=== PATIENT | female | born 1935 | race African-American/Black ===

== ENCOUNTER 2016-04-20 09:36 | Inpatient (IN) | payer OTHER ==
[2016-04-20] MEDS ORDERED: SODIUM CHLORIDE 500 ML IV STA (09:55)
--- NOTE | 2016-04-20 09:55 | PDOC ---
History of Present Illness - General History Source: Patient - History of Present Illness Timing/Duration: other Associated Symptoms: reports: cough, headaches, malaise, weakness. denies: chest pain, fever/chills, nausea/vomiting, shortness of breath <Brandy BarnettEitan - Last Filed: 04/20/16 17:18> <EctorToi - Last Filed: 04/24/16 09:29> - General Chief Complaint: Weakness Stated Complaint: WEAK Time Seen by Provider: 04/20/16 09:39 Past History - Past Medical History Anemia: No Asthma: No Cancer: No Cardiac Disorders: No CVA: No COPD: No CHF: No Dementia: No Diabetes: Yes GI Disorders: No Disorders: No HTN: Yes Hypercholesterolemia: Yes Liver Disease: No Seizures: No Thyroid Disease: No - Surgical History Appendectomy: No Cardiac Surgery: No Cholecystectomy: No Lung Surgery: No Neurologic Surgery: Yes (SURGERY FOR HERNIATED RISK) Orthopedic Surgery: No - Immunization History Immunization Up to Date: No - Psycho/Social/Smoking Cessation Hx Anxiety: No Suicidal Ideation: No Smoking History: Never smoked Have you smoked in the past 12 months: Yes Number of Cigarettes Smoked Daily: 10 Information on smoking cessation initiated: No 'Breaking Loose' booklet given: 03/23/14 Hx Alcohol Use: No Drug/Substance Use Hx: No Substance Use Type: None Hx Substance Use Treatment: No <[place],BrandyDian - Last Filed: 04/20/16 17:18> <Ector,Toi - Last Filed: 04/24/16 09:29> - Past Medical History Allergies/Adverse Reactions: Allergies Allergy/AdvReac Type Severity Reaction Status Date / Time No Known Allergies Allergy Verified 04/20/16 09:50 Home Medications: Ambulatory Orders Amlodipine Besylate [Norvasc -] 10 mg PO DAILY 03/22/14 Losartan Potassium 100 mg PO DAILY 03/23/14 Acetaminophen W/ Codeine #3 [Tylenol # 3 -] 1 tab PO TID 04/20/16 Brimonidine Tartrate/Timolol [Combigan Eye Drops] 1 drop OU DAILY 04/20/16 Dorzolamide HCl [Trusopt 2%] 1 drop OU BID 04/20/16 Insulin (Novolog 70/30) [Novolog Mix 70/30 Flexpen -] 15 units SQ DAILY Latanoprost 0.005% Eye Drops [Xalatan 0.005% Eye Drops -] 1 drop OU HS 04/20/16 Review of Systems - Review of Systems Constitutional: Yes: Malaise, Weakness. No: Chills, Fever Respiratory: Yes: Cough. No: Shortness of Breath Cardiac (ROS): No: Chest Pain ABD/GI: No: Diarrhea, Nausea, Vomiting, Abdominal cramping : No: Hematuria <Garrett Barnett - Last Filed: 04/20/16 17:18> *Physical Exam - Vital Signs Last Vital Signs Temp Pulse Resp BP Pulse Ox 98.5 F 123 H 18 164/70 94 L 04/20/16 09:50 04/20/16 09:50 04/20/16 09:50 04/20/16 09:50 04/20/16 09:50 - Physical Exam General Appearance: Yes: Appropriately Dressed. No: Apparent Distress HEENT: positive: Normal Voice. negative: Scleral Icterus (R), Scleral Icterus ( L) Neck: positive: Supple. negative: Lymphadenopathy (R), Lymphadenopathy (L) Respiratory/Chest: positive: Lungs Clear, Normal Breath Sounds. negative: Respiratory Distress Cardiovascular: positive: S1, S2, Tachycardia Gastrointestinal/Abdominal: positive: Soft. negative: Tender Integumentary: positive: Dry, Warm Neurologic: positive: Fully Oriented, Alert, Normal Mood/Affect <Garrett Barnett - Last Filed: 04/20/16 17:18> - Vital Signs Last Vital Signs Temp Pulse Resp BP Pulse Ox 97.4 F L 74 20 137/64 99 04/24/16 08:56 04/24/16 08:56 04/24/16 08:56 04/24/16 08:56 04/24/16 08:58 <Toi Barney - Last Filed: 04/24/16 09:29> Heart Score/ECG Review - ECG Intrepretation Comment:: 04/20/16 11:16 Sinus tachycardia to 118 bpm <Garrett Barnett - Last Filed: 04/20/16 17:18> ED Treatment Course - LABORATORY CBC & Chemistry Diagram: 04/20/16 09:55 04/20/16 11:18 <Garrett Barnett Last Filed: 04/20/16 17:18> - LABORATORY CBC & Chemistry Diagram: 04/20/16 09:55 04/20/16 11:18 - ADDITIONAL ORDERS Additional order review: 04/20/16 12:40 Respiratory Virus Panel - Preliminary Nasopharyngeal Swab 04/20/16 12:40 Influenza Types A,B Antigen (MARI) - Final Nasopharyngeal Swab - Final 04/20/16 09:55 RBC 4.60 MCV 93.0 MCHC 32.6 RDW 12.8 MPV 9.7 Neutrophils % 86.3 H D Lymphocytes % 4.8 L D Monocytes % 7.7 Eosinophils % 0.0 D Basophils % 1.2 - Medications Given in the ED: ED Medications Discontinued Medications Generic Name Dose Route Start Last Admin Trade Name Freq PRN Reason Stop Dose Admin Acetaminophen 650 mg 04/20/16 11:25 04/20/16 11:39 Tylenol - PO 04/20/16 11:26 650 mg ONCE ONE Administration Acetaminophen 650 mg 04/20/16 12:44 04/20/16 13:19 Tylenol - PO 04/20/16 12:45 Not Given ONCE ONE Acetaminophen/Codeine Phosphate 1 tab 04/20/16 19:43 04/23/16 03:30 Tylenol # 3 - PO 1 tab Q8H PRN Administration FEVER OR PAIN Ceftriaxone Sodium 1 mg 04/20/16 16:01 04/20/16 17:35 Rocephin - IVPUSH 04/20/16 16:02 1 mg ONCE ONE Administration Sodium Chloride 500 mls @ 1,000 mls/hr 04/20/16 09:55 04/20/16 10:00 Normal Saline - IV 04/20/16 10:24 1,000 mls/hr ASDIR STA Administration Azithromycin 500 mg/ Dextrose 250 mls @ 250 mls/hr 04/20/16 16:01 04/20/16 16: 21 IVPB 04/20/16 17:00 250 mls/hr ONCE ONE Administration Ceftriaxone Sodium 50 mls @ 100 mls/hr 04/20/16 20:15 04/20/16 21:36 Rocephin 1gm Ivpb (Pre-Docked) IVPB 04/20/16 20:44 100 mls/hr ONCE ONE Administration Dipyridamole 32.9 mg/ Dextrose 32.9 mls @ 493.5 mls/hr 04/23/16 10:00 04/23/16 10:50 IVPB 04/23/16 10:03 493.5 mls/hr ONCE ONE Administration Methylprednisolone Sodium Succinate 80 mg 04/20/16 22:00 04/22/16 09:51 Solu-Medrol - IVPB 80 mg BID ERASTO Administration Methylprednisolone Sodium Succinate 40 mg 04/22/16 18:00 04/23/16 02:05 Solu-Medrol - IVPB 40 mg Q8H-IV ERASTO Administration <EctorToi - Last Filed: 04/24/16 09:29> Medical Decision Making - Medical Decision Making 04/20/16 09:54 Initial Comments: 04/05/15 18:22 79 yo F, hx of IDDM, HTN, anxiety, chronic lower back pain, here w/ malaise, weakness, headache and cough x several days. Denies body aches, fever, chills, nausea, vomiting, abdominal pain, change in bowel movements, dysuria, chest pain or shortness of breath. See exam Cough w/ malaise Pt tachy and hypoxic in ED w/ clear chest/lungs and unremarkable exam otherwise R/o PNA vs CHF vs ACS vs PE, r/o influenza -CXR -ekg -labs -NC and IVF -reassess 04/20/16 11:26 04/20/16 16:32 Influenza neg. No PNA on CXR but given cough w/ fever and mild elevation in wbc , will give dose of abx for CAP. Dimer sent and elevated >1000, w/ no PE on CTA. Chronic lung dze seen however on imaging and pt does admit to >40 pack year hx, though no official dx of COPD/emphysema. No wheezing on exam and moving air well. BNP also elevated >1K but given no e/o fluid overload clinically, will hold off on lasix at this time. 04/20/16 16:[address] Manzo since 12 noon with no answer. Was initially told by answering staff that Thad will be in a prayer service until 3:30, but that he would return call after that. At this point, now 4:30, there has been no callback from [facility] and when contacted by ED scribe and ED ledger clerk, number busy on multiple attempts. Will contact hospitalist at this time 04/20/16 16:39 As per hospitalist, was able to contact Dr Manzo who is ok admitting pt to his service. States he would like for ED to call him back 04/20/16 16:41 04/20/16 16:43 04/20/16 17:[address] Manzo who recs giving nebs in ED. Pt vitals since improved. Currently has ready bed 04/20/16 17:19 <Garrett Barnett - Last Filed: 04/20/16 17:18> - Medical Decision Making 04/24/16 09:29 The patient was seen and evaluated in conjunction with DAV Munoz under my direct supervision, ancillary studies were reviewed. I independently interviewed and evaluated the patient and I agree with the plan as outlined by DAV Barnett . <Toi Barney - Last Filed: 04/24/16 09:29> *DC/Admit/Observation/Transfer - Discharge Dispostion Admit: Yes <Garrett Barnett - Last Filed: 04/20/16 17:18> <Toi Barney - Last Filed: 04/24/16 09:29> Diagnosis at time of Disposition: Weakness, SOB (shortness of breath) - Discharge Dispostion Condition at time of disposition: Fair - Referrals
[2016-04-20 10:52] LABS: TROPONIN I 0.02 ng/ml (0.00-0.05)
[2016-04-20 10:55] LABS: BASOPHIL 1.2 % (0-2.0); MCH 30.3 pg (25.7-33.7); MCHC 32.6 g/dl (32.0-36.0); MEAN PLT VOLUME 9.7 fl (7.5-11.1); NEUTROPHILS 86.3 % (42.8-82.8); PLATELET COUNT 213 K/MM3 (134-434); RDW 12.8 % (11.6-15.6); WHITE BLOOD COUNT 12.7 K/mm3 (4.0-10.0)
[2016-04-20] MEDS ORDERED: ACETAMINOPHEN 325 MG TABLET (FP) PO ONE ×2 (11:25→12:44)
[2016-04-20] MEDS ORDERED: ACETAMINOPHEN 325 MG TABLET (FP) ONE (11:26)
[2016-04-20 12:03] LABS: ALBUMIN 3.8 g/dl (3.4-5.0); BILIRUBIN,TOTAL 0.4 mg/dL (0.2-1.0); CALCIUM 9.1 mg/dL (8.5-10.1); CREATININE 1.1 mg/dL (0.55-1.02); TOT PROT 7.7 g/dl (6.4-8.2)
[2016-04-20] MEDS ORDERED: AZITHROMYCIN IVPB 500 MG in DEXTROSE 5%-WATER - 250 ML IVPB ONE (16:01)
[2016-04-20] MEDS ORDERED: CEFTRIAXONE 50 ML ONE (16:43)
[2016-04-20 16:57] LABS: URINE APPEARANCE CLOUDY; URINE BILIRUBIN NEGATIVE (NEGATIVE); URINE BLOOD NEGATIVE (NEGATIVE); URINE COLOR LTYELLOW; URINE GLUCOSE (UA) NEGATIVE (NEGATIVE); URINE KETONE 1+ (NEGATIVE); URINE NITRITE NEGATIVE (NEGATIVE); URINE UROBILINOGEN NEGATIVE E.U./dl (0.2-1.0)
[2016-04-20 17:07] LABS: URINE LEUK ESTERASE 3+ (NEGATIVE); URINE PROTEIN 1+ (NEGATIVE)
[2016-04-20 17:30] LABS: URINE MUCUS RARE; URINE RBC 30 /hpf (0-3); URINE WBC 301 /hpf (3-5)
[2016-04-20 17:49] VITALS: BMI 24.7
[2016-04-20] MEDS ORDERED: CEFTRIAXONE 50 ML IVPB ONE (20:15)
[2016-04-20] MEDS: methylPREDNISolone NA SUCC 125 MG/2 ML VIAL IVPB SCH (21:36)
[2016-04-20] MEDS: ALPRAZolam 0.25 MG TABLET PO SCH (21:37)
[2016-04-21] MEDS: glipiZIDE 5 MG TABLET (FP) PO SCH (06:28)
[2016-04-21] MEDS: INSULIN (NOVOLOG) ASPART 100 UNITS/ML 10ML VIAL SQ SCH ×2 (07:00→17:00)
--- NOTE | 2016-04-21 07:22 | HP ---
DATE OF ADMISSION: 04/20/2016 HISTORY OF PRESENT ILLNESS: This is an 80-year-old female known to me for many years diagnosed to have COPD, hypertension, ASHD, and diabetes. Now, she came to the emergency room with components of weakness no appetite, not eating, losing weight, also complains of shortness of breath. In the ER, she was told that patient was in exacerbation of COPD, so she got admitted. PHYSICAL EXAMINATION: Vital signs: At present, BP 130/80, pulse 72, respirations 20, temperature 98. HEENT: Unremarkable. Neck: supple. Lungs: Bilateral crepitations. Air entry poor. Heart: S1, S2 normal. No S3, S4. Abdomen: Soft. Extremities: Legs no edema. Neurologic: Grossly normal. LABORATORY REPORTS: CT of the chest done to rule out PE was negative. Chronic lung disease was reported in the CT scan. Chest x-ray showed no pneumonia. IMPRESSION: Exacerbation of chronic obstructive pulmonary disease, failure to thrive, hypertension, and diabetes. PLAN: Continue IV steroids and present medication. Pulmonary consult to Dr. Farley. Continue present medications, IV antibiotics, IV steroids. Will follow. ALICJA FARAH M.D. [id number]
[2016-04-21] MEDS ORDERED: PT OWN MED DRAWER 7, Y5N ONE (07:41)
--- NOTE | 2016-04-21 09:11 | CON.CARD ---
Consult - History of Present Illness History of Present Illness: 79 yo F, hx of IDDM, HTN, anxiety, chronic lower back pain, here w/ malaise, weakness, headache and cough x several days. Denies body aches, fever, chills, nausea, vomiting, abdominal pain, change in bowel movements, dysuria, chest pain or shortness of breath. - History Source History Provided By: Patient, Medical Record - Past Medical History Cardio/Vascular: Yes: HTN ...: No Endocrine: Yes: Diabetes Mellitus - Alcohol/Substance Use Hx Alcohol Use: No - Smoking History Smoking history: Current some day smoker Have you smoked in the past 12 months: Yes Aproximately how many cigarettes per day: 3 Home Medications - Allergies Allergies/Adverse Reactions: Allergies Allergy/AdvReac Type Severity Reaction Status Date / Time No Known Allergies Allergy Verified 04/20/16 09:50 - Home Medications Home Medications: Ambulatory Orders Amlodipine Besylate [Norvasc -] 10 mg PO DAILY 03/22/14 Losartan Potassium 100 mg PO DAILY 03/23/14 Acetaminophen W/ Codeine #3 [Tylenol # 3 -] 1 tab PO TID 04/20/16 Brimonidine Tartrate/Timolol [Combigan Eye Drops] 1 drop OU DAILY 04/20/16 Dorzolamide HCl [Trusopt 2%] 1 drop OU BID 04/20/16 Insulin (Novolog 70/30) [Novolog Mix 70/30 Flexpen -] 15 units SQ DAILY Latanoprost 0.005% Eye Drops [Xalatan 0.005% Eye Drops -] 1 drop OU HS 04/20/16 Review of Systems - Review of Systems Constitutional: reports: No Symptoms Eyes: reports: No Symptoms HENT: reports: No Symptoms Neck: reports: No Symptoms Cardiovascular: reports: No Symptoms Respiratory: reports: Cough, SOB, SOB on Exertion Gastrointestinal: reports: No Symptoms Genitourinary: reports: No Symptoms Breasts: reports: No Symptoms Reported Musculoskeletal: reports: No Symptoms Integumentary: reports: No Symptoms Neurological: reports: No Symptoms Endocrine: reports: No Symptoms Hematology/Lymphatic: reports: No Symptoms Psychiatric: reports: No Symptoms Vital Signs: Vital Signs Temperature 99.0 F 04/21/16 06:00 Pulse Rate 88 04/21/16 06:00 Respiratory Rate 18 04/21/16 06:00 Blood Pressure 142/66 04/21/16 06:00 O2 Sat by Pulse Oximetry (%) 96 04/20/16 21:00 Constitutional: Yes: Well Nourished, No Distress, Calm Eyes: Yes: WNL, Conjunctiva Clear, EOM Intact HENT: Yes: WNL, Atraumatic, Normocephalic Neck: Yes: WNL, Supple, Trachea Midline Respiratory: Yes: WNL, Regular, CTA Bilaterally Gastrointestinal: Yes: WNL, Normal Bowel Sounds Renal/: Yes: WNL Cardiovascular: Yes: WNL, Regular Rate and Rhythm Musculoskeletal: Yes: WNL Extremities: Yes: WNL Integumentary: Yes: WNL Neurological: Yes: WNL, Alert, Oriented ...Motor Strength: WNL Psychiatric: Yes: WNL, Alert, Oriented - Other Data Labs, Other Data: Laboratory Tests 04/20/16 04/20/16 04/20/16 09:55 10:08 10:20 WBC 12.7 H RBC 4.60 Hgb 13.9 Hct 42.8 MCV 93.0 MCHC 32.6 RDW 12.8 Plt Count 213 MPV 9.7 Neutrophils % 86.3 H D Lymphocytes % 4.8 L D Monocytes % 7.7 Eosinophils % 0.0 D Basophils % 1.2 D-Dimer Sodium Potassium Chloride Carbon Dioxide Anion Gap BUN Creatinine Creat Clearance w eGFR POC Glucometer Random Glucose Calcium Total Bilirubin AST ALT Alkaline Phosphatase Creatine Kinase 177 D CK-MB (CK-2) 2.293 Troponin I 0.02 B-Natriuretic Peptide 1254.18 H Total Protein Albumin Urine Color Ltyellow Urine Appearance Cloudy Urine pH 5.0 D Ur Specific [place] 1.033 Urine Protein 1+ H Urine Glucose (UA) Negative Urine Ketones 1+ H Urine Blood Negative Urine Nitrite Negative Urine Bilirubin Negative Urine Urobilinogen Negative Ur Leukocyte Esterase 3+ H Urine RBC 30 Urine WBC 301 Ur Epithelial Cells Rare Urine Mucus Rare 04/20/16 04/20/16 04/21/16 11:18 11:18 06:27 WBC RBC Hgb Hct MCV MCHC RDW Plt Count MPV Neutrophils % Lymphocytes % Monocytes % Eosinophils % Basophils % D-Dimer 1009 H Sodium 138 Potassium 4.0 Chloride 98 Carbon Dioxide 29 Anion Gap 11 BUN 16 D Creatinine 1.1 H Creat Clearance w eGFR 47.67 POC Glucometer 109 Random Glucose 108 H D Calcium 9.1 Total Bilirubin 0.4 AST 47 H D ALT 32 D Alkaline Phosphatase 113 Creatine Kinase CK-MB (CK-2) Troponin I B-Natriuretic Peptide Total Protein 7.7 Albumin 3.8 Urine Color Urine Appearance Urine pH Ur Specific [place] Urine Protein Urine Glucose (UA) Urine Ketones Urine Blood Urine Nitrite Urine Bilirubin Urine Urobilinogen Ur Leukocyte Esterase Urine RBC Urine WBC Ur Epithelial Cells Urine Mucus Imaging - Results Chest X-ray: Image Reviewed (no i/e) Cat Scan: Report Reviewed (no pe) EKG: Image Reviewed (sr st changes r/o ischemia) Problem List - Problems (1) SOB (shortness of breath) Code(s): R06.02 - SHORTNESS OF BREATH (2) Weakness Code(s): R53.1 - WEAKNESS (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 ischemia plan; echo mibi stress test asa 325 qd lasix po check lipid profile cont telemetry
[2016-04-21] MEDS: ACETAMINOPHEN WITH CODEINE 300MG/30MG TABLET PO PRN (09:27)
[2016-04-21] MEDS: methylPREDNISolone NA SUCC 125 MG/2 ML VIAL IVPB SCH ×2 (09:28→22:36)
[2016-04-21] MEDS: ALPRAZolam 0.25 MG TABLET PO SCH ×2 (09:28→22:36)
[2016-04-21] MEDS: ASPIRIN 325 MG TABLET PO SCH (09:29)
[2016-04-21] MEDS: LOSARTAN POTASSIUM 50 MG TABLET (FP) PO SCH (09:29)
[2016-04-21] MEDS: FUROSEMIDE 20 MG TABLET (FP) PO SCH (09:29)
[2016-04-21] MEDS: AZITHROMYCIN IVPB 250 MG in DEXTROSE 5%-WATER - 250 ML IVPB SCH (11:31)
--- NOTE | 2016-04-21 12:32 | CON.PULM ---
Consult Consult Specialty:: PULM/CCM Referred by:: E[facility] Reason for Consultation:: SOB - History of Present Illness Chief Complaint: SOB History of Present Illness: 79 F, former smoker, IDDM, HTN, anxiety, and chronic lower back pain. Admitted via the ER due to malaise, weakness, headache and cough x 4 to 5 days. No travel history or sick contacts. Denies fever, chills, nausea, vomiting, abdominal pain, chest pain or shortness of breath. No night sweats or hemoptysis. - History Source History Provided By: Patient Limitations to Obtaining History: Poor Historian - Past Medical History Cardio/Vascular: Yes: HTN ...: No Endocrine: Yes: Diabetes Mellitus - Alcohol/Substance Use Hx Alcohol Use: No - Smoking History Smoking history: Current some day smoker Have you smoked in the past 12 months: Yes Aproximately how many cigarettes per day: 3 Home Medications - Allergies Allergies/Adverse Reactions: Allergies Allergy/AdvReac Type Severity Reaction Status Date / Time No Known Allergies Allergy Verified 04/20/16 09:50 - Home Medications Home Medications: Ambulatory Orders Amlodipine Besylate [Norvasc -] 10 mg PO DAILY 03/22/14 Losartan Potassium 100 mg PO DAILY 03/23/14 Acetaminophen W/ Codeine #3 [Tylenol # 3 -] 1 tab PO TID 04/20/16 Brimonidine Tartrate/Timolol [Combigan Eye Drops] 1 drop OU DAILY 04/20/16 Dorzolamide HCl [Trusopt 2%] 1 drop OU BID 04/20/16 Insulin (Novolog 70/30) [Novolog Mix 70/30 Flexpen -] 15 units SQ DAILY Latanoprost 0.005% Eye Drops [Xalatan 0.005% Eye Drops -] 1 drop OU HS 04/20/16 Review of Systems - Review of Systems Constitutional: reports: Loss of Appetite, Malaise, Weakness. denies: Chills, Fever, Night Sweats, Unintentional Wgt. Loss Eyes: reports: No Symptoms HENT: reports: No Symptoms Neck: reports: No Symptoms Cardiovascular: denies: Chest Pain, Edema, Palpitations, Shortness of Breath Respiratory: reports: Cough. denies: Hemoptysis, SOB, SOB on Exertion, Wheezing Gastrointestinal: reports: No Symptoms Genitourinary: reports: No Symptoms Breasts: reports: No Symptoms Reported Musculoskeletal: reports: No Symptoms Integumentary: reports: No Symptoms Neurological: reports: No Symptoms Endocrine: reports: No Symptoms Hematology/Lymphatic: reports: No Symptoms Psychiatric: reports: No Symptoms Physical Exam Vital Sings: Vital Signs Temperature 99.0 F 04/21/16 06:00 Pulse Rate 88 04/21/16 06:00 Respiratory Rate 18 04/21/16 06:00 Blood Pressure 142/66 04/21/16 06:00 O2 Sat by Pulse Oximetry (%) 96 04/20/16 21:00 Constitutional: Yes: No Distress, Calm Eyes: Yes: Conjunctiva Clear, EOM Intact HENT: Yes: Atraumatic, Normocephalic Neck: Yes: Supple, Trachea Midline Cardiovascular: Yes: Regular Rate and Rhythm Respiratory: Yes: Cough, On Nasal O2, Rhonchi, Tachypnea, Wheezes. No: Accessory Muscle Use, Rales, SOB, SOB on Exertion, Stridor ...Inspection: Yes: WNL ...Clubbing: No Gastrointestinal: Yes: Normal Bowel Sounds, Soft Musculoskeletal: Yes: WNL Extremities: Yes: WNL Edema: No Peripheral Pulses WNL: Yes Integumentary: Yes: WNL Neurological: Yes: WNL, Alert, Oriented ...Motor Strength: WNL Psychiatric: Yes: WNL, Alert, Oriented Imaging - Results Chest X-ray: Report Reviewed, Image Reviewed Cat Scan: Report Reviewed, Image Reviewed Problem List - Problems (1) SOB (shortness of breath) Code(s): R06.02 - SHORTNESS OF BREATH (2) Weakness Code(s): R53.1 - WEAKNESS (3) Atelectasis of right lung Code(s): J98.11 - ATELECTASIS (4) URI (upper respiratory infection) Code(s): J06.9 - ACUTE UPPER RESPIRATORY INFECTION, UNSPECIFIED Assessment/Plan PLAN: Agree with Medrol BD TX added Short course of Zithromax Ambulate as tolerated PFTs once stable as an outpatient No smoking Check urine Check sputum Will follow Thank you. Dr Maloney
[2016-04-21] MEDS: ALBUTEROL SO4 0.083% IH SOL 2.5 MG/3 ML VIAL.NEB. NEB SCH ×2 (14:10→22:10)
[2016-04-22] MEDS: glipiZIDE 5 MG TABLET (FP) PO SCH (06:03)
[2016-04-22] MEDS: INSULIN (NOVOLOG) ASPART 100 UNITS/ML 10ML VIAL SQ SCH ×2 (06:05→17:35)
[2016-04-22] MEDS: ALBUTEROL SO4 0.083% IH SOL 2.5 MG/3 ML VIAL.NEB. NEB SCH ×3 (06:20→23:10)
[2016-04-22] MEDS: ALPRAZolam 0.25 MG TABLET PO SCH ×2 (09:51→21:08)
[2016-04-22] MEDS: methylPREDNISolone NA SUCC 125 MG/2 ML VIAL IVPB SCH (09:51)
[2016-04-22] MEDS: LOSARTAN POTASSIUM 50 MG TABLET (FP) PO SCH (09:51)
[2016-04-22] MEDS: FUROSEMIDE 20 MG TABLET (FP) PO SCH (09:51)
[2016-04-22] MEDS: ASPIRIN 325 MG TABLET PO SCH (09:51)
--- NOTE | 2016-04-22 09:53 | PN ---
Progress Note, Physician History of Present Illness: 79 yo F, hx of IDDM, HTN, anxiety, chronic lower back pain, here w/ malaise, weakness, headache and cough x several days. Denies body aches, fever, chills, nausea, vomiting, abdominal pain, change in bowel movements, dysuria, chest pain or shortness of breath. - Current Medication List Current Medications: Active Medications Acetaminophen/Codeine Phosphate (Tylenol # 3 -) 1 tab PO Q8H PRN PRN Reason: FEVER OR PAIN Last Admin: 04/21/16 09:27 Dose: 1 tab Albuterol Sulfate (Ventolin 0.083% Nebulizer Soln -) 1 amp NEB TIDR [facility] Last Admin: 04/22/16 06:20 Dose: 1 amp Alprazolam (Xanax -) 0.5 mg PO BID [facility] Last Admin: 04/21/16 22:36 Dose: 0.5 mg Aspirin (Asa -) 325 mg PO DAILY [facility] Last Admin: 04/21/16 09:29 Dose: 325 mg Furosemide (Lasix -) 20 mg PO DAILY [facility] Last Admin: 04/21/16 09:29 Dose: 20 mg Glipizide (Glucotrol -) 5 mg PO DAILY@0700 [facility] Last Admin: 04/22/16 06:03 Dose: 5 mg Azithromycin 250 mg/ Dextrose 250 mls @ 250 mls/hr IVPB DAILY [facility] Last Admin: 04/21/16 11:31 Dose: 250 mls/hr Insulin Aspart (Novolog Vial) 8 units SQ BID@0700,1630 [facility] Last Admin: 04/22/16 06:05 Dose: 8 units Losartan Potassium (Cozaar -) 50 mg PO DAILY [facility] Last Admin: 04/21/16 09:29 Dose: 50 mg Methylprednisolone Sodium Succinate (Solu-Medrol -) 80 mg IVPB BID [facility] Last Admin: 04/21/16 22:36 Dose: 80 mg - Objective Vital Signs: Vital Signs Temperature 98 F 04/22/16 05:00 Pulse Rate 59 L 04/22/16 05:00 Respiratory Rate 18 04/22/16 05:00 Blood Pressure 120/57 04/22/16 05:00 O2 Sat by Pulse Oximetry (%) 96 04/22/16 05:00 Eyes: Yes: WNL, Conjunctiva Clear, EOM Intact HENT: Yes: WNL, Atraumatic, Normocephalic Neck: Yes: WNL, Supple, Trachea Midline Cardiovascular: Yes: WNL, Regular Rate and Rhythm Respiratory: Yes: WNL, Regular, CTA Bilaterally Gastrointestinal: Yes: WNL, Normal Bowel Sounds Genitourinary: Yes: WNL Musculoskeletal: Yes: WNL Extremities: Yes: WNL Edema: No Integumentary: Yes: WNL Neurological: Yes: WNL, Alert, Oriented ...Motor Strength: WNL Psychiatric: Yes: WNL Problem List - Problems (1) SOB (shortness of breath) Code(s): R06.02 - SHORTNESS OF BREATH (2) Weakness Code(s): R53.1 - WEAKNESS (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 ischemia plan; echo mibi stress test asa 325 qd lasix po check lipid profile cont telemetry
[2016-04-22] MEDS ORDERED: PT OWN MED DRAWER 7, Y5N ONE (09:55)
[2016-04-22] MEDS: AZITHROMYCIN IVPB 250 MG in DEXTROSE 5%-WATER - 250 ML IVPB SCH (10:51)
--- NOTE | 2016-04-22 12:37 | PN ---
Progress Note, Physician Chief Complaint: Cough persists History of Present Illness: Admitted with COPD exacerbation - Current Medication List Current Medications: Active Medications Acetaminophen/Codeine Phosphate (Tylenol # 3 -) 1 tab PO Q8H PRN PRN Reason: FEVER OR PAIN Last Admin: 04/21/16 09:27 Dose: 1 tab Albuterol Sulfate (Ventolin 0.083% Nebulizer Soln -) 1 amp NEB TIDR [facility] Last Admin: 04/22/16 06:20 Dose: 1 amp Alprazolam (Xanax -) 0.5 mg PO BID [facility] Last Admin: 04/22/16 09:51 Dose: 0.5 mg Aspirin (Asa -) 325 mg PO DAILY [facility] Last Admin: 04/22/16 09:51 Dose: 325 mg Furosemide (Lasix -) 20 mg PO DAILY [facility] Last Admin: 04/22/16 09:51 Dose: 20 mg Glipizide (Glucotrol -) 5 mg PO DAILY@0700 [facility] Last Admin: 04/22/16 06:03 Dose: 5 mg Azithromycin 250 mg/ Dextrose 250 mls @ 250 mls/hr IVPB DAILY [facility] Last Admin: 04/22/16 10:51 Dose: 250 mls/hr Insulin Aspart (Novolog Vial) 8 units SQ BID@0700,1630 [facility] Last Admin: 04/22/16 06:05 Dose: 8 units Losartan Potassium (Cozaar -) 50 mg PO DAILY [facility] Last Admin: 04/22/16 09:51 Dose: 50 mg Methylprednisolone Sodium Succinate (Solu-Medrol -) 80 mg IVPB BID [facility] Last Admin: 04/22/16 09:51 Dose: 80 mg - Objective Vital Signs: Vital Signs Temperature 98 F 04/22/16 05:00 Pulse Rate 76 04/22/16 10:00 Respiratory Rate 20 04/22/16 10:00 Blood Pressure 140/58 04/22/16 10:00 O2 Sat by Pulse Oximetry (%) 98 04/22/16 10:00 Constitutional: Yes: Calm Eyes: Yes: WNL HENT: Yes: WNL Neck: Yes: WNL Cardiovascular: Yes: Regular Rate and Rhythm Respiratory: Yes: Poor Air Entry ...Rectal Exam: Yes: Deferred Genitourinary: Yes: WNL Assessment/Plan Blood sugar high probably due to IV steroids
--- NOTE | 2016-04-22 14:09 | PN ---
Progress Note (short form) - Note Progress Note: OOB to chair. Breathing feels a little better. Congested cough. No CP. Intake & Output 04/19/16 04/20/16 04/21/16 04/22/16 23:59 23:59 23:59 23:59 Intake Total 220 540 540 Output Total 400 400 Balance -180 140 540 Weight 127 lb Last Vital Signs Temp Pulse Resp BP Pulse Ox 98 F 76 20 140/58 98 04/22/16 05:00 04/22/16 10:00 04/22/16 10:00 04/22/16 10:00 04/22/16 10:00 Active Medications Generic Name Dose Route Start Last Admin Trade Name Freq PRN Reason Stop Dose Admin Acetaminophen/Codeine Phosphate 1 tab 04/20/16 19:43 04/21/16 09:27 Tylenol # 3 - PO 1 tab Q8H PRN Administration FEVER OR PAIN Albuterol Sulfate 1 amp 04/21/16 14:00 04/22/16 06:20 Ventolin 0.083% Nebulizer Soln - NEB 1 amp TIDR [facility] Administration Alprazolam 0.5 mg 04/20/16 22:00 04/22/16 09:51 Xanax - PO 0.5 mg BID [facility] Administration Aspirin 325 mg 04/21/16 10:00 04/22/16 09:51 Asa - PO 325 mg DAILY [facility] Administration Furosemide 20 mg 04/21/16 10:00 04/22/16 09:51 Lasix - PO 20 mg DAILY [facility] Administration Glipizide 5 mg 04/21/16 07:00 04/22/16 06:03 Glucotrol - PO 5 mg DAILY@0700 [facility] Administration Azithromycin 250 mg/ Dextrose 250 mls @ 250 mls/hr 04/21/16 10:00 04/22/16 10: 51 IVPB 250 mls/hr DAILY [facility] Administration Insulin Aspart 8 units 04/21/16 07:00 04/22/16 06:05 Novolog Vial SQ 8 units BID@0700,1630 [facility] Administration Losartan Potassium 50 mg 04/21/16 10:00 04/22/16 09:51 Cozaar - PO 50 mg DAILY [facility] Administration Methylprednisolone Sodium Succinate 40 mg 04/22/16 18:00 Solu-Medrol - IVPB Q8H-IV [facility] Constitutional: Yes: Mildly tachypneic at rest Eyes: Yes: Conjunctiva Clear, EOM Intact HENT: Yes: Atraumatic, Normocephalic Neck: Yes: Supple, Trachea Midline Cardiovascular: Yes: Regular Rate and Rhythm Respiratory: Yes: Cough, On Nasal O2, Rhonchi, Tachypnea, Wheezes. No: Accessory Muscle Use, Rales, SOB, SOB on Exertion, Stridor ...Inspection: Yes: WNL ...Clubbing: No Gastrointestinal: Yes: Normal Bowel Sounds, Soft Musculoskeletal: Yes: WNL Extremities: Yes: WNL Edema: No Peripheral Pulses WNL: Yes Integumentary: Yes: WNL Neurological: Yes: WNL, Alert, Oriented ...Motor Strength: WNL Psychiatric: Yes: WNL, Alert, Oriented Laboratory Results - last 24 hr 04/22/16 04/22/16 04/22/16 05:47 05:50 12:04 POC Glucometer 278 300 Triglycerides 110 Cholesterol 162 Total LDL Cholesterol 83 HDL Cholesterol 75 H Problem List - Problems (1) SOB (shortness of breath) Code(s): R06.02 - SHORTNESS OF BREATH (2) Weakness Code(s): R53.1 - WEAKNESS (3) Atelectasis of right lung Code(s): J98.11 - ATELECTASIS (4) URI (upper respiratory infection) Code(s): J06.9 - ACUTE UPPER RESPIRATORY INFECTION, UNSPECIFIED Assessment/Plan Medrol at current dose BD TX Short course of Zithromax Ambulate as tolerated PFTs once stable as an outpatient No smoking Check sputum Add Mucinex Dr Maloney Problem List - Problems (1) SOB (shortness of breath) Code(s): R06.02 - SHORTNESS OF BREATH (2) Weakness Code(s): R53.1 - WEAKNESS (3) Atelectasis of right lung Code(s): J98.11 - ATELECTASIS (4) URI (upper respiratory infection) Code(s): J06.9 - ACUTE UPPER RESPIRATORY INFECTION, UNSPECIFIED
[2016-04-22] MEDS: methylPREDNISolone NA SUCC 40 MG/1 ML VIAL IVPB SCH (17:35)
[2016-04-22] MEDS: guaiFENesin 600 MG TABLET.ER (FP) PO SCH (21:07)
[2016-04-23] MEDS: methylPREDNISolone NA SUCC 40 MG/1 ML VIAL IVPB SCH (02:05)
[2016-04-23] MEDS: ACETAMINOPHEN WITH CODEINE 300MG/30MG TABLET PO PRN (03:30)
[2016-04-23] MEDS: glipiZIDE 5 MG TABLET (FP) PO SCH (06:20)
[2016-04-23] MEDS: INSULIN (NOVOLOG) ASPART 100 UNITS/ML 10ML VIAL SQ SCH ×2 (06:21→16:57)
--- NOTE | 2016-04-23 09:46 | PN ---
Progress Note, Physician History of Present Illness: Nuclear stress to day - Current Medication List Current Medications: Active Medications Acetaminophen/Codeine Phosphate (Tylenol # 3 -) 1 tab PO Q8H PRN PRN Reason: FEVER OR PAIN Last Admin: 04/23/16 03:30 Dose: 1 tab Albuterol Sulfate (Ventolin 0.083% Nebulizer Soln -) 1 amp NEB TIDR [facility] Last Admin: 04/22/16 23:10 Dose: 1 amp Alprazolam (Xanax -) 0.5 mg PO BID [facility] Last Admin: 04/22/16 21:08 Dose: 0.5 mg Aspirin (Asa -) 325 mg PO DAILY [facility] Last Admin: 04/22/16 09:51 Dose: 325 mg Furosemide (Lasix -) 20 mg PO DAILY [facility] Last Admin: 04/22/16 09:51 Dose: 20 mg Glipizide (Glucotrol -) 5 mg PO DAILY@0700 [facility] Last Admin: 04/23/16 06:20 Dose: Not Given Guaifenesin (Mucinex -) 600 mg PO BID [facility] Last Admin: 04/22/16 21:07 Dose: 600 mg Azithromycin 250 mg/ Dextrose 250 mls @ 250 mls/hr IVPB DAILY [facility] Last Admin: 04/22/16 10:51 Dose: 250 mls/hr Dipyridamole 32.9 mg/ Dextrose 32.9 mls @ 493.5 mls/hr IVPB ONCE ONE Stop: 04/23/16 10:03 Insulin Aspart (Novolog Vial) 8 units SQ BID@0700,1630 [facility] Last Admin: 04/23/16 06:21 Dose: 8 units Losartan Potassium (Cozaar -) 50 mg PO DAILY [facility] Last Admin: 04/22/16 09:51 Dose: 50 mg Methylprednisolone Sodium Succinate (Solu-Medrol -) 40 mg IVPB Q8H-IV [facility] Last Admin: 04/23/16 02:05 Dose: 40 mg - Objective Vital Signs: Vital Signs Temperature 97.9 F 04/23/16 06:00 Pulse Rate 68 04/23/16 06:00 Respiratory Rate 19 04/23/16 06:00 Blood Pressure 123/79 04/23/16 06:00 O2 Sat by Pulse Oximetry (%) 99 04/22/16 21:00 Constitutional: Yes: No Distress Eyes: Yes: WNL HENT: Yes: WNL Neck: Yes: WNL Cardiovascular: Yes: WNL Respiratory: Yes: WNL, Diminished, On Nasal O2 Gastrointestinal: Yes: WNL ...Rectal Exam: Yes: Deferred Musculoskeletal: Yes: Back Pain Neurological: Yes: Alert Assessment/Plan Change solumedrol to PO prednisone
[2016-04-23] MEDS ORDERED: DIPYRIDAMOLE STRESS TEST 32.9 MG in DEXTROSE 5%-WATER - 26.32 ML IVPB ONE (10:00)
[2016-04-23] MEDS: guaiFENesin 600 MG TABLET.ER (FP) PO SCH ×2 (11:44→21:40)
[2016-04-23] MEDS: ALPRAZolam 0.25 MG TABLET PO SCH ×2 (11:45→21:41)
[2016-04-23] MEDS: FUROSEMIDE 20 MG TABLET (FP) PO SCH (11:45)
[2016-04-23] MEDS: ASPIRIN 325 MG TABLET PO SCH (11:45)
[2016-04-23] MEDS: predniSONE 20 MG TABLET (UD) PO SCH ×2 (11:45→21:40)
[2016-04-23] MEDS: LOSARTAN POTASSIUM 50 MG TABLET (FP) PO SCH (11:45)
[2016-04-23] MEDS: AZITHROMYCIN IVPB 250 MG in DEXTROSE 5%-WATER - 250 ML IVPB SCH (11:46)
--- NOTE | 2016-04-23 12:34 | PN ---
Progress Note, Physician History of Present Illness: 79 yo F, hx of IDDM, HTN, anxiety, chronic lower back pain, here w/ malaise, weakness, headache and cough x several days. Denies body aches, fever, chills, nausea, vomiting, abdominal pain, change in bowel movements, dysuria, chest pain or shortness of breath. - Current Medication List Current Medications: Active Medications Acetaminophen/Codeine Phosphate (Tylenol # 3 -) 1 tab PO Q8H PRN PRN Reason: FEVER OR PAIN Last Admin: 04/23/16 03:30 Dose: 1 tab Albuterol Sulfate (Ventolin 0.083% Nebulizer Soln -) 1 amp NEB TIDR [facility] Last Admin: 04/22/16 23:10 Dose: 1 amp Alprazolam (Xanax -) 0.5 mg PO BID [facility] Last Admin: 04/23/16 11:45 Dose: 0.5 mg Aspirin (Asa -) 325 mg PO DAILY [facility] Last Admin: 04/23/16 11:45 Dose: 325 mg Furosemide (Lasix -) 20 mg PO DAILY [facility] Last Admin: 04/23/16 11:45 Dose: 20 mg Glipizide (Glucotrol -) 5 mg PO DAILY@0700 [facility] Last Admin: 04/23/16 06:20 Dose: Not Given Guaifenesin (Mucinex -) 600 mg PO BID [facility] Last Admin: 04/23/16 11:44 Dose: 600 mg Azithromycin 250 mg/ Dextrose 250 mls @ 250 mls/hr IVPB DAILY [facility] Last Admin: 04/23/16 11:46 Dose: 250 mls/hr Insulin Aspart (Novolog Vial) 8 units SQ BID@0700,1630 [facility] Last Admin: 04/23/16 06:21 Dose: 8 units Losartan Potassium (Cozaar -) 50 mg PO DAILY [facility] Last Admin: 04/23/16 11:45 Dose: 50 mg Prednisone (Deltasone -) 20 mg PO BID [facility] Last Admin: 04/23/16 11:45 Dose: 20 mg - Objective Vital Signs: Vital Signs Temperature 98 F 04/23/16 10:00 Pulse Rate 70 04/23/16 10:00 Respiratory Rate 18 04/23/16 10:00 Blood Pressure 156/86 04/23/16 10:00 O2 Sat by Pulse Oximetry (%) 98 04/23/16 09:00 Eyes: Yes: WNL, Conjunctiva Clear, EOM Intact HENT: Yes: WNL, Atraumatic, Normocephalic Neck: Yes: WNL, Supple, Trachea Midline Cardiovascular: Yes: WNL, Regular Rate and Rhythm Respiratory: Yes: WNL, Regular, CTA Bilaterally Gastrointestinal: Yes: WNL, Normal Bowel Sounds Genitourinary: Yes: WNL Musculoskeletal: Yes: WNL Extremities: Yes: WNL Edema: No Integumentary: Yes: WNL Neurological: Yes: WNL, Alert, Oriented ...Motor Strength: WNL Psychiatric: Yes: WNL Problem List - Problems (1) SOB (shortness of breath) Code(s): R06.02 - SHORTNESS OF BREATH (2) Weakness Code(s): R53.1 - WEAKNESS (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 ischemia plan; echo awaiting mibi stress test results asa 325 qd lasix po check lipid profile cont telemetry
[2016-04-23] MEDS: ALBUTEROL SO4 0.083% IH SOL 2.5 MG/3 ML VIAL.NEB. NEB SCH (14:00)
[2016-04-24] MEDS: glipiZIDE 5 MG TABLET (FP) PO SCH (06:34)
[2016-04-24] MEDS: INSULIN (NOVOLOG) ASPART 100 UNITS/ML 10ML VIAL SQ SCH ×2 (06:34→17:06)
[2016-04-24] MEDS: ALBUTEROL SO4 0.083% IH SOL 2.5 MG/3 ML VIAL.NEB. NEB SCH (06:57)
--- NOTE | 2016-04-24 09:16 | PN ---
Progress Note, Physician History of Present Illness: nuclear stress test neg - Current Medication List Current Medications: Active Medications Albuterol Sulfate (Ventolin 0.083% Nebulizer Soln -) 1 amp NEB TIDR [facility] Last Admin: 04/24/16 06:57 Dose: 1 amp Alprazolam (Xanax -) 0.5 mg PO BID [facility] Last Admin: 04/23/16 21:41 Dose: 0.5 mg Aspirin (Asa -) 325 mg PO DAILY [facility] Last Admin: 04/23/16 11:45 Dose: 325 mg Furosemide (Lasix -) 20 mg PO DAILY [facility] Last Admin: 04/23/16 11:45 Dose: 20 mg Glipizide (Glucotrol -) 5 mg PO DAILY@0700 [facility] Last Admin: 04/24/16 06:34 Dose: 5 mg Guaifenesin (Mucinex -) 600 mg PO BID [facility] Last Admin: 04/23/16 21:40 Dose: 600 mg Azithromycin 250 mg/ Dextrose 250 mls @ 250 mls/hr IVPB DAILY [facility] Last Admin: 04/23/16 11:46 Dose: 250 mls/hr Insulin Aspart (Novolog Vial) 8 units SQ BID@0700,1630 [facility] Last Admin: 04/24/16 06:34 Dose: 8 units Losartan Potassium (Cozaar -) 50 mg PO DAILY [facility] Last Admin: 04/23/16 11:45 Dose: 50 mg Prednisone (Deltasone -) 20 mg PO BID [facility] Last Admin: 04/23/16 21:40 Dose: 20 mg - Objective Vital Signs: Vital Signs Temperature 97.4 F L 04/24/16 08:56 Pulse Rate 74 04/24/16 08:56 Respiratory Rate 20 04/24/16 08:56 Blood Pressure 137/64 04/24/16 08:56 O2 Sat by Pulse Oximetry (%) 99 04/24/16 08:58 Constitutional: Yes: Calm Eyes: Yes: WNL HENT: Yes: WNL Neck: Yes: WNL Respiratory: Yes: Wheezes Gastrointestinal: Yes: WNL ...Rectal Exam: Yes: Deferred Genitourinary: Yes: WNL Breast(s): Yes: WNL Musculoskeletal: Yes: Back Pain Assessment/Plan Continue IV steroids
[2016-04-24] MEDS: ALPRAZolam 0.25 MG TABLET PO SCH ×2 (10:18→21:47)
[2016-04-24] MEDS: LOSARTAN POTASSIUM 50 MG TABLET (FP) PO SCH (10:18)
[2016-04-24] MEDS: predniSONE 20 MG TABLET (UD) PO SCH ×2 (10:18→21:47)
[2016-04-24] MEDS: AZITHROMYCIN IVPB 250 MG in DEXTROSE 5%-WATER - 250 ML IVPB SCH (10:18)
[2016-04-24] MEDS: FUROSEMIDE 20 MG TABLET (FP) PO SCH (10:18)
[2016-04-24] MEDS: guaiFENesin 600 MG TABLET.ER (FP) PO SCH ×2 (10:18→21:47)
--- NOTE | 2016-04-24 10:33 | PN ---
Progress Note (short form) - Note Progress Note: PULMONARY Breathing about the same as yesterday but improved since admission. + nonproductive cough and wheezing. No fevers or chills. Last Vital Signs Temp Pulse Resp BP Pulse Ox 97.4 F L 74 20 137/64 99 04/24/16 08:56 04/24/16 08:56 04/24/16 08:56 04/24/16 08:56 04/24/16 08:58 Gen: NAD at rest Heart: RRR Lung: bilateral wheezes, scattered rhonchi, poor air movement Abd: soft, nontender Ext: no edema CBC, BMP 04/20/16 09:55 04/20/16 11:18 Active Medications Albuterol Sulfate (Ventolin 0.083% Nebulizer Soln -) 1 amp NEB TIDR [facility] Last Admin: 04/24/16 06:57 Dose: 1 amp Alprazolam (Xanax -) 0.5 mg PO BID [facility] Last Admin: 04/23/16 21:41 Dose: 0.5 mg Aspirin (Asa -) 325 mg PO DAILY [facility] Last Admin: 04/23/16 11:45 Dose: 325 mg Furosemide (Lasix -) 20 mg PO DAILY [facility] Last Admin: 04/23/16 11:45 Dose: 20 mg Glipizide (Glucotrol -) 5 mg PO DAILY@0700 [facility] Last Admin: 04/24/16 06:34 Dose: 5 mg Guaifenesin (Mucinex -) 600 mg PO BID [facility] Last Admin: 04/23/16 21:40 Dose: 600 mg Azithromycin 250 mg/ Dextrose 250 mls @ 250 mls/hr IVPB DAILY [facility] Last Admin: 04/23/16 11:46 Dose: 250 mls/hr Insulin Aspart (Novolog Vial) 8 units SQ BID@0700,1630 [facility] Last Admin: 04/24/16 06:34 Dose: 8 units Losartan Potassium (Cozaar -) 50 mg PO DAILY [facility] Last Admin: 04/23/16 11:45 Dose: 50 mg Prednisone (Deltasone -) 20 mg PO BID [facility] Last Admin: 04/23/16 21:40 Dose: 20 mg A/P Acute COPD Exacerbation HTN DM LV Diastolic Dysfunction Atelectasis - prednisone taper - inhaled bronchodilators, will change to duonebs - O2 as needed - complete antibiotics - outpt PFTs - DVT prophylaxis
[2016-04-24] MEDS ORDERED: ALBUTEROL SO4 0.083% IH SOL 2.5 MG/3 ML VIAL.NEB. NEB PRN (10:34)
[2016-04-24] MEDS: ASPIRIN 325 MG TABLET PO SCH (10:40)
--- NOTE | 2016-04-24 11:38 | PN ---
Progress Note, Physician Chief Complaint: Pt denies chest pain; +shortness of breath on minimal exertion; c/o chronic lower back pain. History of Present Illness: 79 yo black woman with PMhx of IDDM, HTN, anxiety, chronic lower back pain, here w/ malaise, weakness, headache and cough x several days. Denies body aches , fever, chills, nausea, vomiting, abdominal pain, change in bowel movements, dysuria, chest pain or shortness of breath. - Current Medication List Current Medications: Active Medications Albuterol Sulfate (Ventolin 0.083% Nebulizer Soln -) 1 amp NEB Q4H PRN PRN Reason: SHORT OF BREATH/WHEEZING Albuterol/Ipratropium (Duoneb -) 1 amp NEB QIDR [facility] Alprazolam (Xanax -) 0.5 mg PO BID [facility] Last Admin: 04/24/16 10:18 Dose: 0.5 mg Aspirin (Asa -) 325 mg PO DAILY [facility] Last Admin: 04/23/16 11:45 Dose: 325 mg Furosemide (Lasix -) 20 mg PO DAILY [facility] Last Admin: 04/24/16 10:18 Dose: 20 mg Glipizide (Glucotrol -) 5 mg PO DAILY@0700 [facility] Last Admin: 04/24/16 06:34 Dose: 5 mg Guaifenesin (Mucinex -) 600 mg PO BID [facility] Last Admin: 04/24/16 10:18 Dose: 600 mg Azithromycin 250 mg/ Dextrose 250 mls @ 250 mls/hr IVPB DAILY [facility] Last Admin: 04/24/16 10:18 Dose: 250 mls/hr Insulin Aspart (Novolog Vial) 8 units SQ BID@0700,1630 [facility] Last Admin: 04/24/16 06:34 Dose: 8 units Losartan Potassium (Cozaar -) 50 mg PO DAILY [facility] Last Admin: 04/24/16 10:18 Dose: 50 mg Prednisone (Deltasone -) 20 mg PO BID [facility] Last Admin: 04/24/16 10:18 Dose: 20 mg - Objective Vital Signs: Vital Signs Temperature 97.4 F L 04/24/16 08:56 Pulse Rate 74 04/24/16 08:56 Respiratory Rate 20 04/24/16 08:56 Blood Pressure 137/64 04/24/16 08:56 O2 Sat by Pulse Oximetry (%) 99 04/24/16 08:58 Constitutional: Yes: Calm, Thin Eyes: Yes: WNL HENT: Yes: WNL Neck: Yes: WNL Cardiovascular: Yes: S1, S2 Respiratory: Yes: Diminished Gastrointestinal: Yes: Soft ...Rectal Exam: Yes: Deferred Genitourinary: No: Anuria Breast(s): Yes: WNL Musculoskeletal: Yes: Back Pain, Muscle Weakness Extremities: Yes: Cool Edema: No Peripheral Pulses WNL: Yes Integumentary: Yes: WNL Neurological: Yes: Alert, Oriented, Weakness Psychiatric: Yes: Alert, Oriented - ....Imaging Cat Scan: Image Reviewed (mild IS changes (chronic lung disease); no acute process; no DVT) Ultrasound: Image Reviewed EKG: Report Reviewed (report: sinus tachycardia; ?lateral ischemia) Problem List - Problems (1) Atelectasis of right lung Assessment/Plan: O2, bronchodilators, antibiotics per ID, pulmonary Code(s): J98.11 - ATELECTASIS (2) SOB (shortness of breath) Assessment/Plan: CT chest: chronic lung disease (mild increased interstitial markings); no acute long disease. ECHO: normal LVEF; +diastolic dysfunction; mild-moderate pulmonary valve regurgitation; mild MR.. Stress MIBI (Persantine): no myocardial ischemia. Rec: If aspirin is considered necessary, would lower dose to 81 mg/day, unless 325 mg is for neurologic or other reasons. Code(s): R06.02 - SHORTNESS OF BREATH (3) URI (upper respiratory infection) Assessment/Plan: +Influenza Ag ON antibiotics; f/u c/s. Code(s): J06.9 - ACUTE UPPER RESPIRATORY INFECTION, UNSPECIFIED (4) Weakness Code(s): R53.1 - WEAKNESS (5) Epigastric discomfort Code(s): R10.13 - EPIGASTRIC PAIN (6) Chronic lower back pain Assessment/Plan: s/p ?lower back surgery years ago; on "Tylenol" since; says she brought her own medication from home. She was told not to take any home meds unless cleared by nursing staff (her RN was informed). Code(s): M54.5 - LOW BACK PAIN G89.29 - OTHER CHRONIC PAIN (7) Sinus tachycardia Assessment/Plan: Rapid HR initially; afebrile; no PE by CT. F/u repeat EKG. TFTs. Maintain hydration (ECHO: normal LVEF; abnormal diastolic compliance). Code(s): R00.0 - TACHYCARDIA, UNSPECIFIED (8) Leukocytosis Assessment/Plan: f/u CBC. Code(s): D72.829 - ELEVATED WHITE BLOOD CELL COUNT, UNSPECIFIED (9) COPD (chronic obstructive pulmonary disease) Assessment/Plan: see under "SOB". Code(s): J44.9 - CHRONIC OBSTRUCTIVE PULMONARY DISEASE, UNSPECIFIED
[2016-04-24] MEDS: ALBUTEROL SO4 2.5/IPRATROPIUM 0.5 INH SOL 3 ML VIAL.NEB. NEB SCH ×3 (11:45→23:20)
[2016-04-24 14:41] LABS: THYROID STIMULATING HORMONE 0.05 uIU/ml (0.358-3.74)
[2016-04-24] MEDS: ACETAMINOPHEN WITH CODEINE 300MG/30MG TABLET PO PRN (21:46)
[2016-04-25] MEDS: ALBUTEROL SO4 2.5/IPRATROPIUM 0.5 INH SOL 3 ML VIAL.NEB. NEB SCH ×3 (06:40→17:25)
[2016-04-25] MEDS: glipiZIDE 5 MG TABLET (FP) PO SCH (06:44)
[2016-04-25] MEDS: INSULIN (NOVOLOG) ASPART 100 UNITS/ML 10ML VIAL SQ SCH ×2 (06:44→17:13)
--- NOTE | 2016-04-25 09:04 | DS ---
Physical Examination Vital Signs: Vital Signs Temperature 97.7 F 04/25/16 05:42 Pulse Rate 70 04/25/16 05:42 Respiratory Rate 20 04/25/16 05:42 Blood Pressure 154/73 04/25/16 05:42 O2 Sat by Pulse Oximetry (%) 100 04/24/16 20:10 Findings/Remarks: Admitted with SOB and cough Nuclear stress neg ,EF 65% Treated with IV steroids and IV antibiotics, got better Constitutional: Yes: Anxious Eyes: Yes: WNL HENT: Yes: WNL Neck: Yes: WNL Cardiovascular: Yes: Regular Rate and Rhythm Respiratory: Yes: Regular Gastrointestinal: Yes: WNL Musculoskeletal: Yes: WNL, Muscle Weakness Neurological: Yes: Alert Psychiatric: Yes: WNL Discharge Summary Reason For Visit: SOB,WEAKNESS Current Active Problems Atelectasis of right lung (Acute) COPD (chronic obstructive pulmonary disease) (Acute) Chronic lower back pain (Acute) Leukocytosis (Acute) SOB (shortness of breath) (Acute) Sinus tachycardia (Acute) URI (upper respiratory infection) (Acute) Weakness (Acute) Condition: Fair - Instructions Referrals: Margareth Manzo MD [Primary Care Provider] - - Home Medications Comprehensive Discharge Medication List: Ambulatory Orders Amlodipine Besylate [Norvasc -] 10 mg PO DAILY 03/22/14 Losartan Potassium 100 mg PO DAILY 03/23/14 Acetaminophen W/ Codeine #3 [Tylenol # 3 -] 1 tab PO TID 04/20/16 Brimonidine Tartrate/Timolol [Combigan Eye Drops] 1 drop OU DAILY 04/20/16 Dorzolamide HCl [Trusopt 2%] 1 drop OU BID 04/20/16 Insulin (Novolog 70/30) [Novolog Mix 70/30 Flexpen -] 15 units SQ DAILY Latanoprost 0.005% Eye Drops [Xalatan 0.005% Eye Drops -] 1 drop OU HS 04/20/16
[2016-04-25] MEDS: LOSARTAN POTASSIUM 50 MG TABLET (FP) PO SCH (09:55)
[2016-04-25] MEDS: AZITHROMYCIN IVPB 250 MG in DEXTROSE 5%-WATER - 250 ML IVPB SCH (09:55)
[2016-04-25] MEDS: ALPRAZolam 0.25 MG TABLET PO SCH ×2 (09:55→21:40)
[2016-04-25] MEDS: FUROSEMIDE 20 MG TABLET (FP) PO SCH (09:55)
[2016-04-25] MEDS: ASPIRIN 325 MG TABLET PO SCH (09:55)
[2016-04-25] MEDS: guaiFENesin 600 MG TABLET.ER (FP) PO SCH ×2 (09:56→21:39)
[2016-04-25] MEDS: predniSONE 20 MG TABLET (UD) PO SCH (09:56)
--- NOTE | 2016-04-25 11:27 | PN ---
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
--- NOTE | 2016-04-25 13:17 | PN ---
Progress Note, Physician History of Present Illness: 79 yo F, hx of IDDM, HTN, anxiety, chronic lower back pain, here w/ malaise, weakness, headache and cough x several days. Denies body aches, fever, chills, nausea, vomiting, abdominal pain, change in bowel movements, dysuria, chest pain or shortness of breath. - Current Medication List Current Medications: Active Medications Acetaminophen/Codeine Phosphate (Tylenol # 3 -) 1 tab PO Q8H PRN PRN Reason: PAIN Last Admin: 04/24/16 21:46 Dose: 1 tab Albuterol Sulfate (Ventolin 0.083% Nebulizer Soln -) 1 amp NEB Q4H PRN PRN Reason: SHORT OF BREATH/WHEEZING Albuterol/Ipratropium (Duoneb -) 1 amp NEB QIDR [facility] Last Admin: 04/25/16 11:40 Dose: 1 amp Alprazolam (Xanax -) 0.5 mg PO BID [facility] Last Admin: 04/25/16 09:55 Dose: 0.5 mg Aspirin (Asa -) 325 mg PO DAILY [facility] Last Admin: 04/25/16 09:55 Dose: 325 mg Furosemide (Lasix -) 20 mg PO DAILY [facility] Last Admin: 04/25/16 09:55 Dose: 20 mg Glipizide (Glucotrol -) 5 mg PO DAILY@0700 [facility] Last Admin: 04/25/16 06:44 Dose: 5 mg Guaifenesin (Mucinex -) 600 mg PO BID [facility] Last Admin: 04/25/16 09:56 Dose: 600 mg Azithromycin 250 mg/ Dextrose 250 mls @ 250 mls/hr IVPB DAILY [facility] Last Admin: 04/25/16 09:55 Dose: 250 mls/hr Insulin Aspart (Novolog Vial) 8 units SQ BID@0700,1630 [facility] Last Admin: 04/25/16 06:44 Dose: 8 units Losartan Potassium (Cozaar -) 50 mg PO DAILY [facility] Last Admin: 04/25/16 09:55 Dose: 50 mg Methylprednisolone Sodium Succinate (Solu-Medrol -) 40 mg IVPB Q8H-IV [facility] - Objective Vital Signs: Vital Signs Temperature 97.7 F 04/25/16 05:42 Pulse Rate 71 04/25/16 11:40 Respiratory Rate 20 04/25/16 05:42 Blood Pressure 154/73 02/08/17 05:42 O2 Sat by Pulse Oximetry (%) 97 04/25/16 11:40 Eyes: Yes: WNL, Conjunctiva Clear, EOM Intact HENT: Yes: WNL, Atraumatic, Normocephalic Neck: Yes: WNL, Supple, Trachea Midline Cardiovascular: Yes: WNL, Regular Rate and Rhythm Respiratory: Yes: WNL, Regular, CTA Bilaterally Gastrointestinal: Yes: WNL, Normal Bowel Sounds Genitourinary: Yes: WNL Musculoskeletal: Yes: WNL Extremities: Yes: WNL Edema: No Integumentary: Yes: WNL Neurological: Yes: WNL, Alert, Oriented ...Motor Strength: WNL Psychiatric: Yes: WNL Problem List - Problems (1) SOB (shortness of breath) Code(s): R06.02 - SHORTNESS OF BREATH (2) Weakness Code(s): R53.1 - WEAKNESS (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 ECHO: normal LVEF; +diastolic dysfunction; mild-moderate pulmonary valve regurgitation; mild MR.. Stress MIBI (Persantine): no myocardial ischemia. Rec: If aspirin is considered necessary, would lower dose to 81 mg/day, unless 325 mg is for neurologic or other reasons. Code(s): R06.02 - SHORTNESS OF BREATH (3) URI (upper respiratory infection) Assessment/Plan: +Influenza Ag ON antibiotics; f/u c/s. Code(s): J06.9 - ACUTE UPPER RESPIRATORY INFECTION, UNSPECIFIED (4) Weakness Code(s): R53.1 - WEAKNESS (5) Epigastric discomfort Code(s): R10.13 - EPIGASTRIC PAIN (6) Chronic lower back pain Assessment/Plan: s/p ?lower back surgery years ago; on "Tylenol" since; says she brought her own medication from home. She was told not to take any home meds unless cleared by nursing staff (her RN was informed). Code(s): M54.5 - LOW BACK PAIN G89.29 - OTHER CHRONIC PAIN (7) Sinus tachycardia Assessment/Plan: Rapid HR initially; afebrile; no PE by CT. F/u repeat EKG. TFTs. Maintain hydration (ECHO: normal LVEF; abnormal diastolic compliance). Code(s): R00.0 - TACHYCARDIA, UNSPECIFIED (8) Leukocytosis Assessment/Plan: f/u CBC. Code(s): D72.829 - ELEVATED WHITE BLOOD CELL COUNT, UNSPECIFIED (9) COPD (chronic obstructive pulmonary disease) Assessment/Plan: see under "SOB". Code(s): J44.9 - CHRONIC OBSTRUCTIVE PULMONARY DISEASE, UNSPECIFIED
[2016-04-25] MEDS: methylPREDNISolone NA SUCC 40 MG/1 ML VIAL IVPB SCH ×2 (13:31→18:45)
--- NOTE | 2016-04-25 13:53 | EKG ---
Test Reason : Blood Pressure : / mmHG Vent. Rate : 083 BPM Atrial Rate : 083 BPM P-R Int : 138 ms QRS Dur : 072 ms QT Int : 342 ms P-R-T Axes : 065 036 102 degrees QTc Int : 401 ms POOR DATA QUALITY, INTERPRETATION MAY BE ADVERSELY AFFECTED SINUS RHYTHM WITH FREQUENT and consecutive PREMATURE VENTRICULAR COMPLEXES NONSPECIFIC T WAVE ABNORMALITY ABNORMAL ECG WHEN COMPARED WITH ECG OF 20-APR-2016 09:59, PREMATURE VENTRICULAR COMPLEXES ARE NOW PRESENT NONSPECIFIC T WAVE ABNORMALITY HAS REPLACED INVERTED T WAVES IN LATERAL LEADS Confirmed by CLEMENTE MUSE, ITZEL ([id number]) on 04/25/2016 1:52:44 PM Referred By: Arin MALLOY Confirmed By:ITZEL CORNEJO MD
--- NOTE | 2016-04-25 14:00 | EKG ---
Test Reason : Blood Pressure : / mmHG Vent. Rate : 118 BPM Atrial Rate : 118 BPM P-R Int : 158 ms QRS Dur : 066 ms QT Int : 306 ms P-R-T Axes : 064 068 108 degrees QTc Int : 428 ms POOR DATA QUALITY, INTERPRETATION MAY BE ADVERSELY AFFECTED SINUS TACHYCARDIA ABNORMAL ECG WHEN COMPARED WITH ECG OF 22-MAR-2014 23:37, NO SIGNIFICANT CHANGE WAS FOUND Confirmed by CLEMENTE MUSE, ITZEL ([id number]) on 04/25/2016 1:59:30 PM Referred By: Confirmed By:ITZEL CORNEOJ MD
[2016-04-25] MEDS: ACETAMINOPHEN WITH CODEINE 300MG/30MG TABLET PO PRN (18:43)
[2016-04-26] MEDS: ALBUTEROL SO4 2.5/IPRATROPIUM 0.5 INH SOL 3 ML VIAL.NEB. NEB SCH ×5 (00:04→23:03)
[2016-04-26] MEDS: methylPREDNISolone NA SUCC 40 MG/1 ML VIAL IVPB SCH ×3 (01:48→17:44)
[2016-04-26] MEDS: glipiZIDE 5 MG TABLET (FP) PO SCH (06:31)
[2016-04-26] MEDS: INSULIN (NOVOLOG) ASPART 100 UNITS/ML 10ML VIAL SQ SCH ×2 (06:31→17:43)
[2016-04-26] MEDS: ALPRAZolam 0.25 MG TABLET PO SCH ×2 (10:33→21:54)
[2016-04-26] MEDS: guaiFENesin 600 MG TABLET.ER (FP) PO SCH ×2 (10:33→21:54)
[2016-04-26] MEDS: ASPIRIN 325 MG TABLET PO SCH (10:33)
[2016-04-26] MEDS: LOSARTAN POTASSIUM 50 MG TABLET (FP) PO SCH (10:34)
[2016-04-26] MEDS: FUROSEMIDE 20 MG TABLET (FP) PO SCH (10:34)
[2016-04-26] MEDS: AZITHROMYCIN IVPB 250 MG in DEXTROSE 5%-WATER - 250 ML IVPB SCH (10:42)
--- NOTE | 2016-04-26 12:23 | PN ---
Progress Note (short form) - Note Progress Note: PULMONARY APPEARS WEAK AND SOB CONGESTED NONPRODUCTIVE COUGH VSS/AFEBRILE ANICTERIC RHONCHI/EXP WHEEZE S1S2 BS+ SOFT NONTENDER NO EDEMA LABS/MEDS/NOTES/IMAGING/MICRO REVIEWED A/P Acute COPD Exacerbation HTN DM LV Diastolic Dysfunction Atelectasis CONTINUE BRONCHODILATORS W CHEST PT O2/ANTIBIOTICS/DVT PROPHYLAXSIS/STEROIDS WILL NEED PT/OUT PATIENT PFT'S HAVE DISCUSSED W PMD Cricket CARROLL MD
[2016-04-27] MEDS: methylPREDNISolone NA SUCC 40 MG/1 ML VIAL IVPB SCH (01:17)
[2016-04-27] MEDS: ALBUTEROL SO4 2.5/IPRATROPIUM 0.5 INH SOL 3 ML VIAL.NEB. NEB SCH ×3 (06:01→18:06)
[2016-04-27] MEDS: glipiZIDE 5 MG TABLET (FP) PO SCH (06:02)
[2016-04-27] MEDS: INSULIN (NOVOLOG) ASPART 100 UNITS/ML 10ML VIAL SQ SCH ×2 (06:02→17:46)
--- NOTE | 2016-04-27 08:37 | PN ---
Progress Note, Physician Chief Complaint: Feels better History of Present Illness: Admitted with exacerbation of COPD On IV steroids and antibiotics - Current Medication List Current Medications: Active Medications Acetaminophen/Codeine Phosphate (Tylenol # 3 -) 1 tab PO Q8H PRN PRN Reason: PAIN Last Admin: 04/25/16 18:43 Dose: 1 tab Albuterol Sulfate (Ventolin 0.083% Nebulizer Soln -) 1 amp NEB Q4H PRN PRN Reason: SHORT OF BREATH/WHEEZING Albuterol/Ipratropium (Duoneb -) 1 amp NEB QIDR [facility] Last Admin: 04/27/16 06:01 Dose: 1 amp Alprazolam (Xanax -) 0.5 mg PO BID [facility] Last Admin: 04/26/16 21:54 Dose: 0.5 mg Aspirin (Asa -) 325 mg PO DAILY [facility] Last Admin: 04/26/16 10:33 Dose: 325 mg Furosemide (Lasix -) 20 mg PO DAILY [facility] Last Admin: 04/26/16 10:34 Dose: 20 mg Glipizide (Glucotrol -) 5 mg PO DAILY@0700 [facility] Last Admin: 04/27/16 06:02 Dose: 5 mg Guaifenesin (Mucinex -) 600 mg PO BID [facility] Last Admin: 04/26/16 21:54 Dose: 600 mg Azithromycin 250 mg/ Dextrose 250 mls @ 250 mls/hr IVPB DAILY [facility] Last Admin: 04/26/16 10:42 Dose: 250 mls/hr Insulin Aspart (Novolog Vial) 8 units SQ BID@0700,1630 [facility] Last Admin: 04/27/16 06:02 Dose: 8 units Losartan Potassium (Cozaar -) 50 mg PO DAILY [facility] Last Admin: 04/26/16 10:34 Dose: 50 mg Methylprednisolone Sodium Succinate (Solu-Medrol -) 40 mg IVPB Q8H-IV [facility] Last Admin: 04/27/16 01:17 Dose: 40 mg - Objective Vital Signs: Vital Signs Temperature 97.9 F 04/27/16 06:00 Pulse Rate 87 04/27/16 06:00 Respiratory Rate 18 04/27/16 06:00 Blood Pressure 161/78 04/27/16 06:00 O2 Sat by Pulse Oximetry (%) 100 04/26/16 20:08 Constitutional: Yes: No Distress Eyes: Yes: WNL HENT: Yes: WNL Neck: Yes: WNL Cardiovascular: Yes: WNL Respiratory: Yes: On Nasal O2 Gastrointestinal: Yes: WNL ...Rectal Exam: Yes: Deferred Genitourinary: Yes: WNL Musculoskeletal: Yes: Muscle Weakness Extremities: Yes: WNL Peripheral Pulses WNL: Yes Neurological: Yes: Alert ...Motor Strength: WNL Assessment/Plan Continue same trt
[2016-04-27] MEDS: ALPRAZolam 0.25 MG TABLET PO SCH ×2 (10:16→21:15)
[2016-04-27] MEDS: LOSARTAN POTASSIUM 50 MG TABLET (FP) PO SCH (10:16)
[2016-04-27] MEDS: ASPIRIN 325 MG TABLET PO SCH (10:16)
[2016-04-27] MEDS: guaiFENesin 600 MG TABLET.ER (FP) PO SCH ×2 (10:16→21:14)
[2016-04-27] MEDS: FUROSEMIDE 20 MG TABLET (FP) PO SCH (10:16)
[2016-04-27] MEDS: AZITHROMYCIN IVPB 250 MG in DEXTROSE 5%-WATER - 250 ML IVPB SCH (10:16)
--- NOTE | 2016-04-27 15:33 | PN ---
Progress Note, Physician History of Present Illness: PULMONARY ALERT,OOB-CHAIR DYSPNEIC,+COUGH - Current Medication List Current Medications: Active Medications Acetaminophen/Codeine Phosphate (Tylenol # 3 -) 1 tab PO Q8H PRN PRN Reason: PAIN Last Admin: 04/25/16 18:43 Dose: 1 tab Albuterol Sulfate (Ventolin 0.083% Nebulizer Soln -) 1 amp NEB Q4H PRN PRN Reason: SHORT OF BREATH/WHEEZING Albuterol/Ipratropium (Duoneb -) 1 amp NEB QIDR [facility] Last Admin: 04/27/16 11:30 Dose: 1 amp Alprazolam (Xanax -) 0.5 mg PO BID [facility] Last Admin: 04/27/16 10:16 Dose: 0.5 mg Aspirin (Asa -) 325 mg PO DAILY [facility] Last Admin: 04/27/16 10:16 Dose: 325 mg Furosemide (Lasix -) 20 mg PO DAILY [facility] Last Admin: 04/27/16 10:16 Dose: 20 mg Glipizide (Glucotrol -) 5 mg PO DAILY@0700 [facility] Last Admin: 04/27/16 06:02 Dose: 5 mg Guaifenesin (Mucinex -) 600 mg PO BID [facility] Last Admin: 04/27/16 10:16 Dose: 600 mg Azithromycin 250 mg/ Dextrose 250 mls @ 250 mls/hr IVPB DAILY [facility] Last Admin: 04/27/16 10:16 Dose: 250 mls/hr Insulin Aspart (Novolog Vial) 8 units SQ BID@0700,1630 [facility] Last Admin: 04/27/16 06:02 Dose: 8 units Losartan Potassium (Cozaar -) 50 mg PO DAILY [facility] Last Admin: 04/27/16 10:16 Dose: 50 mg - Objective Vital Signs: Vital Signs Temperature 98.8 F 04/27/16 14:35 Pulse Rate 89 04/27/16 14:35 Respiratory Rate 20 04/27/16 14:35 Blood Pressure 134/61 04/27/16 14:35 O2 Sat by Pulse Oximetry (%) 92 L 04/27/16 11:30 Constitutional: Yes: Well Nourished, Calm Eyes: Yes: WNL HENT: Yes: WNL Neck: Yes: WNL Cardiovascular: Yes: Regular Rate and Rhythm, S1, S2 Respiratory: Yes: Rales (BIBASILAR CRACKLES L>R), Rhonchi (SCATTERED RHONCHI) Gastrointestinal: Yes: Normal Bowel Sounds, Soft Extremities: Yes: WNL Edema: No Assessment/Plan A/P Acute COPD Exacerbation HTN DM LV Diastolic Dysfunction Atelectasis - inhaled bronchodilators, will change to duonebs - O2 as needed - complete antibiotics - outpt PFTs - DVT prophylaxis - chest x-ray DR DEVRIES
--- NOTE | 2016-04-27 17:12 | PN ---
Progress Note, Physician Chief Complaint: Pt alert; ambulated slowly in the gan with assistance. History of Present Illness: 79 yo black woman with PMhx of IDDM, HTN, anxiety, chronic lower back pain, here w/ malaise, weakness, headache and cough x several days. Denies body aches , fever, chills, nausea, vomiting, abdominal pain, change in bowel movements, dysuria, chest pain or shortness of breath. - Current Medication List Current Medications: Active Medications Acetaminophen/Codeine Phosphate (Tylenol # 3 -) 1 tab PO Q8H PRN PRN Reason: PAIN Last Admin: 04/25/16 18:43 Dose: 1 tab Albuterol Sulfate (Ventolin 0.083% Nebulizer Soln -) 1 amp NEB Q4H PRN PRN Reason: SHORT OF BREATH/WHEEZING Albuterol/Ipratropium (Duoneb -) 1 amp NEB QIDR [facility] Last Admin: 04/27/16 11:30 Dose: 1 amp Alprazolam (Xanax -) 0.5 mg PO BID [facility] Last Admin: 04/27/16 10:16 Dose: 0.5 mg Aspirin (Asa -) 325 mg PO DAILY [facility] Last Admin: 04/27/16 10:16 Dose: 325 mg Furosemide (Lasix -) 20 mg PO DAILY [facility] Last Admin: 04/27/16 10:16 Dose: 20 mg Glipizide (Glucotrol -) 5 mg PO DAILY@0700 [facility] Last Admin: 04/27/16 06:02 Dose: 5 mg Guaifenesin (Mucinex -) 600 mg PO BID [facility] Last Admin: 04/27/16 10:16 Dose: 600 mg Azithromycin 250 mg/ Dextrose 250 mls @ 250 mls/hr IVPB DAILY [facility] Last Admin: 04/27/16 10:16 Dose: 250 mls/hr Insulin Aspart (Novolog Vial) 8 units SQ BID@0700,1630 [facility] Last Admin: 04/27/16 06:02 Dose: 8 units Losartan Potassium (Cozaar -) 50 mg PO DAILY [facility] Last Admin: 04/27/16 10:16 Dose: 50 mg Ranitidine HCl (Zantac -) 150 mg PO BID [facility] - Objective Vital Signs: Vital Signs Temperature 98.8 F 04/27/16 14:35 Pulse Rate 89 04/27/16 14:35 Respiratory Rate 20 04/27/16 14:35 Blood Pressure 134/61 04/27/16 14:35 O2 Sat by Pulse Oximetry (%) 92 L 04/27/16 11:30 Constitutional: Yes: Calm Eyes: Yes: WNL HENT: Yes: WNL Neck: Yes: WNL Cardiovascular: Yes: Regular Rate and Rhythm Respiratory: Yes: Diminished Gastrointestinal: Yes: Soft ...Rectal Exam: Yes: Deferred Genitourinary: No: Anuria Breast(s): Yes: WNL Musculoskeletal: Yes: Muscle Weakness Extremities: Yes: Cool Edema: No Peripheral Pulses WNL: No Peripheral Pulses: Left Doralis Pedis: 1+, Right Dorsalis Pedis: 1+ Integumentary: Yes: WNL Neurological: Yes: Alert, Oriented, Weakness Psychiatric: Yes: Other (anxiety) Problem List - Problems (1) Atelectasis of right lung Assessment/Plan: O2, bronchodilators, antibiotics per ID, pulmonary Code(s): J98.11 - ATELECTASIS (2) SOB (shortness of breath) Assessment/Plan: CT chest: chronic lung disease (mild increased interstitial markings); no acute long disease. ECHO: normal LVEF; +diastolic dysfunction; mild-moderate pulmonary valve regurgitation; mild MR.. Stress MIBI (Persantine): no myocardial ischemia. Rec: If aspirin is considered necessary, would lower dose to 81 mg/day, unless 325 mg is for neurologic or other reasons. Code(s): R06.02 - SHORTNESS OF BREATH (3) URI (upper respiratory infection) Assessment/Plan: +Influenza Ag ON antibiotics; f/u c/s. Code(s): J06.9 - ACUTE UPPER RESPIRATORY INFECTION, UNSPECIFIED (4) Weakness Code(s): R53.1 - WEAKNESS (5) Epigastric discomfort Code(s): R10.13 - EPIGASTRIC PAIN (6) Chronic lower back pain Assessment/Plan: s/p ?lower back surgery years ago; on "Tylenol" since; says she brought her own medication from home. She was told not to take any home meds unless cleared by nursing staff (her RN was informed). Code(s): M54.5 - LOW BACK PAIN G89.29 - OTHER CHRONIC PAIN (7) Sinus tachycardia Assessment/Plan: Rapid HR initially; afebrile; no PE by CT. F/u repeat EKG. TFTs (TSH low; f/u free T4). Maintain hydration (ECHO: normal LVEF; abnormal diastolic compliance). Code(s): R00.0 - TACHYCARDIA, UNSPECIFIED (8) Leukocytosis Assessment/Plan: f/u CBC. Code(s): D72.829 - ELEVATED WHITE BLOOD CELL COUNT, UNSPECIFIED (9) COPD (chronic obstructive pulmonary disease) Assessment/Plan: see under "SOB". Code(s): J44.9 - CHRONIC OBSTRUCTIVE PULMONARY DISEASE, UNSPECIFIED
--- NOTE | 2016-04-27 17:16 | PN ---
Progress Note, Physician Chief Complaint: Pt alert; feels nauseous. History of Present Illness: 79 yo black woman with PMhx of IDDM, HTN, anxiety, chronic lower back pain, here w/ malaise, weakness, headache and cough x several days. Denies body aches , fever, chills, nausea, vomiting, abdominal pain, change in bowel movements, dysuria, chest pain or shortness of breath. - Current Medication List Current Medications: Active Medications Acetaminophen/Codeine Phosphate (Tylenol # 3 -) 1 tab PO Q8H PRN PRN Reason: PAIN Last Admin: 04/25/16 18:43 Dose: 1 tab Albuterol Sulfate (Ventolin 0.083% Nebulizer Soln -) 1 amp NEB Q4H PRN PRN Reason: SHORT OF BREATH/WHEEZING Albuterol/Ipratropium (Duoneb -) 1 amp NEB QIDR [facility] Last Admin: 04/27/16 11:30 Dose: 1 amp Alprazolam (Xanax -) 0.5 mg PO BID [facility] Last Admin: 04/27/16 10:16 Dose: 0.5 mg Aspirin (Asa -) 325 mg PO DAILY [facility] Last Admin: 04/27/16 10:16 Dose: 325 mg Furosemide (Lasix -) 20 mg PO DAILY [facility] Last Admin: 04/27/16 10:16 Dose: 20 mg Glipizide (Glucotrol -) 5 mg PO DAILY@0700 [facility] Last Admin: 04/27/16 06:02 Dose: 5 mg Guaifenesin (Mucinex -) 600 mg PO BID [facility] Last Admin: 04/27/16 10:16 Dose: 600 mg Azithromycin 250 mg/ Dextrose 250 mls @ 250 mls/hr IVPB DAILY [facility] Last Admin: 04/27/16 10:16 Dose: 250 mls/hr Insulin Aspart (Novolog Vial) 8 units SQ BID@0700,1630 [facility] Last Admin: 04/27/16 06:02 Dose: 8 units Losartan Potassium (Cozaar -) 50 mg PO DAILY [facility] Last Admin: 04/27/16 10:16 Dose: 50 mg Ranitidine HCl (Zantac -) 150 mg PO BID [facility] - Objective Vital Signs: Vital Signs Temperature 98.8 F 04/27/16 14:35 Pulse Rate 89 04/27/16 14:35 Respiratory Rate 20 04/27/16 14:35 Blood Pressure 134/61 04/27/16 14:35 O2 Sat by Pulse Oximetry (%) 92 L 04/27/16 11:30 Constitutional: Yes: Anxious Eyes: Yes: WNL HENT: Yes: WNL Neck: Yes: Supple Cardiovascular: Yes: Regular Rate and Rhythm, S1, S2 Respiratory: Yes: Regular Gastrointestinal: Yes: Soft, Hyperactive Bowel Sounds ...Rectal Exam: Yes: Deferred Genitourinary: No: Anuria Breast(s): Yes: WNL Musculoskeletal: Yes: Muscle Weakness Extremities: Yes: Cool Edema: No Peripheral Pulses WNL: Yes Integumentary: Yes: WNL Neurological: Yes: Alert, Oriented, Weakness Psychiatric: Yes: Alert, Oriented - ....Imaging Chest X-ray: Image Reviewed (no acute pathology) Problem List - Problems (1) Atelectasis of right lung Assessment/Plan: O2, bronchodilators, antibiotics per ID, pulmonary Code(s): J98.11 - ATELECTASIS (2) SOB (shortness of breath) Assessment/Plan: CT chest: chronic lung disease (mild increased interstitial markings); no acute long disease. ECHO: normal LVEF; +diastolic dysfunction; mild-moderate pulmonary valve regurgitation; mild MR.. Stress MIBI (Persantine): no myocardial ischemia. Rec: If aspirin is considered necessary, would lower dose to 81 mg/day, unless 325 mg is for neurologic or other reasons. Nausea: for ranitidine; f/u clinically. Code(s): R06.02 - SHORTNESS OF BREATH (3) URI (upper respiratory infection) Assessment/Plan: +Influenza Ag ON antibiotics; f/u c/s. Code(s): J06.9 - ACUTE UPPER RESPIRATORY INFECTION, UNSPECIFIED (4) Weakness Code(s): R53.1 - WEAKNESS (5) Epigastric discomfort Code(s): R10.13 - EPIGASTRIC PAIN (6) Chronic lower back pain Assessment/Plan: s/p ?lower back surgery years ago; on "Tylenol" since; says she brought her own medication from home. She was told not to take any home meds unless cleared by nursing staff (her RN was informed). Code(s): M54.5 - LOW BACK PAIN G89.29 - OTHER CHRONIC PAIN (7) Sinus tachycardia Assessment/Plan: Rapid HR initially; afebrile; no PE by CT. Repeat EKG: resolved. Maintain hydration (ECHO: normal LVEF; abnormal diastolic compliance). Mildly elevated free T4; f/u w/u. Code(s): R00.0 - TACHYCARDIA, UNSPECIFIED (8) Leukocytosis Assessment/Plan: f/u CBC. Code(s): D72.829 - ELEVATED WHITE BLOOD CELL COUNT, UNSPECIFIED (9) COPD (chronic obstructive pulmonary disease) Assessment/Plan: see under "SOB". Code(s): J44.9 - CHRONIC OBSTRUCTIVE PULMONARY DISEASE, UNSPECIFIED
[2016-04-27] MEDS ORDERED: RANITIDINE HCL 150 MG TABLET (FP) PO ONE (17:45)
[2016-04-27] MEDS: RANITIDINE HCL 150 MG TABLET (FP) PO SCH (17:46)
[2016-04-27] MEDS ORDERED: AZITHROMYCIN 250 MG TABLET (FP) PO ONE ×2 (19:15→21:45)
[2016-04-27] MEDS: NYSTATIN 500,000 UNITS/5 ML SUSPENSION PO SCH (21:15)
[2016-04-27] MEDS ORDERED: RANITIDINE HCL 150 MG TABLET (FP) PO SCH (22:00)
[2016-04-28] MEDS: ALBUTEROL SO4 2.5/IPRATROPIUM 0.5 INH SOL 3 ML VIAL.NEB. NEB SCH ×5 (00:14→23:15)
[2016-04-28] MEDS: NYSTATIN 500,000 UNITS/5 ML SUSPENSION PO SCH ×3 (06:27→22:45)
[2016-04-28] MEDS: INSULIN (NOVOLOG) ASPART 100 UNITS/ML 10ML VIAL SQ SCH ×2 (06:29→17:27)
[2016-04-28] MEDS: glipiZIDE 5 MG TABLET (FP) PO SCH (06:29)
[2016-04-28] MEDS: ALPRAZolam 0.25 MG TABLET PO SCH ×2 (09:58→22:44)
[2016-04-28] MEDS: guaiFENesin 600 MG TABLET.ER (FP) PO SCH ×2 (09:59→22:45)
[2016-04-28] MEDS: ASPIRIN 325 MG TABLET PO SCH (09:59)
[2016-04-28] MEDS: LOSARTAN POTASSIUM 50 MG TABLET (FP) PO SCH (09:59)
[2016-04-28] MEDS: FUROSEMIDE 20 MG TABLET (FP) PO SCH (09:59)
[2016-04-28] MEDS: RANITIDINE HCL 150 MG TABLET (FP) PO SCH ×2 (10:00→22:45)
[2016-04-28] MEDS ORDERED: AZITHROMYCIN 250 MG TABLET (FP) PO ONE (10:00)
--- NOTE | 2016-04-28 11:28 | PN ---
Progress Note, Physician History of Present Illness: Still c/o SOB - Current Medication List Current Medications: Active Medications Al Hydroxide/Mg Hydroxide (Mylanta Oral Suspension -) 30 ml PO BID PRN PRN Reason: INDIGESTION Albuterol Sulfate (Ventolin 0.083% Nebulizer Soln -) 1 amp NEB Q4H PRN PRN Reason: SHORT OF BREATH/WHEEZING Albuterol/Ipratropium (Duoneb -) 1 amp NEB QIDR [facility] Last Admin: 04/28/16 07:06 Dose: 1 amp Alprazolam (Xanax -) 0.5 mg PO BID [facility] Last Admin: 04/28/16 09:58 Dose: 0.5 mg Aspirin (Asa -) 325 mg PO DAILY [facility] Last Admin: 04/28/16 09:59 Dose: 325 mg Furosemide (Lasix -) 20 mg PO DAILY [facility] Last Admin: 04/28/16 09:59 Dose: 20 mg Glipizide (Glucotrol -) 5 mg PO DAILY@0700 [facility] Last Admin: 04/28/16 06:29 Dose: 5 mg Guaifenesin (Mucinex -) 600 mg PO BID [facility] Last Admin: 04/28/16 09:59 Dose: 600 mg Insulin Aspart (Novolog Vial) 8 units SQ BID@0700,1630 [facility] Last Admin: 04/28/16 06:29 Dose: 8 units Losartan Potassium (Cozaar -) 50 mg PO DAILY [facility] Last Admin: 04/28/16 09:59 Dose: 50 mg Nystatin (Nystatin Oral Suspension -) 500,000 units PO TID [facility] Last Admin: 04/28/16 06:27 Dose: 500,000 units Prednisone (Deltasone -) 20 mg PO BID [facility] Ranitidine HCl (Zantac -) 150 mg PO BID [facility] Last Admin: 04/28/16 10:00 Dose: 150 mg - Objective Vital Signs: Vital Signs Temperature 98 F 04/28/16 05:40 Pulse Rate 121 H 04/28/16 05:40 Respiratory Rate 22 04/28/16 05:40 Blood Pressure 161/85 04/28/16 05:40 O2 Sat by Pulse Oximetry (%) 96 04/27/16 20:51 Constitutional: Yes: Anxious Eyes: Yes: WNL HENT: Yes: WNL Neck: Yes: WNL Cardiovascular: Yes: WNL Respiratory: Yes: On Nasal O2 Assessment/Plan Continue PO prenisone
[2016-04-28] MEDS ORDERED: predniSONE 20 MG TABLET (UD) PO ONE (12:15)
--- NOTE | 2016-04-28 13:24 | PN ---
Progress Note, Physician History of Present Illness: pulmonary alert,weak,mild congestion - Current Medication List Current Medications: Active Medications Al Hydroxide/Mg Hydroxide (Mylanta Oral Suspension -) 30 ml PO BID PRN PRN Reason: INDIGESTION Albuterol Sulfate (Ventolin 0.083% Nebulizer Soln -) 1 amp NEB Q4H PRN PRN Reason: SHORT OF BREATH/WHEEZING Albuterol/Ipratropium (Duoneb -) 1 amp NEB QIDR [facility] Last Admin: 04/28/16 11:27 Dose: 1 amp Alprazolam (Xanax -) 0.5 mg PO BID [facility] Last Admin: 04/28/16 09:58 Dose: 0.5 mg Aspirin (Asa -) 325 mg PO DAILY [facility] Last Admin: 04/28/16 09:59 Dose: 325 mg Furosemide (Lasix -) 20 mg PO DAILY [facility] Last Admin: 04/28/16 09:59 Dose: 20 mg Glipizide (Glucotrol -) 5 mg PO DAILY@0700 [facility] Last Admin: 04/28/16 06:29 Dose: 5 mg Guaifenesin (Mucinex -) 600 mg PO BID [facility] Last Admin: 04/28/16 09:59 Dose: 600 mg Insulin Aspart (Novolog Vial) 8 units SQ BID@0700,1630 [facility] Last Admin: 04/28/16 06:29 Dose: 8 units Losartan Potassium (Cozaar -) 50 mg PO DAILY [facility] Last Admin: 04/28/16 09:59 Dose: 50 mg Nystatin (Nystatin Oral Suspension -) 500,000 units PO TID [facility] Last Admin: 04/28/16 06:27 Dose: 500,000 units Prednisone (Deltasone -) 20 mg PO BID [facility] Ranitidine HCl (Zantac -) 150 mg PO BID [facility] Last Admin: 04/28/16 10:00 Dose: 150 mg - Objective Vital Signs: Vital Signs Temperature 99.1 F 04/28/16 10:00 Pulse Rate 62 04/28/16 11:00 Respiratory Rate 24 04/28/16 10:00 Blood Pressure 122/71 04/28/16 10:00 O2 Sat by Pulse Oximetry (%) 92 L 04/28/16 11:00 Constitutional: Yes: Calm, Thin Eyes: Yes: WNL HENT: Yes: WNL Neck: Yes: WNL Cardiovascular: Yes: Regular Rate and Rhythm, S1, S2 Respiratory: Yes: Rales (bilateral rales 1/3 up with few scattered nilda rhonchi) Gastrointestinal: Yes: Normal Bowel Sounds, Soft Extremities: Yes: WNL Edema: No Assessment/Plan A/P Acute COPD Exacerbation HTN DM LV Diastolic Dysfunction Atelectasis - duonebs - O2 as needed - outpt PFTs - DVT prophylaxis DR DEVRIES
[2016-04-28] MEDS: ONDANSETRON *ODT* 4 MG TABLET SL PRN (17:23)
[2016-04-28] MEDS: MAG HYDROX/AL HYDROX/SIMETH 30 ML UNIT-DOSE CUP PO PRN (19:55)
[2016-04-28] MEDS: predniSONE 20 MG TABLET (UD) PO SCH (22:45)
[2016-04-28] MEDS: INSULIN SLIDING SCALE (NOVOLOG) 1 VIAL SQ SCH (22:45)
[2016-04-29] MEDS: NYSTATIN 500,000 UNITS/5 ML SUSPENSION PO SCH ×3 (06:27→22:56)
[2016-04-29] MEDS: glipiZIDE 5 MG TABLET (FP) PO SCH (06:27)
[2016-04-29] MEDS: INSULIN SLIDING SCALE (NOVOLOG) 1 VIAL SQ SCH ×4 (06:30→22:31)
[2016-04-29] MEDS: ONDANSETRON *ODT* 4 MG TABLET SL PRN (06:35)
[2016-04-29] MEDS: ALBUTEROL SO4 2.5/IPRATROPIUM 0.5 INH SOL 3 ML VIAL.NEB. NEB SCH ×3 (06:52→18:07)
[2016-04-29] MEDS ORDERED: INSULIN (NOVOLOG) ASPART 100 UNITS/ML 10ML VIAL ONE ×3 (07:02→21:40)
[2016-04-29] MEDS: guaiFENesin 600 MG TABLET.ER (FP) PO SCH ×2 (10:14→22:31)
[2016-04-29] MEDS: ASPIRIN 325 MG TABLET PO SCH (10:14)
[2016-04-29] MEDS: predniSONE 20 MG TABLET (UD) PO SCH ×2 (10:14→22:30)
[2016-04-29] MEDS: MAG HYDROX/AL HYDROX/SIMETH 30 ML UNIT-DOSE CUP PO PRN (10:14)
[2016-04-29] MEDS: LOSARTAN POTASSIUM 50 MG TABLET (FP) PO SCH (10:14)
[2016-04-29] MEDS: ALPRAZolam 0.25 MG TABLET PO SCH ×2 (10:14→22:30)
[2016-04-29] MEDS: RANITIDINE HCL 150 MG TABLET (FP) PO SCH ×2 (10:14→22:30)
[2016-04-29] MEDS: FUROSEMIDE 20 MG TABLET (FP) PO SCH (10:14)
[2016-04-29] MEDS: ACETAMINOPHEN WITH CODEINE 300MG/30MG TABLET PO PRN (11:04)
--- NOTE | 2016-04-29 13:41 | PN ---
Progress Note, Physician History of Present Illness: PULMONARY NO CHANGE,WEAK,+OCC COUGH - Current Medication List Current Medications: Active Medications Acetaminophen/Codeine Phosphate (Tylenol # 3 -) 1 tab PO Q8H PRN Last Admin: 04/29/16 11:04 Dose: 1 tab Al Hydroxide/Mg Hydroxide (Mylanta Oral Suspension -) 30 ml PO BID PRN PRN Reason: INDIGESTION Last Admin: 04/29/16 10:14 Dose: 30 ml Albuterol/Ipratropium (Duoneb -) 1 amp NEB QIDR [facility] Last Admin: 04/29/16 06:52 Dose: 1 amp Alprazolam (Xanax -) 0.5 mg PO BID [facility] Last Admin: 04/29/16 10:14 Dose: 0.5 mg Aspirin (Asa -) 325 mg PO DAILY [facility] Last Admin: 04/29/16 10:14 Dose: 325 mg Furosemide (Lasix -) 20 mg PO DAILY [facility] Last Admin: 04/29/16 10:14 Dose: 20 mg Glipizide (Glucotrol -) 5 mg PO DAILY@0700 [facility] Last Admin: 04/29/16 06:27 Dose: 5 mg Guaifenesin (Mucinex -) 600 mg PO BID [facility] Last Admin: 04/29/16 10:14 Dose: 600 mg Insulin Aspart (Novolog Vial Sliding Scale -) 1 vial SQ ACHS [facility] PRN Reason: Protocol Last Admin: 04/29/16 11:15 Dose: 2 unit Losartan Potassium (Cozaar -) 50 mg PO DAILY [facility] Last Admin: 04/29/16 10:14 Dose: 50 mg Nystatin (Nystatin Oral Suspension -) 500,000 units PO TID [facility] Last Admin: 04/29/16 06:27 Dose: 500,000 units Ondansetron HCl (Zofran Odt -) 4 mg SL Q8H PRN PRN Reason: NAUSEA AND/OR VOMITING Last Admin: 04/29/16 06:35 Dose: 4 mg Prednisone (Deltasone -) 20 mg PO BID [facility] Last Admin: 04/29/16 10:14 Dose: 20 mg Ranitidine HCl (Zantac -) 150 mg PO BID [facility] Last Admin: 04/29/16 10:14 Dose: 150 mg - Objective Vital Signs: Vital Signs Temperature 98.2 F 04/29/16 09:00 Pulse Rate 111 H 02/12/17 09:00 Respiratory Rate 18 04/29/16 09:00 Blood Pressure 145/66 04/29/16 09:00 O2 Sat by Pulse Oximetry (%) 96 04/29/16 10:20 Constitutional: Yes: Calm, Thin Eyes: Yes: WNL HENT: Yes: WNL Neck: Yes: WNL Cardiovascular: Yes: Regular Rate and Rhythm, S1, S2 Respiratory: Yes: Rales (BILATERAL CRACKLES 1/3 UP) Gastrointestinal: Yes: Normal Bowel Sounds, Soft Extremities: Yes: WNL Edema: No Assessment/Plan A/P Acute COPD Exacerbation HTN DM LV Diastolic Dysfunction Atelectasis - duonebs - O2 as needed - outpt PFTs - DVT prophylaxis DR DEVRIES
--- NOTE | 2016-04-29 14:13 | PN ---
Progress Note, Physician Chief Complaint: Stll c/o cough and SOB History of Present Illness: kg Katz follow up note noted - Current Medication List Current Medications: Active Medications Acetaminophen/Codeine Phosphate (Tylenol # 3 -) 1 tab PO Q8H PRN Last Admin: 04/29/16 11:04 Dose: 1 tab Al Hydroxide/Mg Hydroxide (Mylanta Oral Suspension -) 30 ml PO BID PRN PRN Reason: INDIGESTION Last Admin: 04/29/16 10:14 Dose: 30 ml Albuterol/Ipratropium (Duoneb -) 1 amp NEB QIDR [facility] Last Admin: 04/29/16 06:52 Dose: 1 amp Alprazolam (Xanax -) 0.5 mg PO BID [facility] Last Admin: 04/29/16 10:14 Dose: 0.5 mg Aspirin (Asa -) 325 mg PO DAILY [facility] Last Admin: 04/29/16 10:14 Dose: 325 mg Furosemide (Lasix -) 20 mg PO DAILY [facility] Last Admin: 04/29/16 10:14 Dose: 20 mg Glipizide (Glucotrol -) 5 mg PO DAILY@0700 [facility] Last Admin: 04/29/16 06:27 Dose: 5 mg Guaifenesin (Mucinex -) 600 mg PO BID [facility] Last Admin: 04/29/16 10:14 Dose: 600 mg Insulin Aspart (Novolog Vial Sliding Scale -) 1 vial SQ ACHS [facility] PRN Reason: Protocol Last Admin: 04/29/16 11:15 Dose: 2 unit Losartan Potassium (Cozaar -) 50 mg PO DAILY [facility] Last Admin: 04/29/16 10:14 Dose: 50 mg Nystatin (Nystatin Oral Suspension -) 500,000 units PO TID [facility] Last Admin: 04/29/16 06:27 Dose: 500,000 units Ondansetron HCl (Zofran Odt -) 4 mg SL Q8H PRN PRN Reason: NAUSEA AND/OR VOMITING Last Admin: 04/29/16 06:35 Dose: 4 mg Prednisone (Deltasone -) 20 mg PO BID [facility] Last Admin: 04/29/16 10:14 Dose: 20 mg Ranitidine HCl (Zantac -) 150 mg PO BID [facility] Last Admin: 04/29/16 10:14 Dose: 150 mg - Objective Vital Signs: Vital Signs Temperature 97.7 F 0212/17 13:58 Pulse Rate 96 H 04/29/16 13:58 Respiratory Rate 20 04/29/16 13:58 Blood Pressure 135/64 04/29/16 13:58 O2 Sat by Pulse Oximetry (%) 96 04/29/16 10:20 Constitutional: Yes: Mild Distress Eyes: Yes: WNL HENT: Yes: WNL Neck: Yes: WNL Cardiovascular: Yes: WNL Respiratory: Yes: On Nasal O2 Gastrointestinal: Yes: WNL ...Rectal Exam: Yes: Deferred Genitourinary: Yes: WNL Breast(s): Yes: WNL Integumentary: Yes: WNL Neurological: Yes: Alert Assessment/Plan COPD exacerebation Continue same trt
[2016-04-29] MEDS: AMINO ACIDS 4.25%/D5W 1,000 ML IV SCH (17:24)
[2016-04-30] MEDS: ALBUTEROL SO4 2.5/IPRATROPIUM 0.5 INH SOL 3 ML VIAL.NEB. NEB SCH ×4 (00:14→17:15)
[2016-04-30] MEDS: AMINO ACIDS 4.25%/D5W 1,000 ML IV SCH ×2 (04:03→15:25)
[2016-04-30] MEDS: NYSTATIN 500,000 UNITS/5 ML SUSPENSION PO SCH ×3 (06:27→21:51)
[2016-04-30] MEDS: INSULIN SLIDING SCALE (NOVOLOG) 1 VIAL SQ SCH ×4 (06:27→21:56)
[2016-04-30] MEDS: ACETAMINOPHEN WITH CODEINE 300MG/30MG TABLET PO PRN ×2 (06:27→18:32)
[2016-04-30] MEDS: glipiZIDE 5 MG TABLET (FP) PO SCH (06:27)
[2016-04-30] MEDS ORDERED: INSULIN (NOVOLOG) ASPART 100 UNITS/ML 10ML VIAL ONE ×3 (06:40→20:26)
[2016-04-30] MEDS ORDERED: INSULIN DETEMIR 100 UNITS/ML MDV SQ ONE (06:40)
--- NOTE | 2016-04-30 08:52 | PN ---
Progress Note, Physician Chief Complaint: Feels weak,cough persists History of Present Illness: Exacerbation of COPD May restart IV zethromax - Current Medication List Current Medications: Active Medications Acetaminophen/Codeine Phosphate (Tylenol # 3 -) 1 tab PO Q8H PRN Last Admin: 04/30/16 06:27 Dose: 1 tab Al Hydroxide/Mg Hydroxide (Mylanta Oral Suspension -) 30 ml PO BID PRN PRN Reason: INDIGESTION Last Admin: 04/29/16 10:14 Dose: 30 ml Albuterol/Ipratropium (Duoneb -) 1 amp NEB QIDR [facility] Last Admin: 04/30/16 06:30 Dose: Not Given Alprazolam (Xanax -) 0.5 mg PO BID [facility] Last Admin: 04/29/16 22:30 Dose: 0.5 mg Aspirin (Asa -) 325 mg PO DAILY [facility] Last Admin: 04/29/16 10:14 Dose: 325 mg Furosemide (Lasix -) 20 mg PO DAILY [facility] Last Admin: 04/29/16 10:14 Dose: 20 mg Glipizide (Glucotrol -) 5 mg PO DAILY@0700 [facility] Last Admin: 04/30/16 06:27 Dose: 5 mg Guaifenesin (Mucinex -) 600 mg PO BID [facility] Last Admin: 04/29/16 22:31 Dose: 600 mg Amino Acids (Clinimix -) 1,000 mls @ 84 mls/hr IV Q12H [facility] Last Admin: 04/30/16 04:03 Dose: 84 mls/hr Insulin Aspart (Novolog Vial Sliding Scale -) 1 vial SQ ACHS [facility] PRN Reason: Protocol Last Admin: 04/30/16 06:27 Dose: 10 unit Losartan Potassium (Cozaar -) 50 mg PO DAILY [facility] Last Admin: 04/29/16 10:14 Dose: 50 mg Nystatin (Nystatin Oral Suspension -) 500,000 units PO TID [facility] Last Admin: 04/30/16 06:27 Dose: 500,000 units Ondansetron HCl (Zofran Odt -) 4 mg SL Q8H PRN PRN Reason: NAUSEA AND/OR VOMITING Last Admin: 04/29/16 06:35 Dose: 4 mg Prednisone (Deltasone -) 20 mg PO BID [facility] Last Admin: 02/12/17 22:30 Dose: 20 mg Ranitidine HCl (Zantac -) 150 mg PO BID [facility] Last Admin: 04/29/16 22:30 Dose: 150 mg - Objective Vital Signs: Vital Signs Temperature 99 F 04/29/16 22:00 Pulse Rate 98 H 04/29/16 22:00 Respiratory Rate 20 04/29/16 22:00 Blood Pressure 140/72 04/29/16 22:00 O2 Sat by Pulse Oximetry (%) 97 04/29/16 20:34 Constitutional: Yes: Cachectic Eyes: Yes: WNL HENT: Yes: WNL Neck: Yes: WNL Cardiovascular: Yes: WNL Respiratory: Yes: On Nasal O2, SOB Gastrointestinal: Yes: WNL Genitourinary: Yes: WNL Musculoskeletal: Yes: Muscle Weakness Assessment/Plan Start back on zethromax IV
--- NOTE | 2016-04-30 10:37 | PN ---
Progress Note (short form) - Note Progress Note: Appears weak. Still with SOB and NAIR. Poor PO intake. Intake & Output 04/27/16 04/28/16 04/29/16 04/30/16 23:59 23:59 23:59 23:59 Intake Total 1600 675 354 7098 Balance 1600 174 733 0766 Last Vital Signs Temp Pulse Resp BP Pulse Ox 99 F 98 H 20 140/72 97 04/29/16 22:00 04/29/16 22:00 04/29/16 22:00 04/29/16 22:00 04/29/16 20:34 Active Medications Acetaminophen/Codeine Phosphate (Tylenol # 3 -) 1 tab PO Q8H PRN Last Admin: 04/30/16 06:27 Dose: 1 tab Al Hydroxide/Mg Hydroxide (Mylanta Oral Suspension -) 30 ml PO BID PRN PRN Reason: INDIGESTION Last Admin: 04/29/16 10:14 Dose: 30 ml Albuterol/Ipratropium (Duoneb -) 1 amp NEB QIDR [facility] Last Admin: 04/30/16 06:30 Dose: Not Given Alprazolam (Xanax -) 0.5 mg PO BID [facility] Last Admin: 04/29/16 22:30 Dose: 0.5 mg Aspirin (Asa -) 325 mg PO DAILY [facility] Last Admin: 04/29/16 10:14 Dose: 325 mg Furosemide (Lasix -) 20 mg PO DAILY [facility] Last Admin: 04/29/16 10:14 Dose: 20 mg Glipizide (Glucotrol -) 5 mg PO DAILY@0700 [facility] Last Admin: 04/30/16 06:27 Dose: 5 mg Guaifenesin (Mucinex -) 600 mg PO BID [facility] Last Admin: 04/29/16 22:31 Dose: 600 mg Amino Acids (Clinimix -) 1,000 mls @ 84 mls/hr IV Q12H [facility] Last Admin: 04/30/16 04:03 Dose: 84 mls/hr Azithromycin 250 mg/ Dextrose 250 mls @ 250 mls/hr IVPB DAILY [facility] Insulin Aspart (Novolog Vial Sliding Scale -) 1 vial SQ ACHS [facility] PRN Reason: Protocol Last Admin: 04/30/16 06:27 Dose: 10 unit Losartan Potassium (Cozaar -) 50 mg PO DAILY [facility] Last Admin: 04/29/16 10:14 Dose: 50 mg Nystatin (Nystatin Oral Suspension -) 500,000 units PO TID [facility] Last Admin: 04/30/16 06:27 Dose: 500,000 units Ondansetron HCl (Zofran Odt -) 4 mg SL Q8H PRN PRN Reason: NAUSEA AND/OR VOMITING Last Admin: 04/29/16 06:35 Dose: 4 mg Prednisone (Deltasone -) 20 mg PO BID [facility] Last Admin: 04/29/16 22:30 Dose: 20 mg Ranitidine HCl (Zantac -) 150 mg PO BID [facility] Last Admin: 04/29/16 22:30 Dose: 150 mg Constitutional: Yes: Appears weak, Mildly tachypneic at rest Eyes: Yes: WNL HENT: Yes: WNL Neck: Yes: WNL Cardiovascular: Yes: Regular Rate and Rhythm, S1, S2 Respiratory: Yes: No wheeze, Scattered rhonchi Gastrointestinal: Yes: Normal Bowel Sounds, Soft Extremities: Yes: WNL Edema: No Laboratory Results - last 24 hr 04/29/16 04/29/16 04/29/16 11:07 17:25 21:29 POC Glucometer 168 239 331 04/30/16 06:26 POC Glucometer 359 Assessment/Plan Acute COPD Exacerbation HTN DM LV Diastolic Dysfunction Atelectasis Duonebs O2 as needed Outpt PFTs DVT prophylaxis Prednisone BID Noted patient was re-started on Zmax Nutrition consult Dr Maloney Problem List - Problems (1) SOB (shortness of breath) Code(s): R06.02 - SHORTNESS OF BREATH (2) Weakness Code(s): R53.1 - WEAKNESS (3) Atelectasis of right lung Code(s): J98.11 - ATELECTASIS (4) URI (upper respiratory infection) Code(s): J06.9 - ACUTE UPPER RESPIRATORY INFECTION, UNSPECIFIED
[2016-04-30] MEDS: ASPIRIN 325 MG TABLET PO SCH (11:26)
[2016-04-30] MEDS: guaiFENesin 600 MG TABLET.ER (FP) PO SCH ×2 (11:26→21:50)
[2016-04-30] MEDS: ALPRAZolam 0.25 MG TABLET PO SCH ×2 (11:26→21:51)
[2016-04-30] MEDS: LOSARTAN POTASSIUM 50 MG TABLET (FP) PO SCH (11:27)
[2016-04-30] MEDS: RANITIDINE HCL 150 MG TABLET (FP) PO SCH ×2 (11:27→21:51)
[2016-04-30] MEDS: AZITHROMYCIN IVPB 250 MG in DEXTROSE 5%-WATER - 250 ML IVPB SCH (11:27)
[2016-04-30] MEDS: predniSONE 20 MG TABLET (UD) PO SCH ×2 (11:27→21:50)
[2016-04-30] MEDS: FUROSEMIDE 20 MG TABLET (FP) PO SCH (11:27)
--- NOTE | 2016-04-30 15:01 | PN ---
Progress Note, Physician History of Present Illness: 79 yo F, hx of IDDM, HTN, anxiety, chronic lower back pain, here w/ malaise, weakness, headache and cough x several days. Denies body aches, fever, chills, nausea, vomiting, abdominal pain, change in bowel movements, dysuria, chest pain or shortness of breath. - Current Medication List Current Medications: Active Medications Acetaminophen/Codeine Phosphate (Tylenol # 3 -) 1 tab PO Q8H PRN Last Admin: 04/30/16 06:27 Dose: 1 tab Al Hydroxide/Mg Hydroxide (Mylanta Oral Suspension -) 30 ml PO BID PRN PRN Reason: INDIGESTION Last Admin: 04/29/16 10:14 Dose: 30 ml Albuterol/Ipratropium (Duoneb -) 1 amp NEB QIDR [facility] Last Admin: 04/30/16 11:34 Dose: 1 amp Alprazolam (Xanax -) 0.5 mg PO BID [facility] Last Admin: 04/30/16 11:26 Dose: 0.5 mg Aspirin (Asa -) 325 mg PO DAILY [facility] Last Admin: 04/30/16 11:26 Dose: 325 mg Furosemide (Lasix -) 20 mg PO DAILY [facility] Last Admin: 04/30/16 11:27 Dose: 20 mg Glipizide (Glucotrol -) 5 mg PO DAILY@0700 [facility] Last Admin: 04/30/16 06:27 Dose: 5 mg Guaifenesin (Mucinex -) 600 mg PO BID [facility] Last Admin: 04/30/16 11:26 Dose: 600 mg Amino Acids (Clinimix -) 1,000 mls @ 84 mls/hr IV Q12H [facility] Last Admin: 04/30/16 04:03 Dose: 84 mls/hr Azithromycin 250 mg/ Dextrose 250 mls @ 250 mls/hr IVPB DAILY [facility] Last Admin: 04/30/16 11:27 Dose: 250 mls/hr Insulin Aspart (Novolog Vial Sliding Scale -) 1 vial SQ ACHS [facility] PRN Reason: Protocol Last Admin: 04/30/16 12:39 Dose: 8 unit Losartan Potassium (Cozaar -) 50 mg PO DAILY [facility] Last Admin: 04/30/16 11:27 Dose: 50 mg Nystatin (Nystatin Oral Suspension -) 500,000 units PO TID [facility] Last Admin: 04/30/16 14:51 Dose: 500,000 units Ondansetron HCl (Zofran Odt -) 4 mg SL Q8H PRN PRN Reason: NAUSEA AND/OR VOMITING Last Admin: 04/29/16 06:35 Dose: 4 mg Prednisone (Deltasone -) 20 mg PO BID [facility] Last Admin: 04/30/16 11:27 Dose: 20 mg Ranitidine HCl (Zantac -) 150 mg PO BID [facility] Last Admin: 04/30/16 11:27 Dose: 150 mg - Objective Vital Signs: Vital Signs Temperature 98.9 F 04/30/16 14:31 Pulse Rate 96 H 04/30/16 14:31 Respiratory Rate 20 04/30/16 14:31 Blood Pressure 154/87 04/30/16 14:31 O2 Sat by Pulse Oximetry (%) 94 L 04/30/16 13:30 Eyes: Yes: WNL, Conjunctiva Clear, EOM Intact HENT: Yes: WNL, Atraumatic, Normocephalic Neck: Yes: WNL, Supple, Trachea Midline Cardiovascular: Yes: WNL, Regular Rate and Rhythm Respiratory: Yes: WNL, Regular, CTA Bilaterally Gastrointestinal: Yes: WNL, Normal Bowel Sounds Genitourinary: Yes: WNL Musculoskeletal: Yes: WNL Extremities: Yes: WNL Edema: No Integumentary: Yes: WNL Neurological: Yes: WNL, Alert, Oriented ...Motor Strength: WNL Psychiatric: Yes: WNL Problem List - Problems (1) SOB (shortness of breath) Code(s): R06.02 - SHORTNESS OF BREATH (2) Weakness Code(s): R53.1 - WEAKNESS (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 ECHO: normal LVEF; +diastolic dysfunction; mild-moderate pulmonary valve regurgitation; mild MR.. Stress MIBI (Persantine): no myocardial ischemia. Rec: If aspirin is considered necessary, would lower dose to 81 mg/day, unless 325 mg is for neurologic or other reasons. Code(s): R06.02 - SHORTNESS OF BREATH (3) URI (upper respiratory infection) Assessment/Plan: +Influenza Ag ON antibiotics; f/u c/s. Code(s): J06.9 - ACUTE UPPER RESPIRATORY INFECTION, UNSPECIFIED (4) Weakness Code(s): R53.1 - WEAKNESS (5) Epigastric discomfort Code(s): R10.13 - EPIGASTRIC PAIN (6) Chronic lower back pain Assessment/Plan: s/p ?lower back surgery years ago; on "Tylenol" since; says she brought her own medication from home. She was told not to take any home meds unless cleared by nursing staff (her RN was informed). Code(s): M54.5 - LOW BACK PAIN G89.29 - OTHER CHRONIC PAIN (7) Sinus tachycardia Assessment/Plan: Rapid HR initially; afebrile; no PE by CT. F/u repeat EKG. TFTs (TSH low; f/u free T4). Maintain hydration (ECHO: normal LVEF; abnormal diastolic compliance). Code(s): R00.0 - TACHYCARDIA, UNSPECIFIED (8) Leukocytosis Assessment/Plan: f/u CBC. Code(s): D72.829 - ELEVATED WHITE BLOOD CELL COUNT, UNSPECIFIED (9) COPD (chronic obstructive pulmonary disease) Assessment/Plan: see under "SOB". Code(s): J44.9 - CHRONIC OBSTRUCTIVE PULMONARY DISEASE, UNSPECIFIED
[2016-04-30] MEDS: MAG HYDROX/AL HYDROX/SIMETH 30 ML UNIT-DOSE CUP PO PRN (16:50)
[2016-05-01] MEDS: AMINO ACIDS 4.25%/D5W 1,000 ML IV SCH (02:22)
[2016-05-01] MEDS: ACETAMINOPHEN WITH CODEINE 300MG/30MG TABLET PO PRN ×2 (02:29→10:44)
[2016-05-01] MEDS: NYSTATIN 500,000 UNITS/5 ML SUSPENSION PO SCH (06:32)
[2016-05-01] MEDS: glipiZIDE 5 MG TABLET (FP) PO SCH (06:32)
[2016-05-01] MEDS: INSULIN SLIDING SCALE (NOVOLOG) 1 VIAL SQ SCH (06:32)
[2016-05-01] MEDS: ALBUTEROL SO4 2.5/IPRATROPIUM 0.5 INH SOL 3 ML VIAL.NEB. NEB SCH ×3 (06:35→10:35)
--- NOTE | 2016-05-01 09:02 | DS ---
Physical Examination Vital Signs: Vital Signs Temperature 98.4 F 05/01/16 06:00 Pulse Rate 107 H 05/01/16 06:00 Respiratory Rate 20 05/01/16 06:00 Blood Pressure 139/79 05/01/16 06:00 O2 Sat by Pulse Oximetry (%) 99 04/30/16 21:00 Findings/Remarks: Admitted with COPD exacerbation ,improved not well enough to go home Constitutional: Yes: Cachectic Eyes: Yes: WNL HENT: Yes: WNL Neck: Yes: WNL Cardiovascular: Yes: WNL Respiratory: Yes: On Nasal O2, Poor Air Entry Gastrointestinal: Yes: WNL ...Rectal Exam: Yes: Deferred Renal/: Yes: WNL Edema: No Neurological: Yes: Alert, Unsteady Gait Psychiatric: Yes: Alert Discharge Summary Reason For Visit: SOB,WEAKNESS Current Active Problems Atelectasis of right lung (Acute) COPD (chronic obstructive pulmonary disease) (Acute) Chronic lower back pain (Acute) Leukocytosis (Acute) SOB (shortness of breath) (Acute) Sinus tachycardia (Acute) URI (upper respiratory infection) (Acute) Weakness (Acute) Condition: Improved - Instructions Referrals: Margareth Manzo MD [Primary Care Provider] - Disposition: HOME - Home Medications Comprehensive Discharge Medication List: Ambulatory Orders Amlodipine Besylate [Norvasc -] 10 mg PO DAILY 03/22/14 Losartan Potassium 100 mg PO DAILY 03/23/14 Acetaminophen W/ Codeine #3 [Tylenol # 3 -] 1 tab PO TID 04/20/16 Brimonidine Tartrate/Timolol [Combigan Eye Drops] 1 drop OU DAILY 04/20/16 Dorzolamide HCl [Trusopt 2%] 1 drop OU BID 04/20/16 Insulin (Novolog 70/30) [Novolog Mix 70/30 Flexpen -] 15 units SQ DAILY Latanoprost 0.005% Eye Drops [Xalatan 0.005% Eye Drops -] 1 drop OU HS 04/20/16
--- NOTE | 2016-05-01 10:31 | PN ---
Progress Note (short form) - Note Progress Note: Appears weak. Still with SOB and NAIR, but reports being better than on admission. Slightly better PO intake yesterday, but overall still with poor intake. Intake & Output 04/28/16 04/29/16 04/30/16 05/01/16 23:59 23:59 23:59 23:59 Intake Total 537 129 0901 1000 Balance 569 387 3413 1000 Last Vital Signs Temp Pulse Resp BP Pulse Ox 98.4 F 92 H 20 139/79 96 05/01/16 06:00 05/01/16 09:16 05/01/16 06:00 05/01/16 06:00 05/01/16 09:16 Active Medications Acetaminophen/Codeine Phosphate (Tylenol # 3 -) 1 tab PO Q8H PRN Last Admin: 05/01/16 02:29 Dose: 1 tab Al Hydroxide/Mg Hydroxide (Mylanta Oral Suspension -) 30 ml PO BID PRN PRN Reason: INDIGESTION Last Admin: 04/30/16 16:50 Dose: 30 ml Albuterol/Ipratropium (Duoneb -) 1 amp NEB QIDR [facility] Last Admin: 05/01/16 06:35 Dose: 1 amp Alprazolam (Xanax -) 0.5 mg PO BID [facility] Last Admin: 04/30/16 21:51 Dose: 0.5 mg Aspirin (Asa -) 325 mg PO DAILY [facility] Last Admin: 04/30/16 11:26 Dose: 325 mg Furosemide (Lasix -) 20 mg PO DAILY [facility] Last Admin: 04/30/16 11:27 Dose: 20 mg Glipizide (Glucotrol -) 5 mg PO DAILY@0700 [facility] Last Admin: 05/01/16 06:32 Dose: 5 mg Guaifenesin (Mucinex -) 600 mg PO BID [facility] Last Admin: 04/30/16 21:50 Dose: 600 mg Amino Acids (Clinimix -) 1,000 mls @ 84 mls/hr IV Q12H [facility] Last Admin: 05/01/16 02:22 Dose: 84 mls/hr Azithromycin 250 mg/ Dextrose 250 mls @ 250 mls/hr IVPB DAILY [facility] Last Admin: 04/30/16 11:27 Dose: 250 mls/hr Insulin Aspart (Novolog Vial Sliding Scale -) 1 vial SQ ACHS [facility] PRN Reason: Protocol Last Admin: 05/01/16 06:32 Dose: 10 unit Losartan Potassium (Cozaar -) 50 mg PO DAILY [facility] Last Admin: 04/30/16 11:27 Dose: 50 mg Nystatin (Nystatin Oral Suspension -) 500,000 units PO TID [facility] Last Admin: 05/01/16 06:32 Dose: 500,000 units Ondansetron HCl (Zofran Odt -) 4 mg SL Q8H PRN PRN Reason: NAUSEA AND/OR VOMITING Last Admin: 04/29/16 06:35 Dose: 4 mg Prednisone (Deltasone -) 20 mg PO BID [facility] Last Admin: 04/30/16 21:50 Dose: 20 mg Ranitidine HCl (Zantac -) 150 mg PO BID [facility] Last Admin: 04/30/16 21:51 Dose: 150 mg Constitutional: Yes: Appears weak, Mildly tachypneic at rest Eyes: Yes: WNL HENT: Yes: WNL Neck: Yes: WNL Cardiovascular: Yes: Regular Rate and Rhythm, S1, S2 Respiratory: Yes: No wheeze, Scattered rhonchi Gastrointestinal: Yes: Normal Bowel Sounds, Soft Extremities: Yes: WNL Edema: No Laboratory Results - last 24 hr 04/30/16 04/30/16 04/30/16 12:03 16:52 21:55 POC Glucometer 325 384 179 Assessment/Plan Acute COPD Exacerbation HTN DM LV Diastolic Dysfunction Atelectasis Duonebs O2 as needed Outpt PFTs once stable DVT prophylaxis Prednisone BID Not aware of patient's baseline, but she is for transfer to rehab today / would benefit from Pulmonary Rehab Dr Maloney Problem List - Problems (1) SOB (shortness of breath) Code(s): R06.02 - SHORTNESS OF BREATH (2) Weakness Code(s): R53.1 - WEAKNESS (3) Atelectasis of right lung Code(s): J98.11 - ATELECTASIS (4) URI (upper respiratory infection) Code(s): J06.9 - ACUTE UPPER RESPIRATORY INFECTION, UNSPECIFIED
[2016-05-01] MEDS: RANITIDINE HCL 150 MG TABLET (FP) PO SCH (10:43)
[2016-05-01] MEDS: AZITHROMYCIN IVPB 250 MG in DEXTROSE 5%-WATER - 250 ML IVPB SCH (10:43)
[2016-05-01] MEDS: ALPRAZolam 0.25 MG TABLET PO SCH (10:43)
[2016-05-01] MEDS: FUROSEMIDE 20 MG TABLET (FP) PO SCH (10:43)
[2016-05-01] MEDS: LOSARTAN POTASSIUM 50 MG TABLET (FP) PO SCH (10:45)
[2016-05-01] MEDS: guaiFENesin 600 MG TABLET.ER (FP) PO SCH (10:45)
[2016-05-01] MEDS: ASPIRIN 325 MG TABLET PO SCH (10:45)
[2016-05-01] MEDS: predniSONE 20 MG TABLET (UD) PO SCH (10:45)
[2016-05-01 11:03] VITALS: BP 147/76; PULSE 106; TEMP 97.5
--- NOTE | 2016-05-01 14:37 | PN ---
Progress Note, Physician Chief Complaint: Pt alert; denies dyspnea or chest pain. History of Present Illness: 79 yo black woman with PMhx of IDDM, HTN, anxiety, chronic lower back pain, here w/ malaise, weakness, headache and cough x several days. Denies body aches , fever, chills, nausea, vomiting, abdominal pain, change in bowel movements, dysuria, chest pain or shortness of breath. - Objective Vital Signs: Vital Signs Temperature 97.5 F L 05/01/16 11:02 Pulse Rate 106 H 05/01/16 11:02 Respiratory Rate 20 05/01/16 11:02 Blood Pressure 147/76 05/01/16 11:02 O2 Sat by Pulse Oximetry (%) 96 05/01/16 09:16 Constitutional: Yes: Thin Eyes: Yes: WNL HENT: Yes: WNL Neck: Yes: WNL Cardiovascular: Yes: Regular Rate and Rhythm Respiratory: Yes: Regular Gastrointestinal: Yes: Soft ...Rectal Exam: Yes: Deferred Genitourinary: No: Anuria Breast(s): Yes: WNL Musculoskeletal: Yes: Muscle Weakness Extremities: Yes: Cool Edema: No Peripheral Pulses WNL: No Peripheral Pulses: Left Doralis Pedis: 1+, Right Dorsalis Pedis: 1+ Neurological: Yes: Alert, Oriented, Weakness Psychiatric: Yes: Alert, Oriented Problem List - Problems (1) Atelectasis of right lung Assessment/Plan: O2, bronchodilators, antibiotics per ID, pulmonary Code(s): J98.11 - ATELECTASIS (2) SOB (shortness of breath) Assessment/Plan: CT chest: chronic lung disease (mild increased interstitial markings); no acute long disease. ECHO: normal LVEF; +diastolic dysfunction; mild-moderate pulmonary valve regurgitation; mild MR.. Stress MIBI (Persantine): no myocardial ischemia. Rec: If aspirin is considered necessary, would lower dose to 81 mg/day, unless 325 mg is for neurologic or other reasons. Nausea: for ranitidine; f/u clinically. Code(s): R06.02 - SHORTNESS OF BREATH (3) URI (upper respiratory infection) Assessment/Plan: +Influenza Ag ON antibiotics; f/u c/s. Code(s): J06.9 - ACUTE UPPER RESPIRATORY INFECTION, UNSPECIFIED (4) Weakness Code(s): R53.1 - WEAKNESS (5) Epigastric discomfort Code(s): R10.13 - EPIGASTRIC PAIN (6) Chronic lower back pain Assessment/Plan: s/p ?lower back surgery years ago; on "Tylenol" since; says she brought her own medication from home. She was told not to take any home meds unless cleared by nursing staff (her RN was informed). Code(s): M54.5 - LOW BACK PAIN G89.29 - OTHER CHRONIC PAIN (7) Sinus tachycardia Assessment/Plan: Rapid HR initially; afebrile; no PE by CT. Repeat EKG: resolved. Maintain hydration (ECHO: normal LVEF; abnormal diastolic compliance). Mildly elevated free T4 (1.57); f/u with mental health therapist. Code(s): R00.0 - TACHYCARDIA, UNSPECIFIED (8) Leukocytosis Code(s): D72.829 - ELEVATED WHITE BLOOD CELL COUNT, UNSPECIFIED (9) COPD (chronic obstructive pulmonary disease) Code(s): J44.9 - CHRONIC OBSTRUCTIVE PULMONARY DISEASE, UNSPECIFIED
== END 2016-05-01 13:52 | DRG 191 ==
LOC: JER 09:36 → JERBED 16:40 → J4W 19:40 → J7W 04-23 18:07
PROVIDERS: ADMIT Internal Medicine; ATTEND Internal Medicine
DX: J44.1 Chronic obstructive pulmonary disease with (acute) exacerbation (principal); J98.11 Atelectasis; R64 Cachexia; I10 Essential (primary) hypertension; M54.5 Low back pain; E11.9 Type 2 diabetes mellitus without complications; F41.8 Other specified anxiety disorders; D72.829 Elevated white blood cell count, unspecified; J06.9 Acute upper respiratory infection, unspecified; R00.0 Tachycardia, unspecified; Z68.24 Body mass index [BMI] 24.0-24.9, adult; F17.210 Nicotine dependence, cigarettes, uncomplicated; R10.13 Epigastric pain; Z79.4 Long term (current) use of insulin
CPT/HCPCS: 36415; 71010-TC; 71275-TC; 78452-TC; 80053; 80061; 81003; 81015; 82550; 82553; 83721; 83880; 84439; 84443; 84484; 85025; 85379; 87254; 87804; 87899; 93005; 93010; 93017; 93306-TC; 94640; 97116-GP; 97161-GP; 99285-25; A9502

== ENCOUNTER 2016-07-21 04:09 | Inpatient (IN) | payer OTHER ==
[2016-07-21 04:37] LABS: EOSINOPHIL 1.7 % (0-4.5); MCH 29.7 pg (25.7-33.7); MCHC 32.2 g/dl (32.0-36.0); MEAN CELL VOLUME 92.3 fl (80-96); MEAN PLT VOLUME 8.7 fl (7.5-11.1); NEUTROPHILS 71.2 % (42.8-82.8); PLATELET COUNT 443 K/MM3 (134-434); RDW 12.9 % (11.6-15.6); WHITE BLOOD COUNT 13.2 K/mm3 (4.0-10.0)
--- NOTE | 2016-07-21 04:39 | PDOC ---
History of Present Illness - General History Source: Patient Exam Limitations: No Limitations - History of Present Illness Initial Comments: 07/21/16 05:20 The patient is a 80 year old female with significant past medical history of hypertension, diabetes, copd, anxiety and chronic lower back pain who presents to the ED BIBA from home for 1 day of persistent diarrhea. Patient reports epigastric pain and vomiting. States she is unable to tolerate and foods or liquids. Patient also has complaints of cough and SOB. The patient denies fever, chills, diaphoresis, chest pain, and palpitations. Allergies: NKDA Social History: Lives at home alone. No alcohol, tobacco, or drug use reported. Past Surgical History: None reported PCP: Dr. Margareth Manzo <Ally Vann - Last Filed: 07/21/16 06:28> <Marcelle Putnam - Last Filed: 07/21/16 06:39> - General Chief Complaint: Vomiting/Diarrhea Stated Complaint: CHEST PAIN Time Seen by Provider: 07/21/16 04:38 Past History <Ally Vann - Last Filed: 07/21/16 06:28> - Past Medical History Anemia: No Asthma: No Cancer: No Cardiac Disorders: No CVA: No COPD: No CHF: No Dementia: No Diabetes: Yes GI Disorders: No Disorders: No HTN: Yes Hypercholesterolemia: Yes Liver Disease: No Seizures: No Thyroid Disease: No - Surgical History Appendectomy: No Cardiac Surgery: No Cholecystectomy: No Lung Surgery: No Neurologic Surgery: Yes (SURGERY FOR HERNIATED RISK) Orthopedic Surgery: Yes (BACK SURGERY) - Immunization History Immunization Up to Date: No - Psycho/Social/Smoking Cessation Hx Anxiety: No Suicidal Ideation: No Smoking History: Never smoked Have you smoked in the past 12 months: No Number of Cigarettes Smoked Daily: 3 Information on smoking cessation initiated: No 'Breaking Loose' booklet given: 04/20/16 Hx Alcohol Use: No Drug/Substance Use Hx: No Substance Use Type: None Hx Substance Use Treatment: No <Marcelle Putnam - Last Filed: 07/21/16 06:39> - Past Medical History Allergies/Adverse Reactions: Allergies Allergy/AdvReac Type Severity Reaction Status Date / Time No Known Allergies Allergy Verified 07/21/16 04:16 Home Medications: Ambulatory Orders Amlodipine Besylate [Norvasc -] 10 mg PO DAILY 03/22/14 Losartan Potassium 100 mg PO DAILY 03/23/14 Acetaminophen W/ Codeine #3 [Tylenol # 3 -] 1 tab PO TID 04/20/16 Brimonidine Tartrate/Timolol [Combigan Eye Drops] 1 drop OU DAILY 04/20/16 Dorzolamide HCl [Trusopt 2%] 1 drop OU BID 04/20/16 Insulin (Novolog 70/30) [Novolog Mix 70/30 Flexpen -] 15 units SQ DAILY Latanoprost 0.005% Eye Drops [Xalatan 0.005% Eye Drops -] 1 drop OU HS 04/20/16 Unobtainable 07/21/16 Review of Systems - Review of Systems Able to Perform ROS?: Yes Comments:: 07/21/16 05:22 CONSTITUTIONAL: Absent: fever, chills, diaphoresis, generalized weakness, malaise, loss of appetite HEENT: Absent: rhinorrhea, nasal congestion, throat pain, throat swelling, difficulty swallowing, mouth swelling, ear pain, eye pain, visual Changes CARDIOVASCULAR: Absent: chest pain, syncope, palpitations, irregular heart rate, lightheadedness , peripheral edema RESPIRATORY: +cough, shortness of breath Absent: dyspnea with exertion, orthopnea, wheezing, stridor, hemoptysis GASTROINTESTINAL: +epigastric pain, vomiting, diarrhea Absent: abdominal distension, constipation , melena, hematochezia GENITOURINARY: Absent: dysuria, frequency, urgency, hesitancy, hematuria, flank pain, genital pain MUSCULOSKELETAL: Absent: myalgia, arthralgia, joint swelling SKIN: Absent: rash, itching, pallor NEUROLOGIC: Absent: headache, focal weakness or paresthesias, dizziness, unsteady gait, seizure, mental status changes, bladder or bowel incontinence PSYCHIATRIC: Absent: anxiety, depression, suicidal or homicidal ideation, hallucinations. <Ally Vann - Last Filed: 07/21/16 06:28> *Physical Exam - Vital Signs Last Vital Signs Temp Pulse Resp BP Pulse Ox 97.2 F L 99 H 20 155/76 100 07/21/16 04:16 07/21/16 04:16 07/21/16 04:16 07/21/16 04:16 07/21/16 04:45 - Physical Exam Comments: 07/21/16 05:33 GENERAL: Well developed, well nourished. Awake and alert. No acute distress. HEENT: Normocephalic, atraumatic. PERRLA, EOMI. No conjunctival pallor. Sclera are non- icteric. Moist mucous membranes. Oropharynx is clear. NECK: Supple. Full ROM. No JVD. Carotid pulses 2+ and symmetric, without bruits. No thyromegaly. No lymphadenopathy. CARDIOVASCULAR: Regular rate and rhythm. No murmurs, rubs, or gallops. Distal pulses are 2+ and symmetric. PULMONARY: No evidence of respiratory distress. Good airway exchange. Diffuse rhonchorous breath sounds. No wheezing or rales. ABDOMINAL: Soft. Non-tender. Non-distended. No rebound or guarding. No organomegaly. Normoactive bowel sounds. MUSCULOSKELETAL: Normal range of motion at all joints. No bony deformities or tenderness. Scoliosis. No CVA tenderness. EXTREMITIES: No cyanosis. No clubbing. No edema. No calf tenderness. SKIN: Warm and dry. Normal capillary refill. No rashes. No jaundice. NEUROLOGICAL: Alert, awake, appropriate. Cranial nerves 2-12 intact. Moving all extremities. No gross focal neurological deficits. PSYCHIATRIC: Cooperative. Good eye contact. Appropriate mood and affect. <Ally Vann - Last Filed: 07/21/16 06:28> - Vital Signs Last Vital Signs Temp Pulse Resp BP Pulse Ox 97.2 F L 99 H 20 155/76 100 07/21/16 04:16 07/21/16 04:16 07/21/16 04:16 07/21/16 04:16 07/21/16 04:16 <Marcelle Putnam - Last Filed: 07/21/16 06:39> Heart Score/ECG Review - ECG Impressions Comment:: 07/21/16 06:28 Poor baseline NSR @96bpm <Ally Vann - Last Filed: 07/21/16 06:28> ED Treatment Course - LABORATORY CBC & Chemistry Diagram: 07/21/16 04:15 07/21/16 04:15 - ADDITIONAL ORDERS Additional order review: Laboratory Results 07/21/16 07/21/16 07/21/16 04:15 04:15 04:15 INR 0.94 Sodium 139 Potassium 3.3 L Chloride 104 Carbon Dioxide 25 Anion Gap 10 BUN 10 D Creatinine 0.9 Creat Clearance w eGFR > 60 Random Glucose 162 H D Calcium 8.7 Total Bilirubin 0.3 D AST 17 D ALT 15 D Alkaline Phosphatase 117 Creatine Kinase 52 Troponin I < 0.02 Total Protein 7.2 Albumin 2.9 L D Lipase 57 L 07/21/16 04:15 RBC 4.24 MCV 92.3 MCHC 32.2 RDW 12.9 MPV 8.7 D Neutrophils % 71.2 Lymphocytes % 18.0 D Monocytes % 8.1 Eosinophils % 1.7 D Basophils % 1.0 <Ally Vann - Last Filed: 07/21/16 06:28> - LABORATORY CBC & Chemistry Diagram: 07/21/16 04:15 07/21/16 04:15 - RADIOLOGY Radiology Studies Ordered: Category Date Time Status CHEST X-RAY PORTABLE* [RAD] Stat Radiology 07/21/16 04:15 Ordered <Marcelle Putnam - Last Filed: 07/21/16 06:39> Medical Decision Making - Medical Decision Making 07/21/16 06:[address] Jessica Vu who is covering for Dr. Margareth Manzo (via answering service) at 6:24 and patient's case was discussed. <Ally Vann - Last Filed: 07/21/16 06:28> - Medical Decision Making 07/21/16 06:35 Patient is diabetic HTN. COPD, comes with diarrhea and vomiting and dehydration. She has normal labs, anion gap is normal. Potassium is low, we will treat with magnesium and potassium. Pt will be given pepcid and reglan and NSS; she will be admitted to her PMD Dr. Manzo. His partner Dr. Block is aware of the admission. Pt's EKH and CXR are normal. Pt's son, Wicho's contact # is . <Marcelle Putnam - Last Filed: 07/21/16 06:39> *DC/Admit/Observation/Transfer - Attestations Scribe Attestion: 07/21/16 05:22 Documentation prepared by Ally Vann, acting as medical administrator for Marcelle Putnam MD <Ally Vann - Last Filed: 07/21/16 06:28> - Discharge Dispostion Admit: Yes <Marcelle Putnam - Last Filed: 07/21/16 06:39> Diagnosis at time of Disposition: Sinus tachycardia, Vomiting, Diarrhea, Dehydration
[2016-07-21 04:49] LABS: INR 0.94 (0.82-1.09); PROTHROMBIN TIME (PATIENT) 10.3 SEC (9.98-11.88)
[2016-07-21 05:01] LABS: ALBUMIN 2.9 g/dl (3.4-5.0); ANION GAP 10 (8-16); BILIRUBIN,TOTAL 0.3 mg/dL (0.2-1.0); CALCIUM 8.7 mg/dL (8.5-10.1); CO2 25 mmol/L (21-32); CREATININE 0.9 mg/dL (0.55-1.02); GLUCOSE,RANDOM 162 mg/dL (74-106); SGOT/AST 17 U/L (15-37); SGPT/ALT 15 U/L (12-78); TOT PROT 7.2 g/dl (6.4-8.2)
[2016-07-21 05:03] LABS: ALK PHOS 117 U/L (45-117); TROPONIN I < 0.02 ng/ml (0.00-0.05)
[2016-07-21] MEDS ORDERED: FAMOTIDINE 20 MG/50 ML IVPB 50 ML IVPB ONE ×2 (05:14→05:35)
[2016-07-21] MEDS ORDERED: MAGNESIUM SULF 50% (8.12 MEQ/2 ML-1 GM VIAL) IVPB ONE (05:14)
[2016-07-21] MEDS ORDERED: SODIUM CHLORIDE 0.9% 500 ML INFUS.BAG IV ONE (05:15)
[2016-07-21] MEDS ORDERED: METOCLOPRAMIDE HCL INJECTION 10 MG/2 ML VIAL IVPB ONE (05:15)
[2016-07-21] MEDS ORDERED: MAGNESIUM SULF 50% (8.12 MEQ/2 ML-1 GM VIAL) ONE (05:35)
[2016-07-21] MEDS ORDERED: METOCLOPRAMIDE HCL INJECTION 10 MG/2 ML VIAL ONE (05:35)
[2016-07-21] MEDS ORDERED: LORAZEPAM CARPU-JECT 2 MG/ML DISP.SYRIN IVPUSH ONE (06:21)
[2016-07-21] MEDS ORDERED: LORAZEPAM CARPU-JECT 2 MG/ML DISP.SYRIN ONE (06:23)
[2016-07-21] MEDS ORDERED: ACETAMINOPHEN 1000 MG/100 ML VIAL (NON FORMULARY) IVPB ONE (06:34)
[2016-07-21] MEDS ORDERED: ACETAMINOPHEN INJECTION 100 ML IVPB ONE (07:13)
[2016-07-21] MEDS ORDERED: POTASSIUM CHLORIDE ORAL LIQUID 20 MEQ/15 ML ONE (08:37)
[2016-07-21] MEDS ORDERED: POTASSIUM CHLORIDE ORAL LIQUID 20 MEQ/15 ML PO ONE (08:39)
--- NOTE | 2016-07-21 09:16 | EKG ---
Test Reason : Blood Pressure : / mmHG Vent. Rate : 096 BPM Atrial Rate : 096 BPM P-R Int : 144 ms QRS Dur : 066 ms QT Int : 360 ms P-R-T Axes : 104 050 091 degrees QTc Int : 454 ms POOR DATA QUALITY, INTERPRETATION MAY BE ADVERSELY AFFECTED NORMAL SINUS RHYTHM ANTERIOR INFARCT , AGE UNDETERMINED ABNORMAL ECG WHEN COMPARED WITH ECG OF 25-APR-2016 08:58, PREMATURE VENTRICULAR COMPLEXES ARE NO LONGER PRESENT NONSPECIFIC T WAVE ABNORMALITY, IMPROVED IN LATERAL LEADS Confirmed by REYES GOMEZ MD ([id number]) on 07/21/2016 9:16:25 AM Referred By: Confirmed By:REYES GOMEZ MD
[2016-07-21] MEDS ORDERED: ONDANSETRON 4 MG/2 ML VIAL IVPB PRN (10:59)
[2016-07-21] MEDS ORDERED: SODIUM CHLORIDE 0.9%/KCL 1,000 ML IV SCH (11:00)
--- NOTE | 2016-07-21 11:07 | HP ---
Admitting History and Physical - Primary Care Physician PCP: Margareth Manzo - Admission Chief Complaint: Epigastric Pain with Dairrhea and Vomiting History of Present Illness: 80 yrs old F lives at home independent ADLS H/O HTN, T2DM on Insulin, Chronic Back pain, COPD ? present with 1 day H/O dull epigastria pain with nausea, vomiting and diarrhea, pain is localized to epigastria area 5/10, constant, non radiating with 2 episodes of non blood, non-billious vomiting and watery dairrhea 3-4 rtimes with mild cough and subjective fever, no recent travelling, sick contact or eating out denies any chest pain SOB, PND or Orthopnea. in the ED w/u shows elevated TWBC and Hypokalemia with dehydartion admitted for further management. History Source: Patient Limitations to Obtaining History: No Limitations - Past Medical History Cardiovascular: Yes: HTN Musculoskeletal: Yes: Chronic low back pain Endocrine: Yes: Diabetes Mellitus - Smoking History Smoking history: Never smoked Have you smoked in the past 12 months: No Aproximately how many cigarettes per day: 3 - Alcohol/Substance Use Hx Alcohol Use: No - Social History ADL: Independent History of Recent Travel: No Home Medications - Allergies Allergies/Adverse Reactions: Allergies Allergy/AdvReac Type Severity Reaction Status Date / Time No Known Allergies Allergy Verified 07/21/16 04:16 - Home Medications Home Medications: Ambulatory Orders Amlodipine Besylate [Norvasc -] 10 mg PO DAILY 03/22/14 Losartan Potassium 100 mg PO DAILY 03/23/14 Acetaminophen W/ Codeine #3 [Tylenol # 3 -] 1 tab PO TID 04/20/16 Brimonidine Tartrate/Timolol [Combigan Eye Drops] 1 drop OU DAILY 04/20/16 Dorzolamide HCl [Trusopt 2%] 1 drop OU BID 04/20/16 Insulin (Novolog 70/30) [Novolog Mix 70/30 Flexpen -] 15 units SQ DAILY Latanoprost 0.005% Eye Drops [Xalatan 0.005% Eye Drops -] 1 drop OU HS 04/20/16 Unobtainable 07/21/16 Family Disease History - Family Disease History Other Family History: Non Contributary Review of Systems - Review of Systems Constitutional: reports: Loss of Appetite, Malaise Eyes: reports: No Symptoms HENT: reports: No Symptoms Neck: reports: No Symptoms Cardiovascular: reports: No Symptoms Respiratory: reports: No Symptoms Gastrointestinal: reports: Abdominal Pain (Epigastric), Diarrhea Genitourinary: reports: No Symptoms Breasts: reports: No Symptoms Reported Musculoskeletal: reports: Back Pain Neurological: reports: No Symptoms Endocrine: reports: No Symptoms Hematology/Lymphatic: reports: No Symptoms Psychiatric: reports: No Symptoms Pain Intensity: 3 Physical Examination Vital Signs: Vital Signs Temperature 97.5 F L 07/21/16 09:00 Pulse Rate 100 H 07/21/16 09:00 Respiratory Rate 18 07/21/16 09:00 Blood Pressure 125/67 07/21/16 09:00 O2 Sat by Pulse Oximetry (%) 95 07/21/16 08:34 Constitutional: Yes: Well Nourished, No Distress Eyes: Yes: WNL, Conjunctiva Clear, EOM Intact HENT: Yes: WNL, Atraumatic. No: Nasal Congestion Neck: Yes: Supple, Trachea Midline. No: Decreased ROM Cardiovascular: Yes: WNL, Regular Rate and Rhythm, Tachycardia. No: JVD, Murmur , Rub Respiratory: Yes: WNL, Regular, CTA Bilaterally. No: Accessory Muscle Use Gastrointestinal: Yes: Hyperactive Bowel Sounds, Tenderness, Epigastrium. No: Tenderness, Rebound ...Rectal Exam: Yes: Deferred Renal/: No: Anuria, Bladder Distention, CVA Tenderness - Left Musculoskeletal: Yes: WNL, Back Pain. No: Joint Stiffness, Joint Swelling Extremities: Yes: WNL. No: Calf Tenderness, Deformity Edema: No Peripheral Pulses WNL: Yes Integumentary: Yes: WNL Neurological: Yes: WNL, Alert, Oriented ...Motor Strength: WNL Psychiatric: Yes: WNL Labs: CBC,CMP WBC 13.2 K/mm3 (4.0-10.0) H 07/21/16 04:15 RBC 4.24 M/mm3 (3.60-5.2) 07/21/16 04:15 Hgb 12.6 GM/dL (10.7-15.3) 07/21/16 04:15 Hct 39.1 % (32.4-45.2) 07/21/16 04:15 MCV 92.3 fl (80-96) 07/21/16 04:15 MCHC 32.2 g/dl (32.0-36.0) 07/21/16 04:15 RDW 12.9 % (11.6-15.6) 07/21/16 04:15 Plt Count 443 K/MM3 (134-434) H D 07/21/16 04:15 MPV 8.7 fl (7.5-11.1) D 07/21/16 04:15 Neutrophils % 71.2 % (42.8-82.8) 07/21/16 04:15 Lymphocytes % 18.0 % (8-40) D 07/21/16 04:15 Monocytes % 8.1 % (3.8-10.2) 07/21/16 04:15 Eosinophils % 1.7 % (0-4.5) D 07/21/16 04:15 Basophils % 1.0 % (0-2.0) 07/21/16 04:15 Sodium 139 mmol/L (136-145) 07/21/16 04:15 Potassium 3.3 mmol/L (3.5-5.1) L 07/21/16 04:15 Chloride 104 mmol/L (98-107) 07/21/16 04:15 Carbon Dioxide 25 mmol/L (21-32) 07/21/16 04:15 Anion Gap 10 (8-16) 07/21/16 04:15 BUN 10 mg/dL (7-18) D 07/21/16 04:15 Creatinine 0.9 mg/dL (0.55-1.02) 07/21/16 04:15 Creat Clearance w eGFR > 60 (>60) 07/21/16 04:15 Random Glucose 162 mg/dL (74-106) H D 07/21/16 04:15 Calcium 8.7 mg/dL (8.5-10.1) 07/21/16 04:15 Total Bilirubin 0.3 mg/dL (0.2-1.0) D 07/21/16 04:15 AST 17 U/L (15-37) D 07/21/16 04:15 ALT 15 U/L (12-78) D 07/21/16 04:15 Alkaline Phosphatase 117 U/L (45-117) 07/21/16 04:15 Creatine Kinase 52 IU/L (26-192) 07/21/16 04:15 Troponin I < 0.02 ng/ml (0.00-0.05) 07/21/16 04:15 Total Protein 7.2 g/dl (6.4-8.2) 07/21/16 04:15 Albumin 2.9 g/dl (3.4-5.0) L D 07/21/16 04:15 Lipase 57 U/L (73-393) L 07/21/16 04:15 Imaging - Results X-ray: Report Reviewed (Normal) EKG: Report Reviewed ([address] T chnages) Problem List - Problems (1) Diarrhea Assessment/Plan: Present with Diarrhea watery, 4-5 times with nausea, no recent abx use will F/U stool WBC, C Diff iof + add Falagyly 500 mg q 8 hrly. IV Hydration. Code(s): R19.7 - DIARRHEA, UNSPECIFIED (2) Dehydration Assessment/Plan: Due to diarrhea f/U BMP after Hydration Code(s): E86.0 - DEHYDRATION (3) Hypokalemia Assessment/Plan: Due to diarrhea repleted F/U BMP in am and Mag level. Code(s): E87.6 - HYPOKALEMIA (4) Epigastric discomfort Assessment/Plan: With Diarrhea, Lipase level is normal and LFTs are normal, cont Zofran and Famotidine Code(s): R10.13 - EPIGASTRIC PAIN (5) T2DM (type 2 diabetes mellitus) Assessment/Plan: H/O T2DM RPG 163 F/U HbA!C as out patient cont home dose insulin with correction dose humalog. Code(s): E11.9 - TYPE 2 DIABETES MELLITUS WITHOUT COMPLICATIONS (6) H/O: HTN (hypertension) Assessment/Plan: Cont Home Medications at present BP is well controlled. Code(s): Z86.79 - PERSONAL HISTORY OF OTHER DISEASES OF THE CIRCULATORY SYSTEM (7) Chronic back pain Assessment/Plan: Cont Home Medication, Tylenol No 3 Code(s): M54.9 - DORSALGIA, UNSPECIFIED G89.29 - OTHER CHRONIC PAIN (8) UTI (urinary tract infection) Code(s): N39.0 - URINARY TRACT INFECTION, SITE NOT SPECIFIED (9) Encounter for smoking cessation counseling Assessment/Plan: Counselled for smoking cessation, agreed will cont Nicotine patch. Code(s): Z71.6 - TOBACCO ABUSE COUNSELING Z72.0 - TOBACCO USE
[2016-07-21 11:27] LABS: URINE APPEARANCE CLOUDY; URINE BILIRUBIN NEGATIVE (NEGATIVE); URINE COLOR YELLOW; URINE GLUCOSE (UA) NEGATIVE (NEGATIVE); URINE KETONE TRACE (NEGATIVE); URINE NITRITE NEGATIVE (NEGATIVE); URINE PROTEIN NEGATIVE (NEGATIVE); URINE UROBILINOGEN NEGATIVE E.U./dl (0.2-1.0)
[2016-07-21 11:45] LABS: URINE BLOOD 2+ (NEGATIVE); URINE LEUK ESTERASE 3+ (NEGATIVE)
[2016-07-21 11:58] LABS: URINE RBC 8 /hpf (0-3); URINE WBC 32 /hpf (3-5)
[2016-07-21] MEDS: INSULIN SLIDING SCALE (NOVOLOG) 1 VIAL SQ SCH ×2 (12:27→16:49)
[2016-07-21] MEDS ORDERED: ALBUTEROL SO4 6.7 GM HFA INHALER IH PRN (12:38)
[2016-07-21] MEDS: ACETAMINOPHEN WITH CODEINE 300MG/30MG TABLET PO SCH ×2 (12:59→21:25)
[2016-07-21] MEDS: CEFTRIAXONE 50 ML IVPB SCH (13:05)
[2016-07-21 13:10] VITALS: BMI 17.7
[2016-07-21] MEDS: ALPRAZolam 0.25 MG TABLET PO PRN (16:48)
[2016-07-21] MEDS: DORZOLAMIDE 2% HCL OPHTHALMIC SOLUTION 10 ML BOTTLE OU SCH (21:24)
[2016-07-21] MEDS: LATANOPROST 0.005% OPHTH SOLN 2.5ML BOTTLE OU SCH (21:25)
[2016-07-21] MEDS ORDERED: FAMOTIDINE 20 MG/50 ML IVPB 50 ML IVPB SCH (22:00)
[2016-07-22] MEDS: ALPRAZolam 0.25 MG TABLET PO PRN ×3 (00:20→20:25)
[2016-07-22] MEDS: ACETAMINOPHEN WITH CODEINE 300MG/30MG TABLET PO SCH ×3 (05:50→22:34)
[2016-07-22] MEDS: INSULIN SLIDING SCALE (NOVOLOG) 1 VIAL SQ SCH ×3 (06:01→16:10)
[2016-07-22] MEDS ORDERED: PT OWN MED DRAWER 7, Y5N ONE ×2 (06:23→22:33)
[2016-07-22] MEDS ORDERED: INSULIN (NOVOLOG MIX 70/30) 100 UNITS/ML MDV SQ SCH (07:00)
[2016-07-22 07:47] LABS: BASOPHIL 0.9 % (0-2.0); EOSINOPHIL 1.7 % (0-4.5); MCH 30.9 pg (25.7-33.7); MCHC 32.8 g/dl (32.0-36.0); MEAN CELL VOLUME 94.2 fl (80-96); NEUTROPHILS 73.9 % (42.8-82.8); PLATELET COUNT 384 K/MM3 (134-434); RDW 13.5 % (11.6-15.6); WHITE BLOOD COUNT 13.3 K/mm3 (4.0-10.0)
[2016-07-22 08:26] LABS: ALBUMIN 2.5 g/dl (3.4-5.0); ANION GAP 10 (8-16); BILIRUBIN,TOTAL 0.4 mg/dL (0.2-1.0); CALCIUM 7.9 mg/dL (8.5-10.1); CO2 24 mmol/L (21-32); COCKROFT - GAULT 39.4995; CREATININE 0.8 mg/dL (0.55-1.02); GLUCOSE,RANDOM 83 mg/dL (74-106); SGPT/ALT 12 U/L (12-78); TOT PROT 6.2 g/dl (6.4-8.2)
[2016-07-22 08:27] LABS: ALK PHOS 102 U/L (45-117); SGOT/AST 14 U/L (15-37)
[2016-07-22] MEDS ORDERED: PNEUMOC 13-VAL CONJ-DIP CRM/PF 0.5 ML DISP.SYRIN IM ONE (08:50)
[2016-07-22] MEDS ORDERED: INFLUENZA VACCINE 60 MCG/0.5 ML (P/F DISP.SYRIN 16-17) IM ONE (08:51)
--- NOTE | 2016-07-22 09:28 | PN ---
Progress Note, Physician Chief Complaint: Feels improved , nausea and vomiting improved no diarrhea, appetite is improving.denies any supra pubic or CVA pain. - Current Medication List Current Medications: Active Medications Acetaminophen/Codeine Phosphate (Tylenol # 3 -) 1 tab PO TID [facility] Last Admin: 07/22/16 05:50 Dose: 1 tab Albuterol Sulfate (Ventolin Hfa Inhaler -) 2 puff IH Q6H PRN PRN Reason: SHORT OF BREATH/WHEEZING Alprazolam (Xanax -) 0.5 mg PO Q8H PRN PRN Reason: ANXIETY Last Admin: 07/22/16 00:20 Dose: 0.5 mg Amlodipine Besylate (Norvasc -) 10 mg PO DAILY [facility] Brimonidine Tartrate (Alphagan 0.2% -) 1 drop OU DAILY [facility] Dorzolamide HCl (Trusopt 2%) 1 drop OU BID [facility] Last Admin: 07/21/16 21:24 Dose: 1 drop Famotidine/Sodium Chloride (Pepcid 20 Mg Premixed Ivpb -) 50 mls @ 100 mls/hr IVPB BID [facility] Last Admin: 07/21/16 21:24 Dose: 100 mls/hr Potassium Chloride/Sodium Chloride (Ns+20 Meq Kcl -) 1,000 mls @ 83 mls/hr IV ASDIR [facility] Last Admin: 07/21/16 13:06 Dose: 83 mls/hr Ceftriaxone Sodium (Rocephin 1gm Ivpb (Pre-Docked)) 50 mls @ 100 mls/hr IVPB DAILY [facility] Last Admin: 07/21/16 13:05 Dose: 100 mls/hr Insulin Aspart (Novolog Vial Sliding Scale -) 1 vial SQ TIDAC [facility] PRN Reason: Protocol Last Admin: 07/22/16 06:01 Dose: Not Given Latanoprost (Xalatan 0.005% Eye Drops -) 1 drop OU HS [facility] Last Admin: 07/21/16 21:25 Dose: 1 drop Losartan Potassium (Cozaar -) 100 mg PO DAILY [facility] Ondansetron HCl (Zofran Injection) 4 mg IVPB Q6H PRN PRN Reason: NAUSEA Last Admin: 07/22/16 05:52 Dose: 4 mg Pneumococcal 13-Valent Conj Vacc (Prevnar 13 Syringe -) 0.5 ml IM .ONCE ONE Stop: 07/22/16 08:51 Timolol Maleate (Timoptic 0.5%) 1 drop OU DAILY [facility] - Objective Vital Signs: Vital Signs Temperature 97.6 F 07/21/16 18:00 Pulse Rate 93 H 07/21/16 18:00 Respiratory Rate 20 07/21/16 18:00 Blood Pressure 143/75 07/21/16 18:00 O2 Sat by Pulse Oximetry (%) 96 07/21/16 21:00 Constitutional: Yes: Well Nourished, No Distress Eyes: Yes: WNL, Conjunctiva Clear HENT: Yes: WNL, Atraumatic, Normocephalic Neck: Yes: WNL, Supple, Trachea Midline Cardiovascular: Yes: WNL, Regular Rate and Rhythm. No: JVD, Gallop, Murmur Respiratory: Yes: Regular, Rales Gastrointestinal: Yes: WNL, Normal Bowel Sounds, Soft Genitourinary: Yes: WNL. No: Anuria, Bladder Distention Musculoskeletal: Yes: WNL, Back Pain. No: Joint Stiffness, Joint Swelling Extremities: Yes: WNL. No: Calf Tenderness Edema: No Peripheral Pulses WNL: Yes Neurological: Yes: WNL, Alert, Oriented ...Motor Strength: WNL, LUE, RUE, RLE Labs: CBC, BMP 07/22/16 06:20 07/22/16 06:20 INR, PTT INR 0.94 (0.82-1.09) 07/21/16 04:15 Problem List - Problems (1) Diarrhea Assessment/Plan: Improved , patient Present with Diarrhea watery, 4-5 times with nausea and vomiting , no recent stool WBC, C Diff are ending. IV Hydration. Code(s): R19.7 - DIARRHEA, UNSPECIFIED (2) Dehydration Assessment/Plan: Improved was Due to diarrhea DC IV Hydration Code(s): E86.0 - DEHYDRATION (3) Hypokalemia Assessment/Plan: resolved Code(s): E87.6 - HYPOKALEMIA (4) Epigastric discomfort Assessment/Plan: Imprived switch to PO Ranitidine advance diet Lipase level is normal and LFTs are normal, cont Zofran and Ranitidine. Code(s): R10.13 - EPIGASTRIC PAIN (5) T2DM (type 2 diabetes mellitus) Assessment/Plan: Episode of Hypoglycemia, Dc mix 70/30 add Levimir 8 unit at bed time,n with correction dose humalog. Code(s): E11.9 - TYPE 2 DIABETES MELLITUS WITHOUT COMPLICATIONS (6) H/O: HTN (hypertension) Assessment/Plan: Cont Home Medications at present BP is well controlled. Code(s): Z86.79 - PERSONAL HISTORY OF OTHER DISEASES OF THE CIRCULATORY SYSTEM (7) Chronic back pain Code(s): M54.9 - DORSALGIA, UNSPECIFIED G89.29 - OTHER CHRONIC PAIN (8) UTI (urinary tract infection) Assessment/Plan: Urine Sghows WBC 32, LE abd pain on Ceftriaxone, U Culture blood culture are pending Code(s): N39.0 - URINARY TRACT INFECTION, SITE NOT SPECIFIED (9) Encounter for smoking cessation counseling Code(s): Z71.6 - TOBACCO ABUSE COUNSELING Z72.0 - TOBACCO USE
[2016-07-22] MEDS ORDERED: PATIENT'S OWN MEDICATION (NON-FORMULARY) (Brimonidine Tartrate/Timolol [Combigan 0.2%-0.5% OU SCH (10:00)
[2016-07-22] MEDS: CEFTRIAXONE 50 ML IVPB SCH ×2 (10:06→14:00)
[2016-07-22] MEDS: amLODIPine BESYLATE 10 MG TABLET (FP) PO SCH (10:13)
[2016-07-22] MEDS: LOSARTAN POTASSIUM 50 MG TABLET (FP) PO SCH (10:14)
[2016-07-22] MEDS ORDERED: guaiFENesin/D-M SUGAR-FREE/ACLHOL-FREE 118 ML BOTTLE PO PRN (10:16)
[2016-07-22] MEDS: TIMOLOL 0.5% OPHTHALMIC SOL 5 ML BOTTLE OU SCH (10:17)
[2016-07-22] MEDS: DORZOLAMIDE 2% HCL OPHTHALMIC SOLUTION 10 ML BOTTLE OU SCH ×2 (10:17→22:45)
[2016-07-22] MEDS: BRIMONIDINE TARTRATE 0.2% OPHTHALMIC 5 ML BOTTLE OU SCH (10:18)
[2016-07-22] MEDS ORDERED: INSULIN (NOVOLOG) ASPART 100 UNITS/ML 10ML VIAL ONE (11:22)
[2016-07-22] MEDS: NICOTINE 7 MG/24 HOURS TOPICAL PATCH TD SCH (11:35)
[2016-07-22] MEDS: RANITIDINE HCL 150 MG TABLET (FP) PO SCH (11:36)
[2016-07-22] MEDS: FLUTICASONE/SALMETEROL 100 MCG/50 MCG DISKUS IH SCH ×2 (12:50→22:35)
[2016-07-22] MEDS ORDERED: MAG HYDROX/AL HYDROX/SIMETH 30 ML UNIT-DOSE CUP PO PRN (20:13)
[2016-07-22] MEDS ORDERED: INSULIN DETEMIR 100 UNITS/ML MDV SQ SCH (22:00)
[2016-07-22] MEDS: LATANOPROST 0.005% OPHTH SOLN 2.5ML BOTTLE OU SCH (22:35)
[2016-07-23] MEDS: ALPRAZolam 0.25 MG TABLET PO PRN (04:01)
[2016-07-23] MEDS: ACETAMINOPHEN WITH CODEINE 300MG/30MG TABLET PO SCH ×2 (06:00→13:17)
[2016-07-23] MEDS: INSULIN SLIDING SCALE (NOVOLOG) 1 VIAL SQ SCH ×2 (06:02→11:59)
[2016-07-23 07:43] LABS: BASOPHIL 1.7 % (0-2.0); EOSINOPHIL 3.1 % (0-4.5); MCH 30.8 pg (25.7-33.7); MCHC 33.4 g/dl (32.0-36.0); MEAN CELL VOLUME 92.5 fl (80-96); MEAN PLT VOLUME 8.8 fl (7.5-11.1); NEUTROPHILS 64.1 % (42.8-82.8); PLATELET COUNT 367 K/MM3 (134-434); RDW 13.4 % (11.6-15.6); WHITE BLOOD COUNT 11.2 K/mm3 (4.0-10.0)
[2016-07-23 08:06] LABS: ALBUMIN 2.4 g/dl (3.4-5.0); CALCIUM 8.2 mg/dL (8.5-10.1)
[2016-07-23 08:11] LABS: ALK PHOS 95 U/L (45-117); ANION GAP 9 (8-16); BILIRUBIN,TOTAL 0.4 mg/dL (0.2-1.0); CO2 27 mmol/L (21-32); COCKROFT - GAULT 35.1135; CREATININE 0.9 mg/dL (0.55-1.02); GLUCOSE,RANDOM 126 mg/dL (74-106); SGOT/AST 13 U/L (15-37); SGPT/ALT 11 U/L (12-78)
--- NOTE | 2016-07-23 09:16 | DS ---
Physical Examination Vital Signs: Vital Signs Temperature 97.3 F L 07/23/16 06:38 Pulse Rate 70 07/23/16 06:38 Respiratory Rate 20 07/23/16 06:38 Blood Pressure 138/57 07/23/16 06:38 O2 Sat by Pulse Oximetry (%) 94 L 07/22/16 09:00 Findings/Remarks: Admitted with abdominal pain diarrhea and cough X ray chest neg ,urine no growth Constitutional: Yes: No Distress Eyes: Yes: WNL HENT: Yes: WNL Neck: Yes: WNL Cardiovascular: Yes: WNL Respiratory: Yes: WNL Gastrointestinal: Yes: WNL ...Rectal Exam: Yes: Deferred Renal/: Yes: WNL Musculoskeletal: Yes: Joint Stiffness Edema: No Peripheral Pulses WNL: Yes Neurological: Yes: Alert ...Motor Strength: WNL Psychiatric: Yes: Alert Labs: CBC, BMP 07/23/16 06:45 07/23/16 06:45 Discharge Summary Reason For Visit: SINUS TACHYCARDIA/VOMITING/DIARRHEA Current Active Problems Chronic back pain (Acute) Dehydration (Acute) Diarrhea (Acute) Encounter for smoking cessation counseling (Acute) H/O: HTN (hypertension) (Acute) Hypokalemia (Acute) Sinus tachycardia (Acute) T2DM (type 2 diabetes mellitus) (Acute) UTI (urinary tract infection) (Acute) Vomiting (Acute) - Home Medications Comprehensive Discharge Medication List: Ambulatory Orders Amlodipine Besylate [Norvasc -] 10 mg PO DAILY 03/22/14 Losartan Potassium 100 mg PO DAILY 03/23/14 Acetaminophen W/ Codeine #3 [Tylenol # 3 -] 1 tab PO TID 04/20/16 Brimonidine Tartrate/Timolol [Combigan Eye Drops] 1 drop OU DAILY 04/20/16 Dorzolamide HCl [Trusopt 2%] 1 drop OU BID 04/20/16 Insulin (Novolog 70/30) [Novolog Mix 70/30 Flexpen -] 15 units SQ DAILY Latanoprost 0.005% Eye Drops [Xalatan 0.005% Eye Drops -] 1 drop OU HS 04/20/16 Furosemide [Lasix] PO DAILY 07/22/16 Glipizide 5 mg PO DAILY 07/22/16
[2016-07-23] MEDS ORDERED: PT OWN MED DRAWER 7, Y5N ONE (09:32)
[2016-07-23] MEDS: FLUTICASONE/SALMETEROL 100 MCG/50 MCG DISKUS IH SCH (09:34)
[2016-07-23] MEDS: RANITIDINE HCL 150 MG TABLET (FP) PO SCH (09:35)
[2016-07-23] MEDS: LOSARTAN POTASSIUM 50 MG TABLET (FP) PO SCH (09:35)
[2016-07-23] MEDS: amLODIPine BESYLATE 10 MG TABLET (FP) PO SCH (09:35)
[2016-07-23] MEDS: NICOTINE 7 MG/24 HOURS TOPICAL PATCH TD SCH (09:35)
[2016-07-23] MEDS: BRIMONIDINE TARTRATE 0.2% OPHTHALMIC 5 ML BOTTLE OU SCH (09:36)
[2016-07-23] MEDS: CEFTRIAXONE 50 ML IVPB SCH (09:36)
[2016-07-23] MEDS: DORZOLAMIDE 2% HCL OPHTHALMIC SOLUTION 10 ML BOTTLE OU SCH (09:37)
[2016-07-23] MEDS: TIMOLOL 0.5% OPHTHALMIC SOL 5 ML BOTTLE OU SCH (09:37)
[2016-07-23] MEDS ORDERED: INSULIN (NOVOLOG) ASPART 100 UNITS/ML 10ML VIAL ONE (11:57)
[2016-07-23 15:09] VITALS: BP 126/63; PULSE 78; TEMP 98
== END 2016-07-23 15:21 | disposition home or self-care (01) | DRG 690 ==
LOC: JER 04:09 → JERBED 06:30 → J5S 08:47
PROVIDERS: ADMIT Internal Medicine; ATTEND Internal Medicine
DX: N39.0 Urinary tract infection, site not specified (principal); E86.0 Dehydration; E87.6 Hypokalemia; R10.13 Epigastric pain; E11.9 Type 2 diabetes mellitus without complications; M54.9 Dorsalgia, unspecified; G89.29 Other chronic pain; Z72.0 Tobacco use; J44.9 Chronic obstructive pulmonary disease, unspecified; F41.9 Anxiety disorder, unspecified; R00.0 Tachycardia, unspecified; R19.7 Diarrhea, unspecified
CPT/HCPCS: 36415; 71010-TC; 80053; 81003; 81015; 82550; 83690; 83735; 84484; 85025; 85610; 87040; 87086; 87186; 93005; 93010; 99284-25

== ENCOUNTER 2016-07-26 09:09 | Inpatient (IN) | payer OTHER ==
--- NOTE | 2016-07-26 09:25 | PDOC ---
History of Present Illness - History of Present Illness Initial Comments: 07/26/16 09:42 The patient is a 80 year old female, with a significant past medical history of hypertension, diabetes, COPD, anxiety, and chronic low back pain, who presents to the emergency department [facility] for revisit with persistent diarrhea, nausea, vomiting, and abdominal pain s/p discharge from the hospital on 07/23/16 for UTI with similar symptoms. She states she has been taking her antibiotics as prescribed to her at her discharge for her UTI. She reports her symptoms have been constant and increasingly worsening since her discharge. She states she is unable to drink water without having to move her bowels. She reports her stool is brown and loose. She denies noticing any blood in her stool. She denies black stools. She reports she has been nauseous today, causing her to gag and produce sputum, however, she denies any episodes of emesis today. She states she has been taking pepto bismol with no alleviation of her symptoms. She reports her abdominal pain as cramping localized to her periumbilical region and alleviated slightly after a bowel movement. She denies chest pain, shortness of breath, headache and dizziness. She denies fever, chills, diarrhea and constipation. She denies dysuria, frequency, urgency and hematuria. Allergies: NKDA Social history: Tobacco use (2-3 cigarettes daily). Pt denies alcohol and illicit drug use PCP - Dr. Margareth Manzo <Jammie Yarbrough - Last Filed: 07/26/16 10:03> <Mariana Escobar - Last Filed: 08/09/16 11:51> - General Chief Complaint: Vomiting/Diarrhea Stated Complaint: ABDOMINAL PAIN Time Seen by Provider: 07/26/16 09:19 Past History <Jammie Yarbrough - Last Filed: 07/26/16 10:03> - Past Medical History Anemia: No Asthma: No Cancer: No Cardiac Disorders: No CVA: No COPD: No CHF: No Dementia: No Diabetes: Yes GI Disorders: No Disorders: No HTN: Yes Hypercholesterolemia: Yes Liver Disease: No Seizures: No Thyroid Disease: No - Surgical History Appendectomy: No Cardiac Surgery: No Cholecystectomy: No Lung Surgery: No Neurologic Surgery: Yes (SURGERY FOR HERNIATED RISK) Orthopedic Surgery: Yes (BACK SURGERY) - Immunization History Immunization Up to Date: No - Psycho/Social/Smoking Cessation Hx Anxiety: No Suicidal Ideation: No Smoking History: Former smoker Have you smoked in the past 12 months: Yes Number of Cigarettes Smoked Daily: 3 Information on smoking cessation initiated: No 'Breaking Loose' booklet given: 04/20/16 Hx Alcohol Use: No Drug/Substance Use Hx: No Substance Use Type: None Hx Substance Use Treatment: No <Mariana Escobar - Last Filed: 08/09/16 11:51> - Past Medical History Allergies/Adverse Reactions: Allergies Allergy/AdvReac Type Severity Reaction Status Date / Time No Known Allergies Allergy Verified 07/26/16 09:23 Home Medications: Ambulatory Orders Amlodipine Besylate [Norvasc -] 10 mg PO DAILY 03/22/14 Losartan Potassium 100 mg PO DAILY 03/23/14 Acetaminophen W/ Codeine #3 [Tylenol # 3 -] 1 tab PO TID 04/20/16 Brimonidine Tartrate/Timolol [Combigan Eye Drops] 1 drop OU DAILY 04/20/16 Dorzolamide HCl [Trusopt 2%] 1 drop OU BID 04/20/16 Insulin (Novolog 70/30) [Novolog Mix 70/30 Flexpen -] 15 units SQ DAILY Latanoprost 0.005% Eye Drops [Xalatan 0.005% Eye Drops -] 1 drop OU HS 04/20/16 Furosemide [Lasix] 40 mg PO DAILY 07/22/16 Glipizide 5 mg PO DAILY 07/22/16 Alprazolam [Xanax] 0.5 mg PO DAILY 07/26/16 Review of Systems - Review of Systems Able to Perform ROS?: Yes Comments:: 07/26/16 09:42 GENERAL/CONSTITUTIONAL: (+) No chills and generalized weakness. No fever. HEAD, EYES, EARS, NOSE AND THROAT: No change in vision. No ear pain or discharge. No sore throat. CARDIOVASCULAR: No chest pain or shortness of breath. RESPIRATORY: No cough, wheezing, or hemoptysis. GASTROINTESTINAL: (+) nausea, vomiting, diarrhea, and abdominal cramping. No constipation. GENITOURINARY: No dysuria, frequency, or change in urination. MUSCULOSKELETAL: No joint or muscle swelling or pain. No neck or back pain. SKIN: No rash NEUROLOGIC: No headache, vertigo, loss of consciousness, or change in strength/ sensation. ENDOCRINE: No increased thirst. No abnormal weight change. HEMATOLOGIC/LYMPHATIC: No anemia, easy bleeding, or history of blood clots. ALLERGIC/IMMUNOLOGIC: No hives or skin allergy. <Jammie Yarbrough - Last Filed: 07/26/16 10:03> *Physical Exam - Vital Signs Last Vital Signs Temp Pulse Resp BP Pulse Ox 97.7 F 96 H 17 106/93 100 07/26/16 09:19 07/26/16 09:19 07/26/16 09:19 07/26/16 09:19 07/26/16 09:19 - Physical Exam Comments: 07/26/16 09:47 GENERAL: Awake, alert, and fully oriented, in no acute distress HEAD: No signs of trauma EYES: PERRLA, EOMI, sclera anicteric, conjunctiva clear ENT: Auricles normal inspection, hearing grossly normal, nares patent, oropharynx clear without exudates. Moist mucosa NECK: Normal ROM, supple, no lymphadenopathy, JVD, or masses LUNGS: Breath sounds equal, No wheezes, No crackles HEART: Regular rate and rhythm, normal S1 and S2, no murmurs, rubs or gallops ABDOMEN: (+) decreased bowel sounds. Soft, nontender. No guarding, no rebound. No masses EXTREMITIES: Normal range of motion, no edema. No clubbing or cyanosis. No cords, erythema, or tenderness NEUROLOGICAL: Cranial nerves II through XII grossly intact. Normal speech, normal gait SKIN: Warm, Dry, normal turgor, no rashes or lesions noted. <Jammie Yarbrough - Last Filed: 07/26/16 10:03> - Vital Signs Last Vital Signs Temp Pulse Resp BP Pulse Ox 97.7 F 96 H 17 106/93 100 07/26/16 09:19 07/26/16 09:19 07/26/16 09:19 07/26/16 09:19 07/26/16 09:19 <Mariana Escobar - Last Filed: 08/09/16 11:51> ED Treatment Course - LABORATORY CBC & Chemistry Diagram: 07/26/16 10:10 07/26/16 10:10 <Mariana Escobar - Last Filed: 08/09/16 11:51> *DC/Admit/Observation/Transfer - Attestations Scribe Attestion: 07/26/16 09:49 Documentation prepared by Jammie Yarbrough, acting as director biomedical engineering for Mariana Escobar MD <Jammie Yarbrough - Last Filed: 07/26/16 10:03> - Discharge Dispostion Admit: Yes <Mariana Escobar - Last Filed: 08/09/16 11:51> Diagnosis at time of Disposition: Nausea, vomiting and diarrhea - Discharge Dispostion Disposition: HOME Condition at time of disposition: Improved
[2016-07-26] MEDS ORDERED: ONDANSETRON 4 MG/2 ML VIAL IVPUSH ONE (09:53)
[2016-07-26] MEDS ORDERED: ONDANSETRON 4 MG/2 ML VIAL ONE (09:57)
[2016-07-26] MEDS ORDERED: SODIUM CHLORIDE 500 ML IV STA (10:02)
[2016-07-26 10:54] LABS: URINE APPEARANCE CLEAR; URINE BILIRUBIN NEGATIVE (NEGATIVE); URINE BLOOD NEGATIVE (NEGATIVE); URINE COLOR STRAW; URINE GLUCOSE (UA) 1+ (NEGATIVE); URINE KETONE NEGATIVE (NEGATIVE); URINE NITRITE NEGATIVE (NEGATIVE); URINE PROTEIN NEGATIVE (NEGATIVE); URINE UROBILINOGEN NEGATIVE E.U./dl (0.2-1.0)
[2016-07-26] MEDS ORDERED: LORAZEPAM CARPU-JECT 2 MG/ML DISP.SYRIN IVPUSH ONE (10:56)
[2016-07-26 10:57] LABS: BASOPHIL 1.2 % (0-2.0); EOSINOPHIL 4.4 % (0-4.5); MCH 30.6 pg (25.7-33.7); MCHC 33.2 g/dl (32.0-36.0); MEAN CELL VOLUME 92.1 fl (80-96); MEAN PLT VOLUME 9.2 fl (7.5-11.1); NEUTROPHILS 67.1 % (42.8-82.8); PLATELET COUNT 444 K/MM3 (134-434); RDW 13.9 % (11.6-15.6); WHITE BLOOD COUNT 11.6 K/mm3 (4.0-10.0)
[2016-07-26 10:58] LABS: ALBUMIN 3.2 g/dl (3.4-5.0); ANION GAP 12 (8-16); CALCIUM 9.2 mg/dL (8.5-10.1); CO2 27 mmol/L (21-32); COCKROFT - GAULT 47.3875; CREATININE 0.8 mg/dL (0.55-1.02); GLUCOSE,RANDOM 192 mg/dL (74-106); SGPT/ALT 19 U/L (12-78)
[2016-07-26 10:59] LABS: ALK PHOS 104 U/L (45-117); BILIRUBIN,TOTAL 0.5 mg/dL (0.2-1.0); TOT PROT 7.5 g/dl (6.4-8.2)
[2016-07-26 11:04] LABS: SGOT/AST 29 U/L (15-37)
[2016-07-26 11:16] LABS: URINE LEUK ESTERASE 2+ (NEGATIVE)
[2016-07-26] MEDS ORDERED: LORAZEPAM CARPU-JECT 2 MG/ML DISP.SYRIN ONE (11:26)
[2016-07-26 12:56] LABS: URINE MUCUS RARE; URINE RBC 2 /hpf (0-3); URINE WBC 2 /hpf (3-5)
[2016-07-26 13:52] VITALS: BMI 23.8
--- NOTE | 2016-07-26 16:44 | EKG ---
Test Reason : Blood Pressure : / mmHG Vent. Rate : 090 BPM Atrial Rate : 090 BPM P-R Int : 150 ms QRS Dur : 070 ms QT Int : 378 ms P-R-T Axes : 084 040 094 degrees QTc Int : 462 ms NORMAL SINUS RHYTHM CANNOT RULE OUT ANTERIOR INFARCT (CITED ON OR BEFORE 21-JUL-2016) ABNORMAL ECG WHEN COMPARED WITH ECG OF 21-JUL-2016 04:24, NO SIGNIFICANT CHANGE WAS FOUND Confirmed by WENDY RAYA MD ([id number]) on 07/26/2016 4:44:32 PM Referred By: Confirmed By:WENDY RAYA MD
[2016-07-26] MEDS: ACETAMINOPHEN WITH CODEINE 300MG/30MG TABLET PO SCH ×2 (18:44→22:54)
[2016-07-26] MEDS ORDERED: D5-1/2NS+20 MEQ KCL - 1,000 ML IV SCH (18:45)
[2016-07-26] MEDS ORDERED: ALPRAZolam 0.25 MG TABLET PO SCH (18:45)
[2016-07-26] MEDS ORDERED: INSULIN (NOVOLOG MIX 70/30) 100 UNITS/ML MDV SQ ONE (19:45)
[2016-07-26] MEDS ORDERED: BRIMONIDINE TARTRATE 0.15% OPHTHALMIC 5 ML BOTTLE OU SCH (22:00)
[2016-07-26] MEDS ORDERED: LATANOPROST 0.005% OPHTH SOLN 2.5ML BOTTLE OU SCH (22:00)
[2016-07-26] MEDS: ALBUTEROL SO4 6.7 GM HFA INHALER IH SCH (22:56)
[2016-07-26] MEDS: TIMOLOL 0.5% OPHTHALMIC SOL 5 ML BOTTLE OU SCH (22:57)
[2016-07-27] MEDS: ALPRAZolam 0.25 MG TABLET PO SCH ×2 (03:20→10:06)
[2016-07-27 06:01] VITALS: PULSE 78
[2016-07-27] MEDS: ACETAMINOPHEN WITH CODEINE 300MG/30MG TABLET PO SCH ×2 (06:24→14:59)
[2016-07-27] MEDS: INSULIN (NOVOLOG MIX 70/30) 100 UNITS/ML MDV SQ SCH ×2 (06:38→17:39)
[2016-07-27] MEDS ORDERED: glipiZIDE 5 MG TABLET (FP) PO SCH (07:00)
[2016-07-27] MEDS ORDERED: PT OWN MED DRAWER 7, Y5N ONE (10:00)
[2016-07-27] MEDS ORDERED: amLODIPine BESYLATE 5 MG TABLET (FP) PO SCH (10:00)
[2016-07-27] MEDS ORDERED: amLODIPine BESYLATE 10 MG TABLET (FP) PO SCH (10:00)
[2016-07-27] MEDS ORDERED: LOSARTAN POTASSIUM 50 MG TABLET (FP) PO SCH (10:00)
[2016-07-27] MEDS: ALBUTEROL SO4 6.7 GM HFA INHALER IH SCH (10:07)
[2016-07-27] MEDS: TIMOLOL 0.5% OPHTHALMIC SOL 5 ML BOTTLE OU SCH (10:08)
--- NOTE | 2016-07-27 13:52 | HP ---
She was admitted here recently with UTI, was sent home 2 days ago with p.o. antibiotic, Ceftin. Yesterday, she came back to the emergency room with diarrhea. She was feeling very weak, so was admitted. Today, she is doing okay. She is also known to have hypertension, diabetes, low back pain. PHYSICAL EXAMINATION: Vital signs: BP 130/80, pulse 78, temperature 98. HEENT: Unremarkable. Neck: Supple, no JVD. Lungs: Clear. Heart: S1, S2 normal. No S3 or S4. Abdomen: Soft. Labs noted. MEDICATIONS: Continue her home medications at home. No antibiotics were given. Medications were called to the pharmacy. Other home medications including Tylenol No. 3. FINAL DIAGNOSES: 1. Diarrhea, possibly secondary to p.o. antibiotics. 2. Hypertension. 3. Diabetes. 4. Back pain. PLAN: I will see her next week in the office. ALICJA FARAH M.D. [id number]
[2016-07-27 14:19] VITALS: BP 125/62; TEMP 97.7
== END 2016-07-27 19:00 | disposition home or self-care (01) | DRG 392 ==
LOC: JER 09:09 → JERBED 12:45 → J7W 14:25
PROVIDERS: ADMIT Internal Medicine; ATTEND Internal Medicine
DX: R10.9 Unspecified abdominal pain (principal); R11.2 Nausea with vomiting, unspecified; I10 Essential (primary) hypertension; J44.9 Chronic obstructive pulmonary disease, unspecified; E11.9 Type 2 diabetes mellitus without complications; Z79.4 Long term (current) use of insulin; M54.9 Dorsalgia, unspecified; Z72.0 Tobacco use; E78.00 Pure hypercholesterolemia, unspecified; R19.7 Diarrhea, unspecified
CPT/HCPCS: 36415; 80053; 81003; 81015; 83690; 85025; 93005; 93010; 99283-25

== ENCOUNTER 2017-01-25 10:40 | Inpatient (IN) | payer OTHER ==
[2017-01-25 10:49] VITALS: BMI 19.5
--- NOTE | 2017-01-25 11:11 | PDOC ---
History of Present Illness - General History Source: Patient Exam Limitations: No Limitations - History of Present Illness Initial Comments: 01/25/17 12:48 Patient is a 81 year old female with a significant past medical history of hypertension, diabetes, COPD, anxiety, Glaucoma and chronic low back pain who was brought by EMS to the ED s/p fall that occurred yesterday afternoon. Patient reports falling yesterday afternoon at 5:30pm, while at home while walking her aid to her front door. She reports tripping on her walker and falling on her left hip resulting in immediate pain her left side. Denies head strike or LOC. Patient states left sided hip pain is rated as an aching, 10/10 pain. Patient reports left hip pain radiates to her groin. She states that she was unable to bear any weight on her left leg immediately after her fall and has been barely able to bear weight on it. She reports using a heat pad and taking tylenol with codeine for pain with no relief. When pain continued overnight, she presented to the ED today. Denies other injuries. Denies swelling, bruising to injured area. Denies chest pain, SOB. Denies nausea, vomiting. Denies fever, chills. Denies any other symptoms. Allergies: Penicillin Social History: Tobacco use (4-5 cigarettes daily since 19yrs old). Pt denies alcohol and illicit drug use Surgical history: Back surgery, Surgery for herniated disk. PMD: Dr. Margareth Manzo. <Lalo Vaca - Last Filed: 01/25/17 12:48> <Leonid Rivers - Last Filed: 01/30/17 16:30> - General Chief Complaint: Injury Stated Complaint: FALL/HEAD PAIN Past History <Lalo Vaca - Last Filed: 01/25/17 12:48> - Past Medical History Anemia: No Asthma: No Cancer: No Cardiac Disorders: No CVA: No COPD: No CHF: No Dementia: No Diabetes: Yes GI Disorders: No Disorders: No HTN: Yes Hypercholesterolemia: Yes Liver Disease: No Seizures: No Thyroid Disease: No - Surgical History Appendectomy: No Cardiac Surgery: No Cholecystectomy: No Lung Surgery: No Neurologic Surgery: Yes (SURGERY FOR HERNIATED DISC.) Orthopedic Surgery: Yes (BACK SURGERY) - Immunization History Immunization Up to Date: No - Suicide/Smoking/Psychosocial Hx Smoking History: Never smoked Have you smoked in the past 12 months: Yes Number of Cigarettes Smoked Daily: 3 'Breaking Loose' booklet given: 04/20/16 Hx Alcohol Use: No Drug/Substance Use Hx: No Substance Use Type: None Hx Substance Use Treatment: No <Leonid Rivers - Last Filed: 01/30/17 16:30> - Past Medical History Allergies/Adverse Reactions: Allergies Allergy/AdvReac Type Severity Reaction Status Date / Time No Known Allergies Allergy Verified 01/25/17 10:43 Home Medications: Ambulatory Orders Amlodipine Besylate [Norvasc -] 10 mg PO DAILY 03/22/14 Losartan Potassium 100 mg PO DAILY 03/23/14 Acetaminophen W/ Codeine #3 [Tylenol # 3 -] 1 tab PO TID 04/20/16 Brimonidine Tartrate/Timolol [Combigan 0.2%-0.5% Eye Drops] 1 drop OU DAILY 06/01 Dorzolamide HCl [Trusopt 2%] 1 drop OU BID 04/20/16 Insulin (Novolog 70/30) [Novolog Mix 70/30 Flexpen -] 8 units SQ DAILY 04/20/16 Latanoprost 0.005% Eye Drops [Xalatan 0.005% Eye Drops -] 1 drop OU HS 04/20/16 Furosemide [Lasix] 40 mg PO DAILY 07/22/16 Alprazolam [Xanax] 0.5 mg PO DAILY 07/26/16 Albuterol Sulfate Inhaler - [Ventolin Hfa Inhaler -] 2 puff IH BID PRN 01/26/17 Glipizide 5 mg PO DAILY 01/26/17 Omeprazole 20 mg PO DAILY 01/26/17 Acetaminophen W/ Codeine #3 [Tylenol # 3 -] 2 tab PO Q6H PRN tab.sl MDD 8 01/28 Albuterol Sulfate Inhaler - [Ventolin HFA Inhaler -] 2 puff IH BID PRN inhaler 01/28/17 Alprazolam [Xanax] 0.5 mg PO BID PRN tablet MDD 1mg 01/28/17 Amlodipine Besylate [Norvasc -] 10 mg PO DAILY tablet 01/28/17 Dorzolamide HCl [Trusopt 2% -] 1 drop OU BID drops 01/28/17 Furosemide [Lasix -] 40 mg PO DAILY tablet 01/28/17 Heparin - 5,000 unit SQ BID vial 01/28/17 Insulin (Novolog 70/30) [Novolog Mix 70/30 Vial -] 8 units SQ ACBK vial Latanoprost 0.005% Eye Drops [Xalatan 0.005% Eye Drops -] 1 drop OU HS drops Losartan Potassium [Cozaar -] 100 mg PO DAILY tablet 01/28/17 Mag Hydrox/Al Hydrox/Simeth [Mylanta Oral Suspension -] 30 ml PO Q6HPO PRN cup 01/28/17 Pantoprazole Sodium [Protonix -] 20 mg PO DAILY tablet.ec 01/28/17 Review of Systems - Review of Systems Able to Perform ROS?: Yes Comments:: 01/25/17 12:49 GENERAL/CONSTITUTIONAL: No fever or chills. No weakness. HEAD, EYES, EARS, NOSE AND THROAT: No change in vision. No ear pain or discharge. No sore throat. GASTROINTESTINAL: No nausea, vomiting, diarrhea or constipation. GENITOURINARY: No dysuria, frequency, or change in urination. CARDIOVASCULAR: No chest pain or shortness of breath. RESPIRATORY: No cough, wheezing, or hemoptysis. MUSCULOSKELETAL: +Left sided hip pain. No joint or muscle swelling. No neck SKIN: No rash NEUROLOGIC: No headache, vertigo, loss of consciousness, or change in strength/ sensation. ENDOCRINE: No increased thirst. No abnormal weight change. HEMATOLOGIC/LYMPHATIC: No anemia, easy bleeding, or history of blood clots. ALLERGIC/IMMUNOLOGIC: No hives or skin allergy. All Other Systems: Reviewed and Negative <Lalo Vaca - Last Filed: 01/25/17 12:48> *Physical Exam - Vital Signs Last Vital Signs Temp Pulse Resp BP Pulse Ox 98.7 F 71 18 116/56 98 01/25/17 10:43 01/25/17 10:43 01/25/17 10:43 01/25/17 10:43 01/25/17 10:43 - Physical Exam Comments: 01/25/17 12:49 GENERAL: Awake, alert, and fully oriented, in no acute distress HEAD: No signs of trauma EYES: PERRLA, EOMI, sclera anicteric, conjunctiva clear ENT: Auricles normal inspection, hearing grossly normal, nares patent, oropharynx clear without exudates. Moist mucosa NECK: Normal ROM, supple, no lymphadenopathy, JVD, or masses LUNGS: Breath sounds equal, clear to auscultation bilaterally. No wheezes, and no crackles HEART: Regular rate and rhythm, normal S1 and S2, no murmurs, rubs or gallops ABDOMEN: Soft, nontender, normoactive bowel sounds. No guarding, no rebound. No masses EXTREMITIES: +Significant tenderness to palpation when palpating left hip. + Left lower extremity short and internally rotated. 2+ DP pulse on doppler. Remainder of extremities with full ROM, no edema. No clubbing or cyanosis. No cords, erythema NEUROLOGICAL: Normal speech, cranial nerves intact, negative pronator drift, normal sensation to light touch in all 4 extremities, normal cerebellar exam, normal reflexes and tone SKIN: Warm, Dry, normal turgor, no rashes or lesions noted <Lalo Vaca - Last Filed: 01/25/17 12:48> - Vital Signs Last Vital Signs Temp Pulse Resp BP Pulse Ox 98.7 F 71 18 116/56 98 01/25/17 10:43 01/25/17 10:43 01/25/17 10:43 01/25/17 10:43 01/25/17 10:43 <Leonid Rivers - Last Filed: 01/30/17 16:30> ED Treatment Course - LABORATORY CBC & Chemistry Diagram: 01/25/17 12:10 01/25/17 12:10 - ADDITIONAL ORDERS Additional order review: 01/25/17 12:10 RBC 4.31 MCV 90.1 MCHC 32.4 RDW 12.8 MPV 9.5 Neutrophils % 71.3 Lymphocytes % 16.4 Monocytes % 7.5 Eosinophils % 3.5 Basophils % 1.3 - Medications Given in the ED: ED Medications Discontinued Medications Generic Name Dose Route Start Last Admin Trade Name Freq PRN Reason Stop Dose Admin Morphine Sulfate 2 mg 01/25/17 11:56 01/25/17 12:31 Morphine Injection - IVPUSH 01/25/17 11:57 2 mg ONCE ONE Administration <Lalo Vaca - Last Filed: 01/25/17 12:48> - LABORATORY CBC & Chemistry Diagram: 01/28/17 06:20 01/28/17 06:20 <Leonid Rivers - Last Filed: 01/30/17 16:30> Medical Decision Making - Medical Decision Making 01/25/17 17:05 81-year-old female with multiple medical problems presents with left hip pain after a fall yesterday. Patient reports that she was able to bear weight on the leg yesterday but is having difficulty today. Vitals are unremarkable. On exam patient able to range lower extremity at the hip but with significant pain in the groin area. Lower extremity also appears slightly short and internally rotated. Differential includes left hip dislocation versus hip/pelvis fracture. X-ray of pelvis, hip, and femur are negative however patient continues to complain of significant pain. CTs are pending for further evaluation. -f/u CT -pain control -pt signed out to evening attending for further eval and management. <Leonid Rivers - Last Filed: 01/30/17 16:30> *DC/Admit/Observation/Transfer - Attestations Scribe Attestion: 01/25/17 12:49 Documentation prepared by Lalo Vaca, acting as manager medical affairs for Leonid Rivers MD. <Lalo Vaca - Last Filed: 01/25/17 12:48> - Attestations Physician Attestion: 01/30/17 16:30 I, Dr. Leonid Rivers MD, attest that this document has been prepared under my direction and personally reviewed by me in its entirety. I further attest, that it accurately reflects all work, treatment, procedures and medical decision -making performed by me. <Leonid Rivers - Last Filed: 01/30/17 16:30> Diagnosis at time of Disposition: Closed fracture of pubic ramus Qualifiers: Encounter type: initial encounter Laterality: left Qualified Code(s): S32.592A - Other specified fracture of left pubis, initial encounter for closed fracture - Discharge Dispostion Disposition: [facility] FAC[facility] Condition at time of disposition: Fair
[2017-01-25] MEDS ORDERED: morphine CARPU-JECT 2 MG/1 ML DISP.SYRIN IVPUSH ONE (11:56)
[2017-01-25] MEDS ORDERED: morphine SULFATE 4 MG/ML VIAL ONE (12:25)
[2017-01-25 12:35] LABS: BASOPHIL 1.3 % (0-2.0); EOSINOPHIL 3.5 % (0-4.5); MCH 29.1 pg (25.7-33.7); MCHC 32.4 g/dl (32.0-36.0); MEAN CELL VOLUME 90.1 fl (80-96); MEAN PLT VOLUME 9.5 fl (7.5-11.1); NEUTROPHILS 71.3 % (42.8-82.8); PLATELET COUNT 233 K/MM3 (134-434); RDW 12.8 % (11.6-15.6); WHITE BLOOD COUNT 11.3 K/mm3 (4.0-10.0)
[2017-01-25 12:46] LABS: INR 0.91 (0.82-1.09); PROTHROMBIN TIME (PATIENT) 10.3 SEC (9.98-11.88)
[2017-01-25 12:49] LABS: ACTIVATED PTT 37.4 SECONDS (26.9-34.4)
[2017-01-25 13:00] LABS: ALBUMIN 3.5 g/dl (3.4-5.0); ALK PHOS 110 U/L (45-117); ANION GAP 6 (8-16); BILIRUBIN,TOTAL 0.4 mg/dL (0.2-1.0); CALCIUM 8.8 mg/dL (8.5-10.1); CO2 31 mmol/L (21-32); CREATININE 1.1 mg/dL (0.55-1.02); GLUCOSE,RANDOM 125 mg/dL (74-106); SGOT/AST 14 U/L (15-37); SGPT/ALT 19 U/L (12-78); TOT PROT 7.1 g/dl (6.4-8.2)
[2017-01-25 14:02] LABS: URINE APPEARANCE CLEAR; URINE BILIRUBIN NEGATIVE (NEGATIVE); URINE BLOOD NEGATIVE (NEGATIVE); URINE COLOR STRAW; URINE GLUCOSE (UA) NEGATIVE (NEGATIVE); URINE KETONE NEGATIVE (NEGATIVE); URINE NITRITE NEGATIVE (NEGATIVE); URINE PROTEIN NEGATIVE (NEGATIVE); URINE UROBILINOGEN NEGATIVE mg/dL (0.2-1.0)
[2017-01-25] MEDS ORDERED: ACETAMINOPHEN INJECTION 100 ML IVPB ONE (17:33)
[2017-01-25] MEDS ORDERED: ACETAMINOPHEN 1000 MG/100 ML VIAL (NON FORMULARY) IVPB ONE (17:34)
[2017-01-25 18:01] LABS: URINE LEUK ESTERASE 2+ (NEGATIVE)
--- NOTE | 2017-01-25 19:13 | PDOC ---
*Physical Exam - Vital Signs Last Vital Signs Temp Pulse Resp BP Pulse Ox 98.2 F 84 19 127/63 98 01/25/17 18:28 01/25/17 18:31 01/25/17 18:31 01/25/17 18:31 01/25/17 18:31 - Physical Exam Comments: 01/25/17 19:12 Patient endorsed to me by . Patient is an 81-year-old female who presented with atraumatic injury to the left hip and pelvis. CT of pelvis reveals a minimally displaced fracture of the superior pubic ramus. Patient will require admission for pain control, orthopedic consultation and the placement and rehabilitation. Dr. Leija informed. ED Treatment Course - LABORATORY CBC & Chemistry Diagram: 01/25/17 12:10 01/25/17 12:10 - ADDITIONAL ORDERS Additional order review: Laboratory Results 01/25/17 01/25/17 01/25/17 13:53 12:10 12:10 PT with INR 10.30 INR 0.91 PTT (Actin FS) 37.4 H Sodium 140 Potassium 3.9 Chloride 103 Carbon Dioxide 31 Anion Gap 6 L BUN 22 H D Creatinine 1.1 H D Creat Clearance w eGFR 47.55 Random Glucose 125 H D Calcium 8.8 Total Bilirubin 0.4 AST 14 L D ALT 19 Alkaline Phosphatase 110 Total Protein 7.1 Albumin 3.5 Urine Color Straw Urine Appearance Clear Urine pH 6.0 Ur Specific [place] 1.006 Urine Protein Negative Urine Glucose (UA) Negative Urine Ketones Negative Urine Blood Negative Urine Nitrite Negative Urine Bilirubin Negative Urine Urobilinogen Negative Ur Leukocyte Esterase 2+ H Blood Type Antibody Screen 01/25/17 12:10 PT with INR INR PTT (Actin FS) Sodium Potassium Chloride Carbon Dioxide Anion Gap BUN Creatinine Creat Clearance w eGFR Random Glucose Calcium Total Bilirubin AST ALT Alkaline Phosphatase Total Protein Albumin Urine Color Urine Appearance Urine pH Ur Specific [place] Urine Protein Urine Glucose (UA) Urine Ketones Urine Blood Urine Nitrite Urine Bilirubin Urine Urobilinogen Ur Leukocyte Esterase Blood Type O POSITIVE Antibody Screen Negative 01/25/17 12:10 RBC 4.31 MCV 90.1 MCHC 32.4 RDW 12.8 MPV 9.5 Neutrophils % 71.3 Lymphocytes % 16.4 Monocytes % 7.5 Eosinophils % 3.5 Basophils % 1.3 - Medications Given in the ED: ED Medications Discontinued Medications Generic Name Dose Route Start Last Admin Trade Name Freq PRN Reason Stop Dose Admin Acetaminophen 1,000 mg 01/25/17 17:34 01/25/17 17:45 Ofirmev Injection - IVPB 01/25/17 17:35 1,000 mg ONCE ONE Administration Morphine Sulfate 2 mg 01/25/17 11:56 01/25/17 12:31 Morphine Injection - IVPUSH 01/25/17 11:57 2 mg ONCE ONE Administration *DC/Admit/Observation/Transfer Diagnosis at time of Disposition: Closed fracture of pubic ramus Qualifiers: Encounter type: initial encounter Laterality: left Qualified Code(s): S32.592A - Other specified fracture of left pubis, initial encounter for closed fracture - Discharge Dispostion Condition at time of disposition: Fair Admit: Yes - Referrals - Patient Instructions - Post Discharge Activity
[2017-01-25] MEDS ORDERED: DEXTROSE 5%-0.45% SALINE 1,000 ML IV SCH (19:15)
[2017-01-25 19:16] LABS: URINE RBC 0-2 /hpf (0-3)
[2017-01-25 19:19] LABS: URINE BACTERIA FEW /hpf (NEGATIVE)
[2017-01-25] MEDS: DORZOLAMIDE 2% HCL OPHTHALMIC SOLUTION 10 ML BOTTLE OU SCH (21:05)
[2017-01-25] MEDS: LATANOPROST 0.005% OPHTH SOLN 2.5ML BOTTLE OU SCH (21:06)
[2017-01-25] MEDS: ALPRAZolam 0.25 MG TABLET PO SCH (21:06)
[2017-01-25] MEDS: ACETAMINOPHEN WITH CODEINE 300MG/30MG TABLET PO PRN (21:47)
[2017-01-26] MEDS: ACETAMINOPHEN WITH CODEINE 300MG/30MG TABLET PO PRN ×4 (03:37→22:15)
[2017-01-26] MEDS: INSULIN (NOVOLOG MIX 70/30) 100 UNITS/ML MDV SQ SCH ×3 (06:34→06:52)
[2017-01-26] MEDS ORDERED: ALBUTEROL SO4 18 GM HFA INHALER IH PRN (06:45)
--- NOTE | 2017-01-26 09:35 | HP ---
DATE OF ADMISSION: HISTORY: This is an 81-year-old female known to me for many years diagnosed to have hypertension, diabetes, osteoarthritis. She walks at home with a walker. Fell by tripping on the walker and was having pain in the hip area and was brought to the emergency room. The patient had x-ray and CAT scan of the pelvis, which showed a pubic ramus fracture anterior and posterior so has difficulty but admitted. Other than that, she does not have any complaints. PHYSICAL EXAMINATION: General: Today she is awake, alert, and oriented not in distress. Vital Signs: BP 140/80, pulse 72, respirations 20, temperature 98. HEENT: Unremarkable. Neck: Supple. No JVD. Lungs: Clear. Heart: S1, S2 normal. No S3 or S4. Abdomen: Soft. Extremities: Range of motion of the hip is restricted because of pain. Legs, no edema. Neurologic: Normal. LABORATORIES: WBC 11.3, hemoglobin 12.6, hematocrit 38, platelets 233. Electrolytes: Sodium 140, potassium 3.9, chloride 103, CO2 is 31, BUN 22, creatinine 1.1, and blood sugar 125. FINAL DIAGNOSES: 1. Pelvic fracture. 2. Hypertension. 3. Diabetes. 4. Osteoarthritis. PLAN: Orthopaedic consult, Dr. Mcfarlane. Continue her present medications and insulin. Keep increasing her pain medication, Tylenol No. 3 two tablets q.4 hours p.r.n. We will follow. ALICJA FARAH M.D. [id number]
[2017-01-26] MEDS ORDERED: PT OWN MED DRAWER 7, Y5N ONE ×2 (09:45→21:10)
[2017-01-26] MEDS: HEPARIN NA (PORCINE) 5,000 UNITS/ML 1ML VIAL SQ SCH ×3 (09:46→21:13)
[2017-01-26] MEDS: FUROSEMIDE 40 MG TABLET (FP) PO SCH (09:47)
[2017-01-26] MEDS: ALPRAZolam 0.25 MG TABLET PO SCH (09:47)
[2017-01-26] MEDS: DORZOLAMIDE 2% HCL OPHTHALMIC SOLUTION 10 ML BOTTLE OU SCH ×2 (09:47→21:13)
[2017-01-26] MEDS: amLODIPine BESYLATE 10 MG TABLET (FP) PO SCH (09:47)
[2017-01-26] MEDS: LOSARTAN POTASSIUM 50 MG TABLET (FP) PO SCH (09:47)
[2017-01-26] MEDS: PANTOPRAZOLE 20 MG TABLET (FP) PO SCH (09:47)
[2017-01-26] MEDS: MAG HYDROX/AL HYDROX/SIMETH 30 ML UNIT-DOSE CUP PO PRN ×2 (10:31→21:13)
--- NOTE | 2017-01-26 18:26 | CONSULT ---
Consult - text type - Consultation Consultation Note: FULL CONSULT DICTATED IMP: LEFT SUP PUBIC RAMUS FX PLAN: ANALGESICS, PT-WBAT, SNF PLACEMENT
[2017-01-26] MEDS: LATANOPROST 0.005% OPHTH SOLN 2.5ML BOTTLE OU SCH (21:13)
[2017-01-26] MEDS ORDERED: ALPRAZolam 0.25 MG TABLET PO ONE (22:00)
[2017-01-27] MEDS: ACETAMINOPHEN WITH CODEINE 300MG/30MG TABLET PO PRN ×4 (03:38→21:28)
[2017-01-27] MEDS ORDERED: PT OWN MED DRAWER 7, Y5N ONE ×2 (03:43→21:18)
[2017-01-27] MEDS: INSULIN (NOVOLOG MIX 70/30) 100 UNITS/ML MDV SQ SCH (06:52)
[2017-01-27] MEDS: DORZOLAMIDE 2% HCL OPHTHALMIC SOLUTION 10 ML BOTTLE OU SCH ×2 (10:39→21:28)
[2017-01-27] MEDS: ALPRAZolam 0.25 MG TABLET PO SCH (10:40)
[2017-01-27] MEDS: amLODIPine BESYLATE 10 MG TABLET (FP) PO SCH (10:40)
[2017-01-27] MEDS: LOSARTAN POTASSIUM 50 MG TABLET (FP) PO SCH (10:40)
[2017-01-27] MEDS: PANTOPRAZOLE 20 MG TABLET (FP) PO SCH (10:40)
[2017-01-27] MEDS: FUROSEMIDE 40 MG TABLET (FP) PO SCH (10:40)
[2017-01-27] MEDS: HEPARIN NA (PORCINE) 5,000 UNITS/ML 1ML VIAL SQ SCH ×2 (10:41→21:28)
[2017-01-27] MEDS: MAG HYDROX/AL HYDROX/SIMETH 30 ML UNIT-DOSE CUP PO PRN ×2 (11:50→17:58)
--- NOTE | 2017-01-27 12:07 | CONS ---
DATE OF CONSULTATION: 01/26/2017 Patient is an 81-year-old female status post fall, complaining of pain in her left hip and difficulty walking. Negative LOC. Negative lightheadedness, blurry vision, dizziness. Negative slurred speech. PHYSICAL EXAMINATION: She has equal limb lengths. She has significant tenderness over the pubic rami. No tenderness over the ilium, SI joints, sacrum, greater trochanter. Able to straight-leg raise, but with pain. No increased pain with internal or external rotation. Full range of motion of the ankle and toes. Neurovascularly intact. X-rays and CT scan were reviewed, which show a buckle fracture of the left superior pubic ramus. IMPRESSION: Left superior pubic ramus fracture. PLAN: Analgesics, physical therapy with weightbearing a tolerated. Patient lives alone and is 89 years old; will need placement in a short-term nursing facility and we will follow her while she is in the hospital. Chetan [id number]
--- NOTE | 2017-01-27 12:41 | PN ---
Progress Note, Physician Chief Complaint: Still c/o pelvic Pain History of Present Illness: 81 yrs old F with H/O HTn,T@DM, admitted with mechanical fall developed Left Pubic Ramus fracture - Current Medication List Current Medications: Active Medications Acetaminophen/Codeine Phosphate (Tylenol # 3 -) 2 tab PO Q4H PRN PRN Reason: PAIN Last Admin: 01/27/17 08:47 Dose: 2 tab Al Hydroxide/Mg Hydroxide (Mylanta Oral Suspension -) 30 ml PO Q6HPO PRN PRN Reason: INDIGESTION Last Admin: 01/27/17 11:50 Dose: 30 ml Albuterol Sulfate (Ventolin Hfa Inhaler -) 2 puff IH BID PRN PRN Reason: SHORTNESS OF BREATH Last Admin: 01/27/17 03:42 Dose: 2 puff Alprazolam (Xanax -) 0.5 mg PO DAILY [facility] Last Admin: 01/27/17 10:40 Dose: 0.5 mg Amlodipine Besylate (Norvasc -) 10 mg PO DAILY [facility] Last Admin: 01/27/17 10:40 Dose: 10 mg Dorzolamide HCl (Trusopt 2%) 1 drop OU BID [facility] Last Admin: 01/27/17 10:39 Dose: 1 drop Furosemide (Lasix -) 40 mg PO DAILY [facility] Last Admin: 01/27/17 10:40 Dose: 40 mg Heparin Sodium (Porcine) (Heparin -) 5,000 unit SQ BID [facility] Last Admin: 01/27/17 10:41 Dose: 5,000 unit Insulin Aspart (Novolog Mix 70/30 Vial) 8 units SQ ACBK [facility] Last Admin: 01/27/17 06:52 Dose: 8 units Latanoprost (Xalatan 0.005% Eye Drops -) 1 drop OU HS [facility] Last Admin: 01/26/17 21:13 Dose: 1 drop Losartan Potassium (Cozaar -) 100 mg PO DAILY [facility] Last Admin: 01/27/17 10:40 Dose: 100 mg Pantoprazole Sodium (Protonix -) 20 mg PO DAILY [facility] Last Admin: 01/27/17 10:40 Dose: 20 mg - Objective Vital Signs: Vital Signs Temperature 97.6 F 01/27/17 05:41 Pulse Rate 78 01/27/17 05:41 Respiratory Rate 20 01/27/17 05:41 Blood Pressure 140/62 01/27/17 05:41 O2 Sat by Pulse Oximetry (%) 98 01/26/17 21:00 Constitutional: Yes: Well Nourished, No Distress Eyes: Yes: WNL, Conjunctiva Clear HENT: Yes: WNL, Atraumatic, Normocephalic Neck: Yes: WNL, Supple, Trachea Midline Cardiovascular: Yes: WNL, Regular Rate and Rhythm. No: JVD, Gallop, Murmur Respiratory: Yes: Regular, Rales Gastrointestinal: Yes: WNL, Normal Bowel Sounds, Soft Genitourinary: Yes: WNL. No: Anuria, Bladder Distention Musculoskeletal: tenderness Left side of the pelvis Extremities: Yes: WNL. No: Calf Tenderness Edema: No Peripheral Pulses WNL: Yes Neurological: Yes: WNL, Alert, Oriented Motor Strength: WNL, LUE, RUE, RLE Labs: CBC, BMP 01/25/17 12:10 01/25/17 12:10 INR, PTT INR 0.91 (0.82-1.09) 01/25/17 12:10 Problem List - Problems (1) Closed fracture of pubic ramus Assessment/Plan: Bed rest, pain cotrol, ortho and PT evaluation, non weightbearing till cleared by orthopaedics. Code(s): S32.599A - OTH FRACTURE OF UNSP PUBIS, INIT ENCNTR FOR CLOSED FRACTURE Qualifiers: Encounter type: initial encounter Laterality: left Qualified Code(s): S32.592A - Other specified fracture of left pubis, initial encounter for closed fracture (2) H/O: HTN (hypertension) Assessment/Plan: Well controlled cont home meds Code(s): Z86.79 - PERSONAL HISTORY OF OTHER DISEASES OF THE CIRCULATORY SYSTEM (3) T2DM (type 2 diabetes mellitus) Assessment/Plan: Cont current management. Code(s): E11.9 - TYPE 2 DIABETES MELLITUS WITHOUT COMPLICATIONS (4) Fall Assessment/Plan: Mechanical fall F/U PT evaluation. Code(s): W19.XXXA - UNSPECIFIED FALL, INITIAL ENCOUNTER (5) COPD (chronic obstructive pulmonary disease) Assessment/Plan: Stable cont home meds, incentive spirometry. Code(s): J44.9 - CHRONIC OBSTRUCTIVE PULMONARY DISEASE, UNSPECIFIED
[2017-01-27] MEDS: LATANOPROST 0.005% OPHTH SOLN 2.5ML BOTTLE OU SCH (21:28)
[2017-01-28] MEDS: ACETAMINOPHEN WITH CODEINE 300MG/30MG TABLET PO PRN ×3 (01:50→14:56)
[2017-01-28] MEDS: INSULIN (NOVOLOG MIX 70/30) 100 UNITS/ML MDV SQ SCH (06:40)
[2017-01-28 07:47] LABS: BASOPHIL 1.1 % (0-2.0); MCH 29.5 pg (25.7-33.7); MCHC 32.3 g/dl (32.0-36.0); MEAN CELL VOLUME 91.4 fl (80-96); MEAN PLT VOLUME 9.8 fl (7.5-11.1); NEUTROPHILS 50.2 % (42.8-82.8); PLATELET COUNT 242 K/MM3 (134-434); RDW 13.1 % (11.6-15.6); WHITE BLOOD COUNT 10.7 K/mm3 (4.0-10.0)
--- NOTE | 2017-01-28 08:06 | PN ---
Progress Note (short form) - Note Progress Note: Ortho Pt seen and examined s/p left pelvic fx + ttp, decr rom, secondary to pain nvi a/p PT wbat dvt ppx pain control will need snf placement d/w Dr. Bergman
--- NOTE | 2017-01-28 08:54 | DS ---
Physical Examination Vital Signs: Vital Signs Temperature 97.6 F 01/28/17 08:17 Pulse Rate 90 01/28/17 08:17 Respiratory Rate 16 01/28/17 08:17 Blood Pressure 119/62 01/28/17 08:17 O2 Sat by Pulse Oximetry (%) 100 01/28/17 08:25 Findings/Remarks: Admitted with pelvic fracture ,evaluated by ortho advised bed rest 3-4 weeks Will transfer to [facility] Constitutional: Yes: No Distress Eyes: Yes: WNL HENT: Yes: WNL Neck: Yes: WNL Cardiovascular: Yes: WNL Respiratory: Yes: WNL Gastrointestinal: Yes: WNL ...Rectal Exam: Yes: Deferred Renal/: Yes: WNL Musculoskeletal: Yes: Muscle Weakness Extremities: Yes: WNL Edema: No Integumentary: Yes: WNL Neurological: Yes: Alert Psychiatric: Yes: Alert Labs: CBC, BMP 01/28/17 06:20 Discharge Summary Reason For Visit: FALL INJURY Current Active Problems Closed fracture of pubic ramus (Acute) Fall (Acute) Condition: Fair - Instructions Referrals: Margareth Manzo MD [Primary Care Provider] - - Home Medications Comprehensive Discharge Medication List: Ambulatory Orders Amlodipine Besylate [Norvasc -] 10 mg PO DAILY 03/22/14 Losartan Potassium 100 mg PO DAILY 03/23/14 Acetaminophen W/ Codeine #3 [Tylenol # 3 -] 1 tab PO TID 04/20/16 Brimonidine Tartrate/Timolol [Combigan Eye Drops] 1 drop OU DAILY 04/20/16 Dorzolamide HCl [Trusopt 2%] 1 drop OU BID 04/20/16 Insulin (Novolog 70/30) [Novolog Mix 70/30 Flexpen -] 8 units SQ DAILY 04/20/16 Latanoprost 0.005% Eye Drops [Xalatan 0.005% Eye Drops -] 1 drop OU HS 04/20/16 Furosemide [Lasix] 40 mg PO DAILY 07/22/16 Alprazolam [Xanax] 0.5 mg PO DAILY 07/26/16 Albuterol Sulfate Inhaler - [Ventolin Hfa Inhaler -] 2 puff IH BID PRN 01/26/17 Glipizide 5 mg PO DAILY 01/26/17 Omeprazole 20 mg PO DAILY 01/26/17
[2017-01-28 09:21] LABS: ANION GAP 7 (8-16); CALCIUM 8.4 mg/dL (8.5-10.1); CO2 29 mmol/L (21-32); GLUCOSE,RANDOM 119 mg/dL (74-106)
[2017-01-28 09:26] LABS: ALK PHOS 98 U/L (45-117); BILIRUBIN,TOTAL 0.3 mg/dL (0.2-1.0); CREATININE 1.1 mg/dL (0.55-1.02); SGOT/AST 14 U/L (15-37); SGPT/ALT 15 U/L (12-78); TOT PROT 6.3 g/dl (6.4-8.2)
[2017-01-28] MEDS ORDERED: PT OWN MED DRAWER 7, Y5N ONE (09:29)
[2017-01-28] MEDS: HEPARIN NA (PORCINE) 5,000 UNITS/ML 1ML VIAL SQ SCH (09:31)
[2017-01-28] MEDS: PANTOPRAZOLE 20 MG TABLET (FP) PO SCH (09:40)
[2017-01-28] MEDS: DORZOLAMIDE 2% HCL OPHTHALMIC SOLUTION 10 ML BOTTLE OU SCH (09:40)
[2017-01-28] MEDS: amLODIPine BESYLATE 10 MG TABLET (FP) PO SCH (09:41)
[2017-01-28] MEDS: ALPRAZolam 0.25 MG TABLET PO SCH (10:56)
[2017-01-28] MEDS: FUROSEMIDE 40 MG TABLET (FP) PO SCH (10:57)
[2017-01-28] MEDS: LOSARTAN POTASSIUM 50 MG TABLET (FP) PO SCH (10:57)
--- NOTE | 2017-01-28 13:30 | CONSULT ---
Admitting History and Physical - Primary Care Physician PCP: Margareth Manzo - Admission History of Present Illness: Selected Entries 01/27/17 01/27/17 01/27/17 05:41 09:00 10:39 Breakfast 75% Lunch Supper Temperature 97.6 F 98 F 01/27/17 01/27/17 01/27/17 15:00 18:04 20:36 Breakfast Lunch 75% Supper 75% Temperature 97.5 F L 98.3 F 01/28/17 01/28/17 06:00 08:17 Breakfast Lunch Supper Temperature 97.9 F 97.6 F Laboratory Tests 01/25/17 01/28/17 12:10 06:20 WBC 11.3 H 10.7 H Pt reports solids and pills sticking intermittently. She has upper GI "indigestion" with pressure/needing to belc with po intake intermittently. Sghe reports h/o reflux and was scoped by Dr. Restrepo about a year ago.She is on Protonix. She is pending transfer to [facility]. History Source: Patient Limitations to Obtaining History: No Limitations - Past Medical History Cardiovascular: Yes: HTN Musculoskeletal: Yes: Chronic low back pain Endocrine: Yes: Diabetes Mellitus - Smoking History Smoking history: Former smoker Have you smoked in the past 12 months: Yes Aproximately how many cigarettes per day: 3 - Alcohol/Substance Use Hx Alcohol Use: No - Social History ADL: Independent History of Recent Travel: No History - Admission Reason For Visit: FALL INJURY - Diagnostics X-ray: Report Reviewed Other: Report Reviewed (03/2014- soft tissue neck-dilated esophagus with debris chest CT (-)) - General Mental Status: Alert and Oriented, Awake and Alert, Able to Follow Commands Attention: Intact Ability to Follow Directions: Excellent Head/Neck Control: WFL - Hearing Hearing: Normal Hearing Aide: No With Patient: No Speech Evaluation - Communication Primary Language: M[place] Communication: Yes: Within Normal Limits Oral Expression Ability: Yes: No Impairment - Speech Production Able to Make Needs Known: Yes: WNL Intelligibility: Yes: WNL - Speech Characteristics Voice Loudness: Normal Voice Pitch: Yes: Normal Voice Phonatory-based Quality: Yes: Normal Speech Pattern: Normal Speech Clarity: < 100% Nasal Resonance: Normal Rate of Speech: Intact - Language/Auditory Comprehension Follows: Yes: 2 Stage Simple Commands - Language/Verbal Expression Able to Respond to Simple Queries: Yes: WNL Able to Communicate Wants and Needs: Yes: WNL Functional Communication Status: Yes: WNL - Memory/Perception jail Memory: Yes: WNL Short Term Memory: Yes: WNL - Swallow Evaluation/Bedside Assessment Current Nutritional Intake: Regular, Thin Liquids Oral Secretions: Yes: WFL Dentition: Yes: Dental Appliance Upper, Dental Appliance Lower Facial Symmetry at Rest: Symmetrical Facial Symmetry on Retraction: Symmetrical Facial Movement: Controlled Sensation: Normal Against Resistance Opening: Normal Against Resistance Closing: Normal Pucker Lips: Normal Smile: Normal Lingual Movement: Normal, Symmetric Lingual Speed of Movement: Normal Lingual Movement Strgth Against Opposition: Normal Lingual Movement Characteristics: Normal Velopharyngeal Movement: Normal Laryngeal Elevation: WFL Laryngeal Movement: Able to Palpate Rate of Intake: WFL Bolus Size: WFL Chewing: WFL Oral Prep Time: WFL A-P Transit: WFL Pocketing: None Timing of Swallow: WFL Coughing/Throat Clear: No Change in Voice: No Recommendations - Speech Evaluation, Impression/Plan Impression: r/o GERD/Esophageal dysphagia - Disposition Discharge to: [facility] - Dysphagia Impressions/Plan Dysphagia Treatment Plan: Elevate HOB during feed, OOB for meals, OOB for 1 h. after meals, Other (GERD precautions.) Recommendations: GI Consult (f/u can be done as out pt.) - Recommendations Diet Consistency: Regular Medication Administration: Crushed with applesauce Liquids: Thin Liquids
[2017-01-28 14:56] VITALS: BP 126/54; PULSE 83; TEMP 98.3
== END 2017-01-28 18:03 | DRG 536 ==
LOC: JER 10:40 → JERBED 16:17 → OBSVTOIN 19:13 → J6S 19:35
PROVIDERS: ADMIT Internal Medicine; ATTEND Internal Medicine
DX: S32.502A Unspecified fracture of left pubis, initial encounter for closed fracture (principal); E11.9 Type 2 diabetes mellitus without complications; J44.9 Chronic obstructive pulmonary disease, unspecified; F41.9 Anxiety disorder, unspecified; H40.9 Unspecified glaucoma; I10 Essential (primary) hypertension; M54.5 Low back pain; Z87.891 Personal history of nicotine dependence; Z88.0 Allergy status to penicillin; W01.0XXA Fall on same level from slipping, tripping and stumbling without subsequent striking against object, initial encounter; Y93.89 Activity, other specified; Y92.098 Other place in other non-institutional residence as the place of occurrence of the external cause; Y99.8 Other external cause status; Z79.4 Long term (current) use of insulin
CPT/HCPCS: 36415; 71020-TC; 72192-TC; 73523-TC; 73552-TC-LT; 73700-TC-RT; 80053; 81003; 81015; 83036; 85025; 85610; 85730; 86850; 86900; 86901; 87086; 94010; 97116-GP; 97162-GP; 99282-25; G0378; J1644

== ENCOUNTER 2017-02-23 17:19 | Observation (INO) | payer OTHER ==
--- NOTE | 2017-02-23 17:21 | PDOC ---
History of Present Illness - General Chief Complaint: Blood Sugar Problem Stated Complaint: HYPOGLYCEMIC Time Seen by Provider: 02/23/17 17:21 - History of Present Illness Initial Comments: 81 year old female with a PMH of hypertension, diabetes, COPD, anxiety (on Xanax), Glaucoma and chronic low back pain (on Tylenol #3) who was brought by EMS after hitting her life alert and being found altered on her couch. Per the patient, her last known normal was at 13:00 when she called her PCP Dr. Manzo regarding her medications. She states that she took her insulin this AM as directed but hasn't been eating too much and started feeling weaker and more sluggish after her phone call with Dr. Manzo. She states she felt her "blood sugar dropping" so started to eat a bunch of food a few hours later then pressed her life alert for assistance. EMS found her by the couch, drooling, with food around her. They measured a finger stick glucose of 66 and gave her glucose in the field with a repeat finger stick at 190 and some resolution of her symptoms. She presented to us AOx4 but with slightly delayed speech so julio césar wray was called despite NIHSS of 0. Denies any recent fevers, chills, nausea, vomiting, constipation, or other sick symptoms. Past History - Past Medical History Allergies/Adverse Reactions: Allergies Allergy/AdvReac Type Severity Reaction Status Date / Time No Known Allergies Allergy Verified 02/23/17 17:27 Home Medications: Ambulatory Orders Amlodipine Besylate [Norvasc -] 10 mg PO DAILY 03/22/14 Losartan Potassium 100 mg PO DAILY 03/23/14 Acetaminophen W/ Codeine #3 [Tylenol # 3 -] 1 tab PO TID 04/20/16 Brimonidine Tartrate/Timolol [Combigan 0.2%-0.5% Eye Drops] 1 drop OU DAILY 06/01 Dorzolamide HCl [Trusopt 2%] 1 drop OU BID 04/20/16 Insulin (Novolog 70/30) [Novolog Mix 70/30 Flexpen -] 8 units SQ DAILY 04/20/16 Latanoprost 0.005% Eye Drops [Xalatan 0.005% Eye Drops -] 1 drop OU HS 04/20/16 Alprazolam [Xanax] 0.5 mg PO DAILY 07/26/16 Albuterol Sulfate Inhaler - [Ventolin Hfa Inhaler -] 2 puff IH BID PRN 01/26/17 Glipizide 5 mg PO DAILY 01/26/17 Omeprazole 20 mg PO DAILY 01/26/17 Furosemide [Lasix -] 40 mg PO DAILY tablet 01/28/17 Heparin - 5,000 unit SQ BID vial 01/28/17 Mag Hydrox/Al Hydrox/Simeth [Mylanta Oral Suspension -] 30 ml PO Q6HPO PRN cup 01/28/17 Anemia: No Asthma: No Cancer: No Cardiac Disorders: No CVA: No COPD: No CHF: No Dementia: No Diabetes: Yes GI Disorders: No Disorders: No HTN: Yes Hypercholesterolemia: Yes Liver Disease: No Seizures: No Thyroid Disease: No - Surgical History Appendectomy: No Cardiac Surgery: No Cholecystectomy: No Lung Surgery: No Neurologic Surgery: Yes (SURGERY FOR HERNIATED DISC.) Orthopedic Surgery: Yes (BACK SURGERY) - Immunization History Immunization Up to Date: No - Suicide/Smoking/Psychosocial Hx Smoking History: Never smoked Have you smoked in the past 12 months: Yes Number of Cigarettes Smoked Daily: 3 'Breaking Loose' booklet given: 04/20/16 Hx Alcohol Use: No Drug/Substance Use Hx: No Substance Use Type: None Hx Substance Use Treatment: No Review of Systems - Review of Systems Constitutional: Yes: Weakness. No: Chills, Diaphoresis, Fever HEENTM: No: Blurred Vision Respiratory: No: Cough, Shortness of Breath Cardiac (ROS): No: Chest Pain, Edema ABD/GI: Yes: Nausea, Vomiting. No: Constipated, Diarrhea : No: Burning, Dysuria, Discharge Musculoskeletal: Yes: Muscle Pain, Joint Stiffness Integumentary: No: Bruising, Erythema Neurological: Yes: Weakness. No: Seizure, Tremors *Physical Exam - Physical Exam General Appearance: Yes: Nourished, Appropriately Dressed. No: Apparent Distress HEENT: positive: EOMI, CIERRA (slightly constricted but equal round and reactive) , Normal ENT Inspection. negative: Normal Voice (slightly delayed speech) Neck: positive: Trachea midline, Normal Thyroid, Supple. negative: Tender, Rigid Respiratory/Chest: positive: Lungs Clear, Normal Breath Sounds. negative: Chest Tender, Respiratory Distress, Accessory Muscle Use Cardiovascular: positive: Regular Rhythm, Regular Rate, S1, S2. negative: Murmur Gastrointestinal/Abdominal: positive: Normal Bowel Sounds, Flat, Soft. negative : Tender Musculoskeletal: negative: Normal Inspection (5/5 strength in UE and RLE with limitation of LLE because of recent fracture) Extremity: positive: Normal Capillary Refill. negative: Normal Inspection, Normal Range of Motion Integumentary: positive: Normal Color, Dry, Warm, Swelling (Left lower extremity pitting edema, 1+) Neurologic: positive: Fully Oriented, Alert, Normal Mood/Affect, Normal Response. negative: Motor Strength 5/5 (Per above) ED Treatment Course - LABORATORY CBC & Chemistry Diagram: 02/23/17 17:45 02/23/17 17:45 Medical Decision Making - Medical Decision Making 81 year old female with acutely altered mental status and low blood sugars. Etiologies could be due to stroke, hypoglycemia, intoxication (takes Xanax and Tylenol #3), or cardiac pathology (given age). Heads CT negative, sugars normalizing, WBC slightly elevated, UA pending, troponin negative, BNP elevated but lower than previous, and patient otherwise normal. Given 500ml D5-1/2NS and eating a regular diet. Duplex and CXR pending. 02/23/17 18:49 Patient signed otu to Dr. Andrew in stable condition. 02/23/17 18:58 *DC/Admit/Observation/Transfer Diagnosis at time of Disposition: Altered awareness, transient - Referrals - Patient Instructions - Post Discharge Activity
--- NOTE | 2017-02-23 17:45 | PDOC ---
Attending Attestation - Resident Resident Name: Marcos Mays - ED Attending Attestation I have performed the following: I have examined & evaluated the patient, The case was reviewed & discussed with the resident, I agree w/resident's findings & plan, Exceptions are as noted - HPI HPI: 02/23/17 17:50 81y F dm, htn, on insulin and glipizide presents with AMS. The pt states she had some insulin this morning, and states she does not think she ate enough as this afternoon she started feeling alittle weak/shaky - similar to her constellation of hypoglycemia in the past - she went ot get some food but isnt able to recall what happened after that. She had hit her lifealert. the call was around 4:09pm, but EMS had difficulty getinginto the premesis and the son gualberto to get through the window. Upon arrival of EMS, her blood sugar was 66, they give D10 with some improvement of her syotoms over about 15 min. Pt has a recent hx of pelvic fx and was just d/c from the [facility]. Per EMS the pts bp was also a bit low at 90/40s. - Physicial Exam PE: 02/23/17 19:27 GENERAL: The patient is awake, alert, and fully oriented x 4, Nontoxic - in no acute distress. HEAD: Normocephalic, atraumatic. EYES: extraocular movements intact, sclera anicteric, conjunctiva clear, pupils 2mm and symmetrically reactive to light ENT: Normal voice, Moist mucous membranes. NECK: Normal range of motion, supple LUNGS: Breath sounds equal, clear to auscultation bilaterally. No wheezes, no rhonchi, no rales. HEART: Regular rate and rhythm, normal S1 and S2 without murmur, rub or gallop. ABDOMEN: Soft, nontender, normoactive bowel sounds. No guarding, no rebound. . No CVA tenderness EXTREMITIES: Normal range of motion, pitting edmea of the LLE, no calf tenderness or pain. NEUROLOGICAL: No facial assymetry, normal speech pattern, but slow , moving all 4 extremities spontaneously and symmetrically PSYCH: Normal mood, normal affect. SKIN: Warm, Dry, normal turgor, - Medical Decision Making differential for the pts symptoms includes hypoglycemia, metabolci dernagement, occult infection, will ck cbc, cmp, trop, ekg, ua will ck CT code kamala was called US of LLE to r/o DVT 02/23/17 17:[address] hgihtower agree with management 02/23/17 18:10 dw radiology - CT head neg for pathology will give the pt asa 02/23/17 19:24 pts son is jazmin - states her speech is still alittle slow - not exactly slurred though Not TPA cndidate due to possible hypoglycemia, and mild severity of sypmtoms 02/23/17 19:27 likely observation awaiting ua to r/o UTI will dw dr. coleman await US 02/23/17 20:[address] manzo agree with observation in tele A portion of this note was documented by scribe services under my direction. I have reviewed the details of the note, within reason, and agree with the documentation with the following case summary and management plan written by me <Toi Barney - Last Filed: 02/23/17 20:00> - Medical Decision Making 02/24/17 08:43pm Call was placed to Dr. Manzo, case was discussed. <Sally Song - Last Filed: 02/24/17 08:52> Heart Score/ECG Review - ECG Impressions Comment:: 02/23/17 19:27 Twelve-lead EKG was performed and reviewed by me. There is normal sinus rhythm with a normal rate. TWI in lateral leads <Toi Barney - Last Filed: 02/23/17 20:00> NIH Stroke Scale - Last Known Well Date/Time & Onset Date Last Known Well: 02/23/17 Time Last Known Well: 14:00 - Initial Evaluation Level of consciousness: Alert Ask patient the month and their age: Answers both correctly Ask patient to open & close eyes; make fist and let go: Obeys both correctly Best gaze (horizontal eye movement): Normal Visual field testing: No visual field loss Facial paresis (Show teeth/raise eyebrows/close eyes tight): Normal symmetrical movement Motor Function: Left Arm: Normal Motor Function: Right Arm: Normal (extends arm 90 (or 45) degrees for 10 seconds without drift Motor Function: Left Leg: Normal (extends leg 30 degrees for 5 seconds without drift) Motor Function: Right Leg: Normal (extends leg 30 degrees for 5 seconds without drift) Limb Ataxia: No ataxia Sensory(Use pinprick test arms,legs,trunk,face/side to side): Normal Best language (Describe picture, name items, read sentences): No Aphasia Dysarthria (read several words): Normal articulation Extinction and Inattention: No abnormality - Total Score NIH Stroke Scale Score: 0 <Toi Barney - Last Filed: 02/23/17 20:00>
[2017-02-23 17:52] LABS: EOSINOPHIL 3.8 % (0-4.5); MCH 30.2 pg (25.7-33.7); MCHC 32.7 g/dl (32.0-36.0); MEAN CELL VOLUME 92.4 fl (80-96); MEAN PLT VOLUME 9.3 fl (7.5-11.1); NEUTROPHILS 77.1 % (42.8-82.8); PLATELET COUNT 333 K/MM3 (134-434); RDW 13.2 % (11.6-15.6); WHITE BLOOD COUNT 13.5 K/mm3 (4.0-10.0)
[2017-02-23 18:05] LABS: INR 0.91 (0.82-1.09); PROTHROMBIN TIME (PATIENT) 10.3 SEC (9.98-11.88)
[2017-02-23 18:07] VITALS: TEMP 98.3
[2017-02-23 18:09] LABS: CALCIUM 8.6 mg/dL (8.5-10.1)
[2017-02-23 18:12] LABS: ALBUMIN 3.1 g/dl (3.4-5.0); ANION GAP 7 (8-16); CO2 28 mmol/L (21-32); GLUCOSE,RANDOM 62 mg/dL (74-106)
[2017-02-23 18:15] LABS: BILIRUBIN,TOTAL 0.2 mg/dL (0.2-1.0); CREATININE 1.2 mg/dL (0.55-1.02); SGOT/AST 18 U/L (15-37); SGPT/ALT 19 U/L (12-78); TOT PROT 6.7 g/dl (6.4-8.2)
[2017-02-23 18:16] LABS: ALK PHOS 137 U/L (45-117); CPK 86 IU/L (26-192)
[2017-02-23 18:20] LABS: TROPONIN I < 0.02 ng/ml (0.00-0.05)
[2017-02-23 18:23] LABS: THYROID STIMULATING HORMONE 0.85 uIU/ml (0.358-3.74)
[2017-02-23] MEDS ORDERED: ASPIRIN 81 MG CHEWABLE TABLETS PO ONE (19:20)
[2017-02-23] MEDS ORDERED: ASPIRIN 325 MG TABLET ONE (19:33)
--- NOTE | 2017-02-23 19:43 | PDOC ---
*Physical Exam - Vital Signs Last Vital Signs Temp Pulse Resp BP Pulse Ox 98.3 F 62 20 105/60 100 02/23/17 18:06 02/23/17 18:06 02/23/17 18:06 02/23/17 18:06 02/23/17 18:06 <KamranNga aguilae - Last Filed: 02/23/17 19:44> - Vital Signs Last Vital Signs Temp Pulse Resp BP Pulse Ox 98.3 F 62 20 105/60 100 02/23/17 18:06 02/23/17 18:06 02/23/17 18:06 02/23/17 18:06 02/23/17 18:06 <Toi Barney - Last Filed: 02/23/17 19:59> ED Treatment Course - LABORATORY CBC & Chemistry Diagram: 02/23/17 17:45 02/23/17 17:45 - ADDITIONAL ORDERS Additional order review: Laboratory Results 02/23/17 02/23/17 02/23/17 17:45 17:45 17:45 PT with INR 10.30 INR 0.91 Sodium 140 Potassium 4.0 Chloride 105 Carbon Dioxide 28 Anion Gap 7 L BUN 25 H Creatinine 1.2 H Creat Clearance w eGFR 43.01 Random Glucose 62 L D Calcium 8.6 Total Bilirubin 0.2 D AST 18 D ALT 19 D Alkaline Phosphatase 137 H D Creatine Kinase Cancelled 86 Troponin I Cancelled < 0.02 B-Natriuretic Peptide Cancelled 781.31 H Total Protein 6.7 Albumin 3.1 L TSH 0.85 D 02/23/17 17:45 RBC 3.94 MCV 92.4 MCHC 32.7 RDW 13.2 MPV 9.3 Neutrophils % 77.1 D Lymphocytes % 10.2 D Monocytes % 7.9 Eosinophils % 3.8 Basophils % 1.0 <KamranIfrah - Last Filed: 02/23/17 19:44> - LABORATORY CBC & Chemistry Diagram: 02/23/17 17:45 02/23/17 17:45 - ADDITIONAL ORDERS Additional order review: Laboratory Results 02/23/17 02/23/17 02/23/17 17:45 17:45 17:45 PT with INR 10.30 INR 0.91 Sodium 140 Potassium 4.0 Chloride 105 Carbon Dioxide 28 Anion Gap 7 L BUN 25 H Creatinine 1.2 H Creat Clearance w eGFR 43.01 Random Glucose 62 L D Calcium 8.6 Total Bilirubin 0.2 D AST 18 D ALT 19 D Alkaline Phosphatase 137 H D Creatine Kinase Cancelled 86 Troponin I Cancelled < 0.02 B-Natriuretic Peptide Cancelled 781.31 H Total Protein 6.7 Albumin 3.1 L TSH 0.85 D 02/23/17 17:45 RBC 3.94 MCV 92.4 MCHC 32.7 RDW 13.2 MPV 9.3 Neutrophils % 77.1 D Lymphocytes % 10.2 D Monocytes % 7.9 Eosinophils % 3.8 Basophils % 1.0 - RADIOLOGY Radiology Studies Ordered: Category Date Time Status DUPLEX VASCUL US-1 LEG [US] Stat Ultrasound 02/23/17 18:40 Taken - Medications Given in the ED: ED Medications Discontinued Medications Generic Name Dose Route Start Last Admin Trade Name Freq PRN Reason Stop Dose Admin Aspirin 324 mg 02/23/17 19:20 02/23/17 19:49 Asa - PO 02/23/17 19:21 324 mg ONCE ONE Administration <Toi Barney - Last Filed: 02/23/17 19:59> Medical Decision Making - Medical Decision Making 02/23/17 19:44 Received sign-out from resident Tabatha. CBC, BMP 02/23/17 17:45 02/23/17 17:45 Hepatic Panel Total Bilirubin 0.2 mg/dL (0.2-1.0) D 02/23/17 17:45 AST 18 U/L (15-37) D 02/23/17 17:45 ALT 19 U/L (12-78) D 02/23/17 17:45 Alkaline Phosphatase 137 U/L (45-117) H D 02/23/17 17:45 Albumin 3.1 g/dl (3.4-5.0) L 02/23/17 17:45 <Ifrah Andrew - Last Filed: 02/23/17 19:44> *DC/Admit/Observation/Transfer <Ifrah Andrew - Last Filed: 02/23/17 19:44> - Discharge Dispostion Admit: Yes <Toi Barney - Last Filed: 02/23/17 19:59> Diagnosis at time of Disposition: Altered awareness, transient Syncope Qualifiers: Syncope type: unspecified Qualified Code(s): R55 - Syncope and collapse - Discharge Dispostion Condition at time of disposition: Stable
[2017-02-23 20:38] LABS: URINE APPEARANCE CLEAR; URINE BILIRUBIN NEGATIVE (NEGATIVE); URINE BLOOD NEGATIVE (NEGATIVE); URINE COLOR STRAW; URINE GLUCOSE (UA) NEGATIVE (NEGATIVE); URINE KETONE NEGATIVE (NEGATIVE); URINE NITRITE NEGATIVE (NEGATIVE); URINE PROTEIN NEGATIVE (NEGATIVE); URINE UROBILINOGEN NEGATIVE mg/dL (0.2-1.0)
[2017-02-23 20:41] LABS: URINE LEUK ESTERASE 1+ (NEGATIVE)
[2017-02-23 20:42] LABS: URINE BACTERIA RARE /hpf (NONE SEEN); URINE HYALINE CAST 1 /lpf; URINE RBC <1 /hpf (0-3); URINE WBC 5 /hpf (3-5)
[2017-02-23 23:18] LABS: URINE LEUK ESTERASE 1+ (NEGATIVE)
[2017-02-24] MEDS ORDERED: ALBUTEROL SO4 0.083% IH SOL 2.5 MG/3 ML VIAL.NEB. NEB ONE (02:07)
[2017-02-24] MEDS ORDERED: morphine CARPU-JECT 2 MG/1 ML DISP.SYRIN IVPUSH ONE (04:21)
[2017-02-24] MEDS ORDERED: morphine SULFATE 4 MG/ML VIAL ONE (04:24)
[2017-02-24] MEDS ORDERED: INSULIN REGULAR HUMAN 100 UNITS/ML *VIAL SQ ONE (06:32)
[2017-02-24] MEDS ORDERED: INSULIN REGULAR HUMAN 100 UNITS/ML *VIAL ONE ×2 (06:40→07:51)
[2017-02-24] MEDS ORDERED: ACETAMINOPHEN WITH CODEINE 300MG/30MG TABLET PO ONE (08:48)
[2017-02-24] MEDS ORDERED: ACETAMINOPHEN WITH CODEINE 300MG/30MG TABLET ONE (08:51)
[2017-02-24 09:29] LABS: BASOPHIL 1.1 % (0-2.0); EOSINOPHIL 2.4 % (0-4.5); MCH 30.1 pg (25.7-33.7); MCHC 32.3 g/dl (32.0-36.0); MEAN CELL VOLUME 93.2 fl (80-96); MEAN PLT VOLUME 9.5 fl (7.5-11.1); NEUTROPHILS 70.5 % (42.8-82.8); PLATELET COUNT 321 K/MM3 (134-434); RDW 13.4 % (11.6-15.6); WHITE BLOOD COUNT 9.7 K/mm3 (4.0-10.0)
[2017-02-24 09:53] LABS: ANION GAP 6 (8-16); CALCIUM 9.1 mg/dL (8.5-10.1); CO2 29 mmol/L (21-32); CREATININE 0.9 mg/dL (0.55-1.02); GLUCOSE,RANDOM 266 mg/dL (74-106)
[2017-02-24 10:51] VITALS: BMI 21.2
[2017-02-24 12:17] VITALS: BP 166/70; PULSE 92
--- NOTE | 2017-02-24 12:51 | DS ---
Physical Examination Vital Signs: Vital Signs Temperature 98.3 F 02/23/17 18:06 Pulse Rate 92 H 02/24/17 12:16 Respiratory Rate 18 02/24/17 12:16 Blood Pressure 166/70 02/24/17 12:16 O2 Sat by Pulse Oximetry (%) 100 02/24/17 12:16 Findings/Remarks: Admitted with hypogycemia and near syncope Constitutional: Yes: No Distress Eyes: Yes: WNL HENT: Yes: WNL Neck: Yes: WNL Cardiovascular: Yes: Regular Rate and Rhythm Respiratory: Yes: WNL Gastrointestinal: Yes: WNL ...Rectal Exam: Yes: Deferred Renal/: Yes: WNL Breast(s): Yes: WNL Musculoskeletal: Yes: Back Pain Neurological: Yes: Alert Psychiatric: Yes: Alert Labs: CBC, BMP 02/24/17 09:05 02/24/17 09:05 Discharge Summary Reason For Visit: SYNCOPE TRANSIENT ALTERATION OF AWARENES. Current Active Problems Altered awareness, transient (Acute) Syncope (Acute) Condition: Stable - Instructions - Home Medications Comprehensive Discharge Medication List: Ambulatory Orders Amlodipine Besylate [Norvasc -] 10 mg PO DAILY 03/22/14 Losartan Potassium 100 mg PO DAILY 03/23/14 Acetaminophen W/ Codeine #3 [Tylenol # 3 -] 1 tab PO TID 04/20/16 Brimonidine Tartrate/Timolol [Combigan 0.2%-0.5% Eye Drops] 1 drop OU DAILY 06/01 Dorzolamide HCl [Trusopt 2%] 1 drop OU BID 04/20/16 Insulin (Novolog 70/30) [Novolog Mix 70/30 Flexpen -] 8 units SQ DAILY 04/20/16 Latanoprost 0.005% Eye Drops [Xalatan 0.005% Eye Drops -] 1 drop OU HS 04/20/16 Alprazolam [Xanax] 0.5 mg PO BID PRN 07/26/16 Albuterol Sulfate Inhaler - [Ventolin Hfa Inhaler -] 2 puff IH BID PRN 01/26/17 Glipizide 5 mg PO DAILY 01/26/17 Omeprazole 20 mg PO DAILY 01/26/17 Furosemide [Lasix -] 40 mg PO DAILY tablet 01/28/17 Heparin - 5,000 unit SQ BID vial 01/28/17 Mag Hydrox/Al Hydrox/Simeth [Mylanta Oral Suspension -] 30 ml PO Q6HPO PRN cup 01/28/17
[2017-02-24] MEDS ORDERED: PATIENT'S OWN MEDICATION (NON-FORMULARY) (Alprazolam [Xanax] 0.5 MG) PO PRN (12:53)
[2017-02-24] MEDS ORDERED: ALPRAZolam 0.25 MG TABLET ONE (13:08)
[2017-02-24] MEDS ORDERED: CODEINE PO SCH (14:00)
[2017-02-24] MEDS ORDERED: ACETAMINOPHEN PO SCH (14:00)
[2017-02-24] MEDS ORDERED: [UNRECOGNIZED DRUG - OTHER] PO SCH (14:00)
--- NOTE | 2017-02-24 14:00 | HP ---
DATE OF ADMISSION: 02/23/2017 This is an 81-year-old female, known to me for several years. Last month she was admitted here with pelvic fracture. After that, she was sent to [facility], and then 2 days ago she went home. Last night, at home, she had near syncope and was brought to the emergency room. In the emergency room, her blood sugar was 62, so it was thought that patient may have a hypoglycemic episode. She is on insulin 6 units a day. This morning, patient is feeling better, no complaints. Her blood sugar is 266. Her pain is better. She was kept under observation and I am discharging her home. I spoke to her son. FINAL DIAGNOSES: Syncope, probably hypoglycemic; pelvic fracture; pelvic pain; . The patient is admitted for observation. ALICJA FARAH M.D. [id number]
[2017-02-25] MEDS ORDERED: PATIENT'S OWN MEDICATION (NON-FORMULARY) (Amlodipine Besylate [Norvasc -] 10 MG) PO SCH (10:00)
--- NOTE | 2017-02-25 15:09 | EKG ---
Test Reason : Blood Pressure : / mmHG Vent. Rate : 059 BPM Atrial Rate : 059 BPM P-R Int : 184 ms QRS Dur : 072 ms QT Int : 454 ms P-R-T Axes : 066 037 110 degrees QTc Int : 449 ms SINUS BRADYCARDIA CANNOT RULE OUT INFERIOR INFARCT , AGE UNDETERMINED T WAVE ABNORMALITY, CONSIDER LATERAL ISCHEMIA ABNORMAL ECG WHEN COMPARED WITH ECG OF 26-JUL-2016 13:59, VENT. RATE HAS DECREASED BY 31 BPM T WAVE VARIATION Confirmed by VIET HUFF MD ([id number]) on 02/25/2017 3:09:30 PM Referred By: Confirmed By:VIET HUFF MD
== END 2017-02-24 13:00 | disposition home or self-care (01) ==
LOC: JER 17:19 → JERBED 19:59
PROVIDERS: ADMIT Internal Medicine; ATTEND Internal Medicine
PROC: 3E033NZ Introduction of Analgesics, Hypnotics, Sedatives into Peripheral Vein, Percutaneous Approach (ICD-10-PCS; principal; 2017-02-23)
PROC: 3E013VG Introduction of Insulin into Subcutaneous Tissue, Percutaneous Approach (ICD-10-PCS; 2017-02-23)
DX: E11.641 Type 2 diabetes mellitus with hypoglycemia with coma (principal); Z79.4 Long term (current) use of insulin; I10 Essential (primary) hypertension; J44.9 Chronic obstructive pulmonary disease, unspecified; F41.9 Anxiety disorder, unspecified; M54.5 Low back pain; G89.29 Other chronic pain; H40.9 Unspecified glaucoma
CPT/HCPCS: 36415; 70450-TC; 71020-TC; 80048; 80053; 81003; 81015; 82550; 83880; 84443; 84484; 85025; 85610; 93005; 93010; 93971-TC; 96372; 96374; 99285-25; G0378

== ENCOUNTER 2018-10-03 13:53 | Emergency (ER) | payer OTHER ==
--- NOTE | 2018-10-03 13:56 | PDOC ---
Rapid Medical Evaluation Time Seen by Provider: 10/03/18 13:55 Medical Evaluation: Allergies Allergy/AdvReac Type Severity Reaction Status Date / Time No Known Allergies Allergy Verified 09/19/17 15:00 10/03/18 13:55 I have performed a brief in-person evaluation of this patient The patient presents with a chief complaint of: CP and abd pain w/ diarrhea. H/ o HTN, IIDM, glaucoma, COPD, anxiety Pertinent physical exam findings:Stable and well magi I have ordered the following:labs The patient will proceed to the ED for further evaluation. Discharge Disposition - Diagnosis Chest pain Qualifiers: Chest pain type: unspecified Qualified Code(s): R07.9 - Chest pain, unspecified - Referrals - Patient Instructions - Post Discharge Activity
[2018-10-03 14:04] VITALS: BP 152/78; PULSE 87; TEMP 97.8; BMI 20.6
--- NOTE | 2018-10-03 16:24 | PDOC ---
History of Present Illness - General Chief Complaint: Chest Pain Stated Complaint: DIFFICULTY BREATHING/ DIARRHIA Time Seen by Provider: 10/03/18 13:55 History Source: Patient Exam Limitations: No Limitations - History of Present Illness Initial Comments: 10/03/18 16:29 82 year old female with a PMH of IDDM, HTN, COPD, Glaucoma and chronic back pain Past History - Past Medical History Allergies/Adverse Reactions: Allergies Allergy/AdvReac Type Severity Reaction Status Date / Time No Known Allergies Allergy Verified 09/19/17 15:00 Home Medications: Ambulatory Orders Amlodipine Besylate [Norvasc -] 10 mg PO DAILY 03/22/14 Losartan Potassium 100 mg PO DAILY 03/23/14 Acetaminophen W/ Codeine #3 [Tylenol # 3 -] 1 tab PO TID 04/20/16 Brimonidine Tartrate/Timolol [Combigan 0.2%-0.5% Eye Drops] 1 drop OU DAILY 06/01 Dorzolamide HCl [Trusopt 2%] 1 drop OU BID 04/20/16 Insulin (Novolog 70/30) [Novolog Mix 70/30 Flexpen -] 8 units SQ DAILY 04/20/16 Latanoprost 0.005% Eye Drops [Xalatan 0.005% Eye Drops -] 1 drop OU HS 04/20/16 Alprazolam [Xanax] 0.5 mg PO BID PRN 07/26/16 Albuterol Sulfate Inhaler - [Ventolin Hfa Inhaler -] 2 puff IH BID PRN 01/26/17 Glipizide 5 mg PO DAILY 01/26/17 Omeprazole 20 mg PO DAILY 01/26/17 Furosemide [Lasix -] 40 mg PO DAILY tablet 01/28/17 Mag Hydrox/Al Hydrox/Simeth [Mylanta Oral Suspension -] 30 ml PO Q6HPO PRN cup 01/28/17 Ondansetron HCl [Zofran] 4 mg PO BID PRN 3 Days #6 tablet 09/19/17 Anemia: No Asthma: No Cancer: No Cardiac Disorders: No CVA: No COPD: Yes CHF: No Dementia: No Diabetes: Yes GI Disorders: No Disorders: No HTN: Yes Hypercholesterolemia: Yes Liver Disease: No Seizures: No Thyroid Disease: No - Surgical History Appendectomy: No Cardiac Surgery: No Cholecystectomy: No Lung Surgery: No Neurologic Surgery: Yes (SURGERY FOR HERNIATED DISC.) Orthopedic Surgery: Yes (BACK SURGERY) - Immunization History Immunization Up to Date: No - Suicide/Smoking/Psychosocial Hx Smoking History: Never smoked Have you smoked in the past 12 months: Yes Number of Cigarettes Smoked Daily: 3 'Breaking Loose' booklet given: 04/20/16 Hx Alcohol Use: No Drug/Substance Use Hx: No Substance Use Type: None Hx Substance Use Treatment: No *Physical Exam - Vital Signs Last Vital Signs Temp Pulse Resp BP Pulse Ox 97.8 F 87 20 152/78 100 10/03/18 13:58 10/03/18 13:58 10/03/18 13:58 10/03/18 13:58 10/03/18 13:58 *DC/Admit/Observation/Transfer Diagnosis at time of Disposition: Chest pain Qualifiers: Chest pain type: unspecified Qualified Code(s): R07.9 - Chest pain, unspecified - Referrals Referrals: Margareth Manzo MD [Primary Care Provider] - - Patient Instructions - Post Discharge Activity
[2018-10-03] MEDS ORDERED: ACETAMINOPHEN 1000 MG/100 ML VIAL (NON FORMULARY) IVPB ONE (16:39)
[2018-10-03] MEDS ORDERED: SODIUM CHLORIDE 0.9% 500 ML INFUS.BAG IV ONE (16:39)
[2018-10-03 17:40] LABS: BASO % 1.5 % (0-2.0); EOS % 6.4 % (0-4.5); HEMATOCRIT 44.4 % (32.4-45.2); HEMOGLOBIN 14.5 GM/dL (10.7-15.3); LYMPH % 27.8 % (8-40); MCH 30.1 pg (25.7-33.7); MCHC 32.7 g/dl (32.0-36.0); MEAN PLT VOLUME 10.4 fl (7.5-11.1); MONO % 7.5 % (3.8-10.2); NEUT % 56.8 % (42.8-82.8); PLATELET COUNT 292 K/MM3 (134-434); RBC 4.83 M/mm3 (3.60-5.2); RDW 13.3 % (11.6-15.6); WHITE BLOOD COUNT 10.7 K/mm3 (4.0-10.0)
--- NOTE | 2018-10-03 17:48 | PDOC ---
Documentation entered by Ema Diaz SCRIBE, acting as scribe for Mariana Escobar MD. Mariana Escobar MD: This documentation has been prepared by the Emily humphries Brenda, SCRIBE, under my direction and personally reviewed by me in its entirety. I confirm that the documentation accurately reflects all work, treatment, procedures, and medical decision making performed by me. Attending Attestation - Resident Resident Name: Hua Montero - ED Attending Attestation I have performed the following: I have examined & evaluated the patient, The case was reviewed & discussed with the resident, I agree w/resident's findings & plan, Exceptions are as noted - HPI HPI: 10/03/18 16:50 The patient is an 83 year old female, with a significant PMH of hypertension, hyperlipidemia, i diabetes, COPD, anxiety (on Xanax), Glaucoma and chronic low back pain (on Tylenol #3), who presents to the emergency department with 2 weeks of flank left lower quadrant abdominal pain, radiating to the left back and endorses nausea.. The patient reports that at baseline, she feels lower abdominal discomfort for the psat 2 years, due to a hip replacement surgery. As per roberto, on the bedside, the patient has had intermittent bouts of constipation and watery diarrhea for the past 2 days. As per aide, the patient also experienced a 30 minute episode of chest pain around 12:30pm today, that felt like pressure. The patient denies shortness of breath, headache and dizziness. Denies fever, chills, vomiting. Denies dysuria, frequency, urgency and hematuria. Denies any other symptoms. Allergies: NKA Past surgical history: Neuro: Surgery for herniated disc. Ortho: back surgery Social history: Currently denies cigarettes, denies alcohol, denies recreational drugs PCP: Dr. Manzo - Physicial Exam PE: GENERAL: Awake, alert, and fully oriented, in no acute distress HEAD: No signs of trauma EYES: PERRLA, EOMI, sclera anicteric, conjunctiva clear ENT: Auricles normal inspection, hearing grossly normal, nares patent, oropharynx clear without exudates. Moist mucosa NECK: Normal ROM, supple, no lymphadenopathy, JVD, or masses LUNGS: Breath sounds equal, clear to auscultation bilaterally. No wheezes, and no crackles HEART: Regular rate and rhythm, normal S1 and S2, no murmurs, rubs or gallops ABDOMEN: Soft, mildly distended, diffuse mild tenderness, +hyperactive bowel sounds. No guarding, no rebound. No masses EXTREMITIES: Normal range of motion, no edema. No clubbing or cyanosis. No cords, erythema, or tenderness NEUROLOGICAL: Cranial nerves II through XII grossly intact. Normal speech, normal gait. Motor and sensation intact SKIN: Warm, dry, normal turgor, no rashes or lesions noted. - Medical Decision Making Pt presents with intermittent constipation and diarrhea. She has history of stool impaction in the past, as she is on chronic opioids for pain. Exam shows hyperactive bowel sounds, which would indicate poss SBO rather than opioid- induced hypomotility. She may also have diverticulitis or colitis. There is also likely large amount of retained stool as well based on her history and medications. Will check labs, give oral contrast, and plan for CT.
[2018-10-03] MEDS ORDERED: ACETAMINOPHEN INJECTION 100 ML IVPB ONE (18:06)
[2018-10-03 18:12] LABS: EPI CELLS 8.2 /HPF (0-5/HPF); HYALINE CASTS 7 /lpf (0-8); PH,URINE 8.5 (5.0-8.0); URINE APPEARANCE CLOUDY; URINE BACTERIA 201.9 /hpf (NEGATIVE); URINE BILIRUBIN NEGATIVE (NEGATIVE); URINE COLOR YELLOW; URINE GLUCOSE (UA) NEGATIVE (NEGATIVE); URINE KETONE NEGATIVE (NEGATIVE); URINE LEUK ESTERASE 2+ (NEGATIVE); URINE NITRITE NEGATIVE (NEGATIVE); URINE PROTEIN NEGATIVE (NEGATIVE); URINE UROBILINOGEN 0.2 mg/dL (0.2-1.0); URINE WBC 35 /hpf (0-5)
[2018-10-03 18:31] LABS: ALBUMIN 3.8 g/dl (3.4-5.0); ALK PHOS 123 U/L (45-117); ANION GAP 5 MMOL/L (8-16); BILIRUBIN,TOTAL 0.3 mg/dL (0.2-1); BLOOD UREA NITROGEN 20.4 mg/dL (7-18); CALCIUM 9.2 mg/dL (8.5-10.1); CHLORIDE 108 mmol/L (98-107); CO2 30 mmol/L (21-32); GLUCOSE,RANDOM 100 mg/dL (74-106); POTASSIUM 3.7 mmol/L (3.5-5.1); SGOT/AST 22 U/L (15-37); SGPT/ALT 23 U/L (13-61); SODIUM 143 mmol/L (136-145); TOT PROT 7.8 g/dl (6.4-8.2)
[2018-10-03 18:33] LABS: URINE RBC 9.6 /hpf (0-4)
--- NOTE | 2018-10-03 19:15 | PDOC ---
*Physical Exam - Vital Signs Last Vital Signs Temp Pulse Resp BP Pulse Ox 97.8 F 87 20 152/78 98 10/03/18 13:58 10/03/18 13:58 10/03/18 13:58 10/03/18 13:58 10/03/18 17:35 ED Treatment Course - LABORATORY CBC & Chemistry Diagram: 10/03/18 17:00 10/03/18 17:00 - ADDITIONAL ORDERS Additional order review: Laboratory Results 10/03/18 10/03/18 10/03/18 17:30 17:00 17:00 Sodium Potassium Chloride Carbon Dioxide Anion Gap BUN Creatinine Est GFR (CKD-EPI)AfAm Est GFR (CKD-EPI)NonAf Random Glucose Lactic Acid 0.8 Calcium Total Bilirubin AST ALT Alkaline Phosphatase Creatine Kinase Troponin I Total Protein Albumin Lipase 36 L Urine Color Yellow Urine Appearance Cloudy Urine pH 8.5 H D Ur Specific [place] 1.018 Urine Protein Negative Urine Glucose (UA) Negative Urine Ketones Negative Urine Blood Negative Urine Nitrite Negative Urine Bilirubin Negative Urine Urobilinogen 0.2 Ur Leukocyte Esterase 2+ H Urine WBC (Auto) 35 Urine RBC (Auto) 9.6 Urine Casts (Auto) 7 U Epithel Cells (Auto) 8.2 Urine Bacteria (Auto) 201.9 10/03/18 17:00 Sodium 143 Potassium 3.7 Chloride 108 H Carbon Dioxide 30 Anion Gap 5 L BUN 20.4 H Creatinine 1.0 Est GFR (CKD-EPI)AfAm 59.91 Est GFR (CKD-EPI)NonAf 51.69 Random Glucose 100 Lactic Acid Calcium 9.2 Total Bilirubin 0.3 AST 22 ALT 23 Alkaline Phosphatase 123 H Creatine Kinase 66 Troponin I < 0.02 Total Protein 7.8 Albumin 3.8 Lipase Urine Color Urine Appearance Urine pH Ur Specific [place] Urine Protein Urine Glucose (UA) Urine Ketones Urine Blood Urine Nitrite Urine Bilirubin Urine Urobilinogen Ur Leukocyte Esterase Urine WBC (Auto) Urine RBC (Auto) Urine Casts (Auto) U Epithel Cells (Auto) Urine Bacteria (Auto) 10/03/18 17:00 RBC 4.83 MCV 92.0 MCHC 32.7 RDW 13.3 MPV 10.4 D Neutrophils % 56.8 Lymphocytes % 27.8 Monocytes % 7.5 Eosinophils % 6.4 H Basophils % 1.5 D - Medications Given in the ED: ED Medications Discontinued Medications Generic Name Dose Route Start Last Admin Trade Name Freq PRN Reason Stop Dose Admin Acetaminophen 1,000 mg 10/03/18 16:39 10/03/18 18:05 Ofirmev Injection - IVPB 10/03/18 16:40 1,000 mg ONCE ONE Administration Sodium Chloride 1,000 ml 10/03/18 16:39 10/03/18 17:45 Normal Saline - IV 10/03/18 16:40 1,000 ml ONCE ONE Administration Medical Decision Making - Medical Decision Making Patient signed out by Dr. Montero 83yo F with PMH of HTN, DM, COPD, chronic back pain, fecal impaction presenting with LLQ pain x 2 weeks and chest pain. Pending CTAP UA with UTI, will treat with levaquin 10/03/18 19:15 CTAP without acute pathology, per radiology: "Clinical information: left lower quadrant pain multiplanar imaging was performed utilizing intravenous as well as oral contrast. No evidence of pneumoperitoneum, free intraperitoneal fluid or bowel obstruction. In comparison to a prior CT exam of 09/19/2017 interval development of nonspecific fluid accumulation is seen within the length of the vaginal canal. The mildly expanded vaginal canal measures 5 x 3.7 x 1.3 cm. Interval resolution of diffuse colonic fecal retention is noted. The remainder of the exam demonstrates no definite interval change. Small umbilical hernia containing of the ventral wall of a nondilated mid abdominal small bowel loop. No CT evidence of acute diverticulitis. There is no gross small bowel pathology. Possible partial visualization of the appendix is noted. No obvious indirect CT signs of acute appendicitis are seen. Evaluation is somewhat limited due to a relative paucity of intraperitoneal fat. The common bile duct is mildly dilated with a 0.8 cm diameter. No gross intraductal calculus is noted within the limitations of CT. Moderate diffuse pancreatic atrophy. Apparent incidental note is again made of bilateral extrarenal pelves. There is no definite hydronephrosis. 3 mm nonobstructing left renal calculus. The liver, spleen, adrenal glands and right kidney demonstrate no discrete abnormality. There is no aortic aneurysm. No obvious lymphadenopathy is identified. Fibroid uterus. The current urinary bladder volume is approximately 350 mL Chronic bilateral pubic rami fractures. Minimal to mild focal opacity is seen within the right posterior basilar region probably representing mild scarring. Prominent multilevel lumbar degenerative disc and facet joint changes are noted. Moderate lumbar dextroscoliosis. IMPRESSION: In comparison to a prior exam of 09/19/2017 interval development of nonspecific fluid accumulation is seen within the vaginal canal. Interval resolution of diffuse colonic fecal retention is noted. Mild urinary bladder overdistention which appears improved since the previous exam. If clinically indicated correlate with pre- and post- void sonography. The remainder of the exam demonstrates no obvious interval change. Mild common bile duct dilatation. 3 mm nonobstructing left renal calculus. Fibroid uterus. Chronic bilateral pubic rami fractures. " Patient discharged with prescription for levaquin *DC/Admit/Observation/Transfer Diagnosis at time of Disposition: Abdominal pain Qualifiers: Abdominal location: left lower quadrant Qualified Code(s): R10.32 - Left lower quadrant pain - Discharge Dispostion Disposition: HOME Condition at time of disposition: Stable - Prescriptions Prescriptions: Levofloxacin [Levaquin] 500 mg PO DAILY #7 tablet - Referrals Referrals: Margareth Manzo MD [Primary Care Provider] - - Patient Instructions Printed Discharge Instructions: DI for Abdominal Pain-Adult Additional Instructions: You came to the ED for abdominal pain. We did a CT scan which did not show acute pathology. It did show some non-acute findings. A copy of the report was given to you. Follow-up with your primary care provider regarding this. Urinalysis showed you have a urinary tract infection. Antibiotics prescription sent to your pharmacy. Take as instructed. You can take [id number] motrin or tylenol for pain. Follow the instructions on the medication bottle. Follow-up with your primary care provider within 72 hours to discuss this ED visit and to further evaluate your symptoms. Call and make an appointment tomorrow morning. Your workup is not complete until you do so. Immediate medical attention is required if you develop: worsening pain, high fevers, persistent nausea, vomiting, or any new or concerning symptoms. If you think you are having an emergency, call for emergency medical services or present to the emergency department right away. - Post Discharge Activity
[2018-10-03] MEDS ORDERED: KETOROLAC TROMETHAMINE 15 MG/ML VIAL IM ONE (21:11)
--- NOTE | 2018-10-03 21:15 | PDOC ---
*Physical Exam - Vital Signs Last Vital Signs Temp Pulse Resp BP Pulse Ox 97.8 F 87 20 152/78 98 10/03/18 13:58 10/03/18 13:58 10/03/18 13:58 10/03/18 13:58 10/03/18 17:35 ED Treatment Course - LABORATORY CBC & Chemistry Diagram: 10/03/18 17:00 10/03/18 17:00 - ADDITIONAL ORDERS Additional order review: Laboratory Results 10/03/18 10/03/18 10/03/18 17:30 17:00 17:00 Sodium Potassium Chloride Carbon Dioxide Anion Gap BUN Creatinine Est GFR (CKD-EPI)AfAm Est GFR (CKD-EPI)NonAf Random Glucose Lactic Acid 0.8 Calcium Total Bilirubin AST ALT Alkaline Phosphatase Creatine Kinase Troponin I Total Protein Albumin Lipase 36 L Urine Color Yellow Urine Appearance Cloudy Urine pH 8.5 H D Ur Specific [place] 1.018 Urine Protein Negative Urine Glucose (UA) Negative Urine Ketones Negative Urine Blood Negative Urine Nitrite Negative Urine Bilirubin Negative Urine Urobilinogen 0.2 Ur Leukocyte Esterase 2+ H Urine WBC (Auto) 35 Urine RBC (Auto) 9.6 Urine Casts (Auto) 7 U Epithel Cells (Auto) 8.2 Urine Bacteria (Auto) 201.9 10/03/18 17:00 Sodium 143 Potassium 3.7 Chloride 108 H Carbon Dioxide 30 Anion Gap 5 L BUN 20.4 H Creatinine 1.0 Est GFR (CKD-EPI)AfAm 59.91 Est GFR (CKD-EPI)NonAf 51.69 Random Glucose 100 Lactic Acid Calcium 9.2 Total Bilirubin 0.3 AST 22 ALT 23 Alkaline Phosphatase 123 H Creatine Kinase 66 Troponin I < 0.02 Total Protein 7.8 Albumin 3.8 Lipase Urine Color Urine Appearance Urine pH Ur Specific [place] Urine Protein Urine Glucose (UA) Urine Ketones Urine Blood Urine Nitrite Urine Bilirubin Urine Urobilinogen Ur Leukocyte Esterase Urine WBC (Auto) Urine RBC (Auto) Urine Casts (Auto) U Epithel Cells (Auto) Urine Bacteria (Auto) 10/03/18 17:00 RBC 4.83 MCV 92.0 MCHC 32.7 RDW 13.3 MPV 10.4 D Neutrophils % 56.8 Lymphocytes % 27.8 Monocytes % 7.5 Eosinophils % 6.4 H Basophils % 1.5 D - Medications Given in the ED: ED Medications Discontinued Medications Generic Name Dose Route Start Last Admin Trade Name Freq PRN Reason Stop Dose Admin Acetaminophen 1,000 mg 10/03/18 16:39 10/03/18 18:05 Ofirmev Injection - IVPB 10/03/18 16:40 1,000 mg ONCE ONE Administration Sodium Chloride 1,000 ml 10/03/18 16:39 10/03/18 17:45 Normal Saline - IV 10/03/18 16:40 1,000 ml ONCE ONE Administration Medical Decision Making - Medical Decision Making 10/03/18 21:13 Pt received on signout. She has a normal CT scan. Small nonobstructing renal stone. However, she has a UTI; she will be given a dose of levaquin here and she can go home with a 1 week supply of levaquin 500mg QD. Follow with PMD; he is in agreement that if pt is stable, she can go home and follow outpatient. Pt will be discharged in the care of her son. *DC/Admit/Observation/Transfer Diagnosis at time of Disposition: Abdominal pain Qualifiers: Abdominal location: left lower quadrant Qualified Code(s): R10.32 - Left lower quadrant pain - Discharge Dispostion Disposition: HOME Condition at time of disposition: Stable - Prescriptions Prescriptions: Levofloxacin [Levaquin] 500 mg PO DAILY #7 tablet - Referrals Referrals: Margareth Manzo MD [Primary Care Provider] - - Patient Instructions Printed Discharge Instructions: DI for Abdominal Pain-Adult Additional Instructions: You came to the ED for abdominal pain. We did a CT scan which did not show acute pathology. It did show some non-acute findings. A copy of the report was given to you. Follow-up with your primary care provider regarding this. Urinalysis showed you have a urinary tract infection. Antibiotics prescription sent to your pharmacy. Take as instructed. You can take [id number] motrin or tylenol for pain. Follow the instructions on the medication bottle. Follow-up with your primary care provider within 72 hours to discuss this ED visit and to further evaluate your symptoms. Call and make an appointment tomorrow morning. Your workup is not complete until you do so. Immediate medical attention is required if you develop: worsening pain, high fevers, persistent nausea, vomiting, or any new or concerning symptoms. If you think you are having an emergency, call for emergency medical services or present to the emergency department right away. - Post Discharge Activity
[2018-10-03] MEDS ORDERED: KETOROLAC TROMETHAMINE 15 MG/ML VIAL ONE (21:24)
--- NOTE | 2018-10-05 00:12 | EKG ---
Test Reason : Blood Pressure : / mmHG Vent. Rate : 080 BPM Atrial Rate : 080 BPM P-R Int : 164 ms QRS Dur : 072 ms QT Int : 376 ms P-R-T Axes : 071 043 111 degrees QTc Int : 433 ms NORMAL SINUS RHYTHM CANNOT RULE OUT ANTERIOR INFARCT (CITED ON OR BEFORE 21-JUL-2016) T WAVE ABNORMALITY, CONSIDER LATERAL ISCHEMIA ABNORMAL ECG WHEN COMPARED WITH ECG OF 19-SEP-2017 15:53, NO SIGNIFICANT CHANGE WAS FOUND Confirmed by REYES GOMEZ MD ([id number]) on 10/05/2018 12:12:01 AM Referred By: Confirmed By:REYES GOMEZ MD
== END 2018-10-03 21:53 | disposition home or self-care (01) ==
LOC: JER 13:53
PROC: 3E0233Z Introduction of Anti-inflammatory into Muscle, Percutaneous Approach (ICD-10-PCS; principal; 2018-10-03)
PROC: 3E03329 Introduction of Other Anti-infective into Peripheral Vein, Percutaneous Approach (ICD-10-PCS; 2018-10-03)
PROC: 3E033NZ Introduction of Analgesics, Hypnotics, Sedatives into Peripheral Vein, Percutaneous Approach (ICD-10-PCS; 2018-10-03)
PROC: 3E0337Z Introduction of Electrolytic and Water Balance Substance into Peripheral Vein, Percutaneous Approach (ICD-10-PCS; 2018-10-03)
DX: N39.0 Urinary tract infection, site not specified (principal); R07.9 Chest pain, unspecified; I10 Essential (primary) hypertension; E78.5 Hyperlipidemia, unspecified; E11.9 Type 2 diabetes mellitus without complications; Z79.4 Long term (current) use of insulin; F41.9 Anxiety disorder, unspecified; M54.5 Low back pain; G89.29 Other chronic pain; H40.9 Unspecified glaucoma; J44.9 Chronic obstructive pulmonary disease, unspecified
CPT/HCPCS: 36415; 74177-TC; 80053; 81003; 82550; 83605; 83690; 84484; 85025; 87086; 93005; 93010; 96365; 96372; 96375; 99284-25; J0131; Q9967

== ENCOUNTER 2018-10-08 08:04 | Emergency (ER) | payer OTHER ==
[2018-10-08 08:46] VITALS: BMI 20.6
[2018-10-08] MEDS ORDERED: FAMOTIDINE 20 MG/50 ML IVPB 20 MG/50 ML MG IVPB ONE ×2 (08:49→08:55)
[2018-10-08] MEDS ORDERED: SODIUM CHLORIDE 250 ML IV STA (08:49)
[2018-10-08 09:25] LABS: BASO % 1.4 % (0-2.0); EOS % 3.4 % (0-4.5); HEMATOCRIT 42.3 % (32.4-45.2); HEMOGLOBIN 14.1 GM/dL (10.7-15.3); LYMPH % 16.1 % (8-40); MCH 30.5 pg (25.7-33.7); MCHC 33.4 g/dl (32.0-36.0); MEAN CELL VOLUME 91.2 fl (80-96); MEAN PLT VOLUME 10.1 fl (7.5-11.1); NEUT % 73.1 % (42.8-82.8); PLATELET COUNT 281 K/MM3 (134-434); RBC 4.64 M/mm3 (3.60-5.2); RDW 12.9 % (11.6-15.6); WHITE BLOOD COUNT 10.4 K/mm3 (4.0-10.0)
[2018-10-08 09:55] LABS: ALBUMIN 3.9 g/dl (3.4-5.0); ALK PHOS 114 U/L (45-117); ANION GAP 5 MMOL/L (8-16); BILIRUBIN,TOTAL 0.5 mg/dL (0.2-1); BLOOD UREA NITROGEN 15.3 mg/dL (7-18); CALCIUM 9.9 mg/dL (8.5-10.1); CHLORIDE 102 mmol/L (98-107); CO2 34 mmol/L (21-32); CREATININE 1.2 mg/dL (0.55-1.3); GLUCOSE,RANDOM 185 mg/dL (74-106); LIPASE 43 U/L (73-393); POTASSIUM 3.5 mmol/L (3.5-5.1); SGOT/AST 16 U/L (15-37); SGPT/ALT 17 U/L (13-61); SODIUM 141 mmol/L (136-145); TOT PROT 7.6 g/dl (6.4-8.2)
[2018-10-08] MEDS ORDERED: ALPRAZolam 0.25 MG TABLET PO ONE (13:49)
[2018-10-08] MEDS ORDERED: ALPRAZolam 0.25 MG TABLET ONE (14:10)
--- NOTE | 2018-10-08 14:48 | PDOC ---
Documentation entered by Jeff Childs SCRIBE, acting as scribe for Yonathan Gaytan MD. Yonathan Gaytan MD: This documentation has been prepared by the Naz humphries Elijah, SCRIBE, under my direction and personally reviewed by me in its entirety. I confirm that the documentation accurately reflects all work, treatment, procedures, and medical decision making performed by me. History of Present Illness - General Chief Complaint: Pain, Acute Stated Complaint: ABD PAIN Time Seen by Provider: 10/08/18 08:19 History Source: Patient Exam Limitations: No Limitations - History of Present Illness Initial Comments: 10/08/18 08:54 Patient is an 83 year old female who presents to the ED with a significant past medical history of HTN, HLD, Diabetes, COPD, anxiety (on Xanax), Glaucoma and chronic low back pain who presents to the ED with intermittent upper abdominal pain beginning this morning. Patient associates nausea and 3-4 episodes of NBNB diarrhea. Patient reports that she has been on antibiotics for a kidney infection and at this time reports being asymptomatic. Denies Vomiting, fevers, chills, and painful urination. Allergies: NKA Social History: Tobacco Use (x7 cigarettes a day) Surgical History: Repair of Pelvic Fracture PCP: Dr. Manzo Past History - Past Medical History Allergies/Adverse Reactions: Allergies Allergy/AdvReac Type Severity Reaction Status Date / Time No Known Allergies Allergy Verified 09/19/17 15:00 Home Medications: Ambulatory Orders Amlodipine Besylate [Norvasc -] 10 mg PO DAILY 03/22/14 Losartan Potassium 100 mg PO DAILY 03/23/14 Acetaminophen W/ Codeine #3 [Tylenol # 3 -] 1 tab PO TID 04/20/16 Brimonidine Tartrate/Timolol [Combigan 0.2%-0.5% Eye Drops] 1 drop OU DAILY 06/01 Dorzolamide HCl [Trusopt 2%] 1 drop OU BID 04/20/16 Insulin (Novolog 70/30) [Novolog Mix 70/30 Flexpen -] 8 units SQ DAILY 04/20/16 Latanoprost 0.005% Eye Drops [Xalatan 0.005% Eye Drops -] 1 drop OU HS 04/20/16 Alprazolam [Xanax] 0.5 mg PO TID PRN 07/26/16 Albuterol Sulfate Inhaler - [Ventolin Hfa Inhaler -] 2 puff IH BID PRN 01/26/17 Glipizide 5 mg PO DAILY 01/26/17 Levofloxacin [Levaquin] 500 mg PO DAILY #7 tablet 10/03/18 Pilocarpine 2% [Pilostat 2% -] 1 drop OP BID 10/03/18 acetaZOLAMIDE [Diamox -] 250 mg PO BID 10/03/18 Famotidine [Pepcid -] 20 mg PO BID #60 tablet 10/08/18 Anemia: No Asthma: No Cancer: No Cardiac Disorders: No CVA: No COPD: Yes CHF: No Dementia: No Diabetes: Yes GI Disorders: No Disorders: No HTN: Yes Hypercholesterolemia: Yes Liver Disease: No Seizures: No Thyroid Disease: No - Surgical History Appendectomy: No Cardiac Surgery: No Cholecystectomy: No Lung Surgery: No Neurologic Surgery: Yes (SURGERY FOR HERNIATED DISC.) Orthopedic Surgery: Yes (BACK SURGERY) - Immunization History Immunization Up to Date: No - Suicide/Smoking/Psychosocial Hx Smoking History: Unknown if ever smoked Have you smoked in the past 12 months: No Number of Cigarettes Smoked Daily: 3 Information on smoking cessation initiated: No 'Breaking Loose' booklet given: 04/20/16 Hx Alcohol Use: No Drug/Substance Use Hx: No Substance Use Type: None Hx Substance Use Treatment: No Review of Systems - Review of Systems Comments:: 10/08/18 09:01 CONSTITUTIONAL: No fever, no chills, no fatigue EYES: No visual changes ENT: No ear pain, no sore throat CARDIOVASCULAR: No chest pain, no palpitations RESPIRATORY: No cough, no SOB GI: +abdominal pain +nausea, +diarrhea no vomiting, no constipation, GENITOURINARY: No dysuria, no frequency, no hematuria MUSKULOSKELETAL: No backpain, no joint pain, no myalgias SKIN: No rash NEURO: No headache *Physical Exam - Vital Signs Last Vital Signs Temp Pulse Resp BP Pulse Ox 98.2 F 96 H 16 142/76 96 10/08/18 08:07 10/08/18 08:07 10/08/18 08:07 10/08/18 08:07 10/08/18 08:07 - Physical Exam Comments: 10/08/18 09:01 CONSTITUTIONAL: Well-appearing; well-nourished; in no apparent distress HEAD: Normocephalic; atraumatic EYES: PERRL; EOM intact ENMT: +Slightly Dry mucosa. External appears normal; normal oropharynx NECK: Supple; non-tender; no cervical lymphadenopathy CARD: Normal S1, S2; no murmurs, rubs, or gallops RESP: Normal chest excursion with respiration; breath sounds clear and equal bilaterally; no wheezes, rhonchi, or rales ABD: +LLQ pain on deep palpation. No palpable organomegaly, no palpable hernias EXT: Normal ROM in all four extremities; non-tender to palpation; distal pulses intact SKIN: Warm, dry, no rash NEURO: No focal neurological deficiencies. ED Treatment Course - LABORATORY CBC & Chemistry Diagram: 10/08/18 08:53 10/08/18 08:53 - ADDITIONAL ORDERS Additional order review: Laboratory Results 10/08/18 08:53 Sodium 141 Potassium 3.5 Chloride 102 Carbon Dioxide 34 H Anion Gap 5 L BUN 15.3 Creatinine 1.2 Est GFR (CKD-EPI)AfAm 48.06 Est GFR (CKD-EPI)NonAf 41.47 Random Glucose 185 H Calcium 9.9 Total Bilirubin 0.5 AST 16 ALT 17 Alkaline Phosphatase 114 Creatine Kinase 75 Troponin I < 0.02 Total Protein 7.6 Albumin 3.9 Lipase 43 L 10/08/18 08:53 RBC 4.64 MCV 91.2 MCHC 33.4 RDW 12.9 MPV 10.1 Neutrophils % 73.1 D Lymphocytes % 16.1 D Monocytes % 6.0 Eosinophils % 3.4 Basophils % 1.4 - RADIOLOGY Radiology Studies Ordered: Category Date Time Status ABDOMEN & PELVIS CT W/O CONTR [CT] Stat CT Scan 10/08/18 08:48 Completed CHEST X-RAY PORTABLE* [RAD] Stat Radiology 10/08/18 08:47 Completed - Medications Given in the ED: ED Medications Discontinued Medications Generic Name Dose Route Start Last Admin Trade Name Freq PRN Reason Stop Dose Admin Alprazolam 0.25 mg 10/08/18 13:49 10/08/18 14:14 Xanax - PO 10/08/18 13:50 0.25 mg ONCE ONE Administration Famotidine/Sodium Chloride 20 mg in 50 mls @ 100 mls/hr 10/08/18 08:49 09:12 Pepcid 20 Mg Premixed Ivpb - IVPB 10/08/18 09:18 100 mls/hr ONCE ONE Administration Sodium Chloride 250 mls @ 250 mls/hr 10/08/18 08:49 10/08/18 09:12 Normal Saline - IV 10/08/18 09:48 250 mls/hr ASDIR STA Administration Medical Decision Making - Medical Decision Making 10/08/18 14:45 Patient is well-appearing 83-year-old female who presented with atraumatic left lower quadrant pain and several episodes of loose watery stools. In the ER, patient is awake and alert, on initial evaluation was noted to have left lower quadrant pain on deep palpation without evidence of guarding or rebound. CBC/ CMP within normal limit. CT of abdomen and pelvis reveals no evidence of acute intra-abdominal pathology. Patient's currently asymptomatic, ate a meal in the ER and has not had any more episodes of diarrhea since arriving in the emergency department. Patient seen by Dr. manzo who agrees with the plan of discharge with H2 blockers with outpatient follow-up. *DC/Admit/Observation/Transfer Diagnosis at time of Disposition: Abdominal pain Qualifiers: Abdominal location: left lower quadrant Qualified Code(s): R10.32 - Left lower quadrant pain Diarrhea Qualifiers: Diarrhea type: unspecified type Qualified Code(s): R19.7 - Diarrhea, unspecified - Discharge Dispostion Disposition: HOME Condition at time of disposition: Stable - Referrals Referrals: Margareth Manzo MD [Primary Care Provider] - - Patient Instructions Printed Discharge Instructions: DI for Abdominal Pain-Adult, DI for Diarrhea and Traveler's Diarrhea -- Adult - Post Discharge Activity - Attestations Physician Attestion: 10/08/18 14:44 The documentation was prepared by the scribe under my direct supervision. I have reviewed the documentation which correctly represents the findings, medical decision-making and critical action taken by me.
[2018-10-08 15:39] VITALS: BP 125/72; PULSE 95; TEMP 98.4
== END 2018-10-08 15:39 | disposition home or self-care (01) ==
LOC: JER 08:04
PROC: 3E033GC Introduction of Other Therapeutic Substance into Peripheral Vein, Percutaneous Approach (ICD-10-PCS; principal; 2018-10-08)
PROC: 3E0337Z Introduction of Electrolytic and Water Balance Substance into Peripheral Vein, Percutaneous Approach (ICD-10-PCS; 2018-10-08)
DX: R10.32 Left lower quadrant pain (principal); R19.7 Diarrhea, unspecified
CPT/HCPCS: 36415; 71045-TC-FY; 74176-TC; 80053; 82550; 83690; 84484; 85025; 96361; 96365; 99283-25; Q9967

== ENCOUNTER 2018-12-07 10:59 | Inpatient (IN) | payer OTHER ==
--- NOTE | 2018-12-07 11:34 | PDOC ---
History of Present Illness - General Chief Complaint: Shortness of Breath Stated Complaint: SHORTNESS OF BREATH Time Seen by Provider: 12/07/18 11:09 History Source: Patient Exam Limitations: No Limitations - History of Present Illness Initial Comments: 12/07/18 11:35 83 yo female PMH of IDDM, HTN, COPD (on nebs, does not know if she takes steroids, no home O2), Glaucoma and chronic back pain presents to the ED for 1 month of worsening productive cough and generalized weakness. Pt had antibiotics , took full course that ended Saturday and denies any improvement in symptoms and states they have worsened if anything. Pt admits to difficulty breathing with activity and worsening SOB over the past 1 month with a cough productive of yellow sputum. Denies f/c/n/v, CP, recent travel, sick contacts, all immunizations up to date Past History - Past Medical History Allergies/Adverse Reactions: Allergies Allergy/AdvReac Type Severity Reaction Status Date / Time No Known Allergies Allergy Verified 12/07/18 11:02 Home Medications: Ambulatory Orders Amlodipine Besylate [Norvasc -] 10 mg PO DAILY 03/22/14 Losartan Potassium 100 mg PO DAILY 03/23/14 Acetaminophen W/ Codeine #3 [Tylenol # 3 -] 1 tab PO TID 04/20/16 Brimonidine Tartrate/Timolol [Combigan 0.2%-0.5% Eye Drops] 1 drop OU DAILY 06/01 Dorzolamide HCl [Trusopt 2%] 1 drop OU BID 04/20/16 Insulin (Novolog 70/30) [Novolog Mix 70/30 Flexpen -] 8 units SQ DAILY 04/20/16 Latanoprost 0.005% Eye Drops [Xalatan 0.005% Eye Drops -] 1 drop OU HS 04/20/16 Alprazolam [Xanax] 0.5 mg PO TID PRN 07/26/16 Albuterol Sulfate Inhaler - [Ventolin Hfa Inhaler -] 2 puff IH BID PRN 01/26/17 Glipizide 5 mg PO DAILY 01/26/17 Levofloxacin [Levaquin] 500 mg PO DAILY #7 tablet 10/03/18 Pilocarpine 2% [Pilostat 2% -] 1 drop OP BID 10/03/18 acetaZOLAMIDE [Diamox -] 250 mg PO BID 10/03/18 Famotidine [Pepcid -] 20 mg PO BID #60 tablet 10/08/18 Anemia: No Asthma: No Cancer: No Cardiac Disorders: No CVA: No COPD: Yes CHF: No Dementia: No Diabetes: Yes GI Disorders: No Disorders: No HTN: Yes Hypercholesterolemia: Yes Liver Disease: No Seizures: No Thyroid Disease: No - Surgical History Appendectomy: No Cardiac Surgery: No Cholecystectomy: No Lung Surgery: No Neurologic Surgery: Yes (SURGERY FOR HERNIATED DISC.) Orthopedic Surgery: Yes (BACK SURGERY) - Immunization History Immunization Up to Date: No - Suicide/Smoking/Psychosocial Hx Smoking History: Current every day smoker Have you smoked in the past 12 months: No Number of Cigarettes Smoked Daily: 20 Information on smoking cessation initiated: No 'Breaking Loose' booklet given: 04/20/16 Hx Alcohol Use: No Drug/Substance Use Hx: No Substance Use Type: None Hx Substance Use Treatment: No Review of Systems - Review of Systems Constitutional: No: Chills, Fever Respiratory: Yes: Shortness of Breath, Wheezing, Productive cough Cardiac (ROS): No: Chest Pain, Edema ABD/GI: No: Constipated, Diarrhea, Nausea, Vomiting : No: Burning, Dysuria, Frequency, Flank Pain Musculoskeletal: No: Back Pain Integumentary: No: Change in Color, Rash Neurological: No: Headache, Numbness *Physical Exam - Vital Signs Last Vital Signs Temp Pulse Resp BP Pulse Ox 98.2 F 73 18 133/73 95 12/07/18 11:03 12/07/18 11:23 12/07/18 11:03 12/07/18 11:03 12/07/18 11:24 - Physical Exam General Appearance: Yes: Nourished, Appropriately Dressed. No: Apparent Distress HEENT: positive: EOMI, Normal ENT Inspection. negative: Tonsillar Erythema, Excessive drooling Neck: positive: Supple. negative: Carotid bruit Respiratory/Chest: positive: Wheezing (diffuse). negative: Accessory Muscle Use , Rapid RR Cardiovascular: positive: Regular Rhythm, Regular Rate, S1, S2. negative: Edema , JVD, Murmur Vascular Pulses: Dorsalis-Pedis (R): 4+, Doralis-Pedis (L): 4+ Gastrointestinal/Abdominal: positive: Flat, Soft. negative: Protuberent, Distended, Guarding, Rebound, Tenderness Musculoskeletal: negative: CVA Tenderness Extremity: positive: Normal Capillary Refill, Normal Inspection, Normal Range of Motion Integumentary: positive: Normal Color, Dry, Warm Neurologic: positive: maintenance tech II-XII NML intact, Fully Oriented, Alert, Normal Mood/ Affect, Normal Response, Motor Strength 07/20 ED Treatment Course - LABORATORY CBC & Chemistry Diagram: 12/07/18 12:30 12/07/18 15:14 Medical Decision Making - Medical Decision Making 12/07/18 11:57 83 yo female PMH of IDDM, HTN, COPD (on nebs, does not know if she takes steroids, no home O2), Glaucoma and chronic back pain presents to the ED for 1 month of worsening productive cough and generalized weakness. Pt had antibiotics , took full course that ended Saturday and denies any improvement in symptoms and states they have worsened if anything. Pt admits to difficulty breathing with activity and worsening SOB over the past 1 month with a cough productive of yellow sputum. Denies f/c/n/v, CP, recent travel, sick contacts, all immunizations up to date vitals WNL pt failed outpt Z pack (Called pharmacy to confirm, not on steroids) ordered duo nebs and steroids States her ADLs are very hard to complete at home due to worsening SOB Pt does not have stranner CXR pending and labs pending 12/07/18 13:14 Neg WBC Labs WNL No WBC elevation, CXR neg for acute process/infiltrate, no fevers. Pt does not currently require antibiotics EKG NSR no acute change from prior labs neg for elevated WBC 12/07/18 15:41 Case discussed with covering Dr. Pavon, agrees to have pt admitted for likely COPD exacerbation *DC/Admit/Observation/Transfer Diagnosis at time of Disposition: COPD exacerbation - Discharge Dispostion Condition at time of disposition: Stable Decision to Admit order: Yes - Referrals Referrals: Margareth Manzo MD [Primary Care Provider] - - Patient Instructions - Post Discharge Activity
[2018-12-07] MEDS ORDERED: ALBUTEROL SO4 2.5/IPRATROPIUM 0.5 INH SOL 3 ML VIAL.NEB. NEB ONE ×3 (11:41→12:01)
[2018-12-07] MEDS ORDERED: methylPREDNISolone NA SUCC 125 MG/2 ML VIAL IVPB ONE (11:58)
[2018-12-07] MEDS ORDERED: methylPREDNISolone NA SUCC 125 MG/2 ML VIAL ONE (12:01)
--- NOTE | 2018-12-07 12:21 | PDOC ---
Attending Attestation - Resident Resident Name: MarsChung - ED Attending Attestation I have performed the following: I have examined & evaluated the patient, The case was reviewed & discussed with the resident, I agree w/resident's findings & plan, Exceptions are as noted - HPI HPI: 83 yo F history DM, HTN, COPD, glaucoma, chronic back pain presents with 1 month history of productive cough, SOB, weakness. She took a course of azithromycin that ended 2 days ago, but continues to have SOB and cough with yellow sputum. Denies f/c, cp. She states she does not know if she has taken steroids recently (poor historian). - Physicial Exam PE: GENERAL: Awake, alert, and fully oriented, in no acute distress HEAD: No signs of trauma EYES: PERRLA, EOMI, sclera anicteric, conjunctiva clear ENT: Auricles normal inspection, hearing grossly normal, nares patent, oropharynx clear without exudates. Moist mucosa NECK: Normal ROM, supple, no lymphadenopathy, JVD, or masses LUNGS: Dec air entry B/L with scattered exp wheezes HEART: Regular rate and rhythm, normal S1 and S2, no murmurs, rubs or gallops ABDOMEN: Soft, nontender, normoactive bowel sounds. No guarding, no rebound. No masses EXTREMITIES: Normal range of motion, no edema. No clubbing or cyanosis. No cords, erythema, or tenderness NEUROLOGICAL: Cranial nerves II through XII grossly intact. Normal speech. Motor and sensation intact SKIN: Warm, dry, normal turgor, no rashes or lesions noted. - Medical Decision Making Pt with COPD exacerbation, recent outpatient abx, still having cough and SOB. Lung sounds decreased B/L with wheezes. Will give steroids, nebs, and contact her PMD.
[2018-12-07 12:40] LABS: BASO % 0.2 % (0-2.0); EOS % 5.9 % (0-4.5); HEMATOCRIT 39.3 % (32.4-45.2); HEMOGLOBIN 12.7 GM/dL (10.7-15.3); LYMPH % 18.8 % (8-40); MCH 29.7 pg (25.7-33.7); MCHC 32.3 g/dl (32.0-36.0); MEAN CELL VOLUME 91.9 fl (80-96); MEAN PLT VOLUME 10.1 fl (7.5-11.1); MONO % 6.3 % (3.8-10.2); NEUT % 68.8 % (42.8-82.8); PLATELET COUNT 258 K/MM3 (134-434); RBC 4.28 M/mm3 (3.60-5.2); RDW 12.8 % (11.6-15.6)
[2018-12-07 12:52] LABS: INR 0.89 (0.83-1.09); PROTHROMBIN TIME (PATIENT) 10.5 SEC (9.7-13.0)
[2018-12-07 13:41] LABS: ALBUMIN 3.2 g/dl (3.4-5.0); BILIRUBIN,TOTAL 0.3 mg/dL (0.2-1); BLOOD UREA NITROGEN 21.1 mg/dL (7-18); CREATININE 1.1 mg/dL (0.55-1.3); TOT PROT 6.9 g/dl (6.4-8.2)
[2018-12-07 13:44] LABS: POTASSIUM 6.9 mmol/L (3.5-5.1)
[2018-12-07 16:55] LABS: PH,URINE 8.5 (5.0-8.0); URINE APPEARANCE TURBID; URINE BILIRUBIN NEGATIVE (NEGATIVE); URINE COLOR YELLOW; URINE GLUCOSE (UA) TRACE (NEGATIVE); URINE KETONE TRACE (NEGATIVE); URINE LEUK ESTERASE NEGATIVE (NEGATIVE); URINE NITRITE NEGATIVE (NEGATIVE); URINE PROTEIN NEGATIVE (NEGATIVE); URINE UROBILINOGEN 0.2 mg/dL (0.2-1.0)
[2018-12-07] MEDS ORDERED: ACETAMINOPHEN 325 MG TABLET (FP) PO ONE (17:45)
[2018-12-07] MEDS ORDERED: ACETAMINOPHEN 325 MG TABLET (FP) ONE (17:47)
--- NOTE | 2018-12-08 18:23 | EKG ---
Test Reason : Blood Pressure : / mmHG Vent. Rate : 074 BPM Atrial Rate : 074 BPM P-R Int : 162 ms QRS Dur : 068 ms QT Int : 406 ms P-R-T Axes : 072 042 099 degrees QTc Int : 450 ms NORMAL SINUS RHYTHM T WAVE ABNORMALITY, CONSIDER LATERAL ISCHEMIA ABNORMAL ECG WHEN COMPARED WITH ECG OF 03-OCT-2018 14:05, NO SIGNIFICANT CHANGE WAS FOUND Confirmed by VIET HUFF MD ([id number]) on 12/08/2018 6:23:22 PM Referred By: Confirmed By:VIET HUFF MD
[2018-12-08] MEDS: ALPRAZolam 0.25 MG TABLET PO PRN (20:28)
[2018-12-08] MEDS ORDERED: CIPROFLOXACIN 200 MG/D5W 100 ML IVPB SCH (22:00)
[2018-12-08 22:11] VITALS: BMI 19.0
[2018-12-08] MEDS ORDERED: ALBUTEROL SO4 0.083% IH SOL 2.5 MG/3 ML VIAL.NEB. NEB PRN (22:21)
[2018-12-08] MEDS: guaiFENesin/D-METHORPHAN HB 10 ML UNIT-DOSE CUPS PO PRN (22:57)
[2018-12-08] MEDS: INSULIN SLIDING SCALE (NOVOLOG) 1 VIAL SQ SCH (22:57)
[2018-12-09] MEDS: methylPREDNISolone NA SUCC 40 MG/1 ML VIAL IVPUSH SCH ×3 (01:46→17:07)
[2018-12-09] MEDS: ALPRAZolam 0.25 MG TABLET PO PRN ×3 (04:41→20:46)
[2018-12-09] MEDS ORDERED: ONDANSETRON 4 MG/2 ML VIAL IVPUSH ONE (06:15)
[2018-12-09] MEDS: glipiZIDE 5 MG TABLET (FP) PO SCH (06:16)
[2018-12-09] MEDS: INSULIN SLIDING SCALE (NOVOLOG) 1 VIAL SQ SCH ×4 (06:16→21:00)
[2018-12-09] MEDS ORDERED: SIMETHICONE 80 MG TAB.CHEW (FP) PO ONE (07:00)
--- NOTE | 2018-12-09 08:46 | PN ---
Progress Note, Physician Chief Complaint: C/O nausea all night History of Present Illness: admitted with exacerbation of COPR - Current Medication List Current Medications: Active Medications Albuterol Sulfate (Ventolin 0.083% Nebulizer Soln -) 1 amp NEB Q4H PRN PRN Reason: SHORT OF BREATH/WHEEZING Alprazolam (Xanax -) 0.5 mg PO Q8H PRN PRN Reason: ANXIETY Last Admin: 12/09/18 04:41 Dose: 0.5 mg Codeine Sulfate (Codeine Sulfate -) 30 mg PO Q6H PRN PRN Reason: PAIN Glipizide (Glucotrol -) 5 mg PO DAILY@0700 [facility] Last Admin: 12/09/18 06:16 Dose: Not Given Guaifenesin (Robitussin Dm -) 10 ml PO Q4H PRN PRN Reason: COUGH Last Admin: 12/08/18 22:57 Dose: 10 ml Levofloxacin (Levaquin 250 Mg Premixed Ivpb -) 250 mg in 50 mls @ 50 mls/hr IVPB DAILY [facility] Last Admin: 12/08/18 20:27 Dose: 50 mls/hr Insulin Aspart (Novolog Vial Sliding Scale -) 1 vial SQ ACHS [facility]; Protocol Last Admin: 12/09/18 06:16 Dose: 4 units Losartan Potassium (Cozaar -) 100 mg PO DAILY [facility] Methylprednisolone Sodium Succinate (Solu-Medrol -) 40 mg IVPUSH Q8H-IV ERAST[facility] Last Admin: 12/09/18 01:46 Dose: 40 mg - Objective Vital Signs: Vital Signs Temperature 97.6 F 12/09/18 06:19 Pulse Rate 102 H 12/09/18 06:19 Respiratory Rate 18 12/09/18 06:19 Blood Pressure 162/78 12/09/18 06:19 O2 Sat by Pulse Oximetry (%) 97 12/08/18 21:00 Constitutional: Yes: Anxious, Cachectic Eyes: Yes: WNL HENT: Yes: WNL Neck: Yes: WNL Cardiovascular: Yes: Regular Rate and Rhythm Respiratory: Yes: On Nasal O2, Poor Air Entry Gastrointestinal: Yes: WNL ...Rectal Exam: Yes: Deferred Breast(s): Yes: WNL Musculoskeletal: Yes: Muscle Weakness Edema: No Neurological: Yes: Alert Labs: CBC, BMP 12/07/18 12:30 12/07/18 15:14 INR, PTT INR 0.89 (0.83-1.09) 12/07/18 12:30 - ....Imaging X-ray: Image Reviewed Assessment/Plan Pulmonary consult Dr Farley
[2018-12-09] MEDS: LOSARTAN POTASSIUM 50 MG TABLET (FP) PO SCH (09:10)
--- NOTE | 2018-12-09 10:33 | HP ---
DATE OF ADMISSION: 12/07/2018 DATE OF DICTATION: 12/08/2018 HISTORY: This is an 83-year-old female known to me for many years. Known to have hypertension, ASHD, COPD. Came to the emergency room last night with complaints of short of breath, cough. She was taking Z-Joon, no relief. In the ER she was found out to be exacerbation of COPD. Got admitted. This morning she is still complaining of short of breath. PHYSICAL EXAMINATION: Vital Signs: BP 150/70, temperature 98, pulse 95, respirations 24. HEENT: Unremarkable. Neck: Supple. No JVD. Lungs: Breath sounds produced on both sides. Heart: S1, S2 normal with no S3, S4. Abdomen: Soft, nontender. Extremities: Legs, no edema. Neurologic: Grossly normal. LABORATORY REPORTS: Chemistry: Sodium 139, potassium 4.1, chloride 103, CO2 is 32, BUN 21, creatinine 1.1. WBC 10, hemoglobin 12.7, platelets 258. Chest x-ray: No infiltrate. IMPRESSION: Acute exacerbation of chronic obstructive pulmonary disease, arteriosclerotic heart disease, hypertension. PLAN: Admit to regular floor. Pulmonary consult, Dr. Farley. Chetan [id number]
--- NOTE | 2018-12-09 10:43 | CON.PULM ---
Consult Consult Specialty:: PULMONARY Referred by:: Dr Manzo Reason for Consultation:: COPD - History of Present Illness Chief Complaint: shortness of breath History of Present Illness: 83yo female with h/o HTN, DM, COPD, smoker who was admitted with worsening shortness of breath and cough. Denies chest pain or palpitations. No fevers, chills or sweats. +cough productive of yellow sputum and wheezing. Was prescribed a z-pack with temporary improvement. She has been experiencing worsening symptoms for the past month. She is an active smoker, started at age 17, smokes about 1/2 PPD. 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 - History Source History Provided By: Patient, Medical Record Limitations to Obtaining History: No Limitations - Past Medical History Cardio/Vascular: Yes: HTN Musculoskeletal: Yes: Chronic low back pain Endocrine: Yes: Diabetes Mellitus - Alcohol/Substance Use Hx Alcohol Use: No - Smoking History Smoking history: Current every day smoker Have you smoked in the past 12 months: Yes Aproximately how many cigarettes per day: 7 - Social History ADL: Independent History of Recent Travel: No Home Medications - Allergies Allergies/Adverse Reactions: Allergies Allergy/AdvReac Type Severity Reaction Status Date / Time No Known Allergies Allergy Verified 12/07/18 11:02 - Home Medications Home Medications: Ambulatory Orders Amlodipine Besylate [Norvasc -] 10 mg PO DAILY 03/22/14 Losartan Potassium 100 mg PO DAILY 03/23/14 Acetaminophen W/ Codeine #3 [Tylenol # 3 -] 1 tab PO TID 04/20/16 Brimonidine Tartrate/Timolol [Combigan 0.2%-0.5% Eye Drops] 1 drop OU DAILY 06/01 Dorzolamide HCl [Trusopt 2%] 1 drop OU BID 04/20/16 Insulin (Novolog 70/30) [Novolog Mix 70/30 Flexpen -] 8 units SQ DAILY 04/20/16 Latanoprost 0.005% Eye Drops [Xalatan 0.005% Eye Drops -] 1 drop OU HS 04/20/16 Alprazolam [Xanax] 0.5 mg PO TID PRN 07/26/16 Albuterol Sulfate Inhaler - [Ventolin Hfa Inhaler -] 2 puff IH BID PRN 01/26/17 Glipizide 5 mg PO DAILY 01/26/17 Levofloxacin [Levaquin] 500 mg PO DAILY #7 tablet 10/03/18 Pilocarpine 2% [Pilostat 2% -] 1 drop OP BID 10/03/18 acetaZOLAMIDE [Diamox -] 250 mg PO BID 10/03/18 Famotidine [Pepcid -] 20 mg PO BID #60 tablet 10/08/18 Review of Systems - Review of Systems Constitutional: reports: Weakness. denies: Chills, Fever Eyes: denies: Recent Change in Vision HENT: denies: Nasal Congestion, Throat Pain Neck: denies: Stiffness, Tenderness Cardiovascular: reports: Shortness of Breath. denies: Chest Pain, Edema, Palpitations Respiratory: reports: Cough, SOB on Exertion, Wheezing Gastrointestinal: denies: Abdominal Pain, Nausea, Vomiting Genitourinary: denies: Dysuria, Hematuria Neurological: denies: Dizziness, Headache Endocrine: denies: Unexplained Weight Loss Physical Exam Vital Sings: Vital Signs Temperature 97.6 F 12/09/18 10:00 Pulse Rate 106 H 12/09/18 10:00 Respiratory Rate 22 H 12/09/18 10:00 Blood Pressure 150/74 12/09/18 10:00 O2 Sat by Pulse Oximetry (%) 96 12/09/18 09:00 Constitutional: Yes: Calm Eyes: Yes: Conjunctiva Clear, EOM Intact HENT: Yes: Atraumatic, Normocephalic Neck: Yes: Supple, Trachea Midline Cardiovascular: Yes: Regular Rate and Rhythm Respiratory: Yes: Poor Air Entry, Wheezes (scattered) ...Clubbing: No Gastrointestinal: Yes: Normal Bowel Sounds, Soft. No: Tenderness Edema: No Neurological: Yes: Alert, Oriented Labs: CBC, BMP 12/07/18 12:30 12/07/18 15:14 Imaging - Results Chest X-ray: Report Reviewed, Image Reviewed (no infiltrates) Problem List - Problems (1) COPD exacerbation Code(s): J44.1 - CHRONIC OBSTRUCTIVE PULMONARY DISEASE W (ACUTE) EXACERBATION Assessment/Plan Acute COPD Exacerbation Acute Bronchitis HTN DM Smoker - IV medrol - inhaled bronchodilators standing and PRN - on empiric antibiotics - O2 to keep SpO2 >90% - smoking cessation discussed - outpt PFTs - DVT prophylaxis Thank you for this consult Deon Fleming MD
[2018-12-09] MEDS: guaiFENesin/D-METHORPHAN HB 10 ML UNIT-DOSE CUPS PO PRN ×3 (10:57→20:45)
[2018-12-09] MEDS: SIMETHICONE 80 MG TAB.CHEW (FP) PO PRN ×2 (14:19→20:46)
[2018-12-09] MEDS: PANTOPRAZOLE 40 MG TABLET (FP) PO SCH ×2 (14:19→21:00)
[2018-12-10] MEDS: methylPREDNISolone NA SUCC 40 MG/1 ML VIAL IVPUSH SCH ×3 (01:21→17:16)
[2018-12-10] MEDS: SIMETHICONE 80 MG TAB.CHEW (FP) PO PRN ×2 (04:17→19:07)
[2018-12-10] MEDS: ALPRAZolam 0.25 MG TABLET PO PRN ×2 (04:22→16:46)
[2018-12-10] MEDS: INSULIN SLIDING SCALE (NOVOLOG) 1 VIAL SQ SCH ×4 (06:27→21:18)
[2018-12-10] MEDS: glipiZIDE 5 MG TABLET (FP) PO SCH (06:27)
--- NOTE | 2018-12-10 09:10 | PN ---
Progress Note, Physician Chief Complaint: Feels better History of Present Illness: Dr Flemings pulmonery consult appreciated - Current Medication List Current Medications: Active Medications Albuterol Sulfate (Ventolin 0.083% Nebulizer Soln -) 1 amp NEB Q4H PRN PRN Reason: SHORT OF BREATH/WHEEZING Alprazolam (Xanax -) 0.5 mg PO Q6H PRN PRN Reason: ANXIETY Last Admin: 12/10/18 04:22 Dose: 0.5 mg Codeine Sulfate (Codeine Sulfate -) 30 mg PO Q6H PRN PRN Reason: PAIN Glipizide (Glucotrol -) 5 mg PO DAILY@0700 [facility] Last Admin: 12/10/18 06:27 Dose: Not Given Guaifenesin (Robitussin Dm -) 10 ml PO Q4H PRN PRN Reason: COUGH Last Admin: 12/09/18 20:45 Dose: 10 ml Levofloxacin (Levaquin 250 Mg Premixed Ivpb -) 250 mg in 50 mls @ 50 mls/hr IVPB DAILY [facility] Last Admin: 12/09/18 09:10 Dose: 50 mls/hr Insulin Aspart (Novolog Vial Sliding Scale -) 1 vial SQ ACHS [facility]; Protocol Last Admin: 12/10/18 06:27 Dose: 6 units Losartan Potassium (Cozaar -) 100 mg PO DAILY [facility] Last Admin: 12/09/18 09:10 Dose: 100 mg Methylprednisolone Sodium Succinate (Solu-Medrol -) 40 mg IVPUSH Q8H-IV [facility] Last Admin: 12/10/18 01:21 Dose: 40 mg Pantoprazole Sodium (Protonix -) 40 mg PO BID [facility] Last Admin: 12/09/18 21:00 Dose: 40 mg Simethicone (Mylicon -) 80 mg PO Q6H PRN PRN Reason: GAS Last Admin: 12/10/18 04:17 Dose: 80 mg - Objective Vital Signs: Vital Signs Temperature 97.7 F 12/10/18 06:08 Pulse Rate 95 H 12/10/18 06:08 Respiratory Rate 20 12/10/18 06:08 Blood Pressure 155/72 12/10/18 06:08 O2 Sat by Pulse Oximetry (%) 96 12/09/18 21:00 Constitutional: Yes: No Distress Eyes: Yes: WNL HENT: Yes: WNL Neck: Yes: Supple Cardiovascular: Yes: WNL Respiratory: Yes: Poor Air Entry, SOB on Exertion Gastrointestinal: Yes: WNL ...Rectal Exam: Yes: WNL Genitourinary: Yes: WNL Breast(s): Yes: WNL Musculoskeletal: Yes: Muscle Weakness Additional Findings/Remarks: Urine grew group D strep Labs: CBC, BMP 12/07/18 12:30 12/07/18 15:14 INR, PTT INR 0.89 (0.83-1.09) 12/07/18 12:30 Assessment/Plan continue same trt
[2018-12-10] MEDS: LOSARTAN POTASSIUM 50 MG TABLET (FP) PO SCH (09:47)
[2018-12-10] MEDS: PANTOPRAZOLE 40 MG TABLET (FP) PO SCH ×2 (09:47→21:18)
[2018-12-10] MEDS: guaiFENesin/D-METHORPHAN HB 10 ML UNIT-DOSE CUPS PO PRN ×3 (09:47→22:13)
[2018-12-10] MEDS ORDERED: INSULIN (NOVOLOG) ASPART 100 UNITS/ML 10ML VIAL ONE ×2 (12:49→20:29)
--- NOTE | 2018-12-10 14:19 | PN ---
Progress Note (short form) - Note Progress Note: PULMONARY Feels better but still dyspneic with exertion. Less cough and wheezing. Vital Signs Period Temp Pulse Resp BP Sys/Elizalde Pulse Ox Last 24 Hr 97.7 F-98.5 F 91-98 20-20 133-155/72-77 96 Gen: NAD at rest Heart: RRR Lung: scattered rhonchi, wheezes Abd: soft, nontender Ext: no edema CBC, BMP 12/07/18 12:30 12/07/18 15:14 Active Medications Albuterol Sulfate (Ventolin 0.083% Nebulizer Soln -) 1 amp NEB Q4H PRN PRN Reason: SHORT OF BREATH/WHEEZING Alprazolam (Xanax -) 0.5 mg PO Q6H PRN PRN Reason: ANXIETY Last Admin: 12/10/18 04:22 Dose: 0.5 mg Codeine Sulfate (Codeine Sulfate -) 30 mg PO Q6H PRN PRN Reason: PAIN Glipizide (Glucotrol -) 5 mg PO DAILY@0700 [facility] Last Admin: 12/10/18 06:27 Dose: Not Given Guaifenesin (Robitussin Dm -) 10 ml PO Q4H PRN PRN Reason: COUGH Last Admin: 12/10/18 09:47 Dose: 10 ml Levofloxacin (Levaquin 250 Mg Premixed Ivpb -) 250 mg in 50 mls @ 50 mls/hr IVPB DAILY [facility] Last Admin: 12/10/18 09:47 Dose: 50 mls/hr Insulin Aspart (Novolog Vial Sliding Scale -) 1 vial SQ ACHS [facility]; Protocol Last Admin: 12/10/18 12:51 Dose: 4 units Losartan Potassium (Cozaar -) 100 mg PO DAILY [facility] Last Admin: 12/10/18 09:47 Dose: 100 mg Methylprednisolone Sodium Succinate (Solu-Medrol -) 40 mg IVPUSH Q8H-IV [facility] Last Admin: 12/10/18 09:47 Dose: 40 mg Pantoprazole Sodium (Protonix -) 40 mg PO BID [facility] Last Admin: 12/10/18 09:47 Dose: 40 mg Simethicone (Mylicon -) 80 mg PO Q6H PRN PRN Reason: GAS Last Admin: 12/10/18 04:17 Dose: 80 mg A/P Acute COPD Exacerbation Acute Bronchitis HTN DM Smoker - continue medrol at same dose - inhaled bronchodilators standing and PRN - on empiric antibiotics - O2 to keep SpO2 >90% - smoking cessation discussed - outpt PFTs - DVT prophylaxis Problem List - Problems (1) COPD exacerbation Code(s): J44.1 - CHRONIC OBSTRUCTIVE PULMONARY DISEASE W (ACUTE) EXACERBATION
[2018-12-10] MEDS: CODEINE SO4 30 MG TABLET PO PRN (22:13)
[2018-12-11] MEDS: SIMETHICONE 80 MG TAB.CHEW (FP) PO PRN ×3 (01:12→20:53)
[2018-12-11] MEDS: methylPREDNISolone NA SUCC 40 MG/1 ML VIAL IVPUSH SCH ×3 (02:38→17:11)
[2018-12-11] MEDS: ALPRAZolam 0.25 MG TABLET PO PRN ×4 (02:38→22:47)
[2018-12-11] MEDS: guaiFENesin/D-METHORPHAN HB 10 ML UNIT-DOSE CUPS PO PRN ×3 (06:09→20:53)
[2018-12-11] MEDS: glipiZIDE 5 MG TABLET (FP) PO SCH (06:34)
[2018-12-11] MEDS: CODEINE SO4 30 MG TABLET PO PRN ×2 (06:34→13:56)
[2018-12-11] MEDS: INSULIN SLIDING SCALE (NOVOLOG) 1 VIAL SQ SCH ×4 (06:35→21:01)
--- NOTE | 2018-12-11 09:18 | PN ---
Progress Note, Physician Chief Complaint: Feels better - Current Medication List Current Medications: Active Medications Albuterol Sulfate (Ventolin 0.083% Nebulizer Soln -) 1 amp NEB Q4H PRN PRN Reason: SHORT OF BREATH/WHEEZING Alprazolam (Xanax -) 0.5 mg PO Q6H PRN PRN Reason: ANXIETY Last Admin: 12/11/18 02:38 Dose: 0.5 mg Codeine Sulfate (Codeine Sulfate -) 30 mg PO Q6H PRN PRN Reason: PAIN Last Admin: 12/11/18 06:34 Dose: 30 mg Glipizide (Glucotrol -) 5 mg PO DAILY@0700 [facility] Last Admin: 12/11/18 06:34 Dose: 5 mg Guaifenesin (Robitussin Dm -) 10 ml PO Q4H PRN PRN Reason: COUGH Last Admin: 12/11/18 06:09 Dose: 10 ml Levofloxacin (Levaquin 250 Mg Premixed Ivpb -) 250 mg in 50 mls @ 50 mls/hr IVPB DAILY [facility] Last Admin: 12/10/18 09:47 Dose: 50 mls/hr Insulin Aspart (Novolog Vial Sliding Scale -) 1 vial SQ ACHS [facility]; Protocol Last Admin: 12/11/18 06:35 Dose: 4 units Losartan Potassium (Cozaar -) 100 mg PO DAILY [facility] Last Admin: 12/10/18 09:47 Dose: 100 mg Methylprednisolone Sodium Succinate (Solu-Medrol -) 40 mg IVPUSH Q8H-IV [facility] Last Admin: 12/11/18 02:38 Dose: 40 mg Pantoprazole Sodium (Protonix -) 40 mg PO BID [facility] Last Admin: 12/10/18 21:18 Dose: 40 mg Simethicone (Mylicon -) 80 mg PO Q6H PRN PRN Reason: GAS Last Admin: 12/11/18 01:12 Dose: 80 mg - Objective Vital Signs: Vital Signs Temperature 97.9 F 12/11/18 06:06 Pulse Rate 102 H 12/11/18 06:06 Respiratory Rate 20 12/11/18 06:06 Blood Pressure 157/69 12/11/18 06:06 O2 Sat by Pulse Oximetry (%) 96 12/10/18 21:00 Constitutional: Yes: No Distress Eyes: Yes: WNL HENT: Yes: WNL Neck: Yes: WNL Cardiovascular: Yes: WNL Respiratory: Yes: Poor Air Entry Gastrointestinal: Yes: WNL ...Rectal Exam: Yes: WNL Genitourinary: Yes: WNL Breast(s): Yes: WNL Musculoskeletal: Yes: Muscle Weakness Extremities: Yes: WNL Neurological: Yes: Alert Psychiatric: Yes: Alert Labs: CBC, BMP 12/07/18 12:30 12/07/18 15:14 INR, PTT INR 0.89 (0.83-1.09) 12/07/18 12:30 Assessment/Plan May need SNF
[2018-12-11] MEDS: LOSARTAN POTASSIUM 50 MG TABLET (FP) PO SCH (09:21)
[2018-12-11] MEDS: PANTOPRAZOLE 40 MG TABLET (FP) PO SCH ×2 (09:22→21:01)
[2018-12-11] MEDS: POLYETHYLENE GLYCOL 3350 119 GM BTL PO SCH ×2 (10:07→21:01)
--- NOTE | 2018-12-11 10:24 | PN ---
Progress Note (short form) - Note Progress Note: PULMONARY Feels better but still dyspneic with exertion. Vital Signs Period Temp Pulse Resp BP Sys/Elizalde Pulse Ox Last 24 Hr 97.9 F-98.5 F 81-104 18-201 132-160/69-96 96-96 Gen: NAD at rest Heart: RRR Lung: distant breath sounds, no wheezes appreciated Abd: soft, nontender Ext: no edema CBC, BMP 12/07/18 12:30 12/07/18 15:14 Active Medications Albuterol Sulfate (Ventolin 0.083% Nebulizer Soln -) 1 amp NEB Q4H PRN PRN Reason: SHORT OF BREATH/WHEEZING Alprazolam (Xanax -) 0.5 mg PO Q6H PRN PRN Reason: ANXIETY Last Admin: 12/11/18 02:38 Dose: 0.5 mg Codeine Sulfate (Codeine Sulfate -) 30 mg PO Q6H PRN PRN Reason: PAIN Last Admin: 12/11/18 06:34 Dose: 30 mg Glipizide (Glucotrol -) 5 mg PO DAILY@0700 [facility] Last Admin: 12/11/18 06:34 Dose: 5 mg Guaifenesin (Robitussin Dm -) 10 ml PO Q4H PRN PRN Reason: COUGH Last Admin: 12/11/18 06:09 Dose: 10 ml Levofloxacin (Levaquin 250 Mg Premixed Ivpb -) 250 mg in 50 mls @ 50 mls/hr IVPB DAILY [facility] Last Admin: 12/11/18 09:22 Dose: 50 mls/hr Insulin Aspart (Novolog Vial Sliding Scale -) 1 vial SQ ACHS [facility]; Protocol Last Admin: 12/11/18 06:35 Dose: 4 units Losartan Potassium (Cozaar -) 100 mg PO DAILY [facility] Last Admin: 12/11/18 09:21 Dose: 100 mg Methylprednisolone Sodium Succinate (Solu-Medrol -) 40 mg IVPUSH Q8H-IV [facility] Last Admin: 12/11/18 09:22 Dose: 40 mg Pantoprazole Sodium (Protonix -) 40 mg PO BID [facility] Last Admin: 12/11/18 09:22 Dose: 40 mg Polyethylene Glycol (Miralax (For Daily Use) -) 17 gm PO BID [facility] Last Admin: 12/11/18 10:07 Dose: 17 gm Simethicone (Mylicon -) 80 mg PO Q6H PRN PRN Reason: GAS Last Admin: 12/11/18 01:12 Dose: 80 mg A/P Acute COPD Exacerbation Acute Bronchitis HTN DM Smoker - continue medrol at same dose - can likely change steroids to PO prednisone 40mg daily in AM - inhaled bronchodilators standing and PRN - on empiric antibiotics - O2 to keep SpO2 >90% - smoking cessation discussed - outpt PFTs - DVT prophylaxis Problem List - Problems (1) COPD exacerbation Code(s): J44.1 - CHRONIC OBSTRUCTIVE PULMONARY DISEASE W (ACUTE) EXACERBATION
[2018-12-11] MEDS ORDERED: INSULIN (NOVOLOG) ASPART 100 UNITS/ML 10ML VIAL ONE (11:06)
[2018-12-12] MEDS: methylPREDNISolone NA SUCC 40 MG/1 ML VIAL IVPUSH SCH (01:05)
[2018-12-12] MEDS: SIMETHICONE 80 MG TAB.CHEW (FP) PO PRN (05:17)
[2018-12-12] MEDS: ALPRAZolam 0.25 MG TABLET PO PRN ×2 (05:17→11:36)
[2018-12-12] MEDS: INSULIN SLIDING SCALE (NOVOLOG) 1 VIAL SQ SCH ×3 (06:17→16:43)
[2018-12-12] MEDS: glipiZIDE 5 MG TABLET (FP) PO SCH (06:17)
[2018-12-12] MEDS: LOSARTAN POTASSIUM 50 MG TABLET (FP) PO SCH (09:37)
[2018-12-12] MEDS: PANTOPRAZOLE 40 MG TABLET (FP) PO SCH (09:37)
[2018-12-12] MEDS: guaiFENesin/D-METHORPHAN HB 10 ML UNIT-DOSE CUPS PO PRN (09:38)
[2018-12-12] MEDS: POLYETHYLENE GLYCOL 3350 119 GM BTL PO SCH (09:44)
[2018-12-12 09:48] VITALS: PULSE 94
[2018-12-12 17:14] VITALS: BP 149/82; TEMP 97.8
== END 2018-12-12 17:34 | DRG 191 ==
LOC: JER 10:59 → JERBED 15:44 → J7W 12-08 18:23
PROVIDERS: ADMIT Internal Medicine; ATTEND Internal Medicine
DX: J44.1 Chronic obstructive pulmonary disease with (acute) exacerbation (principal); E44.0 Moderate protein-calorie malnutrition; E11.9 Type 2 diabetes mellitus without complications; I10 Essential (primary) hypertension; J44.9 Chronic obstructive pulmonary disease, unspecified; H40.9 Unspecified glaucoma; E78.5 Hyperlipidemia, unspecified; M54.5 Low back pain; J20.9 Acute bronchitis, unspecified; J44.0 Chronic obstructive pulmonary disease with (acute) lower respiratory infection; F17.210 Nicotine dependence, cigarettes, uncomplicated
CPT/HCPCS: 36415; 71045-TC-FY; 80053; 81003; 82550; 82553; 82962; 84132; 84484; 85025; 85610; 87040; 87086; 87186; 93005; 93010; 97116-GP; 97161-GP; 99284-25

== ENCOUNTER 2019-04-24 14:18 | Inpatient (IN) | payer OTHER ==
--- NOTE | 2019-04-24 15:29 | PDOC ---
History of Present Illness - General Chief Complaint: Weakness Stated Complaint: GENERALIZED SICKNESS History Source: Patient Exam Limitations: No Limitations - History of Present Illness Initial Comments: 04/24/19 15:18 83 yo female DM, HTN, COPD presents to the ED for diffuse weakness and bilateral ankle swelling/pain. Pt placed on steroids 1 month ago for COPD and had progressively worsening fatigue/weakness and lower limb swelling. Pt recently treated in hospital and DC from rehab after COPD exacerbation. States over the last 2 weeks, pt unable to complete adls, very fatigued and becomes extremely SOB with minimal activity. Pt sits up to sleep and requires a fan to blow air on her Denies F/C/N/V Past History - Past Medical History Allergies/Adverse Reactions: Allergies Allergy/AdvReac Type Severity Reaction Status Date / Time No Known Allergies Allergy Verified 04/24/19 14:47 Home Medications: Ambulatory Orders Amlodipine Besylate [Norvasc -] 10 mg PO DAILY 03/22/14 Losartan Potassium 100 mg PO DAILY 03/23/14 Acetaminophen W/ Codeine #3 [Tylenol # 3 -] 1 tab PO TID 04/20/16 Brimonidine Tartrate/Timolol [Combigan 0.2%-0.5% Eye Drops] 1 drop OU DAILY 06/01 Dorzolamide HCl [Trusopt 2%] 1 drop OU BID 04/20/16 Insulin (Novolog 70/30) [Novolog Mix 70/30 Flexpen -] 8 units SQ DAILY 04/20/16 Latanoprost 0.005% Eye Drops [Xalatan 0.005% Eye Drops -] 1 drop OU HS 04/20/16 Alprazolam [Xanax] 0.5 mg PO TID PRN 07/26/16 Albuterol Sulfate Inhaler - [Ventolin Hfa Inhaler -] 2 puff IH BID PRN 01/26/17 Glipizide 5 mg PO DAILY 01/26/17 Levofloxacin [Levaquin] 500 mg PO DAILY #7 tablet 10/03/18 Pilocarpine 2% [Pilostat 2% -] 1 drop OP BID 10/03/18 acetaZOLAMIDE [Diamox -] 250 mg PO BID 10/03/18 Famotidine [Pepcid -] 20 mg PO BID #60 tablet 10/08/18 Anemia: No Asthma: No Cancer: No Cardiac Disorders: No CVA: No COPD: Yes CHF: Yes Dementia: No Diabetes: Yes GI Disorders: Yes (GERD) Disorders: No HTN: Yes Hypercholesterolemia: Yes Liver Disease: No Seizures: No Thyroid Disease: No - Surgical History Appendectomy: No Cardiac Surgery: No Cholecystectomy: No Lung Surgery: No Neurologic Surgery: Yes (SURGERY FOR HERNIATED DISC.) Orthopedic Surgery: Yes (BACK SURGERY) - Immunization History Immunization Up to Date: No - Psycho Social/Smoking Cessation Hx Smoking History: Current every day smoker Have you smoked in the past 12 months: Yes Number of Cigarettes Smoked Daily: 2 Information on smoking cessation initiated: Yes 'Breaking Loose' booklet given: 12/08/18 Hx Alcohol Use: No Drug/Substance Use Hx: No Substance Use Type: None Hx Substance Use Treatment: No Review of Systems - Review of Systems Constitutional: Yes: See HPI HEENTM: Yes: See HPI Respiratory: Yes: See HPI Cardiac (ROS): Yes: See HPI ABD/GI: Yes: See HPI : Yes: See HPI Musculoskeletal: Yes: See HPI Integumentary: Yes: See HPI Neurological: Yes: See HPI *Physical Exam - Vital Signs Last Vital Signs Temp Pulse Resp BP Pulse Ox 98.7 F 91 H 16 155/74 99 04/24/19 14:39 04/24/19 14:39 04/24/19 14:39 04/24/19 14:39 04/24/19 14:39 - Physical Exam General Appearance: Yes: Nourished, Appropriately Dressed. No: Apparent Distress HEENT: positive: EOMI Neck: positive: Supple. negative: Carotid bruit Respiratory/Chest: positive: Lungs Clear, Normal Breath Sounds. negative: Respiratory Distress, Accessory Muscle Use, Crackles, Rales, Rhonchi, Stridor, Wheezing Cardiovascular: positive: Regular Rhythm, Regular Rate, S1, S2, Edema ( bilateral pitting). negative: JVD, Murmur Vascular Pulses: Dorsalis-Pedis (R): 3+, Doralis-Pedis (L): 3+ Gastrointestinal/Abdominal: positive: Flat, Soft. negative: Pulsatile Mass, Protuberent, Distended, Guarding, Rebound, Tenderness Musculoskeletal: negative: CVA Tenderness Extremity: positive: Normal Capillary Refill, Normal Inspection, Normal Range of Motion Integumentary: positive: Normal Color, Dry, Warm Neurologic: positive: Fully Oriented, Alert, Normal Mood/Affect, Normal Response ED Treatment Course - LABORATORY CBC & Chemistry Diagram: 04/24/19 16:30 04/24/19 16:30 Medical Decision Making - Medical Decision Making 04/24/19 18:55 83 yo female DM, HTN, COPD presents to the ED for diffuse weakness and bilateral ankle swelling/pain. Pt placed on steroids 1 month ago for COPD and had progressively worsening fatigue/weakness and lower limb swelling. Pt recently treated in hospital and DC from rehab after COPD exacerbation. States over the last 2 weeks, pt unable to complete adls, very fatigued and becomes extremely SOB with minimal activity. Pt sits up to sleep and requires a fan to blow air on her Denies F/C/N/V vitals WNL DDX INLT: COPD, CHF Bedside sono shows B lines and BNP 2500 Given 40 mg lasix IV Discussed case with PCP Jovany agrees to admission Discharge - Discharge Information Problems reviewed: Yes Clinical Impression/Diagnosis: CHF (congestive heart failure) Condition: Stable - Admission Yes - Follow up/Referral Referrals: Margareth Manzo MD [Primary Care Provider] - - Patient Discharge Instructions - Post Discharge Activity
--- NOTE | 2019-04-24 16:09 | PDOC ---
Attending Attestation - Resident Resident Name: Chung Crews - ED Attending Attestation I have performed the following: I have examined & evaluated the patient, The case was reviewed & discussed with the resident, I agree w/resident's findings & plan, Exceptions are as noted
[2019-04-24 17:18] LABS: BASO % 0.4 % (0-2.0); EOS % 0.1 % (0-4.5); LYMPH % 8.8 % (8-40); MCH 30.8 pg (25.7-33.7); MCHC 32.5 g/dl (32.0-36.0); MEAN CELL VOLUME 94.9 fl (80-96); MEAN PLT VOLUME 10.9 fl (7.5-11.1); MONO % 3.7 % (3.8-10.2); PLATELET COUNT 254 K/MM3 (134-434); RBC 4.53 M/mm3 (3.60-5.2); WHITE BLOOD COUNT 14.8 K/mm3 (4.0-10.0)
[2019-04-24 17:29] LABS: INR 0.82 (0.83-1.09); PROTHROMBIN TIME (PATIENT) 9.7 SEC (9.7-13.0)
[2019-04-24 17:48] LABS: ALBUMIN 3.1 g/dl (3.4-5.0); BILIRUBIN,TOTAL 0.4 mg/dL (0.2-1); BLOOD UREA NITROGEN 13.1 mg/dL (7-18); CALCIUM 9.2 mg/dL (8.5-10.1); CREATININE 1.1 mg/dL (0.55-1.3); POTASSIUM 4.1 mmol/L (3.5-5.1); TOT PROT 6.8 g/dl (6.4-8.2)
[2019-04-24 17:50] LABS: N-TERMINAL BNP 2500.5 pg/ml (5-450)
[2019-04-24] MEDS ORDERED: FUROSEMIDE 40 MG/4 ML INJECTABLE VIAL IVPUSH ONE (18:18)
--- NOTE | 2019-04-24 18:18 | PDOC ---
Documentation entered by Sally Song SCRIBE, acting as scribe for Tio Barney MD. Toi Barney MD: This documentation has been prepared by the Nohemi humphries Nirvannie, SCRIBE, under my direction and personally reviewed by me in its entirety. I confirm that the documentation accurately reflects all work, treatment, procedures, and medical decision making performed by me. Attending Attestation - Resident Resident Name: Chung Crews - ED Attending Attestation I have performed the following: I have examined & evaluated the patient, The case was reviewed & discussed with the resident, I agree w/resident's findings & plan, Exceptions are as noted - HPI HPI: 04/24/19 16:23 The patient is an 83 year old female, with a significant past medical history of DM, HTN, COPD, who presents to the emergency department with bilateral ankle edema with pain and generalized weakness. Patient notes his symptoms to onset shortly after being placed on outpatient steroids. She denies recent fevers, chills, headache or dizziness. She denies recent nausea, vomit, diarrhea or constipation. She denies recent dysuria, frequency, urgency or hematuria. She denies recent chest pain. Allergies: NKDA - Physicial Exam PE: 04/24/19 18:13 GENERAL: The patient is awake, alert, and fully oriented, Nontoxic - in no acute distress. HEAD: Normocephalic, atraumatic. EYES: extraocular movements intact, sclera anicteric, conjunctiva clear. ENT: Normal voice, Moist mucous membranes. NECK: Normal range of motion, supple LUNGS: scant rales at chrissie bases HEART: Regular rate and rhythm, normal S1 and S2 without murmur, rub or gallop. ABDOMEN: Soft, nontender, No guarding, no rebound. No CVA tenderness EXTREMITIES: Normal range of motion, +bl pitting edema, L>R, neg homans sign NEUROLOGICAL: No facial assymetry, Normal speech, PSYCH: Normal mood, normal affect. SKIN: Warm, Dry, normal turgor, - Medical Decision Making 04/24/19 16:09 likely chf vs fluid retention labs noted for elevated bnp +b lines on bedside US will admit for CHF ecxacerbation Heart Score/ECG Review - ECG Impressions Comment:: 04/24/19 18:55 Twelve-lead EKG was performed and reviewed by me. There is normal sinus rhythm with a normal rate. Rate of 83 Occasional PVCs T wave inversion in V5 V6
[2019-04-24] MEDS ORDERED: FUROSEMIDE 40 MG/4 ML INJECTABLE VIAL ONE (18:50)
[2019-04-25 00:18] VITALS: BMI 19.6
[2019-04-25] MEDS ORDERED: ALBUTEROL SO4 HFA INHALER IH PRN (07:49)
[2019-04-25] MEDS ORDERED: PT OWN MED DRAWER 7, Y5N ONE (09:24)
[2019-04-25] MEDS: LOSARTAN POTASSIUM 50 MG TABLET (FP) PO SCH (09:26)
[2019-04-25] MEDS: INSULIN (NOVOLOG MIX 70/30) 100 UNITS/ML MDV SQ SCH (09:27)
[2019-04-25] MEDS: FAMOTIDINE 20 MG TABLET PO SCH ×2 (09:27→21:15)
[2019-04-25] MEDS: acetaZOLAMIDE 250 MG TABLET PO SCH ×2 (09:27→21:15)
[2019-04-25] MEDS: amLODIPine BESYLATE 10 MG TABLET (FP) PO SCH (09:27)
[2019-04-25] MEDS: DORZOLAMIDE 2% HCL OPHTHALMIC SOLUTION 10 ML BOTTLE OU SCH ×2 (09:36→21:16)
[2019-04-25] MEDS: PILOCARPINE 2% OPHTHALMIC SOLUTION 15 ML BOTTLE OU SCH ×2 (09:38→21:16)
[2019-04-25] MEDS ORDERED: MAG HYDROX/AL HYDROX/SIMETH 30 ML UNIT-DOSE CUP PO PRN (12:08)
--- NOTE | 2019-04-25 12:33 | HP ---
DATE OF ADMISSION: 04/24/2019 DATE OF DICTATION: 04/25/2019 This is an 83-year-old female known to have CHF, diabetes, osteoarthritis, came to the emergency room yesterday with complaints of short of breath and leg edema. In the ER it was thought that patient may be in CHF so got admitted. This morning patient is feeling better, short of breath improved. PHYSICAL EXAMINATION: Vital Signs: BP 130/80, pulse 72, respirations 20, temperature 98. HEENT: Unremarkable. Neck: Supple. Lungs: Clear. Few basilar rales present. Heart: S1, S2 normal. No S3, S4. Abdomen: Soft. Legs: No edema. Neurologic: Examination grossly normal. LABORATORY: WBC 14.8, hemoglobin 14, hematocrit 43, neutrophils 87. Chemistry: Sodium 137, potassium 4.1, chloride 102, CO2 of 28, BUN 13, creatinine 1.1. B peptide 2500. IMAGING: Chest x-ray grossly normal. No infiltrate, no CHF. IMPRESSION: 1. Congestive heart failure. 2. Diabetes. 3. Osteoarthritis. PLAN: Continue her present medication, IV Lasix. Cardiology consult with Dr. Aguilar. Will follow. ALICJA FARAH M.D. [id number]
[2019-04-25] MEDS: ACETAMINOPHEN WITH CODEINE 300MG/30MG TABLET PO SCH ×2 (13:34→21:15)
--- NOTE | 2019-04-25 14:33 | EKG ---
Test Reason : Blood Pressure : / mmHG Vent. Rate : 083 BPM Atrial Rate : 083 BPM P-R Int : 136 ms QRS Dur : 082 ms QT Int : 350 ms P-R-T Axes : 053 018 107 degrees QTc Int : 411 ms SINUS RHYTHM WITH OCCASIONAL PREMATURE VENTRICULAR COMPLEXES ABNORMAL ECG Confirmed by MD KENNETH, VENKATESH ([id number]) on 04/25/2019 2:32:43 PM Referred By: Confirmed By:VENKATESH COOPER MD
[2019-04-25] MEDS: LATANOPROST 0.005% OPHTH SOLN 2.5ML BOTTLE OU SCH (21:16)
[2019-04-26] MEDS: ALPRAZolam 0.25 MG TABLET PO PRN (00:40)
[2019-04-26] MEDS: ACETAMINOPHEN WITH CODEINE 300MG/30MG TABLET PO SCH ×3 (06:12→21:03)
[2019-04-26] MEDS: glipiZIDE-XL 5 MG TAB.ER.24 PO SCH (06:13)
[2019-04-26] MEDS: INSULIN (NOVOLOG MIX 70/30) 100 UNITS/ML MDV SQ SCH (09:43)
[2019-04-26] MEDS: amLODIPine BESYLATE 10 MG TABLET (FP) PO SCH (09:45)
[2019-04-26] MEDS: acetaZOLAMIDE 250 MG TABLET PO SCH ×2 (09:46→21:03)
[2019-04-26] MEDS: FAMOTIDINE 20 MG TABLET PO SCH ×2 (09:46→21:04)
[2019-04-26] MEDS: FUROSEMIDE 40 MG/4 ML INJECTABLE VIAL IVPUSH SCH (09:46)
[2019-04-26] MEDS: LOSARTAN POTASSIUM 50 MG TABLET (FP) PO SCH (09:46)
[2019-04-26] MEDS: DORZOLAMIDE 2% HCL OPHTHALMIC SOLUTION 10 ML BOTTLE OU SCH ×2 (09:51→21:02)
[2019-04-26] MEDS: PILOCARPINE 2% OPHTHALMIC SOLUTION 15 ML BOTTLE OU SCH ×2 (09:52→21:02)
--- NOTE | 2019-04-26 12:01 | PN ---
Progress Note, Physician Chief Complaint: Feels better - Current Medication List Current Medications: Active Medications Acetaminophen/Codeine Phosphate (Tylenol # 3 -) 1 tab PO TID [facility] Last Admin: 04/26/19 06:12 Dose: 1 tab Acetazolamide (Diamox -) 250 mg PO BID [facility] Last Admin: 04/26/19 09:46 Dose: 250 mg Al Hydroxide/Mg Hydroxide (Mylanta Oral Suspension -) 30 ml PO Q6H PRN PRN Reason: DYSPEPSIA Last Admin: 04/25/19 13:36 Dose: 30 ml Albuterol Sulfate (Ventolin Hfa Inhaler -) 2 puff IH BID PRN PRN Reason: SHORTNESS OF BREATH Alprazolam (Xanax -) 0.5 mg PO TID PRN PRN Reason: ANXIETY Last Admin: 04/26/19 00:40 Dose: 0.5 mg Amlodipine Besylate (Norvasc -) 10 mg PO DAILY [facility] Last Admin: 04/26/19 09:45 Dose: 10 mg Collagenase (Santyl -) 1 applic TP DAILY [facility]; Protocol Dorzolamide HCl (Trusopt 2%) 1 drop OU BID [facility] Last Admin: 04/26/19 09:51 Dose: 1 drop Famotidine (Pepcid -) 20 mg PO BID [facility] Last Admin: 04/26/19 09:46 Dose: 20 mg Furosemide (Lasix Injection -) 40 mg IVPUSH DAILY [facility] Last Admin: 04/26/19 09:46 Dose: 40 mg Glipizide (Glucotrol Xl -) 5 mg PO DAILY@0700 [facility] Last Admin: 04/26/19 06:13 Dose: 5 mg Insulin Aspart (Novolog Mix 70/30 Vial) 8 units SQ DAILY [facility] Last Admin: 04/26/19 09:43 Dose: 8 units Latanoprost (Xalatan 0.005% Eye Drops -) 1 drop OU HS [facility] Last Admin: 04/25/19 21:16 Dose: 1 drop Levofloxacin (Levaquin -) 500 mg PO DAILY@0600 [facility] Last Admin: 04/26/19 08:55 Dose: 500 mg Losartan Potassium (Cozaar -) 100 mg PO DAILY [facility] Last Admin: 04/26/19 09:46 Dose: 100 mg Pilocarpine HCl (Pilostat 2% -) 1 drop OU BID [facility] Last Admin: 04/26/19 09:52 Dose: 1 drop - Objective Vital Signs: Vital Signs Temperature 98.2 F 04/26/19 04:58 Pulse Rate 77 04/26/19 04:58 Respiratory Rate 18 04/26/19 04:58 Blood Pressure 128/60 04/26/19 04:58 O2 Sat by Pulse Oximetry (%) 98 04/25/19 09:00 Constitutional: Yes: No Distress Eyes: Yes: WNL HENT: Yes: WNL Neck: Yes: WNL Cardiovascular: Yes: WNL Respiratory: Yes: WNL Gastrointestinal: Yes: Normal Bowel Sounds ...Rectal Exam: Yes: Deferred Genitourinary: Yes: WNL Edema: No Neurological: Yes: Alert Psychiatric: Yes: Alert Labs: CBC, BMP 04/24/19 16:30 04/24/19 16:30 INR, PTT INR 0.82 (0.83-1.09) L 04/24/19 16:30 Assessment/Plan BGM monitering
[2019-04-26] MEDS: LATANOPROST 0.005% OPHTH SOLN 2.5ML BOTTLE OU SCH (21:02)
[2019-04-27] MEDS: ALPRAZolam 0.25 MG TABLET PO PRN (02:30)
[2019-04-27] MEDS: glipiZIDE-XL 5 MG TAB.ER.24 PO SCH (06:09)
[2019-04-27] MEDS: ACETAMINOPHEN WITH CODEINE 300MG/30MG TABLET PO SCH (06:09)
[2019-04-27] MEDS ORDERED: PATIENT'S OWN MEDICATION (NON-FORMULARY) (Alprazolam [Xanax] 0.5 MG) PO PRN (09:39)
--- NOTE | 2019-04-27 09:41 | DS ---
Physical Examination Vital Signs: Vital Signs Temperature 98.7 F 04/27/19 05:00 Pulse Rate 105 H 04/27/19 05:00 Respiratory Rate 16 04/27/19 05:00 Blood Pressure 140/58 L 04/27/19 05:00 O2 Sat by Pulse Oximetry (%) 97 04/26/19 09:00 Findings/Remarks: Admitted with CHF ,received IV lasix ,felt better CHF resolved Constitutional: Yes: No Distress Eyes: Yes: WNL HENT: Yes: WNL Neck: Yes: WNL Cardiovascular: Yes: WNL Respiratory: Yes: WNL Gastrointestinal: Yes: WNL ...Rectal Exam: Yes: Deferred Renal/: Yes: WNL Edema: No Labs: CBC, BMP 04/24/19 16:30 04/24/19 16:30 Discharge Summary Problems reviewed: Yes Reason For Visit: GENERALIZED SICKNESS Current Active Problems CHF (congestive heart failure) (Acute) Condition: Stable - Instructions Referrals: Margareth Manzo MD [Primary Care Provider] - - Home Medications Comprehensive Discharge Medication List: Ambulatory Orders Amlodipine Besylate [Norvasc -] 10 mg PO DAILY 03/22/14 Losartan Potassium 100 mg PO DAILY 03/23/14 Acetaminophen W/ Codeine #3 [Tylenol # 3 -] 1 tab PO TID 04/20/16 Brimonidine Tartrate/Timolol [Combigan 0.2%-0.5% Eye Drops] 1 drop OU DAILY 06/01 Dorzolamide HCl [Trusopt 2%] 1 drop OU BID 04/20/16 Insulin (Novolog 70/30) [Novolog Mix 70/30 Flexpen -] 8 units SQ DAILY 04/20/16 Latanoprost 0.005% Eye Drops [Xalatan 0.005% Eye Drops -] 1 drop OU HS 04/20/16 Alprazolam [Xanax] 0.5 mg PO TID PRN 07/26/16 Albuterol Sulfate Inhaler - [Ventolin Hfa Inhaler -] 2 puff IH BID PRN 01/26/17 Glipizide 5 mg PO DAILY 01/26/17 Levofloxacin [Levaquin] 500 mg PO DAILY #7 tablet 10/03/18 Pilocarpine 2% [Pilostat 2% -] 1 drop OP BID 10/03/18 acetaZOLAMIDE [Diamox -] 250 mg PO BID 10/03/18 Famotidine [Pepcid -] 20 mg PO BID #60 tablet 10/08/18
[2019-04-27] MEDS: FUROSEMIDE 40 MG/4 ML INJECTABLE VIAL IVPUSH SCH (09:56)
[2019-04-27] MEDS: INSULIN (NOVOLOG MIX 70/30) 100 UNITS/ML MDV SQ SCH (09:56)
[2019-04-27] MEDS: LOSARTAN POTASSIUM 50 MG TABLET (FP) PO SCH (09:56)
[2019-04-27] MEDS: acetaZOLAMIDE 250 MG TABLET PO SCH (09:56)
[2019-04-27] MEDS: amLODIPine BESYLATE 10 MG TABLET (FP) PO SCH (09:57)
[2019-04-27] MEDS: FAMOTIDINE 20 MG TABLET PO SCH (09:58)
[2019-04-27] MEDS ORDERED: PATIENT'S OWN MEDICATION (NON-FORMULARY) (Brimonidine Tartrate/Timolol [Combigan 0.2%-0.5% OU SCH (10:00)
[2019-04-27] MEDS ORDERED: PATIENT'S OWN MEDICATION (NON-FORMULARY) (Amlodipine Besylate [Norvasc -] 10 MG) PO SCH (10:00)
[2019-04-27] MEDS ORDERED: ACETAZOLAMIDE PO SCH (10:00)
[2019-04-27] MEDS ORDERED: PATIENT'S OWN MEDICATION (NON-FORMULARY) (Famotidine [Pepcid -] 20 MG) PO SCH (10:00)
[2019-04-27] MEDS ORDERED: predniSONE 10 MG TABLET (UD) PO SCH (10:00)
[2019-04-27] MEDS ORDERED: LEVOFLOXACIN 500 MG PO SCH (10:00)
[2019-04-27] MEDS ORDERED: PATIENT'S OWN MEDICATION (NON-FORMULARY) (Insulin (Novolog 70/30) [Novolog Mix 70/30 Flexp SQ SCH (10:00)
[2019-04-27] MEDS ORDERED: DORZOLAMIDE HCL OU SCH (10:00)
[2019-04-27] MEDS ORDERED: PILOCARPINE 2% OP SCH (10:00)
[2019-04-27] MEDS ORDERED: COLLAGENASE CLOSTRIDIUM HIST. 30 GRAMS TUBE TP SCH (10:00)
[2019-04-27] MEDS ORDERED: PATIENT'S OWN MEDICATION (NON-FORMULARY) (Losartan Potassium [Losartan Potassium] 100 MG) PO SCH (10:00)
[2019-04-27] MEDS ORDERED: GLIPIZIDE 5 MG PO SCH (10:00)
[2019-04-27] MEDS: DORZOLAMIDE 2% HCL OPHTHALMIC SOLUTION 10 ML BOTTLE OU SCH (10:10)
[2019-04-27] MEDS: PILOCARPINE 2% OPHTHALMIC SOLUTION 15 ML BOTTLE OU SCH (10:10)
[2019-04-27 12:03] VITALS: BP 138/58; PULSE 95; TEMP 97
[2019-04-27] MEDS ORDERED: ACETAMINOPHEN WITH CODEINE 300MG/30MG TABLET PO SCH (14:00)
[2019-04-27] MEDS ORDERED: PATIENT'S OWN MEDICATION (NON-FORMULARY) (Latanoprost 0.005% Eye Drops [Xalatan 0.005% Eye OU SCH (22:00)
== END 2019-04-27 12:42 | disposition home or self-care (01) | DRG 291 ==
LOC: JER 14:18 → JERBED 18:51 → J6S 23:13 → OBSVTOIN 04-25 12:06
PROVIDERS: ADMIT Internal Medicine; ATTEND Internal Medicine
DX: I11.0 Hypertensive heart disease with heart failure (principal); I50.31 Acute diastolic (congestive) heart failure; J44.9 Chronic obstructive pulmonary disease, unspecified; E11.9 Type 2 diabetes mellitus without complications
CPT/HCPCS: 36415; 71045-TC-FY; 80053; 82550; 82962; 83880; 84484; 85025; 85610; 93005; 93010; 97116-GP; 97161-GP; 99284-25; G0378

== ENCOUNTER 2019-05-05 16:28 | Inpatient (IN) | payer OTHER ==
[2019-05-05] MEDS ORDERED: methylPREDNISolone NA SUCC 125 MG/2 ML VIAL IVPUSH ONE (16:39)
[2019-05-05] MEDS ORDERED: ALBUTEROL SO4 2.5/IPRATROPIUM 0.5 INH SOL 3 ML VIAL.NEB. NEB ONE ×2 (16:40→16:57)
--- NOTE | 2019-05-05 16:44 | PDOC ---
History of Present Illness - General Stated Complaint: DIFFICULTY BREATHING Time Seen by Provider: 05/05/19 16:38 History Source: Patient Exam Limitations: No Limitations - History of Present Illness Initial Comments: 05/05/19 16:42 83yF w PMHx IDDM, HTN, COPD, CHF presenting w progressive worsening SOB (worse lying down) and nilda leg swelling (L>R) since last night. Took 1 inhaler today without relief. On arrival, pt O2sat low 60, started on nonrebreather, then switched to CPAP when desat to low 80s en route. Denies hx DVT/PE, not on anticoagulation. On room air at baseline. DC from hospital 8d ago for CHF exacerbation. Denies fever, nausea/vomiting, cough, chest pain. Past History - Past Medical History Allergies/Adverse Reactions: Allergies Allergy/AdvReac Type Severity Reaction Status Date / Time No Known Allergies Allergy Verified 04/24/19 14:47 Home Medications: Ambulatory Orders Amlodipine Besylate [Norvasc -] 10 mg PO DAILY 03/22/14 Losartan Potassium 100 mg PO DAILY 03/23/14 Acetaminophen W/ Codeine #3 [Tylenol # 3 -] 1 tab PO TID 04/20/16 Brimonidine Tartrate/Timolol [Combigan 0.2%-0.5% Eye Drops] 1 drop OU DAILY 06/01 Dorzolamide HCl [Trusopt 2%] 1 drop OU BID 04/20/16 Insulin (Novolog 70/30) [Novolog Mix 70/30 Flexpen -] 8 units SQ DAILY 04/20/16 Latanoprost 0.005% Eye Drops [Xalatan 0.005% Eye Drops -] 1 drop OU HS 04/20/16 Alprazolam [Xanax] 0.5 mg PO TID PRN 07/26/16 Albuterol Sulfate Inhaler - [Ventolin Hfa Inhaler -] 2 puff IH BID PRN 01/26/17 Glipizide 5 mg PO DAILY 01/26/17 Levofloxacin [Levaquin] 500 mg PO DAILY #7 tablet 10/03/18 Pilocarpine 2% [Pilostat 2% -] 1 drop OP BID 10/03/18 acetaZOLAMIDE [Diamox -] 250 mg PO BID 10/03/18 Famotidine [Pepcid -] 20 mg PO BID #60 tablet 10/08/18 Anemia: No Asthma: No Cancer: No Cardiac Disorders: No CVA: No COPD: Yes CHF: Yes Dementia: No Diabetes: Yes GI Disorders: Yes (GERD) Disorders: No HTN: Yes Hypercholesterolemia: Yes Liver Disease: No Seizures: No Thyroid Disease: No - Surgical History Appendectomy: No Cardiac Surgery: No Cholecystectomy: No Lung Surgery: No Neurologic Surgery: Yes (SURGERY FOR HERNIATED DISC.) Orthopedic Surgery: Yes (BACK SURGERY) - Immunization History Immunization Up to Date: No - Psycho Social/Smoking Cessation Hx Smoking History: Current every day smoker Have you smoked in the past 12 months: Yes Number of Cigarettes Smoked Daily: 2 'Breaking Loose' booklet given: 12/08/18 Hx Alcohol Use: No Drug/Substance Use Hx: No Substance Use Type: None Hx Substance Use Treatment: No Review of Systems - Review of Systems Constitutional: No: Chills, Fever HEENTM: No: Eye Pain, Nose Pain, Throat Pain Respiratory: Yes: Shortness of Breath. No: Cough Cardiac (ROS): No: Chest Pain, Palpitations ABD/GI: No: Abdominal Distended, Constipated, Diarrhea, Nausea, Vomiting : No: Burning, Dysuria Musculoskeletal: No: Back Pain, Joint Pain Integumentary: No: Bruising, Flushing Neurological: No: Headache, Seizure Psychiatric: No: Anxiety, Depression Endocrine: No: Intolerance to Cold, Intolerance to Heat Hematologic/Lymphatic: No: Anemia, Blood Clots *Physical Exam - Physical Exam General Appearance: Yes: Nourished, Appropriately Dressed, Moderate Distress HEENT: positive: EOMI, CIERRA, Normal Voice. negative: Scleral Icterus (R), Scleral Icterus (L) Respiratory/Chest: positive: Accessory Muscle Use, Crackles (nilda crackles), Wheezing (mild expiratory wheezing), Other (nilda coarse sounds). negative: Chest Tender, Rhonchi, Stridor Cardiovascular: positive: Regular Rhythm, Regular Rate, S1, S2. negative: Murmur Gastrointestinal/Abdominal: positive: Normal Bowel Sounds, Soft, Distended ( moderate). negative: Tender, Organomegaly Musculoskeletal: negative: CVA Tenderness (R), CVA Tenderness (L) Extremity: positive: Swelling (2+ pitting to knee L leg, 1+ edema to knee R leg) Integumentary: positive: Normal Color. negative: Dry, Warm Neurologic: positive: animal keeper head II-XII NML intact, Fully Oriented, Alert, Normal Response, Responsive. negative: Sensory Deficit, Confused, Disoriented ED Treatment Course - LABORATORY CBC & Chemistry Diagram: 05/05/19 17:20 - RADIOLOGY Radiology Studies Ordered: Category Date Time Status DUPLEX VASCUL US-1 LEG [US] Stat Ultrasound 05/05/19 16:40 Ordered Medical Decision Making - Medical Decision Making 05/05/19 16:48 EKG CXR - nilda pulm congestion, stable nodule MONICA duplex L leg WBC 12 w left shift --- 83yF w PMHx IDDM, HTN, COPD, CHF presenting w progressive worsening SOB and nilda leg swelling since last night. CHF exacerbation (pulm congestion, leg swelling) vs COPD exacerbation (wheezing ) vs PE/DVT (L leg swelling). Low concern for PNA (no consolidation) Given duonebx1, solumedrol, 40 lasix. Started BiPAP 12/[address] Manzo for CHF exacerbation acute respiratory pressure on supplemental O2 Signed out to night team - pending labs, US, EKG - if d-dimer elevated, order CTA r/o PE Discharge - Discharge Information Problems reviewed: Yes Clinical Impression/Diagnosis: Acute exacerbation of CHF (congestive heart failure) Qualifiers: Heart failure type: unspecified Qualified Code(s): I50.9 - Heart failure, unspecified Acute respiratory failure Qualifiers: Respiratory failure complication: hypoxia Qualified Code(s): J96.01 - Acute respiratory failure with hypoxia Condition: Improved - Follow up/Referral Referrals: Margareth Manzo MD [Primary Care Provider] - - Patient Discharge Instructions - Post Discharge Activity
[2019-05-05] MEDS ORDERED: methylPREDNISolone NA SUCC 125 MG/2 ML VIAL ONE (16:57)
--- NOTE | 2019-05-05 17:21 | PDOC ---
Documentation entered by Sally Song SCRIBE, acting as scribe for Mariana Escobar MD. Mariana Escobar MD: This documentation has been prepared by the Nohemi humphries Nirvannie, SCRIBE, under my direction and personally reviewed by me in its entirety. I confirm that the documentation accurately reflects all work, treatment, procedures, and medical decision making performed by me. Attending Attestation - Resident Resident Name: Rasheed Durand - ED Attending Attestation I have performed the following: I have examined & evaluated the patient, The case was reviewed & discussed with the resident, I agree w/resident's findings & plan, Exceptions are as noted - HPI HPI: 05/05/19 17:45 The patient is a 83 year old female, with a significant past medical history of IDDM, HTN, CHF (recent admission 04/24-04/27 for CHF exacerbation), and COPD, who presents to the emergency department with 1.5 days of progressively worsening shortness of breath, orthopnea, and left lower extremity edema. Patient used her rescue inhaler once today, without relief prompting her arrival to the ED. Allergies: NKDA Primary Care Physician: Dr. Manzo - Physicial Exam PE: GENERAL: Awake, alert, and fully oriented. Tachypneic. On BiPAP, able to speak 3 -4 word sentences. HEAD: No signs of trauma EYES: PERRLA, EOMI, sclera anicteric, conjunctiva clear ENT: Auricles normal inspection, hearing grossly normal, nares patent, oropharynx clear without exudates. Moist mucosa NECK: Normal ROM, supple, no lymphadenopathy, JVD, or masses LUNGS: Good air entry B/L, scattered wheezes HEART: Regular rate and rhythm, normal S1 and S2, no murmurs, rubs or gallops ABDOMEN: Soft, nontender, normoactive bowel sounds. No guarding, no rebound. No masses EXTREMITIES: Normal range of motion, 2+ pitting edema to BLE, worse on L. No clubbing or cyanosis. No cords, erythema, or tenderness NEUROLOGICAL: Cranial nerves II through XII grossly intact. Normal speech. Motor and sensation intact SKIN: Warm, dry, normal turgor, no rashes or lesions noted. - Medical Decision Making Pt presents with SOB, likely secondary to CHF exacerbation. Will obtain LLE DVT study in light of swelling, however, it appears it is chronic.
[2019-05-05 18:18] LABS: BASO % 0.1 % (0-2.0); EOS % 0.1 % (0-4.5); HEMATOCRIT 45.1 % (32.4-45.2); HEMOGLOBIN 14.6 GM/dL (10.7-15.3); MCH 30.7 pg (25.7-33.7); MCHC 32.4 g/dl (32.0-36.0); MEAN CELL VOLUME 94.9 fl (80-96); MONO % 4.2 % (3.8-10.2); NEUT % 85.6 % (42.8-82.8); RBC 4.76 M/mm3 (3.60-5.2); RDW 14.2 % (11.6-15.6); WHITE BLOOD COUNT 12.2 K/mm3 (4.0-10.0)
[2019-05-05] MEDS ORDERED: FUROSEMIDE 40 MG/4 ML INJECTABLE VIAL IVPUSH ONE (18:39)
[2019-05-05 19:07] LABS: VENOUS PH 7.28 (7.31-7.41)
[2019-05-05 19:08] LABS: VENOUS PO2 < 49 mmHg (28-48)
[2019-05-05 19:10] LABS: VENOUS PC02 73.2 mmHg (38-52)
[2019-05-05 19:39] LABS: ALBUMIN 3.3 g/dl (3.4-5.0); ALK PHOS 120 U/L (45-117); ANION GAP 6 MMOL/L (8-16); BILIRUBIN,TOTAL 0.4 mg/dL (0.2-1); CALCIUM 9.2 mg/dL (8.5-10.1); CHLORIDE 100 mmol/L (98-107); CO2 31 mmol/L (21-32); CREATININE 1.3 mg/dL (0.55-1.3); GLUCOSE,RANDOM 215 mg/dL (74-106); POTASSIUM 4.5 mmol/L (3.5-5.1); SGOT/AST 29 U/L (15-37); SGPT/ALT 21 U/L (13-61); SODIUM 137 mmol/L (136-145); TOT PROT 6.9 g/dl (6.4-8.2)
[2019-05-05 21:17] LABS: MEAN PLT VOLUME 9.6 fl (7.5-11.1); PLATELET COUNT 236 K/MM3 (134-434)
[2019-05-05 21:18] LABS: MACROCYTOSIS 1+; PLATELET ESTIMATE ADEQUATE
[2019-05-05 21:33] LABS: ARTERIAL BLD GAS O2 SATURATION 97.6 % (95-98); ARTERIAL BLOOD GAS BASE EXCESS 3.5 meq/l (-2-2); ARTERIAL BLOOD GAS PCO2 51.5 mmHg (35-45); ARTERIAL BLOOD GAS PO2 111 mmHg (80-100); ARTERIAL BLOOD GAS pH 7.37 (7.35-7.45); CARBOXYHEMOGLOBIN 0.9 % (0-2)
[2019-05-05] MEDS ORDERED: FUROSEMIDE 40 MG/4 ML INJECTABLE VIAL ONE (22:43)
[2019-05-06] MEDS ORDERED: ALPRAZolam 0.25 MG TABLET PO ONE (01:45)
[2019-05-06] MEDS ORDERED: ALPRAZolam 0.25 MG TABLET ONE (01:47)
--- NOTE | 2019-05-06 10:22 | HP ---
DATE OF ADMISSION: 05/05/2019 This is an 83-year-old female known to have CHF, COPD, had multiple admissions in the past, last admission was about 2 weeks ago, came to the emergency room with complaints of shortness of breath, her PO2 was low, so she got admitted. She was on rebreather. This morning, she is breathing a little better. She is on multiple medications at home. She is compliant with these medications. I think she is still smoking. PHYSICAL EXAMINATION: Vital Signs: BP 105/60, temperature 98, pulse 104, respiration 20, O2 saturation with BiPAP is 100. HEENT: Unremarkable. Neck: Supple. No JVD. Lungs: A few basilar rales. Heart: S1, S2 normal. No S3, S4. Abdomen: Soft. Extremities: Legs, minimal edema present. Neurologic: Examination grossly normal. LABORATORY REPORTS: WBC 12.2, hemoglobin 14.6, hematocrit 45. Chemistry: Sodium 127, potassium 4.5. BUN 23, creatinine 1.3. B Peptide 1825. D-dimer 4426. CHEST X-RAY: No acute changes. IMPRESSION: 1. Acute exacerbation of chronic obstructive pulmonary disease. 2. Congestive heart failure. 3. Hypertension. PLAN: Admit to telemetry. Cardiology consult with Dr. Aguilar. Continue her home medications. ALICJA FARAH M.D. [id number]
--- NOTE | 2019-05-06 11:16 | EKG ---
Test Reason : Blood Pressure : / mmHG Vent. Rate : 089 BPM Atrial Rate : 089 BPM P-R Int : 128 ms QRS Dur : 066 ms QT Int : 360 ms P-R-T Axes : 060 028 095 degrees QTc Int : 438 ms SINUS RHYTHM WITH OCCASIONAL PREMATURE VENTRICULAR COMPLEXES POSSIBLE ANTERIOR INFARCT , AGE UNDETERMINED ABNORMAL ECG Confirmed by MD FRANSISCO, TALIA ([id number]) on 05/06/2019 11:16:42 AM Referred By: Confirmed By:TALIA MOODY MD
[2019-05-06] MEDS: INSULIN SLIDING SCALE (NOVOLOG) 1 VIAL SQ SCH (22:05)
--- NOTE | 2019-05-07 00:11 | CONS ---
DATE OF CONSULTATION: DATE OF DICTATION: 05/06/2019 REQUESTING PHYSICIAN: Margareth Manzo MD. CARDIOLOGY CONSULTATION CHIEF COMPLAINT: Progressive shortness of breath for the past 1 week. Left lower extremity edema. HISTORY OF PRESENT ILLNESS: The patient is an 83-year-old -Italian female with a history of insulin dependent diabetes mellitus, hypertension, COPD, congestive heart failure, developed increasing dyspnea with minimal exertion, several pillow orthopnea accompanied by lower extremity edema, cough that was mostly nonproductive, denies having paroxysmal nocturnal dyspnea. Symptoms became progressively worse. She was brought to the emergency room. She was found to be severely hypoxic requiring BiPAP. No history of chest pain or discomfort either at rest or with discomfort. History of generalized weakness and exertional claudication especially involving the left lower extremity. No history of palpitations, lightheadedness, dizziness, presyncope or syncope reported. No history of chills or fever. No history of heart murmur or rheumatic fever. PAST HISTORY: As mentioned in the history of present illness. History of peripheral arterial disease. History of an ischemic ulcer involving the right foot. SURGICAL HISTORY: Status post spinal surgery. Status post surgery involving the right lower extremity for arterial occlusion. Status post tonsillectomy. Status post bilateral cataract extraction. SOCIAL HISTORY: She is , has a son and a daughter who apparently are healthy. She started smoking in her teenage years, used to smoke half a pack of cigarettes a day and continues to smoke at least 3 to 4 cigarettes. Used to socially drink but no alcohol at the present time. Denies excessive use of caffeine. FAMILY HISTORY: Father at age 65 related to chronic bronchitis, was a heavy smoker. Mother at age 85 related to heart disease and was known to be hypertensive. one brother who of complications of prostate carcinoma, he was also hypertensive. ALLERGIES: None reported. MEDICATION: As noted from the emergency room records. 1. Amlodipine 10 mg p.o. daily. 2. Losartan 100 mg p.o. daily. 3. Acetaminophen with codeine No. 3 one p.o. t.i.d. p.r.n. 4. Combigan 0.2%-0.5% one drop both eyes daily. 5. Dorzolamide (Trusopt) 1 drop both eyes b.i.d. 6. NovoLog insulin 70/30. 7. Latanoprost 0.005% one drop both eyes at bedtime. 8. Xanax 0.5 mg p.o. t.i.d. 9. Albuterol inhaler 2 inhalations b.i.d. p.r.n. 10. Glipizide 5 mg p.o. daily. 11. Levaquin 500 mg daily number 7 tablets on October 03, 2018. 12. Diamox 250 mg p.o. b.i.d. on October 03, 2018. 13. Pepcid 20 mg p.o. b.i.d. REVIEW OF SYSTEMS: Constitutional: No history of chills, fever, or night sweats. A history of unintentional weight loss of approximately 25 pounds over the last 4 to 6 months. HEENT: No history of headaches, diplopia, blurred vision. History of glaucoma. No history of epistaxis, hoarseness, tinnitus, or deafness. Respiratory: See history of present illness. Cardiovascular: No history of chest pain or discomfort. See history of present illness. Gastrointestinal: No history of nausea, vomiting, melena, or hematemesis. Apparently has history of gastroesophageal reflux disease. No history of abdominal pain or discomfort. No history of change in bowel habits. Denies having early satiety. Genitourinary: No history of dysuria, frequency, hematuria, or urgency. Musculoskeletal: No history of myalgias or arthralgias are noted. Endocrine: See history of present illness. Hematological/Lymphatics: No history of bleeding, ecchymosis, or anemia. PHYSICAL EXAMINATION: General: An 83-year-old underweight female was moderately dyspneic, no pallor, ? mild circumoral cyanosis, unable to appreciate jaundice. Neck: Supple. No jugulovenous distention, mildly positive hepatojugular reflex , carotids were 2+, upstrokes were normal, no bruits were appreciated, and no thyromegaly was palpable. Heart: PMI was in the 5th intercostal space, slight apical and left parasternal heave. S1 was normal, S2 was split, and slightly accentuated. ? grade 1/6 decrescendo systolic murmur was heard along the left sternal border. No diastolic murmur or gallops were heard. Lungs: Decreased bilaterally, there were scattered anterior left crepitations and expiratory wheezing. Chest: Increased AP diameter grossly. Expansion was slightly restricted. Abdomen: Soft, nontender, no hepatosplenomegaly or palpable masses were felt. There is a small reducible umbilical hernia. Bowel wounds were present. No bruits were heard. Extremities: No calf tenderness. There was 2+ left lower extremity edema. Trace right pretibial edema. Left leg was cool, right leg was warm, femoral pulses were 2+, left dorsalis pedis and posterior tibial pulses were not palpable, right dorsalis pedis pulse was palpable, posterior tibial pulses were absent. There was a healed right lower extremity surgical scar. LABORATORY DATA: CBC on May 05, 2019: WBC count 12,200, hemoglobin 14.6 g /dL, cell indices were normal, platelet count was 236,000, differential neutrophils 85.6% elevated, bands were 3%, lymphocytes were 10%, monocytes were 4.2%, eosinophils were 0.1%. Arterial blood gases on May 05, 2019: pH 7.37, pCO2 of 51.5, pO2 of 111, bicarbonate 29.2, oxygen saturation 97.6, base excess was 3.5. Chemistry on May 05, 2019: Sodium 137, potassium 4.5, chloride 100, CO2 of 31, BUN 26.0, creatinine 1.3 mg/dL. Random glucose was 215 mg/dL, calcium 9.2, bilirubin 0.4, AST 29, ALT 21, alkaline phosphatase 120 (slightly elevated) units per liter. Troponins were less than 0.02. BNP May 05, 2019: 1825.5 pg/mL. X-ray chest, impression: No acute pathology. No sign of failure or infiltrate. No significant change since April 24, 2019. Stable nodular density left upper lobe. ECG May 05, 2019: Sinus rhythm with intraatrial conduction abnormality, occasional supraventricular premature beats at times aberrantly conducted, poor R wave progression with V1 to V3, possibility of an anteroseptal wall myocardial infarction of indeterminate age cannot be excluded, diffuse ST and T wave abnormalities. IMPRESSION: 1. Chronic obstructive pulmonary disease/chronic bronchitis with acute exacerbation. 2. Congestive heart failure, cor pulmonale needs exclusion. 3. Hypertension, hypertensive cardiovascular disease. 4. Insulin dependent diabetes mellitus. 5. History of peripheral arterial disease status post vascular surgery involving the right lower extremity. 6. Left lower extremity claudication and cold extremity is consistent with peripheral arterial disease. 7. Tobacco abuse. 8. Poor compliance. 9. Glaucoma. 10. History of unintentional weight loss, etiology to be determined. RECOMMENDATION: 1. Obtain all medications for reconciliation. 2. Continue all outpatient cardiac medications. 3. Lasix 40 mg p.o. daily. 4. Peripheral arterial Dopplers. 5. CT scan of the chest with contrast to exclude pulmonary thromboembolism. 6. Cessation of smoking. 7. Lipid profile. 8. Consider statins in view of longstanding history of peripheral arterial disease in the presence of diabetes mellitus. 9. Aspirin 81 mg p.o. daily provided there are no contraindications. 10. Daily weight. 11. Further suggestions as necessary. 12. Prognosis guarded. Thank you for your referral. ALVARO ELDER M.D. [id number] MTDD
[2019-05-07] MEDS: INSULIN SLIDING SCALE (NOVOLOG) 1 VIAL SQ SCH ×4 (06:02→21:08)
[2019-05-07] MEDS: INSULIN (NOVOLOG MIX 70/30) 100 UNITS/ML MDV SQ SCH (07:42)
--- NOTE | 2019-05-07 09:50 | PN ---
Progress Note, Physician Chief Complaint: Feels the same - Current Medication List Current Medications: Active Medications Insulin Aspart (Novolog Vial Sliding Scale -) 1 vial SQ [facility]; Protocol Last Admin: 05/07/19 06:02 Dose: Not Given Insulin Aspart (Novolog Mix 70/30 Vial) 8 units SQ DAILY@0700 [facility] Last Admin: 05/07/19 07:42 Dose: Not Given - Objective Vital Signs: Vital Signs Temperature 97.4 F L 05/07/19 05:22 Pulse Rate 87 05/07/19 05:22 Respiratory Rate 05/07/19 05:22 Blood Pressure 114/59 L 05/07/19 05:22 O2 Sat by Pulse Oximetry (%) 96 05/06/19 21:01 Constitutional: Yes: Anxious Eyes: Yes: WNL HENT: Yes: WNL Neck: Yes: WNL Cardiovascular: Yes: Tachycardia Respiratory: Yes: WNL, Poor Air Entry Gastrointestinal: Yes: WNL ...Rectal Exam: Yes: Deferred Genitourinary: Yes: WNL Edema: RUE: 1+, LLE: 1+ Neurological: Yes: Alert ...Motor Strength: WNL Labs: CBC, BMP 05/05/19 17:20 05/05/19 18:15 Assessment/Plan Dr Maya cadiology consult appreciated Plan continue same trt
[2019-05-07] MEDS ORDERED: ALBUTEROL SO4 HFA INHALER IH PRN (09:52)
[2019-05-07] MEDS: amLODIPine BESYLATE 10 MG TABLET (FP) PO SCH (09:55)
[2019-05-07] MEDS: LOSARTAN POTASSIUM 50 MG TABLET (FP) PO SCH (09:56)
[2019-05-07] MEDS: ACETAMINOPHEN WITH CODEINE 300MG/30MG TABLET PO PRN ×2 (12:02→21:07)
--- NOTE | 2019-05-07 19:44 | PN ---
Progress Note (short form) - Note Progress Note: 83-year-old female with long-standing history of COPD was admitted with progressive dyspnea severe orthopnea and dyspneaon minimal exertion.. Long- standing history of insulin-dependent diabetes mellitus, congestive heart failure, peripheral arterial disease, tobacco abuse. Since yesterday there is significant decrease in dyspnea,, no paroxysmal nocturnal dyspnea or orthopnea reported. No history of chest pain or discomfort. No palpitations. Active Medications Generic Name Dose Route Start Last Admin Trade Name Freq PRN Reason Stop Dose Admin Acetaminophen/Codeine Phosphate 1 tab 05/07/19 10:05 05/07/19 12:02 Tylenol # 3 - PO 1 tab Q8H PRN Administration PAIN LEVEL 6-10 Acetazolamide 250 mg 05/07/19 22:00 Diamox - PO BID ERASTO Albuterol Sulfate 2 puff 05/07/19 09:52 Ventolin Hfa Inhaler - IH BID PRN SHORTNESS OF BREATH Alprazolam 0.5 mg 05/07/19 09:50 Xanax - PO Q8H PRN ANXIETY Amlodipine Besylate 10 mg 05/07/19 10:00 05/07/19 09:55 Norvasc - PO 10 mg DAILY ERASTO Administration Dorzolamide HCl 1 drop 05/07/19 22:00 Trusopt 2% OU BID ERASTO Famotidine 20 mg 05/07/19 22:00 Pepcid - PO BID ERASTO Glipizide 5 mg 05/08/19 07:00 Glucotrol - PO ACBK ERASTO Insulin Aspart 1 vial 05/06/19 22:00 05/07/19 17:19 Novolog Vial Sliding Scale - SQ 2 units ACHS ERASTO Administration Protocol Insulin Aspart 8 units 05/07/19 07:00 05/07/19 07:42 Novolog Mix 70/30 Vial SQ Not Given DAILY@0700 [facility] Latanoprost 1 drop 05/07/19 22:00 Xalatan 0.005% Eye Drops - OU HS ERASTO Losartan Potassium 50 mg 05/07/19 10:00 05/07/19 09:56 Cozaar - PO 50 mg DAILY ERASTO Administration Pilocarpine HCl 1 drop 05/07/19 22:00 Pilostat 2% - OU BID ERASTO Timolol Maleate 1 drop 05/08/19 10:00 Timoptic 0.5% OU DAILY [facility] Last Vital Signs Temp Pulse Resp BP Pulse Ox 98.0 F 74 18 119/48 L 100 05/07/19 18:00 05/07/19 18:00 05/07/19 18:00 05/07/19 18:00 05/07/19 09:00 Neck:Supple, no jugular venous distention, slightly positive hepatojugular reflux, carotids 2+, unable to appreciate any bruits or thyromegaly. Heart: PMI in the fifth intercostal space, slight apical and left parasternal heave, heart sounds were distant, a grade 1/6 decrescendo systolic murmur heard along the left sternal border. No diastolic murmur or gallops were heard. Lungs: Bilateral scattered expiratory wheezing. No crepitations were heard, breath sounds at the bases were decreased. Abdomen; Soft, nontender, no hepatosplenomegaly or palpable masses were appreciated. Small reducible umbilical hernia Extremities: No calf tenderness, 1-2+ left lower extremity edema. left lower extremity was cool and dorsalis pedis pulses and posterior tibial pulses were absent. Right lower extremity dorsalis pedis pulse was palpable, posterior tibial could not be palpated. Bilateral femoral pulses were 2+. Laboratory Results - last 24 hr 05/06/19 05/06/19 05/07/19 21:34 23:51 05:52 POC Glucometer 404 266 104 05/07/19 05/07/19 12:00 17:13 POC Glucometer 179 152 CBC, BMP 05/05/19 17:20 05/05/19 18:15 Impression: 1. Acute exacerbation of COPD. 2. Acute congestive heart failure precipitated by #1. 3. Cor pulmonale needs exclusion. 4. Insulin-dependent diabetes mellitus. 5. Poor compliance. 6. Tobacco abuse. Recommendations: 1. As outlined in the consultation. 2. Follow-up ECG and troponin levels. 3. Continue current cardiac medications. Prognosis: guarded. Raul Aguilar MD; [facility]
[2019-05-07] MEDS ORDERED: PT OWN MED DRAWER 7, Y5N ONE (20:58)
[2019-05-07] MEDS: FAMOTIDINE 20 MG TABLET PO SCH (21:07)
[2019-05-07] MEDS: acetaZOLAMIDE 250 MG TABLET PO SCH (21:08)
[2019-05-07] MEDS: DORZOLAMIDE 2% HCL OPHTHALMIC SOLUTION 10 ML BOTTLE OU SCH (21:09)
[2019-05-07] MEDS: LATANOPROST 0.005% OPHTH SOLN 2.5ML BOTTLE OU SCH (21:09)
[2019-05-07] MEDS: PILOCARPINE 2% OPHTHALMIC SOLUTION 15 ML BOTTLE OU SCH (21:09)
[2019-05-08] MEDS: INSULIN (NOVOLOG MIX 70/30) 100 UNITS/ML MDV SQ SCH (06:39)
[2019-05-08] MEDS: INSULIN SLIDING SCALE (NOVOLOG) 1 VIAL SQ SCH ×4 (06:39→22:36)
[2019-05-08] MEDS: glipiZIDE 5 MG TABLET (FP) PO SCH (06:40)
[2019-05-08] MEDS: ACETAMINOPHEN WITH CODEINE 300MG/30MG TABLET PO PRN (06:40)
[2019-05-08] MEDS: LOSARTAN POTASSIUM 50 MG TABLET (FP) PO SCH (09:37)
[2019-05-08] MEDS: amLODIPine BESYLATE 10 MG TABLET (FP) PO SCH (09:37)
--- NOTE | 2019-05-08 09:57 | PN ---
Progress Note, Physician Chief Complaint: C/O sore throat Poor Po in take History of Present Illness: Case discussed with Dr Aguilar in detail - Current Medication List Current Medications: Active Medications Acetaminophen/Codeine Phosphate (Tylenol # 3 -) 1 tab PO Q8H PRN PRN Reason: PAIN LEVEL 6-10 Last Admin: 05/08/19 06:40 Dose: 1 tab Acetazolamide (Diamox -) 250 mg PO BID [facility] Last Admin: 05/07/19 21:08 Dose: 250 mg Albuterol Sulfate (Ventolin Hfa Inhaler -) 2 puff IH BID PRN PRN Reason: SHORTNESS OF BREATH Alprazolam (Xanax -) 0.5 mg PO Q8H PRN PRN Reason: ANXIETY Amlodipine Besylate (Norvasc -) 10 mg PO DAILY [facility] Last Admin: 05/08/19 09:37 Dose: Not Given Dorzolamide HCl (Trusopt 2%) 1 drop OU BID [facility] Last Admin: 05/07/19 21:09 Dose: 1 drop Famotidine (Pepcid -) 20 mg PO BID [facility] Last Admin: 05/07/19 21:07 Dose: 20 mg Glipizide (Glucotrol -) 5 mg PO ACBK [facility] Last Admin: 05/08/19 06:40 Dose: 5 mg Insulin Aspart (Novolog Vial Sliding Scale -) 1 vial SQ [facility]; Protocol Last Admin: 05/08/19 06:39 Dose: 2 units Insulin Aspart (Novolog Mix 70/30 Vial) 8 units SQ DAILY@0700 [facility] Last Admin: 05/08/19 06:39 Dose: 8 units Latanoprost (Xalatan 0.005% Eye Drops -) 1 drop OU HS [facility] Last Admin: 05/07/19 21:09 Dose: 1 drop Losartan Potassium (Cozaar -) 50 mg PO DAILY [facility] Last Admin: 05/08/19 09:37 Dose: Not Given Nystatin (Nystatin Oral Suspension -) 500,000 units PO Q6HPO [facility] Pilocarpine HCl (Pilostat 2% -) 1 drop OU BID [facility] Last Admin: 05/07/19 21:09 Dose: 1 drop Timolol Maleate (Timoptic 0.5%) 1 drop OU DAILY [facility] - Objective Vital Signs: Vital Signs Temperature 98.1 F 05/08/19 08:53 Pulse Rate 87 02/21/20 08:53 Respiratory Rate 18 05/08/19 08:53 Blood Pressure 107/46 L 05/08/19 08:53 O2 Sat by Pulse Oximetry (%) 94 L 05/08/19 08:30 Constitutional: Yes: Anxious Eyes: Yes: WNL HENT: Yes: Rhinnorhea, Thrush, Tonsillar Exudate, Other Neck: Yes: WNL Cardiovascular: Yes: WNL Respiratory: Yes: On Nasal O2 Gastrointestinal: Yes: Normal Bowel Sounds ...Rectal Exam: Yes: Deferred Genitourinary: Yes: WNL Musculoskeletal: Yes: WNL Edema: No Neurological: Yes: Alert Psychiatric: Yes: Alert Labs: CBC, BMP 05/05/19 17:20 05/05/19 18:15 Assessment/Plan Started on Nystatin and diflucan
--- NOTE | 2019-05-08 10:29 | PN ---
Progress Note (short form) - Note Progress Note: 83-year-old female with long-standing history of COPD was admitted with progressive dyspnea severe orthopnea and dyspneaon minimal exertion.. Long- standing history of insulin-dependent diabetes mellitus, congestive heart failure, peripheral arterial disease, tobacco abuse. C/o painful dysphagia and diagnosed to have thrush abd started on therapy by Dr. Manzo. No SOB reported, no paroxysmal nocturnal dyspnea or orthopnea. No history of chest pain or discomfort. No palpitations. weight increase. Active Medications Acetaminophen/Codeine Phosphate (Tylenol # 3 -) 1 tab PO Q8H PRN PRN Reason: PAIN LEVEL 6-10 Last Admin: 05/08/19 06:40 Dose: 1 tab Acetazolamide (Diamox -) 250 mg PO BID [facility] Last Admin: 05/07/19 21:08 Dose: 250 mg Albuterol Sulfate (Ventolin Hfa Inhaler -) 2 puff IH BID PRN PRN Reason: SHORTNESS OF BREATH Alprazolam (Xanax -) 0.5 mg PO Q8H PRN PRN Reason: ANXIETY Amlodipine Besylate (Norvasc -) 10 mg PO DAILY [facility] Last Admin: 05/08/19 09:37 Dose: Not Given Dorzolamide HCl (Trusopt 2%) 1 drop OU BID [facility] Last Admin: 05/07/19 21:09 Dose: 1 drop Famotidine (Pepcid -) 20 mg PO BID [facility] Last Admin: 05/07/19 21:07 Dose: 20 mg Fluconazole (Diflucan -) 100 mg PO DAILY [facility] Glipizide (Glucotrol -) 5 mg PO ACBK [facility] Last Admin: 05/08/19 06:40 Dose: 5 mg Insulin Aspart (Novolog Vial Sliding Scale -) 1 vial SQ ACHS [facility]; Protocol Last Admin: 05/08/19 06:39 Dose: 2 units Insulin Aspart (Novolog Mix 70/30 Vial) 8 units SQ DAILY@0700 [facility] Last Admin: 05/08/19 06:39 Dose: 8 units Latanoprost (Xalatan 0.005% Eye Drops -) 1 drop OU HS [facility] Last Admin: 05/07/19 21:09 Dose: 1 drop Losartan Potassium (Cozaar -) 50 mg PO DAILY [facility] Last Admin: 05/08/19 09:37 Dose: Not Given Nystatin (Nystatin Oral Suspension -) 500,000 units PO Q6HPO [facility] Pilocarpine HCl (Pilostat 2% -) 1 drop OU BID [facility] Last Admin: 05/07/19 21:09 Dose: 1 drop Timolol Maleate (Timoptic 0.5%) 1 drop OU DAILY [facility] Last Vital Signs Temp Pulse Resp BP Pulse Ox 98.1 F 87 18 107/46 L 94 L 05/08/19 08:53 05/08/19 08:53 05/08/19 08:53 05/08/19 08:53 05/08/19 08:30 Intake & Output 05/05/19 05/06/19 05/07/19 05/08/19 23:59 23:59 23:59 23:59 Intake Total 350 Balance 350 Weight 45.813 kg 45.132 kg 44.906 kg 46.176 kg Neck:Supple, no jugular venous distention, slightly positive hepatojugular reflux, carotids 2+, unable to appreciate any bruits or thyromegaly. Heart: PMI in the fifth intercostal space, slight apical and left parasternal heave, heart sounds were distant, a grade 1/6 decrescendo systolic murmur heard along the left sternal border. No diastolic murmur or gallops were heard. Lungs: Bilateral scattered expiratory wheezing. No crepitations were heard, breath sounds at the bases were decreased. Abdomen; Soft, nontender, no hepatosplenomegaly or palpable masses were appreciated. Small reducible umbilical hernia Extremities: No calf tenderness, 1-2+ left lower extremity edema. left lower extremity was cool and dorsalis pedis pulses and posterior tibial pulses were absent. Right lower extremity dorsalis pedis pulse was palpable, posterior tibial could not be palpated. Bilateral femoral pulses were 2+. Laboratory Results - last 24 hr 05/06/19 05/06/19 05/07/19 21:34 23:51 05:52 POC Glucometer 404 266 104 05/07/19 05/07/19 12:00 17:13 POC Glucometer 179 152 Impression: 1. Acute exacerbation of COPD. 2. Congestive heart failure precipitated by #1. 3. Cor pulmonale needs exclusion. 4. Insulin-dependent diabetes mellitus. 5. Poor compliance. 6. Tobacco abuse. 7. Oral thrush. Recommendations: 1. Lasix 40mg po daily. 2. Follow-up ECG and troponin levels. 3. Continue current cardiac medications. 4. Close f/u BMP. Prognosis: guarded. Raul Aguilar MD; [facility]ACC
[2019-05-08] MEDS ORDERED: FUROSEMIDE 40 MG TABLET (FP) PO ONE (11:00)
[2019-05-08] MEDS: NYSTATIN 500,000 UNITS/5 ML SUSPENSION PO SCH ×3 (11:15→23:07)
[2019-05-08] MEDS: FLUCONAZOLE 100 MG TABLET (UD) PO SCH (11:16)
[2019-05-08] MEDS: TIMOLOL 0.5% OPHTHALMIC SOL 5 ML BOTTLE OU SCH (11:17)
[2019-05-08] MEDS: FAMOTIDINE 20 MG TABLET PO SCH ×2 (11:17→22:36)
[2019-05-08] MEDS: PILOCARPINE 2% OPHTHALMIC SOLUTION 15 ML BOTTLE OU SCH ×2 (11:17→22:43)
[2019-05-08] MEDS: DORZOLAMIDE 2% HCL OPHTHALMIC SOLUTION 10 ML BOTTLE OU SCH ×2 (11:18→22:44)
[2019-05-08] MEDS ORDERED: PT OWN MED DRAWER 7, Y5N ONE ×3 (11:30→22:26)
[2019-05-08] MEDS: acetaZOLAMIDE 250 MG TABLET PO SCH ×2 (11:34→22:36)
[2019-05-08 12:24] LABS: BLOOD UREA NITROGEN 40.2 mg/dL (7-18); CALCIUM 8.5 mg/dL (8.5-10.1); CREATININE 1.1 mg/dL (0.55-1.3); POTASSIUM 3.5 mmol/L (3.5-5.1)
[2019-05-08] MEDS: LATANOPROST 0.005% OPHTH SOLN 2.5ML BOTTLE OU SCH (22:44)
[2019-05-09] MEDS: NYSTATIN 500,000 UNITS/5 ML SUSPENSION PO SCH ×4 (06:01→23:34)
[2019-05-09] MEDS: ACETAMINOPHEN WITH CODEINE 300MG/30MG TABLET PO PRN (06:01)
[2019-05-09] MEDS: glipiZIDE 5 MG TABLET (FP) PO SCH (06:02)
[2019-05-09] MEDS: INSULIN (NOVOLOG MIX 70/30) 100 UNITS/ML MDV SQ SCH (06:41)
[2019-05-09] MEDS: INSULIN SLIDING SCALE (NOVOLOG) 1 VIAL SQ SCH ×4 (06:42→21:51)
[2019-05-09 08:11] LABS: ANION GAP 5 MMOL/L (8-16); BLOOD UREA NITROGEN 33.5 mg/dL (7-18); CHLORIDE 105 mmol/L (98-107); CO2 29 mmol/L (21-32); CREATININE 1.1 mg/dL (0.55-1.3); GLUCOSE,RANDOM 120 mg/dL (74-106); SODIUM 139 mmol/L (136-145)
[2019-05-09] MEDS ORDERED: PT OWN MED DRAWER 7, Y5N ONE ×3 (10:31→21:43)
[2019-05-09] MEDS: FUROSEMIDE 20 MG TABLET (FP) PO SCH (10:37)
[2019-05-09] MEDS: amLODIPine BESYLATE 10 MG TABLET (FP) PO SCH (10:37)
[2019-05-09] MEDS: FLUCONAZOLE 100 MG TABLET (UD) PO SCH (10:37)
[2019-05-09] MEDS: FAMOTIDINE 20 MG TABLET PO SCH ×2 (10:37→21:51)
[2019-05-09] MEDS: acetaZOLAMIDE 250 MG TABLET PO SCH ×2 (10:37→21:51)
[2019-05-09] MEDS: LOSARTAN POTASSIUM 50 MG TABLET (FP) PO SCH (10:38)
[2019-05-09] MEDS: DORZOLAMIDE 2% HCL OPHTHALMIC SOLUTION 10 ML BOTTLE OU SCH ×2 (10:40→21:55)
[2019-05-09] MEDS: TIMOLOL 0.5% OPHTHALMIC SOL 5 ML BOTTLE OU SCH (10:40)
[2019-05-09] MEDS: PILOCARPINE 2% OPHTHALMIC SOLUTION 15 ML BOTTLE OU SCH ×2 (10:40→21:54)
--- NOTE | 2019-05-09 16:51 | PN ---
Progress Note (short form) - Note Progress Note: 83-year-old female with long-standing history of COPD was admitted with progressive dyspnea severe orthopnea and dyspneaon minimal exertion.. Long- standing history of insulin-dependent diabetes mellitus, congestive heart failure, peripheral arterial disease, tobacco abuse. Lethargic back on BiPAP, patient received Tylenol #3 for painand may be a contributing factor. Active Medications Acetaminophen/Codeine Phosphate (Tylenol # 3 -) 1 tab PO Q8H PRN PRN Reason: PAIN LEVEL 6-10 Last Admin: 05/09/19 06:01 Dose: 1 tab Acetazolamide (Diamox -) 250 mg PO BID [facility] Last Admin: 05/09/19 10:37 Dose: 250 mg Albuterol Sulfate (Ventolin Hfa Inhaler -) 2 puff IH BID PRN PRN Reason: SHORTNESS OF BREATH Alprazolam (Xanax -) 0.5 mg PO Q8H PRN PRN Reason: ANXIETY Amlodipine Besylate (Norvasc -) 10 mg PO DAILY [facility] Last Admin: 05/09/19 10:37 Dose: 10 mg Dorzolamide HCl (Trusopt 2%) 1 drop OU BID [facility] Last Admin: 05/09/19 10:40 Dose: 1 drp Famotidine (Pepcid -) 20 mg PO BID [facility] Last Admin: 05/09/19 10:37 Dose: 20 mg Fluconazole (Diflucan -) 100 mg PO DAILY [facility] Last Admin: 05/09/19 10:37 Dose: 100 mg Furosemide (Lasix -) 20 mg PO DAILY [facility] Last Admin: 05/09/19 10:37 Dose: 20 mg Glipizide (Glucotrol -) 5 mg PO ACBK [facility] Last Admin: 05/09/19 06:02 Dose: 5 mg Insulin Aspart (Novolog Vial Sliding Scale -) 1 vial SQ ACHS [facility]; Protocol Last Admin: 05/09/19 12:44 Dose: Not Given Insulin Aspart (Novolog Mix 70/30 Vial) 8 units SQ DAILY@0700 [facility] Last Admin: 05/09/19 06:41 Dose: 8 units Latanoprost (Xalatan 0.005% Eye Drops -) 1 drop OU HS [facility] Last Admin: 05/08/19 22:44 Dose: 1 drop Losartan Potassium (Cozaar -) 50 mg PO DAILY [facility] Last Admin: 05/09/19 10:38 Dose: 50 mg Nystatin (Nystatin Oral Suspension -) 500,000 units PO Q6HPO [facility] Last Admin: 05/09/19 12:44 Dose: 500,000 units Pilocarpine HCl (Pilostat 2% -) 1 drop OU BID [facility] Last Admin: 05/09/19 10:40 Dose: 1 drop Timolol Maleate (Timoptic 0.5%) 1 drop OU DAILY [facility] Last Admin: 05/09/19 10:40 Dose: 1 drop Last Vital Signs Temp Pulse Resp BP Pulse Ox 97.6 F 88 22 H 123/57 L 98 05/09/19 15:26 05/09/19 15:26 05/09/19 15:05/09/19 15:05/09/19 09:00 Neck:Supple, no jugular venous distention, slightly positive hepatojugular reflux, carotids 2+, unable to appreciate any bruits or thyromegaly. Heart: PMI in the fifth intercostal space, slight apical and left parasternal heave, heart sounds were distant, a grade 1/6 decrescendo systolic murmur heard along the left sternal border. No diastolic murmur or gallops were heard. Lungs: Bilateral scattered expiratory wheezing and crepitations. Abdomen: Soft, nontender, no hepatosplenomegaly or palpable masses were appreciated. Small reducible umbilical hernia Extremities: No calf tenderness, 1-2+ left lower extremity edema. left lower extremity was cool and dorsalis pedis pulses and posterior tibial pulses were absent. Right lower extremity dorsalis pedis pulse was palpable, posterior tibial could not be palpated. Bilateral femoral pulses were 2+. Laboratory Results - last 24 hr 05/08/19 05/08/19 05/09/19 17:26 22:35 05:50 Sodium 139 Potassium No Result Required. Chloride 105 Carbon Dioxide 29 Anion Gap 5 L BUN 33.5 H Creatinine 1.1 Est GFR (CKD-EPI)AfAm 53.39 Est GFR (CKD-EPI)NonAf 46.07 POC Glucometer 116 218 Random Glucose 120 H Calcium 9.0 05/09/19 05/09/19 05/09/19 06:00 11:52 16:45 Sodium Potassium Chloride Carbon Dioxide Anion Gap BUN Creatinine Est GFR (CKD-EPI)AfAm Est GFR (CKD-EPI)NonAf POC Glucometer 154 109 129 Random Glucose Calcium Impression: 1. Astmatic bronchitis with acute exacerbation.. 2. Recurrence of lethargy; a). Related to Tylenlo #3. b). Exacebation of COPD. 3. Congestive heart failure. 4. Insulin-dependent diabetes mellitus. 5. Poor compliance. 6. Tobacco abuse. 7. Oral thrush. Recommendations: 1. Avoid codiene. 2. Continue current cardiac medications. 3. ABG Prognosis: guarded. Raul Aguilar MD; [facility]
[2019-05-09] MEDS: ALPRAZolam 0.25 MG TABLET PO PRN (18:40)
--- NOTE | 2019-05-09 21:09 | PN ---
Progress Note, Physician Chief Complaint: c/o SOB - Current Medication List Current Medications: Active Medications Acetaminophen/Codeine Phosphate (Tylenol # 3 -) 1 tab PO Q8H PRN PRN Reason: PAIN LEVEL 6-10 Last Admin: 05/09/19 06:01 Dose: 1 tab Acetazolamide (Diamox -) 250 mg PO BID [facility] Last Admin: 05/09/19 10:37 Dose: 250 mg Albuterol Sulfate (Ventolin Hfa Inhaler -) 2 puff IH BID PRN PRN Reason: SHORTNESS OF BREATH Alprazolam (Xanax -) 0.5 mg PO Q8H PRN PRN Reason: ANXIETY Last Admin: 05/09/19 18:40 Dose: 0.5 mg Amlodipine Besylate (Norvasc -) 10 mg PO DAILY [facility] Last Admin: 05/09/19 10:37 Dose: 10 mg Dorzolamide HCl (Trusopt 2%) 1 drop OU BID [facility] Last Admin: 05/09/19 10:40 Dose: 1 drp Famotidine (Pepcid -) 20 mg PO BID [facility] Last Admin: 05/09/19 10:37 Dose: 20 mg Fluconazole (Diflucan -) 100 mg PO DAILY [facility] Last Admin: 05/09/19 10:37 Dose: 100 mg Furosemide (Lasix -) 20 mg PO DAILY [facility] Last Admin: 05/09/19 10:37 Dose: 20 mg Glipizide (Glucotrol -) 5 mg PO ACBK [facility] Last Admin: 05/09/19 06:02 Dose: 5 mg Insulin Aspart (Novolog Vial Sliding Scale -) 1 vial SQ [facility]; Protocol Last Admin: 05/09/19 16:47 Dose: Not Given Insulin Aspart (Novolog Mix 70/30 Vial) 8 units SQ DAILY@0700 [facility] Last Admin: 05/09/19 06:41 Dose: 8 units Latanoprost (Xalatan 0.005% Eye Drops -) 1 drop OU HS [facility] Last Admin: 05/08/19 22:44 Dose: 1 drop Losartan Potassium (Cozaar -) 50 mg PO DAILY [facility] Last Admin: 05/09/19 10:38 Dose: 50 mg Methylprednisolone Sodium Succinate (Solu-Medrol -) 40 mg IVPUSH Q8H-IV [facility] Nystatin (Nystatin Oral Suspension -) 500,000 units PO Q6HPO [facility] Last Admin: 05/09/19 17:56 Dose: 500,000 units Pilocarpine HCl (Pilostat 2% -) 1 drop OU BID [facility] Last Admin: 05/09/19 10:40 Dose: 1 drop Timolol Maleate (Timoptic 0.5%) 1 drop OU DAILY [facility] Last Admin: 05/09/19 10:40 Dose: 1 drop - Objective Vital Signs: Vital Signs Temperature 98.9 F 05/09/19 17:49 Pulse Rate 84 05/09/19 17:49 Respiratory Rate 05/09/19 17:49 Blood Pressure 129/57 L 05/09/19 17:49 O2 Sat by Pulse Oximetry (%) 98 05/09/19 20:05 Elderly frail F c/o SOB HEENT: Mm dry, no oral thrush NECK; No JVD No Bruit CHEST: wheezing + CVS: S1S2 R ABD: No distention, non tender Bs + EXT; trace edema feet 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 focal Labs: CBC, BMP 05/05/19 17:20 05/09/19 05:50 Problem List - Problems (1) Acute exacerbation of CHF (congestive heart failure) Assessment/Plan: Patient is in decompensated congestive heart failure continue Lasix, beta- mayo and lisinopril follow-up cardiac recommendations Problems reviewed: Yes Code(s): I50.9 - HEART FAILURE, UNSPECIFIED Qualifiers: Heart failure type: unspecified Qualified Code(s): I50.9 - Heart failure, unspecified (2) COPD (chronic obstructive pulmonary disease) Assessment/Plan: Patient has advanced COPD continue O2 inhalation, will add DuoNeb, IV Solu- Medrol and pulmonary consult. Problems reviewed: Yes Code(s): J44.9 - CHRONIC OBSTRUCTIVE PULMONARY DISEASE, UNSPECIFIED (3) SOB (shortness of breath) Assessment/Plan: Due to COPD/CHF exacerbation Problems reviewed: Yes Code(s): R06.02 - SHORTNESS OF BREATH (4) T2DM (type 2 diabetes mellitus) Assessment/Plan: Optimize glycemic control. Problems reviewed: Yes Code(s): E11.9 - TYPE 2 DIABETES MELLITUS WITHOUT COMPLICATIONS
[2019-05-09] MEDS: methylPREDNISolone NA SUCC 40 MG/1 ML VIAL IVPUSH SCH (21:51)
[2019-05-09] MEDS: LATANOPROST 0.005% OPHTH SOLN 2.5ML BOTTLE OU SCH (21:55)
[2019-05-10] MEDS: methylPREDNISolone NA SUCC 40 MG/1 ML VIAL IVPUSH SCH ×3 (01:50→17:13)
[2019-05-10] MEDS: NYSTATIN 500,000 UNITS/5 ML SUSPENSION PO SCH ×4 (06:01→23:15)
[2019-05-10] MEDS: glipiZIDE 5 MG TABLET (FP) PO SCH (06:01)
[2019-05-10] MEDS: INSULIN SLIDING SCALE (NOVOLOG) 1 VIAL SQ SCH ×4 (06:01→21:58)
[2019-05-10] MEDS: INSULIN (NOVOLOG MIX 70/30) 100 UNITS/ML MDV SQ SCH (06:01)
[2019-05-10] MEDS: ACETAMINOPHEN WITH CODEINE 300MG/30MG TABLET PO PRN ×2 (07:09→15:44)
[2019-05-10 07:16] LABS: BASO % 0.1 % (0-2.0); HEMATOCRIT 41.2 % (32.4-45.2); HEMOGLOBIN 13.3 GM/dL (10.7-15.3); LYMPH % 3.4 % (8-40); MCH 30.6 pg (25.7-33.7); MCHC 32.2 g/dl (32.0-36.0); MEAN CELL VOLUME 94.9 fl (80-96); MEAN PLT VOLUME 9.5 fl (7.5-11.1); MONO % 0.9 % (3.8-10.2); NEUT % 95.6 % (42.8-82.8); PLATELET COUNT 177 K/MM3 (134-434); RBC 4.34 M/mm3 (3.60-5.2); WHITE BLOOD COUNT 14.1 K/mm3 (4.0-10.0)
[2019-05-10 07:40] LABS: BLOOD UREA NITROGEN 26.6 mg/dL (7-18); CALCIUM 8.8 mg/dL (8.5-10.1); CREATININE 0.9 mg/dL (0.55-1.3); POTASSIUM 3.4 mmol/L (3.5-5.1)
[2019-05-10] MEDS ORDERED: PT OWN MED DRAWER 7, Y5N ONE ×3 (09:16→21:54)
[2019-05-10] MEDS ORDERED: POTASSIUM CHLORIDE ORAL LIQUID 20 MEQ/15 ML PO ONE (09:26)
[2019-05-10] MEDS: FAMOTIDINE 20 MG TABLET PO SCH ×2 (09:43→21:54)
[2019-05-10] MEDS: acetaZOLAMIDE 250 MG TABLET PO SCH ×2 (09:44→21:55)
[2019-05-10] MEDS: LOSARTAN POTASSIUM 50 MG TABLET (FP) PO SCH (09:44)
[2019-05-10] MEDS: FLUCONAZOLE 100 MG TABLET (UD) PO SCH (09:44)
[2019-05-10] MEDS: TIMOLOL 0.5% OPHTHALMIC SOL 5 ML BOTTLE OU SCH (09:45)
[2019-05-10] MEDS: DORZOLAMIDE 2% HCL OPHTHALMIC SOLUTION 10 ML BOTTLE OU SCH ×2 (09:46→22:31)
[2019-05-10] MEDS: PILOCARPINE 2% OPHTHALMIC SOLUTION 15 ML BOTTLE OU SCH ×2 (09:46→22:36)
[2019-05-10] MEDS: ALPRAZolam 0.25 MG TABLET PO PRN (11:22)
[2019-05-10] MEDS: FUROSEMIDE 20 MG TABLET (FP) PO SCH (11:59)
[2019-05-10] MEDS: amLODIPine BESYLATE 10 MG TABLET (FP) PO SCH (12:00)
--- NOTE | 2019-05-10 12:00 | PN ---
Progress Note (short form) - Note Progress Note: PULMONARY CONSULTATION DICTATED 04/30/19 IMP LIKELY ACUTE ON CHRONIC HYPOXEMIC/HYPERCAPNEIC RESPIRATORY FAILURE COPD EXACERBATION ACUTE ON CHRONIC CHF DM PVD TOBACCO ABUSE PLAN INHALED BRONCHODILATORS SUPPLEMENTAL O2 NIPPV NEEDED MEDROL LASIX ECHO DAILY WTS CHEST CT SMOKING CESSATION COUNSELED DR DEVRIES Problem List - Problems (1) Acute on chronic respiratory failure with hypoxia and hypercapnia Code(s): J96.21 - ACUTE AND CHRONIC RESPIRATORY FAILURE WITH HYPOXIA; J96.22 - ACUTE AND CHRONIC RESPIRATORY FAILURE WITH HYPERCAPNIA (2) Acute respiratory failure Code(s): J96.00 - ACUTE RESPIRATORY FAILURE, UNSP W HYPOXIA OR HYPERCAPNIA Qualifiers: Respiratory failure complication: hypoxia Qualified Code(s): J96.01 - Acute respiratory failure with hypoxia (3) T2DM (type 2 diabetes mellitus) Code(s): E11.9 - TYPE 2 DIABETES MELLITUS WITHOUT COMPLICATIONS (4) CHF (congestive heart failure) Code(s): I50.9 - HEART FAILURE, UNSPECIFIED (5) H/O: HTN (hypertension) Code(s): Z86.79 - PERSONAL HISTORY OF OTHER DISEASES OF THE CIRCULATORY SYSTEM (6) SOB (shortness of breath) Code(s): R06.02 - SHORTNESS OF BREATH (7) Acute on chronic systolic CHF (congestive heart failure) Code(s): I50.23 - ACUTE ON CHRONIC SYSTOLIC (CONGESTIVE) HEART FAILURE (8) Tobacco abuse Code(s): Z72.0 - TOBACCO USE (9) Encounter for smoking cessation counseling Code(s): Z71.6 - TOBACCO ABUSE COUNSELING; Z72.0 - TOBACCO USE
[2019-05-10 14:09] LABS: PLATELET ESTIMATE ADEQUATE
--- NOTE | 2019-05-10 14:59 | PN ---
Progress Note (short form) - Note Progress Note: 83-year-old female with long-standing history of COPD was admitted with progressive dyspnea severe orthopnea and dyspneaon minimal exertion.. Long- standing history of insulin-dependent diabetes mellitus, congestive heart failure, peripheral arterial disease, tobacco abuse. Lethargic but arousable, No SOB reported. no chest pain or discomfort. Active Medications Acetaminophen/Codeine Phosphate (Tylenol # 3 -) 1 tab PO Q8H PRN PRN Reason: PAIN LEVEL 6-10 Last Admin: 05/10/19 07:09 Dose: 1 tab Acetazolamide (Diamox -) 250 mg PO BID [facility] Last Admin: 05/10/19 09:44 Dose: 250 mg Albuterol Sulfate (Ventolin Hfa Inhaler -) 2 puff IH BID PRN PRN Reason: SHORTNESS OF BREATH Albuterol/Ipratropium (Duoneb -) 1 amp NEB Q6H PRN PRN Reason: SHORTNESS OF BREATH Alprazolam (Xanax -) 0.5 mg PO Q8H PRN PRN Reason: ANXIETY Last Admin: 05/10/19 11:22 Dose: 0.5 mg Amlodipine Besylate (Norvasc -) 10 mg PO DAILY [facility] Last Admin: 05/10/19 12:00 Dose: Not Given Dorzolamide HCl (Trusopt 2%) 1 drop OU BID [facility] Last Admin: 05/10/19 09:46 Dose: 1 drp Famotidine (Pepcid -) 20 mg PO BID [facility] Last Admin: 05/10/19 09:43 Dose: 20 mg Fluconazole (Diflucan -) 100 mg PO DAILY [facility] Last Admin: 05/10/19 09:44 Dose: 100 mg Furosemide (Lasix -) 20 mg PO DAILY [facility] Last Admin: 05/10/19 11:59 Dose: Not Given Glipizide (Glucotrol -) 5 mg PO ACBK [facility] Last Admin: 05/10/19 06:01 Dose: 5 mg Insulin Aspart (Novolog Vial Sliding Scale -) 1 vial SQ [facility]; Protocol Last Admin: 05/10/19 11:59 Dose: Not Given Insulin Aspart (Novolog Mix 70/30 Vial) 8 units SQ DAILY@0700 [facility] Last Admin: 05/10/19 06:01 Dose: 8 units Latanoprost (Xalatan 0.005% Eye Drops -) 1 drop OU HS [facility] Last Admin: 05/09/19 21:55 Dose: 1 drop Losartan Potassium (Cozaar -) 50 mg PO DAILY [facility] Last Admin: 05/10/19 09:44 Dose: 50 mg Methylprednisolone Sodium Succinate (Solu-Medrol -) 40 mg IVPUSH Q8H-IV [facility] Last Admin: 05/10/19 09:44 Dose: 40 mg Nystatin (Nystatin Oral Suspension -) 500,000 units PO Q6HPO [facility] Last Admin: 05/10/19 12:45 Dose: 500,000 units Pilocarpine HCl (Pilostat 2% -) 1 drop OU BID [facility] Last Admin: 05/10/19 09:46 Dose: 1 drop Timolol Maleate (Timoptic 0.5%) 1 drop OU DAILY [facility] Last Admin: 05/10/19 09:45 Dose: 1 drop Vital Signs: BP: 124/90mmHg. Pulse: 77/min. Temp: 98.1degree F. Resp: 18/ min. O2 sat: 98.1% Neck:Supple, no jugular venous distention, slightly positive hepatojugular reflux, carotids 2+, unable to appreciate any bruits or thyromegaly. Heart: PMI in the fifth intercostal space, slight apical and left parasternal heave, heart sounds were distant, a grade 1/6 decrescendo systolic murmur heard along the left sternal border. No diastolic murmur or gallops were heard. Lungs: Bilateral scattered expiratory wheezing and crepitations. Abdomen: Soft, nontender, no hepatosplenomegaly or palpable masses were appreciated. Small reducible umbilical hernia Extremities: No calf tenderness, 1-2+ left lower extremity edema. left lower extremity was cool and dorsalis pedis pulses and posterior tibial pulses were absent. Right lower extremity dorsalis pedis pulse was palpable, posterior tibial could not be palpated. Bilateral femoral pulses were 2+. CBC, BMP 05/10/19 06:40 05/10/19 06:40 Impression: 1. Asthmatic bronchitis with acute exacerbation. 2. COPD 3. Congestive heart failure. 4. Insulin-dependent diabetes m Recurrence of lethargy; 5. Tobacco abuse. 6. Oral thrush. Recommendations: 1. Continue current cardiac medications. 2. F/u X-Ray. Prognosis: guarded. Raul Aguilar MD; [facility]
--- NOTE | 2019-05-10 17:38 | PN ---
Progress Note, Physician Chief Complaint: c/o SOB - Current Medication List Current Medications: Active Medications Acetaminophen/Codeine Phosphate (Tylenol # 3 -) 1 tab PO Q8H PRN PRN Reason: PAIN LEVEL 6-10 Last Admin: 05/10/19 15:44 Dose: 1 tab Acetazolamide (Diamox -) 250 mg PO BID [facility] Last Admin: 05/10/19 09:44 Dose: 250 mg Albuterol Sulfate (Ventolin Hfa Inhaler -) 2 puff IH BID PRN PRN Reason: SHORTNESS OF BREATH Albuterol/Ipratropium (Duoneb -) 1 amp NEB Q6H PRN PRN Reason: SHORTNESS OF BREATH Alprazolam (Xanax -) 0.5 mg PO Q8H PRN PRN Reason: ANXIETY Last Admin: 05/10/19 11:22 Dose: 0.5 mg Amlodipine Besylate (Norvasc -) 10 mg PO DAILY [facility] Last Admin: 05/10/19 12:00 Dose: Not Given Dorzolamide HCl (Trusopt 2%) 1 drop OU BID [facility] Last Admin: 05/10/19 09:46 Dose: 1 drp Famotidine (Pepcid -) 20 mg PO BID [facility] Last Admin: 05/10/19 09:43 Dose: 20 mg Fluconazole (Diflucan -) 100 mg PO DAILY [facility] Last Admin: 05/10/19 09:44 Dose: 100 mg Furosemide (Lasix -) 20 mg PO DAILY [facility] Last Admin: 05/10/19 11:59 Dose: Not Given Glipizide (Glucotrol -) 5 mg PO ACBK [facility] Last Admin: 05/10/19 06:01 Dose: 5 mg Insulin Aspart (Novolog Vial Sliding Scale -) 1 vial SQ [facility]; Protocol Last Admin: 05/10/19 16:53 Dose: 2 units Insulin Aspart (Novolog Mix 70/30 Vial) 8 units SQ DAILY@0700 [facility] Last Admin: 05/10/19 06:01 Dose: 8 units Latanoprost (Xalatan 0.005% Eye Drops -) 1 drop OU HS [facility] Last Admin: 05/09/19 21:55 Dose: 1 drop Losartan Potassium (Cozaar -) 50 mg PO DAILY [facility] Last Admin: 05/10/19 09:44 Dose: 50 mg Methylprednisolone Sodium Succinate (Solu-Medrol -) 40 mg IVPUSH Q8H-IV [facility] Last Admin: 05/10/19 17:13 Dose: 40 mg Nystatin (Nystatin Oral Suspension -) 500,000 units PO Q6HPO [facility] Last Admin: 05/10/19 17:13 Dose: 500,000 units Pilocarpine HCl (Pilostat 2% -) 1 drop OU BID [facility] Last Admin: 05/10/19 09:46 Dose: 1 drop Timolol Maleate (Timoptic 0.5%) 1 drop OU DAILY [facility] Last Admin: 05/10/19 09:45 Dose: 1 drop - Objective Vital Signs: Vital Signs Temperature 98.3 F 05/10/19 17:19 Pulse Rate 83 05/10/19 17:19 Respiratory Rate 18 05/10/19 17:19 Blood Pressure 116/60 05/10/19 17:19 O2 Sat by Pulse Oximetry (%) 99 05/10/19 09:00 Elderly frail F c/o SOB HEENT: Mm dry, no oral thrush NECK; No JVD No Bruit CHEST: Poor air entry wheezing/rales + CVS: S1S2 R ABD: No distention, non tender Bs + EXT; + edema feet [employer] OPERATOR: AOX3 non focal Labs: CBC, BMP 05/10/19 06:40 05/10/19 06:40 Problem List - Problems (1) Acute exacerbation of CHF (congestive heart failure) Assessment/Plan: Patient is in decompensated congestive heart failure continue Lasix, beta- mayo and lisinopril follow-up cardiac recommendations Code(s): I50.9 - HEART FAILURE, UNSPECIFIED Qualifiers: Heart failure type: unspecified Qualified Code(s): I50.9 - Heart failure, unspecified (2) COPD (chronic obstructive pulmonary disease) Assessment/Plan: Patient has advanced COPD continue O2 inhalation, will add DuoNeb, IV Solu- Medrol and pulmonary consult. Code(s): J44.9 - CHRONIC OBSTRUCTIVE PULMONARY DISEASE, UNSPECIFIED (3) SOB (shortness of breath) Assessment/Plan: Due to COPD/CHF exacerbation Code(s): R06.02 - SHORTNESS OF BREATH (4) T2DM (type 2 diabetes mellitus) Assessment/Plan: Optimize glycemic control. Code(s): E11.9 - TYPE 2 DIABETES MELLITUS WITHOUT COMPLICATIONS (5) Hypokalemia Assessment/Plan: Repleted follow-up BMP and magnesium Problems reviewed: Yes Code(s): E87.6 - HYPOKALEMIA
--- NOTE | 2019-05-10 18:31 | CONS ---
DATE OF CONSULTATION: 05/10/2019 REFERRING PHYSICIAN: Margareth Manzo MD The patient is an 83-year-old female with past medical history of COPD, congestive heart failure, insulin-dependent diabetes mellitus, long-standing history of tobacco use, currently still smoking, recently hospitalized at [facility] approximately 2 weeks prior to this admission secondary to shortness of breath, and was felt to be in congestive heart failure, was discharged home in stable condition, was doing well until she started developing increasing shortness of breath with minimal exertion, orthopnea, and lower extremity edema. The patient also complained of a cough, nonproductive. In the emergency room, she was noted to be hypoxic, requiring BiPAP. She was transferred out to medical telemetry unit for management. In the ER, she was also treated with inhaled bronchodilators as well as Lasix, with clinical improvement. She was noted on ABG to have hypercapnic hypoxic respiratory failure. Patient denies any history of occupational exposure to chemicals or fumes. She states she has been on oxygen for the past couple of weeks. She does normally complain of shortness of breath with exertion. Denies any weight loss or night sweats. Past medical history, again, includes congestive heart failure; COPD, advanced; diabetes; hypertension; also peripheral vascular disease. REVIEW OF SYSTEMS: Positive orthopnea, positive dyspnea, positive nonproductive cough. No chest pain, no palpitation. No nausea or vomiting. Positive lower extremity edema. SOCIAL HISTORY: History of tobacco use since age 17. Current medications include Solu-Medrol 40 q.8, Cozaar, Diflucan, Xanax, albuterol, DuoNeb, Timoptic, Diamox, Trusopt, Norvasc, Novolin, Lasix, Tylenol, nystatin, and Glucotrol. PHYSICAL EXAMINATION: General: The patient is an elderly female, awake, alert, mildly dyspneic but in no acute distress. Vital Signs: She is currently afebrile. Blood pressure 103/57. Respiratory rate 18. O2 saturation is 98% on 3 L. HEENT: Normocephalic, atraumatic. Neck: Supple. Heart: Regular, S1, S2. Chest: Bibasilar bilateral crackles one-third up with a few scattered wheezes. Abdomen: Soft. Bowel sounds positive. Extremities: No cyanosis, edema. LABORATORY DATA: Initial blood gas: 7.28, pCO2 of 73, pO2 of less than 49, bicarbonate 33, saturation of 33, that was on initial VBG. Initial blood gas: 7.37, pCO2 of 51, pO2 of 111, bicarbonate of 29, saturation of 97 on unknown quantity of oxygen. Chest x-ray: No definitive infiltrates and/or effusions. WBC is 14.1, hemoglobin 13.3, hematocrit 41.2, with a platelet count of 177,000. Chemistries: BUN 26, creatinine 0.9. BNP 1825. IMPRESSION: Likely acute on chronic hypoxic hypercapnic respiratory failure secondary to: 1. Chronic obstructive pulmonary disease with acute exacerbation. 2. Acute on chronic congestive heart failure. 3. Diabetes. 4. Peripheral vascular disease. PLAN: Inhaled bronchodilators, supplemental O2, Medrol, BiPAP as needed, Lasix. Obtain echo, daily weights, CT scan of the chest. Smoking cessation counseled as well. Will get an ambulatory O2 saturation on room air prior to discharge to confirm if patient requires home oxygen therapy, also a PFT as outpatient. ROSE DEVRIES M.D. [id number]
[2019-05-10] MEDS: ALBUTEROL SO4 2.5/IPRATROPIUM 0.5 INH SOL 3 ML VIAL.NEB. NEB PRN (19:55)
[2019-05-10] MEDS: LATANOPROST 0.005% OPHTH SOLN 2.5ML BOTTLE OU SCH (22:34)
[2019-05-11] MEDS: methylPREDNISolone NA SUCC 40 MG/1 ML VIAL IVPUSH SCH ×3 (01:46→18:27)
[2019-05-11] MEDS: ACETAMINOPHEN WITH CODEINE 300MG/30MG TABLET PO PRN ×2 (03:38→15:17)
[2019-05-11] MEDS: INSULIN (NOVOLOG MIX 70/30) 100 UNITS/ML MDV SQ SCH (06:33)
[2019-05-11] MEDS: INSULIN SLIDING SCALE (NOVOLOG) 1 VIAL SQ SCH ×4 (06:33→21:30)
[2019-05-11] MEDS: NYSTATIN 500,000 UNITS/5 ML SUSPENSION PO SCH ×3 (06:33→18:27)
[2019-05-11] MEDS: glipiZIDE 5 MG TABLET (FP) PO SCH (06:34)
[2019-05-11 07:24] LABS: BLOOD UREA NITROGEN 38.6 mg/dL (7-18); CALCIUM 8.4 mg/dL (8.5-10.1); CREATININE 1.1 mg/dL (0.55-1.3); POTASSIUM 3.7 mmol/L (3.5-5.1)
--- NOTE | 2019-05-11 08:55 | PN ---
Progress Note (short form) - Note Progress Note: 83-year-old female with long-standing history of COPD was admitted with progressive dyspnea severe orthopnea and dyspneaon minimal exertion.. Long- standing history of insulin-dependent diabetes mellitus, congestive heart failure, peripheral arterial disease, tobacco abuse. Eating breakfast, no SOB reported, No chest pain. Active Medications Acetaminophen/Codeine Phosphate (Tylenol # 3 -) 1 tab PO Q8H PRN PRN Reason: PAIN LEVEL 6-10 Last Admin: 05/10/19 07:09 Dose: 1 tab Acetazolamide (Diamox -) 250 mg PO BID [facility] Last Admin: 05/10/19 09:44 Dose: 250 mg Albuterol Sulfate (Ventolin Hfa Inhaler -) 2 puff IH BID PRN PRN Reason: SHORTNESS OF BREATH Albuterol/Ipratropium (Duoneb -) 1 amp NEB Q6H PRN PRN Reason: SHORTNESS OF BREATH Alprazolam (Xanax -) 0.5 mg PO Q8H PRN PRN Reason: ANXIETY Last Admin: 05/10/19 11:22 Dose: 0.5 mg Amlodipine Besylate (Norvasc -) 10 mg PO DAILY [facility] Last Admin: 05/10/19 12:00 Dose: Not Given Dorzolamide HCl (Trusopt 2%) 1 drop OU BID [facility] Last Admin: 05/10/19 09:46 Dose: 1 drp Famotidine (Pepcid -) 20 mg PO BID [facility] Last Admin: 05/10/19 09:43 Dose: 20 mg Fluconazole (Diflucan -) 100 mg PO DAILY [facility] Last Admin: 05/10/19 09:44 Dose: 100 mg Furosemide (Lasix -) 20 mg PO DAILY [facility] Last Admin: 05/10/19 11:59 Dose: Not Given Glipizide (Glucotrol -) 5 mg PO ACBK [facility] Last Admin: 05/10/19 06:01 Dose: 5 mg Insulin Aspart (Novolog Vial Sliding Scale -) 1 vial SQ [facility]; Protocol Last Admin: 05/10/19 11:59 Dose: Not Given Insulin Aspart (Novolog Mix 70/30 Vial) 8 units SQ DAILY@0700 [facility] Last Admin: 05/10/19 06:01 Dose: 8 units Latanoprost (Xalatan 0.005% Eye Drops -) 1 drop OU HS [facility] Last Admin: 05/09/19 21:55 Dose: 1 drop Losartan Potassium (Cozaar -) 50 mg PO DAILY [facility] Last Admin: 05/10/19 09:44 Dose: 50 mg Methylprednisolone Sodium Succinate (Solu-Medrol -) 40 mg IVPUSH Q8H-IV [facility] Last Admin: 05/10/19 09:44 Dose: 40 mg Nystatin (Nystatin Oral Suspension -) 500,000 units PO Q6HPO [facility] Last Admin: 05/10/19 12:45 Dose: 500,000 units Pilocarpine HCl (Pilostat 2% -) 1 drop OU BID [facility] Last Admin: 05/10/19 09:46 Dose: 1 drop Timolol Maleate (Timoptic 0.5%) 1 drop OU DAILY [facility] Last Admin: 05/10/19 09:45 Dose: 1 drop Last Vital Signs Temp Pulse Resp BP Pulse Ox 98.0 F 72 18 93/50 L 99 05/11/19 06:00 05/11/19 06:00 05/11/19 06:00 05/11/19 06:00 05/11/19 04:15 Neck:Supple, no jugular venous distention, -ve HJR , carotids 2+, no bruits hesrd. No thyromegaly. Heart: PMI in the fifth intercostal space, slight apical and left parasternal heave, heart sounds were distant, a grade 1/6 decrescendo systolic murmur heard along the left sternal border. No diastolic murmur or gallops were heard. Lungs: Bilateral scattered expiratory wheezing and crepitations. Abdomen: Soft, nontender, no hepatosplenomegaly or palpable masses were appreciated. Small reducible umbilical hernia Extremities: No calf tenderness, 1-2+ left lower extremity edema. left lower extremity was cool and dorsalis pedis pulses and posterior tibial pulses were absent. Right lower extremity dorsalis pedis pulse was palpable, posterior tibial could not be palpated. Bilateral femoral pulses were 2+. CBC, BMP 05/10/19 06:40 05/11/19 06:10 Impression: 1. Asthmatic bronchitis, resolving. 2. COPD 3. Congestive heart failure. 4. Insulin-dependent diabetes m Recurrence of lethargy; 5. Tobacco abuse. 6. Oral thrush. Recommendations: 1. Continue current cardiac medications. 2. F/u X-Ray. 3. BMP and CBC. Prognosis: guarded. Raul Aguilar MD; FACC
[2019-05-11] MEDS: acetaZOLAMIDE 250 MG TABLET PO SCH ×2 (09:16→21:23)
[2019-05-11] MEDS: ALPRAZolam 0.25 MG TABLET PO PRN (09:17)
[2019-05-11] MEDS: FAMOTIDINE 20 MG TABLET PO SCH ×2 (09:17→21:30)
[2019-05-11] MEDS: FLUCONAZOLE 100 MG TABLET (UD) PO SCH (09:17)
[2019-05-11] MEDS: DORZOLAMIDE 2% HCL OPHTHALMIC SOLUTION 10 ML BOTTLE OU SCH ×2 (09:19→21:31)
[2019-05-11] MEDS: TIMOLOL 0.5% OPHTHALMIC SOL 5 ML BOTTLE OU SCH (09:19)
[2019-05-11] MEDS: PILOCARPINE 2% OPHTHALMIC SOLUTION 15 ML BOTTLE OU SCH ×2 (09:19→21:31)
[2019-05-11] MEDS: FUROSEMIDE 20 MG TABLET (FP) PO SCH (10:09)
[2019-05-11] MEDS: amLODIPine BESYLATE 10 MG TABLET (FP) PO SCH (10:09)
[2019-05-11] MEDS: LOSARTAN POTASSIUM 50 MG TABLET (FP) PO SCH (10:09)
[2019-05-11] MEDS: ALBUTEROL SO4 2.5/IPRATROPIUM 0.5 INH SOL 3 ML VIAL.NEB. NEB PRN (10:27)
--- NOTE | 2019-05-11 14:00 | PN ---
Progress Note (short form) - Note Progress Note: PULMONARY States breathing better today. Less cough. CT chest showing basilar infiltrates , MONICA 1cm nodule and other scattered nodules. Vital Signs Period Temp Pulse Resp BP Sys/Elizalde Pulse Ox Last 24 Hr 97.4 F-98.3 F 72-88 18-18 93-124/50-90 96-99 Gen: mildly tachypneic at rest Heart: RRR Lung: distant breath sounds Abd: soft, nontender Ext: no edema CBC, BMP 05/10/19 06:40 05/11/19 06:10 Active Medications Acetaminophen/Codeine Phosphate (Tylenol # 3 -) 1 tab PO Q8H PRN PRN Reason: PAIN LEVEL 6-10 Last Admin: 05/11/19 03:38 Dose: 1 tab Acetazolamide (Diamox -) 250 mg PO BID [facility] Last Admin: 05/11/19 09:16 Dose: 250 mg Albuterol Sulfate (Ventolin Hfa Inhaler -) 2 puff IH BID PRN PRN Reason: SHORTNESS OF BREATH Albuterol/Ipratropium (Duoneb -) 1 amp NEB Q6H PRN PRN Reason: SHORTNESS OF BREATH Last Admin: 05/11/19 10:27 Dose: 1 amp Alprazolam (Xanax -) 0.5 mg PO Q8H PRN PRN Reason: ANXIETY Last Admin: 05/11/19 09:17 Dose: 0.5 mg Amlodipine Besylate (Norvasc -) 10 mg PO DAILY [facility] Last Admin: 05/11/19 10:09 Dose: 10 mg Dorzolamide HCl (Trusopt 2%) 1 drop OU BID [facility] Last Admin: 05/11/19 09:19 Dose: 1 drp Famotidine (Pepcid -) 20 mg PO BID [facility] Last Admin: 05/11/19 09:17 Dose: 20 mg Fluconazole (Diflucan -) 100 mg PO DAILY [facility] Last Admin: 05/11/19 09:17 Dose: 100 mg Furosemide (Lasix -) 20 mg PO DAILY [facility] Last Admin: 05/11/19 10:09 Dose: 20 mg Glipizide (Glucotrol -) 5 mg PO ACBK [facility]PL[facility] Last Admin: 05/11/19 06:34 Dose: 5 mg Insulin Aspart (Novolog Vial Sliding Scale -) 1 vial SQ [facility] REPLACED BY [facility]; Protocol Last Admin: 05/11/19 13:53 Dose: 6 units Insulin Aspart (Novolog Mix 70/30 Vial) 8 units SQ DAILY@0700 [facility] Last Admin: 05/11/19 06:33 Dose: 8 units Latanoprost (Xalatan 0.005% Eye Drops -) 1 drop OU HS [facility] Last Admin: 05/10/19 22:34 Dose: 1 drop Losartan Potassium (Cozaar -) 50 mg PO DAILY [facility] Last Admin: 05/11/19 10:09 Dose: 50 mg Methylprednisolone Sodium Succinate (Solu-Medrol -) 40 mg IVPUSH Q8H-IV [facility] Last Admin: 05/11/19 09:17 Dose: 40 mg Nystatin (Nystatin Oral Suspension -) 500,000 units PO Q6HPO [facility] Last Admin: 05/11/19 13:53 Dose: 500,000 units Pilocarpine HCl (Pilostat 2% -) 1 drop OU BID [facility] Last Admin: 05/11/19 09:19 Dose: 1 drop Timolol Maleate (Timoptic 0.5%) 1 drop OU DAILY [facility] Last Admin: 05/11/19 09:19 Dose: 1 drop A/P Acute on Chronic Hypoxic and Hypercapneic Respiratory Failure Acute COPD Exacerbation Pneumonia LV Diastolic Dysfunction DM PAD Smoker Lung Nodule - continue medrol - would start antibiotics - inhaled bronchodilators - O2 to keep Spo2 >90% - MONICA nodule suspcious appearing, will need PET scan and close f/u
--- NOTE | 2019-05-11 14:26 | ECHO ---
Name: PETRA KANDIS Exam:Adult Echocardiogram Study Date: 05/11/2019 12:47 PM Age: 83 yrs Reason For Study: lv function Height: 60 in Weight: 147 lb BSA: 1.6 m2 MMode/2D Measurements & Calculations IVSd: 1.1 cm Ao root diam: 2.5 cm LVIDd: 3.1 cm LVIDs: 2.4 cm LVPWd: 1.2 cm LVPWs: 0.91 cm EDV(Teich): 38.8 ml ESV(Teich): 19.7 ml LVOT diam: 1.9 cm LVLd ap4: 6.0 cm EDV(MOD-sp4): 33.8 ml LVLs ap4: 5.3 cm ESV(MOD-sp4): 15.9 ml SV(MOD-sp4): 17.9 ml LAV (MOD-bp): 44.8 ml TAPSE: 2.6 cm RV S Bolivar: 11.5 cm/sec Doppler Measurements & Calculations MV V2 max: 165.9 cm/sec MV E max bolivar: 85.7 cm/sec MV max P.0 mmHg MV A max bolivar: 147.5 cm/sec MV V2 mean: 85.4 cm/sec MV E/A: 0.58 MV mean P.6 mmHg MV dec time: 0.22 sec MV V2 VTI: 40.5 cm Ao V2 max: 157.8 cm/sec LV V1 max P.7 mmHg Ao max P.0 mmHg LV V1 max: 108.3 cm/sec DUY(V,D): 2.0 cm2 TR max bolivar: 313.7 cm/sec PA V2 max: 95.5 cm/sec TR max P.4 mmHg PA max P.7 mmHg Med Peak E' Bolivar: 4.2 cm/sec Med E/e': 20.2 Lat Peak E' Bolivar: 3.8 cm/sec Lat E/e': 22.5 Left Ventricle The left ventricle is normal in size. There is mild concentric left ventricular hypertrophy. The left ventricular ejection fraction is normal. Ejection Fraction = 60-65%. The transmitral spectral Doppler flow pattern is suggestive of impaired LV relaxation. Right Ventricle The right ventricle is not well visualized. The right ventricular systolic function is normal. Atria Normal left and right atrial size and function. Mitral Valve The mitral valve is grossly normal. There is no mitral regurgitation noted. Tricuspid Valve The tricuspid valve is not well visualized, but is grossly normal. There is mild to moderate tricuspi d regurgitation. Right ventricular systolic pressure is elevated at 40-50mmHg. Aortic Valve The aortic valve is normal in structure and function. Pulmonic Valve The pulmonic valve is not well seen, but is grossly normal. Trace to mild pulmonic valvular regurgita tion. Great Vessels The aortic root is not well visualized. Interpretation Summary LV; Normal size,mild LVH,normal systolic function, EF 60-65%,impaired relaxation RV: Normal Mild to moderate TR, mild pulmonary hypertension. Mary Linn 05/11/2019 02:25 PM
[2019-05-11] MEDS ORDERED: PT OWN MED DRAWER 7, Y5N ONE (21:18)
[2019-05-11] MEDS: LATANOPROST 0.005% OPHTH SOLN 2.5ML BOTTLE OU SCH (21:31)
[2019-05-12] MEDS: NYSTATIN 500,000 UNITS/5 ML SUSPENSION PO SCH ×4 (00:53→17:12)
[2019-05-12] MEDS: methylPREDNISolone NA SUCC 40 MG/1 ML VIAL IVPUSH SCH ×3 (01:25→17:12)
[2019-05-12] MEDS: glipiZIDE 5 MG TABLET (FP) PO SCH (06:51)
[2019-05-12] MEDS: INSULIN (NOVOLOG MIX 70/30) 100 UNITS/ML MDV SQ SCH (06:52)
[2019-05-12] MEDS: INSULIN SLIDING SCALE (NOVOLOG) 1 VIAL SQ SCH ×4 (06:57→22:56)
[2019-05-12] MEDS: ACETAMINOPHEN WITH CODEINE 300MG/30MG TABLET PO PRN (08:02)
--- NOTE | 2019-05-12 09:23 | PN ---
Progress Note, Physician Chief Complaint: Still C/O SOB History of Present Illness: CT showed Lt upper lobe nodule 1 cm size which is new Also showed bi basal infiltrates Will srart on IV antibiotics - Current Medication List Current Medications: Active Medications Acetaminophen/Codeine Phosphate (Tylenol # 3 -) 1 tab PO Q8H PRN PRN Reason: PAIN LEVEL 6-10 Last Admin: 05/12/19 08:02 Dose: 1 tab Acetazolamide (Diamox -) 250 mg PO BID [facility] Last Admin: 05/11/19 21:23 Dose: 250 mg Albuterol Sulfate (Ventolin Hfa Inhaler -) 2 puff IH BID PRN PRN Reason: SHORTNESS OF BREATH Albuterol/Ipratropium (Duoneb -) 1 amp NEB Q6H PRN PRN Reason: SHORTNESS OF BREATH Last Admin: 05/11/19 10:27 Dose: 1 amp Alprazolam (Xanax -) 0.5 mg PO Q8H PRN PRN Reason: ANXIETY Last Admin: 05/11/19 09:17 Dose: 0.5 mg Amlodipine Besylate (Norvasc -) 10 mg PO DAILY [facility] Last Admin: 05/11/19 10:09 Dose: 10 mg Dorzolamide HCl (Trusopt 2%) 1 drop OU BID [facility] Last Admin: 05/11/19 21:31 Dose: 1 drp Famotidine (Pepcid -) 20 mg PO BID [facility] Last Admin: 05/11/19 21:30 Dose: 20 mg Fluconazole (Diflucan -) 100 mg PO DAILY [facility] Last Admin: 05/11/19 09:17 Dose: 100 mg Furosemide (Lasix -) 20 mg PO DAILY [facility] Last Admin: 05/11/19 10:09 Dose: 20 mg Glipizide (Glucotrol -) 5 mg PO ACBK [facility] Last Admin: 05/12/19 06:51 Dose: 5 mg Insulin Aspart (Novolog Vial Sliding Scale -) 1 vial SQ [facility]; Protocol Last Admin: 05/12/19 06:57 Dose: 6 units Insulin Aspart (Novolog Mix 70/30 Vial) 8 units SQ DAILY@0700 [facility] Last Admin: 05/12/19 06:52 Dose: 8 units Latanoprost (Xalatan 0.005% Eye Drops -) 1 drop OU HS [facility] Last Admin: 05/11/19 21:31 Dose: 1 drop Losartan Potassium (Cozaar -) 50 mg PO DAILY [facility] Last Admin: 05/11/19 10:09 Dose: 50 mg Methylprednisolone Sodium Succinate (Solu-Medrol -) 40 mg IVPUSH Q8H-IV [facility] Last Admin: 05/12/19 01:25 Dose: 40 mg Nystatin (Nystatin Oral Suspension -) 500,000 units PO Q6HPO [facility] Last Admin: 05/12/19 06:51 Dose: 500,000 units Pilocarpine HCl (Pilostat 2% -) 1 drop OU BID [facility] Last Admin: 05/11/19 21:31 Dose: 1 drop Timolol Maleate (Timoptic 0.5%) 1 drop OU DAILY [facility] Last Admin: 05/11/19 09:19 Dose: 1 drop - Objective Vital Signs: Vital Signs Temperature 97.5 F L 05/12/19 08:06 Pulse Rate 95 H 05/12/19 08:06 Respiratory Rate 18 05/12/19 08:06 Blood Pressure 117/60 05/12/19 08:06 O2 Sat by Pulse Oximetry (%) 98 05/12/19 00:17 Constitutional: Yes: Anxious Eyes: Yes: WNL HENT: Yes: WNL Neck: Yes: WNL Cardiovascular: Yes: WNL Respiratory: Yes: On Nasal O2 Gastrointestinal: Yes: WNL ...Rectal Exam: Yes: Deferred Genitourinary: Yes: WNL Breast(s): Yes: WNL Musculoskeletal: Yes: Muscle Weakness Edema: No Neurological: Yes: Alert Labs: CBC, BMP 05/10/19 06:40 05/11/19 06:10 - ....Imaging Cat Scan: Report Reviewed Assessment/Plan Start on Unasyn
[2019-05-12] MEDS ORDERED: AMPICILLIN NA/SULBACTAM NA 1.5 GM VIAL ONE ×3 (10:29→22:39)
[2019-05-12] MEDS ORDERED: SODIUM CHLORIDE 100 ML IVPB ONE ×3 (10:29→22:39)
[2019-05-12] MEDS ORDERED: AMPICILLIN NA/SULBACTAM NA 1.5 GM in SODIUM CHLORIDE 100 ML IVPB SCH (10:30)
[2019-05-12] MEDS: TIMOLOL 0.5% OPHTHALMIC SOL 5 ML BOTTLE OU SCH (10:50)
[2019-05-12] MEDS: amLODIPine BESYLATE 10 MG TABLET (FP) PO SCH (10:50)
[2019-05-12] MEDS: FLUCONAZOLE 100 MG TABLET (UD) PO SCH (10:50)
[2019-05-12] MEDS: FUROSEMIDE 20 MG TABLET (FP) PO SCH (10:50)
[2019-05-12] MEDS: DORZOLAMIDE 2% HCL OPHTHALMIC SOLUTION 10 ML BOTTLE OU SCH ×2 (10:50→22:56)
[2019-05-12] MEDS: PILOCARPINE 2% OPHTHALMIC SOLUTION 15 ML BOTTLE OU SCH ×2 (10:50→22:56)
[2019-05-12] MEDS: acetaZOLAMIDE 250 MG TABLET PO SCH (10:50)
[2019-05-12] MEDS: LOSARTAN POTASSIUM 50 MG TABLET (FP) PO SCH (10:50)
[2019-05-12] MEDS: FAMOTIDINE 20 MG TABLET PO SCH ×2 (10:50→22:56)
--- NOTE | 2019-05-12 11:05 | PN ---
Progress Note, Physician History of Present Illness: pulmonary alert,feeling better,less sob - Current Medication List Current Medications: Active Medications Acetaminophen/Codeine Phosphate (Tylenol # 3 -) 1 tab PO Q8H PRN PRN Reason: PAIN LEVEL 6-10 Last Admin: 05/12/19 08:02 Dose: 1 tab Acetazolamide (Diamox -) 250 mg PO BID [facility] Last Admin: 05/11/19 21:23 Dose: 250 mg Albuterol Sulfate (Ventolin Hfa Inhaler -) 2 puff IH BID PRN PRN Reason: SHORTNESS OF BREATH Albuterol/Ipratropium (Duoneb -) 1 amp NEB Q6H PRN PRN Reason: SHORTNESS OF BREATH Last Admin: 05/11/19 10:27 Dose: 1 amp Alprazolam (Xanax -) 0.5 mg PO Q8H PRN PRN Reason: ANXIETY Last Admin: 05/11/19 09:17 Dose: 0.5 mg Amlodipine Besylate (Norvasc -) 10 mg PO DAILY [facility] Last Admin: 05/11/19 10:09 Dose: 10 mg Dorzolamide HCl (Trusopt 2%) 1 drop OU BID [facility] Last Admin: 05/11/19 21:31 Dose: 1 drp Famotidine (Pepcid -) 20 mg PO BID [facility] Last Admin: 05/11/19 21:30 Dose: 20 mg Fluconazole (Diflucan -) 100 mg PO DAILY [facility] Last Admin: 05/11/19 09:17 Dose: 100 mg Furosemide (Lasix -) 20 mg PO DAILY [facility] Last Admin: 05/11/19 10:09 Dose: 20 mg Glipizide (Glucotrol -) 5 mg PO ACBK [facility] Last Admin: 05/12/19 06:51 Dose: 5 mg Ampicillin Sodium/Sulbactam (Sodium 1.5 gm/ Sodium Chloride) 100 mls @ 200 mls/ hr IVPB BID [facility] Insulin Aspart (Novolog Vial Sliding Scale -) 1 vial SQ [facility]; Protocol Last Admin: 05/12/19 06:57 Dose: 6 units Insulin Aspart (Novolog Mix 70/30 Vial) 8 units SQ DAILY@0700 [facility] Last Admin: 05/12/19 06:52 Dose: 8 units Latanoprost (Xalatan 0.005% Eye Drops -) 1 drop OU HS [facility] Last Admin: 05/11/19 21:31 Dose: 1 drop Losartan Potassium (Cozaar -) 50 mg PO DAILY [facility] Last Admin: 05/11/19 10:09 Dose: 50 mg Methylprednisolone Sodium Succinate (Solu-Medrol -) 40 mg IVPUSH Q8H-IV [facility] Last Admin: 05/12/19 01:25 Dose: 40 mg Nystatin (Nystatin Oral Suspension -) 500,000 units PO Q6HPO [facility] Last Admin: 05/12/19 06:51 Dose: 500,000 units Pilocarpine HCl (Pilostat 2% -) 1 drop OU BID [facility] Last Admin: 05/11/19 21:31 Dose: 1 drop Timolol Maleate (Timoptic 0.5%) 1 drop OU DAILY [facility] Last Admin: 05/11/19 09:19 Dose: 1 drop - Objective Vital Signs: Vital Signs Temperature 97.5 F L 05/12/19 08:06 Pulse Rate 95 H 05/12/19 08:06 Respiratory Rate 18 05/12/19 08:06 Blood Pressure 117/60 05/12/19 08:06 O2 Sat by Pulse Oximetry (%) 98 05/12/19 00:17 Constitutional: Yes: Calm, Thin Eyes: Yes: WNL HENT: Yes: WNL Neck: Yes: WNL Cardiovascular: Yes: Regular Rate and Rhythm, S1, S2 Respiratory: Yes: Rales (bibasailr rales) Gastrointestinal: Yes: Normal Bowel Sounds, Soft Extremities: Yes: WNL Edema: No Labs: CBC, BMP - ....Imaging Cat Scan: Report Reviewed, Image Reviewed Problem List - Problems (1) Acute on chronic respiratory failure with hypoxia and hypercapnia Code(s): J96.21 - ACUTE AND CHRONIC RESPIRATORY FAILURE WITH HYPOXIA; J96.22 - ACUTE AND CHRONIC RESPIRATORY FAILURE WITH HYPERCAPNIA (2) Acute respiratory failure Code(s): J96.00 - ACUTE RESPIRATORY FAILURE, UNSP W HYPOXIA OR HYPERCAPNIA Qualifiers: Respiratory failure complication: hypoxia Qualified Code(s): J96.01 - Acute respiratory failure with hypoxia (3) T2DM (type 2 diabetes mellitus) Code(s): E11.9 - TYPE 2 DIABETES MELLITUS WITHOUT COMPLICATIONS (4) CHF (congestive heart failure) Code(s): I50.9 - HEART FAILURE, UNSPECIFIED (5) H/O: HTN (hypertension) Code(s): Z86.79 - PERSONAL HISTORY OF OTHER DISEASES OF THE CIRCULATORY SYSTEM (6) SOB (shortness of breath) Code(s): R06.02 - SHORTNESS OF BREATH (7) Acute on chronic systolic CHF (congestive heart failure) Code(s): I50.23 - ACUTE ON CHRONIC SYSTOLIC (CONGESTIVE) HEART FAILURE (8) Tobacco abuse Code(s): Z72.0 - TOBACCO USE (9) Encounter for smoking cessation counseling Code(s): Z71.6 - TOBACCO ABUSE COUNSELING; Z72.0 - TOBACCO USE Assessment/Plan IMP LIKELY ACUTE ON CHRONIC HYPOXEMIC/HYPERCAPNEIC RESPIRATORY FAILURE COPD EXACERBATION IMPROVING ACUTE ON CHRONIC CHF DM PVD TOBACCO ABUSE MONICA NODULE SUSPICIOUS FOR MALIGNANCY PLAN INHALED BRONCHODILATORS SUPPLEMENTAL O2 ABX NIPPV NEEDED MEDROL LASIX PET SCAN OUTPATIENT DAILY WTS SMOKING CESSATION COUNSELED DR DEVRIES Problem List - Problems (1) Acute on chronic respiratory failure with hypoxia and hypercapnia Code(s): J96.21 - ACUTE AND CHRONIC RESPIRATORY FAILURE WITH HYPOXIA; J96.22 - ACUTE AND CHRONIC RESPIRATORY FAILURE WITH HYPERCAPNIA (2) Acute respiratory failure Code(s): J96.00 - ACUTE RESPIRATORY FAILURE, UNSP W HYPOXIA OR HYPERCAPNIA Qualifiers: Respiratory failure complication: hypoxia Qualified Code(s): J96.01 - Acute respiratory failure with hypoxia (3) T2DM (type 2 diabetes mellitus) Code(s): E11.9 - TYPE 2 DIABETES MELLITUS WITHOUT COMPLICATIONS (4) CHF (congestive heart failure) Code(s): I50.9 - HEART FAILURE, UNSPECIFIED (5) H/O: HTN (hypertension) Code(s): Z86.79 - PERSONAL HISTORY OF OTHER DISEASES OF THE CIRCULATORY SYSTEM (6) SOB (shortness of breath) Code(s): R06.02 - SHORTNESS OF BREATH (7) Acute on chronic systolic CHF (congestive heart failure) Code(s): I50.23 - ACUTE ON CHRONIC SYSTOLIC (CONGESTIVE) HEART FAILURE (8) Tobacco abuse Code(s): Z72.0 - TOBACCO USE (9) Encounter for smoking cessation counseling Code(s): Z71.6 - TOBACCO ABUSE COUNSELING; Z72.0 - TOBACCO USE
[2019-05-12] MEDS ORDERED: INSULIN SLIDING SCALE (NOVOLOG) 1 VIAL SQ ONE (11:28)
--- NOTE | 2019-05-12 11:41 | PN ---
Progress Note, Physician - Current Medication List Current Medications: Active Medications Acetaminophen/Codeine Phosphate (Tylenol # 3 -) 1 tab PO Q8H PRN PRN Reason: PAIN LEVEL 6-10 Last Admin: 05/12/19 08:02 Dose: 1 tab Acetazolamide (Diamox -) 250 mg PO BID [facility] Last Admin: 05/12/19 10:50 Dose: 250 mg Albuterol Sulfate (Ventolin Hfa Inhaler -) 2 puff IH BID PRN PRN Reason: SHORTNESS OF BREATH Albuterol/Ipratropium (Duoneb -) 1 amp NEB Q6H PRN PRN Reason: SHORTNESS OF BREATH Last Admin: 05/11/19 10:27 Dose: 1 amp Alprazolam (Xanax -) 0.5 mg PO Q8H PRN PRN Reason: ANXIETY Last Admin: 05/11/19 09:17 Dose: 0.5 mg Amlodipine Besylate (Norvasc -) 10 mg PO DAILY [facility] Last Admin: 05/12/19 10:50 Dose: 10 mg Dorzolamide HCl (Trusopt 2%) 1 drop OU BID [facility] Last Admin: 05/12/19 10:50 Dose: 1 drp Famotidine (Pepcid -) 20 mg PO BID [facility] Last Admin: 05/12/19 10:50 Dose: 20 mg Fluconazole (Diflucan -) 100 mg PO DAILY [facility] Last Admin: 05/12/19 10:50 Dose: 100 mg Furosemide (Lasix -) 20 mg PO DAILY [facility] Last Admin: 05/12/19 10:50 Dose: 20 mg Glipizide (Glucotrol -) 5 mg PO ACBK [facility] Last Admin: 05/12/19 06:51 Dose: 5 mg Ampicillin Sodium/Sulbactam (Sodium 1.5 gm/ Sodium Chloride) 100 mls @ 200 mls/ hr IVPB BID [facility] Insulin Aspart (Novolog Vial Sliding Scale -) 1 vial SQ ACHS [facility]; Protocol Last Admin: 05/12/19 06:57 Dose: 6 units Insulin Aspart (Novolog Mix 70/30 Vial) 8 units SQ DAILY@0700 [facility] Last Admin: 05/12/19 06:52 Dose: 8 units Latanoprost (Xalatan 0.005% Eye Drops -) 1 drop OU HS [facility] Last Admin: 05/11/19 21:31 Dose: 1 drop Losartan Potassium (Cozaar -) 50 mg PO DAILY [facility] Last Admin: 05/12/19 10:50 Dose: 50 mg Methylprednisolone Sodium Succinate (Solu-Medrol -) 40 mg IVPUSH Q8H-IV [facility] Last Admin: 05/12/19 10:50 Dose: 40 mg Nystatin (Nystatin Oral Suspension -) 500,000 units PO Q6HPO [facility] Last Admin: 05/12/19 06:51 Dose: 500,000 units Pilocarpine HCl (Pilostat 2% -) 1 drop OU BID [facility] Last Admin: 05/12/19 10:50 Dose: 1 drop Polyethylene Glycol (Miralax (For Daily Use) -) 17 gm PO BID [facility] Timolol Maleate (Timoptic 0.5%) 1 drop OU DAILY [facility] Last Admin: 05/12/19 10:50 Dose: 1 drop - Objective Vital Signs: Vital Signs Temperature 97.5 F L 05/12/19 08:06 Pulse Rate 95 H 05/12/19 08:06 Respiratory Rate 18 05/12/19 08:06 Blood Pressure 117/60 05/12/19 08:06 O2 Sat by Pulse Oximetry (%) 98 05/12/19 00:17 Labs: CBC, BMP 05/10/19 06:40 Problem List - Problems (1) Acute on chronic respiratory failure with hypoxia and hypercapnia Code(s): J96.21 - ACUTE AND CHRONIC RESPIRATORY FAILURE WITH HYPOXIA; J96.22 - ACUTE AND CHRONIC RESPIRATORY FAILURE WITH HYPERCAPNIA (2) Acute respiratory failure Code(s): J96.00 - ACUTE RESPIRATORY FAILURE, UNSP W HYPOXIA OR HYPERCAPNIA Qualifiers: Respiratory failure complication: hypoxia Qualified Code(s): J96.01 - Acute respiratory failure with hypoxia (3) T2DM (type 2 diabetes mellitus) Code(s): E11.9 - TYPE 2 DIABETES MELLITUS WITHOUT COMPLICATIONS (4) CHF (congestive heart failure) Code(s): I50.9 - HEART FAILURE, UNSPECIFIED (5) H/O: HTN (hypertension) Code(s): Z86.79 - PERSONAL HISTORY OF OTHER DISEASES OF THE CIRCULATORY SYSTEM (6) SOB (shortness of breath) Code(s): R06.02 - SHORTNESS OF BREATH (7) Acute on chronic systolic CHF (congestive heart failure) Code(s): I50.23 - ACUTE ON CHRONIC SYSTOLIC (CONGESTIVE) HEART FAILURE (8) Tobacco abuse Code(s): Z72.0 - TOBACCO USE (9) Encounter for smoking cessation counseling Code(s): Z71.6 - TOBACCO ABUSE COUNSELING; Z72.0 - TOBACCO USE Assessment/Plan IMP LIKELY ACUTE ON CHRONIC HYPOXEMIC/HYPERCAPNEIC RESPIRATORY FAILURE COPD EXACERBATION IMPROVING ACUTE ON CHRONIC CHF DM PVD TOBACCO ABUSE MONICA NODULE SUSPICIOUS FOR MALIGNANCY PLAN INHALED BRONCHODILATORS SUPPLEMENTAL O2 ABX NIPPV NEEDED MEDROL LASIX PET SCAN OUTPATIENT DAILY WTS SMOKING CESSATION COUNSELED DR DEVRIES Problem List - Problems (1) Acute on chronic respiratory failure with hypoxia and hypercapnia Code(s): J96.21 - ACUTE AND CHRONIC RESPIRATORY FAILURE WITH HYPOXIA; J96.22 - ACUTE AND CHRONIC RESPIRATORY FAILURE WITH HYPERCAPNIA (2) Acute respiratory failure Code(s): J96.00 - ACUTE RESPIRATORY FAILURE, UNSP W HYPOXIA OR HYPERCAPNIA Qualifiers: Respiratory failure complication: hypoxia Qualified Code(s): J96.01 - Acute respiratory failure with hypoxia (3) T2DM (type 2 diabetes mellitus) Code(s): E11.9 - TYPE 2 DIABETES MELLITUS WITHOUT COMPLICATIONS (4) CHF (congestive heart failure) Code(s): I50.9 - HEART FAILURE, UNSPECIFIED (5) H/O: HTN (hypertension) Code(s): Z86.79 - PERSONAL HISTORY OF OTHER DISEASES OF THE CIRCULATORY SYSTEM (6) SOB (shortness of breath) Code(s): R06.02 - SHORTNESS OF BREATH (7) Acute on chronic systolic CHF (congestive heart failure) Code(s): I50.23 - ACUTE ON CHRONIC SYSTOLIC (CONGESTIVE) HEART FAILURE (8) Tobacco abuse Code(s): Z72.0 - TOBACCO USE (9) Encounter for smoking cessation counseling Code(s): Z71.6 - TOBACCO ABUSE COUNSELING; Z72.0 - TOBACCO USE
--- NOTE | 2019-05-12 11:42 | PN ---
Progress Note (short form) - Note Progress Note: 83-year-old female with long-standing history of COPD was admitted with progressive dyspnea severe orthopnea and dyspneaon minimal exertion.. Long- standing history of insulin-dependent diabetes mellitus, congestive heart failure, peripheral arterial disease, tobacco abuse. patient is alert, no SOB reported or chest pain reported. breathing has improved Active Medications Acetaminophen/Codeine Phosphate (Tylenol # 3 -) 1 tab PO Q8H PRN PRN Reason: PAIN LEVEL 6-10 Last Admin: 05/12/19 08:02 Dose: 1 tab Acetazolamide (Diamox -) 250 mg PO BID [facility] Last Admin: 05/12/19 10:50 Dose: 250 mg Albuterol Sulfate (Ventolin Hfa Inhaler -) 2 puff IH BID PRN PRN Reason: SHORTNESS OF BREATH Albuterol/Ipratropium (Duoneb -) 1 amp NEB Q6H PRN PRN Reason: SHORTNESS OF BREATH Last Admin: 05/11/19 10:27 Dose: 1 amp Alprazolam (Xanax -) 0.5 mg PO Q8H PRN PRN Reason: ANXIETY Last Admin: 05/11/19 09:17 Dose: 0.5 mg Amlodipine Besylate (Norvasc -) 10 mg PO DAILY [facility] Last Admin: 05/12/19 10:50 Dose: 10 mg Dorzolamide HCl (Trusopt 2%) 1 drop OU BID [facility] Last Admin: 05/12/19 10:50 Dose: 1 drp Famotidine (Pepcid -) 20 mg PO BID [facility] Last Admin: 05/12/19 10:50 Dose: 20 mg Fluconazole (Diflucan -) 100 mg PO DAILY [facility] Last Admin: 05/12/19 10:50 Dose: 100 mg Furosemide (Lasix -) 20 mg PO DAILY [facility] Last Admin: 05/12/19 10:50 Dose: 20 mg Glipizide (Glucotrol -) 5 mg PO ACBK [facility] Last Admin: 05/12/19 06:51 Dose: 5 mg Ampicillin Sodium/Sulbactam (Sodium 1.5 gm/ Sodium Chloride) 100 mls @ 200 mls/ hr IVPB BID [facility] Insulin Aspart (Novolog Vial Sliding Scale -) 1 vial SQ ACHS [facility]; Protocol Last Admin: 05/12/19 06:57 Dose: 6 units Insulin Aspart (Novolog Mix 70/30 Vial) 8 units SQ DAILY@0700 [facility] Last Admin: 05/12/19 06:52 Dose: 8 units Latanoprost (Xalatan 0.005% Eye Drops -) 1 drop OU HS [facility] Last Admin: 05/11/19 21:31 Dose: 1 drop Losartan Potassium (Cozaar -) 50 mg PO DAILY [facility] Last Admin: 05/12/19 10:50 Dose: 50 mg Methylprednisolone Sodium Succinate (Solu-Medrol -) 40 mg IVPUSH Q8H-IV [facility] Last Admin: 05/12/19 10:50 Dose: 40 mg Nystatin (Nystatin Oral Suspension -) 500,000 units PO Q6HPO [facility] Last Admin: 05/12/19 06:51 Dose: 500,000 units Pilocarpine HCl (Pilostat 2% -) 1 drop OU BID [facility] Last Admin: 05/12/19 10:50 Dose: 1 drop Polyethylene Glycol (Miralax (For Daily Use) -) 17 gm PO BID [facility] Timolol Maleate (Timoptic 0.5%) 1 drop OU DAILY [facility] Last Admin: 05/12/19 10:50 Dose: 1 drop Last Vital Signs Temp Pulse Resp BP Pulse Ox 97.5 F L 95 H 18 117/60 98 05/12/19 08:06 05/12/19 08:06 05/12/19 08:06 05/12/19 08:06 05/12/19 00:17 Neck:Supple, no jugular venous distention, -ve HJR , carotids 2+, no bruits hesrd. No thyromegaly. Heart: PMI in the fifth intercostal space, slight apical and left parasternal heave, heart sounds were distant, a grade 1/6 decrescendo systolic murmur heard along the left sternal border. No diastolic murmur or gallops were heard. Lungs: Bibasilar creps more pronounced on the left base.scattered expiratory wheezing. Abdomen: Soft, nontender, no hepatosplenomegaly or palpable masses were appreciated. Small reducible umbilical hernia Extremities: No calf tenderness, 1-2+ left lower extremity edema. left lower extremity was cool and dorsalis pedis pulses and posterior tibial pulses were absent. Right lower extremity dorsalis pedis pulse was palpable, posterior tibial could not be palpated. Bilateral femoral pulses were 2+. CBC, BMP 05/10/19 06:40 Impression: 1. Asthmatic bronchitis, LLL pneumonia needs exclusion. 2. COPD 3. Congestive heart failure. 4. Insulin-dependent diabetes, 5. Tobacco abuse. 6. Oral thrush. Recommendations: 1. Continue current cardiac medications. 2. F/u X-Ray. 3. BMP and CBC. Prognosis: guarded. Raul Aguilar MD; FACC
[2019-05-12 11:44] LABS: BLOOD UREA NITROGEN 44.1 mg/dL (7-18); CALCIUM 9.2 mg/dL (8.5-10.1); CREATININE 1.2 mg/dL (0.55-1.3); POTASSIUM 3.3 mmol/L (3.5-5.1)
[2019-05-12] MEDS: AMPICILLIN NA/SULBACTAM NA 1.5 GM in SODIUM CHLORIDE 100 ML IVPB SCH ×2 (11:55→22:57)
[2019-05-12 14:33] VITALS: BMI 20.5
[2019-05-12] MEDS: ALPRAZolam 0.25 MG TABLET PO PRN (14:33)
[2019-05-12] MEDS ORDERED: ACETAMINOPHEN WITH CODEINE 300MG/30MG TABLET PO PRN (18:29)
[2019-05-12] MEDS ORDERED: ALPRAZolam 0.25 MG TABLET PO PRN (18:30)
[2019-05-12] MEDS ORDERED: PT OWN MED DRAWER 7, Y5N ONE (22:39)
[2019-05-12] MEDS: POLYETHYLENE GLYCOL 3350 119 GM BTL PO SCH (22:55)
[2019-05-12] MEDS: LATANOPROST 0.005% OPHTH SOLN 2.5ML BOTTLE OU SCH (22:57)
[2019-05-13] MEDS: acetaZOLAMIDE 250 MG TABLET PO SCH ×3 (00:07→21:17)
[2019-05-13] MEDS: NYSTATIN 500,000 UNITS/5 ML SUSPENSION PO SCH ×5 (00:08→23:25)
[2019-05-13] MEDS: methylPREDNISolone NA SUCC 40 MG/1 ML VIAL IVPUSH SCH ×3 (01:46→17:03)
[2019-05-13] MEDS: INSULIN (NOVOLOG MIX 70/30) 100 UNITS/ML MDV SQ SCH (06:34)
[2019-05-13] MEDS: glipiZIDE 5 MG TABLET (FP) PO SCH (06:34)
[2019-05-13] MEDS: INSULIN SLIDING SCALE (NOVOLOG) 1 VIAL SQ SCH ×4 (06:34→21:17)
[2019-05-13] MEDS ORDERED: AMPICILLIN NA/SULBACTAM NA 1.5 GM VIAL ONE ×2 (09:10→21:02)
[2019-05-13] MEDS ORDERED: SODIUM CHLORIDE 100 ML IVPB ONE ×2 (09:10→21:02)
[2019-05-13] MEDS: AMPICILLIN NA/SULBACTAM NA 1.5 GM in SODIUM CHLORIDE 100 ML IVPB SCH ×3 (09:35→21:19)
[2019-05-13] MEDS: amLODIPine BESYLATE 10 MG TABLET (FP) PO SCH (09:36)
--- NOTE | 2019-05-13 09:36 | PN ---
Progress Note, Physician Chief Complaint: Feels better History of Present Illness: Admitted with CHF and exacerbation of COPD - Current Medication List Current Medications: Active Medications Acetaminophen/Codeine Phosphate (Tylenol # 3 -) 1 tab PO Q8H PRN PRN Reason: PAIN LEVEL 6-10 Acetazolamide (Diamox -) 250 mg PO BID [facility] Last Admin: 05/13/19 00:07 Dose: 250 mg Albuterol Sulfate (Ventolin Hfa Inhaler -) 2 puff IH BID PRN PRN Reason: SHORTNESS OF BREATH Albuterol/Ipratropium (Duoneb -) 1 amp NEB Q6H PRN PRN Reason: SHORTNESS OF BREATH Last Admin: 05/11/19 10:27 Dose: 1 amp Alprazolam (Xanax -) 0.5 mg PO Q8H PRN PRN Reason: ANXIETY Amlodipine Besylate (Norvasc -) 10 mg PO DAILY [facility] Last Admin: 05/12/19 10:50 Dose: 10 mg Dorzolamide HCl (Trusopt 2%) 1 drop OU BID [facility] Last Admin: 05/12/19 22:56 Dose: 1 drp Famotidine (Pepcid -) 20 mg PO BID [facility] Last Admin: 05/12/19 22:56 Dose: 20 mg Furosemide (Lasix -) 20 mg PO DAILY [facility] Last Admin: 05/12/19 10:50 Dose: 20 mg Glipizide (Glucotrol -) 5 mg PO ACBK [facility] Last Admin: 05/13/19 06:34 Dose: 5 mg Ampicillin Sodium/Sulbactam (Sodium 1.5 gm/ Sodium Chloride) 100 mls @ 200 mls/ hr IVPB BID [facility] Last Admin: 05/12/19 22:57 Dose: 200 mls/hr Insulin Aspart (Novolog Vial Sliding Scale -) 1 vial SQ ACHS [facility]; Protocol Last Admin: 05/13/19 06:34 Dose: 4 units Insulin Aspart (Novolog Mix 70/30 Vial) 8 units SQ DAILY@0700 [facility] Last Admin: 05/13/19 06:34 Dose: 8 units Latanoprost (Xalatan 0.005% Eye Drops -) 1 drop OU HS [facility] Last Admin: 05/12/19 22:57 Dose: 1 drop Losartan Potassium (Cozaar -) 50 mg PO DAILY [facility] Last Admin: 05/12/19 10:50 Dose: 50 mg Methylprednisolone Sodium Succinate (Solu-Medrol -) 40 mg IVPUSH Q8H-IV [facility] Last Admin: 05/13/19 01:46 Dose: 40 mg Nystatin (Nystatin Oral Suspension -) 500,000 units PO Q6HPO [facility] Last Admin: 05/13/19 06:34 Dose: 500,000 units Pilocarpine HCl (Pilostat 2% -) 1 drop OU BID [facility] Last Admin: 05/12/19 22:56 Dose: 1 drop Polyethylene Glycol (Miralax (For Daily Use) -) 17 gm PO BID [facility] Last Admin: 05/12/19 22:55 Dose: 17 gm Timolol Maleate (Timoptic 0.5%) 1 drop OU DAILY [facility] Last Admin: 05/12/19 10:50 Dose: 1 drop - Objective Vital Signs: Vital Signs Temperature 98.8 F 05/13/19 08:38 Pulse Rate 99 H 05/13/19 08:38 Respiratory Rate 18 05/13/19 08:38 Blood Pressure 135/67 05/13/19 08:38 O2 Sat by Pulse Oximetry (%) 98 05/13/19 07:59 Constitutional: Yes: Calm Eyes: Yes: WNL HENT: Yes: WNL Neck: Yes: WNL Cardiovascular: Yes: Regular Rate and Rhythm Respiratory: Yes: On Nasal O2 Gastrointestinal: Yes: Normal Bowel Sounds ...Rectal Exam: Yes: Deferred Genitourinary: Yes: WNL Musculoskeletal: Yes: Muscle Weakness Neurological: Yes: Alert Labs: CBC, BMP 05/10/19 06:40 05/12/19 10:40 Assessment/Plan KCL supplements SNF placements
[2019-05-13] MEDS: LOSARTAN POTASSIUM 50 MG TABLET (FP) PO SCH (09:37)
[2019-05-13] MEDS: FAMOTIDINE 20 MG TABLET PO SCH ×2 (09:37→21:17)
[2019-05-13] MEDS: FUROSEMIDE 20 MG TABLET (FP) PO SCH (09:37)
[2019-05-13] MEDS: POLYETHYLENE GLYCOL 3350 119 GM BTL PO SCH ×2 (09:39→21:17)
[2019-05-13] MEDS: PILOCARPINE 2% OPHTHALMIC SOLUTION 15 ML BOTTLE OU SCH ×2 (09:40→21:18)
[2019-05-13] MEDS: DORZOLAMIDE 2% HCL OPHTHALMIC SOLUTION 10 ML BOTTLE OU SCH ×2 (09:41→21:18)
[2019-05-13] MEDS: TIMOLOL 0.5% OPHTHALMIC SOL 5 ML BOTTLE OU SCH (09:41)
--- NOTE | 2019-05-13 11:11 | PN ---
Progress Note, Physician History of Present Illness: pulmonary still dyspneic,more confused - Current Medication List Current Medications: Active Medications Acetaminophen/Codeine Phosphate (Tylenol # 3 -) 1 tab PO Q8H PRN PRN Reason: PAIN LEVEL 6-10 Acetazolamide (Diamox -) 250 mg PO BID [facility] Last Admin: 05/13/19 09:38 Dose: 250 mg Albuterol Sulfate (Ventolin Hfa Inhaler -) 2 puff IH BID PRN PRN Reason: SHORTNESS OF BREATH Albuterol/Ipratropium (Duoneb -) 1 amp NEB Q6H PRN PRN Reason: SHORTNESS OF BREATH Last Admin: 05/11/19 10:27 Dose: 1 amp Alprazolam (Xanax -) 0.5 mg PO Q8H PRN PRN Reason: ANXIETY Amlodipine Besylate (Norvasc -) 10 mg PO DAILY [facility] Last Admin: 05/13/19 09:36 Dose: 10 mg Dorzolamide HCl (Trusopt 2%) 1 drop OU BID [facility] Last Admin: 05/13/19 09:41 Dose: 1 drp Famotidine (Pepcid -) 20 mg PO BID [facility] Last Admin: 05/13/19 09:37 Dose: 20 mg Furosemide (Lasix -) 20 mg PO DAILY [facility] Last Admin: 05/13/19 09:37 Dose: 20 mg Glipizide (Glucotrol -) 5 mg PO ACBK [facility] Last Admin: 05/13/19 06:34 Dose: 5 mg Ampicillin Sodium/Sulbactam (Sodium 1.5 gm/ Sodium Chloride) 100 mls @ 200 mls/ hr IVPB BID [facility] Last Admin: 05/13/19 09:35 Dose: 200 mls/hr Insulin Aspart (Novolog Vial Sliding Scale -) 1 vial SQ ACHS [facility]; Protocol Last Admin: 05/13/19 06:34 Dose: 4 units Insulin Aspart (Novolog Mix 70/30 Vial) 8 units SQ DAILY@0700 [facility] Last Admin: 05/13/19 06:34 Dose: 8 units Latanoprost (Xalatan 0.005% Eye Drops -) 1 drop OU HS [facility] Last Admin: 05/12/19 22:57 Dose: 1 drop Losartan Potassium (Cozaar -) 50 mg PO DAILY [facility] Last Admin: 05/13/19 09:37 Dose: 50 mg Methylprednisolone Sodium Succinate (Solu-Medrol -) 40 mg IVPUSH Q8H-IV [facility] Last Admin: 05/13/19 09:36 Dose: 40 mg Nystatin (Nystatin Oral Suspension -) 500,000 units PO Q6HPO [facility] Last Admin: 05/13/19 06:34 Dose: 500,000 units Pilocarpine HCl (Pilostat 2% -) 1 drop OU BID [facility] Last Admin: 05/13/19 09:40 Dose: 1 drop Polyethylene Glycol (Miralax (For Daily Use) -) 17 gm PO BID [facility] Last Admin: 05/13/19 09:39 Dose: 17 gm Potassium Chloride (Potassium Chloride Oral Liquid) 20 meq PO BID [facility] Stop: 05/15/19 22:01 Timolol Maleate (Timoptic 0.5%) 1 drop OU DAILY [facility] Last Admin: 05/13/19 09:41 Dose: 1 drop - Objective Vital Signs: Vital Signs Temperature 98.8 F 05/13/19 08:38 Pulse Rate 99 H 05/13/19 08:38 Respiratory Rate 18 05/13/19 08:38 Blood Pressure 135/67 05/13/19 08:38 O2 Sat by Pulse Oximetry (%) 98 05/13/19 07:59 Constitutional: Yes: Calm, Thin, Other (confused) Eyes: Yes: WNL HENT: Yes: WNL Neck: Yes: WNL Cardiovascular: Yes: Regular Rate and Rhythm, S1, S2 Respiratory: Yes: Rales (bibasailr rales) Gastrointestinal: Yes: Normal Bowel Sounds, Soft Extremities: Yes: WNL Edema: No Labs: CBC, BMP Problem List - Problems (1) Acute on chronic respiratory failure with hypoxia and hypercapnia Code(s): J96.21 - ACUTE AND CHRONIC RESPIRATORY FAILURE WITH HYPOXIA; J96.22 - ACUTE AND CHRONIC RESPIRATORY FAILURE WITH HYPERCAPNIA (2) Acute respiratory failure Code(s): J96.00 - ACUTE RESPIRATORY FAILURE, UNSP W HYPOXIA OR HYPERCAPNIA Qualifiers: Respiratory failure complication: hypoxia Qualified Code(s): J96.01 - Acute respiratory failure with hypoxia (3) T2DM (type 2 diabetes mellitus) Code(s): E11.9 - TYPE 2 DIABETES MELLITUS WITHOUT COMPLICATIONS (4) CHF (congestive heart failure) Code(s): I50.9 - HEART FAILURE, UNSPECIFIED (5) H/O: HTN (hypertension) Code(s): Z86.79 - PERSONAL HISTORY OF OTHER DISEASES OF THE CIRCULATORY SYSTEM (6) SOB (shortness of breath) Code(s): R06.02 - SHORTNESS OF BREATH (7) Acute on chronic systolic CHF (congestive heart failure) Code(s): I50.23 - ACUTE ON CHRONIC SYSTOLIC (CONGESTIVE) HEART FAILURE (8) Tobacco abuse Code(s): Z72.0 - TOBACCO USE (9) Encounter for smoking cessation counseling Code(s): Z71.6 - TOBACCO ABUSE COUNSELING; Z72.0 - TOBACCO USE Assessment/Plan IMP LIKELY ACUTE ON CHRONIC HYPOXEMIC/HYPERCAPNEIC RESPIRATORY FAILURE COPD EXACERBATION IMPROVING ACUTE ON CHRONIC CHF DM PVD TOBACCO ABUSE MONICA NODULE SUSPICIOUS FOR MALIGNANCY PLAN INHALED BRONCHODILATORS SUPPLEMENTAL O2 ABX NIPPV NEEDED MEDROL LASIX PET SCAN OUTPATIENT DAILY WTS SMOKING CESSATION COUNSELED ABJesus DEVRIES Problem List - Problems (1) Acute on chronic respiratory failure with hypoxia and hypercapnia Code(s): J96.21 - ACUTE AND CHRONIC RESPIRATORY FAILURE WITH HYPOXIA; J96.22 - ACUTE AND CHRONIC RESPIRATORY FAILURE WITH HYPERCAPNIA (2) Acute respiratory failure Code(s): J96.00 - ACUTE RESPIRATORY FAILURE, UNSP W HYPOXIA OR HYPERCAPNIA Qualifiers: Respiratory failure complication: hypoxia Qualified Code(s): J96.01 - Acute respiratory failure with hypoxia (3) T2DM (type 2 diabetes mellitus) Code(s): E11.9 - TYPE 2 DIABETES MELLITUS WITHOUT COMPLICATIONS (4) CHF (congestive heart failure) Code(s): I50.9 - HEART FAILURE, UNSPECIFIED (5) H/O: HTN (hypertension) Code(s): Z86.79 - PERSONAL HISTORY OF OTHER DISEASES OF THE CIRCULATORY SYSTEM (6) SOB (shortness of breath) Code(s): R06.02 - SHORTNESS OF BREATH (7) Acute on chronic systolic CHF (congestive heart failure) Code(s): I50.23 - ACUTE ON CHRONIC SYSTOLIC (CONGESTIVE) HEART FAILURE (8) Tobacco abuse Code(s): Z72.0 - TOBACCO USE (9) Encounter for smoking cessation counseling Code(s): Z71.6 - TOBACCO ABUSE COUNSELING; Z72.0 - TOBACCO USE
[2019-05-13] MEDS: POTASSIUM CHLORIDE ORAL LIQUID 20 MEQ/15 ML PO SCH ×2 (11:19→21:17)
[2019-05-13 13:21] LABS: ARTERIAL BLD GAS O2 SATURATION 96.1 % (95-98); ARTERIAL BLOOD GAS BASE EXCESS -0.4 meq/l (-2-2); ARTERIAL BLOOD GAS PO2 115 mmHg (80-100); ARTERIAL BLOOD GAS pH 7.39 (7.35-7.45)
[2019-05-13 13:22] LABS: ALLENS TEST POSITIVE
--- NOTE | 2019-05-13 14:44 | PN ---
Progress Note (short form) - Note Progress Note: 83-year-old female with long-standing history of COPD was admitted with progressive dyspnea severe orthopnea and dyspneaon minimal exertion.. Long- standing history of insulin-dependent diabetes mellitus, congestive heart failure, peripheral arterial disease, tobacco abuse. Acute SOB of was off O2, improving O2 sat is normal. No chest pain Active Medications Acetaminophen/Codeine Phosphate (Tylenol # 3 -) 1 tab PO Q8H PRN PRN Reason: PAIN LEVEL 6-10 Acetazolamide (Diamox -) 250 mg PO BID [facility] Last Admin: 05/13/19 09:38 Dose: 250 mg Albuterol Sulfate (Ventolin Hfa Inhaler -) 2 puff IH BID PRN PRN Reason: SHORTNESS OF BREATH Albuterol/Ipratropium (Duoneb -) 1 amp NEB Q6H PRN PRN Reason: SHORTNESS OF BREATH Last Admin: 05/11/19 10:27 Dose: 1 amp Alprazolam (Xanax -) 0.5 mg PO Q8H PRN PRN Reason: ANXIETY Last Admin: 05/13/19 12:42 Dose: 0.5 mg Amlodipine Besylate (Norvasc -) 10 mg PO DAILY [facility] Last Admin: 05/13/19 09:36 Dose: 10 mg Dorzolamide HCl (Trusopt 2%) 1 drop OU BID [facility] Last Admin: 05/13/19 09:41 Dose: 1 drp Famotidine (Pepcid -) 20 mg PO BID [facility] Last Admin: 05/13/19 09:37 Dose: 20 mg Furosemide (Lasix -) 20 mg PO DAILY [facility] Last Admin: 05/13/19 09:37 Dose: 20 mg Glipizide (Glucotrol -) 5 mg PO ACBK [facility] Last Admin: 05/13/19 06:34 Dose: 5 mg Ampicillin Sodium/Sulbactam (Sodium 1.5 gm/ Sodium Chloride) 100 mls @ 200 mls/ hr IVPB BID [facility] Last Admin: 05/13/19 12:25 Dose: 200 mls/hr Insulin Aspart (Novolog Vial Sliding Scale -) 1 vial SQ ACHS [facility]; Protocol Last Admin: 05/13/19 11:58 Dose: 8 units Insulin Aspart (Novolog Mix 70/30 Vial) 8 units SQ DAILY@0700 [facility] Last Admin: 05/13/19 06:34 Dose: 8 units Latanoprost (Xalatan 0.005% Eye Drops -) 1 drop OU HS [facility] Last Admin: 05/12/19 22:57 Dose: 1 drop Losartan Potassium (Cozaar -) 50 mg PO DAILY [facility] Last Admin: 05/13/19 09:37 Dose: 50 mg Methylprednisolone Sodium Succinate (Solu-Medrol -) 40 mg IVPUSH Q8H-IV [facility] Last Admin: 05/13/19 09:36 Dose: 40 mg Nystatin (Nystatin Oral Suspension -) 500,000 units PO Q6HPO [facility] Last Admin: 05/13/19 11:58 Dose: 500,000 units Pilocarpine HCl (Pilostat 2% -) 1 drop OU BID [facility] Last Admin: 05/13/19 09:40 Dose: 1 drop Polyethylene Glycol (Miralax (For Daily Use) -) 17 gm PO BID [facility] Last Admin: 05/13/19 09:39 Dose: 17 gm Potassium Chloride (Potassium Chloride Oral Liquid) 20 meq PO BID [facility] Stop: 05/15/19 22:01 Last Admin: 05/13/19 11:19 Dose: 20 meq Timolol Maleate (Timoptic 0.5%) 1 drop OU DAILY [facility] Last Admin: 05/13/19 09:41 Dose: 1 drop Last Vital Signs Temp Pulse Resp BP Pulse Ox 98.6 F 88 16 123/58 L 98 05/13/19 14:00 05/13/19 14:00 05/13/19 14:00 05/13/19 14:00 05/13/19 07:59 Neck:Supple, no jugular venous distention, -ve HJR , carotids 2+, no bruits hesrd. No thyromegaly. Heart: PMI in the fifth intercostal space, slight apical and left parasternal heave, heart sounds were distant, a grade 1/6 decrescendo systolic murmur heard along the left sternal border. No diastolic murmur or gallops were heard. Lungs: Bibasilar creps more pronounced on the left base.scattered expiratory wheezing. Abdomen: Soft, nontender, no hepatosplenomegaly or palpable masses were appreciated. Small reducible umbilical hernia Extremities: No calf tenderness, 1-2+ left lower extremity edema. left lower extremity was cool and dorsalis pedis pulses and posterior tibial pulses were absent. Right lower extremity dorsalis pedis pulse was palpable, posterior tibial could not be palpated. Bilateral femoral pulses were 2+. CBC, BMP 05/10/19 06:40 05/12/19 10:40 Impression: 1. Asthmatic bronchitis' 2. COPD with acute exacerbation. 3. Congestive heart failure, resolving. 4. Insulin-dependent diabetes. 5. Tobacco abuse. 6. Oral thrushResolving Recommendations: 1. Continue current cardiac medications. 2. F/u X-Ray. 3. F/u BMP and CBC. Prognosis: guarded. Raul Aguilar MD; FACC
[2019-05-13] MEDS ORDERED: PT OWN MED DRAWER 7, Y5N ONE (21:01)
[2019-05-13] MEDS: LATANOPROST 0.005% OPHTH SOLN 2.5ML BOTTLE OU SCH (21:19)
[2019-05-14] MEDS: methylPREDNISolone NA SUCC 40 MG/1 ML VIAL IVPUSH SCH ×2 (02:16→10:36)
[2019-05-14] MEDS: NYSTATIN 500,000 UNITS/5 ML SUSPENSION PO SCH (06:40)
[2019-05-14] MEDS: INSULIN SLIDING SCALE (NOVOLOG) 1 VIAL SQ SCH ×2 (06:41→11:51)
[2019-05-14] MEDS: INSULIN (NOVOLOG MIX 70/30) 100 UNITS/ML MDV SQ SCH (06:41)
[2019-05-14] MEDS: glipiZIDE 5 MG TABLET (FP) PO SCH (06:42)
[2019-05-14 07:51] VITALS: BP 136/67; PULSE 104; TEMP 98.8
[2019-05-14] MEDS ORDERED: SODIUM CHLORIDE 100 ML IVPB ONE (09:57)
[2019-05-14] MEDS ORDERED: AMPICILLIN NA/SULBACTAM NA 1.5 GM VIAL ONE (09:57)
--- NOTE | 2019-05-14 10:14 | PN ---
Progress Note (short form) - Note Progress Note: 83-year-old female with long-standing history of COPD was admitted with progressive dyspnea severe orthopnea and dyspneaon minimal exertion.. Long- standing history of insulin-dependent diabetes mellitus, congestive heart failure, peripheral arterial disease, tobacco abuse. patient is alert resting comfortably. No SOB reported or chest pain reported. CT chest reported to have mild to moderate COPD, and 1cm left upper lobes nodules have devolped and additional smaller since 04/20/16 suspicious for malignancy. Patchy bilateral lower lobe consolidation, left greater than right, acute pneumonia cannot be excluded. Being followed by PCP. Active Medications Acetaminophen/Codeine Phosphate (Tylenol # 3 -) 1 tab PO Q8H PRN PRN Reason: PAIN LEVEL 6-10 Acetazolamide (Diamox -) 250 mg PO BID [facility] Last Admin: 05/13/19 21:17 Dose: 250 mg Albuterol Sulfate (Ventolin Hfa Inhaler -) 2 puff IH BID PRN PRN Reason: SHORTNESS OF BREATH Albuterol/Ipratropium (Duoneb -) 1 amp NEB Q6H PRN PRN Reason: SHORTNESS OF BREATH Last Admin: 05/11/19 10:27 Dose: 1 amp Alprazolam (Xanax -) 0.5 mg PO Q8H PRN PRN Reason: ANXIETY Last Admin: 05/13/19 12:42 Dose: 0.5 mg Amlodipine Besylate (Norvasc -) 10 mg PO DAILY [facility] Last Admin: 05/13/19 09:36 Dose: 10 mg Dorzolamide HCl (Trusopt 2%) 1 drop OU BID [facility] Last Admin: 05/13/19 21:18 Dose: 1 drp Famotidine (Pepcid -) 20 mg PO BID [facility] Last Admin: 05/13/19 21:17 Dose: 20 mg Furosemide (Lasix -) 20 mg PO DAILY [facility] Last Admin: 05/13/19 09:37 Dose: 20 mg Glipizide (Glucotrol -) 5 mg PO ACBK [facility] Last Admin: 05/14/19 06:42 Dose: 5 mg Ampicillin Sodium/Sulbactam (Sodium 1.5 gm/ Sodium Chloride) 100 mls @ 200 mls/ hr IVPB BID [facility] Last Admin: 05/14/19 10:33 Dose: 200 mls/hr Insulin Aspart (Novolog Vial Sliding Scale -) 1 vial SQ ACHS [facility]; Protocol Last Admin: 05/14/19 06:41 Dose: 8 units Insulin Aspart (Novolog Mix 70/30 Vial) 8 units SQ DAILY@0700 [facility] Last Admin: 05/14/19 06:41 Dose: 8 units Latanoprost (Xalatan 0.005% Eye Drops -) 1 drop OU HS [facility] Last Admin: 05/13/19 21:19 Dose: 1 drop Losartan Potassium (Cozaar -) 50 mg PO DAILY [facility] Last Admin: 05/13/19 09:37 Dose: 50 mg Methylprednisolone Sodium Succinate (Solu-Medrol -) 40 mg IVPUSH Q8H-IV [facility] Last Admin: 05/14/19 02:16 Dose: 40 mg Nystatin (Nystatin Oral Suspension -) 500,000 units PO Q6HPO [facility] Last Admin: 05/14/19 06:40 Dose: 500,000 units Pilocarpine HCl (Pilostat 2% -) 1 drop OU BID [facility] Last Admin: 05/13/19 21:18 Dose: 1 drop Polyethylene Glycol (Miralax (For Daily Use) -) 17 gm PO BID [facility] Last Admin: 05/13/19 21:17 Dose: 17 gm Potassium Chloride (Potassium Chloride Oral Liquid) 20 meq PO BID [facility] Stop: 05/15/19 22:01 Last Admin: 05/13/19 21:17 Dose: 20 meq Timolol Maleate (Timoptic 0.5%) 1 drop OU DAILY [facility] Last Admin: 05/13/19 09:41 Dose: 1 drop Last Vital Signs Temp Pulse Resp BP Pulse Ox 98.8 F 104 H 18 136/67 100 05/14/19 07:51 05/14/19 07:51 05/14/19 07:51 05/14/19 07:51 05/13/19 21:00 Neck:Supple, no jugular venous distention, -ve HJR , carotids 2+, no bruits hesrd. No thyromegaly. Heart: PMI in the fifth intercostal space, slight apical and left parasternal heave, heart sounds were distant, a grade 1/6 decrescendo systolic murmur heard along the left sternal border. No diastolic murmur or gallops were heard. Lungs: Bibasilar creps more pronounced on the left base.scattered expiratory wheezing. Abdomen: Soft, nontender, no hepatosplenomegaly or palpable masses were appreciated. Small reducible umbilical hernia Extremities: No calf tenderness, 1-2+ left lower extremity edema. left lower extremity was cool and dorsalis pedis pulses and posterior tibial pulses were absent. Right lower extremity dorsalis pedis pulse was palpable, posterior tibial could not be palpated. Bilateral femoral pulses were 2+. CBC, BMP 05/10/19 06:40 Impression: 1. Asthmatic bronchitis, LLL pneumonia needs exclusion. 2. COPD 3. Congestive heart failure. 4. Insulin-dependent diabetes, 5. Tobacco abuse. 6. CT chest suspicious for malignancy and pneumonia Recommendations: 1. Continue current cardiac medications. 2. Continue current cardiac therapy. 3. F/U of chest xray finding. 4. Cessation of smoking. Prognosis: guarded. Raul Aguilar MD; FACC
[2019-05-14] MEDS: AMPICILLIN NA/SULBACTAM NA 1.5 GM in SODIUM CHLORIDE 100 ML IVPB SCH (10:33)
[2019-05-14] MEDS: POTASSIUM CHLORIDE ORAL LIQUID 20 MEQ/15 ML PO SCH (10:36)
[2019-05-14] MEDS: FUROSEMIDE 20 MG TABLET (FP) PO SCH (10:36)
[2019-05-14] MEDS: FAMOTIDINE 20 MG TABLET PO SCH (10:36)
[2019-05-14] MEDS: amLODIPine BESYLATE 10 MG TABLET (FP) PO SCH (10:36)
[2019-05-14] MEDS: LOSARTAN POTASSIUM 50 MG TABLET (FP) PO SCH (10:37)
[2019-05-14] MEDS: acetaZOLAMIDE 250 MG TABLET PO SCH (10:38)
[2019-05-14] MEDS: POLYETHYLENE GLYCOL 3350 119 GM BTL PO SCH (10:38)
[2019-05-14] MEDS: DORZOLAMIDE 2% HCL OPHTHALMIC SOLUTION 10 ML BOTTLE OU SCH (10:39)
[2019-05-14] MEDS: TIMOLOL 0.5% OPHTHALMIC SOL 5 ML BOTTLE OU SCH (10:39)
[2019-05-14] MEDS: PILOCARPINE 2% OPHTHALMIC SOLUTION 15 ML BOTTLE OU SCH (10:39)
== END 2019-05-14 12:58 | DRG 291 ==
LOC: JER 16:28 → JERBED 18:43 → J4S 05-06 18:32
PROVIDERS: ADMIT Internal Medicine; ATTEND Internal Medicine
DX: I11.0 Hypertensive heart disease with heart failure (principal); J96.21 Acute and chronic respiratory failure with hypoxia; J96.22 Acute and chronic respiratory failure with hypercapnia; J18.9 Pneumonia, unspecified organism; J44.1 Chronic obstructive pulmonary disease with (acute) exacerbation; B37.0 Candidal stomatitis; I50.23 Acute on chronic systolic (congestive) heart failure; E11.9 Type 2 diabetes mellitus without complications; E11.51 Type 2 diabetes mellitus with diabetic peripheral angiopathy without gangrene; F17.210 Nicotine dependence, cigarettes, uncomplicated; R13.10 Dysphagia, unspecified; K42.9 Umbilical hernia without obstruction or gangrene; E87.6 Hypokalemia; F41.9 Anxiety disorder, unspecified; R00.0 Tachycardia, unspecified; R91.1 Solitary pulmonary nodule; Z91.14 Patient's other noncompliance with medication regimen
CPT/HCPCS: 36415; 36600; 71045-TC-FY; 71250-TC; 80048; 80053; 82375; 82550; 82803; 82962; 83050; 83880; 84484; 85025; 85379; 93005; 93010; 93306-TC; 93971-TC; 94640; 94660; 97116-GP; 97161-GP; 99285-25

== ENCOUNTER 2019-05-22 08:27 | Inpatient (IN) | payer OTHER ==
--- NOTE | 2019-05-22 08:30 | PDOC ---
History of Present Illness - General Chief Complaint: Nausea/Vomiting Stated Complaint: VOMITING Time Seen by Provider: 05/22/19 08:30 History Source: Patient, EMS Exam Limitations: No Limitations - History of Present Illness Initial Comments: 83 year old female with PMH HTN, HLD, DM, COPD on home O2 sent to ED from [facility] for coffee ground emesis last night. Pt reported she felt well until after dinner when she felt nauseous, had an episode of vomiting, she is unsure of the color as she did not look. She reported LLQ abdominal pain last night, resolved now. She reported she went two days without a BM, was given a medication last night, and then had a normal BM, she denied black/red stools. She reported she also has a cough, unsure of for how long, denied SOB, denied CP. ROS General: denied fever, chills, generalized weakness. HEENT: denied sore throat, rhinorrhea, ear pain. Cardiovascular: denied chest pain, palpitations, syncope, diaphoresis. Respiratory: admitted to cough. denied shortness of breath, sputum production, hemoptysis. Gastrointestinal: admitted to abdominal pain, nausea, vomiting, constipation. denied diarrhea, blood in stool. Genitourinary: denied dysuria, increased urinary frequency, hematuria, urinary incontinence, flank pain. Back: denied back pain. Musculoskeletal: denied joint pain, muscle pain, joint swelling. Neurological: denied headache, dizziness, numbness, tingling, weakness. Integumentary: denied rash, laceration, abrasion. Hematologic/Lymphatic: denied bruising or bleeding. PE Constitutional: Well-nourished, Well-developed, appearing stated age. actively coughing. HEENT: head is normocephalic, atraumatic. EOMI. PERRLA. Neck: supple. Full ROM. Cardiovascular: regular heart rhythm. Normal S1 and S2. no murmurs. no pericardial friction rub. Respiratory: right sided rhonchi. left sided decreased air movement. no stridor. speaking full sentences. Gastrointestinal: soft, flat. tender to LLQ, minimally diffusely tender. decreased bowel sounds. no rebound, guarding, or masses. Extremities: peripheral pulses intact and equal. no lower extremity edema noted. Neurological: CN 2-12 grossly intact. moves all four extremities. Psych: awake, alert, oriented to person and place. follows commands. answers questions appropriately. Skin: unstageable 4 cm ulcer to sacral area. 1 cm stage 1 ulcer to sacral area. 1 cm stage 1 ulcer to sacral area. Past History - Past Medical History Allergies/Adverse Reactions: Allergies Allergy/AdvReac Type Severity Reaction Status Date / Time No Known Allergies Allergy Verified 05/22/19 09:42 Home Medications: Ambulatory Orders Amlodipine Besylate [Norvasc -] 5 mg PO DAILY 03/22/14 Losartan Potassium 100 mg PO DAILY 03/23/14 Acetaminophen W/ Codeine #3 [Tylenol # 3 -] 1 tab PO TID PRN 04/20/16 Brimonidine Tartrate/Timolol [Combigan 0.2%-0.5% Eye Drops] 1 drop OU DAILY 04/20/16 Insulin (Novolog 70/30) [Novolog Mix 70/30 Flexpen -] 8 units SQ DAILY 04/20/16 Latanoprost 0.005% Eye Drops [Xalatan 0.005% Eye Drops -] 1 drop OU HS 04/20/16 Alprazolam [Xanax] 0.5 mg PO TID PRN 07/26/16 Glipizide 5 mg PO DAILY 01/26/17 Pilocarpine 2% [Pilostat 2% -] 1 drop OP BID 10/03/18 Famotidine [Pepcid -] 20 mg PO BID #60 tablet 10/08/18 Aa/Hydrolyzed Collagen, Whey [Lps 15-30 Liquid] 30 ml PO BID 05/22/19 Albuterol 2.5/Ipratropium 0.5 [Duoneb -] 1 amp NEB BID PRN 05/22/19 Ascorbic Acid [Vitamin C] 500 mg PO DAILY 05/22/19 Dorzolamide HCl/Pf [Dorzolamide 2% Eye Drop] 1 drop OP BID 05/22/19 Insulin Lispro [Admelog Solostar] 100 unit SQ ASDIR 05/22/19 Multivitamins [Tab-A-Vit -] 1 tab PO DAILY 05/22/19 Polyethylene Glycol 3350 [Miralax (For Daily Use) -] 17 gm PO DAILY 05/22/19 Prednisolone [Millipred] 10 mg PO DAILY 05/22/19 Sennosides [Senna] 2 tab PO PRN 03/06/20 Silver Sulfadiazine 1% Top Cr [Silvadene -] 1 applic TP DAILY 05/22/19 Zinc Sulfate 220 mg PO DAILY 05/22/19 - Psycho Social/Smoking Cessation Hx Number of Cigarettes Smoked Daily: 2 'Breaking Loose' booklet given: 05/06/19 ED Treatment Course - LABORATORY CBC & Chemistry Diagram: 05/22/19 08:50 05/22/19 08:46 Medical Decision Making - Medical Decision Making 83 year old female with above PMH sent to ED from [facility] for LLQ pain, nausea/vomiting last night coffee ground per NH, cough of unknown duration. Initial Vital Signs Temp Pulse Resp BP Pulse Ox 98.0 F 105 H 20 109/54 L 94 L 05/22/19 08:30 05/22/19 08:30 05/22/19 08:30 05/22/19 08:30 05/22/19 08:30 Afebrile. Tachycardic. No tachypnea. Hypotensive. Borderline hypoxia on 3L O2. EKG performed at 0849: rate 113, regular rhythm, normal intervals, no acute ST changes, QTc 444. Labs ordered: CBC, CMP, Mg, Coags, T&S, lactate Imaging ordered: CXR, abdominal XR, CT abdomen/pelvis Medications ordered: normal saline bolus 1000 cc once, zofran 4 mg IV once, protonix 40 mg IV push, protonix gtt CXR report: Charley Yost Name: [facility] OF RADIOLOGY Phys: Taryn Deshpande RESIDENT : 1935 Age: 83 Sex: F [facility] Acct: [id number] Loc: [address] Exam Date: 05/22/19 Status: [place] [id number] Unit Number: [id number] EXAM#: TYPE/EXAM: RESULT: [id number] RAD/CHEST X-RAY PORTABLE* Chest: Coffee ground emesis Single view of the chest reveals a slightly elevated right hemidiaphragm with scoliosis and convexity to the left. There is a sclerotic unfolded aorta, normal christine and large heart. An acute chest process is not seen. There is right skin fold artifact. Since 05/05/2019 there is no change of an adverse nature. Impression: No acute chest pathology. Large heart. Reported By: José Miguel Duque MD 05/22/19 0949 ---CT chest ordered to evaluate right sided rhonchi Abdominal XR report: Charley Yost Name: [facility] OF RADIOLOGY Phys: Taryn Deshpande RESIDENT : 1935 Age: 83 Sex: F [facility] Acct: [id number] Loc: [address] Exam Date: 05/22/19 [place] t[place]: [place] [address] Unit Number: [id number] EXAM#: TYPE/EXAM: RESULT: [id number] RAD/ABDOMEN FLAT UPRIGHT Rule out obstruction. Abdomen 2 views. The lung bases are clear. Right skin fold. No evidence of pulmonary infiltrates, atelectasis or pneumothorax. Demineralized osseous structures. Moderate dextroscoliosis of the thoracolumbar lumbosacral spine. No pneumoperitoneum is seen. No evidence of distended loops of small bowel, or colon. Chronic post traumatic deformity involving the pubic rami, symphysis pubis. Impression No evidence of intestinal obstruction, or pneumoperitoneum Reported By: Lalo Bethea MD 05/22/19 1232 05/22/19 11:16 Laboratory Last Values WBC 18.6 K/mm3 (4.0-10.0) H 05/22/19 08:50 RBC 4.06 M/mm3 (3.60-5.2) 05/22/19 08:50 Hgb 12.3 GM/dL (10.7-15.3) 05/22/19 08:50 Hct 38.0 % (32.4-45.2) 05/22/19 08:50 MCV 93.6 fl (80-96) 05/22/19 08:50 MCH 30.2 pg (25.7-33.7) 05/22/19 08:50 MCHC 32.2 g/dl (32.0-36.0) 05/22/19 08:50 RDW 13.8 % (11.6-15.6) 05/22/19 08:50 Plt Count 147 K/MM3 (134-434) 05/22/19 08:50 MPV 11.7 fl (7.5-11.1) H D 05/22/19 08:50 Absolute Neuts (auto) 17.3 K/mm3 (1.5-8.0) H 05/22/19 08:50 Neutrophils % 93.4 % (42.8-82.8) H 05/22/19 08:50 Lymphocytes % 2.5 % (8-40) L D 05/22/19 08:50 Monocytes % 3.9 % (3.8-10.2) D 05/22/19 08:50 Eosinophils % 0.0 % (0-4.5) 05/22/19 08:50 Basophils % 0.2 % (0-2.0) 05/22/19 08:50 Nucleated RBC % 0 % (0-0) 05/22/19 08:50 PT with INR 10.40 SEC (9.7-13.0) 05/22/19 08:50 INR 0.88 (0.83-1.09) 05/22/19 08:50 PTT (Actin FS) 28.5 SECONDS (25.2-36.5) 05/22/19 08:50 Sodium 149 mmol/L (136-145) H 05/22/19 08:46 Potassium 5.0 mmol/L (3.5-5.1) 05/22/19 08:46 Chloride 112 mmol/L (98-107) H 05/22/19 08:46 Carbon Dioxide 30 mmol/L (21-32) 05/22/19 08:46 Anion Gap 6 MMOL/L (8-16) L 05/22/19 08:46 BUN 53.5 mg/dL (7-18) H 05/22/19 08:46 Creatinine 1.0 mg/dL (0.55-1.3) 05/22/19 08:46 Est GFR (CKD-EPI)AfAm 59.91 05/22/19 08:46 Est GFR (CKD-EPI)NonAf 51.69 05/22/19 08:46 Random Glucose 217 mg/dL (74-106) H 05/22/19 08:46 Lactic Acid 1.1 mmol/L (0.4-2.0) 05/22/19 08:46 Calcium 9.3 mg/dL (8.5-10.1) 05/22/19 08:46 Magnesium 3.1 mg/dL (1.8-2.4) H 05/22/19 08:46 Total Bilirubin 0.5 mg/dL (0.2-1) 05/22/19 08:46 AST 55 U/L (15-37) H 05/22/19 08:46 ALT 31 U/L (13-61) 05/22/19 08:46 Alkaline Phosphatase 119 U/L (45-117) H 05/22/19 08:46 Troponin I 0.09 ng/ml (0.00-0.05) H 05/22/19 08:46 Total Protein 5.7 g/dl (6.4-8.2) L 05/22/19 08:46 Albumin 2.4 g/dl (3.4-5.0) L 05/22/19 08:46 Lipase 23 U/L (73-393) L 05/22/19 08:46 Blood Type O POSITIVE 05/22/19 08:50 Antibody Screen Negative 05/22/19 08:50 Leukocytosis with left shift. Mild hypernatremia - IVF given Pre-renal azotemia No lactic acidosis Elevated AST Troponin elevated Lipase wnl Medications ordered: Vancomyucin, Zosyn -No ASA given 2/2 current possible GIB 05/22/19 15:02 Vital Signs Temperature 98.5 F 05/22/19 13:35 Pulse Rate 107 H 05/22/19 13:35 Respiratory Rate 20 05/22/19 13:35 Blood Pressure 140/75 05/22/19 13:35 O2 Sat by Pulse Oximetry (%) 95 05/22/19 13:35 CT report: Charley Ritika Name: [facility] RADIOLOGY Phys: Mariana Rice MD; Taryn Deshpande : 1935 Age: 83 Sex: F [facility] Acct: [id number] Loc: [address] Exam Date: 05/22/19 Status: [place] [id number] Unit Number: [id number] EXAM#: TYPE/EXAM: RESULT: [id number] CT/ABDOMEN PELVIS CT WITH CONTR [id number] CT/CHEST CT WITH CONTRAST Left lower quadrant pain. Coffee ground emesis. Rule out pneumonia CT scan of the chest, abdomen and pelvis following intravenous contrast. Contiguous axial scans were obtained followed with coronal/ sagittal reconstruction images. Compared to prior CT scan of the chest dated 05/10/[address] scan of the abdomen and pelvis dated 10/08/2018 In the chest, previously visualized nodule in the left upper lobe nodular density again measures 10 mm in diameter with interval central cavitation. This nodule was not seen on prior CT scan of the chest dated 04/20/2016. There is moderate centrilobular emphysema mainly in the upper lobes. Mild bibasal atelectatic changes, left more the right. No pneumothorax or pleural effusion identified, bilaterally. Included lower neck appears unremarkable. Multiple calcified plaques in the aortic arch. The heart is within normal limits in size. No enlarged mediastinal or hilar lymph nodes are identified. Normal size and enhancement of the thoracic aorta. There is also normal enhancement of the main pulmonary artery and its proximal branches. In the abdomen and pelvis, evaluation of the liver, spleen, pancreas and evaluation of a partially distended gallbladder appear unremarkable. The left adrenal gland remains a prominent with suggestion of nodular hyperplasia versus an adrenal adenoma measuring approximately 1.4 cm. Right adrenal gland and both kidneys appear unremarkable. Normal size and enhancement of the abdominal aorta down through its bifurcation with multiple calcified plaques present. There is no evidence of small bowel obstruction. Moderate amount of fecal residue in the colon. Normal-appearing terminal ileum and appendix partially distended urinary bladder with mild smooth thickening of its wall likely due to inadequate distention. Calcified densities at the uterine fundus measuring up to 1.2 cm compatible with calcified fibroids. There is also suggestion of a large fibroid in the lower uterine segment measuring 4.5 x 4.2 cm. There remains a multilevel significant degenerative disc disease in the lumbar spine and mild chronic compression of T9 vertebral body without compromise of the spinal canal IMPRESSION: Previously visualized 1 cm nodule in the left upper lobe is unchanged in size with interval cavitation of its center. Again further víctor luation is needed to rule out a post infectious versus neoplastic process. A PET CT scan would be the study of choice for further evaluation. Moderate COPD changes again seen mainly involving the upper lobes. Mild atelectatic and interstitial thickening mainly in the left lung base, cannot rule out infiltrates Abdomen and pelvis, there is mild smooth thickening of the urinary bladder wall likely due to inadequate distention. Correlate to rule out cystitis. A few diverticula in the sigmoid colon without evidence of acute colitis. Fibroid uterus, as described above. Chronic fractures in the left and right inferior pubic ramus as well as mild chronic compression fracture of T9 vertebral body without compromise of the spinal canal. Multilevel degenerative disc disease mainly in the lumbar spine. Reported By: Suzy Recio MD 05/22/19 1446 Pt to be admitted for sepsis, leukocytosis, GIB, possible pneumonia. Discharge - Discharge Information Problems reviewed: Yes Clinical Impression/Diagnosis: GIB (gastrointestinal bleeding), Pneumonia, Leukocytosis Condition: Stable - Admission Yes - Follow up/Referral Referrals: Margareth Manzo MD [Primary Care Provider] - - Patient Discharge Instructions - Post Discharge Activity
[2019-05-22] MEDS ORDERED: SODIUM CHLORIDE 1,000 ML IV STA (08:54)
[2019-05-22] MEDS ORDERED: ONDANSETRON 4 MG/2 ML VIAL IVPUSH ONE ×2 (08:54→20:12)
[2019-05-22] MEDS ORDERED: FAMOTIDINE 20 MG/50 ML IVPB 20 MG/50 ML MG IVPB ONE ×2 (09:05→09:11)
[2019-05-22] MEDS ORDERED: ONDANSETRON 4 MG/2 ML VIAL ONE (09:11)
[2019-05-22 09:42] LABS: BASO % 0.2 % (0-2.0); HEMOGLOBIN 12.3 GM/dL (10.7-15.3); LYMPH % 2.5 % (8-40); MCH 30.2 pg (25.7-33.7); MCHC 32.2 g/dl (32.0-36.0); MEAN CELL VOLUME 93.6 fl (80-96); MEAN PLT VOLUME 11.7 fl (7.5-11.1); MONO % 3.9 % (3.8-10.2); NEUT % 93.4 % (42.8-82.8); PLATELET COUNT 147 K/MM3 (134-434); RBC 4.06 M/mm3 (3.60-5.2); RDW 13.8 % (11.6-15.6); WHITE BLOOD COUNT 18.6 K/mm3 (4.0-10.0)
[2019-05-22 09:45] LABS: ALBUMIN 2.4 g/dl (3.4-5.0); BILIRUBIN,TOTAL 0.5 mg/dL (0.2-1); BLOOD UREA NITROGEN 53.5 mg/dL (7-18); CALCIUM 9.3 mg/dL (8.5-10.1); MAGNESIUM 3.1 mg/dL (1.8-2.4); TOT PROT 5.7 g/dl (6.4-8.2)
[2019-05-22 10:06] LABS: INR 0.88 (0.83-1.09); PROTHROMBIN TIME (PATIENT) 10.4 SEC (9.7-13.0)
[2019-05-22 10:08] LABS: ACTIVATED PTT 28.5 SECONDS (25.2-36.5)
[2019-05-22] MEDS ORDERED: ACETAMINOPHEN 1000 MG/100 ML VIAL (NON FORMULARY) IVPB ONE (11:12)
[2019-05-22] MEDS ORDERED: ASPIRIN 81 MG CHEWABLE TABLETS ONE (11:13)
[2019-05-22] MEDS: ASPIRIN 81 MG CHEWABLE TABLETS PO ONE ×2 (11:15→11:34)
[2019-05-22 11:18] LABS: ANISOCYTOSIS 1+; MACROCYTOSIS 0; OVALOCYTE 1+; PLATELET ESTIMATE DECREASED; TEAR DROP CELLS 1+; TOXIC GRANULATION 1+
[2019-05-22] MEDS ORDERED: PIPERACILLIN/TAZOB 4.5 GM 4.5 GM in DEXTROSE 5%-WATER 100 ML IVPB ONE (11:51)
[2019-05-22] MEDS ORDERED: VANCOMYCIN 1,000 MG in DEXTROSE 5%-WATER - 250 ML IVPB ONE (11:51)
[2019-05-22] MEDS ORDERED: PANTOPRAZOLE SODIUM 40 MG VIAL IVPUSH ONE (11:52)
--- NOTE | 2019-05-22 12:27 | PDOC ---
Documentation entered by Sally Song SCRIBE, acting as scribe for Mariana Escobar MD. Mariana Escobar MD: This documentation has been prepared by the Nohemi humphries Nirvannie, SCRIBE, under my direction and personally reviewed by me in its entirety. I confirm that the documentation accurately reflects all work, treatment, procedures, and medical decision making performed by me. Attending Attestation - Resident Resident Name: JeramyTaryn - ED Attending Attestation I have performed the following: I have examined & evaluated the patient, The case was reviewed & discussed with the resident, I agree w/resident's findings & plan, Exceptions are as noted - HPI HPI: 05/22/19 10:23 The patient is a 83 year old female, with a significant past medical history of hypertension, hyperlipidemia, diabetes mellitus, COPD (on home O2), who presents to the emergency department via EMS from [facility] s/p coffee ground emesis last night. As per patient, after dinner she began to feel nauseous with one episode of emesis with associated LLQ abdominal pain, which has since resolved. She notes constipation for 2 days which resolved last night. She notes an associated cough for an unknown period of time. Allergies: NKDA - Physicial Exam PE: GENERAL: Awake, alert, and oriented to person and place, in no acute distress HEAD: No signs of trauma EYES: PERRLA, EOMI, sclera anicteric, conjunctiva clear ENT: Auricles normal inspection, hearing grossly normal, nares patent, oropharynx clear without exudates. Dry mucosa NECK: Normal ROM, supple, no lymphadenopathy, JVD, or masses LUNGS: Breath sounds equal, clear to auscultation bilaterally. No wheezes, and no crackles HEART: Regular rate and rhythm, normal S1 and S2, no murmurs, rubs or gallops ABDOMEN: Soft, nontender, normoactive bowel sounds. No guarding, no rebound. No masses EXTREMITIES: Normal range of motion, no edema. No clubbing or cyanosis. No cords, erythema, or tenderness NEUROLOGICAL: Cranial nerves II through XII grossly intact. Normal speech. Motor and sensation intact SKIN: Warm, dry, normal turgor, no rashes or lesions noted. - Medical Decision Making Pt with coffee ground emesis as per NH notes. Noted to have elevated troponin (negative but detectable), leukocytosis. Will check CT a/p and chest (patient unable to give any history, source of leukocytosis unclear). Broad spectrum abx, protonix. Stool occult. Plan for admission.
[2019-05-22] MEDS ORDERED: PIPERACILLIN/TAZOB 4.5 GM 4.5 GM/100 ML BAG IVPB ONE (12:39)
[2019-05-22] MEDS ORDERED: PANTOPRAZOLE SODIUM 40 MG VIAL ONE (12:39)
[2019-05-22] MEDS ORDERED: VANCOMYCIN 1 GRAM (PRE-DOCKED) 1,000 MG/250 ML BAG IVPB ONE (12:39)
[2019-05-22] MEDS: PANTOPRAZOLE SODIUM 80 MG in SODIUM CHLORIDE 100 ML IVPB SCH ×2 (12:54→21:45)
[2019-05-22] MEDS ORDERED: SODIUM CHLORIDE 1,000 ML IV SCH (18:00)
[2019-05-22] MEDS ORDERED: PIPERACILLIN/TAZOBACTAM 3.375 GM VIAL IVPB ONE (21:11)
[2019-05-22] MEDS ORDERED: DEXTROSE 5%-WATER - 50 ML IVPB ONE (21:12)
[2019-05-22] MEDS: PIPERACILLIN/TAZOB 3.375 GM 3.375 GM in DEXTROSE 5%-WATER - 50 ML IVPB SCH (21:45)
[2019-05-22] MEDS ORDERED: PIPERACILLIN/TAZOB 3.375 GM 3.375 GM in DEXTROSE 5%-WATER - 50 ML IVPB SCH (22:00)
[2019-05-23] MEDS ORDERED: PIPERACILLIN/TAZOBACTAM 3.375 GM VIAL IVPB ONE ×2 (02:07→09:01)
[2019-05-23] MEDS ORDERED: DEXTROSE 5%-WATER - 50 ML IVPB ONE ×2 (02:07→09:02)
[2019-05-23] MEDS: PIPERACILLIN/TAZOB 3.375 GM 3.375 GM in DEXTROSE 5%-WATER - 50 ML IVPB SCH ×2 (03:07→09:07)
[2019-05-23 08:00] LABS: HEMATOCRIT 38.5 % (32.4-45.2); MCH 30.4 pg (25.7-33.7); MCHC 31.2 g/dl (32.0-36.0); MEAN CELL VOLUME 97.7 fl (80-96); MEAN PLT VOLUME 12.2 fl (7.5-11.1); PLATELET COUNT 148 K/MM3 (134-434); RBC 3.95 M/mm3 (3.60-5.2); RDW 14.3 % (11.6-15.6)
[2019-05-23 08:10] LABS: BLOOD UREA NITROGEN 39.9 mg/dL (7-18); CALCIUM 8.5 mg/dL (8.5-10.1); MAGNESIUM 2.3 mg/dL (1.8-2.4); POTASSIUM 4.5 mmol/L (3.5-5.1)
[2019-05-23] MEDS ORDERED: ALBUTEROL SO4 2.5/IPRATROPIUM 0.5 INH SOL 3 ML VIAL.NEB. NEB PRN (09:49)
[2019-05-23] MEDS ORDERED: ONDANSETRON 4 MG/2 ML VIAL IVPUSH PRN (09:52)
[2019-05-23] MEDS ORDERED: PATIENT'S OWN MEDICATION (NON-FORMULARY) (Brimonidine Tartrate/Timolol [Combigan 0.2%-0.5% OU SCH (10:00)
[2019-05-23] MEDS ORDERED: LOSARTAN POTASSIUM 50 MG TABLET (FP) PO SCH (10:00)
--- NOTE | 2019-05-23 10:30 | EKG ---
Test Reason : Blood Pressure : / mmHG Vent. Rate : 113 BPM Atrial Rate : 113 BPM P-R Int : 088 ms QRS Dur : 066 ms QT Int : 324 ms P-R-T Axes : 000 008 107 degrees QTc Int : 444 ms POOR DATA QUALITY, INTERPRETATION MAY BE ADVERSELY AFFECTED SINUS TACHYCARDIA WITH SHORT IN WITH PREMATURE SUPRAVENTRICULAR COMPLEXES ANTERIOR INFARCT (CITED ON OR BEFORE 05-MAY-2019) ABNORMAL ECG Confirmed by Brandon Lan MD ([id number]) on 05/23/2019 10:30:34 AM Referred By: Confirmed By:Brandon Lan MD
[2019-05-23] MEDS: amLODIPine BESYLATE 5 MG TABLET (FP) PO SCH (10:50)
[2019-05-23] MEDS ORDERED: INSULIN SLIDING SCALE (NOVOLOG) 1 VIAL SQ SCH (11:00)
--- NOTE | 2019-05-23 11:02 | HP ---
Admitting History and Physical - Primary Care Physician PCP: Margareth Manzo - Admission Chief Complaint: coffee ground emesis History of Present Illness: 83 yrs old F frail, multiple Co-morbidities H/O T2DM, advanced COPD on Home O2 ex smoker, HTN, Diastolic Hf, chronic back pain and anxiety, EGD with Dr Restrepo on 03/23/14 which revealed a mild narrowing in the proximal esophagus that he dilated with the scope. She also had a non-obstructing Schatzki ring above a hiatal hernia the biopsies of which revealed Hammond's metaplasia, currently in [place] after Dc from [facility] yesterday developed Coffee ground emesis with epigasric pain prompted his transfer to ED for evaluation, H/H is table elevated BUN and elevated TWBC, at the time of examination c/o anxiety and mild epigastric pain. No hemtmesis since last night no melena, , stool occult blood -ve - Past Medical History Cardiovascular: Yes: CHF, HTN Pulmonary: Yes: COPD, O2 Dependent Gastrointestinal: Yes: Gastritis, GERD ...: No Musculoskeletal: Yes: Chronic low back pain Endocrine: Yes: Diabetes Mellitus - Past Surgical History Past Surgical History: Yes: Colonoscopy, Hysterectomy - Advance Directives Advance Directives: Yes: Health Care Proxy, DNR - Smoking History Smoking history: Former smoker Have you smoked in the past 12 months: Yes Aproximately how many cigarettes per day: 2 - Alcohol/Substance Use Hx Alcohol Use: No - Social History ADL: Independent History of Recent Travel: No Home Medications - Allergies Allergies/Adverse Reactions: Allergies Allergy/AdvReac Type Severity Reaction Status Date / Time No Known Allergies Allergy Verified 05/22/19 09:42 - Home Medications Home Medications: Ambulatory Orders Amlodipine Besylate [Norvasc -] 5 mg PO DAILY 03/22/14 Losartan Potassium 100 mg PO DAILY 03/23/14 Acetaminophen W/ Codeine #3 [Tylenol # 3 -] 1 tab PO TID PRN 04/20/16 Brimonidine Tartrate/Timolol [Combigan 0.2%-0.5% Eye Drops] 1 drop OU DAILY 04/20/16 Insulin (Novolog 70/30) [Novolog Mix 70/30 Flexpen -] 8 units SQ DAILY 04/20/16 Latanoprost 0.005% Eye Drops [Xalatan 0.005% Eye Drops -] 1 drop OU HS 04/20/16 Alprazolam [Xanax] 0.5 mg PO TID PRN 07/26/16 Glipizide 5 mg PO DAILY 01/26/17 Pilocarpine 2% [Pilostat 2% -] 1 drop OP BID 10/03/18 Famotidine [Pepcid -] 20 mg PO BID #60 tablet 10/08/18 Aa/Hydrolyzed Collagen, Whey [Lps 15-30 Liquid] 30 ml PO BID 05/22/19 Albuterol 2.5/Ipratropium 0.5 [Duoneb -] 1 amp NEB BID PRN 05/22/19 Ascorbic Acid [Vitamin C] 500 mg PO DAILY 05/22/19 Dorzolamide HCl/Pf [Dorzolamide 2% Eye Drop] 1 drop OP BID 05/22/19 Insulin Lispro [Admelog Solostar] 100 unit SQ ASDIR 05/22/19 Multivitamins [Tab-A-Vit -] 1 tab PO DAILY 05/22/19 Polyethylene Glycol 3350 [Miralax (For Daily Use) -] 17 gm PO DAILY 05/22/19 Prednisolone [Millipred] 10 mg PO DAILY 05/22/19 Sennosides [Senna] 2 tab PO PRN 05/22/19 Silver Sulfadiazine 1% Top Cr [Silvadene -] 1 applic TP DAILY 05/22/19 Zinc Sulfate 220 mg PO DAILY 05/22/19 Family Medical History Family Hx Cancer: Brother (Colon) Review of Systems - Review of Systems Constitutional: reports: Lethargy Eyes: denies: Blind Spots, Blurred Vision, Double Vision HENT: denies: Difficult Swallowing, Ear Discharge, Ear Pain Neck: denies: Decreased ROM, Lumps, Pain on Movement Cardiovascular: reports: Shortness of Breath. denies: Chest Pain, Edema, Palpitations Respiratory: reports: Cough, Exercise Intolerance, Orthopnea, SOB Gastrointestinal: reports: Abdominal Pain, Vomiting Genitourinary: denies: Discharge, Dysuria Musculoskeletal: reports: Back Pain. denies: Crepitus Integumentary: denies: Bruising, Change in Color, Eczema Endocrine: denies: Excessive Sweating, Flushing, Increased Hunger Physical Examination Vital Signs: Vital Signs Temperature 98.0 F 05/23/19 05:55 Pulse Rate 110 H 05/23/19 05:55 Respiratory Rate 18 05/23/19 05:55 Blood Pressure 126/57 L 05/23/19 05:55 O2 Sat by Pulse Oximetry (%) 96 05/22/19 20:00 Elderly Frail F in respiratory distress HEENT: Mm dry, no anemia NECK: No JVd No Bruit CHEST: Crepts and wheezing (minimal) CVS: S1S2 Tachycardia ABD: no distention, epigastric tenderness BS + EXT: Trace edema, Pulses + FOREST FIRE LOOKOUT: AOX3 non focal Labs: CBC, BMP 05/23/19 07:10 05/23/19 07:10 Imaging - Results Cat Scan: Report Reviewed (CHEST: Rt UL Nodule now Cavittaion in Ctr, COPD left base atelactasis CT abd; Diverticulosis and Fibroid) EKG: Report Reviewed (Sinus Tcahycardia at [address] chnages) Problem List - Problems (1) Hematemesis with nausea Assessment/Plan: Considering previous EGD findings possibility of upper GI bleed H/H stable, GI input appreciated, clear liquid diet, PPI infusion at present too decompensated for EGD F/U serial CBC Problems reviewed: Yes Code(s): K92.0 - HEMATEMESIS (2) Hiatal hernia with GERD Assessment/Plan: Cont PPI EGD onse stable Problems reviewed: Yes Code(s): K21.9 - GASTRO-ESOPHAGEAL REFLUX DISEASE WITHOUT ESOPHAGITIS; K44.9 - DIAPHRAGMATIC HERNIA WITHOUT OBSTRUCTION OR GANGRENE (3) COPD exacerbation Assessment/Plan: Cont Duoneb add advair, ICV steroid F/U Pulmonary consult conr Zosyn Problems reviewed: Yes Code(s): J44.1 - CHRONIC OBSTRUCTIVE PULMONARY DISEASE W (ACUTE) EXACERBATION (4) H/O: HTN (hypertension) Assessment/Plan: Cont Home meds Problems reviewed: Yes Code(s): Z86.79 - PERSONAL HISTORY OF OTHER DISEASES OF THE CIRCULATORY SYSTEM (5) Elevated troponin Assessment/Plan: Previous NST -ve in 2017 most likely stress related F/U Trop I and ECHO Problems reviewed: Yes Code(s): R79.89 - OTHER SPECIFIED ABNORMAL FINDINGS OF BLOOD CHEMISTRY (6) SOB (shortness of breath) Assessment/Plan: H/O Diastolic HF and COPD will F/U ECHO and Pro BNP Problems reviewed: Yes Code(s): R06.02 - SHORTNESS OF BREATH (7) Hypernatremia Assessment/Plan: 1/2 NS F/U BMP in PM Problems reviewed: Yes Code(s): E87.0 - HYPEROSMOLALITY AND HYPERNATREMIA (8) Cavitating mass of lung Assessment/Plan: Rt Upper lobe nodule with central cavitation will F/U Pulmonary recoommondations. Problems reviewed: Yes Code(s): J98.4 - OTHER DISORDERS OF LUNG (9) CAIN (acute kidney injury) Assessment/Plan: Due to dehydartion F/U BMP after Hydration Problems reviewed: Yes Code(s): N17.9 - ACUTE KIDNEY FAILURE, UNSPECIFIED (10) Anxiety Assessment/Plan: cont Xanax 0.5 mg PRN Problems reviewed: Yes Code(s): F41.9 - ANXIETY DISORDER, UNSPECIFIED Assessment/Plan Active Medications Acetaminophen/Codeine Phosphate (Tylenol # 3 -) 1 tab PO TID PRN PRN Reason: PAIN Last Admin: 05/23/19 16:37 Dose: 1 tab Documented by: Albuterol/Ipratropium (Duoneb -) 1 amp NEB Q4H PRN PRN Reason: ASTHMA Last Admin: 05/23/19 14:26 Dose: 1 amp Documented by: Amlodipine Besylate (Norvasc -) 5 mg PO DAILY ERASTO Last Admin: 05/23/19 10:50 Dose: Not Given Documented by: Brimonidine Tartrate (Alphagan 0.2% -) 1 drop OU BID ERASTO Piperacillin Sod/Tazobactam (Sod 3.375 gm/ Dextrose) 50 mls @ 100 mls/hr IVPB Q8H-IV ERASTO; Protocol Sodium Chloride (1/2 Normal Saline) 1,000 mls @ 75 mls/hr IV ASDIR ERASTO Last Admin: 05/23/19 18:25 Dose: 75 mls/hr Documented by: Pantoprazole Sodium 80 mg/ (Sodium Chloride) 100 mls @ 10 mls/hr IVPB Q10H ERASTO Stop: 05/26/19 14:21 Last Admin: 05/23/19 14:34 Dose: Not Given Documented by: Insulin Aspart (Novolog Mix 70/30 Vial) 8 units SQ ACBK ERASTO Last Admin: 05/23/19 14:28 Dose: Not Given Documented by: Insulin Aspart (Novolog Vial Sliding Scale -) 1 vial SQ Q6HPO [facility]; Protocol Last Admin: 05/23/19 18:24 Dose: 8 units Documented by: Latanoprost (Xalatan 0.005% Eye Drops -) 1 drop OU HS ERASTO Losartan Potassium (Cozaar -) 100 mg PO DAILY [facility] Last Admin: 05/23/19 10:50 Dose: Not Given Documented by: Metoclopramide HCl (Reglan Injection -) 10 mg IVPUSH Q6H-IV [facility] Last Admin: 05/23/19 14:54 Dose: 10 mg Documented by: Ondansetron HCl (Zofran Injection) 4 mg IVPUSH Q6H PRN PRN Reason: NAUSEA Pilocarpine HCl (Pilostat 2% -) 1 drop OP BID ERASTO Timolol Maleate (Timoptic 0.5%) 1 drop OU BID ERASTO
--- NOTE | 2019-05-23 13:32 | CON.GI ---
Consult Consult Specialty:: Gastroenterology Referred by:: Dr Heladio Izquierdo Reason for Consultation:: Coffee ground emesis - History of Present Illness Chief Complaint: Coffee ground emesis and epigastric pain History of Present Illness: 83F is admitted with coffee ground emesis that began yesterday. Today she is only dry heaving. She has no melena and her brown soft stool is guaiac negative. She is dyspneic and audibly wheezing. She last had an EGD with Dr Restrepo on 03/23/14 which revealed a mild narrowing in the proximal esophagus that he dilated with the scope. She also had a nonobstructing Schatzki ring above a hiatal dawson ia the biopsies of which revealed Hanks's metaplasia. Mild gastritis was also seen. She denies dysphagia. She had an EGD and a colonoscopy with Dr. Marie on 12/09/07 which revealed moderate diverticulosis in the sigmoid colon while the EGD revealed only moderate gastritis. Her brother had colon cancer. She does take Advil regularly. She stopped smoking just [address] reveals COPD and a suspicious MONICA nodule with new central cavitation - History Source History Provided By: Patient Limitations to Obtaining History: Poor Historian - Past Medical History Cardio/Vascular: Yes: HTN, Other (aortic vascular disease by CT) Pulmonary: Yes: COPD, Other ( ) Gastrointestinal: Yes: Diverticulosis, GERD (with Schatzki ring and h/o upper esophageal ring dilated in 2014), Hiatal Hernia, Other (Hanks's esophagus) Hepatobiliary: Yes: Other (fatty liver) Reproductive: Yes: Fibroids ...: No Musculoskeletal: Yes: Chronic low back pain (collapsed T9 vertebrae and multilevel disc disease) Endocrine: Yes: Diabetes Mellitus, Other (left adrenal nodule) - Past Surgical History Past Surgical History: Yes: Colonoscopy, Laminectomy, Upper Endoscopy Additional Surgical History: RLE vascular surgery - Alcohol/Substance Use Hx Alcohol Use: No History of Substance Use: reports: None - Smoking History Smoking history: Former smoker Have you smoked in the past 12 months: Yes Aproximately how many cigarettes per day: 2 If you are a former smoker, when did you quit?: 10 days ago - Social History Usual Living Arrangement: Alone ADL: Independent 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 Place of : [facility] History of Recent Travel: No Home Medications - Allergies Allergies/Adverse Reactions: Allergies Allergy/AdvReac Type Severity Reaction Status Date / Time No Known Allergies Allergy Verified 05/22/19 09:42 - Home Medications Home Medications: Ambulatory Orders Amlodipine Besylate [Norvasc -] 5 mg PO DAILY 03/22/14 Losartan Potassium 100 mg PO DAILY 03/23/14 Acetaminophen W/ Codeine #3 [Tylenol # 3 -] 1 tab PO TID PRN 04/20/16 Brimonidine Tartrate/Timolol [Combigan 0.2%-0.5% Eye Drops] 1 drop OU DAILY 04/20/16 Insulin (Novolog 70/30) [Novolog Mix 70/30 Flexpen -] 8 units SQ DAILY 04/20/16 Latanoprost 0.005% Eye Drops [Xalatan 0.005% Eye Drops -] 1 drop OU HS 04/20/16 Alprazolam [Xanax] 0.5 mg PO TID PRN 07/26/16 Glipizide 5 mg PO DAILY 01/26/17 Pilocarpine 2% [Pilostat 2% -] 1 drop OP BID 10/03/18 Famotidine [Pepcid -] 20 mg PO BID #60 tablet 10/08/18 Aa/Hydrolyzed Collagen, Whey [Lps 15-30 Liquid] 30 ml PO BID 05/22/19 Albuterol 2.5/Ipratropium 0.5 [Duoneb -] 1 amp NEB BID PRN 05/22/19 Ascorbic Acid [Vitamin C] 500 mg PO DAILY 05/22/19 Dorzolamide HCl/Pf [Dorzolamide 2% Eye Drop] 1 drop OP BID 05/22/19 Insulin Lispro [Admelog Solostar] 100 unit SQ ASDIR 05/22/19 Multivitamins [Tab-A-Vit -] 1 tab PO DAILY 05/22/19 Polyethylene Glycol 3350 [Miralax (For Daily Use) -] 17 gm PO DAILY 05/22/19 Prednisolone [Millipred] 10 mg PO DAILY 05/22/19 Sennosides [Senna] 2 tab PO PRN 05/22/19 Silver Sulfadiazine 1% Top Cr [Silvadene -] 1 applic TP DAILY 05/22/19 Zinc Sulfate 220 mg PO DAILY 05/22/19 Family Medical History Family Hx Cancer: Brother (colon cancer) Family Hx Respiratory Disorders: Father (COPD) Review of Systems - Review of Systems Constitutional: reports: Loss of Appetite, Unintentional Wgt. Loss, Weakness Eyes: reports: No Symptoms HENT: reports: No Symptoms Neck: reports: No Symptoms Cardiovascular: reports: Palpitations, Shortness of Breath Respiratory: reports: Exercise Intolerance, SOB on Exertion, Wheezing Gastrointestinal: reports: Nausea, Vomiting Genitourinary: reports: No Symptoms Musculoskeletal: reports: Back Pain, Joint Pain Physical Exam-GI Vital Signs: Vital Signs Temperature 98.0 F 05/23/19 05:55 Pulse Rate 110 H 05/23/19 05:55 Respiratory Rate 18 05/23/19 05:55 Blood Pressure 126/57 L 05/23/19 05:55 O2 Sat by Pulse Oximetry (%) 96 05/22/19 20:00 CBC,CMP WBC 19.0 K/mm3 (4.0-10.0) H 05/23/19 07:10 RBC 3.95 M/mm3 (3.60-5.2) 05/23/19 07:10 Hgb 12.0 GM/dL (10.7-15.3) 05/23/19 07:10 Hct 38.5 % (32.4-45.2) 05/23/19 07:10 MCV 97.7 fl (80-96) H 05/23/19 07:10 MCH 30.4 pg (25.7-33.7) 05/23/19 07:10 MCHC 31.2 g/dl (32.0-36.0) L 05/23/19 07:10 RDW 14.3 % (11.6-15.6) 05/23/19 07:10 Plt Count 148 K/MM3 (134-434) 05/23/19 07:10 MPV 12.2 fl (7.5-11.1) H 05/23/19 07:10 Absolute Neuts (auto) 17.3 K/mm3 (1.5-8.0) H 05/22/19 08:50 Neutrophils % 93.4 % (42.8-82.8) H 05/22/19 08:50 Neutrophils % (Manual) 86.9 % (42.8-82.8) H 05/22/19 08:50 Band Neutrophils % 9.1 % 05/22/19 08:50 Lymphocytes % 2.5 % (8-40) L D 05/22/19 08:50 Lymphocytes % (Manual) 1.0 % (8-40) L D 05/22/19 08:50 Monocytes % 3.9 % (3.8-10.2) D 05/22/19 08:50 Monocytes % (Manual) 2 % (3.8-10.2) L D 05/22/19 08:50 Eosinophils % 0.0 % (0-4.5) 05/22/19 08:50 Eosinophils % (Manual) 0.0 % (0-4.5) 05/22/19 08:50 Basophils % 0.2 % (0-2.0) 05/22/19 08:50 Basophils % (Manual) 0.0 % (0-2.0) 05/22/19 08:50 Myelocytes % (Man) 0 % (0-2) 05/22/19 08:50 Promyelocytes % (Man) 0 % (0-2) 05/22/19 08:50 Blast Cells % (Manual) 0 % (0-0) 05/22/19 08:50 Nucleated RBC % 0 % (0-0) 05/22/19 08:50 Metamyelocytes 0 % (0-2) 05/22/19 08:50 Hypochromia 0 05/22/19 08:50 Toxic Granulation 1+ 05/22/19 08:50 Platelet Estimate Decreased 05/22/19 08:50 Polychromasia 1+ 05/22/19 08:50 Poikilocytosis 1+ 05/22/19 08:50 Anisocytosis 1+ 05/22/19 08:50 Microcytosis 1+ 05/22/19 08:50 Macrocytosis 0 05/22/19 08:50 Tear Drop Cells 1+ 05/22/19 08:50 Ovalocytes 1+ 05/22/19 08:50 Dominga Cells 1+ 05/22/19 08:50 Sodium 151 mmol/L (136-145) H 05/23/19 07:10 Potassium 4.5 mmol/L (3.5-5.1) 05/23/19 07:10 Chloride 113 mmol/L (98-107) H 05/23/19 07:10 Carbon Dioxide 21 mmol/L (21-32) 05/23/19 07:10 Anion Gap 16 MMOL/L (8-16) 05/23/19 07:10 BUN 39.9 mg/dL (7-18) H 05/23/19 07:10 Creatinine 1.0 mg/dL (0.55-1.3) 05/23/19 07:10 Est GFR (CKD-EPI)AfAm 59.91 05/23/19 07:10 Est GFR (CKD-EPI)NonAf 51.69 05/23/19 07:10 POC Glucometer 362 UNITS (80-120) 05/23/19 12:48 Random Glucose 374 mg/dL (74-106) H 05/23/19 07:10 Lactic Acid 1.1 mmol/L (0.4-2.0) 05/22/19 08:46 Calcium 8.5 mg/dL (8.5-10.1) 05/23/19 07:10 Magnesium 2.3 mg/dL (1.8-2.4) 05/23/19 07:10 Total Bilirubin 0.5 mg/dL (0.2-1) 05/22/19 08:46 AST 55 U/L (15-37) H 05/22/19 08:46 ALT 31 U/L (13-61) 05/22/19 08:46 Alkaline Phosphatase 119 U/L (45-117) H 05/22/19 08:46 Troponin I 0.09 ng/ml (0.00-0.05) H 05/22/19 08:46 Total Protein 5.7 g/dl (6.4-8.2) L 05/22/19 08:46 Albumin 2.4 g/dl (3.4-5.0) L 05/22/19 08:46 Lipase 23 U/L (73-393) L 05/22/19 08:46 Current Medications Generic Name Dose Route Start Last Admin Trade Name Freq PRN Reason Stop Dose Admin Acetaminophen/Codeine Phosphate 1 tab 05/23/19 09:49 Tylenol # 3 - PO TID PRN PAIN Albuterol/Ipratropium 1 amp 05/23/19 13:27 Duoneb - NEB Q4H PRN ASTHMA Amlodipine Besylate 5 mg 05/23/19 10:00 05/23/19 10:50 Norvasc - PO Not Given DAILY ERASTO Brimonidine Tartrate 1 drop 05/23/19 22:00 Alphagan 0.2% - OU BID ERASTO Sodium Chloride 1,000 mls @ 75 mls/hr 05/22/19 18:00 05/22/19 21:44 Normal Saline - IV 75 mls/hr ASDIR ERASTO Administration Piperacillin Sod/Tazobactam 50 mls @ 100 mls/hr 05/22/19 22:00 Sod 3.375 gm/ Dextrose IVPB Q8H-IV ERASTO Protocol Sodium Chloride 1,000 mls @ 75 mls/hr 05/23/19 11:15 1/2 Normal Saline IV ASDIR ERASTO Insulin Aspart 8 units 05/23/19 11:00 Novolog Mix 70/30 Vial SQ ACBK ERASTO Insulin Aspart 1 vial 05/23/19 12:00 Novolog Vial Sliding Scale - SQ Q6HPO [facility] Protocol Latanoprost 1 drop 05/23/19 22:00 Xalatan 0.005% Eye Drops - OU HS [facility] Losartan Potassium 100 mg 05/23/19 10:00 05/23/19 10:50 Cozaar - PO Not Given DAILY [facility] Ondansetron HCl 4 mg 05/23/19 09:52 Zofran Injection IVPUSH Q6H PRN NAUSEA Pantoprazole Sodium 40 mg 05/23/19 22:00 Protonix Iv IVPUSH BID ERASTO Pilocarpine HCl 1 drop 05/23/19 10:00 Pilostat 2% - OP BID ERASTO Timolol Maleate 1 drop 05/23/19 22:00 Timoptic 0.5% OU BID [facility] Constitutional: Yes: Anxious Eyes: Yes: Conjunctiva Clear HENT: Yes: Normocephalic Neck: Yes: Trachea Midline Cardiovascular: Yes: Regular Rate and Rhythm Respiratory: Yes: Accessory Muscle Use, Tachypnea, Wheezes Gastrointestinal Inspection: Yes: Distention ...Auscultate: Yes: Hypoactive Bowel Sounds ...Palpate: Yes: Soft, Other (nontender) ...Percussion: Yes: Tympanitic ...Rectal Exam: Yes: Guaiac Negative (soft brown guaiac negative stool) Musculoskeletal: Yes: Back Pain Edema: No Neurological: Yes: Alert, Oriented Labs: CBC, BMP 05/23/19 07:10 05/23/19 07:10 INR, PTT INR 0.88 (0.83-1.09) 05/22/19 08:50 Imaging - Results Cat Scan: Report Reviewed ( Final Report CT ABDOMEN & PELVIS CT WITH CONTR Show Printer-Friendly Version Patient Name: Blanca Lambert : 1935 ID: [id number] Study Date: 22-May-2019 12:15 [facility] Name: [facility] DEPARTMENT OF RADIOLOGY Phys: Mariana Escobar MD; Taryn Deshpande : 1935 Age: 83 Sex: F [facility] Acct: [id number] Loc: [address] Exam Date: 05/22/19 Status: WINNIE [place]am[place]DAYA [id number] Unit Number: [id number] EXAM#: TYPE/EXAM: RESULT: 36 CT/ABDOMEN PELVIS CT WITH CONTR CT/CHEST CT WITH CONTRAST Left lower quadrant pain. Coffee ground emesis. Rule out pneumonia CT scan of the chest, abdomen and pelvis following intravenous contrast. Contiguous axial scans were obtained followed with coronal/ sagittal reconstruction images. Compared to prior CT scan of the chest dated 05/10/[address] scan of the abdomen and pelvis dated 10/08/2018 In the chest, previously visualized nodule in the left upper lobe nodular density again measures 10 mm in diameter with interval central cavitation. This nodule was not seen on prior CT scan of the chest dated 04/20/2016. There is moderate centrilobular emphysema mainly in the upper lobes. Mild bibasal atelectatic changes, left more the right. No pneumothorax or pleural effusion identified, bilaterally. Included lower neck appears unremarkable. Multiple calcified plaques in the aortic arch. The heart is within normal limits in size. No enlarged mediastinal or hilar lymph nodes are identified. Normal size and enhancement of the thoracic aorta. There is also normal enhancement of the main pulmonary artery and its proximal branches. In the abdomen and pelvis, evaluation of the liver, spleen, pancreas and evaluation of a partially distended gallbladder appear unremarkable. The left adrenal gland remains a prominent with suggestion of nodular hyperplasia versus an adrenal adenoma measuring approximately 1.4 cm. Right adrenal gland and both kidneys appear unremarkable. Normal size and enhancement of the abdominal aorta down through its bifurcation with multiple calcified plaques present. There is no evidence of small bowel obstruction. Moderate amount of fecal residue in the colon. Normal-appearing terminal ileum and appendix partially distended urinary bladder with mild smooth thickening of its wall likely due to inadequate distention. Calcified densities at the uterine fundus measuring up to 1.2 cm compatible with calcified fibroids. There is also suggestion of a large fibroid in the lower uterine segment measuring 4.5 x 4.2 cm. There remains a multilevel significant degenerative disc disease in the lumbar spine and mild chronic compression of T9 vertebral body without compromise of the spinal canal IMPRESSION: Previously visualized 1 cm nodule in the left upper lobe is unchanged in size with interval cavitation of its center. Again further evaluation is needed to rule out a post infectious versus neoplastic process. A PET CT scan would be the study of choice for further evaluation. Moderate COPD changes again seen mainly involving the upper lobes. Mild atelectatic and interstitial thickening mainly in the left lung base, cannot rule out infi ltrates Abdomen and pelvis, there is mild smooth thickening of the urinary bladder wall likely due to inadequate distention. Correlate to rule out cystitis. A few diverticula in the sigmoid colon without evidence of acute colitis. Fibroid uterus, as described above. Chronic fractures in the left and right inferior pubic ramus as well as mild chronic compression fracture of T9 vertebral body without compromise of the spinal canal. Multilevel degenerative disc disease mainly in the lumbar spine. Reported By: Suzy Recio MD 05/22/19 1446 Renee Escobar KAYLA Technologist: Festus Guillen Transcribed Date/Time: 05/22/19 144 [employer] Installer: Suzy Recio Printed Date/Time: By: Signed by: Suzy Recio Signed on: 22-May-2019 14:46) Problem List - Problems (1) Hematemesis with nausea Code(s): K92.0 - HEMATEMESIS (2) Epigastric pain Code(s): R10.13 - EPIGASTRIC PAIN (3) Cavitating mass of lung Code(s): J98.4 - OTHER DISORDERS OF LUNG (4) Barretts esophagus Code(s): K22.70 - HANKS'S ESOPHAGUS WITHOUT DYSPLASIA (5) Adrenal adenoma Code(s): D35.00 - BENIGN NEOPLASM OF UNSPECIFIED ADRENAL GLAND (6) Fatty liver Code(s): K76.0 - FATTY (CHANGE OF) LIVER, NOT ELSEWHERE CLASSIFIED (7) GERD with stricture Code(s): K21.9 - GASTRO-ESOPHAGEAL REFLUX DISEASE WITHOUT ESOPHAGITIS; K22.2 - ESOPHAGEAL OBSTRUCTION (8) Hiatal hernia with GERD Code(s): K21.9 - GASTRO-ESOPHAGEAL REFLUX DISEASE WITHOUT ESOPHAGITIS; K44.9 - DIAPHRAGMATIC HERNIA WITHOUT OBSTRUCTION OR GANGRENE (9) Diverticulosis Code(s): K57.90 - DVRTCLOS OF INTEST, PART UNSP, W/O PERF OR ABSCESS W/O BLEED (10) GIB (gastrointestinal bleeding) Code(s): K92.2 - GASTROINTESTINAL HEMORRHAGE, UNSPECIFIED (11) COPD exacerbation Code(s): J44.1 - CHRONIC OBSTRUCTIVE PULMONARY DISEASE W (ACUTE) EXACERBATION (12) H/O: HTN (hypertension) Code(s): Z86.79 - PERSONAL HISTORY OF OTHER DISEASES OF THE CIRCULATORY SYSTEM (13) T2DM (type 2 diabetes mellitus) Code(s): E11.9 - TYPE 2 DIABETES MELLITUS WITHOUT COMPLICATIONS (14) Tobacco abuse Code(s): Z72.0 - TOBACCO USE (15) Family hx of colon cancer Code(s): Z80.0 - FAMILY HISTORY OF MALIGNANT NEOPLASM OF DIGESTIVE ORGANS Assessment/Plan Impression: - Petronas hematemesis appears to be self limited as her Hb is stable and she has stopped vomiting. I suspect that she has diabetic gastroparesis and perhaps a Mirna Amaya tear but gastric outlet obstruction due to an ulcer and neoplasm cannot be excluded. Given her NSAID usage and h/o Hanks's esophagus she should ideally have an EGD but her COPD exacerbation precludes doing this safely. Given her suspicious lung mass her vomiting may prove to be paraneoplastic. - FH of colon cancer and due for a repeat screening. Will again need to defer until her pulmonary situation permits - Fatty liver- is not uncommon with diabetes - GERD with Hanks's esophagus and HH, Carolineki ring- repeat surveillance if/when pulmonary status permits Plan: -- PPI drip -- Reglan IVPB -- Serial CBCs -- Trial of clear liquids -- Pulmonary consultation given her COPD exacerbation and suspicious lung nodule -- Respiratory treatment ordered -- Echocardiogram ( Blanca claims CHF)
[2019-05-23] MEDS: ALBUTEROL SO4 2.5/IPRATROPIUM 0.5 INH SOL 3 ML VIAL.NEB. NEB PRN ×2 (14:26→19:37)
[2019-05-23] MEDS: INSULIN (NOVOLOG MIX 70/30) 100 UNITS/ML MDV SQ SCH (14:28)
[2019-05-23] MEDS: SODIUM CHLORIDE 0.45% 1,000 ML IV SCH ×2 (14:29→18:25)
[2019-05-23] MEDS: PANTOPRAZOLE SODIUM 80 MG in SODIUM CHLORIDE 100 ML IVPB SCH (14:34)
[2019-05-23] MEDS: INSULIN SLIDING SCALE (NOVOLOG) 1 VIAL SQ SCH ×2 (14:37→18:24)
[2019-05-23] MEDS: METOCLOPRAMIDE HCL INJECTION 10 MG/2 ML VIAL IVPUSH SCH ×2 (14:54→20:04)
[2019-05-23] MEDS: ACETAMINOPHEN WITH CODEINE 300MG/30MG TABLET PO PRN (16:37)
[2019-05-23 19:52] LABS: HEMATOCRIT 34.8 % (32.4-45.2); LYMPH % 4.6 % (8-40); MCH 30.2 pg (25.7-33.7); MCHC 31.6 g/dl (32.0-36.0); MEAN CELL VOLUME 95.8 fl (80-96); MEAN PLT VOLUME 12.1 fl (7.5-11.1); MONO % 3.6 % (3.8-10.2); NEUT % 91.8 % (42.8-82.8); PLATELET COUNT 146 K/MM3 (134-434); RBC 3.64 M/mm3 (3.60-5.2); RDW 14.5 % (11.6-15.6); WHITE BLOOD COUNT 14.8 K/mm3 (4.0-10.0)
[2019-05-23] MEDS: methylPREDNISolone NA SUCC 40 MG/1 ML VIAL IVPUSH SCH (20:02)
[2019-05-23 20:27] LABS: BLOOD UREA NITROGEN 49.4 mg/dL (7-18); CALCIUM 8.8 mg/dL (8.5-10.1); CREATININE 1.5 mg/dL (0.55-1.3); N-TERMINAL BNP 2943.9 pg/ml (5-450); POTASSIUM 3.4 mmol/L (3.5-5.1)
[2019-05-23] MEDS: LATANOPROST 0.005% OPHTH SOLN 2.5ML BOTTLE OU SCH (21:45)
[2019-05-23] MEDS: BRIMONIDINE TARTRATE 0.2% OPHTHALMIC 5 ML BOTTLE OU SCH (21:45)
[2019-05-23] MEDS: TIMOLOL 0.5% OPHTHALMIC SOL 5 ML BOTTLE OU SCH (21:46)
[2019-05-23] MEDS ORDERED: PANTOPRAZOLE SODIUM 40 MG VIAL IVPUSH SCH (22:00)
[2019-05-24] MEDS: INSULIN SLIDING SCALE (NOVOLOG) 1 VIAL SQ SCH ×6 (01:05→23:48)
[2019-05-24] MEDS: PANTOPRAZOLE SODIUM 80 MG in SODIUM CHLORIDE 100 ML IVPB SCH ×2 (01:08→10:06)
[2019-05-24] MEDS: METOCLOPRAMIDE HCL INJECTION 10 MG/2 ML VIAL IVPUSH SCH ×4 (04:10→21:17)
[2019-05-24] MEDS: methylPREDNISolone NA SUCC 40 MG/1 ML VIAL IVPUSH SCH ×3 (04:13→19:40)
[2019-05-24] MEDS: INSULIN (NOVOLOG MIX 70/30) 100 UNITS/ML MDV SQ SCH (06:06)
[2019-05-24] MEDS ORDERED: INSULIN (NOVOLOG) ASPART 100 UNITS/ML 10ML VIAL ONE (06:14)
[2019-05-24] MEDS: ALBUTEROL SO4 2.5/IPRATROPIUM 0.5 INH SOL 3 ML VIAL.NEB. NEB PRN ×3 (07:30→15:59)
[2019-05-24 08:16] LABS: BASO % 0.1 % (0-2.0); HEMATOCRIT 36.1 % (32.4-45.2); HEMOGLOBIN 11.6 GM/dL (10.7-15.3); LYMPH % 2.8 % (8-40); MCH 30.2 pg (25.7-33.7); MCHC 32.1 g/dl (32.0-36.0); MEAN CELL VOLUME 94.1 fl (80-96); MEAN PLT VOLUME 11.2 fl (7.5-11.1); MONO % 1.1 % (3.8-10.2); PLATELET COUNT 161 K/MM3 (134-434); RBC 3.84 M/mm3 (3.60-5.2); WHITE BLOOD COUNT 16.4 K/mm3 (4.0-10.0)
[2019-05-24 08:48] LABS: BLOOD UREA NITROGEN 38.6 mg/dL (7-18); CALCIUM 8.5 mg/dL (8.5-10.1); CREATININE 1.1 mg/dL (0.55-1.3); POTASSIUM 3.3 mmol/L (3.5-5.1)
[2019-05-24] MEDS: amLODIPine BESYLATE 5 MG TABLET (FP) PO SCH (10:02)
[2019-05-24] MEDS: BRIMONIDINE TARTRATE 0.2% OPHTHALMIC 5 ML BOTTLE OU SCH ×2 (10:07→21:24)
[2019-05-24] MEDS: SODIUM CHLORIDE 0.45% 1,000 ML IV SCH (10:07)
[2019-05-24] MEDS: TIMOLOL 0.5% OPHTHALMIC SOL 5 ML BOTTLE OU SCH ×2 (10:07→21:24)
[2019-05-24] MEDS ORDERED: SODIUM CHLORIDE 0.45% 1,000 ML IV SCH (11:00)
--- NOTE | 2019-05-24 11:00 | PN.GI ---
GI Progress Note Subjective: GI NOte: Breathing much more comfortably. No longer vomiting. HbA21C is > 11. Na still 155. Looks dry - Objective Vital Signs: Vital Signs Temperature 98.1 F 05/24/19 06:00 Pulse Rate 104 H 05/24/19 06:00 Respiratory Rate 18 05/24/19 06:00 Blood Pressure 134/50 L 05/24/19 06:00 O2 Sat by Pulse Oximetry (%) 96 05/23/19 20:40 CBC,CMP WBC 16.4 K/mm3 (4.0-10.0) H 05/24/19 07:40 RBC 3.84 M/mm3 (3.60-5.2) 05/24/19 07:40 Hgb 11.6 GM/dL (10.7-15.3) 05/24/19 07:40 Hct 36.1 % (32.4-45.2) 05/24/19 07:40 MCV 94.1 fl (80-96) 05/24/19 07:40 MCH 30.2 pg (25.7-33.7) 05/24/19 07:40 MCHC 32.1 g/dl (32.0-36.0) 05/24/19 07:40 RDW 14.0 % (11.6-15.6) 05/24/19 07:40 Plt Count 161 K/MM3 (134-434) 05/24/19 07:40 MPV 11.2 fl (7.5-11.1) H 05/24/19 07:40 Absolute Neuts (auto) 15.7 K/mm3 (1.5-8.0) H 05/24/19 07:40 Total Counted 100 05/23/19 19:24 Neutrophils % 96.0 % (42.8-82.8) H 05/24/19 07:40 Neutrophils % (Manual) 95.0 % (42.8-82.8) H 05/23/19 19:24 Band Neutrophils % 9.1 % 05/22/19 08:50 Lymphocytes % 2.8 % (8-40) L D 05/24/19 07:40 Lymphocytes % (Manual) 5.0 % (8-40) L D 05/23/19 19:24 Monocytes % 1.1 % (3.8-10.2) L 05/24/19 07:40 Monocytes % (Manual) 2 % (3.8-10.2) L D 05/22/19 08:50 Eosinophils % 0.0 % (0-4.5) 05/24/19 07:40 Eosinophils % (Manual) 0.0 % (0-4.5) 05/22/19 08:50 Basophils % 0.1 % (0-2.0) D 05/24/19 07:40 Basophils % (Manual) 0.0 % (0-2.0) 05/22/19 08:50 Myelocytes % (Man) 0 % (0-2) 05/22/19 08:50 Promyelocytes % (Man) 0 % (0-2) 05/22/19 08:50 Blast Cells % (Manual) 0 % (0-0) 05/22/19 08:50 Nucleated RBC % 0 % (0-0) 05/24/19 07:40 Metamyelocytes 0 % (0-2) 05/22/19 08:50 Hypochromia 0 05/22/19 08:50 Toxic Granulation 1+ 05/22/19 08:50 Platelet Estimate Decreased 05/22/19 08:50 Polychromasia 1+ 05/22/19 08:50 Poikilocytosis 1+ 05/22/19 08:50 Anisocytosis 1+ 05/22/19 08:50 Microcytosis 1+ 05/22/19 08:50 Macrocytosis 0 05/22/19 08:50 Tear Drop Cells 1+ 05/22/19 08:50 Ovalocytes 1+ 05/22/19 08:50 Buckeye Cells 1+ 05/22/19 08:50 Retic Count 0.79 % (0.5-1.5) 05/24/19 07:40 Sodium 155 mmol/L (136-145) H 05/24/19 07:40 Potassium 3.3 mmol/L (3.5-5.1) L 05/24/19 07:40 Chloride 118 mmol/L (98-107) H 05/24/19 07:40 Carbon Dioxide 30 mmol/L (21-32) 05/24/19 07:40 Anion Gap 7 MMOL/L (8-16) L 05/24/19 07:40 BUN 38.6 mg/dL (7-18) H 05/24/19 07:40 Creatinine 1.1 mg/dL (0.55-1.3) 05/24/19 07:40 Est GFR (CKD-EPI)AfAm 53.39 05/24/19 07:40 Est GFR (CKD-EPI)NonAf 46.07 05/24/19 07:40 POC Glucometer 184 UNITS (80-120) 05/24/19 06:02 Random Glucose 134 mg/dL (74-106) H 05/24/19 07:40 Hemoglobin A1c % 11.4 % (4.2-6.3) H 05/24/19 07:40 Lactic Acid 1.1 mmol/L (0.4-2.0) 05/22/19 08:46 Calcium 8.5 mg/dL (8.5-10.1) 05/24/19 07:40 Magnesium 2.3 mg/dL (1.8-2.4) 05/23/19 07:10 Iron 19 ug/dL (50-175) L 05/24/19 07:40 TIBC 140 ug/dL (250-450) L 05/24/19 07:40 Iron Saturation 13 % (17.5-39) L 05/24/19 07:40 Unsaturated IBC 121 ug/dL (200-275) L 05/24/19 07:40 Ferritin 891.6 ng/ml (8-388) H 05/24/19 07:40 Total Bilirubin 0.5 mg/dL (0.2-1) 05/22/19 08:46 AST 55 U/L (15-37) H 05/22/19 08:46 ALT 31 U/L (13-61) 05/22/19 08:46 Alkaline Phosphatase 119 U/L (45-117) H 05/22/19 08:46 Troponin I 0.16 ng/ml (0.00-0.05) H 05/23/19 19:24 C-Reactive Protein 18.4 MG/DL (0.00-0.3) H 05/24/19 07:40 B-Natriuretic Peptide 2943.9 pg/ml (5-450) H 05/23/19 19:24 Total Protein 5.7 g/dl (6.4-8.2) L 05/22/19 08:46 Albumin 2.4 g/dl (3.4-5.0) L 05/22/19 08:46 Lipase 23 U/L (73-393) L 05/22/19 08:46 Constitutional: Calm Respiratory: Yes: Rhonchi (bilaterally) Gastrointestinal Inspection: Yes: Distention ...Auscultate: Yes: Hypoactive Bowel Sounds ...Palpate: Yes: Soft, Other (nontender) ...Percussion: Yes: Tympanitic Labs: CBC, BMP 05/24/19 07:40 05/24/19 07:40 INR, PTT INR 0.88 (0.83-1.09) 05/22/19 08:50 Assessment/Plan Impression: - Hematemesis self limited due to diabetic gastroparesis and perhaps a Mirna Amaya. Oral intake poor. - FH of colon cancer and due for a repeat screening. 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; K31.84 - GASTROPARESIS (2) Hematemesis with nausea Code(s): K92.0 - HEMATEMESIS (3) Epigastric pain Code(s): R10.13 - EPIGASTRIC PAIN (4) Cavitating mass of lung Code(s): J98.4 - OTHER DISORDERS OF LUNG (5) Barretts esophagus Code(s): K22.70 - HANKS'S ESOPHAGUS WITHOUT DYSPLASIA (6) Adrenal adenoma Code(s): D35.00 - BENIGN NEOPLASM OF UNSPECIFIED ADRENAL GLAND (7) Fatty liver Code(s): K76.0 - FATTY (CHANGE OF) LIVER, NOT ELSEWHERE CLASSIFIED (8) GERD with stricture Code(s): K21.9 - GASTRO-ESOPHAGEAL REFLUX DISEASE WITHOUT ESOPHAGITIS; K22.2 - ESOPHAGEAL OBSTRUCTION (9) Hiatal hernia with GERD Code(s): K21.9 - GASTRO-ESOPHAGEAL REFLUX DISEASE WITHOUT ESOPHAGITIS; K44.9 - D IAPHRAGMATIC HERNIA WITHOUT OBSTRUCTION OR GANGRENE (10) Diverticulosis Code(s): K57.90 - DVRTCLOS OF INTEST, PART UNSP, W/O PERF OR ABSCESS W/O BLEED (11) GIB (gastrointestinal bleeding) Code(s): K92.2 - GASTROINTESTINAL HEMORRHAGE, UNSPECIFIED (12) COPD exacerbation Code(s): J44.1 - CHRONIC OBSTRUCTIVE PULMONARY DISEASE W (ACUTE) EXACERBATION (13) H/O: HTN (hypertension) Code(s): Z86.79 - PERSONAL HISTORY OF OTHER DISEASES OF THE CIRCULATORY SYSTEM (14) T2DM (type 2 diabetes mellitus) Code(s): E11.9 - TYPE 2 DIABETES MELLITUS WITHOUT COMPLICATIONS (15) Tobacco abuse Code(s): Z72.0 - TOBACCO USE (16) Family hx of colon cancer Code(s): Z80.0 - FAMILY HISTORY OF MALIGNANT NEOPLASM OF DIGESTIVE ORGANS
[2019-05-24] MEDS ORDERED: POTASSIUM CHLORIDE 20 MEQ PREMIX IVPB 100 ML IVPB ONE (11:16)
--- NOTE | 2019-05-24 11:19 | PN ---
Progress Note, Physician Chief Complaint: remained at base line - Current Medication List Current Medications: Active Medications Acetaminophen/Codeine Phosphate (Tylenol # 3 -) 1 tab PO TID PRN PRN Reason: PAIN Last Admin: 05/23/19 16:37 Dose: 1 tab Documented by: Albuterol/Ipratropium (Duoneb -) 1 amp NEB Q4H PRN PRN Reason: ASTHMA Last Admin: 05/24/19 11:07 Dose: 1 amp Documented by: Alprazolam (Xanax) 0.5 mg PO Q8H PRN PRN Reason: ANXIETY Amlodipine Besylate (Norvasc -) 5 mg PO DAILY [facility] Last Admin: 05/24/19 10:02 Dose: 5 mg Documented by: Brimonidine Tartrate (Alphagan 0.2% -) 1 drop OU BID [facility] Last Admin: 05/24/19 10:07 Dose: 1 drop Documented by: Piperacillin Sod/Tazobactam (Sod 3.375 gm/ Dextrose) 50 mls @ 100 mls/hr IVPB Q8H-IV [facility]; Protocol Sodium Chloride (1/2 Normal Saline) 1,000 mls @ 100 mls/hr IV ASDIR [facility] Insulin Aspart (Novolog Mix 70/30 Vial) 8 units SQ ACBK [facility] Last Admin: 05/24/19 06:06 Dose: 8 units Documented by: Insulin Aspart (Novolog Vial Sliding Scale -) 1 vial SQ Q6HPO [facility]; Protocol Last Admin: 05/24/19 06:03 Dose: 8 units Documented by: Latanoprost (Xalatan 0.005% Eye Drops -) 1 drop OU HS [facility] Last Admin: 05/23/19 21:45 Dose: 1 drp Documented by: Methylprednisolone Sodium Succinate (Solu-Medrol -) 40 mg IVPUSH Q8H-IV [facility] Last Admin: 05/24/19 10:03 Dose: 40 mg Documented by: Metoclopramide HCl (Reglan Injection -) 10 mg IVPUSH Q6H-IV [facility] Last Admin: 05/24/19 10:03 Dose: 10 mg Documented by: Ondansetron HCl (Zofran Injection) 4 mg IVPUSH Q6H PRN PRN Reason: NAUSEA Pantoprazole Sodium (Protonix Iv) 40 mg IVPUSH BID [facility] Pilocarpine HCl (Pilostat 2% -) 1 drop OP BID [facility] Polyethylene Glycol (Miralax (For Daily Use) -) 17 gm PO BID [facility] Potassium Chloride (Potassium Chloride 20 Meq Premix Ivpb -) 20 meq IVPB ONCE ONE Stop: 05/24/19 11:17 Timolol Maleate (Timoptic 0.5%) 1 drop OU BID [facility] Last Admin: 05/24/19 10:07 Dose: 1 drop Documented by: - Objective Vital Signs: Vital Signs Temperature 98.1 F 05/24/19 06:00 Pulse Rate 104 H 05/24/19 06:00 Respiratory Rate 18 05/24/19 06:00 Blood Pressure 134/50 L 05/24/19 06:00 O2 Sat by Pulse Oximetry (%) 96 05/23/19 20:40 Elderly Frail F in respiratory distress HEENT: Mm dry, no anemia NECK: No JVd No Bruit CHEST: Crepts and wheezing (minimal) CVS: S1S2 Tachycardia ABD: no distention, epigastric tenderness BS + EXT: Trace edema, Pulses + TURBINE TECHNICIAN: AOX3 non focal Labs: CBC, BMP 05/24/19 07:40 05/24/19 07:40 INR, PTT INR 0.88 (0.83-1.09) 05/22/19 08:50 Problem List - Problems (1) Hematemesis with nausea Assessment/Plan: Considering previous EGD findings possibility of upper GI bleed H/H stable, GI input appreciated, clear liquid diet, PPI infusion at present too de compensated for EGD F/U serial CBC Code(s): K92.0 - HEMATEMESIS (2) Hiatal hernia with GERD Assessment/Plan: Cont PPI EGD onse stable Code(s): K21.9 - GASTRO-ESOPHAGEAL REFLUX DISEASE WITHOUT ESOPHAGITIS; K44.9 - DIAPHRAGMATIC HERNIA WITHOUT OBSTRUCTION OR GANGRENE (3) COPD exacerbation Assessment/Plan: Cont Duoneb add advair, ICV steroid F/U Pulmonary consult conr Siomara Code(s): J44.1 - CHRONIC OBSTRUCTIVE PULMONARY DISEASE W (ACUTE) EXACERBATION (4) H/O: HTN (hypertension) Assessment/Plan: Cont Home meds Code(s): Z86.79 - PERSONAL HISTORY OF OTHER DISEASES OF THE CIRCULATORY SYSTEM (5) Elevated troponin Assessment/Plan: Previous NST -ve in 2017 most likely stress related F/U Trop I and ECHO Code(s): R79.89 - OTHER SPECIFIED ABNORMAL FINDINGS OF BLOOD CHEMISTRY (6) SOB (shortness of breath) Assessment/Plan: H/O Diastolic HF and COPD will F/U ECHO and Pro BNP Code(s): R06.02 - SHORTNESS OF BREATH (7) Hypernatremia Assessment/Plan: 1/2 NS F/U BMP in PM Code(s): E87.0 - HYPEROSMOLALITY AND HYPERNATREMIA (8) Cavitating mass of lung Assessment/Plan: Rt Upper lobe nodule with central cavitation will F/U Pulmonary recoommondations. Code(s): J98.4 - OTHER DISORDERS OF LUNG (9) CAIN (acute kidney injury) Assessment/Plan: Due to dehydartion F/U BMP after Hydration Code(s): N17.9 - ACUTE KIDNEY FAILURE, UNSPECIFIED (10) Anxiety Assessment/Plan: cont Xanax 0.5 mg PRN Code(s): F41.9 - ANXIETY DISORDER, UNSPECIFIED
[2019-05-24 11:34] LABS: PLATELET ESTIMATE ADEQUATE
[2019-05-24] MEDS: KCL 10 MEQ IVPB 10 MEQ/100 ML INFUS.BAG IVPB SCH ×2 (12:25→14:17)
--- NOTE | 2019-05-24 14:15 | CON.ID ---
Consult Consult Specialty:: infectious diseases Referred by:: Reason for Consultation:: leukocytosis - History of Present Illness Chief Complaint: weakness,lethargy History of Present Illness: 83 yrs old F frail, with h/o T2DM, advanced COPD on Home O2 ex smoker, HTN, Diastolic Hf, chronic back pain and anxiety, which revealed a a non- obstructing Schatzki ring above a hiatal hernia the biopsies of which revealed Hanks's metaplasia,came to the hospital because of coffee ground emesis . son in the room who is giving the history according to th sone patient was admitted last week in the hospital with it seems pneumonia and then was send to [facility] where she dveloped the coffee ground emesis and was send back here currently the patient is tired,but awake and alert gi is on the case - History Source History Provided By: Family Member Limitations to Obtaining History: Clinical Condition - Past Medical History Cardio/Vascular: Yes: CHF, HTN Pulmonary: Yes: COPD, O2 Dependent Gastrointestinal: Yes: Gastritis, GERD Hepatobiliary: Yes: Other (fatty liver) ...: No Musculoskeletal: Yes: Chronic low back pain Endocrine: Yes: Diabetes Mellitus - Past Surgical History Past Surgical History: Yes: Colonoscopy, Hysterectomy Additional Surgical History: RLE vascular surgery - Alcohol/Substance Use Hx Alcohol Use: No History of Substance Use: reports: None - Smoking History Smoking history: Former smoker Have you smoked in the past 12 months: Yes Aproximately how many cigarettes per day: 2 If you are a former smoker, when did you quit?: 10 days ago - Social History Usual Living Arrangement: Alone ADL: Independent 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 History of Recent Travel: No Home Medications - Allergies Allergies/Adverse Reactions: Allergies Allergy/AdvReac Type Severity Reaction Status Date / Time No Known Allergies Allergy Verified 05/22/19 09:42 - Home Medications Home Medications: Ambulatory Orders Amlodipine Besylate [Norvasc -] 5 mg PO DAILY 03/22/14 Losartan Potassium 100 mg PO DAILY 03/23/14 Acetaminophen W/ Codeine #3 [Tylenol # 3 -] 1 tab PO TID PRN 04/20/16 Brimonidine Tartrate/Timolol [Combigan 0.2%-0.5% Eye Drops] 1 drop OU DAILY 04/20/16 Insulin (Novolog 70/30) [Novolog Mix 70/30 Flexpen -] 8 units SQ DAILY 04/20/16 Latanoprost 0.005% Eye Drops [Xalatan 0.005% Eye Drops -] 1 drop OU HS 04/20/16 Alprazolam [Xanax] 0.5 mg PO TID PRN 07/26/16 Glipizide 5 mg PO DAILY 01/26/17 Pilocarpine 2% [Pilostat 2% -] 1 drop OP BID 10/03/18 Famotidine [Pepcid -] 20 mg PO BID #60 tablet 10/08/18 Aa/Hydrolyzed Collagen, Whey [Lps 15-30 Liquid] 30 ml PO BID 05/22/19 Albuterol 2.5/Ipratropium 0.5 [Duoneb -] 1 amp NEB BID PRN 05/22/19 Ascorbic Acid [Vitamin C] 500 mg PO DAILY 05/22/19 Dorzolamide HCl/Pf [Dorzolamide 2% Eye Drop] 1 drop OP BID 05/22/19 Insulin Lispro [Admelog Solostar] 100 unit SQ ASDIR 05/22/19 Multivitamins [Tab-A-Vit -] 1 tab PO DAILY 05/22/19 Polyethylene Glycol 3350 [Miralax (For Daily Use) -] 17 gm PO DAILY 05/22/19 Prednisolone [Millipred] 10 mg PO DAILY 05/22/19 Sennosides [Senna] 2 tab PO PRN 05/22/19 Silver Sulfadiazine 1% Top Cr [Silvadene -] 1 applic TP DAILY 05/22/19 Zinc Sulfate 220 mg PO DAILY 05/22/19 Review of Systems - Review of Systems Constitutional: reports: No Symptoms Eyes: reports: No Symptoms HENT: reports: No Symptoms Neck: reports: No Symptoms Cardiovascular: reports: No Symptoms Respiratory: reports: No Symptoms Gastrointestinal: reports: Other (coffee ground emesis) Genitourinary: reports: No Symptoms Musculoskeletal: reports: No Symptoms Integumentary: reports: No Symptoms Neurological: reports: No Symptoms Endocrine: reports: No Symptoms Hematology/Lymphatic: reports: No Symptoms Psychiatric: reports: No Symptoms Physical Exam Vital Signs: Vital Signs Temperature 97.4 F L 05/24/19 13:32 Pulse Rate 103 H 05/24/19 13:32 Respiratory Rate 18 05/24/19 13:32 Blood Pressure 109/61 05/24/19 13:32 O2 Sat by Pulse Oximetry (%) 96 05/23/19 20:40 Constitutional: Yes: Calm, Mild Distress Eyes: Yes: Conjunctiva Clear HENT: Yes: Atraumatic, Normocephalic Neck: Yes: Supple, Trachea Midline Cardiovascular: Yes: Regular Rate and Rhythm Respiratory: Yes: Regular, On Nasal O2 Gastrointestinal: Yes: Soft, Hypoactive Bowel Sounds Musculoskeletal: Yes: WNL Extremities: Yes: WNL Neurological: Yes: Alert, Oriented Psychiatric: Yes: Alert, Oriented Labs: CBC, BMP 05/24/19 07:40 05/24/19 07:40 Assessment/Plan 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; K31.84 - GASTROPARESIS (2) Hematemesis with nausea Code(s): K92.0 - HEMATEMESIS (3) Epigastric pain Code(s): R10.13 - EPIGASTRIC PAIN (4) Cavitating mass of lung Code(s): J98.4 - OTHER DISORDERS OF LUNG (5) Barretts esophagus Code(s): K22.70 - HANKS'S ESOPHAGUS WITHOUT DYSPLASIA (6) Adrenal adenoma Code(s): D35.00 - BENIGN NEOPLASM OF UNSPECIFIED ADRENAL GLAND (7) Fatty liver Code(s): K76.0 - FATTY (CHANGE OF) LIVER, NOT ELSEWHERE CLASSIFIED (8) GERD with stricture Code(s): K21.9 - GASTRO-ESOPHAGEAL REFLUX DISEASE WITHOUT ESOPHAGITIS; K22.2 - ESOPHAGEAL OBSTRUCTION (9) Hiatal hernia with GERD Code(s): K21.9 - GASTRO-ESOPHAGEAL REFLUX DISEASE WITHOUT ESOPHAGITIS; K44.9 - DIAPHRAGMATIC HERNIA WITHOUT OBSTRUCTION OR GANGRENE (10) Diverticulosis Code(s): K57.90 - DVRTCLOS OF INTEST, PART UNSP, W/O PERF OR ABSCESS W/O BLEED (11) GIB (gastrointestinal bleeding) Code(s): K92.2 - GASTROINTESTINAL HEMORRHAGE, UNSPECIFIED (12) COPD exacerbation Code(s): J44.1 - CHRONIC OBSTRUCTIVE PULMONARY DISEASE W (ACUTE) EXACERBATION (13) H/O: HTN (hypertension) Code(s): Z86.79 - PERSONAL HISTORY OF OTHER DISEASES OF THE CIRCULATORY SYSTEM (14) T2DM (type 2 diabetes mellitus) Code(s): E11.9 - TYPE 2 DIABETES MELLITUS WITHOUT COMPLICATIONS (15) Tobacco abuse Code(s): Z72.0 - TOBACCO USE (16) Family hx of colon cancer Code(s): Z80.0 - FAMILY HISTORY OF MALIGNANT NEOPLASM OF DIGESTIVE ORGANS patient was started on zosyn plan will hold off on abx imaging studies looked at will send urine cx rest as per gi monitor wbc
[2019-05-24] MEDS: ALPRAZolam 1 MG TABLET PO PRN (16:28)
--- NOTE | 2019-05-24 18:27 | CONSULT ---
Consult Consult Specialty:: Nephrology Reason for Consultation:: CAIN and hypernatremia - History of Present Illness Chief Complaint: coffee ground emesis History of Present Illness: Pt is an 83 year old female with pmhx of dm, copd, htn, chf, anxiety and back pain who presents with coffee ground emesis. She was admitted for treatment. She was found to have elevated sodium and I was called to evaluate her. She denies shortness of breath. She denies chest pain. SHe denies fevers or chills. SHe has decreased appetite. - History Source History Provided By: Patient - Past Medical History Cardio/Vascular: Yes: CHF, HTN Pulmonary: Yes: COPD, O2 Dependent Gastrointestinal: Yes: Gastritis, GERD Hepatobiliary: Yes: Other (fatty liver) ...: No Musculoskeletal: Yes: Chronic low back pain Endocrine: Yes: Diabetes Mellitus - Past Surgical History Past Surgical History: Yes: Colonoscopy, Hysterectomy Additional Surgical History: RLE vascular surgery - Alcohol/Substance Use Hx Alcohol Use: No History of Substance Use: reports: None - Smoking History Smoking history: Former smoker Have you smoked in the past 12 months: Yes Aproximately how many cigarettes per day: 2 If you are a former smoker, when did you quit?: 10 days ago - Social History Usual Living Arrangement: Alone ADL: Independent 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 History of Recent Travel: No Home Medications - Allergies Allergies/Adverse Reactions: Allergies Allergy/AdvReac Type Severity Reaction Status Date / Time No Known Allergies Allergy Verified 05/22/19 09:42 - Home Medications Home Medications: Ambulatory Orders Amlodipine Besylate [Norvasc -] 5 mg PO DAILY 03/22/14 Losartan Potassium 100 mg PO DAILY 03/23/14 Acetaminophen W/ Codeine #3 [Tylenol # 3 -] 1 tab PO TID PRN 04/20/16 Brimonidine Tartrate/Timolol [Combigan 0.2%-0.5% Eye Drops] 1 drop OU DAILY 04/20/16 Insulin (Novolog 70/30) [Novolog Mix 70/30 Flexpen -] 8 units SQ DAILY 04/20/16 Latanoprost 0.005% Eye Drops [Xalatan 0.005% Eye Drops -] 1 drop OU HS 04/20/16 Alprazolam [Xanax] 0.5 mg PO TID PRN 07/26/16 Glipizide 5 mg PO DAILY 01/26/17 Pilocarpine 2% [Pilostat 2% -] 1 drop OP BID 10/03/18 Famotidine [Pepcid -] 20 mg PO BID #60 tablet 10/08/18 Aa/Hydrolyzed Collagen, Whey [Lps 15-30 Liquid] 30 ml PO BID 05/22/19 Albuterol 2.5/Ipratropium 0.5 [Duoneb -] 1 amp NEB BID PRN 05/22/19 Ascorbic Acid [Vitamin C] 500 mg PO DAILY 05/22/19 Dorzolamide HCl/Pf [Dorzolamide 2% Eye Drop] 1 drop OP BID 05/22/19 Insulin Lispro [Admelog Solostar] 100 unit SQ ASDIR 05/22/19 Multivitamins [Tab-A-Vit -] 1 tab PO DAILY 05/22/19 Polyethylene Glycol 3350 [Miralax (For Daily Use) -] 17 gm PO DAILY 05/22/19 Prednisolone [Millipred] 10 mg PO DAILY 05/22/19 Sennosides [Senna] 2 tab PO PRN 05/22/19 Silver Sulfadiazine 1% Top Cr [Silvadene -] 1 applic TP DAILY 05/22/19 Zinc Sulfate 220 mg PO DAILY 05/22/19 Family Medical History Family History: Denies Review of Systems - Review of Systems Constitutional: reports: Malaise Eyes: reports: No Symptoms HENT: reports: No Symptoms Neck: reports: No Symptoms Cardiovascular: reports: No Symptoms Gastrointestinal: reports: Vomiting, Vomiting Blood Genitourinary: reports: No Symptoms Musculoskeletal: reports: No Symptoms Integumentary: reports: No Symptoms Endocrine: reports: No Symptoms Physical Exam Vital Signs: Vital Signs Temperature 97.4 F L 05/24/19 13:32 Pulse Rate 103 H 05/24/19 13:32 Respiratory Rate 18 05/24/19 13:32 Blood Pressure 109/61 05/24/19 13:32 O2 Sat by Pulse Oximetry (%) 96 05/23/19 20:40 Constitutional: Yes: Calm Eyes: Yes: Conjunctiva Clear HENT: Yes: Atraumatic Neck: Yes: Supple Cardiovascular: Yes: S1, S2 Respiratory: Yes: CTA Bilaterally Gastrointestinal: Yes: Soft Renal/: Yes: WNL Musculoskeletal: Yes: WNL Edema: No Neurological: Yes: Oriented Psychiatric: Yes: Oriented Labs: CBC, BMP 05/24/19 07:40 05/24/19 07:40 Problem List - Problems (1) Hypernatremia Code(s): E87.0 - HYPEROSMOLALITY AND HYPERNATREMIA (2) CAIN (acute kidney injury) Code(s): N17.9 - ACUTE KIDNEY FAILURE, UNSPECIFIED Assessment/Plan Current Medications Generic Name Dose Route Start Last Admin Trade Name Freq PRN Reason Stop Dose Admin Acetaminophen/Codeine Phosphate 1 tab 05/23/19 09:49 05/23/19 16:37 Tylenol # 3 - PO 1 tab TID PRN Administration PAIN Albuterol/Ipratropium 1 amp 05/23/19 13:27 05/24/19 15:59 Duoneb - NEB 1 amp Q4H PRN Administration ASTHMA Alprazolam 0.5 mg 05/23/19 18:55 05/24/19 16:28 Xanax PO 0.5 mg Q8H PRN Administration ANXIETY Amlodipine Besylate 5 mg 05/23/19 10:00 05/24/19 10:02 Norvasc - PO 5 mg DAILY [facility] Administration Brimonidine Tartrate 1 drop 05/23/19 22:00 05/24/19 10:07 Alphagan 0.2% - OU 1 drop BID [facility]O Administration Sodium Chloride 1,000 mls @ 100 mls/hr 05/24/19 11:00 05/24/19 12:26 1/2 Normal Saline IV 100 mls/hr ASDIR [facility] Administration Insulin Aspart 8 units 05/23/19 11:00 05/24/19 06:06 Novolog Mix 70/30 Vial SQ 8 units ACBK [facility] Administration Insulin Aspart 1 vial 05/23/19 12:00 05/24/19 12:38 Novolog Vial Sliding Scale - SQ Not Given Q6HPO [facility] Protocol Latanoprost 1 drop 05/23/19 22:00 05/23/19 21:45 Xalatan 0.005% Eye Drops - OU 1 drp HS [facility] Administration Methylprednisolone Sodium Succinate 40 mg 05/23/19 19:00 05/24/19 10:03 Solu-Medrol - IVPUSH 40 mg Q8H-IV [facility] Administration Metoclopramide HCl 10 mg 05/23/19 15:00 05/24/19 14:37 Reglan Injection - IVPUSH 10 mg Q6H-IV [facility] Administration Ondansetron HCl 4 mg 05/23/19 09:52 Zofran Injection IVPUSH Q6H PRN NAUSEA Pantoprazole Sodium 40 mg 05/24/19 22:00 Protonix Iv IVPUSH BID [facility] Pilocarpine HCl 1 drop 05/23/19 10:00 Pilostat 2% - OP BID [facility] Polyethylene Glycol 17 gm 05/24/19 22:00 Miralax (For Daily Use) - PO BID [facility] Timolol Maleate 1 drop 05/23/19 22:00 05/24/19 10:07 Timoptic 0.5% OU 1 drop BID [facility] Administration Laboratory Tests 05/23/19 05/24/19 19:24 07:40 Sodium 155 H 155 H Potassium 3.3 L Creatinine 1.5 H 1.1 Impression 1. CAIN 2. hypernatremia 3. hypokalemia 4. dm 5. htn 6. coffee ground emesis Plan - cont 1/2 ns and add potassium to fluids - replace potassium - GI follow up - monitor sodium levels - encourage free water intake
[2019-05-24] MEDS: PANTOPRAZOLE SODIUM 40 MG VIAL IVPUSH SCH (21:17)
[2019-05-24] MEDS: POT IV SCH (21:20)
[2019-05-24] MEDS: SODIUM CHLORIDE IV SCH (21:20)
[2019-05-24] MEDS: LATANOPROST 0.005% OPHTH SOLN 2.5ML BOTTLE OU SCH (21:24)
[2019-05-24] MEDS: POLYETHYLENE GLYCOL 3350 119 GM BTL PO SCH (22:15)
[2019-05-25] MEDS: methylPREDNISolone NA SUCC 40 MG/1 ML VIAL IVPUSH SCH ×3 (01:36→18:18)
[2019-05-25] MEDS: METOCLOPRAMIDE HCL INJECTION 10 MG/2 ML VIAL IVPUSH SCH ×4 (04:00→21:41)
[2019-05-25] MEDS: INSULIN SLIDING SCALE (NOVOLOG) 1 VIAL SQ SCH ×3 (06:18→17:52)
[2019-05-25] MEDS: INSULIN (NOVOLOG MIX 70/30) 100 UNITS/ML MDV SQ SCH (06:31)
[2019-05-25] MEDS: ALBUTEROL SO4 2.5/IPRATROPIUM 0.5 INH SOL 3 ML VIAL.NEB. NEB PRN (07:20)
--- NOTE | 2019-05-25 09:47 | PN ---
Progress Note, Physician Chief Complaint: Admitted with GI bleeding No active bleeding Very dehydrated ,hypokalemic and hypernatremic - Current Medication List Current Medications: Active Medications Acetaminophen/Codeine Phosphate (Tylenol # 3 -) 1 tab PO TID PRN PRN Reason: PAIN Last Admin: 05/23/19 16:37 Dose: 1 tab Documented by: Albuterol/Ipratropium (Duoneb -) 1 amp NEB Q4H PRN PRN Reason: ASTHMA Last Admin: 05/25/19 07:20 Dose: 1 amp Documented by: Alprazolam (Xanax) 0.5 mg PO Q8H PRN PRN Reason: ANXIETY Last Admin: 05/24/19 16:28 Dose: 0.5 mg Documented by: Amlodipine Besylate (Norvasc -) 5 mg PO DAILY [facility] Last Admin: 05/24/19 10:02 Dose: 5 mg Documented by: Brimonidine Tartrate (Alphagan 0.2% -) 1 drop OU BID [facility] Last Admin: 05/24/19 21:24 Dose: 1 drop Documented by: Potassium Chloride/Sodium Chloride (1/2ns+20meq Kcl) 1,000 meq in 50,000 mls @ 83 mls/hr IV ASDIR [facility] Last Admin: 05/24/19 21:20 Dose: 83 mls/hr Documented by: Insulin Aspart (Novolog Mix 70/30 Vial) 8 units SQ ACBK [facility] Last Admin: 05/25/19 06:31 Dose: 8 units Documented by: Insulin Aspart (Novolog Vial Sliding Scale -) 1 vial SQ Q6HPO [facility]; Protocol Last Admin: 05/25/19 06:18 Dose: Not Given Documented by: Latanoprost (Xalatan 0.005% Eye Drops -) 1 drop OU HS [facility] Last Admin: 05/24/19 21:24 Dose: 1 drp Documented by: Methylprednisolone Sodium Succinate (Solu-Medrol -) 40 mg IVPUSH Q8H-IV [facility] Last Admin: 05/25/19 01:36 Dose: 40 mg Documented by: Metoclopramide HCl (Reglan Injection -) 10 mg IVPUSH Q6H-IV [facility] Last Admin: 05/25/19 04:00 Dose: 10 mg Documented by: Ondansetron HCl (Zofran Injection) 4 mg IVPUSH Q6H PRN PRN Reason: NAUSEA Pantoprazole Sodium (Protonix Iv) 40 mg IVPUSH BID [facility] Last Admin: 05/24/19 21:17 Dose: 40 mg Documented by: Pilocarpine HCl (Pilostat 2% -) 1 drop OP BID [facility] Polyethylene Glycol (Miralax (For Daily Use) -) 17 gm PO BID [facility] Last Admin: 05/24/19 22:15 Dose: 17 gm Documented by: Timolol Maleate (Timoptic 0.5%) 1 drop OU BID [facility] Last Admin: 05/24/19 21:24 Dose: 1 drop Documented by: - Objective Vital Signs: Vital Signs Temperature 97.6 F 05/25/19 06:00 Pulse Rate 96 H 05/25/19 06:00 Respiratory Rate 18 05/25/19 06:00 Blood Pressure 101/54 L 05/25/19 06:00 O2 Sat by Pulse Oximetry (%) 96 05/24/19 21:00 Constitutional: Yes: Mild Distress Eyes: Yes: WNL HENT: Yes: WNL Neck: Yes: WNL Cardiovascular: Yes: WNL Respiratory: Yes: On Nasal O2 Gastrointestinal: Yes: WNL ...Rectal Exam: Yes: Deferred Edema: No Neurological: Yes: Alert Psychiatric: Yes: Alert Labs: CBC, BMP 05/24/19 07:40 05/24/19 07:40 INR, PTT INR 0.88 (0.83-1.09) 05/22/19 08:50 Assessment/Plan Continue 1/2 NS with 20 meq kcl at 80cc/hr
[2019-05-25] MEDS: PILOCARPINE 2% OPHTHALMIC SOLUTION 15 ML BOTTLE OU SCH (10:00)
[2019-05-25] MEDS: POT IV SCH (10:09)
[2019-05-25] MEDS: SODIUM CHLORIDE IV SCH (10:09)
[2019-05-25] MEDS: PANTOPRAZOLE SODIUM 40 MG VIAL IVPUSH SCH ×2 (10:10→21:41)
[2019-05-25] MEDS: amLODIPine BESYLATE 5 MG TABLET (FP) PO SCH (10:10)
[2019-05-25] MEDS: POLYETHYLENE GLYCOL 3350 119 GM BTL PO SCH ×2 (10:10→21:42)
[2019-05-25] MEDS: BRIMONIDINE TARTRATE 0.2% OPHTHALMIC 5 ML BOTTLE OU SCH ×2 (10:11→21:40)
[2019-05-25] MEDS: TIMOLOL 0.5% OPHTHALMIC SOL 5 ML BOTTLE OU SCH ×2 (10:12→21:40)
--- NOTE | 2019-05-25 10:41 | CON.PULM ---
Consult Consult Specialty:: PULMONARY Referred by:: Dr Izquierdo Reason for Consultation:: COPD, lung nodule - History of Present Illness Chief Complaint: coffee ground emesis History of Present Illness: 83yo female with h/o HTN, LV diastolic dysfunction, DM, COPD, chronic hypoxic respiratory failure, anxiety, recent admission for COPD exacerbation who was admitted with coffee ground emesis and abdominal pain. Also with shortness of breath, nonproductive cough and wheezing. No fevers, chills or sweats. She is a former long time smoker. Was noted to have a MONICA nodule last admission and now with central cavitation on current imaging. - History Source History Provided By: Patient, Medical Record Limitations to Obtaining History: Clinical Condition - Past Medical History Cardio/Vascular: Yes: CHF, HTN Pulmonary: Yes: COPD, O2 Dependent Gastrointestinal: Yes: Gastritis, GERD Hepatobiliary: Yes: Other (fatty liver) ...: No Musculoskeletal: Yes: Chronic low back pain Endocrine: Yes: Diabetes Mellitus - Past Surgical History Past Surgical History: Yes: Colonoscopy, Hysterectomy Additional Surgical History: RLE vascular surgery - Alcohol/Substance Use Hx Alcohol Use: No History of Substance Use: reports: None - Smoking History Smoking history: Former smoker Have you smoked in the past 12 months: Yes Aproximately how many cigarettes per day: 2 If you are a former smoker, when did you quit?: 10 days ago - Social History Usual Living Arrangement: Alone ADL: Independent 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 History of Recent Travel: No Home Medications - Allergies Allergies/Adverse Reactions: Allergies Allergy/AdvReac Type Severity Reaction Status Date / Time No Known Allergies Allergy Verified 05/22/19 09:42 - Home Medications Home Medications: Ambulatory Orders Amlodipine Besylate [Norvasc -] 5 mg PO DAILY 03/22/14 Losartan Potassium 100 mg PO DAILY 03/23/14 Acetaminophen W/ Codeine #3 [Tylenol # 3 -] 1 tab PO TID PRN 04/20/16 Brimonidine Tartrate/Timolol [Combigan 0.2%-0.5% Eye Drops] 1 drop OU DAILY 04/20/16 Insulin (Novolog 70/30) [Novolog Mix 70/30 Flexpen -] 8 units SQ DAILY 04/20/16 Latanoprost 0.005% Eye Drops [Xalatan 0.005% Eye Drops -] 1 drop OU HS 04/20/16 Alprazolam [Xanax] 0.5 mg PO TID PRN 07/26/16 Glipizide 5 mg PO DAILY 01/26/17 Pilocarpine 2% [Pilostat 2% -] 1 drop OP BID 10/03/18 Famotidine [Pepcid -] 20 mg PO BID #60 tablet 10/08/18 Aa/Hydrolyzed Collagen, Whey [Lps 15-30 Liquid] 30 ml PO BID 05/22/19 Albuterol 2.5/Ipratropium 0.5 [Duoneb -] 1 amp NEB BID PRN 05/22/19 Ascorbic Acid [Vitamin C] 500 mg PO DAILY 05/22/19 Dorzolamide HCl/Pf [Dorzolamide 2% Eye Drop] 1 drop OP BID 05/22/19 Insulin Lispro [Admelog Solostar] 100 unit SQ [facility] 05/22/19 Multivitamins [Tab-A-Vit -] 1 tab PO DAILY 05/22/19 Polyethylene Glycol 3350 [Miralax (For Daily Use) -] 17 gm PO DAILY 05/22/19 Prednisolone [Millipred] 10 mg PO DAILY 05/22/19 Sennosides [Senna] 2 tab PO PRN 05/22/19 Silver Sulfadiazine 1% Top Cr [Silvadene -] 1 applic TP DAILY 05/22/19 Zinc Sulfate 220 mg PO DAILY 05/22/19 Review of Systems - Review of Systems Constitutional: reports: Weakness. denies: Chills, Fever Eyes: denies: Recent Change in Vision HENT: denies: Throat Pain Neck: denies: Stiffness, Tenderness Cardiovascular: reports: Shortness of Breath. denies: Chest Pain, Edema Respiratory: reports: Cough, Wheezing. denies: Hemoptysis Gastrointestinal: denies: Abdominal Pain, Nausea, Vomiting Genitourinary: denies: Dysuria, Hematuria Neurological: denies: Headache Endocrine: denies: Unexplained Weight Loss Physical Exam Vital Sings: Vital Signs Temperature 97.6 F 05/25/19 06:00 Pulse Rate 96 H 05/25/19 06:00 Respiratory Rate 18 05/25/19 06:00 Blood Pressure 101/54 L 05/25/19 06:00 O2 Sat by Pulse Oximetry (%) 96 05/24/19 21:00 Constitutional: Yes: Mild Distress Eyes: Yes: Conjunctiva Clear, EOM Intact HENT: Yes: Atraumatic, Normocephalic Neck: Yes: Supple, Trachea Midline Cardiovascular: Yes: Regular Rate and Rhythm Respiratory: Yes: Rhonchi, Wheezes ...Clubbing: No Gastrointestinal: Yes: Normal Bowel Sounds, Soft. No: Tenderness Edema: No Neurological: Yes: Alert, Oriented Labs: CBC, BMP 05/24/19 07:40 05/24/19 07:40 Imaging - Results Chest X-ray: Report Reviewed, Image Reviewed Cat Scan: Report Reviewed, Image Reviewed (MONICA nodule, emphysematous changes, bibasilar atelectasis) Problem List - Problems (1) COPD exacerbation Code(s): J44.1 - CHRONIC OBSTRUCTIVE PULMONARY DISEASE W (ACUTE) EXACERBATION Assessment/Plan Acute COPD Exacerbation Lung Nodule likely Malignant Chronic Hypoxic Respiratory Failure LV Diastolic Dysfunction +Troponins likely Demand Ischemia HTN DM Anxiety - agree with medrol - inhaled bronchodilators - O2 to keep Spo2 >90% - would defer elective procedures until respiratory status improves - will need outpt PET scan and CT guided needle biopsy - DVT prophylaxis Thank you for this consult Deon Fleming MD
[2019-05-25] MEDS ORDERED: ALBUTEROL SO4 0.083% IH SOL 2.5 MG/3 ML VIAL.NEB. NEB PRN (10:49)
[2019-05-25] MEDS: ACETAMINOPHEN WITH CODEINE 300MG/30MG TABLET PO PRN (11:09)
[2019-05-25 11:40] LABS: BASO % 0.1 % (0-2.0); HEMATOCRIT 35.2 % (32.4-45.2); HEMOGLOBIN 11.2 GM/dL (10.7-15.3); LYMPH % 3.4 % (8-40); MCH 30.1 pg (25.7-33.7); MCHC 31.7 g/dl (32.0-36.0); MEAN PLT VOLUME 12.1 fl (7.5-11.1); MONO % 3.1 % (3.8-10.2); NEUT % 93.4 % (42.8-82.8); PLATELET COUNT 140 K/MM3 (134-434); RBC 3.71 M/mm3 (3.60-5.2); RDW 14.3 % (11.6-15.6); WHITE BLOOD COUNT 17.1 K/mm3 (4.0-10.0)
[2019-05-25] MEDS: ALBUTEROL SO4 2.5/IPRATROPIUM 0.5 INH SOL 3 ML VIAL.NEB. NEB SCH ×3 (11:48→20:29)
[2019-05-25 12:03] LABS: BLOOD UREA NITROGEN 27.7 mg/dL (7-18); CALCIUM 8.2 mg/dL (8.5-10.1); CREATININE 0.8 mg/dL (0.55-1.3); MAGNESIUM 2.2 mg/dL (1.8-2.4); POTASSIUM 3.6 mmol/L (3.5-5.1)
[2019-05-25 12:50] VITALS: BMI 18.4
--- NOTE | 2019-05-25 12:52 | PN ---
Progress Note, Physician History of Present Illness: stable no new issues - Current Medication List Current Medications: Active Medications Acetaminophen/Codeine Phosphate (Tylenol # 3 -) 1 tab PO TID PRN PRN Reason: PAIN Last Admin: 05/25/19 11:09 Dose: 1 tab Documented by: Albuterol Sulfate (Ventolin 0.083% Nebulizer Soln -) 1 amp NEB Q4H PRN PRN Reason: SHORT OF BREATH/WHEEZING Albuterol/Ipratropium (Duoneb -) 1 amp NEB RQID [facility] Last Admin: 05/25/19 11:48 Dose: 1 amp Documented by: Alprazolam (Xanax) 0.5 mg PO Q8H PRN PRN Reason: ANXIETY Last Admin: 05/24/19 16:28 Dose: 0.5 mg Documented by: Amlodipine Besylate (Norvasc -) 5 mg PO DAILY [facility] Last Admin: 05/25/19 10:10 Dose: 5 mg Documented by: Brimonidine Tartrate (Alphagan 0.2% -) 1 drop OU BID [facility] Last Admin: 05/25/19 10:11 Dose: 1 drop Documented by: Potassium Chloride/Sodium Chloride (1/2ns+20meq Kcl) 1,000 meq in 50,000 mls @ 83 mls/hr IV ASDIR [facility] Last Admin: 05/25/19 10:09 Dose: 83 mls/hr Documented by: Insulin Aspart (Novolog Mix 70/30 Vial) 8 units SQ ACBK [facility] Last Admin: 05/25/19 06:31 Dose: 8 units Documented by: Insulin Aspart (Novolog Vial Sliding Scale -) 1 vial SQ Q6HPO [facility]; Protocol Last Admin: 05/25/19 12:08 Dose: 4 units Documented by: Latanoprost (Xalatan 0.005% Eye Drops -) 1 drop OU HS [facility] Last Admin: 05/24/19 21:24 Dose: 1 drp Documented by: Methylprednisolone Sodium Succinate (Solu-Medrol -) 40 mg IVPUSH Q8H-IV [facility] Last Admin: 05/25/19 10:10 Dose: 40 mg Documented by: Metoclopramide HCl (Reglan Injection -) 10 mg IVPUSH Q6H-IV [facility] Last Admin: 05/25/19 10:10 Dose: 10 mg Documented by: Ondansetron HCl (Zofran Injection) 4 mg IVPUSH Q6H PRN PRN Reason: NAUSEA Pantoprazole Sodium (Protonix Iv) 40 mg IVPUSH BID [facility] Last Admin: 05/25/19 10:10 Dose: 40 mg Documented by: Pilocarpine HCl (Pilostat 2% -) 1 drop OP BID [facility] Polyethylene Glycol (Miralax (For Daily Use) -) 17 gm PO BID [facility] Last Admin: 05/25/19 10:10 Dose: 17 gm Documented by: Timolol Maleate (Timoptic 0.5%) 1 drop OU BID [facility] Last Admin: 05/25/19 10:12 Dose: 1 drop Documented by: - Objective Vital Signs: Vital Signs Temperature 97.6 F 05/25/19 06:00 Pulse Rate 96 H 05/25/19 06:00 Respiratory Rate 18 05/25/19 06:00 Blood Pressure 101/54 L 05/25/19 06:00 O2 Sat by Pulse Oximetry (%) 96 05/24/19 21:00 Constitutional: Yes: No Distress, Calm Cardiovascular: Yes: S1, S2 Respiratory: Yes: Regular, On Nasal O2, Poor Air Entry Gastrointestinal: Yes: Normal Bowel Sounds, Soft Musculoskeletal: Yes: WNL Extremities: Yes: WNL Neurological: Yes: Alert Psychiatric: Yes: Alert Labs: CBC, BMP 05/25/19 10:10 05/25/19 10:10 INR, PTT INR 0.88 (0.83-1.09) 05/22/19 08:50 Assessment/Plan 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; K31.84 - GASTROPARESIS (2) Hematemesis with nausea Code(s): K92.0 - HEMATEMESIS (3) Epigastric pain Code(s): R10.13 - EPIGASTRIC PAIN (4) Cavitating mass of lung Code(s): J98.4 - OTHER DISORDERS OF LUNG (5) Barretts esophagus Code(s): K22.70 - HANKS'S ESOPHAGUS WITHOUT DYSPLASIA (6) Adrenal adenoma Code(s): D35.00 - BENIGN NEOPLASM OF UNSPECIFIED ADRENAL GLAND (7) Fatty liver Code(s): K76.0 - FATTY (CHANGE OF) LIVER, NOT ELSEWHERE CLASSIFIED (8) GERD with stricture Code(s): K21.9 - GASTRO-ESOPHAGEAL REFLUX DISEASE WITHOUT ESOPHAGITIS; K22.2 - ESOPHAGEAL OBSTRUCTION (9) Hiatal hernia with GERD Code(s): K21.9 - GASTRO-ESOPHAGEAL REFLUX DISEASE WITHOUT ESOPHAGITIS; K44.9 - DIAPHRAGMATIC HERNIA WITHOUT OBSTRUCTION OR GANGRENE (10) Diverticulosis Code(s): K57.90 - DVRTCLOS OF INTEST, PART UNSP, W/O PERF OR ABSCESS W/O BLEED (11) GIB (gastrointestinal bleeding) Code(s): K92.2 - GASTROINTESTINAL HEMORRHAGE, UNSPECIFIED (12) COPD exacerbation Code(s): J44.1 - CHRONIC OBSTRUCTIVE PULMONARY DISEASE W (ACUTE) EXACERBATION (13) H/O: HTN (hypertension) Code(s): Z86.79 - PERSONAL HISTORY OF OTHER DISEASES OF THE CIRCULATORY SYSTEM (14) T2DM (type 2 diabetes mellitus) Code(s): E11.9 - TYPE 2 DIABETES MELLITUS WITHOUT COMPLICATIONS (15) Tobacco abuse Code(s): Z72.0 - TOBACCO USE (16) Family hx of colon cancer Code(s): Z80.0 - FAMILY HISTORY OF MALIGNANT NEOPLASM OF DIGESTIVE ORGANS patient was started on zosyn plan continue current mgmt rest as per the team
[2019-05-25 16:02] LABS: ANISOCYTOSIS 1+; MACROCYTOSIS 0; PLATELET ESTIMATE DECREASED
[2019-05-25 17:10] LABS: TRANSGLUTAMINASE IGA < 2 U/mL (0-3); TRANSGLUTAMINASE IGG < 2 U/mL (0-5)
--- NOTE | 2019-05-25 18:21 | PN ---
Progress Note (short form) - Note Progress Note: Renal follow up for hypernatremia Seen and examined at the bedside awake and alert has some shortness of breath no chest pain, fever, chills, N/V/D on IVF no cough Vital Signs Temperature 97.3 F L 05/25/19 14:13 Pulse Rate 93 H 05/25/19 14:13 Respiratory Rate 18 05/25/19 14:13 Blood Pressure 94/50 L 05/25/19 14:13 O2 Sat by Pulse Oximetry (%) 96 05/24/19 21:00 Intake & Output 05/22/19 05/23/19 05/24/19 05/25/19 22:59 22:59 23:59 23:59 Intake Total 1148 Balance 1148 Weight 45.813 kg NAD awake and alert neck supple Dry MM RRR, no M/R Dec BS throughout the lung montes, no rales or wheeze soft NT/ND no LE edema CBC, BMP 05/25/19 10:10 05/25/19 10:10 Current Medications Acetaminophen/Codeine Phosphate (Tylenol # 3 -) 1 tab PO TID PRN PRN Reason: PAIN Last Admin: 05/25/19 11:09 Dose: 1 tab Documented by: Albuterol Sulfate (Ventolin 0.083% Nebulizer Soln -) 1 amp NEB Q4H PRN PRN Reason: SHORT OF BREATH/WHEEZING Albuterol/Ipratropium (Duoneb -) 1 amp NEB RQID [facility] Last Admin: 05/25/19 16:20 Dose: 1 amp Documented by: Alprazolam (Xanax) 0.5 mg PO Q8H PRN PRN Reason: ANXIETY Last Admin: 05/24/19 16:28 Dose: 0.5 mg Documented by: Amlodipine Besylate (Norvasc -) 5 mg PO DAILY [facility] Last Admin: 05/25/19 10:10 Dose: 5 mg Documented by: Brimonidine Tartrate (Alphagan 0.2% -) 1 drop OU BID [facility] Last Admin: 05/25/19 10:11 Dose: 1 drop Documented by: Potassium Chloride/Sodium Chloride (1/2ns+20meq Kcl) 1,000 meq in 50,000 mls @ 83 mls/hr IV ASDIR [facility] Last Admin: 05/25/19 10:09 Dose: 83 mls/hr Documented by: Insulin Aspart (Novolog Mix 70/30 Vial) 8 units SQ ACBK [facility] Last Admin: 05/25/19 06:31 Dose: 8 units Documented by: Insulin Aspart (Novolog Vial Sliding Scale -) 1 vial SQ Q6HPO [facility]; Protocol Last Admin: 05/25/19 17:52 Dose: Not Given Documented by: Latanoprost (Xalatan 0.005% Eye Drops -) 1 drop OU HS [facility] Last Admin: 05/24/19 21:24 Dose: 1 drp Documented by: Methylprednisolone Sodium Succinate (Solu-Medrol -) 40 mg IVPUSH Q8H-IV [facility] Last Admin: 05/25/19 18:18 Dose: 40 mg Documented by: Metoclopramide HCl (Reglan Injection -) 10 mg IVPUSH Q6H-IV [facility] Last Admin: 05/25/19 16:38 Dose: 10 mg Documented by: Ondansetron HCl (Zofran Injection) 4 mg IVPUSH Q6H PRN PRN Reason: NAUSEA Pantoprazole Sodium (Protonix Iv) 40 mg IVPUSH BID [facility] Last Admin: 05/25/19 10:10 Dose: 40 mg Documented by: Pilocarpine HCl (Pilostat 2% -) 1 drop OP BID [facility] Polyethylene Glycol (Miralax (For Daily Use) -) 17 gm PO BID [facility] Last Admin: 05/25/19 10:10 Dose: 17 gm Documented by: Timolol Maleate (Timoptic 0.5%) 1 drop OU BID [facility] Last Admin: 05/25/19 10:12 Dose: 1 drop Documented by: 83 year old female with pmhx of dm, copd, htn, chf, anxiety and back pain who presents with coffee ground emesis and found to have hypernatremia. 1. Hypernatremia 2. Azotemia 3. COPD 4. Shortness of breath 5. Hx of HF 6. DM 7. Pulmonary nodule Serum Na improved, still appears mildly volume depleted no evidence of overt fluid overload on examination will change IVF to D5W with 20kcl at 75cc per hour Trend Na daily can given PRN Lasix if there is suspicion of overt congestion steroid as per pulmonary Nebs PRN Work up of pulmonary nodule as per pulmonary
[2019-05-25] MEDS ORDERED: POTASSIUM CHLORIDE 20 MEQ in DEXTROSE 5%-WATER - 1,000 ML IVPB SCH (18:30)
[2019-05-25] MEDS ORDERED: DEXTROSE 5%-WATER - 1,000 ML with POTASSIUM CHLORIDE 20 MEQ IVPB SCH (18:30)
[2019-05-25] MEDS: POTASSIUM CHLORIDE 20 MEQ in DEXTROSE 5%-WATER - 1,000 ML IVPB SCH (21:41)
[2019-05-25] MEDS: LATANOPROST 0.005% OPHTH SOLN 2.5ML BOTTLE OU SCH (21:41)
[2019-05-26] MEDS: INSULIN SLIDING SCALE (NOVOLOG) 1 VIAL SQ SCH ×4 (00:53→17:12)
[2019-05-26] MEDS: METOCLOPRAMIDE HCL INJECTION 10 MG/2 ML VIAL IVPUSH SCH ×3 (02:07→15:31)
[2019-05-26] MEDS: ALPRAZolam 1 MG TABLET PO PRN (02:07)
[2019-05-26] MEDS: methylPREDNISolone NA SUCC 40 MG/1 ML VIAL IVPUSH SCH ×4 (02:07→21:59)
[2019-05-26] MEDS: INSULIN (NOVOLOG MIX 70/30) 100 UNITS/ML MDV SQ SCH (07:03)
[2019-05-26] MEDS: ALBUTEROL SO4 2.5/IPRATROPIUM 0.5 INH SOL 3 ML VIAL.NEB. NEB SCH ×4 (08:36→20:20)
--- NOTE | 2019-05-26 09:21 | PN ---
Progress Note, Physician Chief Complaint: Still C/O sob History of Present Illness: Dr Casey nephrology consult appreciated - Current Medication List Current Medications: Active Medications Acetaminophen/Codeine Phosphate (Tylenol # 3 -) 1 tab PO TID PRN PRN Reason: PAIN Last Admin: 05/25/19 11:09 Dose: 1 tab Documented by: Albuterol Sulfate (Ventolin 0.083% Nebulizer Soln -) 1 amp NEB Q4H PRN PRN Reason: SHORT OF BREATH/WHEEZING Albuterol/Ipratropium (Duoneb -) 1 amp NEB RQID [facility] Last Admin: 05/26/19 08:36 Dose: 1 amp Documented by: Alprazolam (Xanax) 0.5 mg PO Q8H PRN PRN Reason: ANXIETY Last Admin: 05/26/19 02:07 Dose: 0.5 mg Documented by: Amlodipine Besylate (Norvasc -) 5 mg PO DAILY [facility] Last Admin: 05/25/19 10:10 Dose: 5 mg Documented by: Brimonidine Tartrate (Alphagan 0.2% -) 1 drop OU BID [facility] Last Admin: 05/25/19 21:40 Dose: 1 drop Documented by: Potassium Chloride 20 meq/ (Dextrose) 1,010 mls @ 75 mls/hr IVPB Q13H [facility] Last Admin: 05/25/19 21:41 Dose: 75 mls/hr Documented by: Insulin Aspart (Novolog Mix 70/30 Vial) 8 units SQ ACBK [facility] Last Admin: 05/26/19 07:03 Dose: 8 units Documented by: Insulin Aspart (Novolog Vial Sliding Scale -) 1 vial SQ Q6HPO [facility]; Protocol Last Admin: 05/26/19 06:59 Dose: Not Given Documented by: Latanoprost (Xalatan 0.005% Eye Drops -) 1 drop OU HS [facility] Last Admin: 05/25/19 21:41 Dose: 1 drp Documented by: Methylprednisolone Sodium Succinate (Solu-Medrol -) 40 mg IVPUSH Q8H-IV [facility] Last Admin: 05/26/19 02:07 Dose: 40 mg Documented by: Metoclopramide HCl (Reglan Injection -) 10 mg IVPUSH Q6H-IV [facility] Last Admin: 05/26/19 02:07 Dose: 10 mg Documented by: Ondansetron HCl (Zofran Injection) 4 mg IVPUSH Q6H PRN PRN Reason: NAUSEA Pantoprazole Sodium (Protonix Iv) 40 mg IVPUSH BID [facility] Last Admin: 05/25/19 21:41 Dose: 40 mg Documented by: Pilocarpine HCl (Pilostat 2% -) 1 drop OP BID [facility] Polyethylene Glycol (Miralax (For Daily Use) -) 17 gm PO BID [facility] Last Admin: 05/25/19 21:42 Dose: 17 gm Documented by: Timolol Maleate (Timoptic 0.5%) 1 drop OU BID [facility] Last Admin: 05/25/19 21:40 Dose: 1 drop Documented by: - Objective Vital Signs: Vital Signs Temperature 97.8 F 05/26/19 06:15 Pulse Rate 113 H 05/26/19 06:15 Respiratory Rate 05/26/19 06:15 Blood Pressure 150/80 05/26/19 06:15 O2 Sat by Pulse Oximetry (%) 94 L 05/25/19 21:00 Constitutional: Yes: Mild Distress Eyes: Yes: WNL HENT: Yes: WNL Neck: Yes: WNL Cardiovascular: Yes: WNL Respiratory: Yes: On Nasal O2, Stridor ...Rectal Exam: Yes: Deferred Musculoskeletal: Yes: Muscle Weakness Edema: No Wound/Incision: Yes: Clean/Dry Labs: CBC, BMP 05/25/19 10:10 05/25/19 10:10 INR, PTT INR 0.88 (0.83-1.09) 05/22/19 08:50 Assessment/Plan Continue 1/2 NS with 20 meq kcl at 80cc/hr natremia
[2019-05-26] MEDS: POLYETHYLENE GLYCOL 3350 119 GM BTL PO SCH (09:31)
[2019-05-26] MEDS: PANTOPRAZOLE SODIUM 40 MG VIAL IVPUSH SCH (09:32)
[2019-05-26] MEDS: amLODIPine BESYLATE 5 MG TABLET (FP) PO SCH (09:32)
[2019-05-26] MEDS: BRIMONIDINE TARTRATE 0.2% OPHTHALMIC 5 ML BOTTLE OU SCH ×2 (09:38→22:02)
[2019-05-26] MEDS: TIMOLOL 0.5% OPHTHALMIC SOL 5 ML BOTTLE OU SCH ×2 (09:39→22:05)
[2019-05-26] MEDS: PILOCARPINE 2% OPHTHALMIC SOLUTION 15 ML BOTTLE OU SCH ×2 (10:00→22:03)
[2019-05-26 10:41] LABS: HEMOGLOBIN 11.4 GM/dL (10.7-15.3); MCH 30.1 pg (25.7-33.7); MCHC 31.6 g/dl (32.0-36.0); MEAN CELL VOLUME 95.1 fl (80-96); MEAN PLT VOLUME 11.3 fl (7.5-11.1); PLATELET COUNT 146 K/MM3 (134-434); RBC 3.78 M/mm3 (3.60-5.2); RDW 14.2 % (11.6-15.6); WHITE BLOOD COUNT 14.6 K/mm3 (4.0-10.0)
--- NOTE | 2019-05-26 11:08 | PN ---
Progress Note (short form) - Note Progress Note: PULMONARY More short of breath today. +nonproductive cough. No fevers. Vital Signs Period Temp Pulse Resp BP Sys/Elizalde Pulse Ox Last 24 Hr 97.3 F-97.8 F 91-113 18-20 94-150/50-80 94 Gen: tachypneic at rest, +accessory muscle use Heart: tachycardic, regular Lung: scattered rhonchi Abd: soft, nontender Ext: no edema CBC, BMP 05/26/19 10:23 Active Medications Acetaminophen/Codeine Phosphate (Tylenol # 3 -) 1 tab PO TID PRN PRN Reason: PAIN Last Admin: 05/25/19 11:09 Dose: 1 tab Documented by: Albuterol Sulfate (Ventolin 0.083% Nebulizer Soln -) 1 amp NEB Q4H PRN PRN Reason: SHORT OF BREATH/WHEEZING Albuterol/Ipratropium (Duoneb -) 1 amp NEB RQID [facility] Last Admin: 05/26/19 08:36 Dose: 1 amp Documented by: Alprazolam (Xanax) 0.5 mg PO Q8H PRN PRN Reason: ANXIETY Last Admin: 05/26/19 02:07 Dose: 0.5 mg Documented by: Amlodipine Besylate (Norvasc -) 5 mg PO DAILY [facility] Last Admin: 05/26/19 09:32 Dose: 5 mg Documented by: Brimonidine Tartrate (Alphagan 0.2% -) 1 drop OU BID [facility] Last Admin: 05/26/19 09:38 Dose: 1 drop Documented by: Potassium Chloride 20 meq/ (Dextrose) 1,010 mls @ 75 mls/hr IVPB Q13H [facility] Last Admin: 05/25/19 21:41 Dose: 75 mls/hr Documented by: Insulin Aspart (Novolog Mix 70/30 Vial) 8 units SQ ACBK [facility] Last Admin: 05/26/19 07:03 Dose: 8 units Documented by: Insulin Aspart (Novolog Vial Sliding Scale -) 1 vial SQ Q6HPO [facility]; Protocol Last Admin: 05/26/19 06:59 Dose: Not Given Documented by: Latanoprost (Xalatan 0.005% Eye Drops -) 1 drop OU HS [facility] Last Admin: 05/25/19 21:41 Dose: 1 drp Documented by: Methylprednisolone Sodium Succinate (Solu-Medrol -) 40 mg IVPUSH Q8H-IV [facility] Last Admin: 05/26/19 09:32 Dose: 40 mg Documented by: Metoclopramide HCl (Reglan Injection -) 10 mg IVPUSH Q6H-IV [facility] Last Admin: 05/26/19 09:31 Dose: 10 mg Documented by: Ondansetron HCl (Zofran Injection) 4 mg IVPUSH Q6H PRN PRN Reason: NAUSEA Pantoprazole Sodium (Protonix Iv) 40 mg IVPUSH BID [facility] Last Admin: 05/26/19 09:32 Dose: 40 mg Documented by: Pilocarpine HCl (Pilostat 2% -) 1 drop OP BID [facility] Polyethylene Glycol (Miralax (For Daily Use) -) 17 gm PO BID [facility] Last Admin: 05/26/19 09:31 Dose: 17 gm Documented by: Timolol Maleate (Timoptic 0.5%) 1 drop OU BID [facility] Last Admin: 05/26/19 09:39 Dose: 1 drop Documented by: A/P Acute COPD Exacerbation Lung Nodule likely Malignant Chronic Hypoxic Respiratory Failure LV Diastolic Dysfunction +Troponins likely Demand Ischemia HTN DM Anxiety - will increase medrol - inhaled bronchodilators - BiPAP to assist in work of breathing - check ABG - O2 to keep Spo2 >90% - would defer elective procedures until respiratory status improves - will need outpt PET scan and CT guided needle biopsy - DVT prophylaxis Problem List - Problems (1) COPD exacerbation Code(s): J44.1 - CHRONIC OBSTRUCTIVE PULMONARY DISEASE W (ACUTE) EXACERBATION
[2019-05-26 11:18] LABS: ALBUMIN 1.8 g/dl (3.4-5.0); BILIRUBIN,TOTAL 0.3 mg/dL (0.2-1); BLOOD UREA NITROGEN 24.9 mg/dL (7-18); CALCIUM 8.2 mg/dL (8.5-10.1); MAGNESIUM 2.1 mg/dL (1.8-2.4); POTASSIUM 3.9 mmol/L (3.5-5.1); TOT PROT 4.8 g/dl (6.4-8.2)
[2019-05-26] MEDS ORDERED: PT OWN MED DRAWER 7, Y5N ONE ×2 (11:32→15:14)
--- NOTE | 2019-05-26 11:43 | PN ---
Progress Note, Physician History of Present Illness: resp distress placed on bipap now - Current Medication List Current Medications: Active Medications Acetaminophen/Codeine Phosphate (Tylenol # 3 -) 1 tab PO TID PRN PRN Reason: PAIN Last Admin: 05/25/19 11:09 Dose: 1 tab Documented by: Albuterol Sulfate (Ventolin 0.083% Nebulizer Soln -) 1 amp NEB Q4H PRN PRN Reason: SHORT OF BREATH/WHEEZING Albuterol/Ipratropium (Duoneb -) 1 amp NEB RQID [facility] Last Admin: 05/26/19 08:36 Dose: 1 amp Documented by: Alprazolam (Xanax) 0.5 mg PO Q8H PRN PRN Reason: ANXIETY Last Admin: 05/26/19 02:07 Dose: 0.5 mg Documented by: Amlodipine Besylate (Norvasc -) 5 mg PO DAILY [facility] Last Admin: 05/26/19 09:32 Dose: 5 mg Documented by: Brimonidine Tartrate (Alphagan 0.2% -) 1 drop OU BID [facility] Last Admin: 05/26/19 09:38 Dose: 1 drop Documented by: Potassium Chloride 20 meq/ (Dextrose) 1,010 mls @ 75 mls/hr IVPB Q13H [facility] Last Admin: 05/25/19 21:41 Dose: 75 mls/hr Documented by: Insulin Aspart (Novolog Mix 70/30 Vial) 8 units SQ ACBK [facility] Last Admin: 05/26/19 07:03 Dose: 8 units Documented by: Insulin Aspart (Novolog Vial Sliding Scale -) 1 vial SQ Q6HPO [facility]; Protocol Last Admin: 05/26/19 06:59 Dose: Not Given Documented by: Latanoprost (Xalatan 0.005% Eye Drops -) 1 drop OU HS [facility] Last Admin: 05/25/19 21:41 Dose: 1 drp Documented by: Methylprednisolone Sodium Succinate (Solu-Medrol -) 60 mg IVPUSH Q6H [facility] Metoclopramide HCl (Reglan Injection -) 10 mg IVPUSH Q6H-IV [facility] Last Admin: 05/26/19 09:31 Dose: 10 mg Documented by: Ondansetron HCl (Zofran Injection) 4 mg IVPUSH Q6H PRN PRN Reason: NAUSEA Pantoprazole Sodium (Protonix Iv) 40 mg IVPUSH BID [facility] Last Admin: 05/26/19 09:32 Dose: 40 mg Documented by: Pilocarpine HCl (Pilostat 2% -) 1 drop OP BID [facility] Polyethylene Glycol (Miralax (For Daily Use) -) 17 gm PO BID [facility] Last Admin: 05/26/19 09:31 Dose: 17 gm Documented by: Timolol Maleate (Timoptic 0.5%) 1 drop OU BID [facility] Last Admin: 05/26/19 09:39 Dose: 1 drop Documented by: - Objective Vital Signs: Vital Signs Temperature 97.8 F 05/26/19 06:15 Pulse Rate 113 H 05/26/19 06:15 Respiratory Rate 20 05/26/19 06:15 Blood Pressure 150/80 05/26/19 06:15 O2 Sat by Pulse Oximetry (%) 94 L 05/25/19 21:00 Constitutional: Yes: Moderate Distress HENT: Yes: Atraumatic, Normocephalic Cardiovascular: Yes: S1, S2 Respiratory: Yes: On BiPap, Poor Air Entry, Other Gastrointestinal: Yes: Normal Bowel Sounds, Soft Musculoskeletal: Yes: WNL Extremities: Yes: WNL Neurological: Yes: Alert, Oriented Psychiatric: Yes: Alert, Oriented Labs: CBC, BMP 05/26/19 10:23 05/26/19 10:23 INR, PTT INR 0.88 (0.83-1.09) 05/22/19 08:50 Assessment/Plan 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; K31.84 - GASTROPARESIS (2) Hematemesis with nausea Code(s): K92.0 - HEMATEMESIS (3) Epigastric pain Code(s): R10.13 - EPIGASTRIC PAIN (4) Cavitating mass of lung Code(s): J98.4 - OTHER DISORDERS OF LUNG (5) Barretts esophagus Code(s): K22.70 - HANKS'S ESOPHAGUS WITHOUT DYSPLASIA (6) Adrenal adenoma Code(s): D35.00 - BENIGN NEOPLASM OF UNSPECIFIED ADRENAL GLAND (7) Fatty liver Code(s): K76.0 - FATTY (CHANGE OF) LIVER, NOT ELSEWHERE CLASSIFIED (8) GERD with stricture Code(s): K21.9 - GASTRO-ESOPHAGEAL REFLUX DISEASE WITHOUT ESOPHAGITIS; K22.2 - ESOPHAGEAL OBSTRUCTION (9) Hiatal hernia with GERD Code(s): K21.9 - GASTRO-ESOPHAGEAL REFLUX DISEASE WITHOUT ESOPHAGITIS; K44.9 - DIAPHRAGMATIC HERNIA WITHOUT OBSTRUCTION OR GANGRENE (10) Diverticulosis Code(s): K57.90 - DVRTCLOS OF INTEST, PART UNSP, W/O PERF OR ABSCESS W/O BLEED (11) GIB (gastrointestinal bleeding) Code(s): K92.2 - GASTROINTESTINAL HEMORRHAGE, UNSPECIFIED (12) COPD exacerbation Code(s): J44.1 - CHRONIC OBSTRUCTIVE PULMONARY DISEASE W (ACUTE) EXACERBATION (13) H/O: HTN (hypertension) Code(s): Z86.79 - PERSONAL HISTORY OF OTHER DISEASES OF THE CIRCULATORY SYSTEM (14) T2DM (type 2 diabetes mellitus) Code(s): E11.9 - TYPE 2 DIABETES MELLITUS WITHOUT COMPLICATIONS (15) Tobacco abuse Code(s): Z72.0 - TOBACCO USE (16) Family hx of colon cancer Code(s): Z80.0 - FAMILY HISTORY OF MALIGNANT NEOPLASM OF DIGESTIVE ORGANS patient was started on zosyn plan continue current mgmt rest as per the team
[2019-05-26] MEDS: POTASSIUM CHLORIDE 20 MEQ in DEXTROSE 5%-WATER - 1,000 ML IVPB SCH ×3 (11:54→22:05)
--- NOTE | 2019-05-26 12:58 | PN ---
Progress Note, Physician Chief Complaint: Hypernatremia History of Present Illness: Seen and examined at the bedside awake, groggy on BIPAP noted to be more short of breath this morning no chest pain, fever, chills, N/V/D making urine on IVF - Current Medication List Current Medications: Active Medications Acetaminophen/Codeine Phosphate (Tylenol # 3 -) 1 tab PO TID PRN PRN Reason: PAIN Last Admin: 05/25/19 11:09 Dose: 1 tab Documented by: Albuterol Sulfate (Ventolin 0.083% Nebulizer Soln -) 1 amp NEB Q4H PRN PRN Reason: SHORT OF BREATH/WHEEZING Albuterol/Ipratropium (Duoneb -) 1 amp NEB RQID [facility] Last Admin: 05/26/19 11:40 Dose: 1 amp Documented by: Alprazolam (Xanax) 0.5 mg PO Q8H PRN PRN Reason: ANXIETY Last Admin: 05/26/19 02:07 Dose: 0.5 mg Documented by: Amlodipine Besylate (Norvasc -) 5 mg PO DAILY [facility] Last Admin: 05/26/19 09:32 Dose: 5 mg Documented by: Brimonidine Tartrate (Alphagan 0.2% -) 1 drop OU BID [facility] Last Admin: 05/26/19 09:38 Dose: 1 drop Documented by: Potassium Chloride 20 meq/ (Dextrose) 1,010 mls @ 75 mls/hr IVPB Q13H [facility] Last Admin: 05/26/19 12:02 Dose: Not Given Documented by: Potassium Phosphate 30 mm/ (Dextrose) 260 mls @ 62.5 mls/hr IVPB ONCE ONE Stop: 05/26/19 17:03 Insulin Aspart (Novolog Mix 70/30 Vial) 8 units SQ ACBK [facility] Last Admin: 05/26/19 07:03 Dose: 8 units Documented by: Insulin Aspart (Novolog Vial Sliding Scale -) 1 vial SQ Q6HPO [facility]; Protocol Last Admin: 05/26/19 12:12 Dose: 4 units Documented by: Latanoprost (Xalatan 0.005% Eye Drops -) 1 drop OU HS [facility] Last Admin: 05/25/19 21:41 Dose: 1 drp Documented by: Methylprednisolone Sodium Succinate (Solu-Medrol -) 60 mg IVPUSH Q6H [facility] Metoclopramide HCl (Reglan Injection -) 10 mg IVPUSH Q6H-IV [facility] Last Admin: 05/26/19 09:31 Dose: 10 mg Documented by: Ondansetron HCl (Zofran Injection) 4 mg IVPUSH Q6H PRN PRN Reason: NAUSEA Pantoprazole Sodium (Protonix Iv) 40 mg IVPUSH BID [facility] Last Admin: 05/26/19 09:32 Dose: 40 mg Documented by: Pilocarpine HCl (Pilostat 2% -) 1 drop OP BID [facility] Polyethylene Glycol (Miralax (For Daily Use) -) 17 gm PO BID [facility] Last Admin: 05/26/19 09:31 Dose: 17 gm Documented by: Timolol Maleate (Timoptic 0.5%) 1 drop OU BID [facility] Last Admin: 05/26/19 09:39 Dose: 1 drop Documented by: - Objective Vital Signs: Vital Signs Temperature 97.8 F 05/26/19 06:15 Pulse Rate 113 H 05/26/19 06:15 Respiratory Rate 20 05/26/19 06:15 Blood Pressure 150/80 05/26/19 06:15 O2 Sat by Pulse Oximetry (%) 94 L 05/25/19 21:00 Constitutional: Yes: Mild Distress, Other (BIPAP in place) HENT: Yes: Atraumatic, Normocephalic Neck: Yes: Supple Cardiovascular: Yes: Regular Rate and Rhythm, S1, S2. No: JVD, Gallop, Murmur, Rub Respiratory: Yes: Regular, Diminished, On BiPap, SOB. No: Rales, Rhonchi, Wheezes Gastrointestinal: Yes: Normal Bowel Sounds, Soft. No: Distention, Tenderness Edema: No Neurological: Yes: Lethargy Labs: CBC, BMP 05/26/19 10:23 05/26/19 10:23 INR, PTT INR 0.88 (0.83-1.09) 05/22/19 08:50 - ....Imaging Chest X-ray: Image Reviewed Assessment/Plan 83 year old female with pmhx of dm, copd, htn, chf, anxiety and back pain who presents with coffee ground emesis and found to have hypernatremia. 1. Hypernatremia 2. Azotemia 3. COPD 4. Shortness of breath 5. Hx of HF 6. DM 7. Pulmonary nodule 8. Hypophosphatemia Serum sodium is now improved to within normal limits no evidence of overt fluid overload on examination, CXR shows no effusions or overt congestion. Offical CXR report pending. will hold IVF at this time. Trend Na daily if respiratory distress persists despite BIPAP/Nebs/Steroids can give IV lasix steroid as per pulmonary Work up of pulmonary nodule as per pulmonary supplement Phos with IV K-phos Thank you Chon Woods DO
[2019-05-26 13:10] LABS: ARTERIAL BLD GAS O2 SATURATION 93.5 % (95-98); ARTERIAL BLOOD GAS BASE EXCESS 0.1 meq/l (-2-2); ARTERIAL BLOOD GAS PCO2 36.5 mmHg (35-45); ARTERIAL BLOOD GAS PO2 72.5 mmHg (80-100); ARTERIAL BLOOD GAS pH 7.43 (7.35-7.45)
[2019-05-26 13:11] LABS: ALLENS TEST POSITIVE
[2019-05-26] MEDS ORDERED: POTASSIUM PHOSPHATE 30 MM in DEXTROSE 5%-WATER - 500 ML IVPB ONE (14:00)
--- NOTE | 2019-05-26 19:35 | PN.GI ---
GI Progress Note Subjective: GI NOte: Dr Fleming's consultation is appreciated. The MONICA lesion is suspicious. Now wearing a BIPAP mask and looks more comfortable respiratorily. Blanca has no GI complaints. - Objective Vital Signs: Vital Signs Temperature 97.2 F L 05/26/19 14:13 Pulse Rate 100 H 05/26/19 14:13 Respiratory Rate 18 05/26/19 14:13 Blood Pressure 147/72 05/26/19 14:13 O2 Sat by Pulse Oximetry (%) 98 05/26/19 15:00 Laboratory Tests 05/22/19 05/23/19 05/24/19 08:50 07:10 07:40 WBC 18.6 H 19.0 H 16.4 H Hgb 12.3 12.0 11.6 Retic Count Sodium Hemoglobin A1c % Iron Iron Saturation Ferritin C-Reactive Protein Albumin 05/24/19 05/24/19 05/24/19 07:40 07:40 07:40 WBC Hgb Retic Count 0.79 Sodium 155 H Hemoglobin A1c % Iron 19 L Iron Saturation 13 L Ferritin 891.6 H C-Reactive Protein 18.4 H Albumin 05/24/19 05/26/19 07:40 10:23 WBC Hgb Retic Count Sodium Hemoglobin A1c % 11.4 H Iron Iron Saturation Ferritin C-Reactive Protein Albumin 1.8 L Constitutional: No Distress ...Auscultate: Yes: Hypoactive Bowel Sounds ...Palpate: Yes: Soft, Other (nontender) Labs: CBC, BMP 05/26/19 10:23 05/26/19 10:23 INR, PTT INR 0.88 (0.83-1.09) 05/22/19 08:50 Assessment/Plan Impression: - 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 - FH of colon cancer but given the specter of a lung malignancy and her pulmonary status will defer repeat screening indefinitely. - Fatty liver- is not uncommon with diabetes - GERD with Hanks's esophagus and HH, Schatzki ring- repeat surveillance if/when pulmonary status permits Plan: -- PPI PO -- Reglan PO Please recall us as needed. Thank you! 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; K31.84 - GASTROPARESIS (2) Hematemesis with nausea Code(s): K92.0 - HEMATEMESIS (3) Epigastric pain Code(s): R10.13 - EPIGASTRIC PAIN (4) Cavitating mass of lung Code(s): J98.4 - OTHER DISORDERS OF LUNG (5) Barretts esophagus Code(s): K22.70 - HANKS'S ESOPHAGUS WITHOUT DYSPLASIA (6) Adrenal adenoma Code(s): D35.00 - BENIGN NEOPLASM OF UNSPECIFIED ADRENAL GLAND (7) Fatty liver Code(s): K76.0 - FATTY (CHANGE OF) LIVER, NOT ELSEWHERE CLASSIFIED (8) GERD with stricture Code(s): K21.9 - GASTRO-ESOPHAGEAL REFLUX DISEASE WITHOUT ESOPHAGITIS; K22.2 - ESOPHAGEAL OBSTRUCTION (9) Hiatal hernia with GERD Code(s): K21.9 - GASTRO-ESOPHAGEAL REFLUX DISEASE WITHOUT ESOPHAGITIS; K44.9 - DIAPHRAGMATIC HERNIA WITHOUT OBSTRUCTION OR GANGRENE (10) Diverticulosis Code(s): K57.90 - DVRTCLOS OF INTEST, PART UNSP, W/O PERF OR ABSCESS W/O BLEED (11) GIB (gastrointestinal bleeding) Code(s): K92.2 - GASTROINTESTINAL HEMORRHAGE, UNSPECIFIED (12) COPD exacerbation Code(s): J44.1 - CHRONIC OBSTRUCTIVE PULMONARY DISEASE W (ACUTE) EXACERBATION (13) H/O: HTN (hypertension) Code(s): Z86.79 - PERSONAL HISTORY OF OTHER DISEASES OF THE CIRCULATORY SYSTEM (14) T2DM (type 2 diabetes mellitus) Code(s): E11.9 - TYPE 2 DIABETES MELLITUS WITHOUT COMPLICATIONS (15) Tobacco abuse Code(s): Z72.0 - TOBACCO USE (16) Family hx of colon cancer Code(s): Z80.0 - FAMILY HISTORY OF MALIGNANT NEOPLASM OF DIGESTIVE ORGANS
[2019-05-26] MEDS: PANTOPRAZOLE 40 MG TABLET PO SCH (21:59)
[2019-05-26] MEDS: LATANOPROST 0.005% OPHTH SOLN 2.5ML BOTTLE OU SCH (22:02)
[2019-05-27] MEDS: INSULIN SLIDING SCALE (NOVOLOG) 1 VIAL SQ SCH ×4 (00:24→18:16)
[2019-05-27] MEDS: methylPREDNISolone NA SUCC 40 MG/1 ML VIAL IVPUSH SCH ×4 (04:45→21:50)
[2019-05-27] MEDS: INSULIN (NOVOLOG MIX 70/30) 100 UNITS/ML MDV SQ SCH (06:11)
[2019-05-27] MEDS: METOCLOPRAMIDE HCL 10 MG TABLET (FP) PO SCH ×3 (06:13→18:06)
[2019-05-27] MEDS: ALBUTEROL SO4 2.5/IPRATROPIUM 0.5 INH SOL 3 ML VIAL.NEB. NEB SCH ×4 (07:45→20:09)
[2019-05-27] MEDS: POLYETHYLENE GLYCOL 3350 119 GM BTL PO SCH (11:28)
[2019-05-27] MEDS: PILOCARPINE 2% OPHTHALMIC SOLUTION 15 ML BOTTLE OU SCH ×2 (11:29→21:49)
[2019-05-27] MEDS: amLODIPine BESYLATE 5 MG TABLET (FP) PO SCH (11:29)
[2019-05-27] MEDS: BRIMONIDINE TARTRATE 0.2% OPHTHALMIC 5 ML BOTTLE OU SCH ×2 (11:29→21:48)
[2019-05-27] MEDS: PANTOPRAZOLE 40 MG TABLET PO SCH ×2 (11:29→21:48)
[2019-05-27] MEDS: TIMOLOL 0.5% OPHTHALMIC SOL 5 ML BOTTLE OU SCH ×2 (11:30→21:40)
--- NOTE | 2019-05-27 12:19 | PN ---
Progress Note, Physician History of Present Illness: stable no new issues - Current Medication List Current Medications: Active Medications Albuterol Sulfate (Ventolin 0.083% Nebulizer Soln -) 1 amp NEB Q4H PRN PRN Reason: SHORT OF BREATH/WHEEZING Albuterol/Ipratropium (Duoneb -) 1 amp NEB RQID [facility] Last Admin: 05/27/19 11:18 Dose: 1 amp Documented by: Alprazolam (Xanax -) 0.5 mg PO Q8H PRN PRN Reason: ANXIETY Last Admin: 05/27/19 00:00 Dose: 0.5 mg Documented by: Amlodipine Besylate (Norvasc -) 5 mg PO DAILY [facility] Last Admin: 05/27/19 11:29 Dose: 5 mg Documented by: Brimonidine Tartrate (Alphagan 0.2% -) 1 drop OU BID [facility] Last Admin: 05/27/19 11:29 Dose: 1 drop Documented by: Insulin Aspart (Novolog Mix 70/30 Vial) 8 units SQ ACBK [facility] Last Admin: 05/27/19 06:11 Dose: 8 units Documented by: Insulin Aspart (Novolog Vial Sliding Scale -) 1 vial SQ Q6HPO [facility]; Protocol Last Admin: 05/27/19 11:35 Dose: Not Given Documented by: Latanoprost (Xalatan 0.005% Eye Drops -) 1 drop OU HS [facility] Last Admin: 05/26/19 22:02 Dose: 1 drp Documented by: Methylprednisolone Sodium Succinate (Solu-Medrol -) 60 mg IVPUSH Q6H [facility] Last Admin: 05/27/19 11:30 Dose: 60 mg Documented by: Metoclopramide HCl (Reglan -) 5 mg PO TIDAC [facility] Last Admin: 05/27/19 11:29 Dose: 5 mg Documented by: Ondansetron HCl (Zofran Injection) 4 mg IVPUSH Q6H PRN PRN Reason: NAUSEA Pantoprazole Sodium (Protonix -) 40 mg PO BID [facility] Last Admin: 05/27/19 11:29 Dose: 40 mg Documented by: Pilocarpine HCl (Pilostat 2% -) 1 drop OU BID [facility] Last Admin: 05/27/19 11:29 Dose: 1 drop Documented by: Polyethylene Glycol (Miralax (For Daily Use) -) 17 gm PO DAILY [facility] Last Admin: 05/27/19 11:28 Dose: Not Given Documented by: Timolol Maleate (Timoptic 0.5%) 1 drop OU BID [facility] Last Admin: 05/27/19 11:30 Dose: 1 drop Documented by: - Objective Vital Signs: Vital Signs Temperature 97.3 F L 05/27/19 07:19 Pulse Rate 94 H 05/27/19 07:19 Respiratory Rate 20 05/27/19 07:19 Blood Pressure 118/84 05/27/19 07:19 O2 Sat by Pulse Oximetry (%) 94 L 05/27/19 07:45 Constitutional: Yes: No Distress, Calm Cardiovascular: Yes: S1, S2 Respiratory: Yes: Regular, CTA Bilaterally Gastrointestinal: Yes: Normal Bowel Sounds, Soft Musculoskeletal: Yes: WNL Extremities: Yes: Other Edema: LLE: 1+, RLE: 1+ Neurological: Yes: Alert, Oriented Psychiatric: Yes: Alert, Oriented Labs: CBC, BMP 05/26/19 10:23 05/26/19 10:23 INR, PTT INR 0.88 (0.83-1.09) 05/22/19 08:50 Assessment/Plan 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; K31.84 - GASTROPARESIS (2) Hematemesis with nausea Code(s): K92.0 - HEMATEMESIS (3) Epigastric pain Code(s): R10.13 - EPIGASTRIC PAIN (4) Cavitating mass of lung Code(s): J98.4 - OTHER DISORDERS OF LUNG (5) Barretts esophagus Code(s): K22.70 - HANKS'S ESOPHAGUS WITHOUT DYSPLASIA (6) Adrenal adenoma Code(s): D35.00 - BENIGN NEOPLASM OF UNSPECIFIED ADRENAL GLAND (7) Fatty liver Code(s): K76.0 - FATTY (CHANGE OF) LIVER, NOT ELSEWHERE CLASSIFIED (8) GERD with stricture Code(s): K21.9 - GASTRO-ESOPHAGEAL REFLUX DISEASE WITHOUT ESOPHAGITIS; K22.2 - ESOPHAGEAL OBSTRUCTION (9) Hiatal hernia with GERD Code(s): K21.9 - GASTRO-ESOPHAGEAL REFLUX DISEASE WITHOUT ESOPHAGITIS; K44.9 - DIAPHRAGMATIC HERNIA WITHOUT OBSTRUCTION OR GANGRENE (10) Diverticulosis Code(s): K57.90 - DVRTCLOS OF INTEST, PART UNSP, W/O PERF OR ABSCESS W/O BLEED (11) GIB (gastrointestinal bleeding) Code(s): K92.2 - GASTROINTESTINAL HEMORRHAGE, UNSPECIFIED (12) COPD exacerbation Code(s): J44.1 - CHRONIC OBSTRUCTIVE PULMONARY DISEASE W (ACUTE) EXACERBATION (13) H/O: HTN (hypertension) Code(s): Z86.79 - PERSONAL HISTORY OF OTHER DISEASES OF THE CIRCULATORY SYSTEM (14) T2DM (type 2 diabetes mellitus) Code(s): E11.9 - TYPE 2 DIABETES MELLITUS WITHOUT COMPLICATIONS (15) Tobacco abuse Code(s): Z72.0 - TOBACCO USE (16) Family hx of colon cancer Code(s): Z80.0 - FAMILY HISTORY OF MALIGNANT NEOPLASM OF DIGESTIVE ORGANS 17 stage 3 decubitus ulcer plan continue current mgmt rest as per the team
--- NOTE | 2019-05-27 13:14 | PN ---
Progress Note, Physician History of Present Illness: pulmonary alert,less dyspneic,on o2 - Current Medication List Current Medications: Active Medications Albuterol Sulfate (Ventolin 0.083% Nebulizer Soln -) 1 amp NEB Q4H PRN PRN Reason: SHORT OF BREATH/WHEEZING Albuterol/Ipratropium (Duoneb -) 1 amp NEB RQID [facility] Last Admin: 05/27/19 11:18 Dose: 1 amp Documented by: Alprazolam (Xanax -) 0.5 mg PO Q8H PRN PRN Reason: ANXIETY Last Admin: 05/27/19 00:00 Dose: 0.5 mg Documented by: Amlodipine Besylate (Norvasc -) 5 mg PO DAILY [facility] Last Admin: 05/27/19 11:29 Dose: 5 mg Documented by: Brimonidine Tartrate (Alphagan 0.2% -) 1 drop OU BID [facility] Last Admin: 05/27/19 11:29 Dose: 1 drop Documented by: Insulin Aspart (Novolog Mix 70/30 Vial) 8 units SQ ACBK [facility] Last Admin: 05/27/19 06:11 Dose: 8 units Documented by: Insulin Aspart (Novolog Vial Sliding Scale -) 1 vial SQ Q6HPO [facility]; Protocol Last Admin: 05/27/19 11:35 Dose: Not Given Documented by: Latanoprost (Xalatan 0.005% Eye Drops -) 1 drop OU HS [facility] Last Admin: 05/26/19 22:02 Dose: 1 drp Documented by: Methylprednisolone Sodium Succinate (Solu-Medrol -) 60 mg IVPUSH Q6H [facility] Last Admin: 05/27/19 11:30 Dose: 60 mg Documented by: Metoclopramide HCl (Reglan -) 5 mg PO TIDAC [facility] Last Admin: 05/27/19 11:29 Dose: 5 mg Documented by: Ondansetron HCl (Zofran Injection) 4 mg IVPUSH Q6H PRN PRN Reason: NAUSEA Pantoprazole Sodium (Protonix -) 40 mg PO BID [facility] Last Admin: 05/27/19 11:29 Dose: 40 mg Documented by: Pilocarpine HCl (Pilostat 2% -) 1 drop OU BID [facility] Last Admin: 05/27/19 11:29 Dose: 1 drop Documented by: Polyethylene Glycol (Miralax (For Daily Use) -) 17 gm PO DAILY [facility] Last Admin: 05/27/19 11:28 Dose: Not Given Documented by: Timolol Maleate (Timoptic 0.5%) 1 drop OU BID [facility] Last Admin: 05/27/19 11:30 Dose: 1 drop Documented by: - Objective Vital Signs: Vital Signs Temperature 97.3 F L 05/27/19 07:19 Pulse Rate 94 H 05/27/19 07:19 Respiratory Rate 05/27/19 07:19 Blood Pressure 118/84 05/27/19 07:19 O2 Sat by Pulse Oximetry (%) 94 L 05/27/19 07:45 Constitutional: Yes: Calm, Thin Eyes: Yes: WNL HENT: Yes: WNL Neck: Yes: WNL Cardiovascular: Yes: Regular Rate and Rhythm, S1, S2 Respiratory: Yes: Rhonchi (bilateral wheezes and rhonchi), Wheezes Gastrointestinal: Yes: Normal Bowel Sounds, Soft Extremities: Yes: WNL Edema: No Labs: CBC, BMP Laboratory Tests 05/26/19 12:45 ABG pH 7.43 ABG pCO2 at Pt Temp 36.5 ABG pO2 at Pt Temp 72.5 L ABG HCO3 23.6 ABG O2 Sat (Measured) 93.5 L Patient On Oxygen 40% Problem List - Problems (1) Cavitating mass of lung Code(s): J98.4 - OTHER DISORDERS OF LUNG (2) SOB (shortness of breath) Code(s): R06.02 - SHORTNESS OF BREATH (3) Acute on chronic respiratory failure with hypoxia and hypercapnia Code(s): J96.21 - ACUTE AND CHRONIC RESPIRATORY FAILURE WITH HYPOXIA; J96.22 - ACUTE AND CHRONIC RESPIRATORY FAILURE WITH HYPERCAPNIA (4) Acute respiratory failure Code(s): J96.00 - ACUTE RESPIRATORY FAILURE, UNSP W HYPOXIA OR HYPERCAPNIA Qualifiers: Respiratory failure complication: hypoxia Qualified Code(s): J96.01 - Acute respiratory failure with hypoxia (5) COPD exacerbation Code(s): J44.1 - CHRONIC OBSTRUCTIVE PULMONARY DISEASE W (ACUTE) EXACERBATION (6) SOB (shortness of breath) Code(s): R06.02 - SHORTNESS OF BREATH Assessment/Plan A/P Acute COPD Exacerbation Lung Nodule likely Malignant Chronic Hypoxic Respiratory Failure LV Diastolic Dysfunction +Troponins likely Demand Ischemia HTN DM Anxiety - medrol same dose - inhaled bronchodilators - BiPAP to assist in work of breathing - O2 to keep Spo2 >90% - would defer elective procedures until respiratory status improves - will need outpt PET scan and CT guided needle biopsy - DVT prophylaxis Problem List - Problems (1) COPD exacerbation Code(s): J44.1 - CHRONIC OBSTRUCTIVE PULMONARY DISEASE W (ACUTE) EXACERBATION
[2019-05-27 15:47] LABS: BLOOD UREA NITROGEN 21.3 mg/dL (7-18); CALCIUM 8.8 mg/dL (8.5-10.1); CREATININE 0.7 mg/dL (0.55-1.3); MAGNESIUM 1.9 mg/dL (1.8-2.4); PHOSPHOROUS 2.9 mg/dL (2.5-4.9); POTASSIUM 4.2 mmol/L (3.5-5.1)
[2019-05-27] MEDS: ALPRAZolam 0.25 MG TABLET PO PRN ×2 (20:38)
[2019-05-27] MEDS: LATANOPROST 0.005% OPHTH SOLN 2.5ML BOTTLE OU SCH (21:50)
[2019-05-28] MEDS: INSULIN SLIDING SCALE (NOVOLOG) 1 VIAL SQ SCH ×4 (00:22→17:28)
[2019-05-28] MEDS: methylPREDNISolone NA SUCC 40 MG/1 ML VIAL IVPUSH SCH (05:05)
[2019-05-28] MEDS: METOCLOPRAMIDE HCL 10 MG TABLET (FP) PO SCH ×3 (06:08→17:12)
[2019-05-28] MEDS: INSULIN (NOVOLOG MIX 70/30) 100 UNITS/ML MDV SQ SCH (06:08)
[2019-05-28] MEDS: ALBUTEROL SO4 2.5/IPRATROPIUM 0.5 INH SOL 3 ML VIAL.NEB. NEB SCH ×4 (07:30→19:45)
[2019-05-28 08:14] LABS: HEMATOCRIT 36.2 % (32.4-45.2); HEMOGLOBIN 11.8 GM/dL (10.7-15.3); MCH 30.1 pg (25.7-33.7); MCHC 32.6 g/dl (32.0-36.0); MEAN CELL VOLUME 92.2 fl (80-96); MEAN PLT VOLUME 11.9 fl (7.5-11.1); PLATELET COUNT 155 K/MM3 (134-434); RBC 3.93 M/mm3 (3.60-5.2); RDW 13.7 % (11.6-15.6); WHITE BLOOD COUNT 19.7 K/mm3 (4.0-10.0)
[2019-05-28 08:50] LABS: ALBUMIN 2.1 g/dl (3.4-5.0); BILIRUBIN,TOTAL 0.4 mg/dL (0.2-1); BLOOD UREA NITROGEN 23.6 mg/dL (7-18); CALCIUM 8.4 mg/dL (8.5-10.1); CREATININE 0.7 mg/dL (0.55-1.3); POTASSIUM 4.3 mmol/L (3.5-5.1); TOT PROT 5.2 g/dl (6.4-8.2)
--- NOTE | 2019-05-28 09:27 | PN ---
Progress Note, Physician Chief Complaint: feels better History of Present Illness: admitted with exacerbation of COPR - Current Medication List Current Medications: Active Medications Albuterol Sulfate (Ventolin 0.083% Nebulizer Soln -) 1 amp NEB Q4H PRN PRN Reason: SHORT OF BREATH/WHEEZING Albuterol/Ipratropium (Duoneb -) 1 amp NEB RQID [facility] Last Admin: 05/27/19 20:09 Dose: 1 amp Documented by: Alprazolam (Xanax -) 0.5 mg PO Q8H PRN PRN Reason: ANXIETY Last Admin: 05/27/19 20:38 Dose: 0.5 mg Documented by: Amlodipine Besylate (Norvasc -) 5 mg PO DAILY [facility] Last Admin: 05/27/19 11:29 Dose: 5 mg Documented by: Brimonidine Tartrate (Alphagan 0.2% -) 1 drop OU BID [facility] Last Admin: 05/27/19 21:48 Dose: 1 drop Documented by: Insulin Aspart (Novolog Mix 70/30 Vial) 8 units SQ ACBK [facility] Last Admin: 05/28/19 06:08 Dose: 8 units Documented by: Insulin Aspart (Novolog Vial Sliding Scale -) 1 vial SQ Q6HPO [facility]; Protocol Last Admin: 05/28/19 06:06 Dose: 2 units Documented by: Latanoprost (Xalatan 0.005% Eye Drops -) 1 drop OU HS [facility] Last Admin: 05/27/19 21:50 Dose: 1 drp Documented by: Metoclopramide HCl (Reglan -) 5 mg PO TIDAC [facility] Last Admin: 05/28/19 06:08 Dose: 5 mg Documented by: Ondansetron HCl (Zofran Injection) 4 mg IVPUSH Q6H PRN PRN Reason: NAUSEA Pantoprazole Sodium (Protonix -) 40 mg PO BID [facility] Last Admin: 05/27/19 21:48 Dose: 40 mg Documented by: Pilocarpine HCl (Pilostat 2% -) 1 drop OU BID [facility] Last Admin: 05/27/19 21:49 Dose: 1 drop Documented by: Polyethylene Glycol (Miralax (For Daily Use) -) 17 gm PO DAILY [facility] Last Admin: 05/27/19 11:28 Dose: Not Given Documented by: Prednisone (Deltasone -) 40 mg PO ONCE ONE Stop: 05/28/19 10:01 Prednisone (Deltasone -) 20 mg PO BID [facility] Timolol Maleate (Timoptic 0.5%) 1 drop OU BID [facility] Last Admin: 05/27/19 21:40 Dose: 1 drop Documented by: - Objective Vital Signs: Vital Signs Temperature 97.6 F 05/28/19 07:44 Pulse Rate 91 H 05/28/19 07:44 Respiratory Rate 05/28/19 07:44 Blood Pressure 132/77 05/28/19 07:44 O2 Sat by Pulse Oximetry (%) 92 L 05/27/19 21:00 Constitutional: Yes: Anxious Eyes: Yes: WNL HENT: Yes: WNL Neck: Yes: WNL Cardiovascular: Yes: WNL Respiratory: Yes: WNL, On Nasal O2, SOB on Exertion Gastrointestinal: Yes: WNL ...Rectal Exam: Yes: WNL Genitourinary: Yes: WNL Edema: No Wound/Incision: Yes: Clean/Dry Neurological: Yes: Alert Psychiatric: Yes: Alert Labs: CBC, BMP 05/28/19 07:30 05/28/19 07:30 INR, PTT INR 0.88 (0.83-1.09) 05/22/19 08:50 Assessment/Plan continue same trt
[2019-05-28] MEDS ORDERED: predniSONE 20 MG TABLET (UD) PO ONE (10:00)
[2019-05-28] MEDS: predniSONE 20 MG TABLET (UD) PO SCH ×2 (10:02→21:27)
[2019-05-28] MEDS: PANTOPRAZOLE 40 MG TABLET PO SCH ×2 (10:02→21:27)
[2019-05-28] MEDS: POLYETHYLENE GLYCOL 3350 119 GM BTL PO SCH (10:02)
[2019-05-28] MEDS: amLODIPine BESYLATE 5 MG TABLET (FP) PO SCH (10:02)
[2019-05-28] MEDS: TIMOLOL 0.5% OPHTHALMIC SOL 5 ML BOTTLE OU SCH ×2 (10:03→21:32)
[2019-05-28] MEDS: PILOCARPINE 2% OPHTHALMIC SOLUTION 15 ML BOTTLE OU SCH ×2 (10:03→21:30)
[2019-05-28] MEDS: BRIMONIDINE TARTRATE 0.2% OPHTHALMIC 5 ML BOTTLE OU SCH ×2 (10:04→21:29)
--- NOTE | 2019-05-28 12:47 | PN ---
Progress Note, Physician History of Present Illness: stable no new issues - Current Medication List Current Medications: Active Medications Albuterol Sulfate (Ventolin 0.083% Nebulizer Soln -) 1 amp NEB Q4H PRN PRN Reason: SHORT OF BREATH/WHEEZING Albuterol/Ipratropium (Duoneb -) 1 amp NEB RQID [facility] Last Admin: 05/28/19 11:26 Dose: 1 amp Documented by: Alprazolam (Xanax -) 0.5 mg PO Q8H PRN PRN Reason: ANXIETY Last Admin: 05/27/19 20:38 Dose: 0.5 mg Documented by: Amlodipine Besylate (Norvasc -) 5 mg PO DAILY [facility] Last Admin: 05/28/19 10:02 Dose: 5 mg Documented by: Brimonidine Tartrate (Alphagan 0.2% -) 1 drop OU BID [facility] Last Admin: 05/28/19 10:04 Dose: 1 drop Documented by: Insulin Aspart (Novolog Mix 70/30 Vial) 8 units SQ ACBK [facility] Last Admin: 05/28/19 06:08 Dose: 8 units Documented by: Insulin Aspart (Novolog Vial Sliding Scale -) 1 vial SQ Q6HPO [facility]; Protocol Last Admin: 05/28/19 06:06 Dose: 2 units Documented by: Latanoprost (Xalatan 0.005% Eye Drops -) 1 drop OU HS [facility] Last Admin: 05/27/19 21:50 Dose: 1 drp Documented by: Metoclopramide HCl (Reglan -) 5 mg PO TIDAC [facility] Last Admin: 05/28/19 11:50 Dose: 5 mg Documented by: Ondansetron HCl (Zofran Injection) 4 mg IVPUSH Q6H PRN PRN Reason: NAUSEA Pantoprazole Sodium (Protonix -) 40 mg PO BID [facility] Last Admin: 05/28/19 10:02 Dose: 40 mg Documented by: Pilocarpine HCl (Pilostat 2% -) 1 drop OU BID [facility] Last Admin: 05/28/19 10:03 Dose: 1 drop Documented by: Polyethylene Glycol (Miralax (For Daily Use) -) 17 gm PO DAILY [facility] Last Admin: 05/28/19 10:02 Dose: Not Given Documented by: Prednisone (Deltasone -) 20 mg PO BID [facility] Last Admin: 05/28/19 10:02 Dose: 20 mg Documented by: Timolol Maleate (Timoptic 0.5%) 1 drop OU BID [facility] Last Admin: 05/28/19 10:03 Dose: 1 drop Documented by: - Objective Vital Signs: Vital Signs Temperature 97.6 F 05/28/19 07:44 Pulse Rate 91 H 05/28/19 07:44 Respiratory Rate 20 05/28/19 07:44 Blood Pressure 132/77 05/28/19 07:44 O2 Sat by Pulse Oximetry (%) 95 05/28/19 07:30 Constitutional: Yes: No Distress, Calm Respiratory: Yes: On Nasal O2, Other Gastrointestinal: Yes: Normal Bowel Sounds, Soft Musculoskeletal: Yes: WNL Extremities: Yes: Other Neurological: Yes: Alert Psychiatric: Yes: Other Labs: CBC, BMP 05/28/19 07:30 05/28/19 07:30 INR, PTT INR 0.88 (0.83-1.09) 05/22/19 08:50 Assessment/Plan 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; K31.84 - GASTROPARESIS (2) Hematemesis with nausea Code(s): K92.0 - HEMATEMESIS (3) Epigastric pain Code(s): R10.13 - EPIGASTRIC PAIN (4) Cavitating mass of lung Code(s): J98.4 - OTHER DISORDERS OF LUNG (5) Barretts esophagus Code(s): K22.70 - HANKS'S ESOPHAGUS WITHOUT DYSPLASIA (6) Adrenal adenoma Code(s): D35.00 - BENIGN NEOPLASM OF UNSPECIFIED ADRENAL GLAND (7) Fatty liver Code(s): K76.0 - FATTY (CHANGE OF) LIVER, NOT ELSEWHERE CLASSIFIED (8) GERD with stricture Code(s): K21.9 - GASTRO-ESOPHAGEAL REFLUX DISEASE WITHOUT ESOPHAGITIS; K22.2 - ESOPHAGEAL OBSTRUCTION (9) Hiatal hernia with GERD Code(s): K21.9 - GASTRO-ESOPHAGEAL REFLUX DISEASE WITHOUT ESOPHAGITIS; K44.9 - DIAPHRAGMATIC HERNIA WITHOUT OBSTRUCTION OR GANGRENE (10) Diverticulosis Code(s): K57.90 - DVRTCLOS OF INTEST, PART UNSP, W/O PERF OR ABSCESS W/O BLEED (11) GIB (gastrointestinal bleeding) Code(s): K92.2 - GASTROINTESTINAL HEMORRHAGE, UNSPECIFIED (12) COPD exacerbation Code(s): J44.1 - CHRONIC OBSTRUCTIVE PULMONARY DISEASE W (ACUTE) EXACERBATION (13) H/O: HTN (hypertension) Code(s): Z86.79 - PERSONAL HISTORY OF OTHER DISEASES OF THE CIRCULATORY SYSTEM (14) T2DM (type 2 diabetes mellitus) Code(s): E11.9 - TYPE 2 DIABETES MELLITUS WITHOUT COMPLICATIONS (15) Tobacco abuse Code(s): Z72.0 - TOBACCO USE (16) Family hx of colon cancer Code(s): Z80.0 - FAMILY HISTORY OF MALIGNANT NEOPLASM OF DIGESTIVE ORGANS 17 stage 3 decubitus ulcer patient was started on zosyn plan continue current mgmt rest as per the team
--- NOTE | 2019-05-28 13:03 | PN ---
Progress Note (short form) - Note Progress Note: PULMONARY Breathing better today. Less cough and wheezing. No fevers. Vital Signs Period Temp Pulse Resp BP Sys/Elizalde Pulse Ox Last 24 Hr 97.3 F-97.6 F 91-116 18-20 127-149/57-77 91-95 Gen: less tachypneic Heart: tachycardic, regular Lung: scattered rhonchi Abd: soft, nontender Ext: no edema CBC, BMP 05/28/19 07:30 05/28/19 07:30 Active Medications Albuterol Sulfate (Ventolin 0.083% Nebulizer Soln -) 1 amp NEB Q4H PRN PRN Reason: SHORT OF BREATH/WHEEZING Albuterol/Ipratropium (Duoneb -) 1 amp NEB RQID [facility] OF [facility] Last Admin: 05/28/19 11:26 Dose: 1 amp Documented by: Alprazolam (Xanax -) 0.5 mg PO Q8H PRN PRN Reason: ANXIETY Last Admin: 05/27/19 20:38 Dose: 0.5 mg Documented by: Amlodipine Besylate (Norvasc -) 5 mg PO DAILY [facility] Last Admin: 05/28/19 10:02 Dose: 5 mg Documented by: Brimonidine Tartrate (Alphagan 0.2% -) 1 drop OU BID [facility] Last Admin: 05/28/19 10:04 Dose: 1 drop Documented by: Insulin Aspart (Novolog Mix 70/30 Vial) 8 units SQ ACBK [facility] Last Admin: 05/28/19 06:08 Dose: 8 units Documented by: Insulin Aspart (Novolog Vial Sliding Scale -) 1 vial SQ Q6HPO [facility]; Protocol Last Admin: 05/28/19 06:06 Dose: 2 units Documented by: Latanoprost (Xalatan 0.005% Eye Drops -) 1 drop OU HS [facility] Last Admin: 05/27/19 21:50 Dose: 1 drp Documented by: Metoclopramide HCl (Reglan -) 5 mg PO TIDAC [facility] Last Admin: 05/28/19 11:50 Dose: 5 mg Documented by: Ondansetron HCl (Zofran Injection) 4 mg IVPUSH Q6H PRN PRN Reason: NAUSEA Pantoprazole Sodium (Protonix -) 40 mg PO BID [facility] Last Admin: 05/28/19 10:02 Dose: 40 mg Documented by: Pilocarpine HCl (Pilostat 2% -) 1 drop OU BID [facility] Last Admin: 05/28/19 10:03 Dose: 1 drop Documented by: Polyethylene Glycol (Miralax (For Daily Use) -) 17 gm PO DAILY [facility] Last Admin: 05/28/19 10:02 Dose: Not Given Documented by: Prednisone (Deltasone -) 20 mg PO BID [facility] Last Admin: 05/28/19 10:02 Dose: 20 mg Documented by: Timolol Maleate (Timoptic 0.5%) 1 drop OU BID [facility] Last Admin: 05/28/19 10:03 Dose: 1 drop Documented by: A/P Acute COPD Exacerbation Lung Nodule likely Malignant Chronic Hypoxic and Hypercapneic Respiratory Failure LV Diastolic Dysfunction +Troponins likely Demand Ischemia HTN DM Anxiety - prednisone taper - inhaled bronchodilators - BiPAP as needed to assist in work of breathing - O2 to keep Spo2 >90% - will need outpt PET scan and CT guided needle biopsy - DVT prophylaxis Problem List - Problems (1) COPD exacerbation Code(s): J44.1 - CHRONIC OBSTRUCTIVE PULMONARY DISEASE W (ACUTE) EXACERBATION
--- NOTE | 2019-05-28 17:34 | PN ---
Progress Note, Physician Chief Complaint: Hypernatremia History of Present Illness: Seen and examined at the bedside awake and alert eating dinner sob is much better has back pain no fever, chills, N/V/D tolerating diet drinking water - Current Medication List Current Medications: Active Medications Albuterol Sulfate (Ventolin 0.083% Nebulizer Soln -) 1 amp NEB Q4H PRN PRN Reason: SHORT OF BREATH/WHEEZING Albuterol/Ipratropium (Duoneb -) 1 amp NEB RQID [facility] Last Admin: 05/28/19 15:15 Dose: 1 amp Documented by: Alprazolam (Xanax -) 0.5 mg PO Q8H PRN PRN Reason: ANXIETY Last Admin: 05/27/19 20:38 Dose: 0.5 mg Documented by: Amlodipine Besylate (Norvasc -) 5 mg PO DAILY [facility] Last Admin: 05/28/19 10:02 Dose: 5 mg Documented by: Brimonidine Tartrate (Alphagan 0.2% -) 1 drop OU BID [facility] Last Admin: 05/28/19 10:04 Dose: 1 drop Documented by: Insulin Aspart (Novolog Mix 70/30 Vial) 8 units SQ ACBK [facility] Last Admin: 05/28/19 06:08 Dose: 8 units Documented by: Insulin Aspart (Novolog Vial Sliding Scale -) 1 vial SQ Q6HPO [facility]; Protocol Last Admin: 05/28/19 17:28 Dose: 2 units Documented by: Latanoprost (Xalatan 0.005% Eye Drops -) 1 drop OU HS [facility] Last Admin: 05/27/19 21:50 Dose: 1 drp Documented by: Metoclopramide HCl (Reglan -) 5 mg PO TIDAC [facility] Last Admin: 05/28/19 17:12 Dose: 5 mg Documented by: Ondansetron HCl (Zofran Injection) 4 mg IVPUSH Q6H PRN PRN Reason: NAUSEA Pantoprazole Sodium (Protonix -) 40 mg PO BID [facility] Last Admin: 05/28/19 10:02 Dose: 40 mg Documented by: Pilocarpine HCl (Pilostat 2% -) 1 drop OU BID [facility] Last Admin: 05/28/19 10:03 Dose: 1 drop Documented by: Polyethylene Glycol (Miralax (For Daily Use) -) 17 gm PO DAILY [facility] Last Admin: 05/28/19 10:02 Dose: Not Given Documented by: Prednisone (Deltasone -) 20 mg PO BID [facility] Last Admin: 05/28/19 10:02 Dose: 20 mg Documented by: Timolol Maleate (Timoptic 0.5%) 1 drop OU BID [facility] Last Admin: 05/28/19 10:03 Dose: 1 drop Documented by: - Objective Vital Signs: Vital Signs Temperature 98.0 F 05/28/19 14:19 Pulse Rate 89 05/28/19 14:19 Respiratory Rate 18 05/28/19 14:19 Blood Pressure 98/56 L 05/28/19 14:19 O2 Sat by Pulse Oximetry (%) 92 L 05/28/19 15:13 Constitutional: Yes: Well Nourished, No Distress Eyes: Yes: Conjunctiva Clear HENT: Yes: Atraumatic Neck: Yes: Supple Cardiovascular: Yes: Regular Rate and Rhythm Respiratory: Yes: Regular, Diminished. No: Rales, Rhonchi, SOB, Wheezes Gastrointestinal: Yes: Normal Bowel Sounds, Soft Extremities: No: Cold, Cool, Cyanosis Edema: No Neurological: Yes: Alert, Oriented Labs: CBC, BMP 05/28/19 07:30 05/28/19 07:30 INR, PTT INR 0.88 (0.83-1.09) 05/22/19 08:50 Assessment/Plan 83 year old female with pmhx of dm, copd, htn, chf, anxiety and back pain who presents with coffee ground emesis and found to have hypernatremia. 1. Hypernatremia 2. Azotemia 3. COPD 4. Shortness of breath 5. Hx of HF 6. DM 7. Pulmonary nodule 8. Hypophosphatemia Serum sodium is now improved to within normal limits Continue oral water intake as tolerated Trend Na daily while inpatient Continue steroids as per pulmonary Trend Phos/Mg daily Thank you Chon Woods DO
[2019-05-28] MEDS: ACETAMINOPHEN 325 MG TABLET (FP) PO PRN (18:58)
[2019-05-28 19:46] VITALS: TEMP 97.3
[2019-05-28] MEDS: LATANOPROST 0.005% OPHTH SOLN 2.5ML BOTTLE OU SCH (21:32)
[2019-05-29] MEDS: INSULIN SLIDING SCALE (NOVOLOG) 1 VIAL SQ SCH ×2 (01:00→06:24)
[2019-05-29] MEDS: ALPRAZolam 0.25 MG TABLET PO PRN (01:49)
[2019-05-29 05:29] VITALS: BP 134/78; PULSE 112
[2019-05-29] MEDS: METOCLOPRAMIDE HCL 10 MG TABLET (FP) PO SCH (06:07)
[2019-05-29] MEDS: INSULIN (NOVOLOG MIX 70/30) 100 UNITS/ML MDV SQ SCH (06:25)
[2019-05-29] MEDS: ACETAMINOPHEN 325 MG TABLET (FP) PO PRN (07:07)
[2019-05-29] MEDS: ALBUTEROL SO4 2.5/IPRATROPIUM 0.5 INH SOL 3 ML VIAL.NEB. NEB SCH ×2 (08:00→12:00)
--- NOTE | 2019-05-29 09:20 | DS ---
Physical Examination Vital Signs: Vital Signs Temperature 97.3 F L 05/29/19 05:27 Pulse Rate 112 H 05/29/19 05:27 Respiratory Rate 18 05/29/19 05:27 Blood Pressure 134/78 05/29/19 05:27 O2 Sat by Pulse Oximetry (%) 92 L 05/28/19 15:13 Findings/Remarks: 83 yr old female with multiple medical problems admitted with upper GI bleeding Evaluated by GI . Since she had all work ups recently and no drop in hb/hct no EGD was done She also had exacerbation of COPD Her sacral area ulcer is healing Constitutional: Yes: Calm Eyes: Yes: WNL HENT: Yes: WNL Neck: Yes: WNL Cardiovascular: Yes: Pulse Irregular Respiratory: Yes: WNL, On Nasal O2, SOB on Exertion Gastrointestinal: Yes: WNL ...Rectal Exam: Yes: Deferred Renal/: Yes: WNL Musculoskeletal: Yes: Muscle Weakness Edema: No Wound/Incision: Yes: Clean/Dry Neurological: Yes: Alert Psychiatric: Yes: Alert Labs: CBC, BMP 05/28/19 07:30 05/28/19 07:30 Discharge Summary Problems reviewed: Yes Reason For Visit: GI BLEED LEUKOCYTOSIS PNEUMONIA Current Active Problems CAIN (acute kidney injury) (Acute) Adrenal adenoma (Acute) Anxiety (Acute) Barretts esophagus (Acute) Cavitating mass of lung (Acute) Diverticulosis (Acute) Elevated troponin (Acute) Epigastric pain (Acute) Family hx of colon cancer (Acute) Fatty liver (Acute) GERD with stricture (Acute) GIB (gastrointestinal bleeding) (Acute) Gastroparesis diabeticorum (Acute) Hematemesis with nausea (Acute) Hiatal hernia with GERD (Acute) Hypernatremia (Acute) Hypernatremia (Acute) Leukocytosis (Acute) Pneumonia (Acute) SOB (shortness of breath) (Acute) Condition: Stable - Instructions Referrals: Margareth Manzo MD [Primary Care Provider] - - Home Medications Comprehensive Discharge Medication List: Ambulatory Orders Amlodipine Besylate [Norvasc -] 5 mg PO DAILY 03/22/14 Losartan Potassium 100 mg PO DAILY 03/23/14 Acetaminophen W/ Codeine #3 [Tylenol # 3 -] 1 tab PO TID PRN 04/20/16 Brimonidine Tartrate/Timolol [Combigan 0.2%-0.5% Eye Drops] 1 drop OU DAILY 04/20/16 Insulin (Novolog 70/30) [Novolog Mix 70/30 Flexpen -] 8 units SQ DAILY 04/20/16 Latanoprost 0.005% Eye Drops [Xalatan 0.005% Eye Drops -] 1 drop OU HS 04/20/16 Alprazolam [Xanax] 0.5 mg PO TID PRN 07/26/16 Glipizide 5 mg PO DAILY 01/26/17 Pilocarpine 2% [Pilostat 2% -] 1 drop OP BID 10/03/18 Famotidine [Pepcid -] 20 mg PO BID #60 tablet 10/08/18 Aa/Hydrolyzed Collagen, Whey [Lps 15-30 Liquid] 30 ml PO BID 05/22/19 Albuterol 2.5/Ipratropium 0.5 [Duoneb -] 1 amp NEB BID PRN 05/22/19 Ascorbic Acid [Vitamin C] 500 mg PO DAILY 05/22/19 Dorzolamide HCl/Pf [Dorzolamide 2% Eye Drop] 1 drop OP BID 05/22/19 Insulin Lispro [Admelog Solostar] 100 unit SQ ASDIR 05/22/19 Multivitamins [Tab-A-Vit -] 1 tab PO DAILY 05/22/19 Polyethylene Glycol 3350 [Miralax (For Daily Use) -] 17 gm PO DAILY 05/22/19 Prednisolone [Millipred] 10 mg PO DAILY 05/22/19 Sennosides [Senna] 2 tab PO PRN 05/22/19 Silver Sulfadiazine 1% Top Cr [Silvadene -] 1 applic TP DAILY 05/22/19 Zinc Sulfate 220 mg PO DAILY 05/22/19
== END 2019-05-29 13:11 | DRG 73 ==
LOC: JER 08:27 → JERBED 15:04 → J6S 16:26
PROVIDERS: ADMIT Internal Medicine; ATTEND Internal Medicine
DX: E11.43 Type 2 diabetes mellitus with diabetic autonomic (poly)neuropathy (principal); L89.153 Pressure ulcer of sacral region, stage 3; J96.21 Acute and chronic respiratory failure with hypoxia; J96.22 Acute and chronic respiratory failure with hypercapnia; J44.1 Chronic obstructive pulmonary disease with (acute) exacerbation; E87.0 Hyperosmolality and hypernatremia; I50.30 Unspecified diastolic (congestive) heart failure; N17.9 Acute kidney failure, unspecified; M48.54XA Collapsed vertebra, not elsewhere classified, thoracic region, initial encounter for fracture; I24.8 Other forms of acute ischemic heart disease; J98.11 Atelectasis; K92.0 Hematemesis; L89.322 Pressure ulcer of left buttock, stage 2; E78.5 Hyperlipidemia, unspecified; H40.9 Unspecified glaucoma; D25.9 Leiomyoma of uterus, unspecified; R91.1 Solitary pulmonary nodule; D72.829 Elevated white blood cell count, unspecified; I11.0 Hypertensive heart disease with heart failure; E83.39 Other disorders of phosphorus metabolism; M54.5 Low back pain; K21.9 Gastro-esophageal reflux disease without esophagitis; K44.9 Diaphragmatic hernia without obstruction or gangrene; R79.89 Other specified abnormal findings of blood chemistry; J98.4 Other disorders of lung; E86.0 Dehydration; F41.9 Anxiety disorder, unspecified; K76.0 Fatty (change of) liver, not elsewhere classified; K57.90 Diverticulosis of intestine, part unspecified, without perforation or abscess without bleeding; K22.70 Barrett's esophagus without dysplasia; M51.36 Other intervertebral disc degeneration, lumbar region; D35.00 Benign neoplasm of unspecified adrenal gland; K31.84 Gastroparesis; E87.6 Hypokalemia; K22.2 Esophageal obstruction; Z66 Do not resuscitate; Z99.81 Dependence on supplemental oxygen; Z87.891 Personal history of nicotine dependence; Z80.0 Family history of malignant neoplasm of digestive organs
CPT/HCPCS: 36415; 36600; 71045-TC-FY; 71260-TC; 74019-TC-FY; 74177-TC; 80048; 80053; 82272; 82728; 82803; 82962; 83036; 83516; 83540; 83550; 83605; 83690; 83735; 83880; 84100; 84484; 85025; 85027; 85044; 85610; 85730; 86140; 86850; 86900; 86901; 93005; 93010; 94640; 94660; 97116-GP; 97161-GP; 99285-25; J3480; J7030; Q9967

== ENCOUNTER 2019-06-10 12:19 | Inpatient (IN) | payer OTHER ==
[2019-06-10] MEDS ORDERED: PIPERACILLIN/TAZOB 4.5 GM 4.5 GM/100 ML BAG IVPB ONE (13:04)
[2019-06-10] MEDS ORDERED: AZITHROMYCIN IVPB 500 MG/250 ML BAG IVPB ONE (13:04)
[2019-06-10] MEDS ORDERED: AZITHROMYCIN IVPB 500 MG in DEXTROSE 5%-WATER - 250 ML IVPB ONE (13:07)
[2019-06-10] MEDS ORDERED: PIPERACILLIN/TAZOB 4.5 GM 4.5 GM in DEXTROSE 5%-WATER 100 ML IVPB ONE (13:07)
[2019-06-10] MEDS ORDERED: VANCOMYCIN 1 GM in D5W (PRE-DOCKED) 1,000 MG/250 ML IVPB ONE (13:08)
[2019-06-10] MEDS ORDERED: SODIUM CHLORIDE 1,402 ML IV ONE (13:08)
--- NOTE | 2019-06-10 13:17 | PDOC ---
History of Present Illness - General Chief Complaint: SIRS, Suspected/Possible Stated Complaint: FEVER Time Seen by Provider: 06/10/19 12:28 History Source: EMS, Residential Records Exam Limitations: Clinical Condition - History of Present Illness Initial Comments: 06/10/19 13:11 83YOF with h/o HTN, IDDM, COPD on home O2, CHF, adrenal adenoma, Hammond's esophagus, cavitating lung mass, diverticulosis, GERD with stricture, gastroparesis, who was recently admitted to [facility] for PNA and discharged back to [place] yesterday, who returns to the ED BIBEMS for respiratory distress, cough, and hypoxia worsening despite antibiotics. Had a focal consolidation at admission and tx for PNA, no COVID-19 swab pending. She is DNR/DNI as confirmed by [place] paperwork and family member. Past History - Past Medical History Allergies/Adverse Reactions: Allergies Allergy/AdvReac Type Severity Reaction Status Date / Time No Known Allergies Allergy Verified 06/10/19 12:39 Home Medications: Ambulatory Orders Amlodipine Besylate [Norvasc -] 5 mg PO DAILY 03/22/14 Losartan Potassium 100 mg PO DAILY 03/23/14 Acetaminophen W/ Codeine #3 [Tylenol # 3 -] 1 tab PO TID PRN 04/20/16 Brimonidine Tartrate/Timolol [Combigan 0.2%-0.5% Eye Drops] 1 drop OU DAILY 04/20/16 Latanoprost 0.005% Eye Drops [Xalatan 0.005% Eye Drops -] 1 drop OU HS 04/20/16 Glipizide 5 mg PO DAILY 01/26/17 Pilocarpine 2% [Pilostat 2% -] 1 drop OP BID 10/03/18 Ascorbic Acid [Vitamin C] 500 mg PO DAILY 05/22/19 Dorzolamide HCl/Pf [Dorzolamide 2% Eye Drop] 1 drop OP BID 05/22/19 Multivitamins [Tab-A-Vit -] 1 tab PO DAILY 05/22/19 Polyethylene Glycol 3350 [Miralax 119 gm Btl -] 17 gm PO DAILY 05/22/19 Sennosides [Senna] 2 tab PO PRN 05/22/19 Silver Sulfadiazine 1% Top Cr [Silvadene -] 1 applic TP DAILY 05/22/19 Zinc Sulfate 220 mg PO DAILY 05/22/19 Docusate Sodium [Colace] 100 mg PO BID 06/03/19 Pantoprazole Sodium 40 mg PO DAILY 06/03/19 Albuterol 2.5/Ipratropium 0.5 [Duoneb -] 1 amp NEB BID PRN amp 06/08/19 Alprazolam [Xanax] 0.5 mg PO Q8H PRN tablet 06/08/19 Aa/Hydrolyzed Collagen, Whey [Lps 15-30 Liquid] 30 ml PO BID 06/10/19 Insulin Detemir [Levemir Flextouch] 8 unit SQ HS 06/10/19 Insulin Lispro [Admelog Solostar] 0 unit SQ ASDIR 06/10/19 predniSONE [Deltasone -] 10 mg PO DAILY 06/10/19 Anemia: No Asthma: No Cancer: No Cardiac Disorders: No CVA: No COPD: Yes CHF: Yes Dementia: No Diabetes: Yes GI Disorders: Yes (GERD) Disorders: No HTN: Yes Hypercholesterolemia: Yes Liver Disease: No Seizures: No Thyroid Disease: No - Surgical History Appendectomy: No Cardiac Surgery: No Cholecystectomy: No Lung Surgery: No Neurologic Surgery: Yes (SURGERY FOR HERNIATED DISC.) Orthopedic Surgery: Yes (BACK SURGERY) - Immunization History Immunization Up to Date: No - Psycho Social/Smoking Cessation Hx Smoking History: Smoker current status UNK Have you smoked in the past 12 months: No Number of Cigarettes Smoked Daily: 2 If you are a former smoker, when did you quit?: 10 days ago Information on smoking cessation initiated: No 'Breaking Loose' booklet given: 05/06/19 Hx Alcohol Use: No Drug/Substance Use Hx: No Substance Use Type: None Hx Substance Use Treatment: No Review of Systems - Review of Systems Able to Perform ROS?: No (altered mental state) *Physical Exam - Vital Signs Last Vital Signs Temp Pulse Resp BP Pulse Ox 99.1 F 111 H 12 107/47 L 99 06/10/19 12:36 06/10/19 12:36 06/10/19 12:36 06/10/19 12:36 06/10/19 12:36 - Physical Exam 06/10/19 13:36 GENERAL: elderly, frail, mild-moderate distress, ill-appearing, A/Ox4, answers questions appropriately, frequent cough, cachectic HEENT: PERRLA, EOMI, dry mucous membranes NECK/BACK: no midline ttp, no spinal stepoff or deformity, no hematoma, full ROM, neck supple CARDIOVASCULAR: regular rate/rhythm, no MGR, strong peripheral pulses, capillary refill <2 seconds, extremities wwp, no edema LUNGS/RESPIRATORY: mild respiratory distress, tachypneic, very coarse breath sounds bilaterally GI/ABDOMEN: symmetric [id number], normoactive BS, soft, no ttp, no midline pulsatile masses : no CVA tenderness EXTREMITIES: +muscle atrophy, no acute deformity SKIN: warm and dry, no pallor, no jaundice, no rash, no bruising, no skin breakdown, no cuts, no lesions NEUROLOGICAL: GCS 15, CN II-XII grossly intact, 5/5 strength proximally and distally, no facial droop Heart Score/ECG Review #1 Sinus rhythm, rate 99, normal axis and intervals, few PVCs, poor R wave progression, no additional ST-T changes ED Treatment Course - LABORATORY CBC & Chemistry Diagram: 06/13/19 06:00 06/13/19 06:00 - RADIOLOGY Radiology Studies Ordered: Category Date Time Status CHEST X-RAY PORTABLE* [RAD] Stat Radiology 06/10/19 13:08 Ordered Medical Decision Making - Critical Care Time Total Critical Care Time (minutes): 120 Critical Care Statement: The care of this patient involved high complexity decision making to prevent further life threatening deterioration of the patient's condition and/or to evaluate & treat vital organ system(s) failure or risk of failure. - Medical Decision Making 06/10/19 13:39 83YOF p/w cough, SOB, fever in setting of recent admission for similar symptoms, now worse Initial Vital Signs Temp Pulse Resp BP Pulse Ox 99.1 F 111 H 12 107/47 L 99 06/10/19 12:36 06/10/19 12:36 06/10/19 12:36 06/10/19 12:36 06/10/19 12:36 Exam: As noted in Physical Exam section. DDX IBNLT: COVID-19, influenza, PNA, bronchitis, COPD, asthma, CHF, other lung disease, other viral URI, laryngitis, tracheitis, etc. W/U ordered: Sepsis order set EKG CXR COVD Flu TX ordered: [facility] Siomara Castañeda EKG: Reviewed; results as noted in ECG Review section. RAD/CHEST X-RAY PORTABLE* HISTORY PROVIDED: Rule out sepsis. A single frontal portable projection of the chest at 1:38 PM is submitted. Since a prior study of 06/03/2019, the heart size remains enlarged. There are increased interstitial markings diffusely that are most probably chronic in nature. Increased density is noted within the right upper lobe that may have slightly worsened. The possibility of a developing infiltrate in this location cannot be excluded. There are also remains slight blunting of the left costophrenic angle suspicious for a trace amount of pleural fluid and basilar atelectasis. IMPRESSION: Possible developing infiltrate right upper lobe. Clinical correlation and continued follow-up recommended. Please see above discussion. Laboratory Tests 06/10/19 06/10/19 06/10/19 12:33 12:33 12:33 WBC 9.4 RBC 3.67 Hgb 11.1 Hct 34.5 MCV 94.0 MCH 30.3 MCHC 32.2 RDW 15.2 Plt Count 135 D MPV 11.3 H D Absolute Neuts (auto) 7.6 Neutrophils % 80.9 Neutrophils % (Manual) 80.0 Band Neutrophils % 6.1 Lymphocytes % 13.2 D Lymphocytes % (Manual) 4.1 L D Monocytes % 5.7 D Monocytes % (Manual) 6 Eosinophils % 0.1 Eosinophils % (Manual) 0.0 D Basophils % 0.1 Basophils % (Manual) 0.0 Myelocytes % (Man) 0 Promyelocytes % (Man) 0 Blast Cells % (Manual) 0 Nucleated RBC % 0 Metamyelocytes 1 D Hypochromia 0 Platelet Estimate Decreased Polychromasia 0 Poikilocytosis 0 Anisocytosis 0 Microcytosis 0 Macrocytosis 0 PT with INR 9.50 L INR 0.81 L PTT (Actin FS) 36.9 H VBG pH POC VBG pCO2 POC VBG pO2 VBG HCO3 VBG O2 Sat (Pamella) VBG Base Excess Sodium Potassium Chloride Carbon Dioxide Anion Gap BUN Creatinine Est GFR (CKD-EPI)AfAm Est GFR (CKD-EPI)NonAf Random Glucose Lactic Acid Calcium Total Bilirubin AST ALT Alkaline Phosphatase Creatine Kinase CK-MB (CK-2) Troponin I < 0.02 Total Protein Albumin Urine Color Urine Appearance Urine pH Ur Specific [place] Urine Protein Urine Glucose (UA) Urine Ketones Urine Blood Urine Nitrite Urine Bilirubin Urine Urobilinogen Ur Leukocyte Esterase Influenza A (Rapid) Influenza B (Rapid) 06/10/19 06/10/19 06/10/19 12:33 12:33 12:33 WBC RBC Hgb Hct MCV MCH MCHC RDW Plt Count MPV Absolute Neuts (auto) Neutrophils % Neutrophils % (Manual) Band Neutrophils % Lymphocytes % Lymphocytes % (Manual) Monocytes % Monocytes % (Manual) Eosinophils % Eosinophils % (Manual) Basophils % Basophils % (Manual) Myelocytes % (Man) Promyelocytes % (Man) Blast Cells % (Manual) Nucleated RBC % Metamyelocytes Hypochromia Platelet Estimate Polychromasia Poikilocytosis Anisocytosis Microcytosis Macrocytosis PT with INR INR PTT (Actin FS) VBG pH Cancelled POC VBG pCO2 Cancelled POC VBG pO2 Cancelled VBG HCO3 Cancelled VBG O2 Sat (Pamella) Cancelled VBG Base Excess Cancelled Sodium 143 Potassium 3.5 Chloride 103 Carbon Dioxide 32 Anion Gap 9 BUN 39.8 H Creatinine 1.0 Est GFR (CKD-EPI)AfAm 59.91 Est GFR (CKD-EPI)NonAf 51.69 Random Glucose 122 H Lactic Acid 1.6 Calcium 8.1 L Total Bilirubin 0.4 AST 36 ALT 23 Alkaline Phosphatase 112 Creatine Kinase 90 CK-MB (CK-2) 1.7 Troponin I Total Protein 5.0 L Albumin 1.4 L Urine Color Urine Appearance Urine pH Ur Specific [place] Urine Protein Urine Glucose (UA) Urine Ketones Urine Blood Urine Nitrite Urine Bilirubin Urine Urobilinogen Ur Leukocyte Esterase Influenza A (Rapid) Influenza B (Rapid) 06/10/19 06/10/19 13:00 13:20 WBC RBC Hgb Hct MCV MCH MCHC RDW Plt Count MPV Absolute Neuts (auto) Neutrophils % Neutrophils % (Manual) Band Neutrophils % Lymphocytes % Lymphocytes % (Manual) Monocytes % Monocytes % (Manual) Eosinophils % Eosinophils % (Manual) Basophils % Basophils % (Manual) Myelocytes % (Man) Promyelocytes % (Man) Blast Cells % (Manual) Nucleated RBC % Metamyelocytes Hypochromia Platelet Estimate Polychromasia Poikilocytosis Anisocytosis Microcytosis Macrocytosis PT with INR INR PTT (Actin FS) VBG pH POC VBG pCO2 POC VBG pO2 VBG HCO3 VBG O2 Sat (Pamella) VBG Base Excess Sodium Potassium Chloride Carbon Dioxide Anion Gap BUN Creatinine Est GFR (CKD-EPI)AfAm Est GFR (CKD-EPI)NonAf Random Glucose Lactic Acid Calcium Total Bilirubin AST ALT Alkaline Phosphatase Creatine Kinase CK-MB (CK-2) Troponin I Total Protein Albumin Urine Color Dk yellow Urine Appearance Cloudy Urine pH 5.0 Ur Specific [place] 1.019 Urine Protein Trace Urine Glucose (UA) Negative Urine Ketones Trace H Urine Blood Negative Urine Nitrite Negative Urine Bilirubin Negative Urine Urobilinogen 0.2 Ur Leukocyte Esterase Negative Influenza A (Rapid) Negative Influenza B (Rapid) Negative Given respiratory distress and new baseline O2 requirement to maintain sats the Pt is unsafe for discharge at this time. They require further hospital observation, workup, and treatment. Microblog sent to [facility] for admission. Blank Decision to Admit order is placed per ED protocol. 06/10/19 15:[address] Rahman, patient admitted to [facility], Decision to Admit order adjusted. Vital Signs Temperature 99.1 F 06/10/19 13:00 Pulse Rate 41 L 06/10/19 17:15 Respiratory Rate 16 06/10/19 17:15 Blood Pressure 83/39 L 06/10/19 17:15 O2 Sat by Pulse Oximetry (%) 97 06/10/19 17:15 06/10/19 17:19 Patient's BP dropped as low as 77/45 after 1 liter NS. Second liter ggt rate increased and BP up to 110s/70s. Maintained 110s/70s BP for an hour but then became intermittently bradycardic to low 40s. CVC placed. 06/10/19 17:28 Spoke with ICU resident and they will come evaluate, consult placed. Discharge - Discharge Information Problems reviewed: Yes Clinical Impression/Diagnosis: Respiratory distress, Hypoxia, Suspected 2019 novel coronavirus infection Sepsis Qualifiers: Sepsis type: sepsis due to unspecified organism Sepsis acute organ dysfunction status: unspecified Qualified Code(s): A41.9 - Sepsis, unspecified organism Pneumonia Qualifiers: Pneumonia type: due to unspecified organism Laterality: right Condition: Guarded - Admission Yes - Follow up/Referral - Patient Discharge Instructions - Post Discharge Activity
[2019-06-10 13:29] LABS: BASO % 0.1 % (0-2.0); EOS % 0.1 % (0-4.5); HEMATOCRIT 34.5 % (32.4-45.2); HEMOGLOBIN 11.1 GM/dL (10.7-15.3); LYMPH % 13.2 % (8-40); MCH 30.3 pg (25.7-33.7); MCHC 32.2 g/dl (32.0-36.0); MEAN PLT VOLUME 11.3 fl (7.5-11.1); MONO % 5.7 % (3.8-10.2); NEUT % 80.9 % (42.8-82.8); PLATELET COUNT 135 K/MM3 (134-434); RBC 3.67 M/mm3 (3.60-5.2); RDW 15.2 % (11.6-15.6); WHITE BLOOD COUNT 9.4 K/mm3 (4.0-10.0)
[2019-06-10 13:31] LABS: INR 0.81 (0.83-1.09); PROTHROMBIN TIME (PATIENT) 9.5 SEC (9.7-13.0)
[2019-06-10 13:33] LABS: ACTIVATED PTT 36.9 SECONDS (25.2-36.5)
[2019-06-10 13:42] LABS: URINE APPEARANCE CLOUDY; URINE BILIRUBIN NEGATIVE (NEGATIVE); URINE COLOR DK YELLOW; URINE GLUCOSE (UA) NEGATIVE (NEGATIVE); URINE KETONE TRACE (NEGATIVE); URINE LEUK ESTERASE NEGATIVE (NEGATIVE); URINE NITRITE NEGATIVE (NEGATIVE); URINE PROTEIN TRACE (NEGATIVE); URINE UROBILINOGEN 0.2 mg/dL (0.2-1.0)
[2019-06-10 13:52] LABS: ALBUMIN 1.4 g/dl (3.4-5.0); BILIRUBIN,TOTAL 0.4 mg/dL (0.2-1); BLOOD UREA NITROGEN 39.8 mg/dL (7-18); CALCIUM 8.1 mg/dL (8.5-10.1); POTASSIUM 3.5 mmol/L (3.5-5.1)
--- NOTE | 2019-06-10 13:58 | PDOC ---
Documentation entered by Sally Song SCRIBE, acting as scribe for Chuy Marcos MD. Chuy Marcos MD: This documentation has been prepared by the Nohemi humphries Nirvannie, SCRIBE, under my direction and personally reviewed by me in its entirety. I confirm that the documentation accurately reflects all work, treatment, procedures, and medical decision making performed by me. Attending Attestation - Resident Resident Name: ElieJustyna - ED Attending Attestation I have performed the following: I have examined & evaluated the patient, The case was reviewed & discussed with the resident, I agree w/resident's findings & plan, Exceptions are as noted - HPI HPI: 06/10/19 13:23 The patient is a 83 year old female, with a significant past medical history of hypertension, hyperlipidemia, diabetes mellitus, COPD (on home O2), recent admission to [facility] for PNA and discharged back to [place] yesterday who presents to the emergency department via EMS from [facility] with fever and hypoxia. Per [place] paperwork: 105/57 mmHg 100.1F - Physicial Exam PE: 06/10/19 13:52 See resident exam - Critical Care Time Total Critical Care Time: 120 Critical Care Statement: The care of this patient involved high complexity decision making to prevent further life threatening deterioration of the patient's condition and/or to evaluate & treat vital organ system(s) failure or risk of failure. - Medical Decision Making 06/10/19 13:52 83 F with fever and hypoxia. Likely recurrent PNA with concurrent COPD exacerbation. Will r/o COVID. - Labs, cultures - Covid, flu swabs - IVF, tylenol, abx - Admit 06/10/19 17:16 Pt persistently hypotensive 80s/30s despite 3L NS. Will place CVC and start pressors Pt is DNR/DNI, unable to reach next of kin to discuss goals of care. Discharge - Discharge Information Problems reviewed: Yes Clinical Impression/Diagnosis: Respiratory distress, Hypoxia, Suspected 2019 novel coronavirus infection Sepsis Qualifiers: Sepsis type: sepsis due to unspecified organism Sepsis acute organ dysfunction status: unspecified Qualified Code(s): A41.9 - Sepsis, unspecified organism Pneumonia Qualifiers: Pneumonia type: due to unspecified organism Laterality: right Qualified Code(s): J18.9 - Pneumonia, unspecified organism Condition: Guarded - Follow up/Referral - Patient Discharge Instructions - Post Discharge Activity
[2019-06-10 14:01] LABS: ANISOCYTOSIS 0; MACROCYTOSIS 0; PLATELET ESTIMATE DECREASED
--- NOTE | 2019-06-10 16:00 | HP ---
Admitting History and Physical - Primary Care Physician PCP: Ashlee Rahman - Admission Chief Complaint: sob History of Present Illness: 83YOF with h/o HTN, IDDM, COPD on home O2, CHF, adrenal adenoma, Hammond's esophagus, cavitating lung mass, diverticulosis, GERD with stricture, gastroparesis, who was recently admitted to [facility] for PNA and discharged back to [place] yesterday, who returns to the ED BIBEMS for respiratory distress, cough, and hypoxia worsening despite antibiotics. Had a focal consolidation at admission and tx for PNA, no COVID-19 swab pending. She is DNR/DNI as confirmed by [place] paperwork and family member. History Source: Medical Record Limitations to Obtaining History: Clinical Condition, Dementia - Past Medical History Cardiovascular: Yes: CHF, HTN Pulmonary: Yes: COPD, O2 Dependent Gastrointestinal: Yes: Gastritis, GERD Hepatobiliary: Yes: Other (fatty liver) Musculoskeletal: Yes: Chronic low back pain Endocrine: Yes: Diabetes Mellitus - Past Surgical History Past Surgical History: Yes: Colonoscopy, Hysterectomy - Smoking History Smoking history: Smoker current status UNK Have you smoked in the past 12 months: No Aproximately how many cigarettes per day: 2 If you are a former smoker, when did you quit?: 10 days ago - Alcohol/Substance Use Hx Alcohol Use: No History of Substance Use: reports: None - Social History ADL: Independent 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 History of Recent Travel: No Home Medications - Allergies Allergies/Adverse Reactions: Allergies Allergy/AdvReac Type Severity Reaction Status Date / Time No Known Allergies Allergy Verified 06/10/19 12:39 - Home Medications Home Medications: Ambulatory Orders Amlodipine Besylate [Norvasc -] 5 mg PO DAILY 03/22/14 Losartan Potassium 100 mg PO DAILY 03/23/14 Acetaminophen W/ Codeine #3 [Tylenol # 3 -] 1 tab PO TID PRN 04/20/16 Brimonidine Tartrate/Timolol [Combigan 0.2%-0.5% Eye Drops] 1 drop OU DAILY 04/20/16 Latanoprost 0.005% Eye Drops [Xalatan 0.005% Eye Drops -] 1 drop OU HS 04/20/16 Glipizide 5 mg PO DAILY 01/26/17 Pilocarpine 2% [Pilostat 2% -] 1 drop OP BID 10/03/18 Ascorbic Acid [Vitamin C] 500 mg PO DAILY 05/22/19 Dorzolamide HCl/Pf [Dorzolamide 2% Eye Drop] 1 drop OP BID 05/22/19 Multivitamins [Tab-A-Vit -] 1 tab PO DAILY 05/22/19 Polyethylene Glycol 3350 [Miralax 119 gm Btl -] 17 gm PO DAILY 05/22/19 Sennosides [Senna] 2 tab PO PRN 05/22/19 Silver Sulfadiazine 1% Top Cr [Silvadene -] 1 applic TP DAILY 05/22/19 Zinc Sulfate 220 mg PO DAILY 05/22/19 Docusate Sodium [Colace] 100 mg PO BID 06/03/19 Pantoprazole Sodium 40 mg PO DAILY 06/03/19 Albuterol 2.5/Ipratropium 0.5 [Duoneb -] 1 amp NEB BID PRN amp 06/08/19 Alprazolam [Xanax] 0.5 mg PO Q8H PRN tablet 06/08/19 Aa/Hydrolyzed Collagen, Whey [Lps 15-30 Liquid] 30 ml PO BID 06/10/19 Insulin Detemir [Levemir Flextouch] 8 unit SQ HS 06/10/19 Insulin Lispro [Admelog Solostar] 0 unit SQ ASDIR 06/10/19 predniSONE [Deltasone -] 10 mg PO DAILY 06/10/19 Physical Examination Vital Signs: Vital Signs Temperature 99.1 F 06/10/19 13:00 Pulse Rate 77 06/10/19 15:45 Respiratory Rate 17 06/10/19 15:45 Blood Pressure 84/51 L 06/10/19 15:45 O2 Sat by Pulse Oximetry (%) 93 L 06/10/19 15:45 Constitutional: Yes: Diaphoresis, Moderate Distress Eyes: Yes: Other (limited exam, but apparent normal) HENT: Yes: Atraumatic, Normocephalic Neck: Yes: WNL, Supple, Trachea Midline Cardiovascular: Yes: Regular Rate and Rhythm Respiratory: Yes: Regular, CTA Bilaterally Gastrointestinal: Yes: Normal Bowel Sounds, Soft Extremities: Yes: WNL Edema: No Neurological: Yes: Other (lethargic and responds to her name, , moves her extremities spontaneously, and to pain,) ...Motor Strength: WNL (limited exam, but moves ext spontaeously and withdraws to pain,) Labs: CBC, BMP 06/10/19 12:33 06/10/19 12:33 Imaging - Results Chest X-ray: Report Reviewed, Image Reviewed Problem List - Problems (1) Hypoxia Code(s): R09.02 - HYPOXEMIA (2) Pneumonia Problems reviewed: Yes Code(s): J18.9 - PNEUMONIA, UNSPECIFIED ORGANISM Qualifiers: Pneumonia type: due to unspecified organism Laterality: right (3) Respiratory distress Code(s): R06.03 - ACUTE RESPIRATORY DISTRESS (4) Sepsis Code(s): A41.9 - SEPSIS, UNSPECIFIED ORGANISM Qualifiers: Sepsis type: sepsis due to unspecified organism Sepsis acute organ dysfunction status: unspecified Qualified Code(s): A41.9 - Sepsis, unspecified organism (5) Suspected 2019 novel coronavirus infection Code(s): R68.89 - OTHER GENERAL SYMPTOMS AND SIGNS Assessment/Plan 83YOF with h/o HTN, IDDM, COPD on home O2, CHF, adrenal adenoma, Hammond's esophagus, cavitating lung mass, diverticulosis, GERD with stricture, gastroparesis, who was recently admitted to [facility] for PNA and discharged back to [place] yesterday, who returns to the ED BIBEMS for respiratory distress, cough, and hypoxia worsening despite antibiotics. 1. pneumonia, will continue iv abx and oxygen, in the ER on non deirdre mask, 100% and sat in low 90s, became hypotensive and on 2nd litre of ivf, repeat bp inc to 110/70 continue neb and start the solu med was on prednisone, will give the stress dose, 2. dm will start the riss, 3. hypotension and joe hold off anti hypertensive, 4. joe keep him npo for risk of aspiration and will cont ivf, reassess in am 5. r/o covid 19 pending, 6.check the labs in am Visit type - Emergency Visit Emergency Visit: Yes ED Registration Date: 06/10/19 Care time: The patient presented to the Emergency Department on the above date and was hospitalized for further evaluation of their emergent condition. - New Patient This patient is new to me today: Yes Date on this admission: 06/12/19 - Critical Care Critical Care patient: Yes Total Critical Care Time (in minutes): 45 Critical Care Statement: The care of this patient involved high complexity decision making to prevent further life threatening deterioration of the patient's condition and/or to evaluate & treat vital organ system(s) failure or risk of failure.
[2019-06-10] MEDS ORDERED: ACETAMINOPHEN 325 MG TABLET (FP) PO PRN (16:07)
[2019-06-10] MEDS ORDERED: ALBUTEROL SO4 2.5/IPRATROPIUM 0.5 INH SOL 3 ML VIAL.NEB. NEB PRN ×2 (16:09→16:10)
[2019-06-10] MEDS ORDERED: methylPREDNISolone NA SUCC 125 MG/2 ML VIAL IVPUSH ONE (16:25)
[2019-06-10] MEDS ORDERED: ENOXAPARIN NA (PORCINE) 40 MG/0.4 ML DISP.SYRIN SQ ONE (16:44)
[2019-06-10] MEDS ORDERED: PIPERACILLIN/TAZOB 3.375 GM 3.375 GM/50 ML BAG IVPB ONE (16:44)
[2019-06-10] MEDS ORDERED: methylPREDNISolone NA SUCC 125 MG/2 ML VIAL ONE (16:44)
[2019-06-10] MEDS ORDERED: INSULIN SLIDING SCALE (NOVOLOG) 1 VIAL SQ SCH (16:45)
[2019-06-10] MEDS ORDERED: D5-1/2NS+10 MEQ KCL - 10 MEQ/1,000 ML INFUS.BAG IV SCH (17:00)
[2019-06-10] MEDS: ENOXAPARIN NA (PORCINE) 40 MG/0.4 ML DISP.SYRIN SQ SCH (17:03)
[2019-06-10] MEDS ORDERED: PIPERACILLIN/TAZOB 3.375 GM 3.375 GM in DEXTROSE 5%-WATER - 50 ML IVPB SCH (18:00)
--- NOTE | 2019-06-10 18:20 | CONSULT ---
Consultation: REQUESTING PROVIDER: Dr. Marcos CONSULT REQUEST: We have been asked to medically evaluate this patient for septic shock/ respiratory distress. HISTORY OF PRESENT ILLNESS: Patient is an 83 year old female with past medical history of HTN, IDDM, COPD on home O2, CHF, adrenal adenoma, Hammond's esophagus, cavitating lung mass, diverticulosis, GERD with stricture, gastroparesis, [facility] due to [facility] distress, cough and hypoxia. Patient was discharged yesterday form [facility] where she was found to have pneumonia and treated with IV Zosyn and sent back to [place] on Augmentin. Today, was brought in because she was found reported to be in respiratory distress, cough and hypoxic on supplemental O2. She was also reported to have low grade fever of 100.1F as per [place] records. At the ED, patient was found to be hypotensive, not responsive to IVF boluses. Central line was placed and levophed drip was started. Patient was also started on IV Zosyn and Vancomycin. Patient was placed on venti mask. PMHx: PSHx: Allergies: PHYSICAL EXAMINATION Vital Signs Temperature 99.1 F 06/10/19 13:00 Pulse Rate 89 06/10/19 20:40 Respiratory Rate 14 06/10/19 20:40 Blood Pressure 130/47 L 06/10/19 20:40 O2 Sat by Pulse Oximetry (%) 95 06/10/19 20:40 GENERAL: awake, alert, oriented, on venti mask EYES: PERRLA EARS, NOSE, THROAT: Dry mucous membranes. NECK: Normal range of motion, supple LUNGS: Coarse breath sounds bilaterally HEART: Regular rate and rhythm, normal S1 and S2 ABDOMEN: Soft, nontender, not distended, normoactive bowel sounds LOWER EXTREMITIES: 2+ pulses, warm, well-perfused. No peripheral edema. NEUROLOGICAL: Cranial nerves II-XII grossly intact. Normal speech. SKIN: Warm, dry, normal turgor. Laboratory Results - last 24 hr 06/10/19 06/10/19 06/10/19 12:33 12:33 12:33 WBC 9.4 RBC 3.67 Hgb 11.1 Hct 34.5 MCV 94.0 MCH 30.3 MCHC 32.2 RDW 15.2 Plt Count 135 D MPV 11.3 H D Absolute Neuts (auto) 7.6 Neutrophils % 80.9 Neutrophils % (Manual) 80.0 Band Neutrophils % 6.1 Lymphocytes % 13.2 D Lymphocytes % (Manual) 4.1 L D Monocytes % 5.7 D Monocytes % (Manual) 6 Eosinophils % 0.1 Eosinophils % (Manual) 0.0 D Basophils % 0.1 Basophils % (Manual) 0.0 Myelocytes % (Man) 0 Promyelocytes % (Man) 0 Blast Cells % (Manual) 0 Nucleated RBC % 0 Metamyelocytes 1 D Hypochromia 0 Platelet Estimate Decreased Polychromasia 0 Poikilocytosis 0 Anisocytosis 0 Microcytosis 0 Macrocytosis 0 PT with INR 9.50 L INR 0.81 L PTT (Actin FS) 36.9 H VBG pH POC VBG pCO2 POC VBG pO2 VBG HCO3 VBG O2 Sat (Pamella) VBG Base Excess Sodium Potassium Chloride Carbon Dioxide Anion Gap BUN Creatinine Est GFR (CKD-EPI)AfAm Est GFR (CKD-EPI)NonAf POC Glucometer Random Glucose Lactic Acid Calcium Total Bilirubin AST ALT Alkaline Phosphatase Creatine Kinase CK-MB (CK-2) Troponin I < 0.02 Total Protein Albumin Urine Color Urine Appearance Urine pH Ur Specific [place] Urine Protein Urine Glucose (UA) Urine Ketones Urine Blood Urine Nitrite Urine Bilirubin Urine Urobilinogen Ur Leukocyte Esterase Influenza A (Rapid) Influenza B (Rapid) 06/10/19 06/10/19 06/10/19 12:33 12:33 12:33 WBC RBC Hgb Hct MCV MCH MCHC RDW Plt Count MPV Absolute Neuts (auto) Neutrophils % Neutrophils % (Manual) Band Neutrophils % Lymphocytes % Lymphocytes % (Manual) Monocytes % Monocytes % (Manual) Eosinophils % Eosinophils % (Manual) Basophils % Basophils % (Manual) Myelocytes % (Man) Promyelocytes % (Man) Blast Cells % (Manual) Nucleated RBC % Metamyelocytes Hypochromia Platelet Estimate Polychromasia Poikilocytosis Anisocytosis Microcytosis Macrocytosis PT with INR INR PTT (Actin FS) VBG pH Cancelled POC VBG pCO2 Cancelled POC VBG pO2 Cancelled VBG HCO3 Cancelled VBG O2 Sat (Pamella) Cancelled VBG Base Excess Cancelled Sodium 143 Potassium 3.5 Chloride 103 Carbon Dioxide 32 Anion Gap 9 BUN 39.8 H Creatinine 1.0 Est GFR (CKD-EPI)AfAm 59.91 Est GFR (CKD-EPI)NonAf 51.69 POC Glucometer Random Glucose 122 H Lactic Acid 1.6 Calcium 8.1 L Total Bilirubin 0.4 AST 36 ALT 23 Alkaline Phosphatase 112 Creatine Kinase 90 CK-MB (CK-2) 1.7 Troponin I Total Protein 5.0 L Albumin 1.4 L Urine Color Urine Appearance Urine pH Ur Specific [place] Urine Protein Urine Glucose (UA) Urine Ketones Urine Blood Urine Nitrite Urine Bilirubin Urine Urobilinogen Ur Leukocyte Esterase Influenza A (Rapid) Influenza B (Rapid) 06/10/19 06/10/19 06/10/19 13:00 13:20 17:09 WBC RBC Hgb Hct MCV MCH MCHC RDW Plt Count MPV Absolute Neuts (auto) Neutrophils % Neutrophils % (Manual) Band Neutrophils % Lymphocytes % Lymphocytes % (Manual) Monocytes % Monocytes % (Manual) Eosinophils % Eosinophils % (Manual) Basophils % Basophils % (Manual) Myelocytes % (Man) Promyelocytes % (Man) Blast Cells % (Manual) Nucleated RBC % Metamyelocytes Hypochromia Platelet Estimate Polychromasia Poikilocytosis Anisocytosis Microcytosis Macrocytosis PT with INR INR PTT (Actin FS) VBG pH POC VBG pCO2 POC VBG pO2 VBG HCO3 VBG O2 Sat (Pamella) VBG Base Excess Sodium Potassium Chloride Carbon Dioxide Anion Gap BUN Creatinine Est GFR (CKD-EPI)AfAm Est GFR (CKD-EPI)NonAf POC Glucometer 243 Random Glucose Lactic Acid Calcium Total Bilirubin AST ALT Alkaline Phosphatase Creatine Kinase CK-MB (CK-2) Troponin I Total Protein Albumin Urine Color Dk yellow Urine Appearance Cloudy Urine pH 5.0 Ur Specific [place] 1.019 Urine Protein Trace Urine Glucose (UA) Negative Urine Ketones Trace H Urine Blood Negative Urine Nitrite Negative Urine Bilirubin Negative Urine Urobilinogen 0.2 Ur Leukocyte Esterase Negative Influenza A (Rapid) Negative Influenza B (Rapid) Negative Active Medications Generic Name Dose Route Start Last Admin Trade Name Freq PRN Reason Stop Dose Admin Acetaminophen 650 mg 06/10/19 16:07 Tylenol - PO Q6H PRN Fever Enoxaparin Sodium 40 mg 06/10/19 16:15 06/10/19 17:03 Lovenox - SQ 40 mg DAILY [facility] Administration Azithromycin 250 mg/ Dextrose 250 mls @ 250 mls/hr 06/11/19 10:00 IVPB 06/15/19 09:59 DAILY [facility]STO Piperacillin Sod/Tazobactam 50 mls @ 100 mls/hr 06/10/19 18:00 Sod 3.375 gm/ Dextrose IVPB Q8H-IV [facility] Protocol Piperacillin Sod/Tazobactam 50 mls @ 100 mls/hr 06/10/19 18:00 Sod 3.375 gm/ Dextrose IVPB 06/11/19 17:59 Q8H-IV [facility] Protocol Potassium Chloride/Dextrose/Sod Cl 10 meq in 1,000 mls @ 75 mls/hr 06/10/19 17:00 D5-1/2ns+10 Meq Kcl - IV ASDIR [facility] Insulin Aspart 1 vial 06/10/19 16:45 06/10/19 17:24 Novolog Vial Sliding Scale - SQ Not Given TIDAC [facility] Protocol ASSESSMENT/PLAN: Patient is an 83 year old female with past medical history of HTN, IDDM, COPD on home O2, CHF, adrenal adenoma, Hammond's esophagus, cavitating lung mass, diverticulosis, GERD with stricture, gastroparesis, [facility], due to [facility] distress, cough and hypoxia. #Neurology -awake, alert #Cardiology -Currently hypotensive, on pressors -hold anti-HTN medications #Pulmonology -Acute hypoxic respiratory distress, likely pneumonia -supplemental oxygen to keep SpO2 >90% -continue inhaled bronchodilators #Renal -renal function stable -monitor I&O, creatinine #ID -Septic shock likely 2/2 pneumonia, ?aspiration -r/o covid -sputum culture, urine antigens pending -influenza negative -covid pending -Vanc and Zosyn given at the ED -will continue Zosyn and Azithromycin -ID (Dr. Dai) consulted. -gentle IVF hydration -Levophed started, titrate prn to maintain MAP >65 #Endo -Insulin sliding scale implemented -BGM TIDAC #FEN -IV NS @ 42cc/hr -Routine bmp monitoring -NPO #Prophylaxis -Lovenox 40mg sq daily #Disposition -DNR/DNI -ICU for closer monitoring Dispo: We will continue to follow the patient. Thank you for this consultative opportunity. Visit type - Emergency Visit Emergency Visit: Yes ED Registration Date: 06/10/19 Care time: The patient presented to the Emergency Department on the above date and was hospitalized for further evaluation of their emergent condition. - New Patient This patient is new to me today: Yes Date on this admission: 06/10/19 - Critical Care Critical Care patient: Yes Total Critical Care Time (in minutes): 35 Critical Care Statement: The care of this patient involved high complexity decision making to prevent further life threatening deterioration of the patie nt's condition and/or to evaluate & treat vital organ system(s) failure or risk of failure. ATTENDING PHYSICIAN STATEMENT I saw and evaluated the patient. I reviewed the resident's note and discussed the case with the resident. I agree with the resident's findings and plan as documented. SUBJECTIVE: OBJECTIVE: ASSESSMENT AND PLAN:
[2019-06-10 19:42] LABS: VENOUS PC02 54.6 mmHg (38-52); VENOUS PH 7.32 (7.31-7.41); VENOUS PO2 51.1 mmHg (28-48)
[2019-06-10] MEDS: NOREPINEPHRINE BITARTRATE 8,000 MCG in DEXTROSE 5%-WATER - 492 ML IV SCH (19:45)
[2019-06-10] MEDS: SODIUM CHLORIDE 1,000 ML IV SCH (20:01)
[2019-06-10] MEDS: PIPERACILLIN/TAZOB 3.375 GM 3.375 GM in DEXTROSE 5%-WATER - 50 ML IVPB SCH (20:21)
[2019-06-11] MEDS ORDERED: PIPERACILLIN/TAZOB 3.375 GM 3.375 GM/50 ML BAG IVPB ONE ×2 (03:13→09:34)
[2019-06-11] MEDS: PIPERACILLIN/TAZOB 3.375 GM 3.375 GM in DEXTROSE 5%-WATER - 50 ML IVPB SCH ×4 (03:20→12:59)
[2019-06-11 06:47] LABS: BASO % 0.1 % (0-2.0); EOS % 0.3 % (0-4.5); HEMATOCRIT 31.6 % (32.4-45.2); LYMPH % 6.6 % (8-40); MCH 30.6 pg (25.7-33.7); MCHC 31.7 g/dl (32.0-36.0); MEAN CELL VOLUME 96.4 fl (80-96); MEAN PLT VOLUME 11.6 fl (7.5-11.1); MONO % 2.6 % (3.8-10.2); NEUT % 90.4 % (42.8-82.8); PLATELET COUNT 183 K/MM3 (134-434); RBC 3.28 M/mm3 (3.60-5.2); RDW 15.6 % (11.6-15.6); WHITE BLOOD COUNT 9.9 K/mm3 (4.0-10.0)
[2019-06-11] MEDS: INSULIN SLIDING SCALE (NOVOLOG) 1 VIAL SQ SCH ×3 (07:00→18:03)
[2019-06-11 07:22] LABS: ALBUMIN 1.4 g/dl (3.4-5.0); BILIRUBIN,TOTAL 0.4 mg/dL (0.2-1); BLOOD UREA NITROGEN 45.6 mg/dL (7-18); CALCIUM 7.7 mg/dL (8.5-10.1); CREATININE 1.1 mg/dL (0.55-1.3); MAGNESIUM 2.1 mg/dL (1.8-2.4); PHOSPHOROUS 5.3 mg/dL (2.5-4.9); POTASSIUM 3.7 mmol/L (3.5-5.1); TOT PROT 5.2 g/dl (6.4-8.2)
[2019-06-11] MEDS ORDERED: ENOXAPARIN NA (PORCINE) 40 MG/0.4 ML DISP.SYRIN SQ ONE (09:34)
[2019-06-11] MEDS: POLYETHYLENE GLYCOL 3350 119 GM BTL PO SCH (09:51)
[2019-06-11] MEDS ORDERED: PATIENT'S OWN MEDICATION (NON-FORMULARY) (Brimonidine Tartrate/Timolol [Combigan 0.2%-0.5% OU SCH (10:00)
[2019-06-11] MEDS: ENOXAPARIN NA (PORCINE) 40 MG/0.4 ML DISP.SYRIN SQ SCH (10:00)
[2019-06-11] MEDS ORDERED: PILOCARPINE 2% OPHTHALMIC SOLUTION 15 ML BOTTLE OP SCH (10:00)
[2019-06-11] MEDS ORDERED: PATIENT'S OWN MEDICATION (NON-FORMULARY) (Dorzolamide Hcl/Pf [Dorzolamide 2% Eye Drop] 1 D OP SCH (10:00)
[2019-06-11] MEDS ORDERED: SENNOSIDES 8.6MG TABLET (FP) PO PRN (10:00)
--- NOTE | 2019-06-11 10:00 | EKG ---
Test Reason : Blood Pressure : / mmHG Vent. Rate : 099 BPM Atrial Rate : 099 BPM P-R Int : 124 ms QRS Dur : 078 ms QT Int : 352 ms P-R-T Axes : 085 064 109 degrees QTc Int : 451 ms SINUS RHYTHM WITH OCCASIONAL PREMATURE VENTRICULAR COMPLEXES CANNOT RULE OUT ANTERIOR INFARCT (CITED ON OR BEFORE 05-MAY-2019) ABNORMAL ECG WHEN COMPARED WITH ECG OF 03-JUN-2019 15:33, PREMATURE VENTRICULAR COMPLEXES ARE NOW PRESENT ABERRANT CONDUCTION IS NO LONGER PRESENT SERIAL CHANGES OF ANTERIOR INFARCT PRESENT Confirmed by WENDY RAYA MD ([id number]) on 06/11/2019 10:00:02 AM Referred By: Confirmed By:WENDY RAYA MD
[2019-06-11] MEDS: BRIMONIDINE TARTRATE 0.2% OPHTHALMIC 5 ML BOTTLE OU SCH ×2 (10:12→22:00)
[2019-06-11] MEDS: TIMOLOL 0.5% OPHTHALMIC SOL 5 ML BOTTLE OU SCH ×2 (10:13→22:00)
[2019-06-11] MEDS: DOCUSATE SODIUM 100 MG CAPSULE (FP) PO SCH ×2 (10:13→22:00)
[2019-06-11 10:24] LABS: ANISOCYTOSIS 1+; MACROCYTOSIS 1+; PLATELET ESTIMATE NORMAL
[2019-06-11] MEDS: AZITHROMYCIN IVPB 250 MG in DEXTROSE 5%-WATER - 250 ML IVPB SCH (11:20)
--- NOTE | 2019-06-11 12:22 | CON.ID ---
Consult Consult Specialty:: infectious diseases Referred by:: hospitalist Reason for Consultation:: septic shock - History of Present Illness Chief Complaint: weakness,shock cough History of Present Illness: 83YOF with h/o HTN, IDDM, COPD on home O2, CHF, adrenal adenoma, Hammond's esophagus, cavitating lung mass, diverticulosis, GERD with stricture, gastroparesis, who was recently admitted to [facility] for PNA and discharged back to [facility] yesterday, who returns to the ED BIBEMS for respiratory distress, cough, and hypoxia worsening despite antibiotics. Had a focal consolidation at admission and tx for PNA, patient was worked up and found to be hypotensive She was also reported to have low grade fever of 100.1F as per [place] records. At the ED, patient was found to be hypotensive, not responsive to IVF boluses. Central line was placed and levophed drip was started. - History Source History Provided By: Medical Record Limitations to Obtaining History: Poor Historian - Past Medical History Cardio/Vascular: Yes: CHF, HTN Pulmonary: Yes: COPD, O2 Dependent Gastrointestinal: Yes: Gastritis, GERD Hepatobiliary: Yes: Other (fatty liver) Musculoskeletal: Yes: Chronic low back pain Endocrine: Yes: Diabetes Mellitus - Past Surgical History Past Surgical History: Yes: Colonoscopy, Hysterectomy - Alcohol/Substance Use Hx Alcohol Use: No History of Substance Use: reports: None - Smoking History Smoking history: Smoker current status UNK Have you smoked in the past 12 months: No Aproximately how many cigarettes per day: 2 If you are a former smoker, when did you quit?: 10 days ago - Social History Usual Living Arrangement: Alone ADL: Independent 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 History of Recent Travel: No Home Medications - Allergies Allergies/Adverse Reactions: Allergies Allergy/AdvReac Type Severity Reaction Status Date / Time No Known Allergies Allergy Verified 06/10/19 12:39 - Home Medications Home Medications: Ambulatory Orders RX: Amlodipine Besylate [Norvasc -] 5 mg PO DAILY 03/22/14 RX: Losartan Potassium 100 mg PO DAILY 03/23/14 Acetaminophen W/ Codeine #3 [Tylenol # 3 -] 1 tab PO TID PRN 04/20/16 RX: Brimonidine Tartrate/Timolol [Combigan 0.2%-0.5% Eye Drops] 1 drop OU DAILY 04/20/16 RX: Latanoprost 0.005% Eye Drops [Xalatan 0.005% Eye Drops -] 1 drop OU HS 04/20/16 RX: Glipizide 5 mg PO DAILY 01/26/17 RX: Pilocarpine 2% [Pilostat 2% -] 1 drop OP BID 10/03/18 Ascorbic Acid [Vitamin C] 500 mg PO DAILY 05/22/19 Multivitamins [Tab-A-Vit -] 1 tab PO DAILY 05/22/19 RX: Dorzolamide HCl/Pf [Dorzolamide 2% Eye Drop] 1 drop OP BID 05/22/19 RX: Polyethylene Glycol 3350 [Miralax 119 gm Btl -] 17 gm PO DAILY 05/22/19 RX: Zinc Sulfate 220 mg PO DAILY 05/22/19 Sennosides [Senna] 2 tab PO PRN 05/22/19 Silver Sulfadiazine 1% Top Cr [Silvadene -] 1 applic TP DAILY 05/22/19 Docusate Sodium [Colace] 100 mg PO BID 06/03/19 RX: Pantoprazole Sodium 40 mg PO DAILY 06/03/19 RX: Albuterol 2.5/Ipratropium 0.5 [Duoneb -] 1 amp NEB BID PRN amp 06/08/19 RX: Alprazolam [Xanax] 0.5 mg PO Q8H PRN tablet 06/08/19 Aa/Hydrolyzed Collagen, Whey [Lps 15-30 Liquid] 30 ml PO BID 06/10/19 Insulin Detemir [Levemir Flextouch] 8 unit SQ HS 06/10/19 Insulin Lispro [Admelog Solostar] 0 unit SQ ASDIR 06/10/19 RX: predniSONE [Deltasone -] 10 mg PO DAILY 06/10/19 Review of Systems - Review of Systems Constitutional: reports: No Symptoms Eyes: reports: No Symptoms HENT: reports: No Symptoms Neck: reports: No Symptoms Cardiovascular: reports: No Symptoms Respiratory: reports: SOB, SOB on Exertion Gastrointestinal: reports: No Symptoms Genitourinary: reports: No Symptoms Neurological: reports: No Symptoms Endocrine: reports: No Symptoms Hematology/Lymphatic: reports: No Symptoms Psychiatric: reports: No Symptoms Physical Exam Vital Signs: Vital Signs Temperature 97.4 F L 06/11/19 10:00 Pulse Rate 100 H 06/11/19 11:20 Respiratory Rate 24 H 06/11/19 11:20 Blood Pressure 130/51 L 06/11/19 11:20 O2 Sat by Pulse Oximetry (%) 98 06/11/19 11:20 Constitutional: Yes: Calm, Mild Distress Cardiovascular: Yes: Regular Rate and Rhythm Respiratory: Yes: Regular, On Nasal O2, Poor Air Entry, Other Gastrointestinal: Yes: Normal Bowel Sounds, Soft Musculoskeletal: Yes: WNL Extremities: Yes: WNL Neurological: Yes: Alert, Other Labs: CBC, BMP 06/11/19 05:30 06/11/19 05:30 Imaging - Results Chest X-ray: Report Reviewed, Image Reviewed Assessment/Plan Septic Shock suspected PNA, r/o COVID HTN IDDM COPD on home O2 HFpEF Adrenal adenoma Hammond's esophagus Diverticulosis GERD with strictures Gastroparesis plan broad spectrum abx await for all results resp support nutrition await for all results rest as per the team cc 40 min
[2019-06-11] MEDS ORDERED: PIPERACILLIN/TAZOB 3.375 GM 3.375 GM in DEXTROSE 5%-WATER - 50 ML IVPB SCH (12:30)
--- NOTE | 2019-06-11 16:52 | PN ---
Teaching Attending Note Name of Resident: Tesha Bernard ATTENDING PHYSICIAN STATEMENT I saw and evaluated the patient. I reviewed the resident's note and discussed the case with the resident. I agree with the resident's findings and plan as documented. SUBJECTIVE: 83 F, HTN, IDDM, COPD on home O2, CHF, adrenal adenoma, Hammond's esophagus, cavitating lung mass, diverticulosis, GERD with stricture, and gastroparesis. Admitted via the ER from a SNF due to respiratory distress, cough and hypoxia. She was apparently discharged 1 day [employer]. Patient is not able to provide a history. She is mildly tachypneic on 50% VM. She is on 5mcq NE for hemodynamic support. Intake & Output 06/08/19 06/09/19 06/10/19 06/11/19 23:59 23:59 23:59 23:59 Intake Total 6194 Output Total 121 Balance 6073 Weight 103 lb Last Vital Signs Temp Pulse Resp BP Pulse Ox 97.2 F L 96 H 26 H 117/47 L 100 06/11/19 15:00 06/11/19 15:40 06/11/19 15:40 06/11/19 15:40 06/11/19 15:40 Active Medications Acetaminophen (Tylenol -) 650 mg PO Q6H PRN PRN Reason: Fever Brimonidine Tartrate (Alphagan 0.2% -) 1 drop OU BID [facility] Last Admin: 06/11/19 10:12 Dose: Not Given Documented by: Chlorhexidine Gluconate (Hibiclens For Decolonization -) 1 applic TP HS [facility] Docusate Sodium (Colace -) 100 mg PO BID [facility] Last Admin: 06/11/19 10:13 Dose: Not Given Documented by: Dorzolamide HCl (Trusopt 2%) 1 drop OU BID [facility] Enoxaparin Sodium (Lovenox -) 40 mg SQ DAILY [facility] Last Admin: 06/11/19 10:00 Dose: 40 mg Documented by: Azithromycin 250 mg/ Dextrose 250 mls @ 250 mls/hr IVPB DAILY [facility] Stop: 06/15/19 09:59 Last Admin: 06/11/19 11:20 Dose: 250 mls/hr Documented by: Norepinephrine Bitartrate 8, (000 mcg/ Dextrose) 500 mls @ 18.75 mls/hr IV TITR [facility]; Protocol Last Admin: 06/10/19 19:45 Dose: 5 mcg/min, 18.75 mls/hr Documented by: Sodium Chloride (Normal Saline -) 1,000 mls @ 42 mls/hr IV ASDIR [facility] Last Admin: 06/10/19 20:01 Dose: 42 mls/hr Documented by: Piperacillin Sod/Tazobactam (Sod 3.375 gm/ Dextrose) 50 mls @ 100 mls/hr IVPB Q8H-IV [facility]; Protocol Insulin Aspart (Novolog Vial Sliding Scale -) 1 vial SQ TIDAC [facility]; Protocol Last Admin: 06/11/19 11:20 Dose: 6 unit Documented by: Latanoprost (Xalatan 0.005% Eye Drops -) 1 drop OU HS [facility] Mupirocin (Bactroban Ointment (For Decolonization) -) 1 applic NS BID [facility] Stop: 06/15/19 21:59 Pilocarpine HCl (Pilostat 2% -) 1 drop OU BID [facility] Polyethylene Glycol (Miralax (For Daily Use) -) 17 gm PO DAILY [facility] Last Admin: 06/11/19 09:51 Dose: 17 gm Documented by: Senna (Senna -) 2 tab PO DAILY PRN PRN Reason: CONSTIPATION Timolol Maleate (Timoptic 0.5%) 1 drop OU BID [facility] Last Admin: 06/11/19 10:13 Dose: Not Given Documented by: GENERAL: Lethargic and mildly tachypneic on VM O2 EYES: (-) Icterus EARS, NOSE, THROAT: Dry mucous membranes. NECK: Normal range of motion, supple LUNGS: Coarse breath sounds bilaterally HEART: Regular rate and rhythm, normal S1 and S2 ABDOMEN: Soft, nontender, not distended, normoactive bowel sounds LOWER EXTREMITIES: 2+ pulses, warm, well-perfused. No peripheral edema. NEUROLOGICAL: Lethargic, non-focal SKIN: Warm, dry, normal turgor. Laboratory Results - last 24 hr 06/10/19 06/10/19 06/10/19 12:33 12:33 12:33 WBC 9.4 RBC 3.67 Hgb 11.1 Hct 34.5 MCV 94.0 MCH 30.3 MCHC 32.2 RDW 15.2 Plt Count 135 D MPV 11.3 H D Absolute Neuts (auto) 7.6 Neutrophils % 80.9 Neutrophils % (Manual) 80.0 Band Neutrophils % 6.1 Lymphocytes % 13.2 D Lymphocytes % (Manual) 4.1 L D Monocytes % 5.7 D Monocytes % (Manual) 6 Eosinophils % 0.1 Eosinophils % (Manual) 0.0 D Basophils % 0.1 Basophils % (Manual) 0.0 Myelocytes % (Man) 0 Promyelocytes % (Man) 0 Blast Cells % (Manual) 0 Nucleated RBC % 0 Metamyelocytes 1 D Hypochromia 0 Platelet Estimate Decreased Polychromasia 0 Poikilocytosis 0 Anisocytosis 0 Microcytosis 0 Macrocytosis 0 PT with INR 9.50 L INR 0.81 L PTT (Actin FS) 36.9 H VBG pH POC VBG pCO2 POC VBG pO2 VBG HCO3 VBG O2 Sat (Pamella) VBG Base Excess Sodium Potassium Chloride Carbon Dioxide Anion Gap BUN Creatinine Est GFR (CKD-EPI)AfAm Est GFR (CKD-EPI)NonAf POC Glucometer Random Glucose Lactic Acid Calcium Total Bilirubin AST ALT Alkaline Phosphatase Creatine Kinase CK-MB (CK-2) Troponin I < 0.02 Total Protein Albumin Urine Color Urine Appearance Urine pH Ur Specific [place] Urine Protein Urine Glucose (UA) Urine Ketones Urine Blood Urine Nitrite Urine Bilirubin Urine Urobilinogen Ur Leukocyte Esterase Influenza A (Rapid) Influenza B (Rapid) 06/10/19 06/10/19 06/10/19 12:33 12:33 12:33 WBC RBC Hgb Hct MCV MCH MCHC RDW Plt Count MPV Absolute Neuts (auto) Neutrophils % Neutrophils % (Manual) Band Neutrophils % Lymphocytes % Lymphocytes % (Manual) Monocytes % Monocytes % (Manual) Eosinophils % Eosinophils % (Manual) Basophils % Basophils % (Manual) Myelocytes % (Man) Promyelocytes % (Man) Blast Cells % (Manual) Nucleated RBC % Metamyelocytes Hypochromia Platelet Estimate Polychromasia Poikilocytosis Anisocytosis Microcytosis Macrocytosis PT with INR INR PTT (Actin FS) VBG pH Cancelled POC VBG pCO2 Cancelled POC VBG pO2 Cancelled VBG HCO3 Cancelled VBG O2 Sat (Pamella) Cancelled VBG Base Excess Cancelled Sodium 143 Potassium 3.5 Chloride 103 Carbon Dioxide 32 Anion Gap 9 BUN 39.8 H Creatinine 1.0 Est GFR (CKD-EPI)AfAm 59.91 Est GFR (CKD-EPI)NonAf 51.69 POC Glucometer Random Glucose 122 H Lactic Acid 1.6 Calcium 8.1 L Total Bilirubin 0.4 AST 36 ALT 23 Alkaline Phosphatase 112 Creatine Kinase 90 CK-MB (CK-2) 1.7 Troponin I Total Protein 5.0 L Albumin 1.4 L Urine Color Urine Appearance Urine pH Ur Specific [place] Urine Protein Urine Glucose (UA) Urine Ketones Urine Blood Urine Nitrite Urine Bilirubin Urine Urobilinogen Ur Leukocyte Esterase Influenza A (Rapid) Influenza B (Rapid) 06/10/19 06/10/19 06/10/19 13:00 13:20 17:09 WBC RBC Hgb Hct MCV MCH MCHC RDW Plt Count MPV Absolute Neuts (auto) Neutrophils % Neutrophils % (Manual) Band Neutrophils % Lymphocytes % Lymphocytes % (Manual) Monocytes % Monocytes % (Manual) Eosinophils % Eosinophils % (Manual) Basophils % Basophils % (Manual) Myelocytes % (Man) Promyelocytes % (Man) Blast Cells % (Manual) Nucleated RBC % Metamyelocytes Hypochromia Platelet Estimate Polychromasia Poikilocytosis Anisocytosis Microcytosis Macrocytosis PT with INR INR PTT (Actin FS) VBG pH POC VBG pCO2 POC VBG pO2 VBG HCO3 VBG O2 Sat (Pamella) VBG Base Excess Sodium Potassium Chloride Carbon Dioxide Anion Gap BUN Creatinine Est GFR (CKD-EPI)AfAm Est GFR (CKD-EPI)NonAf POC Glucometer 243 Random Glucose Lactic Acid Calcium Total Bilirubin AST ALT Alkaline Phosphatase Creatine Kinase CK-MB (CK-2) Troponin I Total Protein Albumin Urine Color Dk yellow Urine Appearance Cloudy Urine pH 5.0 Ur Specific [place] 1.019 Urine Protein Trace Urine Glucose (UA) Negative Urine Ketones Trace H Urine Blood Negative Urine Nitrite Negative Urine Bilirubin Negative Urine Urobilinogen 0.2 Ur Leukocyte Esterase Negative Influenza A (Rapid) Negative Influenza B (Rapid) Negative Active Medications Generic Name Dose Route Start Last Admin Trade Name Freq PRN Reason Stop Dose Admin Acetaminophen 650 mg 06/10/19 16:07 Tylenol - PO Q6H PRN Fever Enoxaparin Sodium 40 mg 06/10/19 16:15 06/10/19 17:03 Lovenox - SQ 40 mg DAILY [facility] Administration Azithromycin 250 mg/ Dextrose 250 mls @ 250 mls/hr 06/11/19 10:00 IVPB 06/15/19 09:59 DAILY [facility] Piperacillin Sod/Tazobactam 50 mls @ 100 mls/hr 06/10/19 18:00 Sod 3.375 gm/ Dextrose IVPB Q8H-IV [facility] Protocol Piperacillin Sod/Tazobactam 50 mls @ 100 mls/hr 06/10/19 18:00 Sod 3.375 gm/ Dextrose IVPB 06/11/19 17:59 Q8H-IV [facility] Protocol Potassium Chloride/Dextrose/Sod Cl 10 meq in 1,000 mls @ 75 mls/hr 06/10/19 17:00 D5-1/2ns+10 Meq Kcl - IV ASDIR [facility] Insulin Aspart 1 vial 06/10/19 16:45 06/10/19 17:24 Novolog Vial Sliding Scale - SQ Not Given TIDAC [facility] Protocol ASSESSMENT/PLAN: Septic Shock due to suspected PNA HTN IDDM COPD on home O2 CHF Adrenal adenoma Hammond's esophagus 10 mm MONICA cavitary lesion Diverticulosis GERD with stricture Gastroparesis IVF resuscitation Jim-culture Strict I & O ABX per ID NE for hemodynamic support VTE prophylaxis Will need ICU monitoring for pressors Dr Maloney Critical care time spent in reviewing chart, evaluating patient and formulating plan - 36 minutes.
[2019-06-11] MEDS ORDERED: INSULIN (NOVOLOG) ASPART 100 UNITS/ML 10ML VIAL ONE (17:39)
[2019-06-11] MEDS: NOREPINEPHRINE BITARTRATE 8,000 MCG in DEXTROSE 5%-WATER - 492 ML IV SCH (18:03)
[2019-06-11] MEDS: SODIUM CHLORIDE 1,000 ML IV SCH (20:00)
[2019-06-11] MEDS ORDERED: ALPRAZolam 0.25 MG TABLET PO PRN (20:51)
[2019-06-11] MEDS: CHLORHEXIDINE GLUCONATE 4% CLEANSER FOR DECOLONIZATION TP SCH (22:00)
[2019-06-11] MEDS: PILOCARPINE 2% OPHTHALMIC SOLUTION 15 ML BOTTLE OU SCH (22:00)
[2019-06-11] MEDS: MUPIROCIN 2% TOPICAL OINTMENT FOR DECOLONIZATION NS SCH (22:00)
[2019-06-11] MEDS: DORZOLAMIDE 2% HCL OPHTHALMIC SOLUTION 10 ML BOTTLE OU SCH (22:00)
[2019-06-11] MEDS: LATANOPROST 0.005% OPHTH SOLN 2.5ML BOTTLE OU SCH (22:00)
[2019-06-12] MEDS: PIPERACILLIN/TAZOB 3.375 GM 3.375 GM in DEXTROSE 5%-WATER - 50 ML IVPB SCH ×4 (01:42→18:59)
[2019-06-12] MEDS ORDERED: ALPRAZolam 1 MG TABLET PO PRN (03:49)
[2019-06-12] MEDS ORDERED: ALPRAZolam 0.25 MG TABLET PO PRN (04:09)
[2019-06-12] MEDS: INSULIN SLIDING SCALE (NOVOLOG) 1 VIAL SQ SCH ×4 (06:21→21:42)
[2019-06-12] MEDS ORDERED: LACTATED RINGERS SOLUTION 1000 ML INFUS.BAG IV ONE (08:27)
--- NOTE | 2019-06-12 08:27 | PN ---
Progress Note (short form) - Note Progress Note: Pulm/CCM SUBJECTIVE: 83 F, HTN, IDDM, COPD on home O2, CHF, adrenal adenoma, Hammond's esophagus, cavitating lung mass, diverticulosis, GERD with stricture, and gastroparesis p/w respiratory distress, cough and hypoxia requiring supplemental o2 and NE for BP support. 24HR Vital Signs Temp 98.0 F 06/11/19 20:00 Pulse 99 H 06/12/19 06:00 Resp 22 H 06/12/19 06:00 BP 118/48 L 06/12/19 06:00 Pulse Ox 100 06/11/19 21:00 Intake & Output 06/11/19 06/11/19 06/12/19 11:59 23:59 11:59 Intake Total 734 Output Total 350 Balance 384 Weight 46.72 kg Intake: IV 684 Levophed - 8,000 Mcg In 180 D5w - 492 ml @ 5 MCG/MIN 18.75 mls/hr IV TITR [facility] Rx#:[id number] Normal Saline - 1,000 ml 504 @ 42 mls/hr IV ASDIR [facility] Rx#:[id number] IVPB 50 Output: Urine 350 Norton 350 Other: Voiding Method Indwelling Catheter Indwelling Catheter Height 5 ft 2 in Body Mass Index (BMI) 18.8 GENERAL: Lethargic and mildly tachypneic on VM O2 EYES: (-) Icterus EARS, NOSE, THROAT: Dry mucous membranes. NECK: Normal range of motion, supple LUNGS: Coarse breath sounds bilaterally HEART: Regular rate and rhythm, normal S1 and S2 ABDOMEN: Soft, nontender, not distended, normoactive bowel sounds LOWER EXTREMITIES: 2+ pulses, warm, well-perfused. No peripheral edema. NEUROLOGICAL: Lethargic, non-focal SKIN: Warm, dry, normal turgor. CBC, BMP Lab holiday today 06/11/19 05:30 06/11/19 05:30 Medications Acetaminophen (Tylenol -) 650 mg PO Q6H PRN PRN Reason: Fever Last Admin: 06/11/19 20:40 Dose: 650 mg Documented by: Brimonidine Tartrate (Alphagan 0.2% -) 1 drop OU BID [facility] Last Admin: 06/11/19 22:00 Dose: 1 drop Documented by: Chlorhexidine Gluconate (Hibiclens For Decolonization -) 1 applic TP HS [facility] Last Admin: 06/11/19 22:00 Dose: 1 applic Documented by: Docusate Sodium (Colace -) 100 mg PO BID [facility] Last Admin: 06/11/19 22:00 Dose: Not Given Documented by: Dorzolamide HCl (Trusopt 2%) 1 drop OU BID [facility] Last Admin: 06/11/19 22:00 Dose: 1 drop Documented by: Enoxaparin Sodium (Lovenox -) 40 mg SQ DAILY [facility] Last Admin: 06/11/19 10:00 Dose: 40 mg Documented by: Azithromycin 250 mg/ Dextrose 250 mls @ 250 mls/hr IVPB DAILY [facility] Stop: 06/15/19 09:59 Last Admin: 06/11/19 11:20 Dose: 250 mls/hr Documented by: Norepinephrine Bitartrate 8, (000 mcg/ Dextrose) 500 mls @ 18.75 mls/hr IV TITR [facility]; Protocol Last Admin: 06/11/19 18:03 Dose: 4 mcg/min, 15 mls/hr Documented by: Sodium Chloride (Normal Saline -) 1,000 mls @ 42 mls/hr IV ASDIR [facility] Last Admin: 06/11/19 20:00 Dose: 42 mls/hr Documented by: Piperacillin Sod/Tazobactam (Sod 3.375 gm/ Dextrose) 50 mls @ 100 mls/hr IVPB Q8H-IV [facility]; Protocol Last Admin: 06/12/19 01:42 Dose: 100 mls/hr Documented by: Insulin Aspart (Novolog Vial Sliding Scale -) 1 vial SQ ACHS [facility]; Protocol Last Admin: 06/12/19 06:21 Dose: Not Given Documented by: Latanoprost (Xalatan 0.005% Eye Drops -) 1 drop OU HS [facility] Last Admin: 06/11/19 22:00 Dose: 1 drop Documented by: Mupirocin (Bactroban Ointment (For Decolonization) -) 1 applic NS BID [facility] Stop: 06/16/19 21:59 Last Admin: 06/11/19 22:00 Dose: 1 drop Documented by: Pilocarpine HCl (Pilostat 2% -) 1 drop OU BID [facility] Last Admin: 06/11/19 22:00 Dose: 1 drop Documented by: Polyethylene Glycol (Miralax (For Daily Use) -) 17 gm PO DAILY [facility] Last Admin: 06/11/19 09:51 Dose: 17 gm Documented by: Judi (Rashina -) 2 tab PO DAILY PRN PRN Reason: CONSTIPATION Timolol Maleate (Timoptic 0.5%) 1 drop OU BID [facility] Last Admin: 06/11/19 22:00 Dose: 1 drop Documented by: ASSESSMENT/PLAN: Septic Shock due to suspected PNA HTN IDDM COPD on home O2 CHF Adrenal adenoma Hammond's esophagus 10 mm MONICA cavitary lesion Diverticulosis GERD with stricture Gastroparesis IVF resuscitation Jim-culture , f/u cxl data Strict I & O ABX per ID NE for hemodynamic support , wean as tolerated Opiods for dyspnea VTE prophylaxis Cont ICU monitoring for pressors DNR/DNI Sha
--- NOTE | 2019-06-12 09:41 | PN ---
Physical Exam: Subjective: Patient seen and examined at bedside, lethargic, in mild respiratory distress, DNR/DNI. Objective: GENERAL: Tired appearing, lethargic, on VM O2 EYES: EOMI, no scleral icterus EARS, NOSE, THROAT: Dry MM NECK: full ROM, supple LUNGS: B/L coarse BS HEART: S1, S2+, RRR ABDOMEN: Soft, nontender, not distended, normoactive bowel sounds LOWER EXTREMITIES: 2+ pulses, warm, well-perfused. No peripheral edema. NEUROLOGICAL: Lethargic, non-focal SKIN: Warm, dry, normal turgor. Vital Signs - 24 hr 06/11/19 06/11/19 06/11/19 10:00 10:20 10:40 Temperature 97.4 F L Pulse Rate Pulse Rate [ 98 H 94 H 94 H Radial] Respiratory 20 21 H 20 Rate Blood Pressure Blood Pressure 107/47 L 115/44 L 121/44 L [Left Arm] O2 Sat by Pulse 96 99 97 Oximetry (%) 06/11/19 06/11/19 06/11/19 11:00 11:20 11:40 Temperature Pulse Rate Pulse Rate [ 95 H 100 H 97 H Radial] Respiratory 24 H 23 H Rate Blood Pressure Blood Pressure 113/41 L 130/51 L 123/45 L [Left Arm] O2 Sat by Pulse 98 93 L Oximetry (%) 06/11/19 06/11/19 06/11/19 12:00 12:20 12:40 Temperature Pulse Rate Pulse Rate [ 94 H 94 H 92 H Radial] Respiratory 23 H Rate Blood Pressure Blood Pressure 116/47 L 117/42 L 127/43 L [Left Arm] O2 Sat by Pulse 96 Oximetry (%) 06/11/19 06/11/19 06/11/19 13:00 13:20 14:00 Temperature Pulse Rate Pulse Rate [ 98 H 99 H 86 Radial] Respiratory 20 29 H 24 H Rate Blood Pressure Blood Pressure 125/46 L 129/48 L 112/42 L [Left Arm] O2 Sat by Pulse 97 100 100 Oximetry (%) 06/11/19 06/11/19 06/11/19 14:20 14:40 15:00 Temperature 97.2 F L Pulse Rate Pulse Rate [ 90 93 H 87 Radial] Respiratory 23 H 24 H 23 H Rate Blood Pressure Blood Pressure 124/48 L 127/51 L 118/48 L [Left Arm] O2 Sat by Pulse 100 93 L Oximetry (%) 06/11/19 06/11/19 06/11/19 15:20 15:40 16:53 Temperature 100.0 F H Pulse Rate 94 H Pulse Rate [ 92 H 96 H Radial] Respiratory 21 H 26 H 24 H Rate Blood Pressure 102/54 L Blood Pressure 113/47 L 117/47 L [Left Arm] O2 Sat by Pulse 100 100 Oximetry (%) 06/11/19 06/11/19 06/11/19 18:03 20:00 21:00 Temperature 98.0 F Pulse Rate 96 H 97 H Pulse Rate [ Radial] Respiratory 25 H Rate Blood Pressure 104/62 105/48 L Blood Pressure [Left Arm] O2 Sat by Pulse 100 Oximetry (%) 06/11/19 06/12/19 06/12/19 22:00 00:00 02:00 Temperature Pulse Rate 93 H 100 H 98 H Pulse Rate [ Radial] Respiratory 23 H 20 22 H Rate Blood Pressure 137/40 L 116/43 L 122/41 L Blood Pressure [Left Arm] O2 Sat by Pulse Oximetry (%) 06/12/19 06/12/19 04:00 06:00 Temperature Pulse Rate 100 H 99 H Pulse Rate [ Radial] Respiratory 25 H 22 H Rate Blood Pressure 132/38 L 118/48 L Blood Pressure [Left Arm] O2 Sat by Pulse Oximetry (%) Microbiology 06/10/19 20:00 Urine For Antigen Detection Streptococcus pneumoniae Antigen (M - Final 06/10/19 12:33 Blood - Peripheral Venous Blood Culture - Preliminary NO GROWTH OBTAINED AFTER 24 HOURS, INCUBATION TO CONTINUE FOR 4 DAYS. 06/10/19 12:33 Blood - Peripheral Venous Blood Culture - Preliminary NO GROWTH OBTAINED AFTER 24 HOURS, INCUBATION TO CONTINUE FOR 4 DAYS. 06/10/19 13:20 Urine - Urine - Catheterized Urine Culture - Final NO GROWTH OBTAINED Laboratory Results - last 24 hr 06/10/19 06/11/19 06/11/19 13:00 05:30 11:14 Neutrophils % (Manual) 89.0 H Band Neutrophils % 0.0 Lymphocytes % (Manual) 5.0 L D Monocytes % (Manual) 4 Eosinophils % (Manual) 0.0 Basophils % (Manual) 0.0 Myelocytes % (Man) 1 D Promyelocytes % (Man) 0 Blast Cells % (Manual) 0 Nucleated RBC % 0 Metamyelocytes 1 Hypochromia 0 Platelet Estimate Normal Polychromasia 1+ Poikilocytosis 0 Anisocytosis 1+ Microcytosis 0 Macrocytosis 1+ POC Glucometer 353 COVID-19 ([facility]) Cancelled 06/11/19 06/11/19 06/12/19 17:10 22:58 05:53 Neutrophils % (Manual) Band Neutrophils % Lymphocytes % (Manual) Monocytes % (Manual) Eosinophils % (Manual) Basophils % (Manual) Myelocytes % (Man) Promyelocytes % (Man) Blast Cells % (Manual) Nucleated RBC % Metamyelocytes Hypochromia Platelet Estimate Polychromasia Poikilocytosis Anisocytosis Microcytosis Macrocytosis POC Glucometer 475 363 132 COVID-19 ([facility]) Home Medications Medication Instructions Recorded Amlodipine Besylate [Norvasc -] 5 mg PO DAILY 03/22/14 Losartan Potassium 100 mg PO DAILY 03/23/14 Acetaminophen W/ Codeine #3 1 tab PO TID PRN 04/20/16 [Tylenol # 3 -] Brimonidine Tartrate/Timolol 1 drop OU DAILY 04/20/16 [Combigan 0.2%-0.5% Eye Drops] Latanoprost 0.005% Eye Drops 1 drop OU HS 04/20/16 [Xalatan 0.005% Eye Drops -] Glipizide 5 mg PO DAILY 01/26/17 Pilocarpine 2% [Pilostat 2% -] 1 drop OP BID 10/03/18 Ascorbic Acid [Vitamin C] 500 mg PO DAILY 05/22/19 Dorzolamide HCl/Pf [Dorzolamide 2% 1 drop OP BID 05/22/19 Eye Drop] Multivitamins [Tab-A-Vit -] 1 tab PO DAILY 05/22/19 Polyethylene Glycol 3350 [Miralax 17 gm PO DAILY 05/22/19 119 gm Btl -] Sennosides [Senna] 2 tab PO PRN 05/22/19 Silver Sulfadiazine 1% Top Cr 1 applic TP DAILY 05/22/19 [Silvadene -] Zinc Sulfate 220 mg PO DAILY 05/22/19 Docusate Sodium [Colace] 100 mg PO BID 06/03/19 Pantoprazole Sodium 40 mg PO DAILY 06/03/19 Albuterol 2.5/Ipratropium 0.5 1 amp NEB BID PRN amp 06/08/19 [Duoneb -] Alprazolam [Xanax] 0.5 mg PO Q8H PRN tablet 06/08/19 Aa/Hydrolyzed Collagen, Whey [Lps 30 ml PO BID 06/10/19 15-30 Liquid] Insulin Detemir [Levemir Flextouch] 8 unit SQ HS 06/10/19 Insulin Lispro [Admelog Solostar] 0 unit SQ ASDIR 06/10/19 predniSONE [Deltasone -] 10 mg PO DAILY 06/10/19 Current Medications Generic Name Dose Route Start Last Admin Trade Name Freq PRN Reason Stop Dose Admin Acetaminophen 650 mg 06/10/19 16:07 06/11/19 20:40 Tylenol - PO 650 mg Q6H PRN Administration Fever Brimonidine Tartrate 1 drop 06/11/19 10:00 06/11/19 22:00 Alphagan 0.2% - OU 1 drop BID [facility] Administration Chlorhexidine Gluconate 1 applic 06/11/19 22:00 06/11/19 22:00 Hibiclens For Decolonization - TP 1 applic HS [facility] Administration Docusate Sodium 100 mg 06/11/19 10:00 06/11/19 22:00 Colace - PO Not Given BID [facility] Dorzolamide HCl 1 drop 06/11/19 22:00 06/11/19 22:00 Trusopt 2% OU 1 drop BID [facility] Administration Enoxaparin Sodium 40 mg 06/10/19 16:15 06/11/19 10:00 Lovenox - SQ 40 mg DAILY [facility] Administration Azithromycin 250 mg/ Dextrose 250 mls @ 250 mls/hr 06/11/19 10:00 06/11/19 11:20 IVPB 06/15/19 09:59 250 mls/hr DAILY [facility] Administration Norepinephrine Bitartrate 8, 500 mls @ 18.75 mls/hr 06/10/19 18:45 06/11/19 18:03 000 mcg/ Dextrose IV 4 mcg/min TITR [facility] 15 mls/hr Administration Protocol 5 MCG/MIN Sodium Chloride 1,000 mls @ 42 mls/hr 06/10/19 18:45 06/11/19 20:00 Normal Saline - IV 42 mls/hr ASDIR [facility] Administration Piperacillin Sod/Tazobactam 50 mls @ 100 mls/hr 06/11/19 18:00 06/12/19 01:42 Sod 3.375 gm/ Dextrose IVPB 100 mls/hr Q8H-IV [facility] Administration Protocol Insulin Aspart 1 vial 06/12/19 07:00 06/12/19 06:21 Novolog Vial Sliding Scale - SQ Not Given ACHS [facility] Protocol Latanoprost 1 drop 06/11/19 22:00 06/11/19 22:00 Xalatan 0.005% Eye Drops - OU 1 drop HS [facility] Administration Mupirocin 1 applic 06/11/19 22:00 06/11/19 22:00 Bactroban Ointment (For Decolonization) - NS 06/16/19 21:59 1 drop BID [facility] Administration Pilocarpine HCl 1 drop 06/11/19 22:00 06/11/19 22:00 Pilostat 2% - OU 1 drop BID [facility] Administration Polyethylene Glycol 17 gm 06/11/19 10:00 06/11/19 09:51 Miralax (For Daily Use) - PO 17 gm DAILY [facility] Administration Senna 2 tab 06/11/19 10:00 Senna - PO DAILY PRN CONSTIPATION Timolol Maleate 1 drop 06/11/19 10:00 06/11/19 22:00 Timoptic 0.5% OU 1 drop BID [facility] Administration A/P: Septic Shock due to suspected PNA, r/o COVID HTN IDDM COPD on home O2 HFpEF Adrenal adenoma Hammond's esophagus 10 mm MONICA cavitary lesion Diverticulosis GERD with strictures Gastroparesis Plan: Cont. IV Azithromycin/Zosyn Cont. pressors to titrate map >65mmHg Bowel regimen Supportive oxygen therapy to titrate O2 >90% DNR/DNI Cont. further management per ICU team Poor prognosis Visit type - Emergency Visit Emergency Visit: Yes ED Registration Date: 06/10/19 Care time: The patient presented to the Emergency Department on the above date and was hospitalized for further evaluation of their emergent condition. - New Patient This patient is new to me today: Yes Date on this admission: 06/12/19 - Critical Care Critical Care patient: Yes Total Critical Care Time (in minutes): 35 Critical Care Statement: The care of this patient involved high complexity decision making to prevent further life threatening deterioration of the p atient's condition and/or to evaluate & treat vital organ system(s) failure or risk of failure. - Discharge Referral Referred to [facility] Med P.C.: No
[2019-06-12] MEDS: AZITHROMYCIN IVPB 250 MG in DEXTROSE 5%-WATER - 250 ML IVPB SCH (09:50)
[2019-06-12] MEDS ORDERED: morphine SULFATE/PF 0.5 MG/ML (2cc Syringe - QUVA) ONE (10:40)
[2019-06-12] MEDS: ENOXAPARIN NA (PORCINE) 40 MG/0.4 ML DISP.SYRIN SQ SCH (10:45)
[2019-06-12] MEDS: DOCUSATE SODIUM 100 MG CAPSULE (FP) PO SCH ×2 (10:46→21:35)
[2019-06-12] MEDS: BRIMONIDINE TARTRATE 0.2% OPHTHALMIC 5 ML BOTTLE OU SCH ×2 (10:58→21:32)
[2019-06-12] MEDS: MORPHINE SULFATE 2 MG/ML VIAL IVPUSH PRN (10:59)
[2019-06-12] MEDS: TIMOLOL 0.5% OPHTHALMIC SOL 5 ML BOTTLE OU SCH ×2 (10:59→21:37)
[2019-06-12] MEDS: PILOCARPINE 2% OPHTHALMIC SOLUTION 15 ML BOTTLE OU SCH ×2 (10:59→21:44)
[2019-06-12] MEDS: DORZOLAMIDE 2% HCL OPHTHALMIC SOLUTION 10 ML BOTTLE OU SCH ×2 (10:59→21:32)
[2019-06-12] MEDS ORDERED: INSULIN (NOVOLOG) ASPART 100 UNITS/ML 10ML VIAL ONE ×3 (11:03→21:17)
[2019-06-12] MEDS ORDERED: morphine SULFATE 4 MG/ML VIAL IVPUSH PRN (12:54)
[2019-06-12] MEDS ORDERED: LORazepam 2 MG/ML SDV VIAL IVPUSH PRN (12:55)
[2019-06-12] MEDS ORDERED: MORPHINE SULFATE 2 MG/ML VIAL IVPUSH PRN (13:14)
--- NOTE | 2019-06-12 13:19 | PN ---
Progress Note, Physician History of Present Illness: more awake and alert still on low dose pressors - Current Medication List Current Medications: Active Medications Acetaminophen (Tylenol -) 650 mg PO Q6H PRN PRN Reason: Fever Last Admin: 06/11/19 20:40 Dose: 650 mg Documented by: Brimonidine Tartrate (Alphagan 0.2% -) 1 drop OU BID [facility] Last Admin: 06/12/19 10:58 Dose: 1 drop Documented by: Chlorhexidine Gluconate (Hibiclens For Decolonization -) 1 applic TP HS [facility] Last Admin: 06/11/19 22:00 Dose: 1 applic Documented by: Docusate Sodium (Colace -) 100 mg PO BID [facility] Last Admin: 06/12/19 10:46 Dose: 100 mg Documented by: Dorzolamide HCl (Trusopt 2%) 1 drop OU BID [facility] Last Admin: 06/12/19 10:59 Dose: 1 drop Documented by: Enoxaparin Sodium (Lovenox -) 40 mg SQ DAILY [facility] Last Admin: 06/12/19 10:45 Dose: 40 mg Documented by: Azithromycin 250 mg/ Dextrose 250 mls @ 250 mls/hr IVPB DAILY [facility] Stop: 06/15/19 09:59 Last Admin: 06/12/19 09:50 Dose: 250 mls/hr Documented by: Norepinephrine Bitartrate 8, (000 mcg/ Dextrose) 500 mls @ 18.75 mls/hr IV TITR [facility]; Protocol Last Admin: 06/11/19 18:03 Dose: 4 mcg/min, 15 mls/hr Documented by: Sodium Chloride (Normal Saline -) 1,000 mls @ 42 mls/hr IV ASDIR [facility] Last Admin: 06/11/19 20:00 Dose: 42 mls/hr Documented by: Piperacillin Sod/Tazobactam (Sod 3.375 gm/ Dextrose) 50 mls @ 100 mls/hr IVPB Q8H-IV [facility]; Protocol Last Admin: 06/12/19 12:00 Dose: 100 mls/hr Documented by: Insulin Aspart (Novolog Vial Sliding Scale -) 1 vial SQ ACHS [facility]; Protocol Last Admin: 06/12/19 10:58 Dose: 2 units Documented by: Latanoprost (Xalatan 0.005% Eye Drops -) 1 drop OU HS [facility] Last Admin: 06/11/19 22:00 Dose: 1 drop Documented by: Lorazepam (Ativan Injection -) 0.5 mg IVPUSH Q3H PRN PRN Reason: ANXIETY Morphine Sulfate (Morphine Sulfate) 2 mg IVPUSH Q3H PRN PRN Reason: PAIN LEVEL 1-5 Last Admin: 06/12/19 10:59 Dose: 2 mg Documented by: Morphine Sulfate (Morphine Sulfate) 4 mg IVPUSH Q3H PRN PRN Reason: PAIN LEVEL 6-10 Mupirocin (Bactroban Ointment (For Decolonization) -) 1 applic NS BID [facility] Stop: 06/16/19 21:59 Last Admin: 06/11/19 22:00 Dose: 1 drop Documented by: Pilocarpine HCl (Pilostat 2% -) 1 drop OU BID [facility] Last Admin: 06/12/19 10:59 Dose: 1 drop Documented by: Polyethylene Glycol (Miralax (For Daily Use) -) 17 gm PO DAILY [facility] Last Admin: 06/11/19 09:51 Dose: 17 gm Documented by: Senna (Senna -) 2 tab PO DAILY PRN PRN Reason: CONSTIPATION Timolol Maleate (Timoptic 0.5%) 1 drop OU BID [facility] Last Admin: 06/12/19 10:59 Dose: 1 drop Documented by: - Objective Vital Signs: Vital Signs Temperature 98.0 F 06/11/19 20:00 Pulse Rate 99 H 06/12/19 06:00 Respiratory Rate 22 H 06/12/19 06:00 Blood Pressure 118/48 L 06/12/19 06:00 O2 Sat by Pulse Oximetry (%) 100 06/11/19 21:00 Constitutional: Yes: Calm, Mild Distress Cardiovascular: Yes: S1, S2, Other (on pressors) Respiratory: Yes: Regular, On Nasal O2, Poor Air Entry Gastrointestinal: Yes: Normal Bowel Sounds, Soft Musculoskeletal: Yes: WNL Extremities: Yes: WNL Neurological: Yes: Alert Psychiatric: Yes: Alert Labs: CBC, BMP 06/11/19 05:30 06/11/19 05:30 INR, PTT INR 0.81 (0.83-1.09) L 06/10/19 12:33 Assessment/Plan Septic Shock suspected PNA, r/o COVID HTN IDDM COPD on home O2 HFpEF Adrenal adenoma Hammond's esophagus Diverticulosis GERD with strictures Gastroparesis plan continue abx resp support nutrition await for all results rest as per the team cc 40 min
[2019-06-12] MEDS: POLYETHYLENE GLYCOL 3350 119 GM BTL PO SCH (14:01)
[2019-06-12] MEDS ORDERED: ALBUTEROL SO4 0.083% IH SOL 2.5 MG/3 ML VIAL.NEB. NEB ONE (17:52)
[2019-06-12] MEDS: MUPIROCIN 2% TOPICAL OINTMENT FOR DECOLONIZATION NS SCH ×2 (18:59→21:33)
--- NOTE | 2019-06-12 19:03 | PN ---
Physical Exam: Subjective: Patient seen and examined at bedside, lethargic, in mild respiratory distress, on VM, DNR/DNI. Objective: GENERAL: Lethargic, on VM O2, tired appearing EYES: EOMI, no scleral icterus EARS, NOSE, THROAT: Dry MM NECK: full ROM, supple LUNGS: B/L coarse BS, increased WOB HEART: S1, S2+, RRR ABDOMEN: Soft, nontender, not distended, normoactive bowel sounds LOWER EXTREMITIES: 2+ pulses, warm, well-perfused. No peripheral edema. NEUROLOGICAL: Lethargic, non-focal SKIN: Warm, dry, normal turgor. A/P: Septic Shock due to suspected PNA, r/o COVID HTN IDDM COPD on home O2 HFpEF Adrenal adenoma Hammond's esophagus 10 mm MONICA cavitary lesion Diverticulosis GERD with strictures Gastroparesis Plan: Cont. IV Azithromycin/Zosyn Cont. pressors to titrate map >65mmHg Bowel regimen Supportive oxygen therapy/VM/NC to titrate O2 >90%, avoid intubation (due to DNI) and NIPPV Cont. further management per ICU team Poor prognosis DNR/DNI Visit type - Emergency Visit Emergency Visit: Yes ED Registration Date: 06/10/19 Care time: The patient presented to the Emergency Department on the above date and was hospitalized for further evaluation of their emergent condition. - New Patient This patient is new to me today: Yes Date on this admission: 06/12/19 - Critical Care Critical Care patient: Yes Total Critical Care Time (in minutes): 35 Critical Care Statement: The care of this patient involved high complexity decision making to prevent further life threatening deterioration of the patient's condition and/or to evaluate & treat vital organ system(s) failure or risk of failure. - Discharge Referral Referred to [facility] Med P.C.: No
[2019-06-12] MEDS: SODIUM CHLORIDE 1,000 ML IV SCH (21:11)
[2019-06-12] MEDS: CHLORHEXIDINE GLUCONATE 4% CLEANSER FOR DECOLONIZATION TP SCH (21:33)
[2019-06-12] MEDS: LATANOPROST 0.005% OPHTH SOLN 2.5ML BOTTLE OU SCH (21:36)
[2019-06-13] MEDS ORDERED: PIPERACILLIN/TAZOBACTAM 3.375 GM VIAL IVPB ONE ×3 (02:07→16:55)
[2019-06-13] MEDS ORDERED: DEXTROSE 5%-WATER - 50 ML IVPB ONE ×3 (02:08→16:55)
[2019-06-13] MEDS: MORPHINE SULFATE 2 MG/ML VIAL IVPUSH PRN ×2 (02:20→10:39)
[2019-06-13] MEDS: PIPERACILLIN/TAZOB 3.375 GM 3.375 GM in DEXTROSE 5%-WATER - 50 ML IVPB SCH ×3 (02:20→17:16)
[2019-06-13] MEDS: INSULIN SLIDING SCALE (NOVOLOG) 1 VIAL SQ SCH ×4 (06:03→21:37)
[2019-06-13 09:35] LABS: BASO % 0.7 % (0-2.0); EOS % 0.5 % (0-4.5); HEMATOCRIT 31.2 % (32.4-45.2); HEMOGLOBIN 9.8 GM/dL (10.7-15.3); LYMPH % 14.9 % (8-40); MCH 29.6 pg (25.7-33.7); MCHC 31.5 g/dl (32.0-36.0); MEAN CELL VOLUME 93.8 fl (80-96); MEAN PLT VOLUME 11.7 fl (7.5-11.1); NEUT % 80.9 % (42.8-82.8); PLATELET COUNT 276 K/MM3 (134-434); RBC 3.33 M/mm3 (3.60-5.2); RDW 15.5 % (11.6-15.6); WHITE BLOOD COUNT 7.9 K/mm3 (4.0-10.0)
[2019-06-13 10:11] LABS: ALBUMIN 1.3 g/dl (3.4-5.0); BILIRUBIN,TOTAL 0.3 mg/dL (0.2-1); BLOOD UREA NITROGEN 58.5 mg/dL (7-18); CALCIUM 7.9 mg/dL (8.5-10.1); CREATININE 2.2 mg/dL (0.55-1.3); MAGNESIUM 2.3 mg/dL (1.8-2.4); PHOSPHOROUS 4.8 mg/dL (2.5-4.9); POTASSIUM 4.4 mmol/L (3.5-5.1); TOT PROT 4.8 g/dl (6.4-8.2)
--- NOTE | 2019-06-13 10:28 | PN ---
Progress Note (short form) - Note Progress Note: PULMONARY Tachypneic on NRB but saturating >90%. Low grade fevers. Blood pressures borderline. Vital Signs Period Temp Pulse Resp BP Sys/Elizalde Pulse Ox Last 24 Hr 97.7 F-100.5 F 96-108 - 90-137/49-74 97-98 Intake & Output 06/10/19 06/11/19 06/12/19 06/13/19 23:59 23:59 23:59 23:59 Intake Total 6194 934 50 Output Total 121 350 100 Balance 6073 584 -50 Weight 46.72 kg 46.72 kg 46.72 kg 48.308 kg Gen: tachypneic on NRB Heart: RRR Lung: bilateral rhonchi Abd: soft, nontender Ext: no edema CBC, BMP 06/13/19 06:00 06/13/19 06:00 Active Medications Acetaminophen (Tylenol -) 650 mg PO Q6H PRN PRN Reason: Fever Last Admin: 06/11/19 20:40 Dose: 650 mg Documented by: Brimonidine Tartrate (Alphagan 0.2% -) 1 drop OU BID [facility] Last Admin: 06/12/19 21:32 Dose: 1 drop Documented by: Chlorhexidine Gluconate (Hibiclens For Decolonization -) 1 applic TP HS [facility] Last Admin: 06/12/19 21:33 Dose: 1 applic Documented by: Docusate Sodium (Colace -) 100 mg PO BID [facility] Last Admin: 06/12/19 21:35 Dose: Not Given Documented by: Dorzolamide HCl (Trusopt 2%) 1 drop OU BID [facility] Last Admin: 06/12/19 21:32 Dose: 1 drop Documented by: Enoxaparin Sodium (Lovenox -) 40 mg SQ DAILY [facility] Last Admin: 06/12/19 10:45 Dose: 40 mg Documented by: Azithromycin 250 mg/ Dextrose 250 mls @ 250 mls/hr IVPB DAILY [facility] Stop: 06/15/19 09:59 Last Admin: 06/12/19 09:50 Dose: 250 mls/hr Documented by: Piperacillin Sod/Tazobactam (Sod 3.375 gm/ Dextrose) 50 mls @ 100 mls/hr IVPB Q8H-IV [facility]; Protocol Last Admin: 06/13/19 02:20 Dose: 100 mls/hr Documented by: Insulin Aspart (Novolog Vial Sliding Scale -) 1 vial SQ ACHS [facility]; Protocol Last Admin: 06/13/19 06:03 Dose: 2 units Documented by: Latanoprost (Xalatan 0.005% Eye Drops -) 1 drop OU HS [facility] Last Admin: 06/12/19 21:36 Dose: 1 drop Documented by: Lorazepam (Ativan Injection -) 0.5 mg IVPUSH Q3H PRN PRN Reason: ANXIETY Last Admin: 06/12/19 14:07 Dose: 0.5 mg Documented by: Morphine Sulfate (Morphine Sulfate) 2 mg IVPUSH Q3H PRN PRN Reason: PAIN LEVEL 1-5 Last Admin: 06/13/19 02:20 Dose: 2 mg Documented by: Morphine Sulfate (Morphine Sulfate) 4 mg IVPUSH Q3H PRN PRN Reason: PAIN LEVEL 6-10 Last Admin: 06/12/19 14:04 Dose: 4 mg Documented by: Mupirocin (Bactroban Ointment (For Decolonization) -) 1 applic NS BID [facility] Stop: 06/16/19 21:59 Last Admin: 06/12/19 21:33 Dose: Not Given Documented by: Pilocarpine HCl (Pilostat 2% -) 1 drop OU BID [facility] Last Admin: 06/12/19 21:44 Dose: 1 drop Documented by: Polyethylene Glycol (Miralax (For Daily Use) -) 17 gm PO DAILY [facility] Last Admin: 06/12/19 14:01 Dose: Not Given Documented by: Senna (Senna -) 2 tab PO DAILY PRN PRN Reason: CONSTIPATION Timolol Maleate (Timoptic 0.5%) 1 drop OU BID [facility] Last Admin: 06/12/19 21:37 Dose: 1 drop Documented by: A/P Acute on Chronic Hypoxic Respiratory Failure Pneumonia Acute COPD Exacerbation Septic Shock Acute Kidney Injury LV Diastolic Dysfunction Lung Nodule likely malignant Diverticulosis GERD - continue antibiotics per ID - negative serology for COVID-19, will give medrol - inhaled bronchodilators - O2 to keep SpO2 >90% - aspiration precautions - poor prognosis - pt DNR/DNI
--- NOTE | 2019-06-13 10:34 | PN ---
Physical Exam: SUBJECTIVE: Patient seen and examined. She is tachypneic. She complains of pain. OBJECTIVE: Vital Signs Period Temp Pulse Resp BP Sys/Elizalde Pulse Ox Last 24 Hr 97.7 F-100.5 F 96-108 20-26 90-137/49-74 97-98 GENERAL: The patient is awake, alert, in moderate distress. LUNGS: Breath sounds equal, bilateral rhonchi, no wheezes. HEART: Regular rate and rhythm, S1, S2 without murmur, rub or gallop. ABDOMEN: Soft, nontender, nondistended, normoactive bowel sounds, no guarding, no rebound, no hepatosplenomegaly, no masses. EXTREMITIES: 2+ pulses, warm, well-perfused, no edema. Laboratory Results - last 24 hr 06/10/19 06/12/19 06/12/19 13:00 10:52 17:20 WBC RBC Hgb Hct MCV MCH MCHC RDW Plt Count MPV Absolute Neuts (auto) Neutrophils % Lymphocytes % Monocytes % Eosinophils % Basophils % Nucleated RBC % Sodium Potassium Chloride Carbon Dioxide Anion Gap BUN Creatinine Est GFR (CKD-EPI)AfAm Est GFR (CKD-EPI)NonAf POC Glucometer 231 218 Random Glucose Calcium Phosphorus Magnesium Total Bilirubin AST ALT Alkaline Phosphatase Total Protein Albumin COVID-19 PCR Not detected COVID-19 ([facility]) Cancelled 06/12/19 06/13/19 06/13/19 21:38 05:55 06:00 WBC 7.9 RBC 3.33 L Hgb 9.8 L Hct 31.2 L MCV 93.8 MCH 29.6 MCHC 31.5 L RDW 15.5 Plt Count 276 D MPV 11.7 H Absolute Neuts (auto) 6.4 Neutrophils % 80.9 Lymphocytes % 14.9 D Monocytes % 3.0 L Eosinophils % 0.5 Basophils % 0.7 D Nucleated RBC % 0 Sodium Potassium Chloride Carbon Dioxide Anion Gap BUN Creatinine Est GFR (CKD-EPI)AfAm Est GFR (CKD-EPI)NonAf POC Glucometer 123 213 Random Glucose Calcium Phosphorus Magnesium Total Bilirubin AST ALT Alkaline Phosphatase Total Protein Albumin COVID-19 PCR COVID-19 ([facility]ERO) 06/13/19 06:00 WBC RBC Hgb Hct MCV MCH MCHC RDW Plt Count MPV Absolute Neuts (auto) Neutrophils % Lymphocytes % Monocytes % Eosinophils % Basophils % Nucleated RBC % Sodium 136 Potassium 4.4 Chloride 100 Carbon Dioxide 26 Anion Gap 11 BUN 58.5 H Creatinine 2.2 H Est GFR (CKD-EPI)AfAm 23.10 Est GFR (CKD-EPI)NonAf 19.93 POC Glucometer Random Glucose 205 H Calcium 7.9 L Phosphorus 4.8 Magnesium 2.3 Total Bilirubin 0.3 AST 27 ALT 20 Alkaline Phosphatase 123 H Total Protein 4.8 L Albumin 1.3 L COVID-19 PCR COVID-19 ([facility]) Active Medications Generic Name Dose Route Start Last Admin Trade Name Freq PRN Reason Stop Dose Admin Acetaminophen 650 mg 06/10/19 16:07 06/11/19 20:40 Tylenol - PO 650 mg Q6H PRN Administration Fever Brimonidine Tartrate 1 drop 06/11/19 10:00 06/12/19 21:32 Alphagan 0.2% - OU 1 drop BID ERASTO Administration Chlorhexidine Gluconate 1 applic 06/11/19 22:00 06/12/19 21:33 Hibiclens For Decolonization - TP 1 applic HS ERASTO Administration Docusate Sodium 100 mg 06/11/19 10:00 06/12/19 21:35 Colace - PO Not Given BID ERASTO Dorzolamide HCl 1 drop 06/11/19 22:00 06/12/19 21:32 Trusopt 2% OU 1 drop BID ERASTO Administration Enoxaparin Sodium 40 mg 06/10/19 16:15 06/12/19 10:45 Lovenox - SQ 40 mg DAILY ERASTO Administration Azithromycin 250 mg/ Dextrose 250 mls @ 250 mls/hr 06/11/19 10:00 06/12/19 09:50 IVPB 06/15/19 09:59 250 mls/hr DAILY ERASTO Administration Piperacillin Sod/Tazobactam 50 mls @ 100 mls/hr 06/11/19 18:00 06/13/19 02:20 Sod 3.375 gm/ Dextrose IVPB 100 mls/hr Q8H-IV ERASTO Administration Protocol Insulin Aspart 1 vial 06/12/19 07:00 06/13/19 06:03 Novolog Vial Sliding Scale - SQ 2 units ACHS ERASTO Administration Protocol Latanoprost 1 drop 06/11/19 22:00 06/12/19 21:36 Xalatan 0.005% Eye Drops - OU 1 drop HS ERASTO Administration Lorazepam 0.5 mg 06/12/19 12:55 06/12/19 14:07 Ativan Injection - IVPUSH 0.5 mg Q3H PRN Administration ANXIETY Methylprednisolone Sodium Succinate 40 mg 06/13/19 10:30 Solu-Medrol - IVPUSH Q6H-IV ERASTO Morphine Sulfate 2 mg 06/12/19 10:39 06/13/19 02:20 Morphine Sulfate IVPUSH 2 mg Q3H PRN Administration PAIN LEVEL 1-5 Morphine Sulfate 4 mg 06/12/19 13:14 06/12/19 14:04 Morphine Sulfate IVPUSH 4 mg Q3H PRN Administration PAIN LEVEL 6-10 Mupirocin 1 applic 06/11/19 22:00 06/12/19 21:33 Bactroban Ointment (For Decolonization) - NS 06/16/19 21:59 Not Given BID ERASTO Pilocarpine HCl 1 drop 06/11/19 22:00 06/12/19 21:44 Pilostat 2% - OU 1 drop BID ERASTO Administration Polyethylene Glycol 17 gm 06/11/19 10:00 06/12/19 14:01 Miralax (For Daily Use) - PO Not Given DAILY ERASTO Senna 2 tab 06/11/19 10:00 Senna - PO DAILY PRN CONSTIPATION Timolol Maleate 1 drop 06/11/19 10:00 06/12/19 21:37 Timoptic 0.5% OU 1 drop BID ERASTO Administration ASSESSMENT/PLAN: This is an 83 year old woman with a history of HTN, chronic diastolic heart failure, type 2 DM, chronic hypoxic respiratory failure, COPD, adrenal adenoma, Hammond esophagus, lung mass, diverticulosis, GERD, esophageal stricture, gastroparesis who presented to the ED from [facility] [place] with respiratory distress, cough and hypoxia. 1. Septic shock secondary to pneumonia - Continue Zosyn, Zithromax - Off pressors 2. Acute on chronic hypoxic respiratory failure secondary to acute exacerbation of COPD - SoluMedrol started - Oxygen to maintain saturation >90% 3. Acute kidney injury - Start IV fluid - Monitor BUN, creatinine 4. Chronic diastolic heart failure - Stable 5. HTN - On no meds 6. Type 2 DM - Continue Novolog sliding scale 7. Adrenal adenoma 8. GERD with Hammond esophagus 9. 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 Diverticulosis 11. Gastroparesis Visit type - Emergency Visit Emergency Visit: Yes ED Registration Date: 06/10/19 Care time: The patient presented to the Emergency Department on the above date and was hospitalized for further evaluation of their emergent condition. - New Patient This patient is new to me today: Yes Date on this admission: 06/13/19 - Critical Care Critical Care patient: No - Discharge Referral Referred to [facility] Med P.C.: No
[2019-06-13] MEDS: DOCUSATE SODIUM 100 MG CAPSULE (FP) PO SCH ×2 (11:22→21:52)
[2019-06-13] MEDS: MUPIROCIN 2% TOPICAL OINTMENT FOR DECOLONIZATION NS SCH (11:22)
[2019-06-13] MEDS: ENOXAPARIN NA (PORCINE) 40 MG/0.4 ML DISP.SYRIN SQ SCH (11:23)
[2019-06-13] MEDS: POLYETHYLENE GLYCOL 3350 119 GM BTL PO SCH (11:23)
[2019-06-13] MEDS: BRIMONIDINE TARTRATE 0.2% OPHTHALMIC 5 ML BOTTLE OU SCH (11:25)
[2019-06-13] MEDS: DORZOLAMIDE 2% HCL OPHTHALMIC SOLUTION 10 ML BOTTLE OU SCH (11:25)
[2019-06-13] MEDS: TIMOLOL 0.5% OPHTHALMIC SOL 5 ML BOTTLE OU SCH (11:26)
[2019-06-13] MEDS: methylPREDNISolone NA SUCC 40 MG/1 ML VIAL IVPUSH SCH ×2 (11:29→21:48)
[2019-06-13] MEDS: AZITHROMYCIN IVPB 250 MG in DEXTROSE 5%-WATER - 250 ML IVPB SCH (12:10)
[2019-06-13 12:21] LABS: PLATELET ESTIMATE ADEQUATE
[2019-06-13] MEDS: PILOCARPINE 2% OPHTHALMIC SOLUTION 15 ML BOTTLE OU SCH ×2 (15:05→21:53)
--- NOTE | 2019-06-13 22:00 | PN ---
Progress Note, Physician History of Present Illness: Pt weak but arousable. No current distress. Temp 99.3F - Current Medication List Current Medications: Active Medications Acetaminophen (Tylenol -) 650 mg PO Q6H PRN PRN Reason: Fever Last Admin: 06/11/19 20:40 Dose: 650 mg Documented by: Brimonidine Tartrate (Alphagan 0.2% -) 1 drop OU BID ERASTO Last Admin: 06/13/19 11:25 Dose: 1 drop Documented by: Docusate Sodium (Colace -) 100 mg PO BID [facility] Last Admin: 06/13/19 21:52 Dose: Not Given Documented by: Dorzolamide HCl (Trusopt 2%) 1 drop OU BID ERASTO Last Admin: 06/13/19 11:25 Dose: 1 drop Documented by: Enoxaparin Sodium (Lovenox -) 40 mg SQ DAILY [facility] Last Admin: 06/13/19 11:23 Dose: 40 mg Documented by: Azithromycin 250 mg/ Dextrose 250 mls @ 250 mls/hr IVPB DAILY [facility] Stop: 06/15/19 09:59 Last Admin: 06/13/19 12:10 Dose: 250 mls/hr Documented by: Piperacillin Sod/Tazobactam (Sod 2.25 gm/ Dextrose) 50 mls @ 100 mls/hr IVPB Q8H-IV [facility]; Protocol Insulin Aspart (Novolog Vial Sliding Scale -) 1 vial SQ ACHS [facility]; Protocol Last Admin: 06/13/19 21:37 Dose: Not Given Documented by: Latanoprost (Xalatan 0.005% Eye Drops -) 1 drop OU HS [facility] Last Admin: 06/12/19 21:36 Dose: 1 drop Documented by: Lorazepam (Ativan Injection -) 0.5 mg IVPUSH Q3H PRN PRN Reason: ANXIETY Last Admin: 06/12/19 14:07 Dose: 0.5 mg Documented by: Methylprednisolone Sodium Succinate (Solu-Medrol -) 40 mg IVPUSH Q6H-IV ERASTO Last Admin: 06/13/19 21:48 Dose: 40 mg Documented by: Morphine Sulfate (Morphine Sulfate) 2 mg IVPUSH Q3H PRN PRN Reason: PAIN LEVEL 1-5 Last Admin: 06/13/19 10:39 Dose: 2 mg Documented by: Morphine Sulfate (Morphine Sulfate) 4 mg IVPUSH Q3H PRN PRN Reason: PAIN LEVEL 6-10 Last Admin: 06/12/19 14:04 Dose: 4 mg Documented by: Pilocarpine HCl (Pilostat 2% -) 1 drop OU BID [facility] Last Admin: 06/13/19 21:53 Dose: 1 drop Documented by: Polyethylene Glycol (Miralax (For Daily Use) -) 17 gm PO DAILY [facility] Last Admin: 06/13/19 11:23 Dose: Not Given Documented by: Senna (Senna -) 2 tab PO DAILY PRN PRN Reason: CONSTIPATION Timolol Maleate (Timoptic 0.5%) 1 drop OU BID [facility] Last Admin: 06/13/19 11:26 Dose: 1 drop Documented by: - Objective Vital Signs: Vital Signs Temperature 99.3 F 06/13/19 19:21 Pulse Rate 93 H 06/13/19 19:21 Respiratory Rate 20 06/13/19 19:21 Blood Pressure 99/51 L 06/13/19 19:21 O2 Sat by Pulse Oximetry (%) 97 06/12/19 22:00 Constitutional: Yes: No Distress, Other (weak) Eyes: Yes: Conjunctiva Clear Cardiovascular: Yes: Regular Rate and Rhythm Respiratory: Yes: Diminished, On Venti-Mask Gastrointestinal: Yes: Normal Bowel Sounds, Soft Genitourinary: Yes: WNL Extremities: Yes: WNL Integumentary: Yes: WNL Neurological: Yes: Lethargy Labs: CBC, BMP 06/13/19 06:00 06/13/19 06:00 INR, PTT INR 0.81 (0.83-1.09) L 06/10/19 12:33 Laboratory Last Values WBC 7.9 K/mm3 (4.0-10.0) 06/13/19 06:00 RBC 3.33 M/mm3 (3.60-5.2) L 06/13/19 06:00 Hgb 9.8 GM/dL (10.7-15.3) L 06/13/19 06:00 Hct 31.2 % (32.4-45.2) L 06/13/19 06:00 MCV 93.8 fl (80-96) 06/13/19 06:00 MCH 29.6 pg (25.7-33.7) 06/13/19 06:00 MCHC 31.5 g/dl (32.0-36.0) L 06/13/19 06:00 RDW 15.5 % (11.6-15.6) 06/13/19 06:00 Plt Count 276 K/MM3 (134-434) D 06/13/19 06:00 MPV 11.7 fl (7.5-11.1) H 06/13/19 06:00 Absolute Neuts (auto) 6.4 K/mm3 (1.5-8.0) 06/13/19 06:00 Neutrophils % 80.9 % (42.8-82.8) 06/13/19 06:00 Neutrophils % (Manual) 76.0 % (42.8-82.8) 06/13/19 06:00 Band Neutrophils % 13.0 % 06/13/19 06:00 Lymphocytes % 14.9 % (8-40) D 06/13/19 06:00 Lymphocytes % (Manual) 7.0 % (8-40) L D 06/13/19 06:00 Monocytes % 3.0 % (3.8-10.2) L 06/13/19 06:00 Monocytes % (Manual) 1 % (3.8-10.2) L 06/13/19 06:00 Eosinophils % 0.5 % (0-4.5) 06/13/19 06:00 Eosinophils % (Manual) 0.0 % (0-4.5) 06/13/19 06:00 Basophils % 0.7 % (0-2.0) D 06/13/19 06:00 Basophils % (Manual) 0.0 % (0-2.0) 06/13/19 06:00 Myelocytes % (Man) 1 % (0-2) 06/13/19 06:00 Promyelocytes % (Man) 0 % (0-2) 06/11/19 05:30 Blast Cells % (Manual) 0 % (0-0) 06/11/19 05:30 Nucleated RBC % 0 % (0-0) 06/13/19 06:00 Metamyelocytes 2 % (0-2) D 06/13/19 06:00 Hypochromia 0 06/11/19 05:30 Platelet Estimate Adequate 06/13/19 06:00 Platelet Comment Large platelets 06/13/19 06:00 Polychromasia 1+ 06/11/19 05:30 Poikilocytosis 0 06/11/19 05:30 Anisocytosis 1+ 06/11/19 05:30 Microcytosis 0 06/11/19 05:30 Macrocytosis 1+ 06/11/19 05:30 PT with INR 9.50 SEC (9.7-13.0) L 06/10/19 12:33 INR 0.81 (0.83-1.09) L 06/10/19 12:33 PTT (Actin FS) 36.9 SECONDS (25.2-36.5) H 06/10/19 12:33 VBG pH 7.32 (7.31-7.41) 06/10/19 18:20 POC VBG pCO2 54.6 mmHg (38-52) H 06/10/19 18:20 POC VBG pO2 51.1 mmHg (28-48) H 06/10/19 18:20 VBG HCO3 27.4 mmol/L (23-29) 06/10/19 18:20 VBG O2 Sat (Pamella) 79.5 % (70-80) 06/10/19 18:20 VBG Base Excess 1.0 meq/l (-2-2) 06/10/19 18:20 Sodium 136 mmol/L (136-145) 06/13/19 06:00 Potassium 4.4 mmol/L (3.5-5.1) 06/13/19 06:00 Chloride 100 mmol/L (98-107) 06/13/19 06:00 Carbon Dioxide 26 mmol/L (21-32) 06/13/19 06:00 Anion Gap 11 MMOL/L (8-16) 06/13/19 06:00 BUN 58.5 mg/dL (7-18) H 06/13/19 06:00 Creatinine 2.2 mg/dL (0.55-1.3) H 06/13/19 06:00 Est GFR (CKD-EPI)AfAm 23.10 06/13/19 06:00 Est GFR (CKD-EPI)NonAf 19.93 06/13/19 06:00 POC Glucometer 192 UNITS (80-120) 06/13/19 21:35 Random Glucose 205 mg/dL (74-106) H 06/13/19 06:00 Lactic Acid 1.6 mmol/L (0.4-2.0) 06/10/19 12:33 Calcium 7.9 mg/dL (8.5-10.1) L 06/13/19 06:00 Phosphorus 4.8 mg/dL (2.5-4.9) 06/13/19 06:00 Magnesium 2.3 mg/dL (1.8-2.4) 06/13/19 06:00 Total Bilirubin 0.3 mg/dL (0.2-1) 06/13/19 06:00 AST 27 U/L (15-37) 06/13/19 06:00 ALT 20 U/L (13-61) 06/13/19 06:00 Alkaline Phosphatase 123 U/L (45-117) H 06/13/19 06:00 Creatine Kinase 90 U/L (26-192) 06/10/19 12:33 CK-MB (CK-2) 1.7 ng/mL (0.5-3.6) 06/10/19 12:33 Troponin I < 0.02 ng/ml (0.00-0.05) 06/10/19 12:33 Total Protein 4.8 g/dl (6.4-8.2) L 06/13/19 06:00 Albumin 1.3 g/dl (3.4-5.0) L 06/13/19 06:00 TSH 0.63 uIU/ml (0.358-3.74) 06/11/19 05:30 Urine Color Dk yellow 06/10/19 13:20 Urine Appearance Cloudy 06/10/19 13:20 Urine pH 5.0 (5.0-8.0) 06/10/19 13:20 Ur Specific [place] 1.019 (1.010-1.035) 06/10/19 13:20 Urine Protein Trace (NEGATIVE) 06/10/19 13:20 Urine Glucose (UA) Negative (NEGATIVE) 06/10/19 13:20 Urine Ketones Trace (NEGATIVE) H 06/10/19 13:20 Urine Blood Negative (NEGATIVE) 06/10/19 13:20 Urine Nitrite Negative (NEGATIVE) 06/10/19 13:20 Urine Bilirubin Negative (NEGATIVE) 06/10/19 13:20 Urine Urobilinogen 0.2 mg/dL (0.2-1.0) 06/10/19 13:20 Ur Leukocyte Esterase Negative (NEGATIVE) 06/10/19 13:20 COVID-19 PCR Not detected 06/10/19 13:00 COVID-19 ([facility]) Cancelled 06/10/19 13:00 Influenza A (Rapid) Negative (Negative) 06/10/19 13:00 Influenza B (Rapid) Negative (Negative) 06/10/19 13:00 Blood Type O POSITIVE 06/10/19 18:50 Antibody Screen Negative 06/10/19 18:50 - ....Imaging Chest X-ray: Report Reviewed Problem List - Problems (1) Pneumonia Code(s): J18.9 - PNEUMONIA, UNSPECIFIED ORGANISM Qualifiers: Pneumonia type: due to unspecified organism Laterality: right (2) Respiratory distress Code(s): R06.03 - ACUTE RESPIRATORY DISTRESS (3) Sepsis Code(s): A41.9 - SEPSIS, UNSPECIFIED ORGANISM Qualifiers: Sepsis type: sepsis due to unspecified organism Sepsis acute organ dysfunction status: unspecified Qualified Code(s): A41.9 - Sepsis, unspecified organism (4) CAIN (acute kidney injury) Code(s): N17.9 - ACUTE KIDNEY FAILURE, UNSPECIFIED (5) Acute respiratory failure Code(s): J96.00 - ACUTE RESPIRATORY FAILURE, UNSP W HYPOXIA OR HYPERCAPNIA Qualifiers: Respiratory failure complication: hypoxia Qualified Code(s): J96.01 - Acute respiratory failure with hypoxia (6) Barretts esophagus Code(s): K22.70 - HANKS'S ESOPHAGUS WITHOUT DYSPLASIA (7) CHF (congestive heart failure) Code(s): I50.9 - HEART FAILURE, UNSPECIFIED (8) COPD exacerbation Code(s): J44.1 - CHRONIC OBSTRUCTIVE PULMONARY DISEASE W (ACUTE) EXACERBATION (9) Cavitating mass of lung Code(s): J98.4 - OTHER DISORDERS OF LUNG Assessment/Plan Sepsis/Shock PNA COPD exacerbation CAIN Acute resp failure Lung mass - suspect malignancy -- COVID-19 PCR negative -- continue Zosyn (dose adjusted), Azithromycin -- Blood culture (1 bottle on admission positive), repeat blood culture -- monitor renal function , worsening -- Urine Culture - monitor O2 sat/vitals
[2019-06-14] MEDS: BRIMONIDINE TARTRATE 0.2% OPHTHALMIC 5 ML BOTTLE OU SCH ×3 (00:02→22:28)
[2019-06-14] MEDS: TIMOLOL 0.5% OPHTHALMIC SOL 5 ML BOTTLE OU SCH ×3 (00:02→22:29)
[2019-06-14] MEDS: DORZOLAMIDE 2% HCL OPHTHALMIC SOLUTION 10 ML BOTTLE OU SCH ×3 (00:03→22:29)
[2019-06-14] MEDS: LATANOPROST 0.005% OPHTH SOLN 2.5ML BOTTLE OU SCH ×2 (00:03→22:30)
[2019-06-14] MEDS ORDERED: DEXTROSE 5%-WATER - 50 ML IVPB ONE ×3 (02:15→17:05)
[2019-06-14] MEDS ORDERED: PIPERACILLIN/TAZOBACTAM 2.25 GM VIAL IVPB ONE ×3 (02:15→17:05)
[2019-06-14] MEDS: methylPREDNISolone NA SUCC 40 MG/1 ML VIAL IVPUSH SCH ×5 (02:23→17:33)
[2019-06-14] MEDS: PIPERACILLIN/TAZOB 2.25 GM 2.25 GM in DEXTROSE 5%-WATER - 50 ML IVPB SCH ×3 (02:24→17:33)
[2019-06-14] MEDS: INSULIN SLIDING SCALE (NOVOLOG) 1 VIAL SQ SCH ×4 (09:30→22:36)
[2019-06-14] MEDS: ENOXAPARIN NA (PORCINE) 40 MG/0.4 ML DISP.SYRIN SQ SCH (10:29)
[2019-06-14] MEDS: POLYETHYLENE GLYCOL 3350 119 GM BTL PO SCH (10:30)
[2019-06-14] MEDS: DOCUSATE SODIUM 100 MG CAPSULE (FP) PO SCH ×2 (10:30→22:28)
[2019-06-14] MEDS: PILOCARPINE 2% OPHTHALMIC SOLUTION 15 ML BOTTLE OU SCH ×2 (10:33→22:28)
[2019-06-14] MEDS: MORPHINE SULFATE 2 MG/ML VIAL IVPUSH PRN (10:43)
[2019-06-14] MEDS ORDERED: oxyCODONE HCL 5 MG TABLET PO PRN (11:36)
--- NOTE | 2019-06-14 12:09 | DS ---
Physical Exam: SUBJECTIVE: Patient seen and examined at bedside c/o Lower back pain. She is tolerating her diet and denies any CP, SOB, N/V, Fever or chills. OBJECTIVE: Vital Signs Period Temp Pulse Resp BP Sys/Elizalde Pulse Ox Last 24 Hr 69 F-99.3 F 53-97 18-22 85-125/51-73 100-100 PHYSICAL EXAM GENERAL: The patient is awake, alert, oriented, in no acute distress. HEAD: Normal with no signs of trauma. EYES: sclera anicteric, conjunctiva clear. ENT: Ears normal, nares patent moist mucous membranes. NECK: Trachea midline, LUNGS: Breath sounds equal bilaterally, mild expiratory wheezes, no crackles, no accessory muscle use. no CVA tenderness HEART: Regular rate and rhythm, S1, S2 ABDOMEN: Soft, nontender, nondistended, no guarding, no rebound, no hepatosplenomegaly, no masses. EXTREMITIES: 2+ pulses, warm, well-perfused, no edema. NEUROLOGICAL: Cranial nerves II through XII grossly intact. Normal speech, gait not observed. PSYCH: Normal mood, normal affect. SKIN: Warm, dry, normal turgor, no rashes or lesions noted. LABS Laboratory Results - last 24 hr 06/13/19 06/13/19 06/13/19 06:00 12:12 17:11 Neutrophils % (Manual) 76.0 Band Neutrophils % 13.0 Lymphocytes % (Manual) 7.0 L D Monocytes % (Manual) 1 L Eosinophils % (Manual) 0.0 Basophils % (Manual) 0.0 Myelocytes % (Man) 1 Metamyelocytes 2 D Platelet Estimate Adequate Platelet Comment Large platelets POC Glucometer 138 274 06/13/19 06/14/19 06/14/19 21:35 05:57 11:23 Neutrophils % (Manual) Band Neutrophils % Lymphocytes % (Manual) Monocytes % (Manual) Eosinophils % (Manual) Basophils % (Manual) Myelocytes % (Man) Metamyelocytes Platelet Estimate Platelet Comment POC Glucometer 192 97 237 HOSPITAL COURSE: Date of Admission:06/10/19 The patient is a 83 year old female, with a significant past medical history of hypertension, hyperlipidemia, diabetes mellitus, COPD (on home O2),[id number] with h/o HTN, IDDM, COPD on home O2, CHF, adrenal adenoma, Hammond's esophagus, cavitating lung mass, diverticulosis, GERD with stricture, gastroparesis, who was recently admitted to [facility] for PNA and discharged back to NH 06/09/19 who retu rns to the ED BIBEMS for respiratory distress, cough, and hypoxia worsening despite antibiotics. At the ED, patient was found to be hypotensive, not responsive to IVF boluses. Central line was placed and levophed drip was started. The patient was admitted to the ICU and started on IV Zosyn and Azithromycin. The patient was not intubated 2/2 DNR/DNI and she was maintained in the ICU on a venti mask, bronchodialators and solumedrol. Patient had a negative serology for COVID-19 and was transferred to the floor once off pressors. She maintained low O2 saturation on NC but was comfortable. She was converted to PO Augmentin and d/c back to NH. Date of Discharge: 06/14/19 Minutes to complete discharge: 25 Discharge Summary Problems reviewed: Yes Reason For Visit: SUSP 2019 NOVEL CORONAVIRUS INF,SEPSIS,PNEUMONIA Current Active Problems Hypoxia (Acute) Pneumonia (Acute) Respiratory distress (Acute) Sepsis (Acute) Suspected 2019 novel coronavirus infection (Acute) Condition: Guarded - Instructions - Home Medications Comprehensive Discharge Medication List: Ambulatory Orders Amlodipine Besylate [Norvasc -] 5 mg PO DAILY 03/22/14 Losartan Potassium 100 mg PO DAILY 03/23/14 Acetaminophen W/ Codeine #3 [Tylenol # 3 -] 1 tab PO TID PRN 04/20/16 Brimonidine Tartrate/Timolol [Combigan 0.2%-0.5% Eye Drops] 1 drop OU DAILY 04/20/16 Latanoprost 0.005% Eye Drops [Xalatan 0.005% Eye Drops -] 1 drop OU HS 04/20/16 Glipizide 5 mg PO DAILY 01/26/17 Pilocarpine 2% [Pilostat 2% -] 1 drop OP BID 10/03/18 Ascorbic Acid [Vitamin C] 500 mg PO DAILY 05/22/19 Dorzolamide HCl/Pf [Dorzolamide 2% Eye Drop] 1 drop OP BID 05/22/19 Multivitamins [Tab-A-Vit -] 1 tab PO DAILY 05/22/19 Polyethylene Glycol 3350 [Miralax 119 gm Btl -] 17 gm PO DAILY 05/22/19 Sennosides [Senna] 2 tab PO PRN 05/22/19 Silver Sulfadiazine 1% Top Cr [Silvadene -] 1 applic TP DAILY 05/22/19 Zinc Sulfate 220 mg PO DAILY 05/22/19 Docusate Sodium [Colace] 100 mg PO BID 06/03/19 Pantoprazole Sodium 40 mg PO DAILY 06/03/19 Albuterol 2.5/Ipratropium 0.5 [Duoneb -] 1 amp NEB BID PRN amp 06/08/19 Alprazolam [Xanax] 0.5 mg PO Q8H PRN tablet 06/08/19 Aa/Hydrolyzed Collagen, Whey [Lps 15-30 Liquid] 30 ml PO BID 06/10/19 Insulin Detemir [Levemir Flextouch] 8 unit SQ HS 06/10/19 Insulin Lispro [Admelog Solostar] 0 unit SQ ASDIR 06/10/19 predniSONE [Deltasone -] 10 mg PO DAILY 06/10/19 Problem List - Problems (1) Acute exacerbation of CHF (congestive heart failure) Assessment/Plan: ASSESSMENT/PLAN: Code(s): I50.9 - HEART FAILURE, UNSPECIFIED Qualifiers: Heart failure type: unspecified Qualified Code(s): I50.9 - Heart failure, unspecified - Discharge Referral Referred to [facility] Med P.C.: No
[2019-06-14 12:29] LABS: BASO % 0.1 % (0-2.0); HEMATOCRIT 31.2 % (32.4-45.2); LYMPH % 7.7 % (8-40); MCH 29.9 pg (25.7-33.7); MCHC 32.1 g/dl (32.0-36.0); MEAN CELL VOLUME 93.2 fl (80-96); MEAN PLT VOLUME 11.7 fl (7.5-11.1); NEUT % 90.2 % (42.8-82.8); PLATELET COUNT 348 K/MM3 (134-434); RBC 3.35 M/mm3 (3.60-5.2); RDW 15.4 % (11.6-15.6); WHITE BLOOD COUNT 11.8 K/mm3 (4.0-10.0)
[2019-06-14 12:44] LABS: BLOOD UREA NITROGEN 72.8 mg/dL (7-18); CALCIUM 7.7 mg/dL (8.5-10.1); CREATININE 2.8 mg/dL (0.55-1.3); POTASSIUM 4.4 mmol/L (3.5-5.1)
--- NOTE | 2019-06-14 12:53 | PN ---
Progress Note (short form) - Note Progress Note: Patient seen and examined at bedside c/o Lower back pain. She is tolerating her diet and denies any CP, SOB, N/V, Fever or chills. OBJECTIVE: Vital Signs Temp 97.4 F L 06/14/19 09:32 Pulse 89 06/14/19 09:32 Resp 22 H 06/14/19 09:32 BP 93/51 L 06/14/19 09:32 Pulse Ox 100 06/13/19 22:00 Intake & Output 06/13/19 06/14/19 06/14/19 23:59 11:59 23:59 Intake Total 440 50 Output Total 120 100 Balance 320 -50 Weight 105 lb Intake: IVPB 350 Oral 90 50 Output: Urine 120 100 [place] 120 100 Other: Voiding Method Indwelling Catheter Indwelling Catheter Bowel Movement Yes No # Bowel Movements 2 Weight Measurement Method Built in [facility] CBC, BMP 06/14/19 10:50 06/14/19 10:50 Abnormal Lab Results 06/14/19 06/14/19 10:50 10:50 WBC 11.8 H RBC 3.35 L Hgb 10.0 L Hct 31.2 L MPV 11.7 H Absolute Neuts (auto) 10.7 H Neutrophils % 90.2 H Lymphocytes % 7.7 L D Monocytes % 2.0 L BUN 72.8 H Creatinine 2.8 H Random Glucose 291 H Calcium 7.7 L PHYSICAL EXAM GENERAL: The patient is awake, alert, oriented, in no acute distress. HEAD: Normal with no signs of trauma. EYES: sclera anicteric, conjunctiva clear. ENT: Ears normal, nares patent moist mucous membranes. NECK: Trachea midline, LUNGS: coarse Breath sounds bilaterally, mild expiratory wheezes, no crackles, no accessory muscle use. no CVA tenderness HEART: Regular rate and rhythm, S1, S2 ABDOMEN: Soft, nontender, nondistended, no guarding, no rebound, no hepatosplenomegaly, no masses. EXTREMITIES: 2+ pulses, warm, well-perfused, no edema. NEUROLOGICAL: Cranial nerves II through XII grossly intact. Normal speech, gait not observed. PSYCH: Normal mood, normal affect. SKIN: Warm, dry, normal turgor, no rashes or lesions noted. Problem List - Problems (1) Acute exacerbation of CHF (congestive heart failure) Assessment/Plan: This is an 83 year old woman with a history of HTN, chronic diastolic heart failure, type 2 DM, chronic hypoxic respiratory failure, COPD, adrenal adenoma, Hammond esophagus, lung mass, diverticulosis, GERD, esophageal stricture, gastroparesis who presented to the ED from [facility] with respiratory distress, cough and hypoxia. 1. Septic shock secondary to pneumonia - Continue Zosyn, Zithromax- ID recs appreciated - Off pressors 2. Acute on chronic hypoxic respiratory failure secondary to acute exacerbation of COPD - continue SoluMedrol-convert to prednisone per pulmonary - Oxygen to maintain saturation >90% 3. Acute kidney injury -Renal consult appreciated-BUN/Creatinine continues to climb - continue IV fluid - Monitor BUN, creatinine 4. Chronic diastolic heart failure - Stable 5. HTN - On no meds 6. Type 2 DM - Continue Novolog sliding scale 7. Adrenal adenoma 8. GERD with Hammond esophagus 9. 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 Diverticulosis 11. Gastroparesis Evaluation and plan discussed with Dr Garcia. Problems reviewed: Yes Code(s): I50.9 - HEART FAILURE, UNSPECIFIED Qualifiers: Heart failure type: unspecified Qualified Code(s): I50.9 - Heart failure, unspecified
[2019-06-14 13:03] LABS: ANISOCYTOSIS 1+; MACROCYTOSIS 1+; PLATELET ESTIMATE NORMAL
[2019-06-14] MEDS: SODIUM CHLORIDE 1,000 ML IV SCH (14:00)
[2019-06-14] MEDS: oxyCODONE HCL 5 MG TABLET PO PRN ×2 (14:04→20:54)
--- NOTE | 2019-06-14 14:44 | PN ---
Progress Note (short form) - Note Progress Note: PULMONARY Breathing much better today. Less cough. Now on nasal cannula. Vital Signs Period Temp Pulse Resp BP Sys/Elizalde Pulse Ox Last 24 Hr 69 F-99.3 F 53-97 18-22 85-125/38-73 93-100 Gen: less tachypneic Heart: RRR Lung: scattered rhonchi Abd: soft, nontender Ext: no edema CBC, BMP 06/14/19 10:50 06/14/19 10:50 Active Medications Acetaminophen (Tylenol -) 650 mg PO Q6H PRN PRN Reason: Fever Last Admin: 06/11/19 20:40 Dose: 650 mg Documented by: Brimonidine Tartrate (Alphagan 0.2% -) 1 drop OU BID [facility] Last Admin: 06/14/19 10:33 Dose: 1 drop Documented by: Docusate Sodium (Colace -) 100 mg PO BID [facility] Last Admin: 06/14/19 10:30 Dose: 100 mg Documented by: Dorzolamide HCl (Trusopt 2%) 1 drop OU BID [facility] Last Admin: 06/14/19 10:34 Dose: 1 drop Documented by: Enoxaparin Sodium (Lovenox -) 40 mg SQ DAILY [facility] Last Admin: 06/14/19 10:29 Dose: 40 mg Documented by: Piperacillin Sod/Tazobactam (Sod 2.25 gm/ Dextrose) 50 mls @ 100 mls/hr IVPB Q8H-IV [facility]; Protocol Last Admin: 06/14/19 10:30 Dose: 100 mls/hr Documented by: Sodium Chloride (Normal Saline -) 1,000 mls @ 75 mls/hr IV ASDIR [facility] Last Admin: 06/14/19 14:00 Dose: 75 mls/hr Documented by: Insulin Aspart (Novolog Vial Sliding Scale -) 1 vial SQ ACHS [facility]; Protocol Last Admin: 06/14/19 11:59 Dose: 2 units Documented by: Latanoprost (Xalatan 0.005% Eye Drops -) 1 drop OU HS [facility] Last Admin: 06/14/19 00:03 Dose: 1 drop Documented by: Lorazepam (Ativan Injection -) 0.5 mg IVPUSH Q3H PRN PRN Reason: ANXIETY Last Admin: 06/12/19 14:07 Dose: 0.5 mg Documented by: Methylprednisolone Sodium Succinate (Solu-Medrol -) 40 mg IVPUSH Q6H-IV [facility] Last Admin: 06/14/19 14:09 Dose: 40 mg Documented by: Oxycodone HCl (Roxicodone -) 5 mg PO Q4H PRN PRN Reason: PAIN LEVEL 1-5 Oxycodone HCl (Roxicodone -) 10 mg PO Q4H PRN PRN Reason: PAIN LEVEL 6-10 Last Admin: 06/14/19 14:04 Dose: 10 mg Documented by: Pilocarpine HCl (Pilostat 2% -) 1 drop OU BID [facility] Last Admin: 06/14/19 10:33 Dose: 1 drop Documented by: Polyethylene Glycol (Miralax (For Daily Use) -) 17 gm PO DAILY [facility] Last Admin: 06/14/19 10:30 Dose: Not Given Documented by: Senna (Senna -) 2 tab PO DAILY PRN PRN Reason: CONSTIPATION Timolol Maleate (Timoptic 0.5%) 1 drop OU BID [facility] Last Admin: 06/14/19 10:34 Dose: 1 drop Documented by: A/P Acute on Chronic Hypoxic Respiratory Failure Pneumonia Acute COPD Exacerbation Septic Shock Acute Kidney Injury LV Diastolic Dysfunction Lung Nodule likely malignant Diverticulosis GERD - continue antibiotics per ID - taper medrol - inhaled bronchodilators - O2 to keep SpO2 >90% - aspiration precautions - pt DNR/DNI
[2019-06-14 15:11] VITALS: BMI 19.2
--- NOTE | 2019-06-14 15:11 | CON.NEP ---
Consult Consult Specialty:: Nephrology Referred by:: Medicine Reason for Consultation:: CAIN - History of Present Illness Chief Complaint: SOB History of Present Illness: 83 year old woman with history of hypertension, DM, COPD, CHF (diastolic dysfunction), barrestts esophagus, Lung mass, diverticulosis admitted with PNA/Sepsis now with CAIN. Seen and examined at the bedside. Complain of abdominal pain and mild sob. No cough. No fever or chills. No N/V but is having diarrhea. No flank pain. No history of kidney stones. Making urine. - History Source History Provided By: Patient, Medical Record Limitations to Obtaining History: No Limitations - Past Medical History Cardio/Vascular: Yes: CHF, HTN Pulmonary: Yes: COPD, O2 Dependent Gastrointestinal: Yes: Gastritis, GERD Hepatobiliary: Yes: Other (fatty liver) ...: No Musculoskeletal: Yes: Chronic low back pain Endocrine: Yes: Diabetes Mellitus - Past Surgical History Past Surgical History: Yes: Colonoscopy, Hysterectomy - Alcohol/Substance Use Hx Alcohol Use: No History of Substance Use: reports: None - Smoking History Smoking history: Smoker current status UNK Have you smoked in the past 12 months: No Aproximately how many cigarettes per day: 2 If you are a former smoker, when did you quit?: 10 days ago - Social History Usual Living Arrangement: Alone ADL: Independent 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 History of Recent Travel: No Home Medications - Allergies Allergies/Adverse Reactions: Allergies Allergy/AdvReac Type Severity Reaction Status Date / Time No Known Allergies Allergy Verified 06/10/19 12:39 - Home Medications Home Medications: Ambulatory Orders Amlodipine Besylate [Norvasc -] 5 mg PO DAILY 03/22/14 Losartan Potassium 100 mg PO DAILY 03/23/14 Acetaminophen W/ Codeine #3 [Tylenol # 3 -] 1 tab PO TID PRN 04/20/16 Brimonidine Tartrate/Timolol [Combigan 0.2%-0.5% Eye Drops] 1 drop OU DAILY 04/20/16 Latanoprost 0.005% Eye Drops [Xalatan 0.005% Eye Drops -] 1 drop OU HS 04/20/16 Glipizide 5 mg PO DAILY 01/26/17 Pilocarpine 2% [Pilostat 2% -] 1 drop OP BID 10/03/18 Ascorbic Acid [Vitamin C] 500 mg PO DAILY 05/22/19 Dorzolamide HCl/Pf [Dorzolamide 2% Eye Drop] 1 drop OP BID 05/22/19 Multivitamins [Tab-A-Vit -] 1 tab PO DAILY 05/22/19 Polyethylene Glycol 3350 [Miralax 119 gm Btl -] 17 gm PO DAILY 05/22/19 Sennosides [Senna] 2 tab PO PRN 05/22/19 Silver Sulfadiazine 1% Top Cr [Silvadene -] 1 applic TP DAILY 05/22/19 Zinc Sulfate 220 mg PO DAILY 05/22/19 Docusate Sodium [Colace] 100 mg PO BID 06/03/19 Pantoprazole Sodium 40 mg PO DAILY 06/03/19 Albuterol 2.5/Ipratropium 0.5 [Duoneb -] 1 amp NEB BID PRN amp 06/08/19 Alprazolam [Xanax] 0.5 mg PO Q8H PRN tablet 06/08/19 Aa/Hydrolyzed Collagen, Whey [Lps 15-30 Liquid] 30 ml PO BID 06/10/19 Insulin Detemir [Levemir Flextouch] 8 unit SQ HS 06/10/19 Insulin Lispro [Admelog Solostar] 0 unit SQ ASDIR 06/10/19 predniSONE [Deltasone -] 10 mg PO DAILY 06/10/19 Family Medical History Family History: Unremarkable Review of Systems - Review of Systems Constitutional: reports: No Symptoms Eyes: reports: No Symptoms HENT: reports: No Symptoms Neck: reports: No Symptoms Cardiovascular: reports: Shortness of Breath. denies: Edema Respiratory: reports: SOB Gastrointestinal: reports: No Symptoms Genitourinary: reports: No Symptoms Musculoskeletal: reports: Back Pain Neurological: reports: No Symptoms Endocrine: reports: No Symptoms Nephrology Consult - Height Height: 5 ft 2 in - Weight Weight: 47.627 kg - BMI Body Mass Index (BMI): 19.2 - Lab Results CBC,BMP: CBC, BMP 06/14/19 10:50 06/14/19 10:50 Anion Gap: Anion Gap Anion Gap 15 MMOL/L (8-16) 06/14/19 10:50 - Imaging Chest X-ray: Report Reviewed - Physical Examination Vital Signs: Vital Signs Temperature 97.5 F L 06/14/19 14:25 Pulse Rate 77 06/14/19 14:25 Respiratory Rate 20 06/14/19 14:25 Blood Pressure 92/38 L 06/14/19 14:25 O2 Sat by Pulse Oximetry (%) 93 L 06/14/19 09:00 Constitutional: Yes: No Distress, Calm Eyes: Yes: Conjunctiva Clear HENT: Yes: Atraumatic, Normocephalic Neck: Yes: Supple, Trachea Midline Cardiovascular: Yes: Regular Rate and Rhythm, S1, S2. No: Murmur, Rub Respiratory: Yes: Regular, On Nasal O2, Rhonchi, SOB Gastrointestinal: Yes: Normal Bowel Sounds, Soft, Distention. No: Tenderness, Rebound Renal/: Yes: Lui Present. No: Anuria, Bladder Distention, CVA Tenderness - Left, CVA Tenderness - Right Extremities: No: Cold, Cool, Cyanosis Edema: Yes (sacral) Neurological: Yes: Alert, Oriented Problem List - Problems (1) Pneumonia Code(s): J18.9 - PNEUMONIA, UNSPECIFIED ORGANISM Qualifiers: Pneumonia type: due to unspecified organism Laterality: right (2) Sepsis Code(s): A41.9 - SEPSIS, UNSPECIFIED ORGANISM Qualifiers: Sepsis type: sepsis due to unspecified organism Sepsis acute organ dysfunction status: unspecified Qualified Code(s): A41.9 - Sepsis, unspecified organism (3) Suspected 2019 novel coronavirus infection Code(s): R68.89 - OTHER GENERAL SYMPTOMS AND SIGNS (4) CAIN (acute kidney injury) Code(s): N17.9 - ACUTE KIDNEY FAILURE, UNSPECIFIED (5) Abdominal pain Code(s): R10.9 - UNSPECIFIED ABDOMINAL PAIN Qualifiers: Abdominal location: left lower quadrant Qualified Code(s): R10.32 - Left lower quadrant pain (6) Acute exacerbation of CHF (congestive heart failure) Code(s): I50.9 - HEART FAILURE, UNSPECIFIED Qualifiers: Heart failure type: unspecified Qualified Code(s): I50.9 - Heart failure, unspecified (7) COPD exacerbation Code(s): J44.1 - CHRONIC OBSTRUCTIVE PULMONARY DISEASE W (ACUTE) EXACERBATION Assessment/Plan 83 year old woman with history of hypertension, DM, COPD, CHF (diastolic dysfunction), barrestts esophagus, Lung mass, diverticulosis admitted with PNA/Sepsis now with CAIN. 1. Acute kidney injury r/o ATN vs. AIN vs. intravascular volume depletion vs. obstruction 2. PNA 3. COPD exacerbation 4. Hx of diastolic HF w/o acute exacerbation 5. DM Check urine studies for FeNa, Eosinophils, UA and UPCR Check Renal US to r/o obstruction maintain lui for now, flush daily Agree with trial of isotonic fluids no acute need for BIOLOGICAL INSPECTOR Maintain MAP > 65 avoid nephrotoxins/IV contrast/NSAIDs No evidence of uremia despite high BUN (on steroids) Trend renal function and electrolytes daily Thank you Chon Woods DO
[2019-06-14 18:45] LABS: EPI CELLS 36 /uL (0-25.1); HYALINE CASTS 10 /uL (0-3.1); URINE APPEARANCE TURBID; URINE BILIRUBIN NEGATIVE (NEGATIVE); URINE COLOR DK YELLOW; URINE GLUCOSE (UA) NEGATIVE (NEGATIVE); URINE KETONE TRACE (NEGATIVE); URINE LEUK ESTERASE 2+ (NEGATIVE); URINE NITRITE NEGATIVE (NEGATIVE); URINE PROTEIN 1+ (NEGATIVE); URINE WBC 720 /uL (0-25.8)
[2019-06-14 19:50] LABS: URINE BACTERIA 2.3 /uL (0-1359); URINE RBC 9020.5 /uL (0-23.9); YEAST FEW (NEGATIVE)
--- NOTE | 2019-06-14 22:00 | PN ---
Progress Note, Physician History of Present Illness: Pt afebrile, without distress on O2 NC. Renal function worsening. Nephrology following. - Current Medication List Current Medications: Active Medications Acetaminophen (Tylenol -) 650 mg PO Q6H PRN PRN Reason: Fever Last Admin: 06/11/19 20:40 Dose: 650 mg Documented by: Brimonidine Tartrate (Alphagan 0.2% -) 1 drop OU BID [facility] Last Admin: 06/14/19 10:33 Dose: 1 drop Documented by: Docusate Sodium (Colace -) 100 mg PO BID [facility] Last Admin: 06/14/19 10:30 Dose: 100 mg Documented by: Dorzolamide HCl (Trusopt 2%) 1 drop OU BID [facility] Last Admin: 06/14/19 10:34 Dose: 1 drop Documented by: Enoxaparin Sodium (Lovenox -) 40 mg SQ DAILY [facility] Last Admin: 06/14/19 10:29 Dose: 40 mg Documented by: Piperacillin Sod/Tazobactam (Sod 2.25 gm/ Dextrose) 50 mls @ 100 mls/hr IVPB Q8H-IV [facility]; Protocol Last Admin: 06/14/19 17:33 Dose: 100 mls/hr Documented by: Sodium Chloride (Normal Saline -) 1,000 mls @ 75 mls/hr IV ASDIR [facility] Last Admin: 06/14/19 14:00 Dose: 75 mls/hr Documented by: Insulin Aspart (Novolog Vial Sliding Scale -) 1 vial SQ ACHS [facility]; Protocol Last Admin: 06/14/19 17:33 Dose: 4 units Documented by: Latanoprost (Xalatan 0.005% Eye Drops -) 1 drop OU HS [facility] Last Admin: 06/14/19 00:03 Dose: 1 drop Documented by: Lorazepam (Ativan Injection -) 0.5 mg IVPUSH Q3H PRN PRN Reason: ANXIETY Last Admin: 06/12/19 14:07 Dose: 0.5 mg Documented by: Methylprednisolone Sodium Succinate (Solu-Medrol -) 40 mg IVPUSH Q8H-IV [facility] Last Admin: 06/14/19 17:33 Dose: Not Given Documented by: Oxycodone HCl (Roxicodone -) 5 mg PO Q4H PRN PRN Reason: PAIN LEVEL 1-5 Oxycodone HCl (Roxicodone -) 10 mg PO Q4H PRN PRN Reason: PAIN LEVEL 6-10 Last Admin: 06/14/19 20:54 Dose: 10 mg Documented by: Pilocarpine HCl (Pilostat 2% -) 1 drop OU BID [facility] Last Admin: 06/14/19 10:33 Dose: 1 drop Documented by: Polyethylene Glycol (Miralax (For Daily Use) -) 17 gm PO DAILY [facility] Last Admin: 06/14/19 10:30 Dose: Not Given Documented by: Senna (Senna -) 2 tab PO DAILY PRN PRN Reason: CONSTIPATION Timolol Maleate (Timoptic 0.5%) 1 drop OU BID [facility] Last Admin: 06/14/19 10:34 Dose: 1 drop Documented by: - Objective Vital Signs: Vital Signs Temperature 97.9 F 06/14/19 20:23 Pulse Rate 76 06/14/19 20:23 Respiratory Rate 20 06/14/19 20:23 Blood Pressure 101/52 L 06/14/19 20:23 O2 Sat by Pulse Oximetry (%) 93 L 06/14/19 09:00 Constitutional: Yes: No Distress Cardiovascular: Yes: Regular Rate and Rhythm Respiratory: Yes: Regular Gastrointestinal: Yes: Normal Bowel Sounds, Soft Integumentary: Yes: WNL Neurological: Yes: Alert, Weakness Labs: CBC, BMP 06/14/19 10:50 06/14/19 10:50 INR, PTT INR 0.81 (0.83-1.09) L 06/10/19 12:33 Microbiology 06/10/19 12:33 Blood - Peripheral Venous Blood Culture - Preliminary NO GROWTH OBTAINED AFTER 96 HOURS, INCUBATION TO CONTINUE FOR 1 DAYS. 06/10/19 12:33 Blood - Peripheral Venous Blood Culture - Preliminary Staphylococcus Coagulase Neg 06/10/19 20:00 Urine For Antigen Detection Streptococcus pneumoniae Antigen (M - Final 06/10/19 13:20 Urine - Urine - Catheterized Urine Culture - Final NO GROWTH OBTAINED Problem List - Problems (1) Pneumonia Code(s): J18.9 - PNEUMONIA, UNSPECIFIED ORGANISM Qualifiers: Pneumonia type: due to unspecified organism Laterality: right (2) Respiratory distress Code(s): R06.03 - ACUTE RESPIRATORY DISTRESS (3) Sepsis Code(s): A41.9 - SEPSIS, UNSPECIFIED ORGANISM Qualifiers: Sepsis type: sepsis due to unspecified organism Sepsis acute organ dysfunction status: unspecified Qualified Code(s): A41.9 - Sepsis, unspecified organism (4) CAIN (acute kidney injury) Code(s): N17.9 - ACUTE KIDNEY FAILURE, UNSPECIFIED (5) Acute respiratory failure Code(s): J96.00 - ACUTE RESPIRATORY FAILURE, UNSP W HYPOXIA OR HYPERCAPNIA Qualifiers: Respiratory failure complication: hypoxia Qualified Code(s): J96.01 - Acute respiratory failure with hypoxia (6) Barretts esophagus Code(s): K22.70 - HANKS'S ESOPHAGUS WITHOUT DYSPLASIA (7) CHF (congestive heart failure) Code(s): I50.9 - HEART FAILURE, UNSPECIFIED (8) COPD exacerbation Code(s): J44.1 - CHRONIC OBSTRUCTIVE PULMONARY DISEASE W (ACUTE) EXACERBATION (9) Cavitating mass of lung Code(s): J98.4 - OTHER DISORDERS OF LUNG Assessment/Plan Sepsis/Shock PNA COPD exacerbation CAIN Acute resp failure Lung mass - suspect malignancy -- COVID-19 PCR negative -- continue Zosyn , s/p course of Azithromycin -- repeat blood culture pending, initial likely contaminated -- monitor renal function , worsening, Nephrology evaluating - monitor O2 sat/vitals Pt afebrile, without distress
[2019-06-15] MEDS: oxyCODONE HCL 5 MG TABLET PO PRN (01:03)
[2019-06-15] MEDS ORDERED: PIPERACILLIN/TAZOBACTAM 2.25 GM VIAL IVPB ONE ×3 (01:40→17:51)
[2019-06-15] MEDS ORDERED: DEXTROSE 5%-WATER - 50 ML IVPB ONE ×3 (01:41→17:51)
[2019-06-15] MEDS: methylPREDNISolone NA SUCC 40 MG/1 ML VIAL IVPUSH SCH ×3 (01:47→17:54)
[2019-06-15] MEDS: PIPERACILLIN/TAZOB 2.25 GM 2.25 GM in DEXTROSE 5%-WATER - 50 ML IVPB SCH ×3 (01:47→17:54)
[2019-06-15] MEDS: SODIUM CHLORIDE 1,000 ML IV SCH (06:43)
[2019-06-15] MEDS: INSULIN SLIDING SCALE (NOVOLOG) 1 VIAL SQ SCH ×3 (06:44→17:53)
[2019-06-15 09:47] LABS: BASO % 0.2 % (0-2.0); EOS % 0.4 % (0-4.5); HEMATOCRIT 33.8 % (32.4-45.2); HEMOGLOBIN 10.3 GM/dL (10.7-15.3); LYMPH % 8.3 % (8-40); MCH 29.5 pg (25.7-33.7); MCHC 30.4 g/dl (32.0-36.0); MEAN PLT VOLUME 11.4 fl (7.5-11.1); NEUT % 88.1 % (42.8-82.8); PLATELET COUNT 471 K/MM3 (134-434); RBC 3.49 M/mm3 (3.60-5.2); RDW 16.5 % (11.6-15.6); WHITE BLOOD COUNT 11.8 K/mm3 (4.0-10.0)
[2019-06-15] MEDS: ENOXAPARIN NA (PORCINE) 40 MG/0.4 ML DISP.SYRIN SQ SCH (09:48)
[2019-06-15] MEDS: DOCUSATE SODIUM 100 MG CAPSULE (FP) PO SCH (09:48)
[2019-06-15] MEDS: POLYETHYLENE GLYCOL 3350 119 GM BTL PO SCH (09:49)
[2019-06-15] MEDS: PILOCARPINE 2% OPHTHALMIC SOLUTION 15 ML BOTTLE OU SCH (09:52)
[2019-06-15] MEDS: BRIMONIDINE TARTRATE 0.2% OPHTHALMIC 5 ML BOTTLE OU SCH (09:52)
[2019-06-15] MEDS: TIMOLOL 0.5% OPHTHALMIC SOL 5 ML BOTTLE OU SCH (09:53)
[2019-06-15] MEDS: DORZOLAMIDE 2% HCL OPHTHALMIC SOLUTION 10 ML BOTTLE OU SCH (09:54)
[2019-06-15 10:27] LABS: ALBUMIN 1.2 g/dl (3.4-5.0); BILIRUBIN,TOTAL 0.6 mg/dL (0.2-1); BLOOD UREA NITROGEN 81.2 mg/dL (7-18); CALCIUM 7.9 mg/dL (8.5-10.1); CREATININE 3.7 mg/dL (0.55-1.3); MAGNESIUM 2.7 mg/dL (1.8-2.4); POTASSIUM 5.5 mmol/L (3.5-5.1)
[2019-06-15 11:12] LABS: PHOSPHOROUS 9.6 mg/dL (2.5-4.9)
[2019-06-15] MEDS ORDERED: MORPHINE SULFATE 2 MG/ML VIAL IVPUSH ONE (11:30)
--- NOTE | 2019-06-15 11:54 | PN ---
Progress Note, Physician History of Present Illness: patient looks lethargic resp distress on non rebreather 100 percent renal failure - Current Medication List Current Medications: Active Medications Acetaminophen (Tylenol -) 650 mg PO Q6H PRN PRN Reason: Fever Last Admin: 06/11/19 20:40 Dose: 650 mg Documented by: Brimonidine Tartrate (Alphagan 0.2% -) 1 drop OU BID [facility] Last Admin: 06/15/19 09:52 Dose: 1 drop Documented by: Docusate Sodium (Colace -) 100 mg PO BID [facility] Last Admin: 06/15/19 09:48 Dose: Not Given Documented by: Dorzolamide HCl (Trusopt 2%) 1 drop OU BID [facility] Last Admin: 06/15/19 09:54 Dose: 1 drop Documented by: Enoxaparin Sodium (Lovenox -) 40 mg SQ DAILY [facility] Last Admin: 06/15/19 09:48 Dose: 40 mg Documented by: Piperacillin Sod/Tazobactam (Sod 2.25 gm/ Dextrose) 50 mls @ 100 mls/hr IVPB Q8H-IV [facility]; Protocol Last Admin: 06/15/19 09:54 Dose: 100 mls/hr Documented by: Sodium Chloride (Normal Saline -) 1,000 mls @ 75 mls/hr IV ASDIR [facility] Last Admin: 06/15/19 06:43 Dose: 75 mls/hr Documented by: Insulin Aspart (Novolog Vial Sliding Scale -) 1 vial SQ ACHS [facility]; Protocol Last Admin: 06/15/19 06:44 Dose: 2 units Documented by: Latanoprost (Xalatan 0.005% Eye Drops -) 1 drop OU HS [facility] Last Admin: 06/14/19 22:30 Dose: 1 drop Documented by: Lorazepam (Ativan Injection -) 0.5 mg IVPUSH Q3H PRN PRN Reason: ANXIETY Last Admin: 06/12/19 14:07 Dose: 0.5 mg Documented by: Methylprednisolone Sodium Succinate (Solu-Medrol -) 40 mg IVPUSH Q8H-IV [facility] Last Admin: 06/15/19 09:48 Dose: 40 mg Documented by: Oxycodone HCl (Roxicodone -) 5 mg PO Q4H PRN PRN Reason: PAIN LEVEL 1-5 Oxycodone HCl (Roxicodone -) 10 mg PO Q4H PRN PRN Reason: PAIN LEVEL 6-10 Last Admin: 06/15/19 01:03 Dose: 10 mg Documented by: Pilocarpine HCl (Pilostat 2% -) 1 drop OU BID [facility] Last Admin: 06/15/19 09:52 Dose: 1 drop Documented by: Polyethylene Glycol (Miralax (For Daily Use) -) 17 gm PO DAILY [facility] Last Admin: 06/15/19 09:49 Dose: Not Given Documented by: Senna (Senna -) 2 tab PO DAILY PRN PRN Reason: CONSTIPATION Timolol Maleate (Timoptic 0.5%) 1 drop OU BID [facility] Last Admin: 06/15/19 09:53 Dose: 1 drop Documented by: - Objective Vital Signs: Vital Signs Temperature 97.4 F L 06/15/19 06:00 Pulse Rate 56 L 06/15/19 06:00 Respiratory Rate 18 06/15/19 06:00 Blood Pressure 111/71 06/15/19 06:00 O2 Sat by Pulse Oximetry (%) 92 L 06/14/19 21:00 Constitutional: Yes: Other Cardiovascular: Yes: S1, S2 Respiratory: Yes: Poor Air Entry, Other (on non breathert) Gastrointestinal: Yes: Normal Bowel Sounds, Hypoactive Bowel Sounds Musculoskeletal: Yes: WNL Extremities: Yes: Other Neurological: Yes: Other (lethargic) Psychiatric: Yes: Other Labs: CBC, BMP 06/15/19 07:00 06/15/19 07:00 INR, PTT INR 0.81 (0.83-1.09) L 06/10/19 12:33 Assessment/Plan Problem List - Problems (1) Pneumonia Code(s): J18.9 - PNEUMONIA, UNSPECIFIED ORGANISM Qualifiers: Pneumonia type: due to unspecified organism Laterality: right (2) Respiratory distress Code(s): R06.03 - ACUTE RESPIRATORY DISTRESS (3) Sepsis Code(s): A41.9 - SEPSIS, UNSPECIFIED ORGANISM Qualifiers: Sepsis type: sepsis due to unspecified organism Sepsis acute organ dysfunction status: unspecified Qualified Code(s): A41.9 - Sepsis, unspecified organism (4) CAIN (acute kidney injury) Code(s): N17.9 - ACUTE KIDNEY FAILURE, UNSPECIFIED (5) Acute respiratory failure Code(s): J96.00 - ACUTE RESPIRATORY FAILURE, UNSP W HYPOXIA OR HYPERCAPNIA Qualifiers: Respiratory failure complication: hypoxia Qualified Code(s): J96.01 - Acute respiratory failure with hypoxia (6) Barretts esophagus Code(s): K22.70 - HANSK'S ESOPHAGUS WITHOUT DYSPLASIA (7) CHF (congestive heart failure) Code(s): I50.9 - HEART FAILURE, UNSPECIFIED (8) COPD exacerbation Code(s): J44.1 - CHRONIC OBSTRUCTIVE PULMONARY DISEASE W (ACUTE) EXACERBATION (9) Cavitating mass of lung Code(s): J98.4 - OTHER DISORDERS OF LUNG Assessment/Plan Sepsis/Shock PNA COPD exacerbation CAIN Acute resp failure Lung mass - suspect malignancy patient not doing well now lethargic on non breather poor prognosis supportive care nephro on case
[2019-06-15 12:44] LABS: ANISOCYTOSIS 0; MACROCYTOSIS 0; PLATELET ESTIMATE NORMAL
[2019-06-15] MEDS ORDERED: SODIUM POLYSTYRENE SULFONATE 15 GM/60 ML BOTTLE PO ONE (14:00)
[2019-06-15] MEDS ORDERED: SODIUM CHLORIDE 500 ML IV STA (14:45)
--- NOTE | 2019-06-15 15:42 | PN ---
Progress Note, Physician History of Present Illness: pulmonary unresponsive on 100% nrm - Current Medication List Current Medications: Active Medications Acetaminophen (Tylenol -) 650 mg PO Q6H PRN PRN Reason: Fever Last Admin: 06/11/19 20:40 Dose: 650 mg Documented by: Brimonidine Tartrate (Alphagan 0.2% -) 1 drop OU BID [facility] Last Admin: 06/15/19 09:52 Dose: 1 drop Documented by: Docusate Sodium (Colace -) 100 mg PO BID [facility] Last Admin: 06/15/19 09:48 Dose: Not Given Documented by: Dorzolamide HCl (Trusopt 2%) 1 drop OU BID [facility] Last Admin: 06/15/19 09:54 Dose: 1 drop Documented by: Enoxaparin Sodium (Lovenox -) 40 mg SQ DAILY [facility] Last Admin: 06/15/19 09:48 Dose: 40 mg Documented by: Piperacillin Sod/Tazobactam (Sod 2.25 gm/ Dextrose) 50 mls @ 100 mls/hr IVPB Q8H-IV [facility]; Protocol Last Admin: 06/15/19 09:54 Dose: 100 mls/hr Documented by: Sodium Chloride (Normal Saline -) 500 mls @ 500 mls/hr IV ASDIR [facility] Stop: 06/15/19 15:44 Last Admin: 06/15/19 15:29 Dose: 500 mls/hr Documented by: Sodium Chloride (Normal Saline -) 1,000 mls @ 100 mls/hr IV ASDIR [facility] Insulin Aspart (Novolog Vial Sliding Scale -) 1 vial SQ ACHS [facility]; Protocol Last Admin: 06/15/19 12:11 Dose: Not Given Documented by: Latanoprost (Xalatan 0.005% Eye Drops -) 1 drop OU HS [facility] Last Admin: 06/14/19 22:30 Dose: 1 drop Documented by: Lorazepam (Ativan Injection -) 0.5 mg IVPUSH Q3H PRN PRN Reason: ANXIETY Last Admin: 06/12/19 14:07 Dose: 0.5 mg Documented by: Methylprednisolone Sodium Succinate (Solu-Medrol -) 40 mg IVPUSH Q8H-IV [facility] Last Admin: 06/15/19 09:48 Dose: 40 mg Documented by: Oxycodone HCl (Roxicodone -) 5 mg PO Q4H PRN PRN Reason: PAIN LEVEL 1-5 Oxycodone HCl (Roxicodone -) 10 mg PO Q4H PRN PRN Reason: PAIN LEVEL 6-10 Last Admin: 06/15/19 01:03 Dose: 10 mg Documented by: Pilocarpine HCl (Pilostat 2% -) 1 drop OU BID [facility] Last Admin: 06/15/19 09:52 Dose: 1 drop Documented by: Polyethylene Glycol (Miralax (For Daily Use) -) 17 gm PO DAILY [facility] Last Admin: 06/15/19 09:49 Dose: Not Given Documented by: Senna (Senna -) 2 tab PO DAILY PRN PRN Reason: CONSTIPATION Timolol Maleate (Timoptic 0.5%) 1 drop OU BID [facility] Last Admin: 06/15/19 09:53 Dose: 1 drop Documented by: - Objective Vital Signs: Vital Signs Temperature 97.4 F L 06/15/19 06:00 Pulse Rate 92 H 06/15/19 10:00 Respiratory Rate 16 06/15/19 09:00 Blood Pressure 128/60 06/15/19 10:00 O2 Sat by Pulse Oximetry (%) 92 L 06/14/19 21:00 Constitutional: Yes: Well Nourished, Thin, Other (unresponsive) Eyes: Yes: WNL HENT: Yes: WNL Neck: Yes: WNL Cardiovascular: Yes: Regular Rate and Rhythm, S1, S2 Respiratory: Yes: Diminished Gastrointestinal: Yes: Normal Bowel Sounds, Soft Extremities: Yes: WNL Edema: No Labs: CBC, BMP 06/15/19 07:00 06/15/19 07:00 INR, PTT INR 0.81 (0.83-1.09) L 06/10/19 12:33 Problem List - Problems (1) Hypoxia Code(s): R09.02 - HYPOXEMIA (2) Pneumonia Code(s): J18.9 - PNEUMONIA, UNSPECIFIED ORGANISM Qualifiers: Pneumonia type: due to unspecified organism Laterality: right (3) Respiratory distress Code(s): R06.03 - ACUTE RESPIRATORY DISTRESS (4) Acute respiratory failure Code(s): J96.00 - ACUTE RESPIRATORY FAILURE, UNSP W HYPOXIA OR HYPERCAPNIA Qualifiers: Respiratory failure complication: hypoxia Qualified Code(s): J96.01 - Acute respiratory failure with hypoxia Assessment/Plan A/P Acute on Chronic Hypoxic Respiratory Failure Pneumonia Acute COPD Exacerbation Septic Shock Acute Kidney Injury LV Diastolic Dysfunction Lung Nodule likely malignant Diverticulosis GERD - antibiotics per ID - taper medrol - inhaled bronchodilators - O2 to keep SpO2 >90% - aspiration precautions - pt DNR/DNI - PROGNOSIS [id number] VEGA
[2019-06-15] MEDS ORDERED: SODIUM CHLORIDE 1,000 ML IV SCH (15:45)
--- NOTE | 2019-06-15 16:47 | PN ---
Progress Note (short form) - Note Progress Note: Patient seen and examined. Minimally responsive, on NRB with increased work breathing. OBJECTIVE: Vital Signs Temp 97.4 F L 06/15/19 06:00 Pulse 92 H 06/15/19 10:00 Resp 16 06/15/19 09:00 BP 128/60 06/15/19 10:00 Pulse Ox 92 L 06/14/19 21:00 Intake & Output 06/14/19 06/15/19 06/15/19 23:59 11:59 23:59 Intake Total 500 950 0 Output Total 100 Balance 500 850 0 Weight 105 lb 105 lb Intake: IV 300 900 Normal Saline - 1,000 ml 300 900 @ 75 mls/hr IV ASDIR ERASTO Rx#:[id number] IVPB 100 50 Oral 100 0 Output: Urine 100 Norton 100 Other: Voiding Method Indwelling Catheter Indwelling Catheter Indwelling Catheter Bowel Movement Yes No # Bowel Movements 2 Height 5 ft 2 in Body Mass Index (BMI) 19.2 Weight Measurement Method Built in [facility] CBC, BMP 06/15/19 07:00 06/15/19 07:00 PHYSICAL EXAM GENERAL: awake, fatigued, on nrb with +accessory muscle use. HEAD: Normal with no signs of trauma. LUNGS: + accessory muscle use, + crackles b/l HEART: tachy, S1, S2 ABDOMEN: Soft, nontender, nondistended A/P: 83 y/o F w. PMHx HTN, chronic diastolic heart failure, type 2 DM, chronic hypoxic respiratory failure, COPD, adrenal adenoma, Hammond esophagus, lung mass, diverticulosis, GERD, esophageal stricture, gastroparesis sent from [facility] with respiratory distress, cough and hypoxia. COVID negative, Influenza A&B negative 1. Septic shock secondary to pneumonia - Continue Zosyn, Zithromax- ID recs appreciated - Off pressors -Pt is decompensating with increased work of breathing and worsening renal function. Extensive discussion with pts son regarding comfort care. Pts son refusing and stating pt is full code. Patient has [facility] forms for DNR/DNI signed by her in the chart from [place]. Spoke at length possibility of withdrawing care and making pt comfortable as she is struggling to breath, son refusing. Aware pt's prognosis is grave. Palliative Care currently working with pts son regarding prognosis. 2. Acute on chronic hypoxic respiratory failure secondary to acute exacerbation of COPD - continue SoluMedrol-convert to prednisone per pulmonary - Oxygen to maintain saturation >90% 3. Acute kidney injury -Renal consult appreciated-BUN/Creatinine continues to climb - continue IV fluid - Monitor BUN, creatinine 4. Chronic diastolic heart failure - Stable 5. HTN - On no meds 6. Type 2 DM - Continue Novolog sliding scale 7. Adrenal adenoma 8. GERD with Hammond esophagus 9. 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 Diverticulosis 11. Gastroparesis d/w attending Dr Ledesma
--- NOTE | 2019-06-15 17:34 | PN ---
Progress Note, Physician Chief Complaint: Acute Renal Failure History of Present Illness: Seen and examined at the bedside not responsive on NRB mask Remains anuric as urine output < 100cc - Current Medication List Current Medications: Active Medications Acetaminophen (Tylenol -) 650 mg PO Q6H PRN PRN Reason: Fever Last Admin: 06/11/19 20:40 Dose: 650 mg Documented by: Brimonidine Tartrate (Alphagan 0.2% -) 1 drop OU BID [facility] Last Admin: 06/15/19 09:52 Dose: 1 drop Documented by: Docusate Sodium (Colace -) 100 mg PO BID [facility] Last Admin: 06/15/19 09:48 Dose: Not Given Documented by: Dorzolamide HCl (Trusopt 2%) 1 drop OU BID [facility] Last Admin: 06/15/19 09:54 Dose: 1 drop Documented by: Enoxaparin Sodium (Lovenox -) 40 mg SQ DAILY [facility] Last Admin: 06/15/19 09:48 Dose: 40 mg Documented by: Piperacillin Sod/Tazobactam (Sod 2.25 gm/ Dextrose) 50 mls @ 100 mls/hr IVPB Q8H-IV [facility]; Protocol Last Admin: 06/15/19 09:54 Dose: 100 mls/hr Documented by: Sodium Chloride (Normal Saline -) 1,000 mls @ 100 mls/hr IV ASDIR ERASTO Insulin Aspart (Novolog Vial Sliding Scale -) 1 vial SQ ACHS [facility]; Protocol Last Admin: 06/15/19 12:11 Dose: Not Given Documented by: Latanoprost (Xalatan 0.005% Eye Drops -) 1 drop OU HS [facility] Last Admin: 06/14/19 22:30 Dose: 1 drop Documented by: Lorazepam (Ativan Injection -) 0.5 mg IVPUSH Q3H PRN PRN Reason: ANXIETY Last Admin: 06/12/19 14:07 Dose: 0.5 mg Documented by: Methylprednisolone Sodium Succinate (Solu-Medrol -) 40 mg IVPUSH Q8H-IV [facility]STO Last Admin: 06/15/19 09:48 Dose: 40 mg Documented by: Oxycodone HCl (Roxicodone -) 5 mg PO Q4H PRN PRN Reason: PAIN LEVEL 1-5 Oxycodone HCl (Roxicodone -) 10 mg PO Q4H PRN PRN Reason: PAIN LEVEL 6-10 Last Admin: 06/15/19 01:03 Dose: 10 mg Documented by: Pilocarpine HCl (Pilostat 2% -) 1 drop OU BID [facility] Last Admin: 06/15/19 09:52 Dose: 1 drop Documented by: Polyethylene Glycol (Miralax (For Daily Use) -) 17 gm PO DAILY [facility] Last Admin: 06/15/19 09:49 Dose: Not Given Documented by: Senna (Senna -) 2 tab PO DAILY PRN PRN Reason: CONSTIPATION Timolol Maleate (Timoptic 0.5%) 1 drop OU BID [facility] Last Admin: 06/15/19 09:53 Dose: 1 drop Documented by: - Objective Vital Signs: Vital Signs Temperature 97.4 F L 06/15/19 06:00 Pulse Rate 92 H 06/15/19 10:00 Respiratory Rate 16 06/15/19 09:00 Blood Pressure 128/60 06/15/19 10:00 O2 Sat by Pulse Oximetry (%) 92 L 06/14/19 21:00 Constitutional: Yes: Mild Distress HENT: Yes: Atraumatic Neck: Yes: Supple Respiratory: Yes: Diminished, On Venti-Mask. No: Rales, Rhonchi, Wheezes Gastrointestinal: Yes: Soft. No: Tenderness Extremities: No: Cyanosis Edema: No Labs: CBC, BMP 06/15/19 07:00 06/15/19 07:00 INR, PTT INR 0.81 (0.83-1.09) L 06/10/19 12:33 Problem List - Problems (1) Pneumonia Code(s): J18.9 - PNEUMONIA, UNSPECIFIED ORGANISM Qualifiers: Pneumonia type: due to unspecified organism Laterality: right (2) Sepsis Code(s): A41.9 - SEPSIS, UNSPECIFIED ORGANISM Qualifiers: Sepsis type: sepsis due to unspecified organism Sepsis acute organ dysfunction status: unspecified Qualified Code(s): A41.9 - Sepsis, unspecified organism (3) Suspected 2019 novel coronavirus infection Code(s): R68.89 - OTHER GENERAL SYMPTOMS AND SIGNS (4) CAIN (acute kidney injury) Code(s): N17.9 - ACUTE KIDNEY FAILURE, UNSPECIFIED (5) Abdominal pain Code(s): R10.9 - UNSPECIFIED ABDOMINAL PAIN Qualifiers: Abdominal location: left lower quadrant Qualified Code(s): R10.32 - Left lower quadrant pain (6) Acute exacerbation of CHF (congestive heart failure) Code(s): I50.9 - HEART FAILURE, UNSPECIFIED Qualifiers: Heart failure type: unspecified Qualified Code(s): I50.9 - Heart failure, unspecified (7) COPD exacerbation Code(s): J44.1 - CHRONIC OBSTRUCTIVE PULMONARY DISEASE W (ACUTE) EXACERBATION Assessment/Plan 83 year old woman with history of hypertension, DM, COPD, CHF (diastolic dysfunction), barrestts esophagus, Lung mass, diverticulosis admitted with PNA/Sepsis now with CAIN. 1. Acute kidney injury r/o ATN vs. AIN vs. intravascular volume depletion vs. obstruction 2. PNA 3. COPD exacerbation 4. Hx of diastolic HF w/o acute exacerbation 5. DM Urine studies show low urine Na indicating tubular function is preserved will increase IVF rate (CXR shows no HF/effusions) Renal US showed no obstruction maintain lui for now, flush daily no acute need for R D MANAGER Maintain MAP > 65 avoid nephrotoxins/IV contrast/NSAIDs repeat bMP this afternoon to monitor K prognosis is poor Thank you Chon Woods DO
[2019-06-15] MEDS ORDERED: INSULIN (NOVOLOG) ASPART 100 UNITS/ML 10ML VIAL ONE (17:51)
[2019-06-15 19:09] VITALS: BP 102/58; PULSE 88; TEMP 97.9
[2019-06-15 19:15] LABS: BLOOD UREA NITROGEN 80.6 mg/dL (7-18); CALCIUM 7.8 mg/dL (8.5-10.1); CREATININE 3.7 mg/dL (0.55-1.3)
[2019-06-15 19:19] LABS: POTASSIUM 6.8 mmol/L (3.5-5.1)
[2019-06-15] MEDS ORDERED: CALCIUM GLUCONATE 10% - 1,000 MG/10 ML VIAL IVPB ONE (20:14)
[2019-06-15] MEDS ORDERED: DEXTROSE 50%-WATER - 25 GM/50 ML VIAL IVPUSH ONE ×2 (20:15→20:45)
[2019-06-15] MEDS ORDERED: INSULIN (NOVOLOG) ASPART 100 UNITS/ML 10ML VIAL SQ ONE (20:15)
--- NOTE | 2019-06-15 21:03 | PN ---
Progress Note (short form) - Note Progress Note: RN notified MD while on floor at 20:55 that pt had no pulse. Code status confirmed. Pt NOT covid r/o. Pt assessed immediately. Pt was unresponsive even to painful stimuli. Pupils are fixed and non reactive. Pt has no spontaneous breathing, no heart sounds, or breath sounds. No carotid or femoral pulses present. Time of 20:57 Family notified. Body to be released to home of choice.
== END 2019-06-15 23:42 | disposition expired | DRG 871 ==
LOC: JER 12:19 → JERBED 14:04 → JICU-2 06-11 16:40 → J8W 06-12 18:35 → J6S 06-13 15:51
PROVIDERS: ADMIT Internal Medicine; ATTEND Internal Medicine
DX: A41.9 Sepsis, unspecified organism (principal); J18.9 Pneumonia, unspecified organism; J96.21 Acute and chronic respiratory failure with hypoxia; R65.21 Severe sepsis with septic shock; J44.1 Chronic obstructive pulmonary disease with (acute) exacerbation; N17.9 Acute kidney failure, unspecified; I50.32 Chronic diastolic (congestive) heart failure; E11.9 Type 2 diabetes mellitus without complications; I95.9 Hypotension, unspecified; K21.9 Gastro-esophageal reflux disease without esophagitis; I11.0 Hypertensive heart disease with heart failure; K57.90 Diverticulosis of intestine, part unspecified, without perforation or abscess without bleeding; E11.43 Type 2 diabetes mellitus with diabetic autonomic (poly)neuropathy; K31.84 Gastroparesis
CPT/HCPCS: 36415; 71045-TC-FY; 76775-TC; 80048; 80053; 81003; 82550; 82553; 82565; 82570; 82803; 82962; 83605; 83735; 84100; 84156; 84300; 84443; 84484; 84540; 85025; 85610; 85730; 86850; 86900; 86901; 87040; 87086; 87186; 87205; 87804; 87899; 93005; 93010; 99291; 99292; J7030; U0001; U0002